=== PATIENT | female | born 1945 | race Caucasian/White ===

== ENCOUNTER 2018-10-20 06:19 | Day surgery (SDC) | payer MEDICARE, OTHER ==
[2018-10-18 11:57] VITALS: BMI 45.7
[~2018-10-20 06:19] MED LIST: LACTATED RINGERS 1,000 ML IV SCH; LIDOCAINE 1% 20 ML VIAL (10MG/ML) FOR IV START INTRADERMA PRN; TETRACAINE 0.5% OPHTH (PF) DROPS 4 ML BTL OP ONE
[2018-10-20] MEDS: PHENYLEPHRINE 2.5% OPHTH DRP 2ML OP NR ×3 (06:45→07:05)
[2018-10-20] MEDS: CYCLOPENTOLATE 1% OPHTH SOLN 2 ML BTL OP ONE ×3 (06:50→07:10)
[2018-10-20 07:12] LABS: Glucose,Whole Blood 132 mg/dL (75-99)
[2018-10-20] MEDS: TOBRAMYCIN 0.3% OPHTH DROPS 5 ML BTL OPHTHALMIC NR ×2 (07:29→07:40)
[2018-10-20] MEDS: TIMOLOL 0.5% OPHTH DROPS 5 ML BTL OP ONE ×2 (07:29→07:40)
[2018-10-20 07:30] VITALS: TEMP 97.8
[2018-10-20] MEDS ORDERED: DUOVISC KIT (GREEN BOX) INTRAOCULA ONE ×2 (07:31→07:40)
[2018-10-20] MEDS ORDERED: BALANCED SALT IRRIG SOLN COMB2 15 ML IRRIG.SOLN INTRAOCULA ONE ×2 (07:31→07:40)
[2018-10-20] MEDS ORDERED: LIDOCAINE 1% (PF) 10MG/ML VIAL SQ ONE ×2 (07:31→07:40)
[2018-10-20] MEDS ORDERED: EPINEPHrine (PF) 0.3 ML in BALANCED SALT IRRIG SOLN COMB2 500 ML IRRIGATION ONE ×4 (07:32)
[2018-10-20] MEDS ORDERED: MIDAZOLAM 2 MG/2 ML VIAL ONE (07:35)
[2018-10-20] MEDS ORDERED: fentaNYL (PF) 50 MCG/ML 2 ML AMP ONE (07:35)
--- NOTE | 2018-10-20 08:09 | P.OP ---
Date of Procedure: 10/20/18 Preoperative Diagnosis: NS Postoperative Diagnosis: same Procedure(s) Performed: PIOL, OD Implants: PCB00 19.00 Anesthesia: MAC Surgeon: Ozzie Kruger Estimated Blood Loss (ml): 0 Pathology: none sent Condition: stable Disposition: same day Indications for Procedure: blurry vision Operative Findings: No complications
[2018-10-20 08:14] VITALS: RESP 18
[2018-10-20 08:41] VITALS: BP 134/74; PULSE 78
--- NOTE | 2018-10-20 20:10 | OP ---
OPERATIVE REPORT DATE OF SURGERY: 10/20/2018. PROCEDURE: Phacoemulsification of cataract and intraocular lens implant of the right eye. PREOPERATIVE DIAGNOSIS: Nuclear sclerosis. POSTOPERATIVE DIAGNOSIS: Nuclear sclerosis. NARRATIVE: After obtaining the appropriate consent, the patient was brought to the operating room. There the patient was placed under cardiac monitoring, prepped and draped in the usual sterile manner. The patient was approached from the @@right@@left temporal side. The @@ mm Jey ring inked in gentian katiuska was placed centrally on the cornea. At the 11 o'clock position, a 1.1 mm keratome was used to create a paracentesis port. Through this opening, 1% Xylocaine MPF 50/50 mix with balanced salt solution was injected into the anterior chamber. This was followed by stabilization of the anterior chamber with Duovisc viscoelastic. At the 9 o'clock position, a 2.75 mm igor keratome was used to create a self-scaling corneal flap incision in a Langerman fashion. Through this opening, a cystotome was introduced to begin a continuous tear capsulorrhexis which was completed using the Utrata forceps. Care was taken to ensure that the capsulorrhexis was at least the size of the ada on the anterior cornea. Hydrodissection and hydrodelineation of the lens was accomplished with balanced salt solution. Phacoemulsification of the lens utilizing phaco chop was accomplished in 26.27 seconds at 16% power. Addition Xylocaine MPF was instilled into the anterior chamber. This was followed by removal of the remaining cortex under irrigation and aspiration along with careful polishing of the posterior capsule in a capsule vacuum mode. Additional Amvisc viscoelastic was then used to stabilize the capsular bag, and the [id number] 19.0 diopter Crystalens intraocular lens was injected into the capsular bag without difficult. The lens was rotated 270 degrees so that the haptics resided at the 6 and 12 o'clock positions, and all remaining viscoelastic was then removed from within the capsular bag and around the anterior chamber. The eye was brought to normal intraocular pressure through the paracentesis port along with slight hydration of the incision sites. Watertight integrity was confirmed using a fluorescein strip. The patient then received 2 drops of 0.5% timolol followed by 2 drops of Vigamox and 2 drops of 1% atropine. The patient was then lightly patched and shielded in the usual manner. There was no complications from the procedure. The patient tolerated the procedure well and was returned to outpatient recovery in good condition. TODD / CLAIRN: [id number] /
== END 2018-10-20 08:54 | disposition home or self-care (01) ==
LOC: OR 06:19
PROVIDERS: ATTEND Ophthalmology
DX: E11.36 Type 2 diabetes mellitus with diabetic cataract (principal); H00.023 Hordeolum internum right eye, unspecified eyelid; H00.026 Hordeolum internum left eye, unspecified eyelid; H01.024 Squamous blepharitis left upper eyelid; H52.4 Presbyopia; H52.11 Myopia, right eye; H52.02 Hypermetropia, left eye; I10 Essential (primary) hypertension; J45.909 Unspecified asthma, uncomplicated; E66.9 Obesity, unspecified; I48.91 Unspecified atrial fibrillation; Z79.4 Long term (current) use of insulin; Z79.899 Other long term (current) drug therapy; Z79.1 Long term (current) use of non-steroidal anti-inflammatories (NSAID); Z88.1 Allergy status to other antibiotic agents; Z79.891 Long term (current) use of opiate analgesic; Z87.891 Personal history of nicotine dependence; Z88.8 Allergy status to other drugs, medicaments and biological substances; Z91.048 Other nonmedicinal substance allergy status; Z68.42 Body mass index [BMI] 45.0-49.9, adult

== ENCOUNTER 2018-11-10 09:19 | Day surgery (SDC) | payer MEDICARE, OTHER ==
[2018-11-04 14:46] VITALS: BMI 44.1
[~2018-11-10 09:19] MED LIST changes: +Pre Op ABX Message 1 EACH MISC MISCELLANE ONE
[2018-11-10 09:52] VITALS: RESP 20; TEMP 97.9
[2018-11-10] MEDS: CYCLOPENTOLATE 1% OPHTH SOLN 2 ML BTL OP ONE ×4 (10:07→10:25)
[2018-11-10] MEDS: PHENYLEPHRINE 2.5% OPHTH DRP 2ML OP NR ×4 (10:12→10:34)
[2018-11-10 10:16] LABS: Glucose,Whole Blood 118 mg/dL (75-99)
[2018-11-10] MEDS ORDERED: MIDAZOLAM 2 MG/2 ML VIAL ONE (11:01)
[2018-11-10] MEDS ORDERED: fentaNYL (PF) 50 MCG/ML 2 ML AMP ONE (11:01)
[2018-11-10] MEDS ORDERED: EPINEPHrine (PF) 0.3 ML in BALANCED SALT IRRIG SOLN COMB2 500 ML IRRIGATION ONE (11:10)
[2018-11-10] MEDS ORDERED: BALANCED SALT IRRIG SOLN COMB2 15 ML IRRIG.SOLN INTRAOCULA ONE ×2 (11:11→11:23)
[2018-11-10] MEDS ORDERED: LIDOCAINE 1% (PF) 10MG/ML VIAL SQ ONE ×2 (11:11→11:23)
[2018-11-10] MEDS ORDERED: HYALURONATE SODIUM INTRAOCULAR 1 EACH SYRINGE (12MG/ML) INTRAOCULA ONE ×2 (11:11→11:22)
[2018-11-10] MEDS: TIMOLOL 0.5% OPHTH DROPS 5 ML BTL OP ONE ×2 (11:13→11:23)
[2018-11-10] MEDS: TOBRAMYCIN 0.3% OPHTH DROPS 5 ML BTL LEFT EYE STA ×2 (11:14→11:23)
--- NOTE | 2018-11-10 11:39 | P.OP ---
Date of Procedure: 11/10/18 Preoperative Diagnosis: NS Postoperative Diagnosis: same Procedure(s) Performed: PIOL, OS Implants: PCB00 20.50 Anesthesia: MAC Surgeon: Ozzie Kruger Estimated Blood Loss (ml): 0 Pathology: none sent Condition: stable Disposition: same day Indications for Procedure: blurry vision Operative Findings: no complications
[2018-11-10 12:04] VITALS: BP 108/70; PULSE 89
--- NOTE | 2018-11-10 20:23 | OP ---
OPERATIVE REPORT PREOPERATIVE DIAGNOSIS: Nuclear sclerosis, left eye. POSTOPERATIVE DIAGNOSIS: Nuclear sclerosis, left eye. OPERATION: Phacoemulsification of cataract and intraocular lens implant of the left eye. ESTIMATED BLOOD LOSS: Zero. SPECIMEN TAKEN: None. NARRATIVE: After obtaining the appropriate consent, the patient was brought to the Operating Room where the patient was placed under cardiac monitoring and prepped and draped in the usual sterile manner. At the 5 o'clock position a 15 degree super sharp blade was used to create a paracentesis followed by instillation of 1% Xylocaine MPF 50:50 mix with BSS into the anterior chamber. This was followed by Amvisc to stabilize the anterior chamber. At the 3 o'clock position a self-sealing corneal flap incision was created using 2.8 mm igor keratome. A cystatome was used to initiate a continuous tear capsulorrhexis which was completed with the Utrata forceps. A Binkhorst cannula was used to hydrodissect the lens nucleus followed by hydrodelineation. Phacoemulsification of the lens was performed utilizing phacochop in 18.62 seconds at 17% power. The remaining cortical material was removed using the irrigation aspiration mode followed by additional 1% Xylocaine MPF into the anterior chamber followed by viscoelastic to stabilize the capsular bag. An [id number] 20.5 diopter posterior chamber lens was placed into the capsular bag without difficulty. The remaining viscoelastic material was removed from the anterior chamber with the irrigation/aspiration. Balanced salt solution was used to normalize the intraocular pressure. The incision was checked for watertight integrity. The patient then received two drops of 0.5% timolol followed by two drops Vigamox, was lightly patched and shielded in the usual manner. There were no complications from the procedure. The patient tolerated the procedure well and was returned to recovery in good condition. MMODL / IJN: [id number] /
== END 2018-11-10 12:26 | disposition home or self-care (01) ==
LOC: OR 09:19
PROVIDERS: ATTEND Ophthalmology
DX: H25.12 Age-related nuclear cataract, left eye (principal); H25.012 Cortical age-related cataract, left eye; E11.9 Type 2 diabetes mellitus without complications; H00.023 Hordeolum internum right eye, unspecified eyelid; H00.026 Hordeolum internum left eye, unspecified eyelid; H01.024 Squamous blepharitis left upper eyelid; H52.4 Presbyopia; H52.11 Myopia, right eye; J30.2 Other seasonal allergic rhinitis; H52.02 Hypermetropia, left eye; Z96.1 Presence of intraocular lens; Z98.41 Cataract extraction status, right eye; I10 Essential (primary) hypertension; Z79.4 Long term (current) use of insulin; Z79.899 Other long term (current) drug therapy; Z83.518 Family history of other specified eye disorder; Z87.891 Personal history of nicotine dependence
CPT/HCPCS: 66984; C1780; J2250; J0171; J3010; J2001

== ENCOUNTER → 2019-10-20 | Outpatient (CLI) | payer MEDICARE, OTHER | END | disposition home or self-care (01) | LOC: LABWHC1 07:05 | PROVIDERS: ATTEND Internal Medicine Clinical Cardiac Electrophysiology | DX: U07.1 COVID-19 (principal) | CPT/HCPCS: 87635 ==

== ENCOUNTER 2019-10-21 09:41 | Day surgery (SDC) | payer MEDICARE, OTHER ==
[~2019-10-21 09:41] MED LIST changes: -LACTATED RINGERS 1,000 ML IV SCH; -LIDOCAINE 1% 20 ML VIAL (10MG/ML) FOR IV START INTRADERMA PRN; -Pre Op ABX Message 1 EACH MISC MISCELLANE ONE; +SODIUM CHLORIDE 0.9% 1,000 ML IV SCH; -TETRACAINE 0.5% OPHTH (PF) DROPS 4 ML BTL OP ONE
[2019-10-21 10:19] LABS: Glucose,Whole Blood 149 mg/dL (75-99)
[2019-10-21] MEDS ORDERED: LIDOCAINE 1% INJ 10MG/ML (20 ML MDV) ONE (10:21)
[2019-10-21] MEDS ORDERED: PROPOFOL 10 MG/ML 20 ML VIAL IV ONE (10:21)
[2019-10-21] MEDS ORDERED: IV FLUID CONTINUATION 1,000 ML IV ONE (10:21)
[2019-10-21 10:25] VITALS: RESP 16; TEMP 97.8
[2019-10-21] MEDS ORDERED: SODIUM CHLORIDE 0.9% 500 ML 500 ML IV ONE (10:27)
--- NOTE | 2019-10-21 11:10 | P.PCN ---
Preoperative Diagnosis: Procedure Electrical cardioversion Diagnosis Symptomatic persistent atrial fibrillation despite being adequately rate controlled Patient doesn't ELIQUIS 5 mg twice daily Started on flecainide 50 mg twice daily 3 days prior to the procedure Also on metoprolol 25 mg twice daily for rate control Details of procedure Successful electrical cardioversion with a 360 J biphasic shock in the AP configuration Patient back in sinus rhythm between 45-50 beats a minute Plan Continue ELIQUIS Continue flecainide 50 mg twice daily Reduce the dose of metoprolol tartrate 212.5 mg by mouth daily in the morning only 24-hour Holter monitor next week Follow Dr. Valdes in 3 weeks
--- NOTE | 2019-10-21 11:13 | P.PRLE ---
RE: Bernice Chou Dear Imad Patient underwent successful electrical cardioversion to sinus rhythm for symptomatic persistent atrial fibrillation However she does have a slow heart rate in sinus rhythm and I have backed off on her dose of metoprolol to 1.5 mg by mouth daily number morning Atorvastatin continue flecainide 50 g twice daily as well as gallop was I will see her again in a few weeks Thank you for entrusting me with the care of the patient Warm regards Sincerely Ben Valdes
[2019-10-21 11:21] LABS: African American GFR (CKD) >90 (>60 ml/min/1.73 sqM); Anion Gap 6 mmol/L; Blood Urea Nitrogen 26 mg/dL (7-17); Calcium 8.2 mg/dL (8.4-10.2); Carbon Dioxide 20 mmol/L (22-30); Chloride 111 mmol/L (98-107); Glucose 149 mg/dL (74-99); Non-African American GFR(CKD) 86 (>60 ml/min/1.73 sqM); Sodium 137 mmol/L (137-145)
[2019-10-21 16:42] VITALS: BP 134/63; PULSE 48
== END 2019-10-21 12:55 | disposition home or self-care (01) ==
LOC: CATHCVL 09:41
PROVIDERS: ATTEND Internal Medicine Clinical Cardiac Electrophysiology
DX: I48.19 Other persistent atrial fibrillation (principal); E66.9 Obesity, unspecified; E11.9 Type 2 diabetes mellitus without complications; I50.33 Acute on chronic diastolic (congestive) heart failure; I11.0 Hypertensive heart disease with heart failure; I35.0 Nonrheumatic aortic (valve) stenosis; I25.10 Atherosclerotic heart disease of native coronary artery without angina pectoris; J44.9 Chronic obstructive pulmonary disease, unspecified; Z68.43 Body mass index [BMI] 50.0-59.9, adult; G47.33 Obstructive sleep apnea (adult) (pediatric); Z79.01 Long term (current) use of anticoagulants; Z79.899 Other long term (current) drug therapy; Z79.4 Long term (current) use of insulin; Z88.1 Allergy status to other antibiotic agents; Z98.811 Dental restoration status; Z98.890 Other specified postprocedural states; Z96.653 Presence of artificial knee joint, bilateral; Z98.84 Bariatric surgery status; Z90.49 Acquired absence of other specified parts of digestive tract; Z90.710 Acquired absence of both cervix and uterus; Z91.89 Other specified personal risk factors, not elsewhere classified; Z82.49 Family history of ischemic heart disease and other diseases of the circulatory system
CPT/HCPCS: 80048; 92960

== ENCOUNTER 2020-07-09 13:27 | Emergency (ER) | payer MEDICARE, OTHER ==
[2020-07-09 13:34] VITALS: TEMP 97.8
[2020-07-09] MEDS ORDERED: ORPHENADRINE 30 MG/ML 2 ML VIAL IVP STA (14:21)
[2020-07-09] MEDS ORDERED: KETOROLAC 15 MG/ML 1 ML VIAL IVP STA (14:21)
--- NOTE | 2020-07-09 14:25 | ED ---
General Adult HPI - General Chief complaint: Back Pain/Injury Stated complaint: +Covid, back pain Time Seen by Provider: 07/09/20 14:07 Source: patient Mode of arrival: wheelchair Limitations: no limitations - History of Present Illness Initial comments: 74-year-old female with a past medical history of atrial fibrillation, heart failure, diabetes mellitus, back pain presents to the emergency room for a chief complaint of worsening back pain. Patient reports that she has had back pain on and off for years. States it has worsened in the past few days. States his right lower back and radiates to her right buttock and right lower abdomen. Patient states this worsens with movement such as getting in and out of bed. Denies nausea vomiting diarrhea. Denies weakness of the lower extremities, tingling in the lower extremities, numbness or tingling in the saddle region, or bladder or bowel changes. Patient was tested Covid positive four days ago. She reports that she has had intermittent chills but has not checked for a fever. She denies any shortness of breath associated with this whatsoever. She states her symptoms have included a head cold for the past 2 weeks. - Related Data Home Medications Medication Instructions Recorded Confirmed sitaGLIPtin [Januvia] 100 mg PO HS 10/18/18 07/09/20 Flecainide [Tambocor] 50 mg PO Q12HR 10/20/19 07/09/20 Amoxic-Pot Clav 875-125Mg 1 tab PO BID 07/09/20 07/09/20 [Augmentin 875-125] Ascorbic Acid/Multivit-Min 1,000 mg PO DAILY 07/09/20 07/09/20 [Emergen-C 1,000 mg Packet] Aspirin EC [Ecotrin Low Dose] 81 mg PO DAILY 07/09/20 07/09/20 Bumetanide [Bumex] 1 mg PO DAILY 07/09/20 07/09/20 Cholecalciferol (Vitamin D3) 125 mcg PO DAILY 07/09/20 07/09/20 [Vitamin D3 (5000 Iu)] Dexamethasone [Decadron] 4 mg PO BID 07/09/20 07/09/20 Diclofenac Sodium [Voltaren 2 gm TOPICAL QID PRN 07/09/20 07/09/20 Arthritis Pain 1% Gel] Insulin Glargine,Hum.rec.anlog 45 unit SQ DAILY 07/09/20 07/09/20 [Lantus Solostar] Pantoprazole Sodium [Protonix] 40 mg PO BID 07/09/20 07/09/20 Potassium Gluconate 99 mg PO DAILY 07/09/20 07/09/20 traMADol HCL 25 - 50 mg PO Q8H PRN 07/09/20 07/09/20 Previous Rx's Medication Instructions Recorded Metoprolol Tartrate 12.5 mg PO DAILY #90 tab 10/21/19 Azithromycin [Zithromax Z-pack (6 250 mg PO DIRECTED #6 tab 07/09/20 tabs)] Allergies Allergy/AdvReac Type Severity Reaction Status Date / Time adhesive tape Allergy tears skin Verified 07/09/20 13:34 ciprofloxacin [From Cipro] Allergy Rash/Hives Verified 07/09/20 13:34 doxycycline Allergy Rash/Hives Verified 07/09/20 13:34 hydrochlorothiazide Allergy Unknown Verified 07/09/20 13:34 pioglitazone [From Actos] Allergy Swelling Verified 07/09/20 13:34 "HCL" AdvReac Cough Uncoded 07/09/20 13:34 Review of Systems ROS Statement: Those systems with pertinent positive or pertinent negative responses have been documented in the HPI. ROS Other: All systems not noted in ROS Statement are negative. Past Medical History Past Medical History: Atrial Fibrillation, Heart Failure, Diabetes Mellitus, Osteoarthritis (OA) Additional Past Medical History / Comment(s): states SOB, back pain-receiving physical therapy., has Lap Band (does not think there is fluid in it), [place], [facility] History of Any Multi-Drug Resistant Organisms: None Reported Past Surgical History: Bariatric Surgery, Hysterectomy, Joint Replacement, Orthopedic Surgery Additional Past Surgical History / Comment(s): katie knee replacements,katie knee arthroscopies,katie ovaries removed,lap band placed x 2-"doesn't think there is fluid is present", cataracts. Past Anesthesia/Blood Transfusion Reactions: Previous Problems w/ Anesthesia, Family History of Problems w/ Anesthesia, Motion Sickness Additional Past Anesthesia/Blood Transfusion Reaction / Comment(s): states she was alert when I was getting put under and the tube going into my throat and I panicked, trouble waking up with general anesthesia. mother-ponv Past Psychological History: Depression Smoking Status: Never smoker Past Alcohol Use History: Occasional Past Drug Use History: None Reported - Past Family History Mother Additional Family Medical History / Comment(s): breast,bladder,lung Father Family Medical History: No Reported History General Exam Limitations: no limitations General appearance: alert Head exam: Present: atraumatic Eye exam: Present: normal appearance, PERRL, EOMI. Absent: scleral icterus ENT exam: Present: normal exam, mucous membranes moist Neck exam: Present: normal inspection, full ROM Respiratory exam: Present: normal lung sounds bilaterally. Absent: respiratory distress, wheezes Cardiovascular Exam: Present: regular rate, normal rhythm, normal heart sounds GI/Abdominal exam: Present: soft, normal bowel sounds. Absent: distended, tenderness, guarding, rebound, rigid Extremities exam: Present: normal capillary refill (cap refill < 2 seconds, DP pulses 2+ and equal bilaterally) Back exam: Present: CVA tenderness (R). Absent: full ROM (Patient has pain getting in and out of bed but is able to stand and ambulate.), CVA tenderness (L) Course Vital Signs 07/09/20 07/09/20 07/09/20 13:29 16:17 16:29 Temperature 97.8 F Pulse Rate 66 57 L 58 L Respiratory 20 18 18 Rate Blood Pressure 184/68 163/87 172/79 O2 Sat by Pulse 95 98 97 Oximetry Medical Decision Making - Medical Decision Making Vitals are stable. Patient is well-appearing. Neurovascular status intact in lower extremity. No red flag symptoms. Patient has chronic back pain that is worsening. Currently in therapy for this. Does appear must go skeletal in nature if patient has increased pain with getting up out of bed and feels better while walking around rather than sitting. CBC was obtained. Hemoglobin 9.6, patient admits to chronic anemia. CMP does show evidence of hyperglycemia. Patient is a diabetic. This was repeated and is 273. Given history of Covid chest x-ray was obtained. This did recommend correlating to exclude pulmonary venous hypertension and early interstitial edema. Patient was given a dose of Lasix. BNP was obtained which was 1400. Patient has a history of heart failure and takes Lasix. She denies any increased shortness of breath at this time. Chest x-ray was repeated which was a patchy right perihilar density that may reflect underlying pneumonia. Patient was started on azithromycin given history of Covid and cough. Patient's pain much better after Toradol and Norflex. At this time I recommend patient follow up with orthopedics as she has not had an MRI of her back. She will be given Tylenol 3 for home. She will follow up with her doctor for repeat chest x-ray as well as repeat lab work. She will return here for any worsening symptoms. I discussed this case with attending Dr. White who agrees with this assessment and treatment plan. - Lab Data Result diagrams: 07/09/20 14:45 07/09/20 14:45 Lab Results 07/09/20 07/09/20 07/09/20 Range/Units 14:45 14:45 15:11 WBC 6.4 (3.8-10.6) k/uL RBC 4.32 (3.80-5.40) m/uL Hgb 9.6 L (11.4-16.0) gm/dL Hct 32.0 L (34.0-46.0) % MCV 74.2 L (80.0-100.0) fL MCH 22.2 L (25.0-35.0) pg MCHC 29.9 L (31.0-37.0) g/dL RDW 16.2 H (11.5-15.5) % Plt Count 155 (150-450) k/uL MPV 7.6 Neutrophils % 82 % Lymphocytes % 12 % Monocytes % 5 % Eosinophils % 0 % Basophils % 0 % Neutrophils # 5.2 (1.3-7.7) k/uL Lymphocytes # 0.7 L (1.0-4.8) k/uL Monocytes # 0.3 (0-1.0) k/uL Eosinophils # 0.0 (0-0.7) k/uL Basophils # 0.0 (0-0.2) k/uL Hypochromasia Marked Anisocytosis Slight Microcytosis Slight Sodium 132 L (137-145) mmol/L Potassium 4.7 (3.5-5.1) mmol/L Chloride 101 (98-107) mmol/L Carbon Dioxide 21 L (22-30) mmol/L Anion Gap 10 mmol/L BUN 19 H (7-17) mg/dL Creatinine 0.62 (0.52-1.04) mg/dL Est GFR (CKD-EPI)AfAm >90 (>60 ml/min/1.73 sqM) Est GFR (CKD-EPI)NonAf >90 (>60 ml/min/1.73 sqM) Glucose 330 H (74-99) mg/dL POC Glucose (mg/dL) (75-99) mg/dL POC Glu Jacquard Loom Card Changer ID Calcium 8.8 (8.4-10.2) mg/dL Total Bilirubin 0.8 (0.2-1.3) mg/dL AST 46 H (14-36) U/L ALT 34 (4-34) U/L Alkaline Phosphatase 92 (38-126) U/L Troponin I (0.000-0.034) ng/mL NT-Pro-B Natriuret Pep pg/mL Total Protein 7.2 (6.3-8.2) g/dL Albumin 3.5 (3.5-5.0) g/dL Amylase 41 (30-110) U/L Lipase 120 (23-300) U/L Urine Color Yellow Urine Appearance Clear (Clear) Urine pH 6.5 (5.0-8.0) Ur Specific [place] 1.018 (1.001-1.035) Urine Protein 1+ H (Negative) Urine Glucose (UA) 4+ H (Negative) Urine Ketones Negative (Negative) Urine Blood Negative (Negative) Urine Nitrite Negative (Negative) Urine Bilirubin Negative (Negative) Urine Urobilinogen <2.0 (<2.0) mg/dL Ur Leukocyte Esterase Negative (Negative) Urine RBC 1 (0-5) /hpf Urine WBC <1 (0-5) /hpf Ur Squamous Epith Cells <1 (0-4) /hpf Urine Mucus Rare H (None) /hpf 07/09/20 07/09/20 07/09/20 Range/Units 16:16 16:23 17:20 WBC (3.8-10.6) k/uL RBC (3.80-5.40) m/uL Hgb (11.4-16.0) gm/dL Hct (34.0-46.0) % MCV (80.0-100.0) fL MCH (25.0-35.0) pg MCHC (31.0-37.0) g/dL RDW (11.5-15.5) % Plt Count (150-450) k/uL MPV Neutrophils % % Lymphocytes % % Monocytes % % Eosinophils % % Basophils % % Neutrophils # (1.3-7.7) k/uL Lymphocytes # (1.0-4.8) k/uL Monocytes # (0-1.0) k/uL Eosinophils # (0-0.7) k/uL Basophils # (0-0.2) k/uL Hypochromasia Anisocytosis Microcytosis Sodium (137-145) mmol/L Potassium (3.5-5.1) mmol/L Chloride (98-107) mmol/L Carbon Dioxide (22-30) mmol/L Anion Gap mmol/L BUN (7-17) mg/dL Creatinine (0.52-1.04) mg/dL Est GFR (CKD-EPI)AfAm (>60 ml/min/1.73 sqM) Est GFR (CKD-EPI)NonAf (>60 ml/min/1.73 sqM) Glucose (74-99) mg/dL POC Glucose (mg/dL) 273 H (75-99) mg/dL POC Glu Jacquard Loom Card Changer ID Miguel Angel, II, Joshua Calcium (8.4-10.2) mg/dL Total Bilirubin (0.2-1.3) mg/dL AST (14-36) U/L ALT (4-34) U/L Alkaline Phosphatase (38-126) U/L Troponin I 0.012 (0.000-0.034) ng/mL NT-Pro-B Natriuret Pep 1430 pg/mL Total Protein (6.3-8.2) g/dL Albumin (3.5-5.0) g/dL Amylase (30-110) U/L Lipase (23-300) U/L Urine Color Urine Appearance (Clear) Urine pH (5.0-8.0) Ur Specific [place] (1.001-1.035) Urine Protein (Negative) Urine Glucose (UA) (Negative) Urine Ketones (Negative) Urine Blood (Negative) Urine Nitrite (Negative) Urine Bilirubin (Negative) Urine Urobilinogen (<2.0) mg/dL Ur Leukocyte Esterase (Negative) Urine RBC (0-5) /hpf Urine WBC (0-5) /hpf Ur Squamous Epith Cells (0-4) /hpf Urine Mucus (None) /hpf Disposition Clinical Impression: Back pain, Pneumonia, Anemia, Hyperglycemia Disposition: HOME SELF-CARE Condition: Good Instructions (If sedation given, give patient instructions): Acute Low Back Pain (ED) Additional Instructions: Please take Tylenol 3 as needed for pain. Take antibiotic for pneumonia, this was sent to your pharmacy. Follow-up with your doctor for repeat lab work including hemoglobin and repeat chest x-ray to ensure resolution. If you develop any worsening symptoms return to the emergency room. Prescriptions: Azithromycin [Zithromax Z-pack (6 tabs)] 250 mg PO DIRECTED #6 tab Is patient prescribed a controlled substance at d/c from ED?: No Referrals: Ld Betancur MD [Primary Care Provider] - 1-2 days Time of Disposition: 17:28
[2020-07-09 14:56] LABS: Anisocytosis Slight; Basophils % (A) 0 %; Eosinophils % (A) 0 %; HGB 9.6 gm/dL (11.4-16.0); Hypochromasia Marked; Lymphocytes # (A) 0.7 k/uL (1.0-4.8); Lymphocytes % (A) 12 %; MCH 22.2 pg (25.0-35.0); MCHC 29.9 g/dL (31.0-37.0); MCV 74.2 fL (80.0-100.0); Mean Platelet Volume 7.6; Microcytosis Slight; Monocytes # (A) 0.3 k/uL (0-1.0); Monocytes % (A) 5 %; Neutrophils # (A) 5.2 k/uL (1.3-7.7); Neutrophils % (A) 82 %; Platelet Count 155 k/uL (150-450); RBC 4.32 m/uL (3.80-5.40); RDW 16.2 % (11.5-15.5); WBC 6.4 k/uL (3.8-10.6)
[2020-07-09 15:04] LABS: ALT 34 U/L (4-34); AST 46 U/L (14-36); African American GFR (CKD) >90 (>60 ml/min/1.73 sqM); Albumin 3.5 g/dL (3.5-5.0); Alkaline Phosphatase 92 U/L (38-126); Amylase 41 U/L (30-110); Anion Gap 10 mmol/L; Blood Urea Nitrogen 19 mg/dL (7-17); Calcium 8.8 mg/dL (8.4-10.2); Carbon Dioxide 21 mmol/L (22-30); Chloride 101 mmol/L (98-107); Glucose 330 mg/dL (74-99); Lipase 120 U/L (23-300); Non-African American GFR(CKD) >90 (>60 ml/min/1.73 sqM); Potassium 4.7 mmol/L (3.5-5.1); Sodium 132 mmol/L (137-145); Total Bilirubin 0.8 mg/dL (0.2-1.3); Total Protein 7.2 g/dL (6.3-8.2)
[2020-07-09 15:14] LABS: Appearance,Urine Clear (Clear); Bilirubin,Urine Negative (Negative); Blood,Urine Negative (Negative); Color,Urine Yellow; Glucose,Urine (UA) 4+ (Negative); Ketones,Urine Negative (Negative); Leukocyte Esterase,Urine Negative (Negative); Mucus,Urine Rare /hpf; Nitrite,Urine Negative (Negative); PH, Urine 6.5 (5.0-8.0); Protein,Urine 1+ (Negative); RBC,Urine 1 /hpf (0-5); Specific Gravity,Urine 1.018 (1.001-1.035); Squamous Epithelial Cell,Urine <1 /hpf (0-4); Urobilinogen,Urine <2.0 mg/dL (<2.0); WBC,Urine <1 /hpf (0-5)
--- NOTE | 2020-07-09 15:47 | XR ---
EXAMINATION TYPE: XR chest 1V portable DATE OF EXAM: 07/09/2020 COMPARISON: NONE HISTORY: Abdominal pain, chest pain TECHNIQUE: Single frontal view of the chest is obtained. FINDINGS: Patient is rotated. Heart is enlarged. Central vascularity is prominent. No evident pneumo thorax or pleural effusion. Right hemidiaphragm is elevated. Difficult to exclude basilar density. IMPRESSION: Correlate to exclude pulmonary venous hypertension and early interstitial edema. Exam is limited by patient body habitus. Consider follow-up PA and lateral chest x-ray for better evaluation .
[2020-07-09] MEDS ORDERED: FUROSEMIDE 10 MG/ML 4 ML VIAL IV STA (15:49)
--- NOTE | 2020-07-09 16:11 | XR ---
EXAMINATION TYPE: XR chest 2V DATE OF EXAM: 07/09/2020 COMPARISON: 07/09/2020 from earlier in the day HISTORY: Shortness of breath TECHNIQUE: Frontal and lateral views of the chest are obtained. FINDINGS: Scattered senescent parenchymal changes noted. Patchy right perihilar density may reflect underlying pneumonia. Correlate clinically and progress st udies are advised. Heart size is stable. Mediastinal structures are stable and grossly unremarkable. No evidence for hilar prominence. Degenerative changes dorsal spine. IMPRESSION: 1. Patchy right perihilar density may reflect underlying pneumonia. Correlate clinically and progress studies are advised.
[2020-07-09 16:18] VITALS: RESP 18
[2020-07-09 16:31] VITALS: BP 172/79; PULSE 58
[2020-07-09 17:21] LABS: Glucose,Whole Blood 273 mg/dL (75-99)
[2020-07-09] MEDS ORDERED: AZITHROMYCIN 500 MG TAB PO STA (17:24)
[2020-07-09] MEDS ORDERED: ACET/COD 300 MG/30 MG STARTER PACK 6 TAB BTL PO STA (17:25)
== END 2020-07-09 18:00 | disposition home or self-care (01) ==
LOC: EC 13:27
DX: U07.1 COVID-19 (principal); J12.82 Pneumonia due to coronavirus disease 2019; D64.9 Anemia, unspecified; M54.9 Dorsalgia, unspecified; E11.65 Type 2 diabetes mellitus with hyperglycemia; I48.91 Unspecified atrial fibrillation; I50.9 Heart failure, unspecified; Z79.4 Long term (current) use of insulin; Z79.82 Long term (current) use of aspirin; Z79.899 Other long term (current) drug therapy; Z79.52 Long term (current) use of systemic steroids; Z91.048 Other nonmedicinal substance allergy status; Z88.1 Allergy status to other antibiotic agents; Z88.8 Allergy status to other drugs, medicaments and biological substances; Z96.653 Presence of artificial knee joint, bilateral; Z98.84 Bariatric surgery status
CPT/HCPCS: 99284 ×2; 96374 ×2; 96375 ×3; 36415; 93005; 83880; 80053; 82150; 83690; 84484; 85025; 81001; 71045; 71046; J1940; J2360; J1885

== ENCOUNTER 2020-07-16 15:35 | Inpatient (IN) | payer MEDICARE, OTHER ==
[2020-07-16] MEDS ORDERED: ALBUTEROL HFA INHALER INHALATION STA (15:52)
--- NOTE | 2020-07-16 16:05 | ED ---
SOB HPI - General Chief Complaint: Shortness of Breath Stated Complaint: SMITH Time Seen by Provider: 07/16/20 15:40 Source: patient Mode of arrival: wheelchair Limitations: no limitations - History of Present Illness Initial Comments: 74-year-old female past history of A. fib, heart failure, diabetes who presents to the emergency department with shortness of breath. Patient was diagnosed with covid on 07/09. She was tested after she had 2 weeks of what she describes as a head cold. Seat treatment with multiple vitamins and Decadron. Patient has gotten progressively worse in regards to her shortness of breath. She admits to nausea. No vomiting or diarrhea. Denies chest pain. Admits to worsening lower extremity edema. No history of DVT or PE. Patient is not on any anticoagulation due to a gastric ulcer. She spoke with Dr. Betancur today who recommended that she come in to the emergency room for evaluation. Patient has no underlying lung issues. No other alleviating, precipitating or modifying factors - Related Data Home Medications Medication Instructions Recorded Confirmed sitaGLIPtin [Januvia] 100 mg PO HS 10/18/18 07/16/20 Flecainide [Tambocor] 50 mg PO Q12HR 10/20/19 07/16/20 Ascorbic Acid/Multivit-Min 1,000 mg PO DAILY 07/09/20 07/16/20 [Emergen-C 1,000 mg Packet] Bumetanide [Bumex] 1 mg PO DAILY 07/09/20 07/16/20 Cholecalciferol (Vitamin D3) 125 mcg PO DAILY 07/09/20 07/16/20 [Vitamin D3 (5000 Iu)] Diclofenac Sodium [Voltaren 2 gm TOPICAL QID PRN 07/09/20 07/16/20 Arthritis Pain 1% Gel] Insulin Glargine,Hum.rec.anlog 45 unit SQ DAILY 07/09/20 07/16/20 [Lantus Solostar] Pantoprazole Sodium [Protonix] 40 mg PO BID 07/09/20 07/16/20 Potassium Gluconate 99 mg PO DAILY 07/09/20 07/16/20 Acetaminophen-Codeine 300-30mg 1 tab PO Q6H PRN 07/16/20 07/16/20 [Tylenol w/codeine #3] Albuterol Inhaler [Ventolin Hfa 2 puff INHALATION RT-Q6H PRN 07/16/20 07/16/20 Inhaler] Azithromycin [Zithromax] See Taper PO DAILY 07/16/20 07/16/20 Previous Rx's Medication Instructions Recorded Metoprolol Tartrate 12.5 mg PO DAILY #90 tab 10/21/19 Allergies Allergy/AdvReac Type Severity Reaction Status Date / Time adhesive tape Allergy tears skin Verified 07/16/20 16:44 ciprofloxacin [From Cipro] Allergy Rash/Hives Verified 07/16/20 16:44 doxycycline Allergy Rash/Hives Verified 07/16/20 16:44 hydrochlorothiazide Allergy Unknown Verified 07/16/20 16:44 pioglitazone [From Actos] Allergy Swelling Verified 07/16/20 16:44 "HCL" AdvReac Cough Uncoded 07/09/20 13:34 Review of Systems ROS Statement: Those systems with pertinent positive or pertinent negative responses have been documented in the HPI. ROS Other: All systems not noted in ROS Statement are negative. Past Medical History Past Medical History: Atrial Fibrillation, Heart Failure, Diabetes Mellitus, Osteoarthritis (OA) Additional Past Medical History / Comment(s): states SOB, back pain-receiving physical therapy., has Lap Band (does not think there is fluid in it), TELIDA, See Cardiology H & P. History of Any Multi-Drug Resistant Organisms: None Reported Past Surgical History: Bariatric Surgery, Hysterectomy, Joint Replacement, Orthopedic Surgery Additional Past Surgical History / Comment(s): katie knee replacements,katie knee arthroscopies,katie ovaries removed,lap band placed x 2-"doesn't think there is fluid is present", cataracts. Past Anesthesia/Blood Transfusion Reactions: Previous Problems w/ Anesthesia, Family History of Problems w/ Anesthesia, Motion Sickness Additional Past Anesthesia/Blood Transfusion Reaction / Comment(s): states she was alert when I was getting put under and the tube going into my throat and I panicked, trouble waking up with general anesthesia. mother-ponv Past Psychological History: Depression Smoking Status: Never smoker Past Alcohol Use History: Occasional Past Drug Use History: None Reported - Past Family History Mother Additional Family Medical History / Comment(s): breast,bladder,lung Father Family Medical History: No Reported History General Exam Limitations: no limitations General appearance: alert, anxious Head exam: Present: atraumatic, normocephalic, normal inspection Eye exam: Present: normal appearance, PERRL, EOMI. Absent: scleral icterus, conjunctival injection, periorbital swelling ENT exam: Present: normal exam, mucous membranes moist Neck exam: Present: normal inspection. Absent: tenderness, meningismus, lymphadenopathy Respiratory exam: Present: accessory muscle use, decreased breath sounds, other (conversational dyspnea). Absent: respiratory distress, wheezes, rales, rhonchi, stridor Cardiovascular Exam: Present: regular rate, normal rhythm, normal heart sounds. Absent: systolic murmur, diastolic murmur, rubs, gallop, clicks GI/Abdominal exam: Present: soft, normal bowel sounds. Absent: distended, tenderness, guarding, rebound, rigid Extremities exam: Present: normal inspection, full ROM, normal capillary refill. Absent: tenderness, pedal edema, joint swelling, calf tenderness Back exam: Present: normal inspection Neurological exam: Present: alert, oriented X3, CN II-XII intact Psychiatric exam: Present: normal affect, normal mood Skin exam: Present: warm, dry, intact, normal color. Absent: rash Course Vital Signs 07/16/20 07/16/20 07/16/20 15:38 16:08 17:00 Temperature 98.7 F Pulse Rate 73 Respiratory 23 30 H Rate Blood Pressure 146/66 O2 Sat by Pulse 83 L 97 Oximetry 07/16/20 07/16/20 18:18 19:00 Temperature 98.5 F Pulse Rate 70 67 Respiratory 28 H 20 Rate Blood Pressure 144/70 143/64 O2 Sat by Pulse 97 100 Oximetry Medical Decision Making - Medical Decision Making Upon arrival patient is placed into room 2. Patient is only saturating 83% on room air. She is placed on a nonrebreather. IV is established. Laboratory studies were conducted and patient had chest x-ray performed. Laboratory studies are reviewed demonstrated d-dimer of 1.2. Lactic acid 2.6. LDH 1468. C-reactive protein 138. Coronavirus is detected. Chest x-ray demonstrates mild pulmonary interstitial pneumonia that is increased compared to last exam. As patient does have an elevated d-dimer with hypoxia and is not on any anticoagulation the patient does go for a CTA which does not demonstrate any main central pulmonary emboli. The results are discussed the patient. Did recommend consultation for which the patient did agree to. She will be placed on Lovenox, Decadron and antibiotics after discussion with Dr. Betancur. Patient remained in stable condition and was transported to the floor - Lab Data Result diagrams: 07/18/20 05:45 07/18/20 05:45 Lab Results 07/16/20 07/16/20 07/16/20 Range/Units 16:42 16:42 16:42 WBC 7.5 (3.8-10.6) k/uL RBC 4.49 (3.80-5.40) m/uL Hgb 10.2 L (11.4-16.0) gm/dL Hct 33.5 L (34.0-46.0) % MCV 74.6 L (80.0-100.0) fL MCH 22.6 L (25.0-35.0) pg MCHC 30.4 L (31.0-37.0) g/dL RDW 16.5 H (11.5-15.5) % Plt Count 128 L (150-450) k/uL MPV 6.5 Neutrophils % 80 % Lymphocytes % 11 % Monocytes % 4 % Eosinophils % 1 % Basophils % 1 % Neutrophils # 6.0 (1.3-7.7) k/uL Lymphocytes # 0.8 L (1.0-4.8) k/uL Monocytes # 0.3 (0-1.0) k/uL Eosinophils # 0.0 (0-0.7) k/uL Basophils # 0.1 (0-0.2) k/uL Hypochromasia Marked Anisocytosis Slight Microcytosis Slight PT 11.3 (9.0-12.0) sec INR 1.1 (<1.2) APTT 23.7 (22.0-30.0) sec D-Dimer 1.21 H (<0.60) mg/L FEU Sodium 133 L (137-145) mmol/L Potassium 4.6 (3.5-5.1) mmol/L Chloride 102 (98-107) mmol/L Carbon Dioxide 23 (22-30) mmol/L Anion Gap 8 mmol/L BUN 18 H (7-17) mg/dL Creatinine 0.71 (0.52-1.04) mg/dL Est GFR (CKD-EPI)AfAm >90 (>60 ml/min/1.73 sqM) Est GFR (CKD-EPI)NonAf 86 (>60 ml/min/1.73 sqM) Glucose 182 H (74-99) mg/dL Lactic Ac Sepsis Rflx Plasma Lactic Acid Ubaldo (0.7-2.0) mmol/L Calcium 7.9 L (8.4-10.2) mg/dL Magnesium 2.0 (1.6-2.3) mg/dL Ferritin 624.2 H (10.0-291.0) ng/mL Total Bilirubin 1.1 (0.2-1.3) mg/dL AST 69 H (14-36) U/L ALT 40 H (4-34) U/L Alkaline Phosphatase 114 (38-126) U/L Lactate Dehydrogenase 1468 H (313-618) U/L C-Reactive Protein 138.5 H (<10.0) mg/L Total Protein 6.2 L (6.3-8.2) g/dL Albumin 2.8 L (3.5-5.0) g/dL Procalcitonin (0.02-0.09) ng/mL Coronavirus (PCR) (Not Detectd) Influenza Type A RNA (Not Detectd) Influenza Type B (PCR) (Not Detectd) 07/16/20 07/16/20 07/16/20 Range/Units 16:42 16:42 16:42 WBC (3.8-10.6) k/uL RBC (3.80-5.40) m/uL Hgb (11.4-16.0) gm/dL Hct (34.0-46.0) % MCV (80.0-100.0) fL MCH (25.0-35.0) pg MCHC (31.0-37.0) g/dL RDW (11.5-15.5) % Plt Count (150-450) k/uL MPV Neutrophils % % Lymphocytes % % Monocytes % % Eosinophils % % Basophils % % Neutrophils # (1.3-7.7) k/uL Lymphocytes # (1.0-4.8) k/uL Monocytes # (0-1.0) k/uL Eosinophils # (0-0.7) k/uL Basophils # (0-0.2) k/uL Hypochromasia Anisocytosis Microcytosis PT (9.0-12.0) sec INR (<1.2) APTT (22.0-30.0) sec D-Dimer (<0.60) mg/L FEU Sodium (137-145) mmol/L Potassium (3.5-5.1) mmol/L Chloride (98-107) mmol/L Carbon Dioxide (22-30) mmol/L Anion Gap mmol/L BUN (7-17) mg/dL Creatinine (0.52-1.04) mg/dL Est GFR (CKD-EPI)AfAm (>60 ml/min/1.73 sqM) Est GFR (CKD-EPI)NonAf (>60 ml/min/1.73 sqM) Glucose (74-99) mg/dL Lactic Ac Sepsis Rflx Plasma Lactic Acid Ubaldo 2.6 H* (0.7-2.0) mmol/L Calcium (8.4-10.2) mg/dL Magnesium (1.6-2.3) mg/dL Ferritin (10.0-291.0) ng/mL Total Bilirubin (0.2-1.3) mg/dL AST (14-36) U/L ALT (4-34) U/L Alkaline Phosphatase (38-126) U/L Lactate Dehydrogenase (313-618) U/L C-Reactive Protein (<10.0) mg/L Total Protein (6.3-8.2) g/dL Albumin (3.5-5.0) g/dL Procalcitonin 0.20 H (0.02-0.09) ng/mL Coronavirus (PCR) (Not Detectd) Influenza Type A RNA Not Detected (Not Detectd) Influenza Type B (PCR) Not Detected (Not Detectd) 07/16/20 07/16/20 Range/Units 16:45 17:03 WBC (3.8-10.6) k/uL RBC (3.80-5.40) m/uL Hgb (11.4-16.0) gm/dL Hct (34.0-46.0) % MCV (80.0-100.0) fL MCH (25.0-35.0) pg MCHC (31.0-37.0) g/dL RDW (11.5-15.5) % Plt Count (150-450) k/uL MPV Neutrophils % % Lymphocytes % % Monocytes % % Eosinophils % % Basophils % % Neutrophils # (1.3-7.7) k/uL Lymphocytes # (1.0-4.8) k/uL Monocytes # (0-1.0) k/uL Eosinophils # (0-0.7) k/uL Basophils # (0-0.2) k/uL Hypochromasia Anisocytosis Microcytosis PT (9.0-12.0) sec INR (<1.2) APTT (22.0-30.0) sec D-Dimer (<0.60) mg/L FEU Sodium (137-145) mmol/L Potassium (3.5-5.1) mmol/L Chloride (98-107) mmol/L Carbon Dioxide (22-30) mmol/L Anion Gap mmol/L BUN (7-17) mg/dL Creatinine (0.52-1.04) mg/dL Est GFR (CKD-EPI)AfAm (>60 ml/min/1.73 sqM) Est GFR (CKD-EPI)NonAf (>60 ml/min/1.73 sqM) Glucose (74-99) mg/dL Lactic Ac Sepsis Rflx Y Plasma Lactic Acid Ubaldo (0.7-2.0) mmol/L Calcium (8.4-10.2) mg/dL Magnesium (1.6-2.3) mg/dL Ferritin (10.0-291.0) ng/mL Total Bilirubin (0.2-1.3) mg/dL AST (14-36) U/L ALT (4-34) U/L Alkaline Phosphatase (38-126) U/L Lactate Dehydrogenase (313-618) U/L C-Reactive Protein (<10.0) mg/L Total Protein (6.3-8.2) g/dL Albumin (3.5-5.0) g/dL Procalcitonin (0.02-0.09) ng/mL Coronavirus (PCR) Detected A (Not Detectd) Influenza Type A RNA (Not Detectd) Influenza Type B (PCR) (Not Detectd) - EKG Data EKG Comments: EKG demonstrates a normal sinus rhythm with a ventricular rate of 68. OH Interval 98. QRS 104. QTC of 478. No acute ST segment elevations or depressions. Some baseline artifact in V1 through V3 Disposition Clinical Impression: COVID-19, Hypoxia Disposition: ADMITTED IP TO THIS [facility] Condition: Serious Is patient prescribed a controlled substance at d/c from ED?: No Decision to Admit Reason: Admit from EC Decision Date: 07/16/20 Decision Time: 17:32
[2020-07-16 16:46] LABS: Anisocytosis Slight; Basophils # (A) 0.1 k/uL (0-0.2); Basophils % (A) 1 %; Eosinophils % (A) 1 %; HCT 33.5 % (34.0-46.0); HGB 10.2 gm/dL (11.4-16.0); Hypochromasia Marked; Lymphocytes # (A) 0.8 k/uL (1.0-4.8); Lymphocytes % (A) 11 %; MCH 22.6 pg (25.0-35.0); MCHC 30.4 g/dL (31.0-37.0); MCV 74.6 fL (80.0-100.0); Mean Platelet Volume 6.5; Microcytosis Slight; Monocytes # (A) 0.3 k/uL (0-1.0); Monocytes % (A) 4 %; Neutrophils % (A) 80 %; Platelet Count 128 k/uL (150-450); RBC 4.49 m/uL (3.80-5.40); RDW 16.5 % (11.5-15.5); WBC 7.5 k/uL (3.8-10.6)
[2020-07-16 16:57] LABS: ALT 40 U/L (4-34); AST 69 U/L (14-36); African American GFR (CKD) >90 (>60 ml/min/1.73 sqM); Albumin 2.8 g/dL (3.5-5.0); Alkaline Phosphatase 114 U/L (38-126); Anion Gap 8 mmol/L; Blood Urea Nitrogen 18 mg/dL (7-17); Calcium 7.9 mg/dL (8.4-10.2); Carbon Dioxide 23 mmol/L (22-30); Chloride 102 mmol/L (98-107); Glucose 182 mg/dL (74-99); LDH 1468 U/L (313-618); Non-African American GFR(CKD) 86 (>60 ml/min/1.73 sqM); Potassium 4.6 mmol/L (3.5-5.1); Sodium 133 mmol/L (137-145); Total Bilirubin 1.1 mg/dL (0.2-1.3); Total Protein 6.2 g/dL (6.3-8.2)
--- NOTE | 2020-07-16 16:58 | XR ---
EXAMINATION TYPE: XR chest 1V portable DATE OF EXAM: 07/16/2020 COMPARISON: 07/09/2020 HISTORY: Short of breath. Cough. TECHNIQUE: Single view FINDINGS: There is some mild interstitial infiltrates in the lung muñiz bilaterally. Heart is enlarg ed. There are chest leads. There is no definite pleural effusion. IMPRESSION: There is some mild pulmonary interstitial pneumonia that is increased compared to last ex am.
[2020-07-16 16:59] LABS: INR 1.1 (<1.2); Partial Thromboplastin Time 23.7 sec (22.0-30.0); Prothrombin Time 11.3 sec (9.0-12.0)
[2020-07-16 17:04] LABS: D-Dimer 1.21 mg/L FEU (<0.60)
[2020-07-16] MEDS: DEXAMETHASONE SOD PHOSPHATE 10 MG/ML 1 ML VIAL IV SCH (17:06)
[2020-07-16 17:12] LABS: C Reactive Protein 138.5 mg/L (<10.0)
[2020-07-16] MEDS ORDERED: NALOXONE 0.4 MG/ML 1 ML VIAL IV PRN (17:32)
[2020-07-16] MEDS ORDERED: DICLOFENAC SODIUM GEL 100 GM TUBE TOPICAL PRN (17:55)
--- NOTE | 2020-07-16 18:26 | CT ---
EXAMINATION TYPE: CT chest angio for PE DATE OF EXAM: 07/16/2020 COMPARISON: None HISTORY: Shortness of breath. CT DLP: 1713.3 mGycm Automated exposure control for dose reduction was used. CONTRAST: Performed with IV Contrast, patient injected with 100 mL of Isovue 370. There are 3-D post processed images. There is patchy groundglass coalescent interstitial infiltrate throughout the lungs. Heart is enlarge d. There is no pericardial effusion. There is suboptimal contrast density in the pulmonary arteries. I see no obvious filling defect. Thoracic aorta is intact without evidence of aneurysm or dissection. There is no pleural effusion. There is no mediastinal adenopathy. There are no hilar masses. The bony thorax is intact. IMPRESSION: Suboptimal exam. No evidence of any large pulmonary embolism. Cardiomegaly. Extensive groundglass pulmonary interstitial edema. This could relate to RDS. No pleura l fluid seen to suggest heart failure.
[2020-07-16] MEDS ORDERED: cefTRIAXone IN SWFI 1,000 MG/10 ML SYRINGE IVP STA (18:34)
[2020-07-16] MEDS ORDERED: AZITHROMYCIN 500 MG in SODIUM CHLORIDE 0.9% 250 ML IVPB STA (18:34)
[2020-07-16] MEDS: ALBUTEROL HFA INHALER INHALATION PRN (20:22)
[2020-07-16 22:52] LABS: Glucose,Whole Blood 268 mg/dL (75-99)
[2020-07-16] MEDS: FLECAINIDE 50 MG TAB PO SCH (23:19)
[2020-07-16] MEDS: PANTOPRAZOLE 40 MG TABLET PO SCH (23:19)
[2020-07-16] MEDS: ENOXAPARIN 40 MG/0.4 ML SYRINGE SQ SCH (23:19)
[2020-07-16] MEDS: Acetaminophen-Codeine 300-30mg TAB PO PRN (23:25)
[2020-07-17] MEDS ORDERED: ONDANSETRON 4 MG/2 ML VIAL IVP PRN (06:12)
--- NOTE | 2020-07-17 07:19 | P.HPIM ---
History of Present Illness H&P Date: 07/16/20 Chief Complaint: Acute hypoxic respiratory failure, Covid 19 pneumonitis, wo rsening dyspnea 74-year-old morbidly obese female one of my office patient with past medical history of A. fib with RVR, history of acute gastrointestinal bleed with anemia, history of type 2 diabetes, history of obstructive sleep apnea, mild reactive airway/COPD and mild diastolic congestive heart failure who has been seen in the office the last week for acute Covid, patient was diagnosed on the ended up going for monoclonal anti-body infusion on the . Patient called office with worsening symptoms was seen in virtual visit and was recommended to go to the hospital to be admitted. Patient has been having worsening dyspnea and shortness of breath along with severe hypoxia worsening persistent cough productive of phlegm along with mild twinges of blood. Patient was seen at the emergency department her pulse ox was in the 80 percentile with a few breathing treatment along with 3 L of O2 her pulse ox was increased to the low 90. Patient chest x-ray showed severe interstitial pneumonitis. Her d-dimer was elevated and ended up going for CTA showed extensive ground glass pulmonary interstitial edema could be related to RDS no pleural effusion found at the time. Patient was started on steroids along with updraft treatment O2 will consult pulmonary admit patient to the hospital. Review of Systems CONSTITUTIONAL: Well-developed no acute respiratory distress. EYES: No icterus sclerae, no conjunctivitis. EARS, NOSE, MOUTH, THROAT, and FACE: No sore throat, lymphadenopathy, carotid bruits or deformity. RESPIRATORY: Severe dyspnea and shortness of breath and cough. CARDIOVASCULAR: Positive PND orthopnea palpitation with no angina. GASTROINTESTINAL: No Abd pain, Nausea or vomiting, no Diarrhea or constipation, No GI Bleed, no distention or masses. GENITOURINARY: Negative for Hematuria or UTI, no kidney stones. INTEGUMENT/BREAST: Negative for any muscular injury with mild osteoarthritis. Chronic edema. HEMATOLOGIC/LYMPHATIC: Negative for bleed or purpura. MUSCULOSKELTAL: Negative for Myalgia or arthralgia. Significant arthralgia and myalgia. NEURLOGICAL: No LOC, Sz or syncope, blurred vision dizziness or abnormality.. BEHAVIORAL/PSYCH: Negative. ENDOCRINE: Negative. Past Medical History Past Medical History: Atrial Fibrillation, Heart Failure, Diabetes Mellitus, Osteoarthritis (OA) Additional Past Medical History / Comment(s): states SOB, back pain-receiving physical therapy., has Lap Band (does not think there is fluid in it), [place], See Cardiology H & P. History of Any Multi-Drug Resistant Organisms: None Reported Past Surgical History: Bariatric Surgery, Hysterectomy, Joint Replacement, Orthopedic Surgery Additional Past Surgical History / Comment(s): katie knee replacements,katie knee arthroscopies,katie ovaries removed,lap band placed x 2-"doesn't think there is fluid is present", cataracts. Past Anesthesia/Blood Transfusion Reactions: Previous Problems w/ Anesthesia, Family History of Problems w/ Anesthesia, Motion Sickness Additional Past Anesthesia/Blood Transfusion Reaction / Comment(s): states she was alert when I was getting put under and the tube going into my throat and I panicked, trouble waking up with general anesthesia. mother-ponv Past Psychological History: Depression Smoking Status: Never smoker Past Alcohol Use History: Occasional Past Drug Use History: None Reported - Past Family History Mother Additional Family Medical History / Comment(s): breast,bladder,lung Father Family Medical History: No Reported History Medications and Allergies Home Medications Medication Instructions Recorded Confirmed Type sitaGLIPtin [Januvia] 100 mg PO HS 10/18/18 07/16/20 History Flecainide [Tambocor] 50 mg PO Q12HR 10/20/19 07/16/20 History Metoprolol Tartrate 12.5 mg PO DAILY #90 tab 10/21/19 07/16/20 Rx Ascorbic Acid/Multivit-Min 1,000 mg PO DAILY 07/09/20 07/16/20 History [Emergen-C 1,000 mg Packet] Bumetanide [Bumex] 1 mg PO DAILY 07/09/20 07/16/20 History Cholecalciferol (Vitamin D3) 125 mcg PO DAILY 07/09/20 07/16/20 History [Vitamin D3 (5000 Iu)] Diclofenac Sodium [Voltaren 2 gm TOPICAL QID PRN 07/09/20 07/16/20 History Arthritis Pain 1% Gel] Insulin Glargine,Hum.rec.anlog 45 unit SQ DAILY 07/09/20 07/16/20 History [Lantus Solostar] Pantoprazole Sodium [Protonix] 40 mg PO BID 07/09/20 07/16/20 History Potassium Gluconate 99 mg PO DAILY 07/09/20 07/16/20 History Acetaminophen-Codeine 300-30mg 1 tab PO Q6H PRN 07/16/20 07/16/20 History [Tylenol w/codeine #3] Albuterol Inhaler [Ventolin Hfa 2 puff INHALATION RT-Q6H PRN 07/16/20 07/16/20 History Inhaler] Azithromycin [Zithromax] See Taper PO DAILY 07/16/20 07/16/20 History Allergies Allergy/AdvReac Type Severity Reaction Status Date / Time adhesive tape Allergy tears skin Verified 07/16/20 16:44 ciprofloxacin [From Cipro] Allergy Rash/Hives Verified 07/16/20 16:44 doxycycline Allergy Rash/Hives Verified 07/16/20 16:44 hydrochlorothiazide Allergy Unknown Verified 07/16/20 16:44 pioglitazone [From Actos] Allergy Swelling Verified 07/16/20 16:44 "HCL" AdvReac Cough Uncoded 07/09/20 13:34 Physical Exam Vitals: Vital Signs Temp Pulse Resp BP Pulse Ox 07/16/20 19:30 98.3 F 70 20 150/61 100 07/16/20 19:00 67 20 143/64 100 07/16/20 18:18 98.5 F 70 28 H 144/70 97 07/16/20 17:00 97 07/16/20 16:08 30 H 07/16/20 15:38 98.7 F 73 23 146/66 83 L Intake and Output 07/16/20 07/16/20 07/16/20 06:59 14:59 22:59 Intake Total 100 Balance 100 Intake: Amount of Fluid Infused ( 100 ml) Other: Weight 140.614 kg General Appearance: Alert, cooperative, morbidly obese in mild respiratory distress. Neck HEENT: Supple, no lymphadenopathy, no thyroid enlargement, no carotid bruits. Lungs: Decreased breath some bilateral especially the right lower base with fine rhonchi crackles and mild inspiratory expiratory wheezes. Chest Wall: Decrease expansion with deep inspiration no tenderness and no deformity was found on exam, no costochondral pain or discomfort. Heart: Regular rate and rhythm, S1, S2 positive systolic murmur with S3. Back: Symmetric, no curvature, ROM normal, no CVA tenderness. Abdomen: Soft, non-tender, bowel sounds active all four quadrants, no masses, no organomegaly. Extremities: 1+ edema and decreased pulses bilaterally Pulses: 1+ and symmetric. Skin: Skin color, texture, tugor normal, no rashes or lesions. Neurologic: Alert oriented x3 cranial nerves II through XII intact, no motor deficit, no abnormal balance or gait. Results CBC & Chem 7: 07/16/20 16:42 07/16/20 16:42 Labs: Abnormal Lab Results - Last 24 Hours (Table) 07/16/20 07/16/20 07/16/20 Range/Units 16:42 16:42 16:42 Hgb 10.2 L (11.4-16.0) gm/dL Hct 33.5 L (34.0-46.0) % MCV 74.6 L (80.0-100.0) fL MCH 22.6 L (25.0-35.0) pg MCHC 30.4 L (31.0-37.0) g/dL RDW 16.5 H (11.5-15.5) % Plt Count 128 L (150-450) k/uL Lymphocytes # 0.8 L (1.0-4.8) k/uL D-Dimer 1.21 H (<0.60) mg/L FEU Sodium 133 L (137-145) mmol/L BUN 18 H (7-17) mg/dL Glucose 182 H (74-99) mg/dL Plasma Lactic Acid Ubaldo (0.7-2.0) mmol/L Calcium 7.9 L (8.4-10.2) mg/dL AST 69 H (14-36) U/L ALT 40 H (4-34) U/L Lactate Dehydrogenase 1468 H (313-618) U/L C-Reactive Protein 138.5 H (<10.0) mg/L Total Protein 6.2 L (6.3-8.2) g/dL Albumin 2.8 L (3.5-5.0) g/dL Coronavirus (PCR) (Not Detectd) 07/16/20 07/16/20 Range/Units 16:42 16:45 Hgb (11.4-16.0) gm/dL Hct (34.0-46.0) % MCV (80.0-100.0) fL MCH (25.0-35.0) pg MCHC (31.0-37.0) g/dL RDW (11.5-15.5) % Plt Count (150-450) k/uL Lymphocytes # (1.0-4.8) k/uL D-Dimer (<0.60) mg/L FEU Sodium (137-145) mmol/L BUN (7-17) mg/dL Glucose (74-99) mg/dL Plasma Lactic Acid Ubaldo 2.6 H* (0.7-2.0) mmol/L Calcium (8.4-10.2) mg/dL AST (14-36) U/L ALT (4-34) U/L Lactate Dehydrogenase (313-618) U/L C-Reactive Protein (<10.0) mg/L Total Protein (6.3-8.2) g/dL Albumin (3.5-5.0) g/dL Coronavirus (PCR) Detected A (Not Detectd) Thrombosis Risk Factor Assmnt - Choose All That Apply Each Factor Represents 1 point: Heart failure (<1month), Obesity (BMI >25), Swollen legs (current) Each Risk Factor Represents 2 Points: Age 61-74 years Thrombosis Risk Factor Assessment Total Risk Factor Score: 5 Thrombosis Risk Factor Assessment Level: High Risk Assessment and Plan Assessment: 1 acute respiratory distress secondary to acute Covid pneumonitis with worsening symptoms: Patient was admitted to the hospital continue O2 continue supportive care if needed BiPAP will be done consult pulmonary and continue updraft treatment along with steroid at this point. 2 acute Covid pneumonitis with worsening symptoms patient will need to be started on antiviral medication, continue steroid and updraft treatment continue supportive care at this point. 3 worsening COPD: Patient will continue steroid along with updraft treatment and add Pulmicort at this point. 4 history of A. fib with RVR: Patient is not on anticoagulation because of acute GI bleed shortly after started on it 6 months ago will continue smaller dose of metoprolol and still on flecainide 50 mg twice a day as she is doing as an outpatient if pulse rate become faster might benefit from calcium channel william. 5 type 2 diabetes: Continue patient on Accu-Chek with sliding scales coverage continue Lantus at 45 units daily and still on Januvia. 6 chronic diastolic congestive heart failure: Patient will continue on diuretics continue metoprolol as well. 7 peptic ulcer disease and GI prophylaxis: Continue patient on pantoprazole 40 mg daily. 8 chronic anemia: Remain on iron supplement and multivitamins no need for transfusion. 9 mild hyponatremia: Most likely SIADH from pneumonia will continue mild gentle hydration repeat chemistry in the next 24 hours. 10 DVT prophylaxis: Patient will be on Lovenox 40 mg subcutaneous daily. 11 GI prophylaxis: Will be on pantoprazole. CODE STATUS: Full code. Admit patient to the inpatient service for more than 2 night stay.
[2020-07-17 07:24] LABS: Glucose,Whole Blood 259 mg/dL (75-99)
[2020-07-17] MEDS: ALBUTEROL HFA INHALER INHALATION PRN ×3 (08:15→20:08)
[2020-07-17] MEDS: NON FORMULARY DRUG (Potassium Gluconate [Potassium Gluconate] 99 MG Tablet.Er) PO SCH (08:32)
[2020-07-17] MEDS: ASCORBIC ACID 500 MG TAB PO SCH (08:40)
[2020-07-17] MEDS: FLECAINIDE 50 MG TAB PO SCH ×2 (08:40→21:36)
[2020-07-17] MEDS: METOPROLOL TARTRATE 12.5 MG TAB PO SCH (08:40)
[2020-07-17] MEDS: BUMETANIDE 1 MG TAB PO SCH (08:41)
[2020-07-17] MEDS: CHOLECALCIFEROL 25 MCG (1000 IU) TABLET PO SCH (08:41)
[2020-07-17] MEDS: INSULIN ASPART (NovoLOG) 100 UNIT/ML VIAL SQ SCH ×4 (08:41→21:39)
[2020-07-17] MEDS: PANTOPRAZOLE 40 MG TABLET PO SCH ×2 (08:41→21:36)
[2020-07-17] MEDS: ENOXAPARIN 40 MG/0.4 ML SYRINGE SQ SCH (08:42)
[2020-07-17] MEDS: INSULIN DETEMIR (LEVEMIR) 100 UNIT/ML SYR SQ SCH (08:42)
[2020-07-17] MEDS: DEXAMETHASONE SOD PHOSPHATE 10 MG/ML 1 ML VIAL IV SCH (08:42)
[2020-07-17 09:24] LABS: HCT 34.7 % (37.2-46.3); HGB 10.1 g/dL (12.0-15.0); MCH 21.7 pg (27.0-32.0); MCHC 29.1 g/dL (32.0-37.0); MCV 74.5 fL (80.0-97.0); Mean Platelet Volume 10.2 fL (9.5-12.2); Platelet Count 137 X 10*3/uL (140-440); RBC 4.66 X 10*6/uL (4.10-5.20); RDW 17.9 % (11.5-14.5); WBC 8.09 X 10*3/uL (4.50-10.00)
[2020-07-17 09:33] LABS: Ferritin 624.2 ng/mL (10.0-291.0)
[2020-07-17 09:54] LABS: African American GFR (CKD) 85.4 (60.0-200.0); Anion Gap 7.8 mmol/L (4.00-12.00); BUN/Creat Ratio 21.25 Ratio (12.00-20.00); Calcium 8.1 mg/dL (8.7-10.3); Carbon Dioxide 25.2 mmol/L (21.6-31.8); Non-African American GFR(CKD) 73.7 (60.0-200.0); Potassium 4.9 mmol/L (3.5-5.5)
--- NOTE | 2020-07-17 11:11 | P.PN ---
Subjective Progress Note Date: 07/17/20 HISTORY OF PRESENT ILLNESS 74-year-old morbidly obese female one of my office patient with past medical history of A. fib with RVR, history of acute gastrointestinal bleed with anemia, history of type 2 diabetes, history of obstructive sleep apnea, mild reactive airway/COPD and mild diastolic congestive heart failure who has been seen in the office the last week for acute Covid, patient was diagnosed on the ended up going for monoclonal anti-body infusion on the . Patient called office with worsening symptoms was seen in virtual visit and was recommended to go to the hospital to be admitted. Patient has been having worsening dyspnea and shortness of breath along with severe hypoxia worsening persistent cough productive of phlegm along with mild twinges of blood. Patient was seen at the emergency department her pulse ox was in the 80 percentile with a few breathing treatment along with 3 L of O2 her pulse ox was increased to the low 90. Patient chest x-ray showed severe interstitial pneumonitis. Her d-dimer was elevated and ended up going for CTA showed extensive ground glass pulmonary interstitial edema could be related to RDS no pleural effusion found at the time. Patient was started on steroids along with updraft treatment O2 will consult pulmonary admit patient to the hospital. 2: The patient states that she is feeling much better today. She states that she did not sleep well last night. She is found sitting up in recliner and appears to be comfortable and in no acute distress. She has been afebrile, heart rate 72, blood pressure 160/83, pulse ox 92-98% on 5 L nasal cannula. Consult in place from pulmonary medicine. Blood sugars are running in the 200s. WBC 8, hemoglobin 10.1. Repeat lactic acid 1.7. IV fluids will be disco ntinued. Patient is on her home dose of Bumex. REVIEW OF SYSTEMS CONSTITUTIONAL: Well-developed no acute respiratory distress. Denies fevers. EYES: No icterus sclerae, no conjunctivitis. EARS, NOSE, MOUTH, THROAT, and FACE: No sore throat, lymphadenopathy, carotid bruits or deformity. RESPIRATORY: Severe dyspnea and shortness of breath and cough. CARDIOVASCULAR: Positive PND orthopnea palpitation with no angina. GASTROINTESTINAL: No Abd pain, Nausea or vomiting, no Diarrhea or constipation, No GI Bleed, no distention or masses. GENITOURINARY: Negative for Hematuria or UTI, no kidney stones. INTEGUMENT/BREAST: Negative for any muscular injury with mild osteoarthritis. Chronic edema. HEMATOLOGIC/LYMPHATIC: Negative for bleed or purpura. MUSCULOSKELTAL: Negative for Myalgia or arthralgia. Significant arthralgia and myalgia. NEURLOGICAL: No LOC, Sz or syncope, blurred vision dizziness or abnormality.. BEHAVIORAL/PSYCH: Negative. ENDOCRINE: Negative. PHYSICAL EXAMINATION General Appearance: Alert, cooperative, morbidly obese in no respiratory distress. Neck HEENT: Supple, no lymphadenopathy, no thyroid enlargement, no carotid bruits. Lungs: Decreased breath some bilateral especially the right lower base with fine rhonchi crackles and mild inspiratory expiratory wheezes. Chest Wall: Decrease expansion with deep inspiration no tenderness and no deformity was found on exam, no costochondral pain or discomfort. Heart: Regular rate and rhythm, S1, S2 positive systolic murmur with S3. Back: Symmetric, no curvature, ROM normal, no CVA tenderness. Abdomen: Soft, non-tender, bowel sounds active all four quadrants, no masses, no organomegaly. Extremities: 1+ edema and decreased pulses bilaterally Pulses: 1+ and symmetric. Skin: Skin color, texture, tugor normal, no rashes or lesions. Neurologic: Alert oriented x3 cranial nerves II through XII intact, no motor deficit, no abnormal balance or gait. ASSESSMENT AND PLAN 1 acute hypoxic respiratory failure secondary to acute Covid pneumonitis with worsening symptoms. Consult with pulmonary medicine. Continue Decadron 6 mg IV daily, vitamin C, vitamin D Andrei think, oxygen support.: 2 acute Covid pneumonitis with worsening symptoms. Continue as in #1. 3 worsening COPD: Patient will continue steroid along with updraft treatment and add Pulmicort at this point. 4. Paroxysmal atrial fibrillation, unable to tolerate anticoagulation secondary to acute GI bleed, continue metoprolol 12.5 mg twice daily and flecainide 50 mg twice a day. 5 type 2 diabetes, uncontrolled with hyperglycemia secondary to steroids. Continue Accu-Chek with sliding scales coverage continue Lantus at 45 units daily and still on Januvia. 6 chronic diastolic heart failure. Continue Bumex 1 mg daily, Lopressor. 7 peptic ulcer disease and GI prophylaxis: Continue patient on pantoprazole 40 mg daily. 8 chronic anemia: Remain on iron supplement and multivitamins no need for transfusion. 9 mild hyponatremia: Most likely SIADH from pneumonia will continue mild gentle hydration repeat chemistry in the next 24 hours. 10 DVT prophylaxis: Patient will be on Lovenox 40 mg subcutaneous daily. 11 GI prophylaxis: Will be on pantoprazole. CODE STATUS: Full code. DISCHARGE PLAN Most likely home with home care. Patient may require home oxygen. Impression and plan of care have been directed as dictated by the signing physician. Leeann Rose nurse practitioner acting as scribe for signing physician. Objective - Vital Signs Vital signs: Vital Signs Temp 98 F 07/17/20 06:00 Pulse 72 07/17/20 06:00 Resp 20 07/17/20 06:00 BP 168/83 07/17/20 06:00 Pulse Ox 92 L 07/17/20 06:00 Intake & Output 07/16/20 07/17/20 07/17/20 18:59 06:59 18:59 Intake Total 400 Balance 400 Weight 140.614 kg 140.614 kg Intake: Amount of Fluid Infused ( 100 ml) Oral 300 Other: Voiding Method Bedside Commode - Labs CBC & Chem 7: 07/17/20 05:48 07/17/20 05:48 Labs: Abnormal Lab Results - Last 24 Hours (Table) 07/16/20 07/16/20 07/16/20 Range/Units 16:42 16:42 16:42 Hgb 10.2 L (11.4-16.0) gm/dL Hct 33.5 L (34.0-46.0) % MCV 74.6 L (80.0-100.0) fL MCH 22.6 L (25.0-35.0) pg MCHC 30.4 L (31.0-37.0) g/dL RDW 16.5 H (11.5-15.5) % Plt Count 128 L (150-450) k/uL Lymphocytes # 0.8 L (1.0-4.8) k/uL D-Dimer 1.21 H (<0.60) mg/L FEU Sodium 133 L (137-145) mmol/L BUN 18 H (7-17) mg/dL Glucose 182 H (74-99) mg/dL POC Glucose (mg/dL) (75-99) mg/dL Plasma Lactic Acid Ubaldo (0.7-2.0) mmol/L Calcium 7.9 L (8.4-10.2) mg/dL AST 69 H (14-36) U/L ALT 40 H (4-34) U/L Lactate Dehydrogenase 1468 H (313-618) U/L C-Reactive Protein 138.5 H (<10.0) mg/L Total Protein 6.2 L (6.3-8.2) g/dL Albumin 2.8 L (3.5-5.0) g/dL Procalcitonin (0.02-0.09) ng/mL Coronavirus (PCR) (Not Detectd) 07/16/20 07/16/20 07/16/20 Range/Units 16:42 16:42 16:45 Hgb (11.4-16.0) gm/dL Hct (34.0-46.0) % MCV (80.0-100.0) fL MCH (25.0-35.0) pg MCHC (31.0-37.0) g/dL RDW (11.5-15.5) % Plt Count (150-450) k/uL Lymphocytes # (1.0-4.8) k/uL D-Dimer (<0.60) mg/L FEU Sodium (137-145) mmol/L BUN (7-17) mg/dL Glucose (74-99) mg/dL POC Glucose (mg/dL) (75-99) mg/dL Plasma Lactic Acid Ubaldo 2.6 H* (0.7-2.0) mmol/L Calcium (8.4-10.2) mg/dL AST (14-36) U/L ALT (4-34) U/L Lactate Dehydrogenase (313-618) U/L C-Reactive Protein (<10.0) mg/L Total Protein (6.3-8.2) g/dL Albumin (3.5-5.0) g/dL Procalcitonin 0.20 H (0.02-0.09) ng/mL Coronavirus (PCR) Detected A (Not Detectd) 07/16/20 07/17/20 Range/Units 22:48 07:19 Hgb (11.4-16.0) gm/dL Hct (34.0-46.0) % MCV (80.0-100.0) fL MCH (25.0-35.0) pg MCHC (31.0-37.0) g/dL RDW (11.5-15.5) % Plt Count (150-450) k/uL Lymphocytes # (1.0-4.8) k/uL D-Dimer (<0.60) mg/L FEU Sodium (137-145) mmol/L BUN (7-17) mg/dL Glucose (74-99) mg/dL POC Glucose (mg/dL) 268 H 259 H (75-99) mg/dL Plasma Lactic Acid Ubaldo (0.7-2.0) mmol/L Calcium (8.4-10.2) mg/dL AST (14-36) U/L ALT (4-34) U/L Lactate Dehydrogenase (313-618) U/L C-Reactive Protein (<10.0) mg/L Total Protein (6.3-8.2) g/dL Albumin (3.5-5.0) g/dL Procalcitonin (0.02-0.09) ng/mL Coronavirus (PCR) (Not Detectd)
[2020-07-17 11:27] LABS: Glucose,Whole Blood 318 mg/dL (75-99)
[2020-07-17] MEDS: COLCHICINE 0.6 MG EACH PO SCH ×2 (12:09→21:36)
[2020-07-17] MEDS: ZINC SULFATE 220 MG CAP PO SCH (12:09)
[2020-07-17 12:14] LABS: Basophils # (A) 0.01 X 10*3/uL (0.00-0.10); Basophils % (A) 0.1 %; Eosinophils # (A) 0 X 10*3/uL (0.04-0.35); Eosinophils % (A) 0 %; Lymphocytes # (A) 0.83 X 10*3/uL (0.90-5.00); Lymphocytes % (A) 10.3 %; Monocytes # (A) 0.31 X 10*3/uL (0.20-1.00); Monocytes % (A) 3.8 %; Neutrophils # (A) 6.89 X 10*3/uL (1.80-7.70); Neutrophils % (A) 85.2 %
[2020-07-17 12:15] LABS: Anisocytosis (M) 2+; Hypochromasia (M) 2+
[2020-07-17 16:47] LABS: Glucose,Whole Blood 184 mg/dL (75-99)
--- NOTE | 2020-07-17 17:19 | P.CNPUL ---
History of Present Illness Consult date: 07/17/20 Requesting physician: Ld Betancur Reason for consult: dyspnea, cough, hypoxemia, pneumonia, abnormal CXR/CT Chief complaint: Shortness of breath on exertion. History of present illness: 74-year-old female who was seen in the emergency department on 07/16/2020, at 1535. The patient presented with complaints of shortness of breath. The patient has a history of atrial fibrillation, obesity, congestive heart failure, and diabetes. She apparently was diagnosed with COVID 19 infection on July 09. Prior to being tested positive, the patient had 2 weeks of what she describes as a head cold. She started taking vitamins, and Decadron. More recently, she's been getting progressively worse as it relates to her shortness of breath, which now occurs on any activity. She does have some nausea, but denies any vomiting or diarrhea. She denies any chest pain. She denies any genitourinary complaints and lower extremity edema. Apparently her family doctor recommended that she come into the emergency room to be evaluated. A chest x-ray reveals some mild pulmonary interstitial pneumonia, and the CT angiogram revealed no evidence of any central or large pulmonary emboli, but did show extensive groundglass pulmonary interstitial infiltrates, consistent with her diagnosis of COVID19 pneumonia. Unfortunately, she is beyond the window for remdesivir. Currently, she is on 5 L nasal cannula, and her saturations are 99%. Her respiratory rate is 20, and her temperature is 97.6F. Blood pressure is good and heart rate is 71 bpm. Her current white count is 8.09, hemoglobin 10.1, hematocrit 34.7, and platelet count 137,000. Sodium is 135, potassium 4.9, chlorides 102, CO2 25, anion gap 8, BUN 17, and creatinine 0.8. D-dimer is 1.21, ferritin is 624, LDH is 1468, and C-reactive protein is 139. N-terminal proBNP was 1970. Pro-calcitonin level was 0.20. Review of Systems REVIEW OF SYSTEMS: CONSTITUTIONAL: Weakness. NEUROLOGIC: [ Negative.] HEENT: [ Negative.] CARDIAC: [Negative.] PULMONARY: Shortness of breath, progressive, and nonproductive cough. GI: Nausea, without emesis or diarrhea. : [Negative.] RHEUMATOLOGIC: [ Negative.] IMMUNOLOGIC: [ Negative.] ENDOCRINE: [Negative. ] DERMATOLOGIC: [Negative.] Past Medical History Past Medical History: Atrial Fibrillation, Heart Failure, Diabetes Mellitus, Osteoarthritis (OA) Additional Past Medical History / Comment(s): states SOB, back pain-receiving physical therapy., has Lap Band (does not think there is fluid in it), [place], See Cardiology [facility]. History of Any Multi-Drug Resistant Organisms: None Reported Past Surgical History: Bariatric Surgery, Hysterectomy, Joint Replacement, Orthopedic Surgery Additional Past Surgical History / Comment(s): katie knee replacements,katie knee arthroscopies,katie ovaries removed,lap band placed x 2-"doesn't think there is fluid is present", cataracts. Past Anesthesia/Blood Transfusion Reactions: Previous Problems w/ Anesthesia, Family History of Problems w/ Anesthesia, Motion Sickness Additional Past Anesthesia/Blood Transfusion Reaction / Comment(s): states she was alert when I was getting put under and the tube going into my throat and I panicked, trouble waking up with general anesthesia. mother-ponv Past Psychological History: Depression Smoking Status: Never smoker Past Alcohol Use History: Occasional Past Drug Use History: None Reported - Past Family History Mother Additional Family Medical History / Comment(s): breast,bladder,lung Father Family Medical History: No Reported History Medications and Allergies Home Medications Medication Instructions Recorded Confirmed Type sitaGLIPtin [Januvia] 100 mg PO HS 10/18/18 07/16/20 History Flecainide [Tambocor] 50 mg PO Q12HR 10/20/19 07/16/20 History Metoprolol Tartrate 12.5 mg PO DAILY #90 tab 10/21/19 07/16/20 Rx Ascorbic Acid/Multivit-Min 1,000 mg PO DAILY 07/09/20 07/16/20 History [Emergen-C 1,000 mg Packet] Bumetanide [Bumex] 1 mg PO DAILY 07/09/20 07/16/20 History Cholecalciferol (Vitamin D3) 125 mcg PO DAILY 07/09/20 07/16/20 History [Vitamin D3 (5000 Iu)] Diclofenac Sodium [Voltaren 2 gm TOPICAL QID PRN 07/09/20 07/16/20 History Arthritis Pain 1% Gel] Insulin Glargine,Hum.rec.anlog 45 unit SQ DAILY 07/09/20 07/16/20 History [Lantus Solostar] Pantoprazole Sodium [Protonix] 40 mg PO BID 07/09/20 07/16/20 History Potassium Gluconate 99 mg PO DAILY 07/09/20 07/16/20 History Acetaminophen-Codeine 300-30mg 1 tab PO Q6H PRN 07/16/20 07/16/20 History [Tylenol w/codeine #3] Albuterol Inhaler [Ventolin Hfa 2 puff INHALATION RT-Q6H PRN 07/16/20 07/16/20 History Inhaler] Azithromycin [Zithromax] See Taper PO DAILY 07/16/20 07/16/20 History Allergies Allergy/AdvReac Type Severity Reaction Status Date / Time adhesive tape Allergy tears skin Verified 07/16/20 16:44 ciprofloxacin [From Cipro] Allergy Rash/Hives Verified 07/16/20 16:44 doxycycline Allergy Rash/Hives Verified 07/16/20 16:44 hydrochlorothiazide Allergy Unknown Verified 07/16/20 16:44 pioglitazone [From Actos] Allergy Swelling Verified 07/16/20 16:44 "HCL" AdvReac Cough Uncoded 07/09/20 13:34 Physical Exam Osteopathic Statement: *. No significant issues noted on an osteopathic structural exam other than those noted in the History and Physical/Consult. Vitals: Vital Signs Temp Pulse Pulse Resp BP BP BP 07/17/20 14:00 97.6 F 71 20 162/72 07/17/20 10:00 97.6 F 73 20 163/95 07/17/20 06:00 98 F 72 20 168/83 07/16/20 21:15 98.4 F 74 22 182/77 07/16/20 20:00 74 22 07/16/20 19:30 98.3 F 70 20 150/61 07/16/20 19:00 67 20 143/64 07/16/20 18:18 98.5 F 70 28 H 144/70 Pulse Ox 07/17/20 14:00 93 L 07/17/20 10:00 99 07/17/20 06:00 92 L 07/16/20 21:15 98 07/16/20 20:00 07/16/20 19:30 100 07/16/20 19:00 100 07/16/20 18:18 97 Intake and Output 07/17/20 07/17/20 07/17/20 06:59 14:59 22:59 Intake Total 100 Balance 100 Intake: Oral 100 Other: # Voids 2 No acute distress, oriented 3. Nasal O2 in place at 5 L/m. No audible wheezing, or use of accessory muscles. HEENT examination is grossly unremarkable. Mucous membranes are moist. No oral lesions. Neck supple. Full range of motion. No adenopathy thyromegaly or neck vein distention. Cardiovascular examination reveals regular rhythm rate. S1-S2 normal. No S3 or S4. No discernible murmur noted. Heart sounds are distant heart rate is 71 bpm. Lungs reveal bilateral rhonchi and a few scattered crackles. There are no wheezes. Breath sounds equal bilaterally. Abdomen soft bowel sounds are heard. No masses or tenderness. Extremities are intact. No cyanosis clubbing or edema. Skin is without rash or lesion. Neurologic examination is brief but nonfocal. Results - Laboratory Findings CBC and BMP: 07/17/20 05:48 07/17/20 05:48 PT/INR, D-dimer PT 11.3 sec (9.0-12.0) 07/16/20 16:42 INR 1.1 (<1.2) 07/16/20 16:42 D-Dimer 1.21 mg/L FEU (<0.60) H 07/16/20 16:42 Abnormal lab findings: Abnormal Labs 07/16/20 07/16/20 07/16/20 16:42 16:42 16:42 Hgb 10.2 L Hct 33.5 L MCV 74.6 L MCH 22.6 L MCHC 30.4 L RDW 16.5 H Plt Count 128 L Plt Count Comment Immature Gran # Lymphocytes # 0.8 L Eosinophils # D-Dimer 1.21 H Sodium 133 L BUN 18 H BUN/Creatinine Ratio Glucose 182 H POC Glucose (mg/dL) Plasma Lactic Acid Ubaldo Calcium 7.9 L Ferritin 624.2 H AST 69 H ALT 40 H Lactate Dehydrogenase 1468 H C-Reactive Protein 138.5 H Total Protein 6.2 L Albumin 2.8 L Procalcitonin Coronavirus (PCR) 07/16/20 07/16/20 07/16/20 16:42 16:42 16:45 Hgb Hct MCV MCH MCHC RDW Plt Count Plt Count Comment Immature Gran # Lymphocytes # Eosinophils # D-Dimer Sodium BUN BUN/Creatinine Ratio Glucose POC Glucose (mg/dL) Plasma Lactic Acid Ubaldo 2.6 H* Calcium Ferritin AST ALT Lactate Dehydrogenase C-Reactive Protein Total Protein Albumin Procalcitonin 0.20 H Coronavirus (PCR) Detected A 07/16/20 07/17/20 07/17/20 22:48 05:48 05:48 Hgb 10.1 L Hct 34.7 L MCV 74.5 L MCH 21.7 L MCHC 29.1 L RDW 17.9 H Plt Count 137 L Plt Count Comment A Immature Gran # 0.05 H Lymphocytes # 0.83 L Eosinophils # 0 L D-Dimer Sodium BUN BUN/Creatinine Ratio 21.25 H Glucose 282 H POC Glucose (mg/dL) 268 H Plasma Lactic Acid Ubaldo Calcium 8.1 L Ferritin AST ALT Lactate Dehydrogenase C-Reactive Protein Total Protein Albumin Procalcitonin Coronavirus (PCR) 07/17/20 07/17/20 07/17/20 07:19 11:25 16:43 Hgb Hct MCV MCH MCHC RDW Plt Count Plt Count Comment Immature Gran # Lymphocytes # Eosinophils # D-Dimer Sodium BUN BUN/Creatinine Ratio Glucose POC Glucose (mg/dL) 259 H 318 H 184 H Plasma Lactic Acid Bualdo Calcium Ferritin AST ALT Lactate Dehydrogenase C-Reactive Protein Total Protein Albumin Procalcitonin Coronavirus (PCR) - Diagnostic Findings Chest x-ray: image reviewed CT scan - chest: image reviewed Assessment and Plan Assessment: Acute hypoxemic respiratory failure secondary to COVID 19 pneumonia. History of diabetes mellitus. History of atrial fibrillation. History of congestive heart failure. History of osteoarthritis. History of chronic back pain. Status post lap band surgery for obesity. History of deafness. Plan: Plan dated 07/17/2020. The patient should be treated with Decadron, vitamin C, vitamin D3, and zinc. In addition, the patient can be given an albuterol inhaler. The patient is beyond the window for remdesivir. The [facility] system has put a moratorium on the administration of tocilizumab. We did add colchicine to the regimen, and the patient could get convalescent plasma. We will continue to follow the patient carefully. Additional recommendations and suggestions are forthcoming. Prognosis is guarded. Time with Patient: Greater than 30
[2020-07-17 20:59] LABS: Glucose,Whole Blood 114 mg/dL (75-99)
[2020-07-17] MEDS: LINAGLIPTIN 5 MG TABLET PO SCH (21:36)
[2020-07-18 07:08] LABS: Glucose,Whole Blood 75 mg/dL (75-99)
[2020-07-18] MEDS: INSULIN ASPART (NovoLOG) 100 UNIT/ML VIAL SQ SCH ×4 (07:12→22:07)
[2020-07-18] MEDS: INSULIN DETEMIR (LEVEMIR) 100 UNIT/ML SYR SQ SCH (07:12)
[2020-07-18] MEDS: ALBUTEROL HFA INHALER INHALATION PRN ×3 (07:43→20:55)
[2020-07-18] MEDS: ZINC SULFATE 220 MG CAP PO SCH (08:12)
[2020-07-18] MEDS: COLCHICINE 0.6 MG EACH PO SCH ×2 (08:12→22:06)
[2020-07-18] MEDS: ENOXAPARIN 40 MG/0.4 ML SYRINGE SQ SCH ×2 (08:12→22:06)
[2020-07-18] MEDS: DEXAMETHASONE SOD PHOSPHATE 10 MG/ML 1 ML VIAL IV SCH (08:13)
[2020-07-18] MEDS: FLECAINIDE 50 MG TAB PO SCH ×2 (08:13→22:06)
[2020-07-18] MEDS: PANTOPRAZOLE 40 MG TABLET PO SCH ×2 (08:13→22:06)
[2020-07-18] MEDS: METOPROLOL TARTRATE 12.5 MG TAB PO SCH (08:13)
[2020-07-18] MEDS: BUMETANIDE 1 MG TAB PO SCH (08:13)
[2020-07-18] MEDS: CHOLECALCIFEROL 25 MCG (1000 IU) TABLET PO SCH (08:13)
[2020-07-18] MEDS: ASCORBIC ACID 500 MG TAB PO SCH (08:13)
[2020-07-18] MEDS: NON FORMULARY DRUG (Potassium Gluconate [Potassium Gluconate] 99 MG Tablet.Er) PO SCH (08:14)
[2020-07-18 09:12] LABS: HCT 37.3 % (37.2-46.3); HGB 10.4 g/dL (12.0-15.0); MCH 21.3 pg (27.0-32.0); MCHC 27.9 g/dL (32.0-37.0); MCV 76.3 fL (80.0-97.0); Mean Platelet Volume 10.3 fL (9.5-12.2); Platelet Count 172 X 10*3/uL (140-440); RBC 4.89 X 10*6/uL (4.10-5.20); RDW 18.3 % (11.5-14.5); WBC 18.53 X 10*3/uL (4.50-10.00)
[2020-07-18 10:24] LABS: Albumin 3.5 g/dL (3.80-4.90); Albumin/Globulin Ratio 1.09 (1.60-3.17); Anion Gap 13.9 mmol/L (4.00-12.00); BUN/Creat Ratio 17.78 Ratio (12.00-20.00); C Reactive Protein 6.6 mg/dL (0.0-0.8); Calcium 8.4 mg/dL (8.7-10.3); Carbon Dioxide 22.1 mmol/L (21.6-31.8); Globulin 3.2 g/dL (1.6-3.3); Non-African American GFR(CKD) 63.9 (60.0-200.0); Potassium 4.6 mmol/L (3.5-5.5); Total Bilirubin 0.9 mg/dL (0.3-1.2); Total Protein 6.7 g/dL (6.2-8.2)
--- NOTE | 2020-07-18 11:36 | P.PN ---
Subjective Progress Note Date: 07/18/20 HISTORY OF PRESENT ILLNESS 74-year-old morbidly obese female one of my office patient with past medical history of A. fib with RVR, history of acute gastrointestinal bleed with anemia, history of type 2 diabetes, history of obstructive sleep apnea, mild reactive airway/COPD and mild diastolic congestive heart failure who has been seen in the office the last week for acute Covid, patient was diagnosed on the ended up going for monoclonal anti-body infusion on the . Patient called office with worsening symptoms was seen in virtual visit and was recommended to go to the hospital to be admitted. Patient has been having worsening dyspnea and shortness of breath along with severe hypoxia worsening persistent cough productive of phlegm along with mild twinges of blood. Patient was seen at the emergency department her pulse ox was in the 80 percentile with a few breathing treatment along with 3 L of O2 her pulse ox was increased to the low 90. Patient chest x-ray showed severe interstitial pneumonitis. Her d-dimer was elevated and ended up going for CTA showed extensive ground glass pulmonary interstitial edema could be related to RDS no pleural effusion found at the time. Patient was started on steroids along with updraft treatment O2 will consult pulmonary admit patient to the hospital. 2/2: The patient states that she is feeling much better today. She states that she did not sleep well last night. She is found sitting up in recliner and appears to be comfortable and in no acute distress. She has been afebrile, heart rate 72, blood pressure 160/83, pulse ox 92-98% on 5 L nasal cannula. Consult in place from pulmonary medicine. Blood sugars are running in the 200s. WBC 8, hemoglobin 10.1. Repeat lactic acid 1.7. IV fluids will be disco ntinued. Patient is on her home dose of Bumex. 2/3: Patient has been afebrile, heart rate 79, blood pressure 162/69, pulse ox 93% on 10 L nasal cannula. Patient complains of shortness of breath and feeling cold. She continues to cough. WBC is 18.5, hemoglobin 10.4, electrolytes normal. Creatinine 0.9. Total bilirubin 0.9, AST 88, ALT 44, alkaline phosphatase 143, LDH 943, C reactive protein 6.6. Overall, inflammatory markers are improving. Patient has been seen by pulmonary medicine and is outside of the window for Remdesivir treatment. Colchicine was added REVIEW OF SYSTEMS CONSTITUTIONAL: Well-developed no acute respiratory distress. Denies fevers. Denies chills. EYES: No icterus sclerae, no conjunctivitis. EARS, NOSE, MOUTH, THROAT, and FACE: No sore throat, lymphadenopathy, carotid bruits or deformity. RESPIRATORY: Moderate dyspnea and shortness of breath and cough. Dyspnea with exertion. CARDIOVASCULAR: Positive PND orthopnea palpitation with no angina. GASTROINTESTINAL: No Abd pain, Nausea or vomiting, no Diarrhea or constipation, No GI Bleed, no distention or masses. GENITOURINARY: Negative for Hematuria or UTI, no kidney stones. INTEGUMENT/BREAST: Negative for any muscular injury with mild osteoarthritis. Chronic edema. HEMATOLOGIC/LYMPHATIC: Negative for bleed or purpura. MUSCULOSKELTAL: Negative for Myalgia or arthralgia. Significant arthralgia and myalgia. NEURLOGICAL: No LOC, Sz or syncope, blurred vision dizziness or abnormality.. BEHAVIORAL/PSYCH: Negative. ENDOCRINE: Negative. PHYSICAL EXAMINATION General Appearance: Alert, cooperative, morbidly obese in no respiratory distress. Neck HEENT: Supple, no lymphadenopathy, no thyroid enlargement, no carotid bruits. Lungs: Decreased breath some bilateral especially the right lower base with fine rhonchi crackles and minimal expiratory wheezes. Chest Wall: Decrease expansion with deep inspiration no tenderness and no deformity was found on exam, no costochondral pain or discomfort. Heart: Regular rate and rhythm, S1, S2 positive systolic murmur with S3. Back: Symmetric, no curvature, ROM normal, no CVA tenderness. Abdomen: Soft, non-tender, bowel sounds active all four quadrants, no masses, no organomegaly. Extremities: 1+ edema and decreased pulses bilaterally Pulses: 1+ and symmetric. Skin: Skin color, texture, tugor normal, no rashes or lesions. Neurologic: Alert oriented x3 cranial nerves II through XII intact, no motor deficit, no abnormal balance or gait. ASSESSMENT AND PLAN 1 acute hypoxic respiratory failure secondary to acute Covid pneumonitis with worsening symptoms. Consult with pulmonary medicine. Continue Decadron 6 mg IV daily, vitamin C, vitamin D, colchicine, oxygen support.: 2 acute Covid pneumonitis with worsening symptoms. Continue as in #1. 3 worsening COPD: Patient will continue steroid along with updraft treatment and add Pulmicort at this point. 4. Paroxysmal atrial fibrillation, unable to tolerate anticoagulation secondary to acute GI bleed, continue metoprolol 12.5 mg twice daily and flecainide 50 mg twice a day. 5 type 2 diabetes, uncontrolled with hyperglycemia secondary to steroids. Continue Accu-Chek with sliding scales coverage continue Lantus at 45 units daily and still on Januvia. 6 chronic diastolic heart failure. Continue Bumex 1 mg daily, Lopressor. 7 peptic ulcer disease and GI prophylaxis: Continue patient on pantoprazole 40 mg daily. 8 chronic anemia: Remain on iron supplement and multivitamins no need for transfusion. 9 mild hyponatremia: Most likely SIADH from pneumonia will continue mild gentle hydration repeat chemistry in the next 24 hours. 10 DVT prophylaxis: Patient will be on Lovenox 40 mg subcutaneous daily. 11 GI prophylaxis: Will be on pantoprazole. CODE STATUS: Full code. DISCHARGE PLAN Most likely home with home care. Patient may require home oxygen. Impression and plan of care have been directed as dictated by the signing physician. Leeann Rose nurse practitioner acting as scribe for signing physician. Objective - Vital Signs Vital signs: Vital Signs Temp 97.9 F 07/18/20 05:35 Pulse 78 07/18/20 05:35 Resp 20 07/18/20 05:35 BP 163/69 07/18/20 05:35 Pulse Ox 93 L 07/18/20 06:25 Intake & Output 07/17/20 07/18/20 07/18/20 18:59 06:59 18:59 Intake Total 200 Balance 200 Intake: Oral 200 Other: Voiding Method Bedside Commode # Voids 3 3 - Labs CBC & Chem 7: 07/18/20 05:45 07/18/20 05:45 Labs: Abnormal Lab Results - Last 24 Hours (Table) 07/16/20 07/17/20 07/17/20 Range/Units 16:42 05:48 05:48 Hgb 10.1 L (12.0-15.0) g/dL Hct 34.7 L (37.2-46.3) % MCV 74.5 L (80.0-97.0) fL MCH 21.7 L (27.0-32.0) pg MCHC 29.1 L (32.0-37.0) g/dL RDW 17.9 H (11.5-14.5) % Plt Count 137 L (140-440) X 10*3/uL Plt Count Comment A Immature Gran # 0.05 H (0.00-0.04) X 10*3/uL Lymphocytes # 0.83 L (0.90-5.00) X 10*3/uL Eosinophils # 0 L (0.04-0.35) X 10*3/uL BUN/Creatinine Ratio 21.25 H (12.00-20.00) Ratio Glucose 282 H (70-110) mg/dL POC Glucose (mg/dL) (75-99) mg/dL Calcium 8.1 L (8.7-10.3) mg/dL Ferritin 624.2 H (10.0-291.0) ng/mL 07/17/20 07/17/20 07/17/20 Range/Units 11:25 16:43 20:47 Hgb (12.0-15.0) g/dL Hct (37.2-46.3) % MCV (80.0-97.0) fL MCH (27.0-32.0) pg MCHC (32.0-37.0) g/dL RDW (11.5-14.5) % Plt Count (140-440) X 10*3/uL Plt Count Comment Immature Gran # (0.00-0.04) X 10*3/uL Lymphocytes # (0.90-5.00) X 10*3/uL Eosinophils # (0.04-0.35) X 10*3/uL BUN/Creatinine Ratio (12.00-20.00) Ratio Glucose (70-110) mg/dL POC Glucose (mg/dL) 318 H 184 H 114 H (75-99) mg/dL Calcium (8.7-10.3) mg/dL Ferritin (10.0-291.0) ng/mL Microbiology - Last 24 Hours (Table) 07/16/20 16:42 Blood Culture Gram Stain - Preliminary Blood 07/16/20 16:42 Blood Culture - Final Blood 07/16/20 Unknown Blood Culture - Preliminary Blood No Growth after 24 hours
[2020-07-18 11:41] LABS: Glucose,Whole Blood 107 mg/dL (75-99)
--- NOTE | 2020-07-18 14:03 | P.PN ---
Subjective Progress Note Date: 07/18/20 74-year-old female who was seen in the emergency department on 07/16/2020, at 1535. The patient presented with complaints of shortness of breath. The patient has a history of atrial fibrillation, obesity, congestive heart failure, and diabetes. She apparently was diagnosed with COVID 19 infection on July 09. Prior to being tested positive, the patient had 2 weeks of what she describes as a head cold. She started taking vitamins, and Decadron. More recently, she's been getting progressively worse as it relates to her shortness of breath, which now occurs on any activity. She does have some nausea, but denies any vomiting or diarrhea. She denies any chest pain. She denies any genitourinary complaints and lower extremity edema. Apparently her family doctor recommended that she come into the emergency room to be evaluated. A chest x-ray reveals some mild pulmonary interstitial pneumonia, and the CT angiogram revealed no evidence of any central or large pulmonary emboli, but did show extensive groundglass pulmonary interstitial infiltrates, consistent with her diagnosis of COVID19 pneumonia. Unfortunately, she is beyond the window for remdesivir. Currently, she is on 5 L nasal cannula, and her saturations are 99%. Her respiratory rate is 20, and her temperature is 97.6F. Blood pressure is good and heart rate is 71 bpm. Her current white count is 8.09, hemoglobin 10.1, hematocrit 34.7, and platelet count 137,000. Sodium is 135, potassium 4.9, chlorides 102, CO2 25, anion gap 8, BUN 17, and creatinine 0.8. D-dimer is 1.21, ferritin is 624, LDH is 1468, and C-reactive protein is 139. N-terminal proBNP was 1970. Pro-calcitonin level was 0.20. On 07/18/2020 patient seen in follow-up on medical floor, she is currently on 11 L of oxygen, she is awake and alert, she said nobody into the bed, apparently earlier she felt a little dizzy, she feels fatigued, be in no acute distress. Today's labs have been reviewed, showing white blood cell count of 18.5, hemoglobin is 10.4, his inflammatory markers are trending down, LDH is down to 943, CRP is down to 6.6, pro calcitonin level was 0.20. Continues on prophylactic dose of Lovenox, IV Decadron 6 mg daily, colchicine, and zinc Objective - Vital Signs Vital signs: Vital Signs Temp 98.3 F 07/18/20 10:43 Pulse 79 07/18/20 10:43 Resp 16 07/18/20 10:43 BP 162/69 07/18/20 10:43 Pulse Ox 93 L 07/18/20 10:43 Intake & Output 07/17/20 07/18/20 07/18/20 18:59 06:59 18:59 Intake Total 200 Balance 200 Intake: Oral 200 Other: Voiding Method Bedside Commode # Voids 3 3 - Exam GENERAL EXAM: Alert, very pleasant, 74-year-old white female 11 L of oxygen comfortable in no apparent distress. HEAD: Normocephalic/atraumatic. EYES: Normal reaction of pupils, equal size. Conjunctiva pink, sclera white. NOSE: Clear with pink turbinates. THROAT: No erythema or exudates. NECK: No masses, no JVD, no thyroid enlargement, no adenopathy. CHEST: No chest wall deformity. Symmetrical expansion. LUNGS: Equal air entry with no crackles, wheeze, rhonchi or dullness. CVS: Regular rate and rhythm, normal S1 and S2, no gallops, no murmurs, no rubs ABDOMEN: Soft, nontender. No hepatosplenomegaly, normal bowel sounds, no guarding or rigidity. EXTREMITIES: No clubbing, no edema, no cyanosis, 2+ pulses and upper and lower extremities. MUSCULOSKELETAL: Muscle strength and tone normal. SPINE: No scoliosis or deformity SKIN: No rashes CENTRAL NERVOUS SYSTEM: Alert and oriented -3. No focal deficits, tone is normal in all 4 extremities. PSYCHIATRIC: Alert and oriented -3. Appropriate affect. Intact judgment and insight. - Labs CBC & Chem 7: 07/18/20 05:45 07/18/20 05:45 Labs: Abnormal Lab Results - Last 24 Hours (Table) 07/17/20 07/17/20 07/18/20 Range/Units 16:43 20:47 05:45 WBC 18.53 H (4.50-10.00) X 10*3/uL Hgb 10.4 L (12.0-15.0) g/dL MCV 76.3 L (80.0-97.0) fL MCH 21.3 L (27.0-32.0) pg MCHC 27.9 L (32.0-37.0) g/dL RDW 18.3 H (11.5-14.5) % Anion Gap (4.00-12.00) mmol/L Glucose (70-110) mg/dL POC Glucose (mg/dL) 184 H 114 H (75-99) mg/dL Calcium (8.7-10.3) mg/dL AST (13-35) U/L Alkaline Phosphatase (41-126) U/L Lactate Dehydrogenase (120-246) U/L C-Reactive Protein (0.0-0.8) mg/dL Albumin (3.80-4.90) g/dL Albumin/Globulin Ratio (1.60-3.17) g/dL 07/18/20 07/18/20 Range/Units 05:45 11:40 WBC (4.50-10.00) X 10*3/uL Hgb (12.0-15.0) g/dL MCV (80.0-97.0) fL MCH (27.0-32.0) pg MCHC (32.0-37.0) g/dL RDW (11.5-14.5) % Anion Gap 13.90 H (4.00-12.00) mmol/L Glucose 68 L (70-110) mg/dL POC Glucose (mg/dL) 107 H (75-99) mg/dL Calcium 8.4 L (8.7-10.3) mg/dL AST 88 H (13-35) U/L Alkaline Phosphatase 143 H (41-126) U/L Lactate Dehydrogenase 943 H (120-246) U/L C-Reactive Protein 6.6 H (0.0-0.8) mg/dL Albumin 3.50 L (3.80-4.90) g/dL Albumin/Globulin Ratio 1.09 L (1.60-3.17) g/dL Microbiology - Last 24 Hours (Table) 07/16/20 16:42 Blood Culture Gram Stain - Preliminary Blood Blood Culture - Preliminary Coagulase Negative Staph 07/16/20 16:42 Blood Culture - Final Blood 07/16/20 Unknown Blood Culture - Preliminary Blood No Growth after 24 hours Assessment and Plan Plan: Assessment: Acute hypoxemic respiratory failure secondary to COVID 19 pneumonia. History of diabetes mellitus. History of atrial fibrillation. History of congestive heart failure. History of osteoarthritis. History of chronic back pain. Status post lap band surgery for obesity. History of deafness. Plan: Continue current medical treatment, IV steroids, prophylactic dose of Lovenox, vitamins, oxygenation pattern, work of breathing, febrile pattern, inflammatory markers are improving, continue monitoring d-dimer. I performed a history & physical examination of the patient and discussed their management with my nurse practitioner, Corrina Paz. I reviewed the nurse practitioner's note and agree with the documented findings and plan of care. Lung sounds are positive for diminished breath sounds. The findings and the impression was discussed with the patient. I attest to the documentation by the nurse practitioner. Time with Patient: Less than 30
[2020-07-18 15:18] LABS: C Reactive Protein 62.5 mg/L (<10.0)
[2020-07-18 16:47] LABS: Glucose,Whole Blood 253 mg/dL (75-99)
[2020-07-18 20:20] LABS: Glucose,Whole Blood 300 mg/dL (75-99)
[2020-07-18] MEDS: LINAGLIPTIN 5 MG TABLET PO SCH (22:06)
[2020-07-19 07:29] LABS: Glucose,Whole Blood 257 mg/dL (75-99)
[2020-07-19] MEDS: NON FORMULARY DRUG (Potassium Gluconate [Potassium Gluconate] 99 MG Tablet.Er) PO SCH (07:33)
[2020-07-19] MEDS: DEXAMETHASONE SOD PHOSPHATE 10 MG/ML 1 ML VIAL IV SCH (07:37)
[2020-07-19] MEDS: INSULIN ASPART (NovoLOG) 100 UNIT/ML VIAL SQ SCH ×4 (07:37→20:45)
[2020-07-19] MEDS: ZINC SULFATE 220 MG CAP PO SCH (07:37)
[2020-07-19] MEDS: PANTOPRAZOLE 40 MG TABLET PO SCH ×2 (07:37→20:46)
[2020-07-19] MEDS: COLCHICINE 0.6 MG EACH PO SCH ×2 (07:38→20:46)
[2020-07-19] MEDS: ASCORBIC ACID 500 MG TAB PO SCH (07:38)
[2020-07-19] MEDS: METOPROLOL TARTRATE 12.5 MG TAB PO SCH (07:38)
[2020-07-19] MEDS: BUMETANIDE 1 MG TAB PO SCH ×2 (07:38→16:38)
[2020-07-19] MEDS: INSULIN DETEMIR (LEVEMIR) 100 UNIT/ML SYR SQ SCH (07:38)
[2020-07-19] MEDS: FLECAINIDE 50 MG TAB PO SCH ×2 (07:38→20:46)
[2020-07-19] MEDS: CHOLECALCIFEROL 25 MCG (1000 IU) TABLET PO SCH (07:38)
[2020-07-19] MEDS: ENOXAPARIN 40 MG/0.4 ML SYRINGE SQ SCH ×2 (07:39→20:46)
[2020-07-19] MEDS: ALBUTEROL HFA INHALER INHALATION PRN ×3 (07:48→19:30)
--- NOTE | 2020-07-19 08:37 | P.PN ---
Subjective Progress Note Date: 07/19/20 HISTORY OF PRESENT ILLNESS 74-year-old morbidly obese female one of my office patient with past medical history of A. fib with RVR, history of acute gastrointestinal bleed with anemia, history of type 2 diabetes, history of obstructive sleep apnea, mild reactive airway/COPD and mild diastolic congestive heart failure who has been seen in the office the last week for acute Covid, patient was diagnosed on the ended up going for monoclonal anti-body infusion on the . Patient called office with worsening symptoms was seen in virtual visit and was recommended to go to the hospital to be admitted. Patient has been having worsening dyspnea and shortness of breath along with severe hypoxia worsening persistent cough productive of phlegm along with mild twinges of blood. Patient was seen at the emergency department her pulse ox was in the 80 percentile with a few breathing treatment along with 3 L of O2 her pulse ox was increased to the low 90. Patient chest x-ray showed severe interstitial pneumonitis. Her d-dimer was elevated and ended up going for CTA showed extensive ground glass pulmonary interstitial edema could be related to RDS no pleural effusion found at the time. Patient was started on steroids along with updraft treatment O2 will consult pulmonary admit patient to the hospital. 2/2: The patient states that she is feeling much better today. She states that she did not sleep well last night. She is found sitting up in recliner and appears to be comfortable and in no acute distress. She has been afebrile, heart rate 72, blood pressure 160/83, pulse ox 92-98% on 5 L nasal cannula. Consult in place from pulmonary medicine. Blood sugars are running in the 200s. WBC 8, hemoglobin 10.1. Repeat lactic acid 1.7. IV fluids will be disco ntinued. Patient is on her home dose of Bumex. 2/3: Patient has been afebrile, heart rate 79, blood pressure 162/69, pulse ox 93% on 10 L nasal cannula. Patient complains of shortness of breath and feeling cold. She continues to cough. WBC is 18.5, hemoglobin 10.4, electrolytes normal. Creatinine 0.9. Total bilirubin 0.9, AST 88, ALT 44, alkaline phosphatase 143, LDH 943, C reactive protein 6.6. Overall, inflammatory markers are improving. Patient has been seen by pulmonary medicine and is outside of the window for Remdesivir treatment. Colchicine was added /:tates that she was unable to sleep all night. She was on a nonrebreather and she felt she had a panic attack. She states that she is normally claustrophobic. She is currently seen on 15 L with pulse ox of 91%. She appears to be comfortable at rest. She is complaining of dark brown sputum production. She is also having mild nosebleed with dried blood only. Blood sugars are running between 257-300. D-dimer 8.72. LDH and CRP are pending. Patient has been afebrile, heart rate 82, blood pressure 144/51. She will probably not be ready for discharge until Thursday. REVIEW OF SYSTEMS CONSTITUTIONAL: Well-developed no acute respiratory distress. Denies fevers. Denies chills. EYES: No icterus sclerae, no conjunctivitis. EARS, NOSE, MOUTH, THROAT, and FACE: No sore throat, lymphadenopathy, carotid bruits or deformity. RESPIRATORY: Moderate dyspnea and shortness of breath and cough. Dyspnea with exertion. Positive brown sputum production. CARDIOVASCULAR: Positive PND orthopnea palpitation with no angina. GASTROINTESTINAL: No Abd pain, Nausea or vomiting, no Diarrhea or constipation, No GI Bleed, no distention or masses. GENITOURINARY: Negative for Hematuria or UTI, no kidney stones. INTEGUMENT/BREAST: Negative for any muscular injury with mild osteoarthritis. Chronic edema. HEMATOLOGIC/LYMPHATIC: Negative for bleed or purpura. MUSCULOSKELTAL: Negative for Myalgia or arthralgia. Significant arthralgia and myalgia. NEURLOGICAL: No LOC, Sz or syncope, blurred vision dizziness or abnormality.. BEHAVIORAL/PSYCH: Negative. ENDOCRINE: Negative. PHYSICAL EXAMINATION General Appearance: Alert, cooperative, morbidly obese in no respiratory distress. Neck HEENT: Supple, no lymphadenopathy, no thyroid enlargement, no carotid bruits. Lungs: Decreased breath some bilateral especially the right lower base with fine rhonchi crackles and minimal expiratory wheezes. Chest Wall: Decrease expansion with deep inspiration no tenderness and no de formity was found on exam, no costochondral pain or discomfort. Heart: Regular rate and rhythm, S1, S2 positive systolic murmur with S3. Back: Symmetric, no curvature, ROM normal, no CVA tenderness. Abdomen: Soft, non-tender, bowel sounds active all four quadrants, no masses, no organomegaly. Extremities: 1+ edema and decreased pulses bilaterally. Pulses: 1+ and symmetric. Skin: Skin color, texture, tugor normal, no rashes or lesions. Neurologic: Alert oriented x3 cranial nerves II through XII intact, no motor deficit, no abnormal balance or gait. ASSESSMENT AND PLAN 1 acute hypoxic respiratory failure secondary to acute Covid pneumonitis with worsening symptoms. Consult with pulmonary medicine. Continue Decadron 6 mg IV daily, vitamin C, vitamin D, colchicine, oxygen support, lovenox. 2 acute Covid pneumonitis with worsening symptoms. Continue as in #1. 3 worsening COPD: Patient will continue steroid along with updraft treatment and add Pulmicort at this point. 4. Paroxysmal atrial fibrillation, unable to tolerate anticoagulation secondary to acute GI bleed, continue metoprolol 12.5 mg twice daily and flecainide 50 mg twice a day. 5 type 2 diabetes, uncontrolled with hyperglycemia secondary to steroids. Continue Accu-Chek with sliding scales coverage continue Lantus at 45 units daily and still on Januvia. 6 chronic diastolic heart failure. Continue Bumex 1 mg daily, Lopressor. 7 peptic ulcer disease and GI prophylaxis: Continue patient on pantoprazole 40 mg daily. 8 chronic anemia: Remain on iron supplement and multivitamins no need for transfusion. 9 mild hyponatremia: Most likely SIADH from pneumonia will continue mild gentle hydration repeat chemistry in the next 24 hours. 10 DVT prophylaxis: Patient will be on Lovenox 40 mg subcutaneous daily. 11 GI prophylaxis: Will be on pantoprazole. CODE STATUS: Full code. DISCHARGE PLAN Most likely home with home care on Thursday. Patient may require home oxygen. Impression and plan of care have been directed as dictated by the signing physician. Leeann Rose nurse practitioner acting as scribe for signing physician. Objective - Vital Signs Vital signs: Vital Signs Temp 98.0 F 07/19/20 06:08 Pulse 82 07/19/20 06:08 Resp 19 07/19/20 06:08 BP 144/51 07/19/20 06:08 Pulse Ox 91 L 07/19/20 06:08 Intake & Output 07/18/20 07/19/20 07/19/20 18:59 06:59 18:59 Intake Total 540 Balance 540 Intake: Oral 540 Other: Voiding Method Bedside Commode # Voids 3 3 # Bowel Movements 3 2 - Labs CBC & Chem 7: 07/18/20 05:45 07/18/20 05:45 Labs: Abnormal Lab Results - Last 24 Hours (Table) 07/18/20 07/18/20 07/18/20 Range/Units 05:45 05:45 11:40 WBC 18.53 H (4.50-10.00) X 10*3/uL Hgb 10.4 L (12.0-15.0) g/dL MCV 76.3 L (80.0-97.0) fL MCH 21.3 L (27.0-32.0) pg MCHC 27.9 L (32.0-37.0) g/dL RDW 18.3 H (11.5-14.5) % D-Dimer (<0.60) mg/L FEU Anion Gap 13.90 H (4.00-12.00) mmol/L Glucose 68 L (70-110) mg/dL POC Glucose (mg/dL) 107 H (75-99) mg/dL Calcium 8.4 L (8.7-10.3) mg/dL AST 88 H (13-35) U/L Alkaline Phosphatase 143 H (41-126) U/L Lactate Dehydrogenase 943 H (120-246) U/L C-Reactive Protein 6.6 H (0.0-0.8) mg/dL Albumin 3.50 L (3.80-4.90) g/dL Albumin/Globulin Ratio 1.09 L (1.60-3.17) g/dL 07/18/20 07/18/20 07/18/20 Range/Units 14:39 14:39 16:46 WBC (4.50-10.00) X 10*3/uL Hgb (12.0-15.0) g/dL MCV (80.0-97.0) fL MCH (27.0-32.0) pg MCHC (32.0-37.0) g/dL RDW (11.5-14.5) % D-Dimer 4.49 H (<0.60) mg/L FEU Anion Gap (4.00-12.00) mmol/L Glucose (70-110) mg/dL POC Glucose (mg/dL) 253 H (75-99) mg/dL Calcium (8.7-10.3) mg/dL AST (13-35) U/L Alkaline Phosphatase (41-126) U/L Lactate Dehydrogenase 1673 H (120-246) U/L C-Reactive Protein 62.5 H (0.0-0.8) mg/dL Albumin (3.80-4.90) g/dL Albumin/Globulin Ratio (1.60-3.17) g/dL 07/18/20 07/19/20 07/19/20 Range/Units 20:19 06:22 07:28 WBC (4.50-10.00) X 10*3/uL Hgb (12.0-15.0) g/dL MCV (80.0-97.0) fL MCH (27.0-32.0) pg MCHC (32.0-37.0) g/dL RDW (11.5-14.5) % D-Dimer 8.72 H (<0.60) mg/L FEU Anion Gap (4.00-12.00) mmol/L Glucose (70-110) mg/dL POC Glucose (mg/dL) 300 H 257 H (75-99) mg/dL Calcium (8.7-10.3) mg/dL AST (13-35) U/L Alkaline Phosphatase (41-126) U/L Lactate Dehydrogenase (120-246) U/L C-Reactive Protein (0.0-0.8) mg/dL Albumin (3.80-4.90) g/dL Albumin/Globulin Ratio (1.60-3.17) g/dL Microbiology - Last 24 Hours (Table) 07/16/20 Unknown Blood Culture - Preliminary Blood No Growth after 48 hours 07/16/20 16:42 Blood Culture Gram Stain - Preliminary Blood Blood Culture - Preliminary Coagulase Negative Staph 07/16/20 16:42 Blood Culture - Final Blood
--- NOTE | 2020-07-19 10:44 | XR ---
EXAMINATION TYPE: XR chest 1V portable DATE OF EXAM: 07/19/2020 COMPARISON: Chest x-ray 07/16/2020 HISTORY: Cough and shortness of breath, Covid 19 infection TECHNIQUE: Single frontal view of the chest is obtained. FINDINGS: Technique is somewhat apical lordotic. Cardiac mediastinal silhouette is stable, heart is enlarged. Central vascularity and interstitium are increased, bilateral groundglass opacity within th e lungs. No pneumothorax or pleural effusion. There is persistent elevation right hemidiaphragm. IMPRESSION: Correlate for pneumonia, edema, there is cardiomegaly.
[2020-07-19 11:09] LABS: Glucose,Whole Blood 264 mg/dL (75-99)
[2020-07-19 12:25] LABS: C Reactive Protein 9.4 mg/dL (0.0-0.8)
--- NOTE | 2020-07-19 12:32 | P.PN ---
Subjective Progress Note Date: 07/19/20 74-year-old female who was seen in the emergency department on 07/16/2020, at 1535. The patient presented with complaints of shortness of breath. The patient has a history of atrial fibrillation, obesity, congestive heart failure, and diabetes. She apparently was diagnosed with COVID 19 infection on July 09. Prior to being tested positive, the patient had 2 weeks of what she describes as a head cold. She started taking vitamins, and Decadron. More recently, she's been getting progressively worse as it relates to her shortness of breath, which now occurs on any activity. She does have some nausea, but denies any vomiting or diarrhea. She denies any chest pain. She denies any genitourinary complaints and lower extremity edema. Apparently her family doctor recommended that she come into the emergency room to be evaluated. A chest x-ray reveals some mild pulmonary interstitial pneumonia, and the CT angiogram revealed no evidence of any central or large pulmonary emboli, but did show extensive groundglass pulmonary interstitial infiltrates, consistent with her diagnosis of COVID19 pneumonia. Unfortunately, she is beyond the window for remdesivir. Currently, she is on 5 L nasal cannula, and her saturations are 99%. Her respiratory rate is 20, and her temperature is 97.6F. Blood pressure is good and heart rate is 71 bpm. Her current white count is 8.09, hemoglobin 10.1, hematocrit 34.7, and platelet count 137,000. Sodium is 135, potassium 4.9, chlorides 102, CO2 25, anion gap 8, BUN 17, and creatinine 0.8. D-dimer is 1.21, ferritin is 624, LDH is 1468, and C-reactive protein is 139. N-terminal proBNP was 1970. Pro-calcitonin level was 0.20. On 07/18/2020 patient seen in follow-up on medical floor, she is currently on 11 L of oxygen, she is awake and alert, she said nobody into the bed, apparently earlier she felt a little dizzy, she feels fatigued, be in no acute distress. Today's labs have been reviewed, showing white blood cell count of 18.5, hemoglobin is 10.4, his inflammatory markers are trending down, LDH is down to 943, CRP is down to 6.6, pro calcitonin level was 0.20. Continues on prophylactic dose of Lovenox, IV Decadron 6 mg daily, colchicine, and zinc On 07/19/2020 patient seen in follow-up on medical floor. She is currently up to 2 L of oxygen, her pulse ox is 91-94%, she states she feels better but she is requiring more oxygen, she states she is coughing up some phlegm. Today's chest x-ray has been reviewed showing central vascularity and interstitial increased, bilateral groundglass opacity within the lungs. And there is persistent elevation of the right hemidiaphragm. Patient seems to have increased edema in her lower extremities, she is currently on a daily dose of oral Bumex 1 mg daily, her lung sounds positive for scattered rhonchi. We will add empiric antibiotics, will afternoon dose of oral Bumex and obtain follow-up chest x-ray tomorrow. Physically she states she is feeling better, she is able to clear some phlegm. Denies any hemoptysis or chest pain. Objective - Vital Signs Vital signs: Vital Signs Temp 98.1 F 07/19/20 09:57 Pulse 72 07/19/20 09:57 Resp 20 07/19/20 09:57 BP 142/79 07/19/20 09:57 Pulse Ox 92 L 07/19/20 09:57 Intake & Output 07/18/20 07/19/20 07/19/20 18:59 06:59 18:59 Intake Total 540 Balance 540 Intake: Oral 540 Other: Voiding Method Bedside Commode # Voids 3 3 # Bowel Movements 3 2 - Exam GENERAL EXAM: Alert, very pleasant, 74-year-old white female 15 L of oxygen comfortable in no apparent distress. HEAD: Normocephalic/atraumatic. EYES: Normal reaction of pupils, equal size. Conjunctiva pink, sclera white. NOSE: Clear with pink turbinates. THROAT: No erythema or exudates. NECK: No masses, no JVD, no thyroid enlargement, no adenopathy. CHEST: No chest wall deformity. Symmetrical expansion. LUNGS: Equal air entry with no crackles, wheeze, rhonchi or dullness. CVS: Regular rate and rhythm, normal S1 and S2, no gallops, no murmurs, no rubs ABDOMEN: Soft, nontender. No hepatosplenomegaly, normal bowel sounds, no guarding or rigidity. EXTREMITIES: No clubbing, no edema, no cyanosis, 2+ pulses and upper and lower extremities. MUSCULOSKELETAL: Muscle strength and tone normal. SPINE: No scoliosis or deformity SKIN: No rashes CENTRAL NERVOUS SYSTEM: Alert and oriented -3. No focal deficits, tone is normal in all 4 extremities. PSYCHIATRIC: Alert and oriented -3. Appropriate affect. Intact judgment and insight. - Labs CBC & Chem 7: 07/18/20 05:45 07/18/20 05:45 Labs: Abnormal Lab Results - Last 24 Hours (Table) 07/18/20 07/18/20 07/18/20 Range/Units 14:39 14:39 16:46 D-Dimer 4.49 H (<0.60) mg/L FEU POC Glucose (mg/dL) 253 H (75-99) mg/dL Lactate Dehydrogenase 1673 H (313-618) U/L C-Reactive Protein 62.5 H (<10.0) mg/L 07/18/20 07/19/20 07/19/20 Range/Units 20:19 06:22 06:22 D-Dimer 8.72 H (<0.60) mg/L FEU POC Glucose (mg/dL) 300 H (75-99) mg/dL Lactate Dehydrogenase 780 H (313-618) U/L C-Reactive Protein 9.4 H (<10.0) mg/L 07/19/20 07/19/20 Range/Units 07:28 11:05 D-Dimer (<0.60) mg/L FEU POC Glucose (mg/dL) 257 H 264 H (75-99) mg/dL Lactate Dehydrogenase (313-618) U/L C-Reactive Protein (<10.0) mg/L Microbiology - Last 24 Hours (Table) 07/16/20 Unknown Blood Culture - Preliminary Blood No Growth after 48 hours 07/16/20 16:42 Blood Culture Gram Stain - Preliminary Blood Blood Culture - Preliminary Coagulase Negative Staph Assessment and Plan Plan: Assessment: #1. Acute hypoxemic respiratory failure secondary to COVID 19 pneumonia. #2. History of diabetes mellitus. #3. History of atrial fibrillation. #4. History of congestive heart failure. #5. History of osteoarthritis. #6. History of chronic back pain. #7. Status post lap band surgery for obesity. #8. History of deafness. Plan: Today's chest x-ray has been reviewed showing creased interstitium and central vascularity, and groundglass infiltrates, suspect fluid overload, patient is also having increased chest congestion and plan production, we will increase the Bumex dose to 1 mg twice daily, we will add Augmentin for antibiotic coverage, send sputum for culture. Continue same dose steroids, continue Lovenox 40 mg tw ice daily, we will continue to closely follow. I performed a history & physical examination of the patient and discussed their management with my nurse practitioner, Corrina Paz. I reviewed the nurse practitioner's note and agree with the documented findings and plan of care. Lung sounds are positive for diminished breath sounds. The findings and the impression was discussed with the patient. I attest to the documentation by the nurse practitioner. Time with Patient: Less than 30
[2020-07-19 17:10] LABS: Glucose,Whole Blood 170 mg/dL (75-99)
[2020-07-19 20:12] LABS: Glucose,Whole Blood 261 mg/dL (75-99)
[2020-07-19] MEDS: AMOXIC-POT CLAV 875-125MG 1 EACH TAB PO SCH (20:45)
[2020-07-19] MEDS: LINAGLIPTIN 5 MG TABLET PO SCH (20:46)
[2020-07-20 07:15] LABS: Glucose,Whole Blood 132 mg/dL (75-99)
[2020-07-20] MEDS: ALBUTEROL HFA INHALER INHALATION PRN ×3 (08:07→20:09)
[2020-07-20] MEDS: METOPROLOL TARTRATE 12.5 MG TAB PO SCH (08:12)
[2020-07-20] MEDS: ASCORBIC ACID 500 MG TAB PO SCH (08:12)
[2020-07-20] MEDS: INSULIN DETEMIR (LEVEMIR) 100 UNIT/ML SYR SQ SCH (08:12)
[2020-07-20] MEDS: COLCHICINE 0.6 MG EACH PO SCH ×2 (08:13→20:42)
[2020-07-20] MEDS: CHOLECALCIFEROL 25 MCG (1000 IU) TABLET PO SCH (08:13)
[2020-07-20] MEDS: FLECAINIDE 50 MG TAB PO SCH ×2 (08:13→20:42)
[2020-07-20] MEDS: AMOXIC-POT CLAV 875-125MG 1 EACH TAB PO SCH ×2 (08:13→20:42)
[2020-07-20] MEDS: BUMETANIDE 1 MG TAB PO SCH ×2 (08:13→15:54)
[2020-07-20] MEDS: ENOXAPARIN 40 MG/0.4 ML SYRINGE SQ SCH (08:14)
[2020-07-20] MEDS: PANTOPRAZOLE 40 MG TABLET PO SCH ×2 (08:14→20:43)
[2020-07-20] MEDS: ZINC SULFATE 220 MG CAP PO SCH (08:14)
[2020-07-20] MEDS: INSULIN ASPART (NovoLOG) 100 UNIT/ML VIAL SQ SCH ×6 (08:14→20:43)
[2020-07-20] MEDS: DEXAMETHASONE SOD PHOSPHATE 10 MG/ML 1 ML VIAL IV SCH (08:14)
--- NOTE | 2020-07-20 08:18 | XR ---
EXAMINATION TYPE: XR chest 1V portable DATE OF EXAM: 07/20/2020 COMPARISON: Chest x-ray 07/19/2020 HISTORY: Covid pneumonia TECHNIQUE: Single frontal view of the chest is obtained. FINDINGS: There is been likely progression in bilateral airspace disease. No evident pneumothorax or pleural effusion. Cardiac mediastinal silhouette is stable. IMPRESSION: Findings may represent worsening airspace disease, pneumonia, edema
[2020-07-20] MEDS: methylPREDNISolone SOD SUCCI 125 MG/2 ML VIAL IV SCH ×4 (08:57→23:18)
[2020-07-20] MEDS ORDERED: ENOXAPARIN 30 MG/0.3 ML SYRINGE SQ ONE (09:00)
--- NOTE | 2020-07-20 11:31 | P.PN ---
Subjective Progress Note Date: 07/20/20 HISTORY OF PRESENT ILLNESS 74-year-old morbidly obese female one of my office patient with past medical history of A. fib with RVR, history of acute gastrointestinal bleed with anemia, history of type 2 diabetes, history of obstructive sleep apnea, mild reactive airway/COPD and mild diastolic congestive heart failure who has been seen in the office the last week for acute Covid, patient was diagnosed on the ended up going for monoclonal anti-body infusion on the . Patient called office with worsening symptoms was seen in virtual visit and was recommended to go to the hospital to be admitted. Patient has been having worsening dyspnea and shortness of breath along with severe hypoxia worsening persistent cough productive of phlegm along with mild twinges of blood. Patient was seen at the emergency department her pulse ox was in the 80 percentile with a few breathing treatment along with 3 L of O2 her pulse ox was increased to the low 90. Patient chest x-ray showed severe interstitial pneumonitis. Her d-dimer was elevated and ended up going for CTA showed extensive ground glass pulmonary interstitial edema could be related to RDS no pleural effusion found at the time. Patient was started on steroids along with updraft treatment O2 will consult pulmonary admit patient to the hospital. 2/2: The patient states that she is feeling much better today. She states that she did not sleep well last night. She is found sitting up in recliner and appears to be comfortable and in no acute distress. She has been afebrile, heart rate 72, blood pressure 160/83, pulse ox 92-98% on 5 L nasal cannula. Consult in place from pulmonary medicine. Blood sugars are running in the 200s. WBC 8, hemoglobin 10.1. Repeat lactic acid 1.7. IV fluids will be disco ntinued. Patient is on her home dose of Bumex. 2/3: Patient has been afebrile, heart rate 79, blood pressure 162/69, pulse ox 93% on 10 L nasal cannula. Patient complains of shortness of breath and feeling cold. She continues to cough. WBC is 18.5, hemoglobin 10.4, electrolytes normal. Creatinine 0.9. Total bilirubin 0.9, AST 88, ALT 44, alkaline phosphatase 143, LDH 943, C reactive protein 6.6. Overall, inflammatory markers are improving. Patient has been seen by pulmonary medicine and is outside of the window for Remdesivir treatment. Colchicine was added 07/19:tates that she was unable to sleep all night. She was on a nonrebreather and she felt she had a panic attack. She states that she is normally claustrophobic. She is currently seen on 15 L with pulse ox of 91%. She appears to be comfortable at rest. She is complaining of dark brown sputum production. She is also having mild nosebleed with dried blood only. Blood sugars are running between 257-300. D-dimer 8.72. LDH and CRP are pending. Patient has been afebrile, heart rate 82, blood pressure 144/51. She will probably not be ready for discharge until Thursday. 07/20: Patient has developed increasing shortness of breath overnight. She is now requiring high flow nasal cannula and nonrebreather with pulse ox of 91-95%. She has been afebrile, heart rate 77, blood pressure 178/79. Blood sugars are running between 132 and 261. Convalescent plasma has been ordered by pulmonary medicine today. Steroids have been changed to Solu-Medrol 60 mg IV every 6 hours. Lovenox increased to 70 mg subcu twice daily. Antibiotics in the form of Augmentin. REVIEW OF SYSTEMS CONSTITUTIONAL: Well-developed with moderate respiratory distress. Denies fevers. Denies chills. EYES: No icterus sclerae, no conjunctivitis. EARS, NOSE, MOUTH, THROAT, and FACE: No sore throat, lymphadenopathy, carotid bruits or deformity. RESPIRATORY: Moderate dyspnea and shortness of breath and cough. Dyspnea with exertion. Positive brown sputum production. CARDIOVASCULAR: Positive PND orthopnea palpitation with no angina. GASTROINTESTINAL: No Abd pain, Nausea or vomiting, no Diarrhea or constipation, No GI Bleed, no distention or masses. GENITOURINARY: Negative for Hematuria or UTI, no kidney stones. INTEGUMENT/BREAST: Negative for any muscular injury with mild osteoarthritis. Chronic edema. HEMATOLOGIC/LYMPHATIC: Negative for bleed or purpura. MUSCULOSKELTAL: Negative for Myalgia or arthralgia. Significant arthralgia and myalgia. NEURLOGICAL: No LOC, Sz or syncope, blurred vision dizziness or abnormality.. BEHAVIORAL/PSYCH: Negative. ENDOCRINE: Negative. PHYSICAL EXAMINATION General Appearance: Alert, cooperative, morbidly obese in no respiratory distre ss. Neck HEENT: Supple, no lymphadenopathy, no thyroid enlargement, no carotid bruits. Lungs: Decreased breath some bilateral especially the right lower base with fine rhonchi crackles and minimal expiratory wheezes. Positive accessory muscle usage Chest Wall: Decrease expansion with deep inspiration no tenderness and no deformity was found on exam, no costochondral pain or discomfort. Heart: Regular rate and rhythm, S1, S2 positive systolic murmur with S3. Back: Symmetric, no curvature, ROM normal, no CVA tenderness. Abdomen: Soft, non-tender, bowel sounds active all four quadrants, no masses, no organomegaly. Extremities: 1+ edema and decreased pulses bilaterally. Pulses: 1+ and symmetric . Skin: Skin color, texture, tugor normal, no rashes or lesions. Neurologic: Alert oriented x3 cranial nerves II through XII intact, no motor deficit, no abnormal balance or gait. ASSESSMENT AND PLAN 1 acute hypoxic respiratory failure secondary to acute Covid pneumonitis with worsening symptoms. Consult with pulmonary medicine. Continue Solu-Medrol 60 mg IV every 6 hours, convalescent plasma, Augmentin, vitamin C, vitamin D, colchicine, oxygen support, lovenox increased to 70 mg twice daily. 2 acute Covid pneumonitis with worsening symptoms. Continue as in #1. 3 COPD continue albuterol inhaler. 4. Paroxysmal atrial fibrillation, unable to tolerate anticoagulation secondary to acute GI bleed, continue metoprolol 12.5 mg twice daily and flecainide 50 mg twice a day. 5 type 2 diabetes, uncontrolled with hyperglycemia secondary to steroids. Continue Accu-Chek with sliding scales coverage continue Lantus at 45 units daily and still on Januvia. And scheduled NovoLog 3u with meals. 6 chronic diastolic heart failure. Continue Bumex 1 mg daily, Lopressor. 7 peptic ulcer disease and GI prophylaxis: Continue patient on pantoprazole 40 mg daily. 8 chronic anemia: Remain on iron supplement and multivitamins no need for transfusion. 9 mild hyponatremia: Most likely SIADH from pneumonia will continue mild gentle hydration repeat chemistry in the next 24 hours. 10 DVT prophylaxis: Patient will be on Lovenox 40 mg subcutaneous daily. 11 GI prophylaxis: Will be on pantoprazole. CODE STATUS: Full code. DISCHARGE PLAN Most likely home next week. Patient may require home oxygen. Impression and plan of care have been directed as dictated by the signing physician. Leeann Rose nurse practitioner acting as scribe for signing physician. Objective - Vital Signs Vital signs: Vital Signs Temp 98.2 F 07/20/20 05:46 Pulse 53 L 07/20/20 05:46 Resp 18 07/20/20 05:46 BP 103/66 07/20/20 05:46 Pulse Ox 99 07/20/20 05:46 Intake & Output 07/19/20 07/20/20 07/20/20 18:59 06:59 18:59 Output Total 3 Balance -3 Output: Urine 3 Other: Voiding Method Bedside Commode # Voids 2 # Bowel Movements 3 - Labs CBC & Chem 7: 07/18/20 05:45 07/18/20 05:45 Labs: Abnormal Lab Results - Last 24 Hours (Table) 07/19/20 07/19/20 07/19/20 Range/Units 06:22 06:22 11:05 POC Glucose (mg/dL) 264 H (75-99) mg/dL Lactate Dehydrogenase 780 H (120-246) U/L C-Reactive Protein 9.4 H (0.0-0.8) mg/dL Procalcitonin 0.12 H (0.02-0.09) ng/mL 07/19/20 07/19/20 07/20/20 Range/Units 17:07 20:10 07:01 POC Glucose (mg/dL) 170 H 261 H 132 H (75-99) mg/dL Lactate Dehydrogenase (120-246) U/L C-Reactive Protein (0.0-0.8) mg/dL Procalcitonin (0.02-0.09) ng/mL Microbiology - Last 24 Hours (Table) 07/16/20 Unknown Blood Culture - Preliminary Blood No Growth after 72 hours
[2020-07-20 12:07] LABS: Glucose,Whole Blood 163 mg/dL (75-99)
[2020-07-20] MEDS: NON FORMULARY DRUG (Potassium Gluconate [Potassium Gluconate] 99 MG Tablet.Er) PO SCH (12:10)
--- NOTE | 2020-07-20 12:21 | P.PN ---
Subjective Progress Note Date: 07/20/20 74-year-old female who was seen in the emergency department on 07/16/2020, at 1535. The patient presented with complaints of shortness of breath. The patient has a history of atrial fibrillation, obesity, congestive heart failure, and diabetes. She apparently was diagnosed with COVID 19 infection on July 09. Prior to being tested positive, the patient had 2 weeks of what she describes as a head cold. She started taking vitamins, and Decadron. More recently, she's been getting progressively worse as it relates to her shortness of breath, which now occurs on any activity. She does have some nausea, but denies any vomiting or diarrhea. She denies any chest pain. She denies any genitourinary complaints and lower extremity edema. Apparently her family doctor recommended that she come into the emergency room to be evaluated. A chest x-ray reveals some mild pulmonary interstitial pneumonia, and the CT angiogram revealed no evidence of any central or large pulmonary emboli, but did show extensive groundglass pulmonary interstitial infiltrates, consistent with her diagnosis of COVID19 pneumonia. Unfortunately, she is beyond the window for remdesivir. Currently, she is on 5 L nasal cannula, and her saturations are 99%. Her respiratory rate is 20, and her temperature is 97.6F. Blood pressure is good and heart rate is 71 bpm. Her current white count is 8.09, hemoglobin 10.1, hematocrit 34.7, and platelet count 137,000. Sodium is 135, potassium 4.9, chlorides 102, CO2 25, anion gap 8, BUN 17, and creatinine 0.8. D-dimer is 1.21, ferritin is 624, LDH is 1468, and C-reactive protein is 139. N-terminal proBNP was 1970. Pro-calcitonin level was 0.20. On 07/18/2020 patient seen in follow-up on medical floor, she is currently on 11 L of oxygen, she is awake and alert, she said nobody into the bed, apparently earlier she felt a little dizzy, she feels fatigued, be in no acute distress. Today's labs have been reviewed, showing white blood cell count of 18.5, hemoglobin is 10.4, his inflammatory markers are trending down, LDH is down to 943, CRP is down to 6.6, pro calcitonin level was 0.20. Continues on prophylactic dose of Lovenox, IV Decadron 6 mg daily, colchicine, and zinc On 07/19/2020 patient seen in follow-up on medical floor. She is currently up to 2 L of oxygen, her pulse ox is 91-94%, she states she feels better but she is requiring more oxygen, she states she is coughing up some phlegm. Today's chest x-ray has been reviewed showing central vascularity and interstitial increased, bilateral groundglass opacity within the lungs. And there is persistent elevation of the right hemidiaphragm. Patient seems to have increased edema in her lower extremities, she is currently on a daily dose of oral Bumex 1 mg daily, her lung sounds positive for scattered rhonchi. We will add empiric antibiotics, will afternoon dose of oral Bumex and obtain follow-up chest x-ray tomorrow. Physically she states she is feeling better, she is able to clear some phlegm. On 07/20/2020 patient seen in follow-up on medical floor, her oxygen requirements are continuously increasing, currently up to 15 L of oxygen per high flow nasal cannula and partial nonrebreather and her pulse ox is between 91-95%, afebrile. She is more dyspneic today, her lower extremities remain swollen, we did give the patient a dose of diuretics yesterday, however her neck fluid balance is very difficult to estimate. Her inflammatory markers have been reviewed, and pH is down to 780, and CRP is at 9.4, pro calcitonin level has decreased and is down to 0.12, however d-dimer has trended down and is up to 8.72, and we will adjust the dose of Lovenox to 0.5 mg/kg of body weight twice daily. Based Effexor has been reviewed showing worsening airspace disease, pneumonia and pulmonary edema. Objective - Vital Signs Vital signs: Vital Signs Temp 97.9 F 07/20/20 10:00 Pulse 77 07/20/20 10:00 Resp 22 07/20/20 10:00 BP 178/79 07/20/20 10:00 Pulse Ox 95 07/20/20 10:00 Intake & Output 07/19/20 07/20/20 07/20/20 18:59 06:59 18:59 Output Total 3 Balance -3 Output: Urine 3 Other: Voiding Method Bedside Commode # Voids 2 # Bowel Movements 3 - Exam GENERAL EXAM: Alert, very pleasant, 74-year-old white female 15 L of oxygen to partial nonrebreather mask, with pulse ox between 91-96% breathing is mildly to moderately labored HEAD: Normocephalic/atraumatic. EYES: Normal reaction of pupils, equal size. Conjunctiva pink, sclera white. NOSE: Clear with pink turbinates. THROAT: No erythema or exudates. NECK: No masses, no JVD, no thyroid enlargement, no adenopathy. CHEST: No chest wall deformity. Symmetrical expansion. LUNGS: Equal air entry with no crackles, wheeze, rhonchi or dullness. CVS: Regular rate and rhythm, normal S1 and S2, no gallops, no murmurs, no rubs ABDOMEN: Soft, nontender. No hepatosplenomegaly, normal bowel sounds, no guarding or rigidity. EXTREMITIES: No clubbing, no edema, no cyanosis, 2+ pulses and upper and lower extremities. MUSCULOSKELETAL: Muscle strength and tone normal. SPINE: No scoliosis or deformity SKIN: No rashes CENTRAL NERVOUS SYSTEM: Alert and oriented -3. No focal deficits, tone is normal in all 4 extremities. PSYCHIATRIC: Alert and oriented -3. Appropriate affect. Intact judgment and insight. - Labs CBC & Chem 7: 07/18/20 05:45 07/18/20 05:45 Labs: Abnormal Lab Results - Last 24 Hours (Table) 07/19/20 07/19/20 07/19/20 Range/Units 06:22 06:22 17:07 POC Glucose (mg/dL) 170 H (75-99) mg/dL Lactate Dehydrogenase 780 H (120-246) U/L C-Reactive Protein 9.4 H (0.0-0.8) mg/dL Procalcitonin 0.12 H (0.02-0.09) ng/mL 07/19/20 07/20/20 Range/Units 20:10 07:01 POC Glucose (mg/dL) 261 H 132 H (75-99) mg/dL Lactate Dehydrogenase (120-246) U/L C-Reactive Protein (0.0-0.8) mg/dL Procalcitonin (0.02-0.09) ng/mL Microbiology - Last 24 Hours (Table) 07/16/20 Unknown Blood Culture - Preliminary Blood No Growth after 72 hours Assessment and Plan Plan: Assessment: #1. Acute hypoxemic respiratory failure secondary to COVID 19 pneumonia. On 05/19/2021 patient hypoxemia is worsening, and patient is currently on 15 L per high flow nasal cannula in addition to nonrebreather mask with pulse ox of 91-96%, she will be given 2 units of convalescent plasma if available, and her steroids have been increased to 60 mg every 6 hours. Chest x-ray shows worsening airspace disease #2. History of diabetes mellitus. #3. History of atrial fibrillation. #4. History of congestive heart failure. #5. History of osteoarthritis. #6. History of chronic back pain. #7. Status post lap band surgery for obesity. #8. History of deafness. Plan: Continue Bumex 2 mg BID, antibiotics, Will switch Decadron to Solu-Medrol 60 mg every 6 hours, we'll give the patient 2 units of convalescent plasma, and titrate FiO2 to keep O2 sat at or above 90%, may switch to Airvo if unable to meet the FiO2 requirement using the high flow nasal cannula in the nonrebreather mask. Insert Knight for accurate intake and output. We'll increase the Lovenox to 70 mg twice daily, we'll continue to closely follow and monitor for signs of clinical worsening, we discussed CODE STATUS with the patient and patient made it very clear that she does not want to be intubated and placed on mechanical , and she does not want aggressive resuscitation. We'll continue supportive medical treatment I performed a history & physical examination of the patient and discussed their management with my nurse practitioner, Corrina Paz. I reviewed the nurse morris reyna's note and agree with the documented findings and plan of care. Lung sounds are positive for diminished breath sounds. The findings and the impression was discussed with the patient. I attest to the documentation by the nurse practitioner. Time with Patient: Less than 30
[2020-07-20 17:12] LABS: Glucose,Whole Blood 203 mg/dL (75-99)
[2020-07-20 20:27] LABS: Glucose,Whole Blood 292 mg/dL (75-99)
[2020-07-20] MEDS: ENOXAPARIN 80 MG/0.8 ML SYRINGE SQ SCH (20:42)
[2020-07-20] MEDS: LINAGLIPTIN 5 MG TABLET PO SCH (20:43)
[2020-07-21] MEDS: methylPREDNISolone SOD SUCCI 125 MG/2 ML VIAL IV SCH ×4 (05:14→23:18)
[2020-07-21 07:07] LABS: Glucose,Whole Blood 244 mg/dL (75-99)
[2020-07-21] MEDS: ALBUTEROL HFA INHALER INHALATION PRN ×2 (08:27→11:53)
[2020-07-21] MEDS: CHOLECALCIFEROL 25 MCG (1000 IU) TABLET PO SCH (09:15)
[2020-07-21] MEDS: AMOXIC-POT CLAV 875-125MG 1 EACH TAB PO SCH ×2 (09:15→20:51)
[2020-07-21] MEDS: ZINC SULFATE 220 MG CAP PO SCH (09:15)
[2020-07-21] MEDS: PANTOPRAZOLE 40 MG TABLET PO SCH ×2 (09:15→20:51)
[2020-07-21] MEDS: ASCORBIC ACID 500 MG TAB PO SCH (09:15)
[2020-07-21] MEDS: ENOXAPARIN 80 MG/0.8 ML SYRINGE SQ SCH ×2 (09:16→20:51)
[2020-07-21] MEDS: COLCHICINE 0.6 MG EACH PO SCH ×2 (09:16→20:51)
[2020-07-21] MEDS: FLECAINIDE 50 MG TAB PO SCH ×2 (09:16→20:51)
[2020-07-21] MEDS: METOPROLOL TARTRATE 12.5 MG TAB PO SCH (09:17)
[2020-07-21] MEDS: NON FORMULARY DRUG (Potassium Gluconate [Potassium Gluconate] 99 MG Tablet.Er) PO SCH (09:17)
[2020-07-21] MEDS: INSULIN ASPART (NovoLOG) 100 UNIT/ML VIAL SQ SCH ×7 (09:18→20:50)
[2020-07-21] MEDS: INSULIN DETEMIR (LEVEMIR) 100 UNIT/ML SYR SQ SCH (09:18)
[2020-07-21] MEDS: BUMETANIDE 1 MG TAB PO SCH (10:06)
[2020-07-21 11:49] LABS: Basophils # (A) 0.02 X 10*3/uL (0.00-0.10); Basophils % (A) 0.1 %; Eosinophils # (A) 0.01 X 10*3/uL (0.04-0.35); Eosinophils % (A) 0.1 %; HCT 34.7 % (37.2-46.3); HGB 10.2 g/dL (12.0-15.0); Lymphocytes # (A) 0.38 X 10*3/uL (0.90-5.00); Lymphocytes % (A) 2.3 %; MCH 21.8 pg (27.0-32.0); MCHC 29.4 g/dL (32.0-37.0); MCV 74.1 fL (80.0-97.0); Mean Platelet Volume 9.5 fL (9.5-12.2); Monocytes # (A) 0.32 X 10*3/uL (0.20-1.00); Neutrophils # (A) 15.41 X 10*3/uL (1.80-7.70); Neutrophils % (A) 94.8 %; Platelet Count 143 X 10*3/uL (140-440); RBC 4.68 X 10*6/uL (4.10-5.20); RDW 17.6 % (11.5-14.5); WBC 16.25 X 10*3/uL (4.50-10.00)
[2020-07-21 12:03] LABS: Glucose,Whole Blood 323 mg/dL (75-99)
[2020-07-21 12:06] LABS: African American GFR (CKD) 85.4 (60.0-200.0); Anion Gap 11.4 mmol/L (4.00-12.00); Carbon Dioxide 27.6 mmol/L (21.6-31.8); Non-African American GFR(CKD) 73.7 (60.0-200.0); Potassium 3.8 mmol/L (3.5-5.5)
--- NOTE | 2020-07-21 12:11 | P.PN ---
Subjective Progress Note Date: 07/21/20 74-year-old morbidly obese female one of my office patient with past medical history of A. fib with RVR, history of acute gastrointestinal bleed with anemia, history of type 2 diabetes, history of obstructive sleep apnea, mild reactive airway/COPD and mild diastolic congestive heart failure who has been seen in the office the last week for acute Covid, patient was diagnosed on the ended up going for monoclonal anti-body infusion on the . Patient called office with worsening symptoms was seen in virtual visit and was recommended to go to the hospital to be admitted. Patient has been having worsening dyspnea and shortness of breath along with severe hypoxia worsening persistent cough produ ctive of phlegm along with mild twinges of blood. Patient was seen at the emergency department her pulse ox was in the 80 percentile with a few breathing treatment along with 3 L of O2 her pulse ox was increased to the low 90. Patient chest x-ray showed severe interstitial pneumonitis. Her d-dimer was elevated and ended up going for CTA showed extensive ground glass pulmonary interstitial edema could be related to RDS no pleural effusion found at the time. Patient was started on steroids along with updraft treatment O2 will consult pulmonary admit patient to the hospital. 2/2: The patient states that she is feeling much better today. She states that she did not sleep well last night. She is found sitting up in recliner and appears to be comfortable and in no acute distress. She has been afebrile, heart rate 72, blood pressure 160/83, pulse ox 92-98% on 5 L nasal cannula. Consult in place from pulmonary medicine. Blood sugars are running in the 200s. WBC 8, hemoglobin 10.1. Repeat lactic acid 1.7. IV fluids will be discontinued. Patient is on her home dose of Bumex. 2/3: Patient has been afebrile, heart rate 79, blood pressure 162/69, pulse ox 93% on 10 L nasal cannula. Patient complains of shortness of breath and feeling cold. She continues to cough. WBC is 18.5, hemoglobin 10.4, electrolytes normal. Creatinine 0.9. Total bilirubin 0.9, AST 88, ALT 44, alkaline phosphatase 143, LDH 943, C reactive protein 6.6. Overall, inflammatory markers are improving. Patient has been seen by pulmonary medicine and is outside of the window for Remdesivir treatment. Colchicine was added 07/19:tates that she was unable to sleep all night. She was on a nonrebreather and she felt she had a panic attack. She states that she is normally claustrophobic. She is currently seen on 15 L with pulse ox of 91%. She appears to be comfortable at rest. She is complaining of dark brown sputum production. She is also having mild nosebleed with dried blood only. Blood sugars are running between 257-300. D-dimer 8.72. LDH and CRP are pending. Patient has been afebrile, heart rate 82, blood pressure 144/51. She will probably not be ready for discharge until Thursday. 07/20: Patient has developed increasing shortness of breath overnight. She is now requiring high flow nasal cannula and nonrebreather with pulse ox of 91-95%. She has been afebrile, heart rate 77, blood pressure 178/79. Blood sugars are running between 132 and 261. Convalescent plasma has been ordered by pulmonary medicine today. Steroids have been changed to Solu-Medrol 60 mg IV every 6 hour s. Lovenox increased to 70 mg subcu twice daily. Antibiotics in the form of Augmentin. 07/21: Patient states that she is feeling better compared to yesterday. She continues to be on 15 L high flow not nasal cannula and nonrebreather. We'll continue to attempt to wean. Receiving Bumex 2 mg IV. Continues to have lower extremity swelling bilaterally. Patient received 2 units of convalescent connor sma. She was complaining of dryness to bilateral nares. Flonase added. Patient remains afebrile, pulse rate 56, blood pressure 167/73, pulse ox 94% on nonrebreather and high flow oxygen. Discussed with patient's CODE STATUS. Patient states that she does not want to be intubated or have CPR performed. We will change her CODE STATUS to no code. REVIEW OF SYSTEMS CONSTITUTIONAL: Well-developed with moderate respiratory distress. Denies fevers. Denies chills. EYES: No icterus sclerae, no conjunctivitis. EARS, NOSE, MOUTH, THROAT, and FACE: No sore throat, lymphadenopathy, carotid bruits or deformity. RESPIRATORY: Moderate dyspnea and shortness of breath and cough. Dyspnea with exertion. Positive brown sputum production. CARDIOVASCULAR: Positive PND orthopnea palpitation with no angina. GASTROINTESTINAL: No Abd pain, Nausea or vomiting, no Diarrhea or constipation, No GI Bleed, no distention or masses. GENITOURINARY: Negative for Hematuria or UTI, no kidney stones. INTEGUMENT/BREAST: Negative for any muscular injury with mild osteoarthritis. Chronic edema. HEMATOLOGIC/LYMPHATIC: Negative for bleed or purpura. MUSCULOSKELTAL: Negative for Myalgia or arthralgia. Significant arthralgia and myalgia. NEURLOGICAL: No LOC, Sz or syncope, blurred vision dizziness or abnormality.. BEHAVIORAL/PSYCH: Negative. ENDOCRINE: Negative. PHYSICAL EXAMINATION General Appearance: Alert, cooperative, morbidly obese in no respiratory distress. Neck HEENT: Supple, no lymphadenopathy, no thyroid enlargement, no carotid bruits. Lungs: Decreased breath some bilateral especially the right lower base with fine rhonchi crackles and minimal expiratory wheezes. Positive accessory muscle usage Chest Wall: Decrease expansion with deep inspiration no tenderness and no deformity was found on exam, no costochondral pain or discomfort. Heart: Regular rate and rhythm, S1, S2 positive systolic murmur with S3. Back: Symmetric, no curvature, ROM normal, no CVA tenderness. Abdomen: Soft, non-tender, bowel sounds active all four quadrants, no masses, no organomegaly. Extremities: 1+ edema and decreased pulses bilaterally. Pulses: 1+ and symmetric. Skin: Skin color, texture, tugor normal, no rashes or lesions. Neurologic: Alert oriented x3 cranial nerves II through XII intact, no motor deficit, no abnormal balance or gait. ASSESSMENT AND PLAN 1 acute hypoxic respiratory failure secondary to acute Covid pneumonitis with worsening symptoms. Consult with pulmonary medicine. Continue Solu-Medrol 60 mg IV every 6 hours, convalescent plasma, Augmentin, vitamin C, vitamin D, colchicine, oxygen support, lovenox increased to 70 mg twice daily. bumex 1mg iv 2 acute Covid pneumonitis with worsening symptoms. Continue as in #1. 3 COPD continue albuterol inhaler. 4. Paroxysmal atrial fibrillation, unable to tolerate anticoagulation secondary to acute GI bleed, continue metoprolol 12.5 mg twice daily and flecainide 50 mg twice a day. 5 type 2 diabetes, uncontrolled with hyperglycemia secondary to steroids. Continue Accu-Chek with sliding scales coverage continue Lantus at 45 units daily and still on Januvia. And scheduled NovoLog 3u with meals. 6 chronic diastolic heart failure. Continue Bumex 1 mg daily, Lopressor. 7 peptic ulcer disease and GI prophylaxis: Continue patient on pantoprazole 40 mg daily. 8 chronic anemia: Remain on iron supplement and multivitamins no need for transfusion. 9 mild hyponatremia: Most likely SIADH from pneumonia will continue mild gentle hydration repeat chemistry in the next 24 hours. 10 DVT prophylaxis: Patient will be on Lovenox 40 mg subcutaneous daily. 11 GI prophylaxis: Will be on pantoprazole. CODE STATUS: No Code DISCHARGE PLAN Most likely home next week. Patient may require home oxygen. Impression and plan of care have been directed as dictated by the signing physician. Mirian Phillips nurse practitioner acting as scribe for signing physician. Objective - Vital Signs Vital signs: Vital Signs Temp 98 F 07/21/20 10:06 Pulse 92 07/21/20 10:06 Resp 18 07/21/20 10:06 BP 167/73 07/21/20 10:06 Pulse Ox 94 L 07/21/20 10:06 Intake & Output 07/20/20 07/21/20 07/21/20 18:59 06:59 18:59 Intake Total 0 211 600 Output Total 600 700 Balance 0 -389 -100 Weight 140.614 kg 142 kg Intake: Oral 600 Blood Product 0 211 Ffp Pher Conval Covid19 0 211 Acda 2 Unit [id number] Output: Urine 600 700 Other: Voiding Method Bedside Commode External Catheter # Voids 3 # Bowel Movements 3 - Labs CBC & Chem 7: 07/21/20 07:57 07/21/20 07:57 Labs: Abnormal Lab Results - Last 24 Hours (Table) 07/20/20 07/20/20 07/21/20 Range/Units 16:49 20:26 07:02 WBC (4.50-10.00) X 10*3/uL Hgb (12.0-15.0) g/dL Hct (37.2-46.3) % MCV (80.0-97.0) fL MCH (27.0-32.0) pg MCHC (32.0-37.0) g/dL RDW (11.5-14.5) % Immature Gran # (0.00-0.04) X 10*3/uL Neutrophils # (1.80-7.70) X 10*3/uL Lymphocytes # (0.90-5.00) X 10*3/uL Eosinophils # (0.04-0.35) X 10*3/uL BUN (9.0-27.0) mg/dL BUN/Creatinine Ratio (12.00-20.00) Ratio Glucose (70-110) mg/dL POC Glucose (mg/dL) 203 H 292 H 244 H (75-99) mg/dL Calcium (8.7-10.3) mg/dL 07/21/20 07/21/20 07/21/20 Range/Units 07:57 07:57 11:59 WBC 16.25 H (4.50-10.00) X 10*3/uL Hgb 10.2 L (12.0-15.0) g/dL Hct 34.7 L (37.2-46.3) % MCV 74.1 L (80.0-97.0) fL MCH 21.8 L (27.0-32.0) pg MCHC 29.4 L (32.0-37.0) g/dL RDW 17.6 H (11.5-14.5) % Immature Gran # 0.11 H (0.00-0.04) X 10*3/uL Neutrophils # 15.41 H (1.80-7.70) X 10*3/uL Lymphocytes # 0.38 L (0.90-5.00) X 10*3/uL Eosinophils # 0.01 L (0.04-0.35) X 10*3/uL BUN 28.0 H (9.0-27.0) mg/dL BUN/Creatinine Ratio 35.00 H (12.00-20.00) Ratio Glucose 230 H (70-110) mg/dL POC Glucose (mg/dL) 323 H (75-99) mg/dL Calcium 8.0 L (8.7-10.3) mg/dL Microbiology - Last 24 Hours (Table) 07/16/20 16:42 Blood Culture Gram Stain - Final Blood Blood Culture - Final Coagulase Negative Staph 07/16/20 Unknown Blood Culture - Preliminary Blood No Growth after 96 hours
[2020-07-21] MEDS: FLUTICASONE 50MCG/SPRAY NASAL 16GM EA NOSTRIL SCH (13:32)
--- NOTE | 2020-07-21 13:51 | P.PN ---
Subjective Progress Note Date: 07/21/20 Principal diagnosis: CoVID 19 pneumonia 74-year-old female who was seen in the emergency department on 07/16/2020, at 1535. The patient presented with complaints of shortness of breath. The patient has a history of atrial fibrillation, obesity, congestive heart failure, and diabetes. She apparently was diagnosed with COVID 19 infection on July 09. Prior to being tested positive, the patient had 2 weeks of what she describes as a head cold. She started taking vitamins, and Decadron. More recently, she's been getting progressively worse as it relates to her shortness of breath, which now occurs on any activity. She does have some nausea, but denies any vomiting or diarrhea. She denies any chest pain. She denies any genitourinary complaints and lower extremity edema. Apparently her family doctor recommended that she come into the emergency room to be evaluated. A chest x-ray reveals some mild pulmonary interstitial pneumonia, and the CT angiogram revealed no evidence of any central or large pulmonary emboli, but did show extensive groundglass pulmonary interstitial infiltrates, consistent with her diagnosis of COVID19 pneumonia. Unfortunately, she is beyond the window for remdesivir. Currently, she is on 5 L nasal cannula, and her saturations are 99%. Her respiratory rate is 20, and her temperature is 97.6F. Blood pressure is good and heart rate is 71 bpm. Her current white count is 8.09, hemoglobin 10.1, hematocrit 34.7, and platelet count 137,000. Sodium is 135, potassium 4.9, chlorides 102, CO2 25, anion gap 8, BUN 17, and creatinine 0.8. D-dimer is 1.21, ferritin is 624, LDH is 1468, and C-reactive protein is 139. N-terminal proBNP was 1970. Pro-calcitonin level was 0.20. On 07/18/2020 patient seen in follow-up on medical floor, she is currently on 11 L of oxygen, she is awake and alert, she said nobody into the bed, apparently earlier she felt a little dizzy, she feels fatigued, be in no acute distress. Today's labs have been reviewed, showing white blood cell count of 18.5, hemoglobin is 10.4, his inflammatory markers are trending down, LDH is down to 943, CRP is down to 6.6, pro calcitonin level was 0.20. Continues on prophylactic dose of Lovenox, IV Decadron 6 mg daily, colchicine, and zinc On 07/19/2020 patient seen in follow-up on medical floor. She is currently up to 2 L of oxygen, her pulse ox is 91-94%, she states she feels better but she is requiring more oxygen, she states she is coughing up some phlegm. Today's chest x-ray has been reviewed showing central vascularity and interstitial increased, bilateral groundglass opacity within the lungs. And there is persistent elevation of the right hemidiaphragm. Patient seems to have increased edema in her lower extremities, she is currently on a daily dose of oral Bumex 1 mg daily, her lung sounds positive for scattered rhonchi. We will add empiric antibiotics, will afternoon dose of oral Bumex and obtain follow-up chest x-ray tomorrow. Physically she states she is feeling better, she is able to clear some phlegm. On 07/20/2020 patient seen in follow-up on medical floor, her oxygen requirements are continuously increasing, currently up to 15 L of oxygen per high flow nasal cannula and partial nonrebreather and her pulse ox is between 91-95%, afebrile. She is more dyspneic today, her lower extremities remain swollen, we did give the patient a dose of diuretics yesterday, however her neck fluid balance is very difficult to estimate. Her inflammatory markers have been reviewed, and pH is down to 780, and CRP is at 9.4, pro calcitonin level has decreased and is down to 0.12, however d-dimer has trended down and is up to 8.72, and we will adjust the dose of Lovenox to 0.5 mg/kg of body weight twice daily. Based Effexor has been reviewed showing worsening airspace disease, pneumonia and pulmonary edema. The patient is seen today 07/21/2020 in follow-up on the regular medical floor. She is currently sitting up in a chair at the bedside. Awake and alert in no acute distress. She is still requiring 15 L high flow nasal cannula along with 15 L partial rebreather mask. O2 saturations in the low 90s. She is afebrile. She has received 1 unit of convalescent plasma. White count 16.2. Hemoglobin 10.2. Lymphocytes 0.3. Sodium 138. Potassium 3.8. Creatinine 0.8. She is on antibiotics in the form of Augmentin. Continue on vitamin supplements. Remains on colchicine, IV Solu-Medrol, Lovenox. Objective - Vital Signs Vital signs: Vital Signs Temp 98 F 07/21/20 10:06 Pulse 92 07/21/20 10:06 Resp 18 07/21/20 10:06 BP 167/73 07/21/20 10:06 Pulse Ox 94 L 07/21/20 10:06 Intake & Output 07/20/20 07/21/20 07/21/20 18:59 06:59 18:59 Intake Total 0 211 600 Output Total 600 700 Balance 0 -389 -100 Weight 140.614 kg 142 kg Intake: Oral 600 Blood Product 0 211 Ffp Pher Conval Covid19 0 211 Acda 2 Unit [id number] Output: Urine 600 700 Other: Voiding Method Bedside Commode External Catheter # Voids 3 # Bowel Movements 3 - Exam GENERAL EXAM: Alert, very pleasant, obese 74-year-old female patient 15 L of oxygen to partial nonrebreather mask, breathing is mildly to moderately labored HEAD: Normocephalic/atraumatic. EYES: Normal reaction of pupils, equal size. Conjunctiva pink, sclera white. NOSE: Clear with pink turbinates. THROAT: No erythema or exudates. NECK: No masses, no JVD, no thyroid enlargement, no adenopathy. CHEST: No chest wall deformity. Symmetrical expansion. LUNGS: Equal air entry with bilateral scattered rhonchi CVS: Regular rate and rhythm, normal S1 and S2, no gallops, no murmurs, no rubs ABDOMEN: Soft, nontender. No hepatosplenomegaly, normal bowel sounds, no guarding or rigidity. EXTREMITIES: No clubbing, no edema, no cyanosis, 2+ pulses and upper and lower extremities. MUSCULOSKELETAL: Muscle strength and tone normal. SPINE: No scoliosis or deformity SKIN: No rashes CENTRAL NERVOUS SYSTEM: Alert and oriented -3. No focal deficits, tone is normal in all 4 extremities. PSYCHIATRIC: Alert and oriented -3. Appropriate affect. Intact judgment and insight. - Labs CBC & Chem 7: 07/21/20 07:57 07/21/20 07:57 Labs: Abnormal Lab Results - Last 24 Hours (Table) 07/20/20 07/20/20 07/21/20 Range/Units 16:49 20:26 07:02 WBC (4.50-10.00) X 10*3/uL Hgb (12.0-15.0) g/dL Hct (37.2-46.3) % MCV (80.0-97.0) fL MCH (27.0-32.0) pg MCHC (32.0-37.0) g/dL RDW (11.5-14.5) % Immature Gran # (0.00-0.04) X 10*3/uL Neutrophils # (1.80-7.70) X 10*3/uL Lymphocytes # (0.90-5.00) X 10*3/uL Eosinophils # (0.04-0.35) X 10*3/uL BUN (9.0-27.0) mg/dL BUN/Creatinine Ratio (12.00-20.00) Ratio Glucose (70-110) mg/dL POC Glucose (mg/dL) 203 H 292 H 244 H (75-99) mg/dL Calcium (8.7-10.3) mg/dL 07/21/20 07/21/20 07/21/20 Range/Units 07:57 07:57 11:59 WBC 16.25 H (4.50-10.00) X 10*3/uL Hgb 10.2 L (12.0-15.0) g/dL Hct 34.7 L (37.2-46.3) % MCV 74.1 L (80.0-97.0) fL MCH 21.8 L (27.0-32.0) pg MCHC 29.4 L (32.0-37.0) g/dL RDW 17.6 H (11.5-14.5) % Immature Gran # 0.11 H (0.00-0.04) X 10*3/uL Neutrophils # 15.41 H (1.80-7.70) X 10*3/uL Lymphocytes # 0.38 L (0.90-5.00) X 10*3/uL Eosinophils # 0.01 L (0.04-0.35) X 10*3/uL BUN 28.0 H (9.0-27.0) mg/dL BUN/Creatinine Ratio 35.00 H (12.00-20.00) Ratio Glucose 230 H (70-110) mg/dL POC Glucose (mg/dL) 323 H (75-99) mg/dL Calcium 8.0 L (8.7-10.3) mg/dL Microbiology - Last 24 Hours (Table) 07/16/20 16:42 Blood Culture Gram Stain - Final Blood Blood Culture - Final Coagulase Negative Staph 07/16/20 Unknown Blood Culture - Preliminary Blood No Growth after 96 hours Assessment and Plan Assessment: 1. Acute hypoxemic respiratory failure secondary to COVID 19 pneumonia. Currently on 15 L high flow nasal cannula along with 15 L partial rebreather mask 2 History of diabetes mellitus. 3 History of atrial fibrillation. 4 History of congestive heart failure. 5 History of osteoarthritis. 6 History of chronic back pain. 7 Status post lap band surgery for obesity. 8 History of deafness. Plan: The patient was seen and evaluated by Dr. Rome She is feeling slightly better today compared to yesterday Continues with high oxygen requirements We'll repeat chest x-ray inflammatory markers in the a.m. Continue current treatment plan She did receive 1 unit of convalescent plasma thus far Prognosis guarded She is a DO NOT RESUSCITATE/DO NOT INTUBATE CODE STATUS We will continue to follow I, the cosigning physician, performed a history & physical examination of the patient. Lungs sounds bilateral scattered rhonchi. Maintaining good O2 saturations in the 90s on 2 L high flow nasal cannula, 15 L her she'll rebreather mask I discussed the assessment and plan of care with my nurse practitioner, Luisa Lubin. I attest to the above note as dictated by her.
[2020-07-21 16:36] LABS: Glucose,Whole Blood 284 mg/dL (75-99)
[2020-07-21 20:45] LABS: Glucose,Whole Blood 180 mg/dL (75-99)
[2020-07-21] MEDS: BUMETANIDE 0.25 MG/ML 4 ML VIAL IVP SCH (20:51)
[2020-07-21] MEDS: LINAGLIPTIN 5 MG TABLET PO SCH (20:51)
[2020-07-22] MEDS: methylPREDNISolone SOD SUCCI 125 MG/2 ML VIAL IV SCH ×3 (05:42→17:50)
[2020-07-22 07:10] LABS: Glucose,Whole Blood 133 mg/dL (75-99)
[2020-07-22] MEDS: INSULIN DETEMIR (LEVEMIR) 100 UNIT/ML SYR SQ SCH (07:15)
--- NOTE | 2020-07-22 07:31 | XR ---
EXAMINATION TYPE: XR chest 1V portable DATE OF EXAM: 07/22/2020 HISTORY: Shortness of breath. COMPARISON: July 20, 2020 TECHNIQUE: Single view of the chest is submitted. FINDINGS: Demonstrated are scattered senescent parenchymal change. Bilateral airspace infiltrates persist although there is interval improvement. Continued follow-up is advised. The heart is stable. Hilar and mediastinal structures are within normal limits. Degenerative changes are seen of the dorsal spine. IMPRESSION: 1. Bilateral airspace infiltrates persist although there is interval improvement. Continued follow-u p is advised.
[2020-07-22] MEDS: ALBUTEROL HFA INHALER INHALATION PRN ×4 (07:36→19:48)
[2020-07-22] MEDS: INSULIN ASPART (NovoLOG) 100 UNIT/ML VIAL SQ SCH ×7 (08:48→21:59)
[2020-07-22] MEDS: BUMETANIDE 0.25 MG/ML 4 ML VIAL IVP SCH ×2 (08:49→21:59)
[2020-07-22] MEDS: FLECAINIDE 50 MG TAB PO SCH ×2 (08:50→21:59)
[2020-07-22] MEDS: METOPROLOL TARTRATE 12.5 MG TAB PO SCH (08:50)
[2020-07-22] MEDS: AMOXIC-POT CLAV 875-125MG 1 EACH TAB PO SCH ×2 (08:50→21:59)
[2020-07-22] MEDS: COLCHICINE 0.6 MG EACH PO SCH ×2 (08:50→21:59)
[2020-07-22] MEDS: ASCORBIC ACID 500 MG TAB PO SCH (08:50)
[2020-07-22] MEDS: NON FORMULARY DRUG (Potassium Gluconate [Potassium Gluconate] 99 MG Tablet.Er) PO SCH (08:50)
[2020-07-22] MEDS: ZINC SULFATE 220 MG CAP PO SCH (08:50)
[2020-07-22] MEDS: PANTOPRAZOLE 40 MG TABLET PO SCH ×2 (08:50→22:00)
[2020-07-22] MEDS: CHOLECALCIFEROL 25 MCG (1000 IU) TABLET PO SCH (08:50)
[2020-07-22] MEDS: ENOXAPARIN 80 MG/0.8 ML SYRINGE SQ SCH ×2 (08:51→21:59)
[2020-07-22 11:12] LABS: C Reactive Protein 3.3 mg/dL (0.0-0.8)
--- NOTE | 2020-07-22 11:31 | P.PN ---
Subjective Progress Note Date: 07/22/20 74-year-old morbidly obese female one of my office patient with past medical history of A. fib with RVR, history of acute gastrointestinal bleed with anemia, history of type 2 diabetes, history of obstructive sleep apnea, mild reactive airway/COPD and mild diastolic congestive heart failure who has been seen in the office the last week for acute Covid, patient was diagnosed on the ended up going for monoclonal anti-body infusion on the . Patient called office with worsening symptoms was seen in virtual visit and was recommended to go to the hospital to be admitted. Patient has been having worsening dyspnea and shortness of breath along with severe hypoxia worsening persistent cough produ ctive of phlegm along with mild twinges of blood. Patient was seen at the emergency department her pulse ox was in the 80 percentile with a few breathing treatment along with 3 L of O2 her pulse ox was increased to the low 90. Patient chest x-ray showed severe interstitial pneumonitis. Her d-dimer was elevated and ended up going for CTA showed extensive ground glass pulmonary interstitial edema could be related to RDS no pleural effusion found at the time. Patient was started on steroids along with updraft treatment O2 will consult pulmonary admit patient to the hospital. 2/2: The patient states that she is feeling much better today. She states that she did not sleep well last night. She is found sitting up in recliner and appears to be comfortable and in no acute distress. She has been afebrile, heart rate 72, blood pressure 160/83, pulse ox 92-98% on 5 L nasal cannula. Consult in place from pulmonary medicine. Blood sugars are running in the 200s. WBC 8, hemoglobin 10.1. Repeat lactic acid 1.7. IV fluids will be discontinued. Patient is on her home dose of Bumex. 2/3: Patient has been afebrile, heart rate 79, blood pressure 162/69, pulse ox 93% on 10 L nasal cannula. Patient complains of shortness of breath and feeling cold. She continues to cough. WBC is 18.5, hemoglobin 10.4, electrolytes normal. Creatinine 0.9. Total bilirubin 0.9, AST 88, ALT 44, alkaline phosphatase 143, LDH 943, C reactive protein 6.6. Overall, inflammatory markers are improving. Patient has been seen by pulmonary medicine and is outside of the window for Remdesivir treatment. Colchicine was added 07/19:tates that she was unable to sleep all night. She was on a nonrebreather and she felt she had a panic attack. She states that she is normally claustrophobic. She is currently seen on 15 L with pulse ox of 91%. She appears to be comfortable at rest. She is complaining of dark brown sputum production. She is also having mild nosebleed with dried blood only. Blood sugars are running between 257-300. D-dimer 8.72. LDH and CRP are pending. Patient has been afebrile, heart rate 82, blood pressure 144/51. She will probably not be ready for discharge until Thursday. 07/20: Patient has developed increasing shortness of breath overnight. She is now requiring high flow nasal cannula and nonrebreather with pulse ox of 91-95%. She has been afebrile, heart rate 77, blood pressure 178/79. Blood sugars are running between 132 and 261. Convalescent plasma has been ordered by pulmonary medicine today. Steroids have been changed to Solu-Medrol 60 mg IV every 6 hour s. Lovenox increased to 70 mg subcu twice daily. Antibiotics in the form of Augmentin. 07/21: Patient states that she is feeling better compared to yesterday. She continues to be on 15 L high flow not nasal cannula and nonrebreather. We'll continue to attempt to wean. Receiving Bumex 2 mg IV. Continues to have lower extremity swelling bilaterally. Patient received 2 units of convalescent connor sma. She was complaining of dryness to bilateral nares. Flonase added. Patient remains afebrile, pulse rate 56, blood pressure 167/73, pulse ox 94% on nonrebreather and high flow oxygen. Discussed with patient's CODE STATUS. Patient states that she does not want to be intubated or have CPR performed. We will change her CODE STATUS to no code. 07/22: Patient is found sitting up in chair continue to utilize 15 L of high flow oxygen be significantly cannula nonrebreather pulse oxing 98%. Patient states that she is feeling better able to breathe easier. She has been having diarrhea for the past few days 3-4 episodes yesterday and only one today. Patient denies any abdominal discomfort or blood in stool. She is currently on Augmentin. We will do stool cultures including C. diff. REVIEW OF SYSTEMS CONSTITUTIONAL: Well-developed with moderate respiratory distress. Denies fevers. Denies chills. EYES: No icterus sclerae, no conjunctivitis. EARS, NOSE, MOUTH, THROAT, and FACE: No sore throat, lymphadenopathy, carotid bruits or deformity. RESPIRATORY: Moderate dyspnea and shortness of breath and cough. Dyspnea with exertion. Positive brown sputum production. CARDIOVASCULAR: Positive PND orthopnea palpitation with no angina. GASTROINTESTINAL: No Abd pain, Nausea or vomiting, no Diarrhea or constipation, No GI Bleed, no distention or masses. GENITOURINARY: Negative for Hematuria or UTI, no kidney stones. INTEGUMENT/BREAST: Negative for any muscular injury with mild osteoarthritis. Chronic edema. HEMATOLOGIC/LYMPHATIC: Negative for bleed or purpura. MUSCULOSKELTAL: Negative for Myalgia or arthralgia. Significant arthralgia and myalgia. NEURLOGICAL: No LOC, Sz or syncope, blurred vision dizziness or abnormality.. BEHAVIORAL/PSYCH: Negative. ENDOCRINE: Negative. PHYSICAL EXAMINATION General Appearance: Alert, cooperative, morbidly obese in no respiratory distress. Neck HEENT: Supple, no lymphadenopathy, no thyroid enlargement, no carotid bruits. Lungs: Decreased breath some bilateral especially the right lower base with fine rhonchi crackles and minimal expiratory wheezes. Positive accessory muscle usa ge Chest Wall: Decrease expansion with deep inspiration no tenderness and no deformity was found on exam, no costochondral pain or discomfort. Heart: Regular rate and rhythm, S1, S2 positive systolic murmur with S3. Back: Symmetric, no curvature, ROM normal, no CVA tenderness. Abdomen: Soft, non-tender, bowel sounds active all four quadrants, no masses, no organomegaly. Extremities: 1+ edema and decreased pulses bilaterally. Pulses: 1+ and symmetric. Skin: Skin color, texture, tugor normal, no rashes or lesions. Neurologic: Alert oriented x3 cranial nerves II through XII intact, no motor deficit, no abnormal balance or gait. ASSESSMENT AND PLAN 1 acute hypoxic respiratory failure secondary to acute Covid pneumonitis with worsening symptoms. Consult with pulmonary medicine. Continue Solu-Medrol 60 mg IV every 6 hours, convalescent plasma, Augmentin, vitamin C, vitamin D, colchicine, oxygen support, lovenox increased to 70 mg twice daily. bumex 1mg iv 2 acute Covid pneumonitis with worsening symptoms. Continue as in #1. 3 COPD continue albuterol inhaler. 4. Paroxysmal atrial fibrillation, unable to tolerate anticoagulation secondary to acute GI bleed, continue metoprolol 12.5 mg twice daily and flecainide 50 mg twice a day. 5 type 2 diabetes, uncontrolled with hyperglycemia secondary to steroids. Continue Accu-Chek with sliding scales coverage continue Lantus at 45 units daily and still on Januvia. And scheduled NovoLog 3u with meals. 6 chronic diastolic heart failure. Continue Bumex 1 mg daily, Lopressor. 7 peptic ulcer disease and GI prophylaxis: Continue patient on pantoprazole 40 mg daily. 8 chronic anemia: Remain on iron supplement and multivitamins no need for transfusion. 9 mild hyponatremia: Most likely SIADH from pneumonia will continue mild gentle hydration repeat chemistry in the next 24 hours. 10 DVT prophylaxis: Patient will be on Lovenox 40 mg subcutaneous daily. 11 GI prophylaxis: Will be on pantoprazole. 12. Diarrhea. Stool cultures including C. diff may be related to Augmentin. CODE STATUS: No Code DISCHARGE PLAN Most likely home next week. Patient may require home oxygen. Impression and plan of care have been directed as dictated by the signing physician. Mirian Phillips nurse practitioner acting as scribe for signing physician. Objective - Vital Signs Vital signs: Vital Signs Temp 97.8 F 07/22/20 06:00 Pulse 76 07/22/20 06:00 Resp 18 07/22/20 08:00 BP 160/70 07/22/20 06:00 Pulse Ox 98 07/22/20 06:00 Intake & Output 07/21/20 07/22/20 07/22/20 18:59 06:59 18:59 Intake Total 1200 Output Total 900 600 Balance 300 -600 Weight 142 kg 134.1 kg Intake: Oral 1200 Output: Urine 900 500 Stool 100 Other: Voiding Method Bedside Commode External Catheter # Voids 1 - Labs CBC & Chem 7: 07/21/20 07:57 07/21/20 07:57 Labs: Abnormal Lab Results - Last 24 Hours (Table) 07/21/20 07/21/20 07/21/20 Range/Units 07:57 07:57 11:59 WBC 16.25 H (4.50-10.00) X 10*3/uL Hgb 10.2 L (12.0-15.0) g/dL Hct 34.7 L (37.2-46.3) % MCV 74.1 L (80.0-97.0) fL MCH 21.8 L (27.0-32.0) pg MCHC 29.4 L (32.0-37.0) g/dL RDW 17.6 H (11.5-14.5) % Immature Gran # 0.11 H (0.00-0.04) X 10*3/uL Neutrophils # 15.41 H (1.80-7.70) X 10*3/uL Lymphocytes # 0.38 L (0.90-5.00) X 10*3/uL Eosinophils # 0.01 L (0.04-0.35) X 10*3/uL D-Dimer (<0.60) mg/L FEU BUN 28.0 H (9.0-27.0) mg/dL BUN/Creatinine Ratio 35.00 H (12.00-20.00) Ratio Glucose 230 H (70-110) mg/dL POC Glucose (mg/dL) 323 H (75-99) mg/dL Calcium 8.0 L (8.7-10.3) mg/dL Lactate Dehydrogenase (120-246) U/L C-Reactive Protein (0.0-0.8) mg/dL 07/21/20 07/21/20 07/22/20 Range/Units 16:27 20:43 05:33 WBC (4.50-10.00) X 10*3/uL Hgb (12.0-15.0) g/dL Hct (37.2-46.3) % MCV (80.0-97.0) fL MCH (27.0-32.0) pg MCHC (32.0-37.0) g/dL RDW (11.5-14.5) % Immature Gran # (0.00-0.04) X 10*3/uL Neutrophils # (1.80-7.70) X 10*3/uL Lymphocytes # (0.90-5.00) X 10*3/uL Eosinophils # (0.04-0.35) X 10*3/uL D-Dimer 7.56 H (<0.60) mg/L FEU BUN (9.0-27.0) mg/dL BUN/Creatinine Ratio (12.00-20.00) Ratio Glucose (70-110) mg/dL POC Glucose (mg/dL) 284 H 180 H (75-99) mg/dL Calcium (8.7-10.3) mg/dL Lactate Dehydrogenase (120-246) U/L C-Reactive Protein (0.0-0.8) mg/dL 07/22/20 07/22/20 Range/Units 05:33 07:08 WBC (4.50-10.00) X 10*3/uL Hgb (12.0-15.0) g/dL Hct (37.2-46.3) % MCV (80.0-97.0) fL MCH (27.0-32.0) pg MCHC (32.0-37.0) g/dL RDW (11.5-14.5) % Immature Gran # (0.00-0.04) X 10*3/uL Neutrophils # (1.80-7.70) X 10*3/uL Lymphocytes # (0.90-5.00) X 10*3/uL Eosinophils # (0.04-0.35) X 10*3/uL D-Dimer (<0.60) mg/L FEU BUN (9.0-27.0) mg/dL BUN/Creatinine Ratio (12.00-20.00) Ratio Glucose (70-110) mg/dL POC Glucose (mg/dL) 133 H (75-99) mg/dL Calcium (8.7-10.3) mg/dL Lactate Dehydrogenase 531 H (120-246) U/L C-Reactive Protein 3.3 H (0.0-0.8) mg/dL Microbiology - Last 24 Hours (Table) 07/16/20 Unknown Blood Culture - Preliminary Blood No Growth after 120 hours
[2020-07-22] MEDS: FLUTICASONE 50MCG/SPRAY NASAL 16GM EA NOSTRIL SCH (11:41)
[2020-07-22 12:18] LABS: Glucose,Whole Blood 184 mg/dL (75-99)
--- NOTE | 2020-07-22 13:20 | P.PN ---
Subjective Progress Note Date: 07/22/20 Principal diagnosis: CoVID 19 pneumonia 74-year-old female who was seen in the emergency department on 07/16/2020, at 1535. The patient presented with complaints of shortness of breath. The patient has a history of atrial fibrillation, obesity, congestive heart failure, and diabetes. She apparently was diagnosed with COVID 19 infection on July 09. Prior to being tested positive, the patient had 2 weeks of what she describes as a head cold. She started taking vitamins, and Decadron. More recently, she's been getting progressively worse as it relates to her shortness of breath, which now occurs on any activity. She does have some nausea, but denies any vomiting or diarrhea. She denies any chest pain. She denies any genitourinary complaints and lower extremity edema. Apparently her family doctor recommended that she come into the emergency room to be evaluated. A chest x-ray reveals some mild pulmonary interstitial pneumonia, and the CT angiogram revealed no evidence of any central or large pulmonary emboli, but did show extensive groundglass pulmonary interstitial infiltrates, consistent with her diagnosis of COVID19 pneumonia. Unfortunately, she is beyond the window for remdesivir. Currently, she is on 5 L nasal cannula, and her saturations are 99%. Her respiratory rate is 20, and her temperature is 97.6F. Blood pressure is good and heart rate is 71 bpm. Her current white count is 8.09, hemoglobin 10.1, hematocrit 34.7, and platelet count 137,000. Sodium is 135, potassium 4.9, chlorides 102, CO2 25, anion gap 8, BUN 17, and creatinine 0.8. D-dimer is 1.21, ferritin is 624, LDH is 1468, and C-reactive protein is 139. N-terminal proBNP was 1970. Pro-calcitonin level was 0.20. On 07/18/2020 patient seen in follow-up on medical floor, she is currently on 11 L of oxygen, she is awake and alert, she said nobody into the bed, apparently earlier she felt a little dizzy, she feels fatigued, be in no acute distress. Today's labs have been reviewed, showing white blood cell count of 18.5, hemoglobin is 10.4, his inflammatory markers are trending down, LDH is down to 943, CRP is down to 6.6, pro calcitonin level was 0.20. Continues on prophylactic dose of Lovenox, IV Decadron 6 mg daily, colchicine, and zinc On 07/19/2020 patient seen in follow-up on medical floor. She is currently up to 2 L of oxygen, her pulse ox is 91-94%, she states she feels better but she is requiring more oxygen, she states she is coughing up some phlegm. Today's chest x-ray has been reviewed showing central vascularity and interstitial increased, bilateral groundglass opacity within the lungs. And there is persistent elevation of the right hemidiaphragm. Patient seems to have increased edema in her lower extremities, she is currently on a daily dose of oral Bumex 1 mg daily, her lung sounds positive for scattered rhonchi. We will add empiric antibiotics, will afternoon dose of oral Bumex and obtain follow-up chest x-ray tomorrow. Physically she states she is feeling better, she is able to clear some phlegm. On 07/20/2020 patient seen in follow-up on medical floor, her oxygen requirements are continuously increasing, currently up to 15 L of oxygen per high flow nasal cannula and partial nonrebreather and her pulse ox is between 91-95%, afebrile. She is more dyspneic today, her lower extremities remain swollen, we did give the patient a dose of diuretics yesterday, however her neck fluid balance is very difficult to estimate. Her inflammatory markers have been reviewed, and pH is down to 780, and CRP is at 9.4, pro calcitonin level has decreased and is down to 0.12, however d-dimer has trended down and is up to 8.72, and we will adjust the dose of Lovenox to 0.5 mg/kg of body weight twice daily. Based Effexor has been reviewed showing worsening airspace disease, pneumonia and pulmonary edema. The patient is seen today 07/21/2020 in follow-up on the regular medical floor. She is currently sitting up in a chair at the bedside. Awake and alert in no acute distress. She is still requiring 15 L high flow nasal cannula along with 15 L partial rebreather mask. O2 saturations in the low 90s. She is afebrile. She has received 1 unit of convalescent plasma. White count 16.2. Hemoglobin 10.2. Lymphocytes 0.3. Sodium 138. Potassium 3.8. Creatinine 0.8. She is on antibiotics in the form of Augmentin. Continue on vitamin supplements. Remains on colchicine, IV Solu-Medrol, Lovenox. The patient is seen today 07/22/2020 in follow-up on the regular medical floor. She is awake and alert in no acute distress. Sitting up in a chair at the bedside. She is still requiring 15 L high flow nasal cannula along with a partial nonrebreather mask to maintain O2 saturations in the low 90s. Chest x-r ay continues to show bilateral airspace infiltrates however there is some interval improvement. She did receive 1 unit of convalescent plasma. D-dimer 7.56. LDH 531. C-reactive protein 3.3. She remains on colchicine, IV Solu- Medrol, Lovenox, vitamin supplements, Augmentin. Objective - Vital Signs Vital signs: Vital Signs Temp 97.9 F 07/22/20 09:48 Pulse 89 07/22/20 09:48 Resp 18 07/22/20 09:48 BP 162/70 07/22/20 09:48 Pulse Ox 92 L 07/22/20 09:48 Intake & Output 07/21/20 07/22/20 07/22/20 18:59 06:59 18:59 Intake Total 1200 Output Total 900 600 Balance 300 -600 Weight 142 kg 134.1 kg 134.1 kg Intake: Oral 1200 Output: Urine 900 500 Stool 100 Other: Voiding Method Bedside Commode External Catheter # Voids 1 - Exam GENERAL EXAM: Alert, very pleasant, obese 74-year-old female patient 15 L of oxy gen and partial nonrebreather mask, breathing is mildly to moderately labored HEAD: Normocephalic/atraumatic. EYES: Normal reaction of pupils, equal size. Conjunctiva pink, sclera white. NOSE: Clear with pink turbinates. THROAT: No erythema or exudates. NECK: No masses, no JVD, no thyroid enlargement, no adenopathy. CHEST: No chest wall deformity. Symmetrical expansion. LUNGS: Equal air entry with bilateral scattered rhonchi CVS: Regular rate and rhythm, normal S1 and S2, no gallops, no murmurs, no rubs ABDOMEN: Soft, nontender. No hepatosplenomegaly, normal bowel sounds, no guarding or rigidity. EXTREMITIES: No clubbing, no edema, no cyanosis, 2+ pulses and upper and lower extremities. MUSCULOSKELETAL: Muscle strength and tone normal. SPINE: No scoliosis or deformity SKIN: No rashes CENTRAL NERVOUS SYSTEM: Alert and oriented -3. No focal deficits, tone is normal in all 4 extremities. PSYCHIATRIC: Alert and oriented -3. Appropriate affect. Intact judgment and insight. - Labs CBC & Chem 7: 07/21/20 07:57 07/21/20 07:57 Labs: Abnormal Lab Results - Last 24 Hours (Table) 07/21/20 07/21/20 07/22/20 Range/Units 16:27 20:43 05:33 D-Dimer 7.56 H (<0.60) mg/L FEU POC Glucose (mg/dL) 284 H 180 H (75-99) mg/dL Lactate Dehydrogenase (120-246) U/L C-Reactive Protein (0.0-0.8) mg/dL 07/22/20 07/22/20 07/22/20 Range/Units 05:33 07:08 12:17 D-Dimer (<0.60) mg/L FEU POC Glucose (mg/dL) 133 H 184 H (75-99) mg/dL Lactate Dehydrogenase 531 H (120-246) U/L C-Reactive Protein 3.3 H (0.0-0.8) mg/dL Microbiology - Last 24 Hours (Table) 07/16/20 Unknown Blood Culture - Preliminary Blood No Growth after 120 hours Assessment and Plan Assessment: 1. Acute hypoxemic respiratory failure secondary to COVID 19 pneumonia. Currently on 15 L high flow nasal cannula along with partial rebreather mask 2 History of diabetes mellitus. 3 History of atrial fibrillation. 4 History of congestive heart failure. 5 History of osteoarthritis. 6 History of chronic back pain. 7 Status post lap band surgery for obesity. 8 History of deafness. Plan: The patient was seen and evaluated by Dr. Rome Chest x-ray showing slight improvement Inflammatory markers trending down She is feeling slightly better today Continues with high oxygen requirements Continue current treatment plan Order a second unit of convalescent plasma Prognosis guarded She is a DO NOT RESUSCITATE/DO NOT INTUBATE CODE STATUS We will continue to follow I, the cosigning physician, performed a history & physical examination of the patient. Lungs sounds bilateral scattered rhonchi. Maintaining good O2 saturations in the 90s on 15 L high flow nasal cannula and partial nonrebreather mask I discussed the assessment and plan of care with my nurse practitioner, Luisa Lubin. I attest to the above note as dictated by her.
[2020-07-22 17:05] LABS: Glucose,Whole Blood 290 mg/dL (75-99)
[2020-07-22] MEDS: CHOLESTYRAMINE (WITH SUGAR) 4 GM PACKET PO SCH (17:50)
[2020-07-22 20:22] LABS: Glucose,Whole Blood 278 mg/dL (75-99)
[2020-07-22] MEDS: LINAGLIPTIN 5 MG TABLET PO SCH (22:00)
[2020-07-23] MEDS: methylPREDNISolone SOD SUCCI 125 MG/2 ML VIAL IV SCH ×5 (00:08→23:58)
[2020-07-23 07:14] LABS: Glucose,Whole Blood 339 mg/dL (75-99)
[2020-07-23] MEDS: INSULIN DETEMIR (LEVEMIR) 100 UNIT/ML SYR SQ SCH (07:27)
[2020-07-23] MEDS: INSULIN ASPART (NovoLOG) 100 UNIT/ML VIAL SQ SCH ×7 (07:27→21:09)
[2020-07-23] MEDS: CHOLECALCIFEROL 25 MCG (1000 IU) TABLET PO SCH (07:28)
[2020-07-23] MEDS: COLCHICINE 0.6 MG EACH PO SCH ×2 (07:28→21:08)
[2020-07-23] MEDS: METOPROLOL TARTRATE 12.5 MG TAB PO SCH (07:28)
[2020-07-23] MEDS: ASCORBIC ACID 500 MG TAB PO SCH (07:29)
[2020-07-23] MEDS: AMOXIC-POT CLAV 875-125MG 1 EACH TAB PO SCH ×2 (07:29→21:06)
[2020-07-23] MEDS: ENOXAPARIN 80 MG/0.8 ML SYRINGE SQ SCH ×2 (07:29→21:08)
[2020-07-23] MEDS: BUMETANIDE 0.25 MG/ML 4 ML VIAL IVP SCH ×2 (07:29→21:07)
[2020-07-23] MEDS: ZINC SULFATE 220 MG CAP PO SCH (07:29)
[2020-07-23] MEDS: PANTOPRAZOLE 40 MG TABLET PO SCH ×2 (07:29→21:05)
[2020-07-23] MEDS: FLECAINIDE 50 MG TAB PO SCH ×2 (07:30→21:09)
[2020-07-23] MEDS: FLUTICASONE 50MCG/SPRAY NASAL 16GM EA NOSTRIL SCH (07:31)
[2020-07-23] MEDS: NON FORMULARY DRUG (Potassium Gluconate [Potassium Gluconate] 99 MG Tablet.Er) PO SCH (07:46)
[2020-07-23] MEDS: ALBUTEROL HFA INHALER INHALATION PRN ×3 (08:26→16:59)
[2020-07-23 11:15] LABS: Glucose,Whole Blood 193 mg/dL (75-99)
[2020-07-23] MEDS: CHOLESTYRAMINE (WITH SUGAR) 4 GM PACKET PO SCH ×2 (11:59→17:21)
--- NOTE | 2020-07-23 14:38 | P.PN ---
Subjective Progress Note Date: 07/23/20 74-year-old female who was seen in the emergency department on 07/16/2020, at 1535. The patient presented with complaints of shortness of breath. The patient has a history of atrial fibrillation, obesity, congestive heart failure, and diabetes. She apparently was diagnosed with COVID 19 infection on July 09. Prior to being tested positive, the patient had 2 weeks of what she describes as a head cold. She started taking vitamins, and Decadron. More recently, she's been getting progressively worse as it relates to her shortness of breath, which now occurs on any activity. She does have some nausea, but denies any vomiting or diarrhea. She denies any chest pain. She denies any genitourinary complaints and lower extremity edema. Apparently her family doctor recommended that she come into the emergency room to be evaluated. A chest x-ray reveals some mild pulmonary interstitial pneumonia, and the CT angiogram revealed no evidence of any central or large pulmonary emboli, but did show extensive groundglass pulmonary interstitial infiltrates, consistent with her diagnosis of COVID19 pneumonia. Unfortunately, she is beyond the window for remdesivir. Currently, she is on 5 L nasal cannula, and her saturations are 99%. Her respiratory rate is 20, and her temperature is 97.6F. Blood pressure is good and heart rate is 71 bpm. Her current white count is 8.09, hemoglobin 10.1, hematocrit 34.7, and platelet count 137,000. Sodium is 135, potassium 4.9, chlorides 102, CO2 25, anion gap 8, BUN 17, and creatinine 0.8. D-dimer is 1.21, ferritin is 624, LDH is 1468, and C-reactive protein is 139. N-terminal proBNP was 1970. Pro-calcitonin level was 0.20. On 07/18/2020 patient seen in follow-up on medical floor, she is currently on 11 L of oxygen, she is awake and alert, she said nobody into the bed, apparently earlier she felt a little dizzy, she feels fatigued, be in no acute distress. Today's labs have been reviewed, showing white blood cell count of 18.5, hemoglo bin is 10.4, his inflammatory markers are trending down, LDH is down to 943, CRP is down to 6.6, pro calcitonin level was 0.20. Continues on prophylactic dose of Lovenox, IV Decadron 6 mg daily, colchicine, and zinc On 07/19/2020 patient seen in follow-up on medical floor. She is currently up to 2 L of oxygen, her pulse ox is 91-94%, she states she feels better but she is requiring more oxygen, she states she is coughing up some phlegm. Today's chest x-ray has been reviewed showing central vascularity and interstitial increased, bilateral groundglass opacity within the lungs. And there is persistent elevation of the right hemidiaphragm. Patient seems to have increased edema in her lower extremities, she is currently on a daily dose of oral Bumex 1 mg daily, her lung sounds positive for scattered rhonchi. We will add empiric antibiotics, will afternoon dose of oral Bumex and obtain follow-up chest x-ray tomorrow. Physically she states she is feeling better, she is able to clear some phlegm. On 07/20/2020 patient seen in follow-up on medical floor, her oxygen requirements are continuously increasing, currently up to 15 L of oxygen per high flow nasal cannula and partial nonrebreather and her pulse ox is between 91-95%, afebrile. She is more dyspneic today, her lower extremities remain swollen, we did give the patient a dose of diuretics yesterday, however her neck fluid balance is very difficult to estimate. Her inflammatory markers have been reviewed, and pH is down to 780, and CRP is at 9.4, pro calcitonin level has decreased and is down to 0.12, however d-dimer has trended down and is up to 8.72, and we will adjust the dose of Lovenox to 0.5 mg/kg of body weight twice daily. Based Effexor has been reviewed showing worsening airspace disease, pneumonia and pulmonary edema. The patient is seen today 07/21/2020 in follow-up on the regular medical floor. She is currently sitting up in a chair at the bedside. Awake and alert in no acute distress. She is still requiring 15 L high flow nasal cannula along with 15 L partial rebreather mask. O2 saturations in the low 90s. She is afebrile. She has received 1 unit of convalescent plasma. White count 16.2. Hemoglobin 10.2. Lymphocytes 0.3. Sodium 138. Potassium 3.8. Creatinine 0.8. She is on antibiotics in the form of Augmentin. Continue on vitamin supplements. Remains on colchicine, IV Solu-Medrol, Lovenox. The patient is seen today 07/22/2020 in follow-up on the regular medical floor. She is awake and alert in no acute distress. Sitting up in a chair at the bedside. She is still requiring 15 L high flow nasal cannula along with a partial nonrebreather mask to maintain O2 saturations in the low 90s. Chest x- ray continues to show bilateral airspace infiltrates however there is some interval improvement. She did receive 1 unit of convalescent plasma. D-dimer 7.56. LDH 531. C-reactive protein 3.3. She remains on colchicine, IV Solu- Medrol, Lovenox, vitamin supplements, Augmentin. On 07/23/2020, the patient is being seen for a follow-up. The patient is doing well pH is essentially the same as yesterday. No worsening shortness of breath. She is off the nonrebreather facemask and she is utilizing on a 15 L of oxygen by nasal cannula. She is still currently receiving treatment for Covid 19. She received a dose of, less than plasma. She is also oncolchicine, IV Solu-Medrol, Lovenox, vitamin supplements, Augmentin. The patient's blood sugar is slightly elevated and they're being managed by sliding scale insulin coverage. She is also taking Levemir insulin 45 units daily in addition to Trajenda. The d-dimer is at 7.56. The patient is on Lovenox 70 mg subcu every 12 hours. She is also receiving Bumex 1 mg IV twice a day as diuretics. Objective - Vital Signs Vital signs: Vital Signs Temp 97.8 F 07/23/20 10:53 Pulse 79 07/23/20 10:53 Resp 20 07/23/20 10:53 BP 123/74 07/23/20 10:53 Pulse Ox 92 L 07/23/20 10:53 Intake & Output 07/22/20 07/23/20 07/23/20 18:59 06:59 18:59 Intake Total 500 213 Output Total 1800 1750 Balance -1800 -1250 213 Weight 134.1 kg 132.5 kg Intake: Oral 500 Blood Product 213 Ffp Pher Conval Covid19 213 Acda 2 Unit [id number] Output: Urine 1800 1450 Urine/Stool Mix 300 Other: Voiding Method Bedside Commode External Catheter # Voids 2 # Bowel Movements 1 3 - Exam GENERAL EXAM: Alert, very pleasant, obese 74-year-old female patient 15 L of oxygen and she is not experiencing any significant shortness of breath at rest HEAD: Normocephalic/atraumatic. EYES: Normal reaction of pupils, equal size. Conjunctiva pink, sclera white. NOSE: Clear with pink turbinates. THROAT: No erythema or exudates. NECK: No masses, no JVD, no thyroid enlargement, no adenopathy. CHEST: No chest wall deformity. Symmetrical expansion. LUNGS: Equal air entry with bilateral scattered rhonchi CVS: Regular rate and rhythm, normal S1 and S2, no gallops, no murmurs, no rubs ABDOMEN: Soft, nontender. No hepatosplenomegaly, normal bowel sounds, no guarding or rigidity. EXTREMITIES: No clubbing, no edema, no cyanosis, 2+ pulses and upper and lower extremities. MUSCULOSKELETAL: Muscle strength and tone normal. SPINE: No scoliosis or deformity SKIN: No rashes CENTRAL NERVOUS SYSTEM: Alert and oriented -3. No focal deficits, tone is normal in all 4 extremities. PSYCHIATRIC: Alert and oriented -3. Appropriate affect. Intact judgment and insight. - Labs CBC & Chem 7: 07/21/20 07:57 07/21/20 07:57 Labs: Abnormal Lab Results - Last 24 Hours (Table) 07/22/20 07/22/20 07/23/20 Range/Units 17:01 20:21 07:13 POC Glucose (mg/dL) 290 H 278 H 339 H (75-99) mg/dL 07/23/20 Range/Units 11:13 POC Glucose (mg/dL) 193 H (75-99) mg/dL Microbiology - Last 24 Hours (Table) 07/22/20 12:00 Stool Culture - Preliminary Stool 07/16/20 Unknown Blood Culture - Final Blood No Growth after 144 hours Assessment and Plan Plan: 1. Acute hypoxemic respiratory failure secondary to COVID 19 pneumonia. Curren tly on 15 L high flow nasal cannula along with partial rebreather mask 2 History of diabetes mellitus. 3 History of atrial fibrillation. 4 History of congestive heart failure. 5 History of osteoarthritis. 6 History of chronic back pain. 7 Status post lap band surgery for obesity. 8 History of deafness. Plan: Continue current treatment Repeat inflammatory markers in a.m. This is a chest x-ray in a.m. Malinda oxygenation gradually FiO2 to maintain a saturation above 90% Patient received a total of 2 units of, less than plasma Continue Lovenox 70 mg subcu every 12 hours Keep IV Solu Medrol 60 mg every 6 hours Blood sugar management with Lantus and sliding-scale coverage insulin We will follow
--- NOTE | 2020-07-23 14:38 | P.PN ---
Subjective Progress Note Date: 07/23/20 74-year-old morbidly obese female one of my office patient with past medical history of A. fib with RVR, history of acute gastrointestinal bleed with anemia, history of type 2 diabetes, history of obstructive sleep apnea, mild reactive airway/COPD and mild diastolic congestive heart failure who has been seen in the office the last week for acute Covid, patient was diagnosed on the ended up going for monoclonal anti-body infusion on the . Patient called office with worsening symptoms was seen in virtual visit and was recommended to go to the hospital to be admitted. Patient has been having worsening dyspnea and shortness of breath along with severe hypoxia worsening persistent cough prod uctive of phlegm along with mild twinges of blood. Patient was seen at the emergency department her pulse ox was in the 80 percentile with a few breathing treatment along with 3 L of O2 her pulse ox was increased to the low 90. Patient chest x-ray showed severe interstitial pneumonitis. Her d-dimer was elevated and ended up going for CTA showed extensive ground glass pulmonary interstitial edema could be related to RDS no pleural effusion found at the time. Patient was started on steroids along with updraft treatment O2 will consult pulmonary admit patient to the hospital. 2/2: The patient states that she is feeling much better today. She states that she did not sleep well last night. She is found sitting up in recliner and appears to be comfortable and in no acute distress. She has been afebrile, heart rate 72, blood pressure 160/83, pulse ox 92-98% on 5 L nasal cannula. Consult in place from pulmonary medicine. Blood sugars are running in the 200s. WBC 8, hemoglobin 10.1. Repeat lactic acid 1.7. IV fluids will be discontinued. Patient is on her home dose of Bumex. 2/3: Patient has been afebrile, heart rate 79, blood pressure 162/69, pulse ox 93% on 10 L nasal cannula. Patient complains of shortness of breath and feeling cold. She continues to cough. WBC is 18.5, hemoglobin 10.4, electrolytes normal. Creatinine 0.9. Total bilirubin 0.9, AST 88, ALT 44, alkaline phosphatase 143, LDH 943, C reactive protein 6.6. Overall, inflammatory markers are improving. Patient has been seen by pulmonary medicine and is outside of the window for Remdesivir treatment. Colchicine was added 07/19:tates that she was unable to sleep all night. She was on a nonrebreather and she felt she had a panic attack. She states that she is normally claustrophobic. She is currently seen on 15 L with pulse ox of 91%. She appears to be comfortable at rest. She is complaining of dark brown sputum production. She is also having mild nosebleed with dried blood only. Blood sugars are running between 257-300. D-dimer 8.72. LDH and CRP are pending. Patient has been afebrile, heart rate 82, blood pressure 144/51. She will probably not be ready for discharge until Thursday. 07/20: Patient has developed increasing shortness of breath overnight. She is now requiring high flow nasal cannula and nonrebreather with pulse ox of 91-95%. She has been afebrile, heart rate 77, blood pressure 178/79. Blood sugars are running between 132 and 261. Convalescent plasma has been ordered by pulmonary medicine today. Steroids have been changed to Solu-Medrol 60 mg IV every 6 melly rs. Lovenox increased to 70 mg subcu twice daily. Antibiotics in the form of Augmentin. 07/21: Patient states that she is feeling better compared to yesterday. She continues to be on 15 L high flow not nasal cannula and nonrebreather. We'll continue to attempt to wean. Receiving Bumex 2 mg IV. Continues to have lower extremity swelling bilaterally. Patient received [address] asma. She was complaining of dryness to bilateral nares. Flonase added. Patient remains afebrile, pulse rate 56, blood pressure 167/73, pulse ox 94% on nonrebreather and high flow oxygen. Discussed with patient's CODE STATUS. Patient states that she does not want to be intubated or have CPR performed. We will change her CODE STATUS to no code. 07/22: Patient is found sitting up in chair continue to utilize 15 L of high flow oxygen be significantly cannula nonrebreather pulse oxing 98%. Patient states that she is feeling better able to breathe easier. She has been having diarrhea for the past few days 3-4 episodes yesterday and only one today. Patient denies any abdominal discomfort or blood in stool. She is currently on Augmentin. We will do stool cultures including C. diff. 07/23: Patient remains on high flow nasal cannula 15 L with nonrebreather at her bedside. She is pulse oxing 91 and 94%. She's been afebrile, heart rate in the 70s, blood pressure 123/74. Blood sugars have been between 193 and 339. Anticipate need for oxygen at home. REVIEW OF SYSTEMS CONSTITUTIONAL: Well-developed with moderate respiratory distress. Denies fevers. Denies chills. EYES: No icterus sclerae, no conjunctivitis. EARS, NOSE, MOUTH, THROAT, and FACE: No sore throat, lymphadenopathy, carotid bruits or deformity. RESPIRATORY: Moderate dyspnea and shortness of breath and cough. Dyspnea with exertion. Positive brown sputum production. CARDIOVASCULAR: Positive PND orthopnea . Denies palpitation with no angina. GASTROINTESTINAL: No Abd pain, Nausea or vomiting, no Diarrhea or constipation, No GI Bleed, no distention or masses. GENITOURINARY: Negative for Hematuria or UTI, no kidney stones. INTEGUMENT/BREAST: Negative for any muscular injury with mild osteoarthritis. Chronic edema. HEMATOLOGIC/LYMPHATIC: Negative for bleed or purpura. MUSCULOSKELTAL: Negative for Myalgia or arthralgia. Significant arthralgia and myalgia. NEURLOGICAL: No LOC, Sz or syncope, blurred vision dizziness or abnormality.. BEHAVIORAL/PSYCH: Negative. ENDOCRINE: Negative. PHYSICAL EXAMINATION General Appearance: Alert, cooperative, morbidly obese in no respiratory distress. Patient is resting comfortably in chair. Neck HEENT: Supple, no lymphadenopathy, no thyroid enlargement, no carotid bruits. Lungs: Decreased breath some bilateral especially the right lower base with fine rhonchi crackles and minimal expiratory wheezes. Positive accessory muscle usage Chest Wall: Decrease expansion with deep inspiration no tenderness and no deformity was found on exam, no costochondral pain or discomfort. Heart: Regular rate and rhythm, S1, S2 positive systolic murmur with S3. Back: Symmetric, no curvature, ROM normal, no CVA tenderness. Abdomen: Soft, non-tender, bowel sounds active all four quadrants, no masses, no organomegaly. Extremities: 1+ edema and decreased pulses bilaterally. Pulses: 1+ and symmetric. Skin: Skin color, texture, tugor normal, no rashes or lesions. Neurologic: Alert oriented x3 cranial nerves II through XII intact, no motor deficit, no abnormal balance or gait. ASSESSMENT AND PLAN 1 acute hypoxic respiratory failure secondary to acute Covid pneumonitis with worsening symptoms. Consult with pulmonary medicine. Continue Solu-Medrol 60 mg IV every 6 hours, convalescent plasma, Augmentin, vitamin C, vitamin D, colchicine, oxygen support, lovenox increased to 70 mg twice daily. bumex 1mg iv twice daily. 2 acute Covid pneumonitis with worsening symptoms. Continue as in #1. 3 COPD continue albuterol inhaler. 4. Paroxysmal atrial fibrillation, unable to tolerate anticoagulation secondary to acute GI bleed, continue metoprolol 12.5 mg twice daily and flecainide 50 mg twice a day. 5 type 2 diabetes, uncontrolled with hyperglycemia secondary to steroids. Continue Accu-Chek with sliding scales coverage continue Lantus at 45 units daily and still on Januvia. And scheduled NovoLog 3u with meals. 6 chronic diastolic heart failure. Continue Bumex 1 mg daily, Lopressor. 7 peptic ulcer disease and GI prophylaxis: Continue patient on pantoprazole 40 mg daily. 8 chronic anemia: Remain on iron supplement and multivitamins no need for transfusion. 9 mild hyponatremia: Most likely SIADH from pneumonia will continue mild gentle hydration repeat chemistry in the next 24 hours. 10 DVT prophylaxis: Patient will be on Lovenox 40 mg subcutaneous daily. 11 GI prophylaxis: Will be on pantoprazole. 12. Diarrhea. Stool cultures including C. diff may be related to Augmentin. CODE STATUS: No Code DISCHARGE PLAN Most likely home this week. Patient may require home oxygen. Impression and plan of care have been directed as dictated by the signing physician. Leeann Rose nurse practitioner acting as scribe for signing physician. Objective - Vital Signs Vital signs: Vital Signs Temp 97.6 F 07/23/20 10:13 Pulse 74 07/23/20 10:13 Resp 20 07/23/20 10:13 BP 125/73 07/23/20 10:13 Pulse Ox 91 L 07/23/20 10:13 Intake & Output 07/22/20 07/23/20 07/23/20 18:59 06:59 18:59 Intake Total 500 0 Output Total 1800 1750 Balance -1800 -1250 0 Weight 134.1 kg 132.5 kg Intake: Oral 500 Blood Product 0 Ffp Pher Conval Covid19 0 Acda 2 Unit [id number] Output: Urine 1800 1450 Urine/Stool Mix 300 Other: Voiding Method Bedside Commode External Catheter # Voids 2 # Bowel Movements 1 3 - Labs CBC & Chem 7: 07/21/20 07:57 07/21/20 07:57 Labs: Abnormal Lab Results - Last 24 Hours (Table) 07/22/20 07/22/20 07/22/20 Range/Units 05:33 12:17 17:01 POC Glucose (mg/dL) 184 H 290 H (75-99) mg/dL Lactate Dehydrogenase 531 H (120-246) U/L C-Reactive Protein 3.3 H (0.0-0.8) mg/dL 07/22/20 07/23/20 Range/Units 20:21 07:13 POC Glucose (mg/dL) 278 H 339 H (75-99) mg/dL Lactate Dehydrogenase (120-246) U/L C-Reactive Protein (0.0-0.8) mg/dL Microbiology - Last 24 Hours (Table) 07/22/20 12:00 Stool Culture - Preliminary Stool 07/16/20 Unknown Blood Culture - Final Blood No Growth after 144 hours
[2020-07-23 16:47] LABS: Glucose,Whole Blood 211 mg/dL (75-99)
[2020-07-23 20:35] LABS: Glucose,Whole Blood 231 mg/dL (75-99)
[2020-07-23] MEDS: LINAGLIPTIN 5 MG TABLET PO SCH (21:05)
[2020-07-24] MEDS: ACETAMINOPHEN TAB 325 MG TAB PO PRN ×2 (00:01→20:03)
[2020-07-24] MEDS: methylPREDNISolone SOD SUCCI 125 MG/2 ML VIAL IV SCH ×4 (05:02→23:46)
[2020-07-24 06:48] LABS: Glucose,Whole Blood 292 mg/dL (75-99)
[2020-07-24] MEDS: ZINC SULFATE 220 MG CAP PO SCH (07:50)
[2020-07-24] MEDS: ASCORBIC ACID 500 MG TAB PO SCH (07:50)
[2020-07-24] MEDS: INSULIN ASPART (NovoLOG) 100 UNIT/ML VIAL SQ SCH ×7 (07:50→19:58)
[2020-07-24] MEDS: INSULIN DETEMIR (LEVEMIR) 100 UNIT/ML SYR SQ SCH (07:50)
[2020-07-24] MEDS: METOPROLOL TARTRATE 12.5 MG TAB PO SCH (07:51)
[2020-07-24] MEDS: CHOLECALCIFEROL 25 MCG (1000 IU) TABLET PO SCH (07:51)
[2020-07-24] MEDS: PANTOPRAZOLE 40 MG TABLET PO SCH ×2 (07:51→20:02)
[2020-07-24] MEDS: ENOXAPARIN 80 MG/0.8 ML SYRINGE SQ SCH ×2 (07:52→20:05)
[2020-07-24] MEDS: COLCHICINE 0.6 MG EACH PO SCH ×2 (07:52→20:04)
[2020-07-24] MEDS: FLECAINIDE 50 MG TAB PO SCH ×2 (07:52→20:04)
[2020-07-24] MEDS: BUMETANIDE 0.25 MG/ML 4 ML VIAL IVP SCH ×2 (07:52→20:05)
[2020-07-24] MEDS: AMOXIC-POT CLAV 875-125MG 1 EACH TAB PO SCH ×2 (07:52→20:04)
[2020-07-24] MEDS: NON FORMULARY DRUG (Potassium Gluconate [Potassium Gluconate] 99 MG Tablet.Er) PO SCH (08:27)
[2020-07-24] MEDS: FLUTICASONE 50MCG/SPRAY NASAL 16GM EA NOSTRIL SCH (08:28)
[2020-07-24 09:29] LABS: HCT 36.3 % (37.2-46.3); HGB 10.3 g/dL (12.0-15.0); MCH 21.4 pg (27.0-32.0); MCHC 28.4 g/dL (32.0-37.0); MCV 75.5 fL (80.0-97.0); Mean Platelet Volume 9.7 fL (9.5-12.2); Platelet Count 95 X 10*3/uL (140-440); RBC 4.81 X 10*6/uL (4.10-5.20); RDW 17.6 % (11.5-14.5); WBC 9.86 X 10*3/uL (4.50-10.00)
[2020-07-24 10:25] LABS: African American GFR (CKD) 64.7 (60.0-200.0); Albumin 3.2 g/dL (3.80-4.90); Albumin/Globulin Ratio 1.03 (1.60-3.17); Anion Gap 10.7 mmol/L (4.00-12.00); Calcium 8.1 mg/dL (8.7-10.3); Carbon Dioxide 28.3 mmol/L (21.6-31.8); Globulin 3.1 g/dL (1.6-3.3); Non-African American GFR(CKD) 55.8 (60.0-200.0); Potassium 3.4 mmol/L (3.5-5.5); Total Bilirubin 1.1 mg/dL (0.3-1.2); Total Protein 6.3 g/dL (6.2-8.2)
[2020-07-24 11:27] LABS: Glucose,Whole Blood 204 mg/dL (75-99)
[2020-07-24] MEDS: CHOLESTYRAMINE (WITH SUGAR) 4 GM PACKET PO SCH ×2 (11:38→17:40)
--- NOTE | 2020-07-24 12:12 | P.PN ---
Subjective Progress Note Date: 07/24/20 74-year-old female who was seen in the emergency department on 07/16/2020, at 1535. The patient presented with complaints of shortness of breath. The patient has a history of atrial fibrillation, obesity, congestive heart failure, and diabetes. She apparently was diagnosed with COVID 19 infection on July 09. Prior to being tested positive, the patient had 2 weeks of what she describes as a head cold. She started taking vitamins, and Decadron. More recently, she's been getting progressively worse as it relates to her shortness of breath, which now occurs on any activity. She does have some nausea, but denies any vomiting or diarrhea. She denies any chest pain. She denies any genitourinary complaints and lower extremity edema. Apparently her family doctor recommended that she come into the emergency room to be evaluated. A chest x-ray reveals some mild pulmonary interstitial pneumonia, and the CT angiogram revealed no evidence of any central or large pulmonary emboli, but did show extensive groundglass pulmonary interstitial infiltrates, consistent with her diagnosis of COVID19 pneumonia. Unfortunately, she is beyond the window for remdesivir. Currently, she is on 5 L nasal cannula, and her saturations are 99%. Her respiratory rate is 20, and her temperature is 97.6F. Blood pressure is good and heart rate is 71 bpm. Her current white count is 8.09, hemoglobin 10.1, hematocrit 34.7, and platelet count 137,000. Sodium is 135, potassium 4.9, chlorides 102, CO2 25, anion gap 8, BUN 17, and creatinine 0.8. D-dimer is 1.21, ferritin is 624, LDH is 1468, and C-reactive protein is 139. N-terminal proBNP was 1970. Pro-calcitonin level was 0.20. On 07/18/2020 patient seen in follow-up on medical floor, she is currently on 11 L of oxygen, she is awake and alert, she said nobody into the bed, apparently earlier she felt a little dizzy, she feels fatigued, be in no acute distress. Today's labs have been reviewed, showing white blood cell count of 18.5, hemoglo bin is 10.4, his inflammatory markers are trending down, LDH is down to 943, CRP is down to 6.6, pro calcitonin level was 0.20. Continues on prophylactic dose of Lovenox, IV Decadron 6 mg daily, colchicine, and zinc On 07/19/2020 patient seen in follow-up on medical floor. She is currently up to 2 L of oxygen, her pulse ox is 91-94%, she states she feels better but she is requiring more oxygen, she states she is coughing up some phlegm. Today's chest x-ray has been reviewed showing central vascularity and interstitial increased, bilateral groundglass opacity within the lungs. And there is persistent elevation of the right hemidiaphragm. Patient seems to have increased edema in her lower extremities, she is currently on a daily dose of oral Bumex 1 mg daily, her lung sounds positive for scattered rhonchi. We will add empiric antibiotics, will afternoon dose of oral Bumex and obtain follow-up chest x-ray tomorrow. Physically she states she is feeling better, she is able to clear some phlegm. On 07/20/2020 patient seen in follow-up on medical floor, her oxygen requirements are continuously increasing, currently up to 15 L of oxygen per high flow nasal cannula and partial nonrebreather and her pulse ox is between 91-95%, afebrile. She is more dyspneic today, her lower extremities remain swollen, we did give the patient a dose of diuretics yesterday, however her neck fluid balance is very difficult to estimate. Her inflammatory markers have been reviewed, and pH is down to 780, and CRP is at 9.4, pro calcitonin level has decreased and is down to 0.12, however d-dimer has trended down and is up to 8.72, and we will adjust the dose of Lovenox to 0.5 mg/kg of body weight twice daily. Based Effexor has been reviewed showing worsening airspace disease, pneumonia and pulmonary edema. The patient is seen today 07/21/2020 in follow-up on the regular medical floor. She is currently sitting up in a chair at the bedside. Awake and alert in no acute distress. She is still requiring 15 L high flow nasal cannula along with 15 L partial rebreather mask. O2 saturations in the low 90s. She is afebrile. She has received 1 unit of convalescent plasma. White count 16.2. Hemoglobin 10.2. Lymphocytes 0.3. Sodium 138. Potassium 3.8. Creatinine 0.8. She is on antibiotics in the form of Augmentin. Continue on vitamin supplements. Remains on colchicine, IV Solu-Medrol, Lovenox. The patient is seen today 07/22/2020 in follow-up on the regular medical floor. She is awake and alert in no acute distress. Sitting up in a chair at the bedside. She is still requiring 15 L high flow nasal cannula along with a partial nonrebreather mask to maintain O2 saturations in the low 90s. Chest x- ray continues to show bilateral airspace infiltrates however there is some interval improvement. She did receive 1 unit of convalescent plasma. D-dimer 7.56. LDH 531. C-reactive protein 3.3. She remains on colchicine, IV Solu- Medrol, Lovenox, vitamin supplements, Augmentin. On 07/23/2020, the patient is being seen for a follow-up. The patient is doing well pH is essentially the same as yesterday. No worsening shortness of breath. She is off the nonrebreather facemask and she is utilizing on a 15 L of oxygen by nasal cannula. She is still currently receiving treatment for Covid 19. She received a dose of, less than plasma. She is also oncolchicine, IV Solu-Medrol, Lovenox, vitamin supplements, Augmentin. The patient's blood sugar is slightly elevated and they're being managed by sliding scale insulin coverage. She is also taking Levemir insulin 45 units daily in addition to Trajenda. The d-dimer is at 7.56. The patient is on Lovenox 70 mg subcu every 12 hours. She is also receiving Bumex 1 mg IV twice a day as diuretics. 07/24/2020 the patient is being seen for a follow-up regarding Covid 19 related pneumonia. The patient has a acute hypoxic respiratory failure and the patient is currently on oxygen at 15 L high flow earlier this morning with a pulse ox of 95%. However, the patient prefers to also put on a nonrebreather mask which makes her more comfortable. She seems to be more so than mouth breather. She is afebrile. A follow-up chest x-ray has not been done today. She remains on IV Solu-Medrol, colchicine, Lovenox and multivitamins. She is on Augmentin as an empiric antibiotic coverage. Her blood sugars today are fine as 204. White cell count of 9.8 with hemoglobin of 10.3. Platelet count is 95 and compared to the earlier evaluations, there is a drop in the platelet count. The CRP level from 07/22/2020 was 3.3, LDH level was 531 and were supposed to obtain a follow- up chest x-ray and an inflammatory markers and this has not been done. She is currently on Bumex 1 mg IV push every 12 hours. Objective - Vital Signs Vital signs: Vital Signs Temp 97.8 F 07/24/20 10:00 Pulse 83 07/24/20 10:00 Resp 20 07/24/20 10:00 BP 134/71 07/24/20 10:00 Pulse Ox 95 07/24/20 10:00 Intake & Output 07/23/20 07/24/20 07/24/20 18:59 06:59 18:59 Intake Total 1425 950 Output Total 700 1200 Balance 725 -250 Weight 133 kg Intake: Oral 1212 950 Blood Product 213 Ffp Pher Conval Covid19 213 Acda 2 Unit [id number] Output: Urine 700 850 Urine/Stool Mix 350 Other: Voiding Method Bedside Commode # Voids 1 # Bowel Movements 4 1 - Exam GENERAL EXAM: Alert, very pleasant, obese 74-year-old female patient 15 L of oxygen and she is not experiencing any significant shortness of breath at rest HEAD: Normocephalic/atraumatic. EYES: Normal reaction of pupils, equal size. Conjunctiva pink, sclera white. NOSE: Clear with pink turbinates. THROAT: No erythema or exudates. NECK: No masses, no JVD, no thyroid enlargement, no adenopathy. CHEST: No chest wall deformity. Symmetrical expansion. LUNGS: Equal air entry with bilateral scattered rhonchi CVS: Regular rate and rhythm, normal S1 and S2, no gallops, no murmurs, no rubs ABDOMEN: Soft, nontender. No hepatosplenomegaly, normal bowel sounds, no guarding or rigidity. EXTREMITIES: No clubbing,has edema, no cyanosis, 2+ pulses and upper and lower extremities. MUSCULOSKELETAL: Muscle strength and tone normal. SPINE: No scoliosis or deformity SKIN: No rashes CENTRAL NERVOUS SYSTEM: Alert and oriented -3. No focal deficits, tone is normal in all 4 extremities. PSYCHIATRIC: Alert and oriented -3. Appropriate affect. Intact judgment and insight. - Labs CBC & Chem 7: 07/24/20 06:03 07/24/20 06:03 Labs: Abnormal Lab Results - Last 24 Hours (Table) 07/23/20 07/23/20 07/24/20 Range/Units 16:40 20:33 06:03 Hgb 10.3 L (12.0-15.0) g/dL Hct 36.3 L (37.2-46.3) % MCV 75.5 L (80.0-97.0) fL MCH 21.4 L (27.0-32.0) pg MCHC 28.4 L (32.0-37.0) g/dL RDW 17.6 H (11.5-14.5) % Plt Count 95 L (140-440) X 10*3/uL Potassium (3.5-5.5) mmol/L BUN (9.0-27.0) mg/dL Est GFR (CKD-EPI)NonAf (60.0-200.0) BUN/Creatinine Ratio (12.00-20.00) Ratio Glucose (70-110) mg/dL POC Glucose (mg/dL) 211 H 231 H (75-99) mg/dL Calcium (8.7-10.3) mg/dL AST (13-35) U/L ALT (8-44) U/L Albumin (3.80-4.90) g/dL Albumin/Globulin Ratio (1.60-3.17) g/dL 07/24/20 07/24/20 07/24/20 Range/Units 06:03 06:46 11:25 Hgb (12.0-15.0) g/dL Hct (37.2-46.3) % MCV (80.0-97.0) fL MCH (27.0-32.0) pg MCHC (32.0-37.0) g/dL RDW (11.5-14.5) % Plt Count (140-440) X 10*3/uL Potassium 3.4 L (3.5-5.5) mmol/L BUN 35.0 H (9.0-27.0) mg/dL Est GFR (CKD-EPI)NonAf 55.8 L (60.0-200.0) BUN/Creatinine Ratio 35.00 H (12.00-20.00) Ratio Glucose 263 H (70-110) mg/dL POC Glucose (mg/dL) 292 H 204 H (75-99) mg/dL Calcium 8.1 L (8.7-10.3) mg/dL AST 37 H (13-35) U/L ALT 48 H (8-44) U/L Albumin 3.20 L (3.80-4.90) g/dL Albumin/Globulin Ratio 1.03 L (1.60-3.17) g/dL Assessment and Plan Plan: 1. Acute hypoxemic respiratory failure secondary to COVID 19 pneumonia. Currently on 15 L high flow nasal cannula along with partial rebreather mask suggest weaning down oxygen probably getting rid of the partial nonrebreather and gradually weaning down to high flow oxygen. A follow-up inflammatory marker levels needs to be obtained. Follow-up chest x-rays to be obtained. The patient is currently on a combination of colchicine, Solu-Medrol, and Lovenox. She has already received, less than plasma. 2 History of diabetes mellitus. 3 History of atrial fibrillation, the patient currently is in a sinus rhythm 4 History of congestive heart failure. 5 History of osteoarthritis. 6 History of chronic back pain. 7 Status post lap band surgery for obesity. 8 History of deafness. Plan: Continue current treatment Obtain serum inflammatory markers including LDH, CRP, and d-dimer is along with a portable chest x-ray Down the FiO2 to tolerate a saturation above 90% Continue the combination of IV Solu-Medrol, colchicine, Lovenox and the patient has already received a total of 2 units of convalescent plasma Continue Lovenox 70 mg subcu every 12 hours IV Bumex 1 mg every 12 hours Blood sugar management with Lantus and sliding-scale coverage insulin We will follow
--- NOTE | 2020-07-24 12:48 | XR ---
EXAMINATION TYPE: XR chest 1V DATE OF EXAM: 07/24/2020 COMPARISON: Chest x-ray 07/22/2020 HISTORY: Covid positive, shortness of breath TECHNIQUE: Single frontal view of the chest is obtained. FINDINGS: Findings are similar to prior exam. Bilateral airspace disease is present. No evident pneu mothorax or pleural effusion. Cardiac mediastinal silhouette is stable. Aorta is dense. Patient is ro tated. Exam is expiratory. Right hemidiaphragm remains elevated. IMPRESSION: Essentially stable findings, correlate for pneumonia.
--- NOTE | 2020-07-24 15:22 | P.PN ---
Subjective Progress Note Date: 07/24/20 74-year-old morbidly obese female one of my office patient with past medical history of A. fib with RVR, history of acute gastrointestinal bleed with anemia, history of type 2 diabetes, history of obstructive sleep apnea, mild reactive airway/COPD and mild diastolic congestive heart failure who has been seen in the office the last week for acute Covid, patient was diagnosed on the ended up going for monoclonal anti-body infusion on the . Patient called office with worsening symptoms was seen in virtual visit and was recommended to go to the hospital to be admitted. Patient has been having worsening dyspnea and shortness of breath along with severe hypoxia worsening persistent cough prod uctive of phlegm along with mild twinges of blood. Patient was seen at the emergency department her pulse ox was in the 80 percentile with a few breathing treatment along with 3 L of O2 her pulse ox was increased to the low 90. Patient chest x-ray showed severe interstitial pneumonitis. Her d-dimer was elevated and ended up going for CTA showed extensive ground glass pulmonary interstitial edema could be related to RDS no pleural effusion found at the time. Patient was started on steroids along with updraft treatment O2 will consult pulmonary admit patient to the hospital. 2/2: The patient states that she is feeling much better today. She states that she did not sleep well last night. She is found sitting up in recliner and appears to be comfortable and in no acute distress. She has been afebrile, heart rate 72, blood pressure 160/83, pulse ox 92-98% on 5 L nasal cannula. Consult in place from pulmonary medicine. Blood sugars are running in the 200s. WBC 8, hemoglobin 10.1. Repeat lactic acid 1.7. IV fluids will be discontinued. Patient is on her home dose of Bumex. 2/3: Patient has been afebrile, heart rate 79, blood pressure 162/69, pulse ox 93% on 10 L nasal cannula. Patient complains of shortness of breath and feeling cold. She continues to cough. WBC is 18.5, hemoglobin 10.4, electrolytes normal. Creatinine 0.9. Total bilirubin 0.9, AST 88, ALT 44, alkaline phosphatase 143, LDH 943, C reactive protein 6.6. Overall, inflammatory markers are improving. Patient has been seen by pulmonary medicine and is outside of the window for Remdesivir treatment. Colchicine was added 07/19:tates that she was unable to sleep all night. She was on a nonrebreather and she felt she had a panic attack. She states that she is normally claustrophobic. She is currently seen on 15 L with pulse ox of 91%. She appears to be comfortable at rest. She is complaining of dark brown sputum production. She is also having mild nosebleed with dried blood only. Blood sugars are running between 257-300. D-dimer 8.72. LDH and CRP are pending. Patient has been afebrile, heart rate 82, blood pressure 144/51. She will probably not be ready for discharge until Thursday. 07/20: Patient has developed increasing shortness of breath overnight. She is now requiring high flow nasal cannula and nonrebreather with pulse ox of 91-95%. She has been afebrile, heart rate 77, blood pressure 178/79. Blood sugars are running between 132 and 261. Convalescent plasma has been ordered by pulmonary medicine today. Steroids have been changed to Solu-Medrol 60 mg IV every 6 melly rs. Lovenox increased to 70 mg subcu twice daily. Antibiotics in the form of Augmentin. 07/21: Patient states that she is feeling better compared to yesterday. She continues to be on 15 L high flow not nasal cannula and nonrebreather. We'll continue to attempt to wean. Receiving Bumex 2 mg IV. Continues to have lower extremity swelling bilaterally. Patient received [address] asma. She was complaining of dryness to bilateral nares. Flonase added. Patient remains afebrile, pulse rate 56, blood pressure 167/73, pulse ox 94% on nonrebreather and high flow oxygen. Discussed with patient's CODE STATUS. Patient states that she does not want to be intubated or have CPR performed. We will change her CODE STATUS to no code. 07/22: Patient is found sitting up in chair continue to utilize 15 L of high flow oxygen be significantly cannula nonrebreather pulse oxing 98%. Patient states that she is feeling better able to breathe easier. She has been having diarrhea for the past few days 3-4 episodes yesterday and only one today. Patient denies any abdominal discomfort or blood in stool. She is currently on Augmentin. We will do stool cultures including C. diff. 07/23: Patient remains on high flow nasal cannula 15 L with nonrebreather at her bedside. She is pulse oxing 91 and 94%. She's been afebrile, heart rate in the 70s, blood pressure 123/74. Blood sugars have been between 193 and 339. Anticipate need for oxygen at home. 07/24: Patient is on oxygen at 15 L high flow nasal cannula with pulse ox of 95%. She has been afebrile, heart rate 74, blood pressure 135/75. WBC 9.8, hemoglobin 10.3, platelet count 95. Sodium 136, potassium 3. former be replaced . BUN 35 and creatinine 1. Blood sugars running in the 200s. AST 37, ALT 48. Anticipate that the patient will require home oxygen at the time of discharge. REVIEW OF SYSTEMS CONSTITUTIONAL: Well-developed with moderate respiratory distress. Denies fevers. Denies chills. EYES: No icterus sclerae, no conjunctivitis. EARS, NOSE, MOUTH, THROAT, and FACE: No sore throat, lymphadenopathy, carotid bruits or deformity. RESPIRATORY: Moderate dyspnea and shortness of breath and cough. Dyspnea with exertion. Dyspnea at rest. Positive brown sputum production. CARDIOVASCULAR: Positive PND orthopnea . Denies palpitation with no angina. GASTROINTESTINAL: No Abd pain, Nausea or vomiting, no Diarrhea or constipation, No GI Bleed, no distention or masses. GENITOURINARY: Negative for Hematuria or UTI, no kidney stones. INTEGUMENT/BREAST: Negative for any muscular injury with mild osteoarthritis. Chronic edema. HEMATOLOGIC/LYMPHATIC: Negative for bleed or purpura. MUSCULOSKELTAL: Negative for Myalgia or arthralgia. Significant arthralgia and myalgia. NEURLOGICAL: No LOC, Sz or syncope, blurred vision dizziness or abnormality.. BEHAVIORAL/PSYCH: Negative. ENDOCRINE: Negative. PHYSICAL EXAMINATION General Appearance: Alert, cooperative, morbidly obese in no respiratory distress. Patient is resting comfortably in chair. Neck HEENT: Supple, no lymphadenopathy, no thyroid enlargement, no carotid bruits. Lungs: Decreased breath some bilateral especially the right lower base with fine rhonchi crackles and minimal expiratory wheezes. Positive accessory muscle usage Chest Wall: Decrease expansion with deep inspiration no tenderness and no deformity was found on exam, no costochondral pain or discomfort. Heart: Regular rate and rhythm, S1, S2 positive systolic murmur with S3. Back: Symmetric, no curvature, ROM normal, no CVA tenderness. Abdomen: Soft, non-tender, bowel sounds active all four quadrants, no masses, no organomegaly. Extremities: 1+ edema and decreased pulses bilaterally. Pulses: 1+ and symmetric. Skin: Skin color, texture, tugor normal, no rashes or lesions. Neurologic: Alert oriented x3 cranial nerves II through XII intact, no motor deficit, no abnormal balance or gait. ASSESSMENT AND PLAN 1 acute hypoxic respiratory failure secondary to acute Covid pneumonitis with worsening symptoms. Consult with pulmonary medicine. Continue Solu-Medrol 60 mg IV every 6 hours, convalescent plasma, Augmentin, vitamin C, vitamin D, colchicine, oxygen support, lovenox increased to 70 mg twice daily. bumex 1mg iv twice daily. 2 acute Covid pneumonitis with worsening symptoms. Continue as in #1. 3 COPD continue albuterol inhaler. 4. Paroxysmal atrial fibrillation, unable to tolerate anticoagulation secondary to acute GI bleed, continue metoprolol 12.5 mg twice daily and flecainide 50 mg twice a day. 5 type 2 diabetes, uncontrolled with hyperglycemia secondary to steroids. Continue Accu-Chek with sliding scales coverage continue Lantus at 45 units daily and still on Januvia. And scheduled NovoLog 3u increased to 6 units with meals. 6 chronic diastolic heart failure. Continue Bumex 1 mg twice brandon IV y, Lopressor. 7 peptic ulcer disease and GI prophylaxis: Continue patient on pantoprazole 40 mg daily. 8 chronic anemia: Remain on iron supplement and multivitamins no need for transfusion. 9 mild hyponatremia: Most likely SIADH from pneumonia will continue mild gentle hydration repeat chemistry in the next 24 hours. 10 DVT prophylaxis: Patient will be on Lovenox subcutaneous daily. 11 GI prophylaxis: Will be on pantoprazole. 12. Diarrhea. Stool cultures. C. diff negative. Diarrhea most likely secondary to Augmentin. CODE STATUS: No Code DISCHARGE PLAN Most likely home this week. Patient may require home oxygen. Impression and plan of care have been directed as dictated by the signing physician. Leeann Rose nurse practitioner acting as scribe for signing physician. Objective - Vital Signs Vital signs: Vital Signs Temp 97.8 F 07/24/20 14:00 Pulse 74 02/09/21 14:00 Resp 20 07/24/20 14:00 BP 135/75 07/24/20 14:00 Pulse Ox 95 07/24/20 14:00 Intake & Output 07/23/20 07/24/20 07/24/20 18:59 06:59 18:59 Intake Total 1425 950 Output Total 700 1200 Balance 725 -250 Weight 133 kg Intake: Oral 1212 950 Blood Product 213 Ffp Pher Conval Covid19 213 Acda 2 Unit [id number] Output: Urine 700 850 Urine/Stool Mix 350 Other: Voiding Method Bedside Commode # Voids 1 # Bowel Movements 4 1 - Labs CBC & Chem 7: 07/24/20 06:03 07/24/20 06:03 Labs: Abnormal Lab Results - Last 24 Hours (Table) 07/23/20 07/23/20 07/24/20 Range/Units 16:40 20:33 06:03 Hgb 10.3 L (12.0-15.0) g/dL Hct 36.3 L (37.2-46.3) % MCV 75.5 L (80.0-97.0) fL MCH 21.4 L (27.0-32.0) pg MCHC 28.4 L (32.0-37.0) g/dL RDW 17.6 H (11.5-14.5) % Plt Count 95 L (140-440) X 10*3/uL D-Dimer (<0.60) mg/L FEU Potassium (3.5-5.5) mmol/L BUN (9.0-27.0) mg/dL Est GFR (CKD-EPI)NonAf (60.0-200.0) BUN/Creatinine Ratio (12.00-20.00) Ratio Glucose (70-110) mg/dL POC Glucose (mg/dL) 211 H 231 H (75-99) mg/dL Calcium (8.7-10.3) mg/dL AST (13-35) U/L ALT (8-44) U/L Albumin (3.80-4.90) g/dL Albumin/Globulin Ratio (1.60-3.17) g/dL 07/24/20 07/24/20 07/24/20 Range/Units 06:03 06:46 11:25 Hgb (12.0-15.0) g/dL Hct (37.2-46.3) % MCV (80.0-97.0) fL MCH (27.0-32.0) pg MCHC (32.0-37.0) g/dL RDW (11.5-14.5) % Plt Count (140-440) X 10*3/uL D-Dimer (<0.60) mg/L FEU Potassium 3.4 L (3.5-5.5) mmol/L BUN 35.0 H (9.0-27.0) mg/dL Est GFR (CKD-EPI)NonAf 55.8 L (60.0-200.0) BUN/Creatinine Ratio 35.00 H (12.00-20.00) Ratio Glucose 263 H (70-110) mg/dL POC Glucose (mg/dL) 292 H 204 H (75-99) mg/dL Calcium 8.1 L (8.7-10.3) mg/dL AST 37 H (13-35) U/L ALT 48 H (8-44) U/L Albumin 3.20 L (3.80-4.90) g/dL Albumin/Globulin Ratio 1.03 L (1.60-3.17) g/dL 07/24/20 Range/Units 12:21 Hgb (12.0-15.0) g/dL Hct (37.2-46.3) % MCV (80.0-97.0) fL MCH (27.0-32.0) pg MCHC (32.0-37.0) g/dL RDW (11.5-14.5) % Plt Count (140-440) X 10*3/uL D-Dimer 3.62 H (<0.60) mg/L FEU Potassium (3.5-5.5) mmol/L BUN (9.0-27.0) mg/dL Est GFR (CKD-EPI)NonAf (60.0-200.0) BUN/Creatinine Ratio (12.00-20.00) Ratio Glucose (70-110) mg/dL POC Glucose (mg/dL) (75-99) mg/dL Calcium (8.7-10.3) mg/dL AST (13-35) U/L ALT (8-44) U/L Albumin (3.80-4.90) g/dL Albumin/Globulin Ratio (1.60-3.17) g/dL
[2020-07-24 15:44] LABS: C Reactive Protein 12.9 mg/L (<10.0)
[2020-07-24 17:00] LABS: Glucose,Whole Blood 203 mg/dL (75-99)
[2020-07-24 19:59] LABS: Glucose,Whole Blood 128 mg/dL (75-99)
[2020-07-24] MEDS: LINAGLIPTIN 5 MG TABLET PO SCH (20:03)
[2020-07-24] MEDS: ALBUTEROL HFA INHALER INHALATION PRN (21:29)
[2020-07-25] MEDS: methylPREDNISolone SOD SUCCI 125 MG/2 ML VIAL IV SCH ×4 (05:16→23:55)
[2020-07-25 07:01] LABS: Glucose,Whole Blood 155 mg/dL (75-99)
[2020-07-25] MEDS: ALBUTEROL HFA INHALER INHALATION PRN ×3 (08:14→20:48)
[2020-07-25] MEDS: INSULIN ASPART (NovoLOG) 100 UNIT/ML VIAL SQ SCH ×7 (08:25→22:12)
[2020-07-25] MEDS: INSULIN DETEMIR (LEVEMIR) 100 UNIT/ML SYR SQ SCH (08:25)
[2020-07-25] MEDS: CHOLESTYRAMINE (WITH SUGAR) 4 GM PACKET PO SCH ×2 (08:26→18:14)
[2020-07-25] MEDS: FLUCONAZOLE 100 MG TAB PO SCH (08:27)
[2020-07-25] MEDS: AMOXIC-POT CLAV 875-125MG 1 EACH TAB PO SCH ×2 (08:27→22:11)
[2020-07-25] MEDS: ASCORBIC ACID 500 MG TAB PO SCH (08:27)
[2020-07-25] MEDS: COLCHICINE 0.6 MG EACH PO SCH ×2 (08:27→22:11)
[2020-07-25] MEDS: METOPROLOL TARTRATE 12.5 MG TAB PO SCH (08:27)
[2020-07-25] MEDS: ZINC SULFATE 220 MG CAP PO SCH (08:27)
[2020-07-25] MEDS: PANTOPRAZOLE 40 MG TABLET PO SCH ×2 (08:27→22:11)
[2020-07-25] MEDS: CHOLECALCIFEROL 25 MCG (1000 IU) TABLET PO SCH (08:27)
[2020-07-25] MEDS: FLECAINIDE 50 MG TAB PO SCH ×2 (08:28→22:11)
[2020-07-25] MEDS: NON FORMULARY DRUG (Potassium Gluconate [Potassium Gluconate] 99 MG Tablet.Er) PO SCH (08:40)
[2020-07-25] MEDS: BUMETANIDE 0.25 MG/ML 4 ML VIAL IVP SCH ×2 (08:41→22:12)
[2020-07-25] MEDS: FLUTICASONE 50MCG/SPRAY NASAL 16GM EA NOSTRIL SCH (08:42)
[2020-07-25] MEDS: ENOXAPARIN 80 MG/0.8 ML SYRINGE SQ SCH ×2 (09:09→22:11)
[2020-07-25] MEDS: Acetaminophen-Codeine 300-30mg TAB PO PRN (09:13)
[2020-07-25 11:22] LABS: Glucose,Whole Blood 262 mg/dL (75-99)
[2020-07-25] MEDS ORDERED: BUMETANIDE 0.25 MG/ML 4 ML VIAL IVP STA (12:31)
--- NOTE | 2020-07-25 12:33 | P.PN ---
Subjective Progress Note Date: 07/25/20 74-year-old morbidly obese female one of my office patient with past medical history of A. fib with RVR, history of acute gastrointestinal bleed with anemia, history of type 2 diabetes, history of obstructive sleep apnea, mild reactive airway/COPD and mild diastolic congestive heart failure who has been seen in the office the last week for acute Covid, patient was diagnosed on the ended up going for monoclonal anti-body infusion on the . Patient called office with worsening symptoms was seen in virtual visit and was recommended to go to the hospital to be admitted. Patient has been having worsening dyspnea and shortness of breath along with severe hypoxia worsening persistent cough prod uctive of phlegm along with mild twinges of blood. Patient was seen at the emergency department her pulse ox was in the 80 percentile with a few breathing treatment along with 3 L of O2 her pulse ox was increased to the low 90. Patient chest x-ray showed severe interstitial pneumonitis. Her d-dimer was elevated and ended up going for CTA showed extensive ground glass pulmonary interstitial edema could be related to RDS no pleural effusion found at the time. Patient was started on steroids along with updraft treatment O2 will consult pulmonary admit patient to the hospital. 2/2: The patient states that she is feeling much better today. She states that she did not sleep well last night. She is found sitting up in recliner and appears to be comfortable and in no acute distress. She has been afebrile, heart rate 72, blood pressure 160/83, pulse ox 92-98% on 5 L nasal cannula. Consult in place from pulmonary medicine. Blood sugars are running in the 200s. WBC 8, hemoglobin 10.1. Repeat lactic acid 1.7. IV fluids will be discontinued. Patient is on her home dose of Bumex. 2/3: Patient has been afebrile, heart rate 79, blood pressure 162/69, pulse ox 93% on 10 L nasal cannula. Patient complains of shortness of breath and feeling cold. She continues to cough. WBC is 18.5, hemoglobin 10.4, electrolytes normal. Creatinine 0.9. Total bilirubin 0.9, AST 88, ALT 44, alkaline phosphatase 143, LDH 943, C reactive protein 6.6. Overall, inflammatory markers are improving. Patient has been seen by pulmonary medicine and is outside of the window for Remdesivir treatment. Colchicine was added 07/19:tates that she was unable to sleep all night. She was on a nonrebreather and she felt she had a panic attack. She states that she is normally claustrophobic. She is currently seen on 15 L with pulse ox of 91%. She appears to be comfortable at rest. She is complaining of dark brown sputum production. She is also having mild nosebleed with dried blood only. Blood sugars are running between 257-300. D-dimer 8.72. LDH and CRP are pending. Patient has been afebrile, heart rate 82, blood pressure 144/51. She will probably not be ready for discharge until Thursday. 07/20: Patient has developed increasing shortness of breath overnight. She is now requiring high flow nasal cannula and nonrebreather with pulse ox of 91-95%. She has been afebrile, heart rate 77, blood pressure 178/79. Blood sugars are running between 132 and 261. Convalescent plasma has been ordered by pulmonary medicine today. Steroids have been changed to Solu-Medrol 60 mg IV every 6 melly rs. Lovenox increased to 70 mg subcu twice daily. Antibiotics in the form of Augmentin. 07/21: Patient states that she is feeling better compared to yesterday. She continues to be on 15 L high flow not nasal cannula and nonrebreather. We'll continue to attempt to wean. Receiving Bumex 2 mg IV. Continues to have lower extremity swelling bilaterally. Patient received [address] asma. She was complaining of dryness to bilateral nares. Flonase added. Patient remains afebrile, pulse rate 56, blood pressure 167/73, pulse ox 94% on nonrebreather and high flow oxygen. Discussed with patient's CODE STATUS. Patient states that she does not want to be intubated or have CPR performed. We will change her CODE STATUS to no code. 07/22: Patient is found sitting up in chair continue to utilize 15 L of high flow oxygen be significantly cannula nonrebreather pulse oxing 98%. Patient states that she is feeling better able to breathe easier. She has been having diarrhea for the past few days 3-4 episodes yesterday and only one today. Patient denies any abdominal discomfort or blood in stool. She is currently on Augmentin. We will do stool cultures including C. diff. 07/23: Patient remains on high flow nasal cannula 15 L with nonrebreather at her bedside. She is pulse oxing 91 and 94%. She's been afebrile, heart rate in the 70s, blood pressure 123/74. Blood sugars have been between 193 and 339. Anticipate need for oxygen at home. 07/24: Patient is on oxygen at 15 L high flow nasal cannula with pulse ox of 95%. She has been afebrile, heart rate 74, blood pressure 135/75. WBC 9.8, hemoglobin 10.3, platelet count 95. Sodium 136, potassium 3. former be replaced . BUN 35 and creatinine 1. Blood sugars running in the 200s. AST 37, ALT 48. Anticipate that the patient will require home oxygen at the time of discharge. 07/25: Pulse ox is 93% on 15 L high flow nasal cannula and partial rebreather. She's been afebrile, heart rate 89, blood pressure 127/74. Blood sugars running between 128 and 262. Repeat chest x-ray reveals stable findings. Correlate for pneumonia. Patient has been maintained on Augmentin, colchicine, Lovenox, IV Solu-Medrol and supplements. We'll order one additional dose of Bumex this afternoon. REVIEW OF SYSTEMS CONSTITUTIONAL: Well-developed with moderate respiratory distress. Denies fevers. Denies chills. EYES: No icterus sclerae, no conjunctivitis. EARS, NOSE, MOUTH, THROAT, and FACE: No sore throat, lymphadenopathy, carotid bruits or deformity. RESPIRATORY: Moderate dyspnea and shortness of breath and cough. Dyspnea with exertion. Dyspnea at rest. CARDIOVASCULAR: Positive PND orthopnea . Denies palpitation with no angina. GASTROINTESTINAL: No Abd pain, Nausea or vomiting, no Diarrhea or constipation, No GI Bleed, no distention or masses. GENITOURINARY: Negative for Hematuria or UTI, no kidney stones. INTEGUMENT/BREAST: Negative for any muscular injury with mild osteoarthritis. Chronic edema. HEMATOLOGIC/LYMPHATIC: Negative for bleed or purpura. MUSCULOSKELTAL: Negative for Myalgia or arthralgia. Significant arthralgia and myalgia. NEURLOGICAL: No LOC, Sz or syncope, blurred vision dizziness or abnormality.. BEHAVIORAL/PSYCH: Negative. ENDOCRINE: Negative. PHYSICAL EXAMINATION General Appearance: Alert, cooperative, morbidly obese in no respiratory distress. Patient is resting comfortably in chair. Neck HEENT: Supple, no lymphadenopathy, no thyroid enlargement, no carotid bruits. Lungs: Decreased breath some bilateral especially the right lower base with fine rhonchi crackles and minimal expiratory wheezes. Positive mild accessory muscle usage Chest Wall: Decrease expansion with deep inspiration no tenderness and no deformity was found on exam, no costochondral pain or discomfort. Heart: Regular rate and rhythm, S1, S2 positive systolic murmur with S3. Back: Symmetric, no curvature, ROM normal, no CVA tenderness. Abdomen: Soft, non-tender, bowel sounds active all four quadrants, no masses, no organomegaly. Extremities: 1+ edema and decreased pulses bilaterally. Pulses: 1+ and symmetric. Skin: Skin color, texture, tugor normal, no rashes or lesions. Neurologic: Alert oriented x3 cranial nerves II through XII intact, no motor deficit, no abnormal balance or gait. ASSESSMENT AND PLAN 1 acute hypoxic respiratory failure secondary to acute Covid pneumonitis with worsening symptoms. Consult with pulmonary medicine. Continue Solu-Medrol 60 mg IV every 6 hours, convalescent plasma, Augmentin, vitamin C, vitamin D, colchicine, oxygen support, lovenox increased to 70 mg twice daily. bumex 1mg iv twice daily. One additional dose of Bumex 1 mg IV today. 2 acute Covid pneumonitis with worsening symptoms. Continue as in #1. 3 COPD continue albuterol inhaler. 4. Paroxysmal atrial fibrillation, unable to tolerate anticoagulation secondary to acute GI bleed, continue metoprolol 12.5 mg twice daily and flecainide 50 mg twice a day. 5 type 2 diabetes, uncontrolled with hyperglycemia secondary to steroids. Continue Accu-Chek with sliding scales coverage continue Lantus at 45 units daily and still on Januvia. And scheduled NovoLog 3u increased to 6 units with meals. 6 chronic diastolic heart failure. Continue Bumex 1 mg twice brandon IV y, Lopressor. 7 peptic ulcer disease and GI prophylaxis: Continue patient on pantoprazole 40 mg daily. 8 chronic anemia: Remain on iron supplement and multivitamins no need for transfusion. 9 mild hyponatremia: Most likely SIADH from pneumonia will continue mild gentle hydration repeat chemistry in the next 24 hours. 10 DVT prophylaxis: Patient will be on Lovenox subcutaneous daily. 11 GI prophylaxis: Will be on pantoprazole. 12. Diarrhea. Stool cultures. C. diff negative. Diarrhea most likely secondary to Augmentin. CODE STATUS: No Code DISCHARGE PLAN Most likely home this week. Patient may require home oxygen. Impression and plan of care have been directed as dictated by the signing physic ian. Leeann Rose nurse practitioner acting as scribe for signing physician. Objective - Vital Signs Vital signs: Vital Signs Temp 97.9 F 07/25/20 10:00 Pulse 89 07/25/20 10:00 Resp 22 07/25/20 10:00 BP 127/74 07/25/20 10:00 Pulse Ox 93 L 07/25/20 10:00 Intake & Output 07/24/20 07/25/20 07/25/20 18:59 06:59 18:59 Intake Total 1200 Output Total 700 200 400 Balance 500 -200 -400 Weight 132.4 kg Intake: Oral 1200 Output: Urine 700 200 400 Other: Voiding Method Bedside Commode # Voids 1 1 # Bowel Movements 1 1 - Labs CBC & Chem 7: 07/24/20 06:03 07/24/20 06:03 Labs: Abnormal Lab Results - Last 24 Hours (Table) 07/24/20 07/24/20 07/24/20 Range/Units 06:03 11:25 12:21 D-Dimer 3.62 H (<0.60) mg/L FEU Potassium 3.4 L (3.5-5.5) mmol/L BUN 35.0 H (9.0-27.0) mg/dL Est GFR (CKD-EPI)NonAf 55.8 L (60.0-200.0) BUN/Creatinine Ratio 35.00 H (12.00-20.00) Ratio Glucose 263 H (70-110) mg/dL POC Glucose (mg/dL) 204 H (75-99) mg/dL Calcium 8.1 L (8.7-10.3) mg/dL AST 37 H (13-35) U/L ALT 48 H (8-44) U/L Lactate Dehydrogenase (313-618) U/L C-Reactive Protein (<10.0) mg/L Albumin 3.20 L (3.80-4.90) g/dL Albumin/Globulin Ratio 1.03 L (1.60-3.17) g/dL 07/24/20 07/24/20 07/24/20 Range/Units 12: 16:47 19:57 D-Dimer (<0.60) mg/L FEU Potassium (3.5-5.5) mmol/L BUN (9.0-27.0) mg/dL Est GFR (CKD-EPI)NonAf (60.0-200.0) BUN/Creatinine Ratio (12.00-20.00) Ratio Glucose (70-110) mg/dL POC Glucose (mg/dL) 203 H 128 H (75-99) mg/dL Calcium (8.7-10.3) mg/dL AST (13-35) U/L ALT (8-44) U/L Lactate Dehydrogenase 1146 H (313-618) U/L C-Reactive Protein 12.9 H (<10.0) mg/L Albumin (3.80-4.90) g/dL Albumin/Globulin Ratio (1.60-3.17) g/dL 07/25/20 Range/Units 06:59 D-Dimer (<0.60) mg/L FEU Potassium (3.5-5.5) mmol/L BUN (9.0-27.0) mg/dL Est GFR (CKD-EPI)NonAf (60.0-200.0) BUN/Creatinine Ratio (12.00-20.00) Ratio Glucose (70-110) mg/dL POC Glucose (mg/dL) 155 H (75-99) mg/dL Calcium (8.7-10.3) mg/dL AST (13-35) U/L ALT (8-44) U/L Lactate Dehydrogenase (313-618) U/L C-Reactive Protein (<10.0) mg/L Albumin (3.80-4.90) g/dL Albumin/Globulin Ratio (1.60-3.17) g/dL Microbiology - Last 24 Hours (Table) 07/24/20 Unknown Gram Stain - Preliminary Sputum Sputum Culture - Preliminary 07/22/20 12:00 Stool Culture - Preliminary Stool Vianey albicans
--- NOTE | 2020-07-25 14:28 | P.PN ---
Subjective Progress Note Date: 07/25/20 74-year-old female who was seen in the emergency department on 07/16/2020, at 1535. The patient presented with complaints of shortness of breath. The patient has a history of atrial fibrillation, obesity, congestive heart failure, and diabetes. She apparently was diagnosed with COVID 19 infection on July 09. Prior to being tested positive, the patient had 2 weeks of what she describes as a head cold. She started taking vitamins, and Decadron. More recently, she's been getting progressively worse as it relates to her shortness of breath, which now occurs on any activity. She does have some nausea, but denies any vomiting or diarrhea. She denies any chest pain. She denies any genitourinary complaints and lower extremity edema. Apparently her family doctor recommended that she come into the emergency room to be evaluated. A chest x-ray reveals some mild pulmonary interstitial pneumonia, and the CT angiogram revealed no evidence of any central or large pulmonary emboli, but did show extensive groundglass pulmonary interstitial infiltrates, consistent with her diagnosis of COVID19 pneumonia. Unfortunately, she is beyond the window for remdesivir. Currently, she is on 5 L nasal cannula, and her saturations are 99%. Her respiratory rate is 20, and her temperature is 97.6F. Blood pressure is good and heart rate is 71 bpm. Her current white count is 8.09, hemoglobin 10.1, hematocrit 34.7, and platelet count 137,000. Sodium is 135, potassium 4.9, chlorides 102, CO2 25, anion gap 8, BUN 17, and creatinine 0.8. D-dimer is 1.21, ferritin is 624, LDH is 1468, and C-reactive protein is 139. N-terminal proBNP was 1970. Pro-calcitonin level was 0.20. On 07/18/2020 patient seen in follow-up on medical floor, she is currently on 11 L of oxygen, she is awake and alert, she said nobody into the bed, apparently earlier she felt a little dizzy, she feels fatigued, be in no acute distress. Today's labs have been reviewed, showing white blood cell count of 18.5, hemoglo bin is 10.4, his inflammatory markers are trending down, LDH is down to 943, CRP is down to 6.6, pro calcitonin level was 0.20. Continues on prophylactic dose of Lovenox, IV Decadron 6 mg daily, colchicine, and zinc On 07/19/2020 patient seen in follow-up on medical floor. She is currently up to 2 L of oxygen, her pulse ox is 91-94%, she states she feels better but she is requiring more oxygen, she states she is coughing up some phlegm. Today's chest x-ray has been reviewed showing central vascularity and interstitial increased, bilateral groundglass opacity within the lungs. And there is persistent elevation of the right hemidiaphragm. Patient seems to have increased edema in her lower extremities, she is currently on a daily dose of oral Bumex 1 mg daily, her lung sounds positive for scattered rhonchi. We will add empiric antibiotics, will afternoon dose of oral Bumex and obtain follow-up chest x-ray tomorrow. Physically she states she is feeling better, she is able to clear some phlegm. On 07/20/2020 patient seen in follow-up on medical floor, her oxygen requirements are continuously increasing, currently up to 15 L of oxygen per high flow nasal cannula and partial nonrebreather and her pulse ox is between 91-95%, afebrile. She is more dyspneic today, her lower extremities remain swollen, we did give the patient a dose of diuretics yesterday, however her neck fluid balance is very difficult to estimate. Her inflammatory markers have been reviewed, and pH is down to 780, and CRP is at 9.4, pro calcitonin level has decreased and is down to 0.12, however d-dimer has trended down and is up to 8.72, and we will adjust the dose of Lovenox to 0.5 mg/kg of body weight twice daily. Based Effexor has been reviewed showing worsening airspace disease, pneumonia and pulmonary edema. The patient is seen today 07/21/2020 in follow-up on the regular medical floor. She is currently sitting up in a chair at the bedside. Awake and alert in no acute distress. She is still requiring 15 L high flow nasal cannula along with 15 L partial rebreather mask. O2 saturations in the low 90s. She is afebrile. She has received 1 unit of convalescent plasma. White count 16.2. Hemoglobin 10.2. Lymphocytes 0.3. Sodium 138. Potassium 3.8. Creatinine 0.8. She is on antibiotics in the form of Augmentin. Continue on vitamin supplements. Remains on colchicine, IV Solu-Medrol, Lovenox. The patient is seen today 07/22/2020 in follow-up on the regular medical floor. She is awake and alert in no acute distress. Sitting up in a chair at the bedside. She is still requiring 15 L high flow nasal cannula along with a partial nonrebreather mask to maintain O2 saturations in the low 90s. Chest x- ray continues to show bilateral airspace infiltrates however there is some interval improvement. She did receive 1 unit of convalescent plasma. D-dimer 7.56. LDH 531. C-reactive protein 3.3. She remains on colchicine, IV Solu- Medrol, Lovenox, vitamin supplements, Augmentin. On 07/23/2020, the patient is being seen for a follow-up. The patient is doing well pH is essentially the same as yesterday. No worsening shortness of breath. She is off the nonrebreather facemask and she is utilizing on a 15 L of oxygen by nasal cannula. She is still currently receiving treatment for Covid 19. She received a dose of, less than plasma. She is also oncolchicine, IV Solu-Medrol, Lovenox, vitamin supplements, Augmentin. The patient's blood sugar is slightly elevated and they're being managed by sliding scale insulin coverage. She is also taking Levemir insulin 45 units daily in addition to Trajenda. The d-dimer is at 7.56. The patient is on Lovenox 70 mg subcu every 12 hours. She is also receiving Bumex 1 mg IV twice a day as diuretics. 07/24/2020 the patient is being seen for a follow-up regarding Covid 19 related pneumonia. The patient has a acute hypoxic respiratory failure and the patient is currently on oxygen at 15 L high flow earlier this morning with a pulse ox of 95%. However, the patient prefers to also put on a nonrebreather mask which makes her more comfortable. She seems to be more so than mouth breather. She is afebrile. A follow-up chest x-ray has not been done today. She remains on IV Solu-Medrol, colchicine, Lovenox and multivitamins. She is on Augmentin as an empiric antibiotic coverage. Her blood sugars today are fine as 204. White cell count of 9.8 with hemoglobin of 10.3. Platelet count is 95 and compared to the earlier evaluations, there is a drop in the platelet count. The CRP level from 07/22/2020 was 3.3, LDH level was 531 and were supposed to obtain a follow- up chest x-ray and an inflammatory markers and this has not been done. She is currently on Bumex 1 mg IV push every 12 hours. On 07/25/2020, I'm seeing the patient for a follow-up. The patient as stated earlier has COVID 19 pneumonia. The patient is an acute hypoxic respiratory failure. She is requiring 15 liters oxygen. She is also requiring a nonrebreather facemask on top of the 15 L of oxygen by nasal cannula. The patient continues to have difficulties with shortness of breath and she desaturates down to the mid 80s. I think it's reasonable to consider switching this patient to a high flow nasal cannula system. She remains on IV Solu-Medrol pH is also on colchicine, Lovenox and multivitamins. Inflammatory markers from today are still pending. LDH from yesterday was 1146 and the d-dimer was at 3.6. The patient has no other complaints otherwise for now. Objective - Vital Signs Vital signs: Vital Signs Temp 97.6 F 07/25/20 13:57 Pulse 66 07/25/20 13:57 Resp 20 07/25/20 13:57 BP 127/69 07/25/20 13:57 Pulse Ox 100 07/25/20 13:57 Intake & Output 07/24/20 07/25/20 07/25/20 18:59 06:59 18:59 Intake Total 1200 Output Total 700 200 800 Balance 500 -200 -800 Weight 132.4 kg Intake: Oral 1200 Output: Urine 700 200 800 Other: Voiding Method Bedside Commode # Voids 1 1 # Bowel Movements 1 1 - Exam GENERAL EXAM: Alert, very pleasant, obese 74-year-old female patient 15 L of oxygen In addition to a nonrebreather facemask. HEAD: Normocephalic/atraumatic. EYES: Normal reaction of pupils, equal size. Conjunctiva pink, sclera white. NOSE: Clear with pink turbinates. THROAT: No erythema or exudates. NECK: No masses, no JVD, no thyroid enlargement, no adenopathy. CHEST: No chest wall deformity. Symmetrical expansion. LUNGS: Equal air entry with bilateral scattered rhonchi CVS: Regular rate and rhythm, normal S1 and S2, no gallops, no murmurs, no rubs ABDOMEN: Soft, nontender. No hepatosplenomegaly, normal bowel sounds, no guarding or rigidity. EXTREMITIES: No clubbing,has edema, no cyanosis, 2+ pulses and upper and lower extremities. MUSCULOSKELETAL: Muscle strength and tone normal. SPINE: No scoliosis or deformity SKIN: No rashes CENTRAL NERVOUS SYSTEM: Alert and oriented -3. No focal deficits, tone is normal in all 4 extremities. PSYCHIATRIC: Alert and oriented -3. Appropriate affect. Intact judgment and insight. - Labs CBC & Chem 7: 07/24/20 06:03 07/24/20 06:03 Labs: Abnormal Lab Results - Last 24 Hours (Table) 07/24/20 07/24/20 07/24/20 Range/Units 12:21 16:47 19:57 POC Glucose (mg/dL) 203 H 128 H (75-99) mg/dL Lactate Dehydrogenase 1146 H (313-618) U/L C-Reactive Protein 12.9 H (<10.0) mg/L 07/25/20 07/25/20 Range/Units 06:59 11:20 POC Glucose (mg/dL) 155 H 262 H (75-99) mg/dL Lactate Dehydrogenase (313-618) U/L C-Reactive Protein (<10.0) mg/L Microbiology - Last 24 Hours (Table) 07/24/20 Unknown Gram Stain - Preliminary Sputum Sputum Culture - Preliminary 07/22/20 12:00 Stool Culture - Preliminary Stool Vianey albicans Assessment and Plan Plan: 1. Acute hypoxemic respiratory failure secondary to COVID 19 pneumonia. Currently on 15 L high flow nasal cannula along with partial rebreather mask suggest weaning down oxygen probably getting rid of the partial nonrebreather and gradually weaning down to high flow oxygen. Likely unchanged compared to yesterday. Inflammatory markers were not measured. The patient is on same oxygen flow in addition to a nonrebreather facemask. On recommending a high flow oxygen on a trial basis. 2 History of diabetes mellitus. 3 History of atrial fibrillation, the patient currently is in a sinus rhythm 4 History of congestive heart failure. 5 History of osteoarthritis. 6 History of chronic back pain. 7 Status post lap band surgery for obesity. 8 History of deafness. Plan: We'll try high flow oxygen this patient and discontinued the partial nonrebreather Continue current treatment Obtain serum inflammatory markers including LDH, CRP, and d-dimer is along with a portable chest x-ray in am Down titrate FiO2 to tolerate a saturation above 90% Continue the combination of IV Solu-Medrol, colchicine, Lovenox and the patient has already received a total of 2 units of convalescent plasma Continue Lovenox 70 mg subcu every 12 hours IV Bumex 1 mg every 12 hours Blood sugar management with Lantus and sliding-scale coverage insulin We will follow
[2020-07-25 16:35] LABS: Glucose,Whole Blood 145 mg/dL (75-99)
[2020-07-25 20:34] LABS: Glucose,Whole Blood 189 mg/dL (75-99)
[2020-07-25] MEDS: LINAGLIPTIN 5 MG TABLET PO SCH (22:11)
[2020-07-26] MEDS: ACETAMINOPHEN TAB 325 MG TAB PO PRN ×3 (02:31→19:07)
[2020-07-26] MEDS: methylPREDNISolone SOD SUCCI 125 MG/2 ML VIAL IV SCH ×3 (06:05→18:02)
[2020-07-26 07:15] LABS: Glucose,Whole Blood 186 mg/dL (75-99)
[2020-07-26] MEDS: ALBUTEROL HFA INHALER INHALATION PRN ×2 (08:47→11:41)
[2020-07-26] MEDS: INSULIN ASPART (NovoLOG) 100 UNIT/ML VIAL SQ SCH ×7 (09:41→20:59)
[2020-07-26] MEDS: INSULIN DETEMIR (LEVEMIR) 100 UNIT/ML SYR SQ SCH (09:41)
[2020-07-26] MEDS: ZINC SULFATE 220 MG CAP PO SCH (09:42)
[2020-07-26] MEDS: CHOLESTYRAMINE (WITH SUGAR) 4 GM PACKET PO SCH ×2 (09:42→18:01)
[2020-07-26] MEDS: ENOXAPARIN 80 MG/0.8 ML SYRINGE SQ SCH ×2 (09:42→20:59)
[2020-07-26] MEDS: BUMETANIDE 0.25 MG/ML 4 ML VIAL IVP SCH ×3 (09:43→20:59)
[2020-07-26] MEDS: COLCHICINE 0.6 MG EACH PO SCH ×2 (09:43→20:59)
[2020-07-26] MEDS: CHOLECALCIFEROL 25 MCG (1000 IU) TABLET PO SCH (09:43)
[2020-07-26] MEDS: FLECAINIDE 50 MG TAB PO SCH ×2 (09:43→20:59)
[2020-07-26] MEDS: PANTOPRAZOLE 40 MG TABLET PO SCH ×2 (09:43→21:00)
[2020-07-26] MEDS: ASCORBIC ACID 500 MG TAB PO SCH (09:43)
[2020-07-26] MEDS: METOPROLOL TARTRATE 12.5 MG TAB PO SCH (09:43)
[2020-07-26] MEDS: FLUCONAZOLE 100 MG TAB PO SCH (09:45)
[2020-07-26] MEDS: AMOXIC-POT CLAV 875-125MG 1 EACH TAB PO SCH (09:46)
[2020-07-26] MEDS: FLUTICASONE 50MCG/SPRAY NASAL 16GM EA NOSTRIL SCH (09:47)
[2020-07-26] MEDS: BENZONATATE 100 MG CAP PO SCH ×3 (09:47→21:12)
[2020-07-26] MEDS: NON FORMULARY DRUG (Potassium Gluconate [Potassium Gluconate] 99 MG Tablet.Er) PO SCH (09:47)
[2020-07-26 10:30] LABS: Anisocytosis Slight; HGB 11.2 gm/dL (11.4-16.0); Hypochromasia Marked; MCH 21.8 pg (25.0-35.0); MCHC 28.7 g/dL (31.0-37.0); MCV 76.2 fL (80.0-100.0); Mean Platelet Volume 8.3; Microcytosis Slight; RBC 5.12 m/uL (3.80-5.40); RDW 16.5 % (11.5-15.5)
[2020-07-26 10:43] LABS: ALT 87 U/L (4-34); AST 73 U/L (14-36); African American GFR (CKD) 85 (>60 ml/min/1.73 sqM); Albumin 2.7 g/dL (3.5-5.0); Albumin/Globulin Ratio 0.7; Alkaline Phosphatase 111 U/L (38-126); Anion Gap 7 mmol/L; Blood Urea Nitrogen 44 mg/dL (7-17); C Reactive Protein <5.0 mg/L (<10.0); Carbon Dioxide 34 mmol/L (22-30); Chloride 95 mmol/L (98-107); Globulin 3.7 g/dL; Glucose 273 mg/dL (74-99); LDH 932 U/L (313-618); Non-African American GFR(CKD) 74 (>60 ml/min/1.73 sqM); Potassium 3.7 mmol/L (3.5-5.1); Sodium 136 mmol/L (137-145); Total Bilirubin 1.3 mg/dL (0.2-1.3); Total Protein 6.4 g/dL (6.3-8.2)
[2020-07-26 10:52] LABS: Platelet Count 87 k/uL (150-450)
[2020-07-26] MEDS: POTASSIUM CHLORIDE ER 20 MEQ TAB.ER PO SCH (11:44)
[2020-07-26 11:55] LABS: Glucose,Whole Blood 237 mg/dL (75-99)
[2020-07-26] MEDS ORDERED: NYSTATIN 100,000 UNIT/ML SUSP 500,000 UNIT/5 ML CUP PO SCH (13:00)
--- NOTE | 2020-07-26 15:00 | P.PN ---
Subjective Progress Note Date: 07/26/20 74-year-old morbidly obese female one of my office patient with past medical history of A. fib with RVR, history of acute gastrointestinal bleed with anemia, history of type 2 diabetes, history of obstructive sleep apnea, mild reactive airway/COPD and mild diastolic congestive heart failure who has been seen in the office the last week for acute Covid, patient was diagnosed on the ended up going for monoclonal anti-body infusion on the . Patient called office with worsening symptoms was seen in virtual visit and was recommended to go to the hospital to be admitted. Patient has been having worsening dyspnea and shortness of breath along with severe hypoxia worsening persistent cough prod uctive of phlegm along with mild twinges of blood. Patient was seen at the emergency department her pulse ox was in the 80 percentile with a few breathing treatment along with 3 L of O2 her pulse ox was increased to the low 90. Patient chest x-ray showed severe interstitial pneumonitis. Her d-dimer was elevated and ended up going for CTA showed extensive ground glass pulmonary interstitial edema could be related to RDS no pleural effusion found at the time. Patient was started on steroids along with updraft treatment O2 will consult pulmonary admit patient to the hospital. 2/2: The patient states that she is feeling much better today. She states that she did not sleep well last night. She is found sitting up in recliner and appears to be comfortable and in no acute distress. She has been afebrile, heart rate 72, blood pressure 160/83, pulse ox 92-98% on 5 L nasal cannula. Consult in place from pulmonary medicine. Blood sugars are running in the 200s. WBC 8, hemoglobin 10.1. Repeat lactic acid 1.7. IV fluids will be discontinued. Patient is on her home dose of Bumex. 2/3: Patient has been afebrile, heart rate 79, blood pressure 162/69, pulse ox 93% on 10 L nasal cannula. Patient complains of shortness of breath and feeling cold. She continues to cough. WBC is 18.5, hemoglobin 10.4, electrolytes normal. Creatinine 0.9. Total bilirubin 0.9, AST 88, ALT 44, alkaline phosphatase 143, LDH 943, C reactive protein 6.6. Overall, inflammatory markers are improving. Patient has been seen by pulmonary medicine and is outside of the window for Remdesivir treatment. Colchicine was added 07/19:tates that she was unable to sleep all night. She was on a nonrebreather and she felt she had a panic attack. She states that she is normally claustrophobic. She is currently seen on 15 L with pulse ox of 91%. She appears to be comfortable at rest. She is complaining of dark brown sputum production. She is also having mild nosebleed with dried blood only. Blood sugars are running between 257-300. D-dimer 8.72. LDH and CRP are pending. Patient has been afebrile, heart rate 82, blood pressure 144/51. She will probably not be ready for discharge until Thursday. 07/20: Patient has developed increasing shortness of breath overnight. She is now requiring high flow nasal cannula and nonrebreather with pulse ox of 91-95%. She has been afebrile, heart rate 77, blood pressure 178/79. Blood sugars are running between 132 and 261. Convalescent plasma has been ordered by pulmonary medicine today. Steroids have been changed to Solu-Medrol 60 mg IV every 6 melly rs. Lovenox increased to 70 mg subcu twice daily. Antibiotics in the form of Augmentin. 07/21: Patient states that she is feeling better compared to yesterday. She continues to be on 15 L high flow not nasal cannula and nonrebreather. We'll continue to attempt to wean. Receiving Bumex 2 mg IV. Continues to have lower extremity swelling bilaterally. Patient received [address] asma. She was complaining of dryness to bilateral nares. Flonase added. Patient remains afebrile, pulse rate 56, blood pressure 167/73, pulse ox 94% on nonrebreather and high flow oxygen. Discussed with patient's CODE STATUS. Patient states that she does not want to be intubated or have CPR performed. We will change her CODE STATUS to no code. 07/22: Patient is found sitting up in chair continue to utilize 15 L of high flow oxygen be significantly cannula nonrebreather pulse oxing 98%. Patient states that she is feeling better able to breathe easier. She has been having diarrhea for the past few days 3-4 episodes yesterday and only one today. Patient denies any abdominal discomfort or blood in stool. She is currently on Augmentin. We will do stool cultures including C. diff. 07/23: Patient remains on high flow nasal cannula 15 L with nonrebreather at her bedside. She is pulse oxing 91 and 94%. She's been afebrile, heart rate in the 70s, blood pressure 123/74. Blood sugars have been between 193 and 339. Anticipate need for oxygen at home. 07/24: Patient is on oxygen at 15 L high flow nasal cannula with pulse ox of 95%. She has been afebrile, heart rate 74, blood pressure 135/75. WBC 9.8, hemoglobin 10.3, platelet count 95. Sodium 136, potassium 3. former be replaced . BUN 35 and creatinine 1. Blood sugars running in the 200s. AST 37, ALT 48. Anticipate that the patient will require home oxygen at the time of discharge. 07/25: Pulse ox is 93% on 15 L high flow nasal cannula and partial rebreather. She's been afebrile, heart rate 89, blood pressure 127/74. Blood sugars running between 128 and 262. Repeat chest x-ray reveals stable findings. Correlate for pneumonia. Patient has been maintained on Augmentin, colchicine, Lovenox, IV Solu-Medrol and supplements. We'll order one additional dose of Bumex this afternoon. 07/26: Patient continues to have cough with hemoptysis, she has shortness of breath with minimal activity. Pulse ox is 91-95% on 15 L high flow nasal cannula. We will add in Tessalon pearls. She continues to have thrush for whic h she is on Diflucan. Bumex increased to 2 mg IV push twice daily. She has been afebrile, heart rate 77, blood pressure 143/68. Repeat blood work reveals WBC 9, hemoglobin 11.2, platelet count 87. Sodium 136, potassium 3.7, CO2 34, BUN 44 and creatinine 0.8. Blood sugars are running 186-237. AST at 73, ALT 73. Repeat LDH 732. C-reactive protein less than 5. Patient will continue treatment in the hospital until oxygenation is improved and she is down to 5 or 6 L nasal cannula. REVI EW OF SYSTEMS CONSTITUTIONAL: Well-developed with moderate respiratory distress. Denies fevers. Denies chills. EYES: No icterus sclerae, no conjunctivitis. EARS, NOSE, MOUTH, THROAT, and FACE: No sore throat, lymphadenopathy, carotid bruits or deformity. RESPIRATORY: Moderate dyspnea and shortness of breath and cough. Dyspnea with exertion. Dyspnea at rest. CARDIOVASCULAR: Positive PND orthopnea . Denies palpitation with no angina. GASTROINTESTINAL: No Abd pain, Nausea or vomiting, no Diarrhea or constipation, No GI Bleed, no distention or masses. GENITOURINARY: Negative for Hematuria or UTI, no kidney stones. INTEGUMENT/BREAST: Negative for any muscular injury with mild osteoarthritis. Chronic edema. HEMATOLOGIC/LYMPHATIC: Negative for bleed or purpura. MUSCULOSKELTAL: Negative for Myalgia or arthralgia. Significant arthralgia and myalgia. NEURLOGICAL: No LOC, Sz or syncope, blurred vision dizziness or abnormality.. BEHAVIORAL/PSYCH: Negative. ENDOCRLavina blood sugars PHYSICAL EXAMINATION General Appearance: Alert, cooperative, morbidly obese in no respiratory distress. Patient is resting comfortably in chair. Neck HEENT: Supple, no lymphadenopathy, no thyroid enlargement, no carotid bruits. Lungs: Decreased breath some bilateral especially the right lower base with fine rhonchi crackles and minimal expiratory wheezes. Positive mild accessory muscle usage Chest Wall: Decrease expansion with deep inspiration no tenderness and no deformity was found on exam, no costochondral pain or discomfort. Heart: Regular rate and rhythm, S1, S2 positive systolic murmur with S3. Back: Symmetric, no curvature, ROM normal, no CVA tenderness. Abdomen: Soft, non-tender, bowel sounds active all four quadrants, no masses, no organomegaly. Extremities: 1+ edema and decreased pulses bilaterally. Pulses: 1+ and symmetric. Skin: Skin color, texture, tugor normal, no rashes or lesions. Neurologic: Alert oriented x3 cranial nerves II through XII intact, no motor deficit, no abnormal balance or gait. ASSESSMENT AND PLAN 1 acute hypoxic respiratory failure secondary to acute Covid pneumonitis with worsening symptoms. Consult with pulmonary medicine. Continue Solu-Medrol 60 mg IV every 6 hours, convalescent plasma, Augmentin, vitamin C, vitamin D, colchicine, oxygen support, lovenox increased to 70 mg twice daily. bumex Increase to 2 mg IV push twice daily. Tessalon Perles added. Telemetry will be discontinued. 2 acute Covid pneumonitis with worsening symptoms. Continue as in #1. 3 COPD continue albuterol inhaler. 4. Paroxysmal atrial fibrillation, unable to tolerate anticoagulation secondary to acute GI bleed, continue metoprolol 12.5 mg twice daily and flecainide 50 mg twice a day. 5 type 2 diabetes, uncontrolled with hyperglycemia secondary to steroids. Continue Accu-Chek with sliding scales coverage continue Lantus at 45 units daily and still on Januvia. And scheduled NovoLog 3u increased to 6 units with meals. 6 chronic diastolic heart failure. Continue Bumex 1 mg twice brandon IV y, Lopressor. 7 peptic ulcer disease and GI prophylaxis: Continue patient on pantoprazole 40 mg daily. 8 chronic anemia: Remain on iron supplement and multivitamins no need for t ransfusion. 9 mild hyponatremia: Most likely SIADH from pneumonia will continue mild gentle hydration repeat chemistry in the next 24 hours. 10 DVT prophylaxis: Patient will be on Lovenox subcutaneous daily. 11 GI prophylaxis: Will be on pantoprazole. 12. Diarrhea. Stool cultures. C. diff negative. Diarrhea most likely secondary to Augmentin. CODE STATUS: No Code DISCHARGE PLAN Most likely home nexts week. Patient may require home oxygen. Impression and plan of care have been directed as dictated by the signing physician. Leeann Rose nurse practitioner acting as scribe for signing physician. Objective - Vital Signs Vital signs: Vital Signs Temp 97.7 F 07/26/20 05:10 Pulse 67 07/26/20 05:10 Resp 18 07/26/20 05:10 BP 119/59 07/26/20 05:10 Pulse Ox 94 L 07/26/20 05:10 Intake & Output 07/25/20 07/26/20 07/26/20 18:59 06:59 18:59 Output Total 800 1100 Balance -800 -1100 Weight 131.5 kg Output: Urine 800 1100 Other: Voiding Method Bedside Commode # Voids 1 # Bowel Movements 1 - Labs CBC & Chem 7: 07/26/20 09:50 07/26/20 09:50 Labs: Abnormal Lab Results - Last 24 Hours (Table) 07/25/20 07/25/20 07/25/20 Range/Units 11:20 16:33 20:33 POC Glucose (mg/dL) 262 H 145 H 189 H (75-99) mg/dL 07/26/20 Range/Units 07:14 POC Glucose (mg/dL) 186 H (75-99) mg/dL Microbiology - Last 24 Hours (Table) 07/22/20 12:00 Stool Culture - Final Stool Vianey albicans 07/24/20 Unknown Gram Stain - Preliminary Sputum Sputum Culture - Preliminary
--- NOTE | 2020-07-26 16:13 | P.PN ---
Subjective Progress Note Date: 07/26/20 74-year-old female who was seen in the emergency department on 07/16/2020, at 1535. The patient presented with complaints of shortness of breath. The patient has a history of atrial fibrillation, obesity, congestive heart failure, and diabetes. She apparently was diagnosed with COVID 19 infection on July 09. Prior to being tested positive, the patient had 2 weeks of what she describes as a head cold. She started taking vitamins, and Decadron. More recently, she's been getting progressively worse as it relates to her shortness of breath, which now occurs on any activity. She does have some nausea, but denies any vomiting or diarrhea. She denies any chest pain. She denies any genitourinary complaints and lower extremity edema. Apparently her family doctor recommended that she come into the emergency room to be evaluated. A chest x-ray reveals some mild pulmonary interstitial pneumonia, and the CT angiogram revealed no evidence of any central or large pulmonary emboli, but did show extensive groundglass pulmonary interstitial infiltrates, consistent with her diagnosis of COVID19 pneumonia. Unfortunately, she is beyond the window for remdesivir. Currently, she is on 5 L nasal cannula, and her saturations are 99%. Her respiratory rate is 20, and her temperature is 97.6F. Blood pressure is good and heart rate is 71 bpm. Her current white count is 8.09, hemoglobin 10.1, hematocrit 34.7, and platelet count 137,000. Sodium is 135, potassium 4.9, chlorides 102, CO2 25, anion gap 8, BUN 17, and creatinine 0.8. D-dimer is 1.21, ferritin is 624, LDH is 1468, and C-reactive protein is 139. N-terminal proBNP was 1970. Pro-calcitonin level was 0.20. On 07/18/2020 patient seen in follow-up on medical floor, she is currently on 11 L of oxygen, she is awake and alert, she said nobody into the bed, apparently earlier she felt a little dizzy, she feels fatigued, be in no acute distress. Today's labs have been reviewed, showing white blood cell count of 18.5, hemoglo bin is 10.4, his inflammatory markers are trending down, LDH is down to 943, CRP is down to 6.6, pro calcitonin level was 0.20. Continues on prophylactic dose of Lovenox, IV Decadron 6 mg daily, colchicine, and zinc On 07/19/2020 patient seen in follow-up on medical floor. She is currently up to 2 L of oxygen, her pulse ox is 91-94%, she states she feels better but she is requiring more oxygen, she states she is coughing up some phlegm. Today's chest x-ray has been reviewed showing central vascularity and interstitial increased, bilateral groundglass opacity within the lungs. And there is persistent elevation of the right hemidiaphragm. Patient seems to have increased edema in her lower extremities, she is currently on a daily dose of oral Bumex 1 mg daily, her lung sounds positive for scattered rhonchi. We will add empiric antibiotics, will afternoon dose of oral Bumex and obtain follow-up chest x-ray tomorrow. Physically she states she is feeling better, she is able to clear some phlegm. On 07/20/2020 patient seen in follow-up on medical floor, her oxygen requirements are continuously increasing, currently up to 15 L of oxygen per high flow nasal cannula and partial nonrebreather and her pulse ox is between 91-95%, afebrile. She is more dyspneic today, her lower extremities remain swollen, we did give the patient a dose of diuretics yesterday, however her neck fluid balance is very difficult to estimate. Her inflammatory markers have been reviewed, and pH is down to 780, and CRP is at 9.4, pro calcitonin level has decreased and is down to 0.12, however d-dimer has trended down and is up to 8.72, and we will adjust the dose of Lovenox to 0.5 mg/kg of body weight twice daily. Based Effexor has been reviewed showing worsening airspace disease, pneumonia and pulmonary edema. The patient is seen today 07/21/2020 in follow-up on the regular medical floor. She is currently sitting up in a chair at the bedside. Awake and alert in no acute distress. She is still requiring 15 L high flow nasal cannula along with 15 L partial rebreather mask. O2 saturations in the low 90s. She is afebrile. She has received 1 unit of convalescent plasma. White count 16.2. Hemoglobin 10.2. Lymphocytes 0.3. Sodium 138. Potassium 3.8. Creatinine 0.8. She is on antibiotics in the form of Augmentin. Continue on vitamin supplements. Remains on colchicine, IV Solu-Medrol, Lovenox. The patient is seen today 07/22/2020 in follow-up on the regular medical floor. She is awake and alert in no acute distress. Sitting up in a chair at the bedside. She is still requiring 15 L high flow nasal cannula along with a partial nonrebreather mask to maintain O2 saturations in the low 90s. Chest x- ray continues to show bilateral airspace infiltrates however there is some interval improvement. She did receive 1 unit of convalescent plasma. D-dimer 7.56. LDH 531. C-reactive protein 3.3. She remains on colchicine, IV Solu- Medrol, Lovenox, vitamin supplements, Augmentin. On 07/23/2020, the patient is being seen for a follow-up. The patient is doing well pH is essentially the same as yesterday. No worsening shortness of breath. She is off the nonrebreather facemask and she is utilizing on a 15 L of oxygen by nasal cannula. She is still currently receiving treatment for Covid 19. She received a dose of, less than plasma. She is also oncolchicine, IV Solu-Medrol, Lovenox, vitamin supplements, Augmentin. The patient's blood sugar is slightly elevated and they're being managed by sliding scale insulin coverage. She is also taking Levemir insulin 45 units daily in addition to Trajenda. The d-dimer is at 7.56. The patient is on Lovenox 70 mg subcu every 12 hours. She is also receiving Bumex 1 mg IV twice a day as diuretics. 07/24/2020 the patient is being seen for a follow-up regarding Covid 19 related pneumonia. The patient has a acute hypoxic respiratory failure and the patient is currently on oxygen at 15 L high flow earlier this morning with a pulse ox of 95%. However, the patient prefers to also put on a nonrebreather mask which makes her more comfortable. She seems to be more so than mouth breather. She is afebrile. A follow-up chest x-ray has not been done today. She remains on IV Solu-Medrol, colchicine, Lovenox and multivitamins. She is on Augmentin as an empiric antibiotic coverage. Her blood sugars today are fine as 204. White cell count of 9.8 with hemoglobin of 10.3. Platelet count is 95 and compared to the earlier evaluations, there is a drop in the platelet count. The CRP level from 07/22/2020 was 3.3, LDH level was 531 and were supposed to obtain a follow- up chest x-ray and an inflammatory markers and this has not been done. She is currently on Bumex 1 mg IV push every 12 hours. On 07/25/2020, I'm seeing the patient for a follow-up. The patient as stated earlier has COVID 19 pneumonia. The patient is an acute hypoxic respiratory failure. She is requiring 15 liters oxygen. She is also requiring a nonrebreather facemask on top of the 15 L of oxygen by nasal cannula. The patient continues to have difficulties with shortness of breath and she desaturates down to the mid 80s. I think it's reasonable to consider switching this patient to a high flow nasal cannula system. She remains on IV Solu-Medrol pH is also on colchicine, Lovenox and multivitamins. Inflammatory markers from today are still pending. LDH from yesterday was 1146 and the d-dimer was at 3.6. The patient has no other complaints otherwise for now. On today's evaluation of 07/26/2020, the patient is only on 15 L of oxygen by nasal cannula and she is feeling well with a pulse ox of 95%. She is not utili zing her nonrebreather facemask. She is sitting up on a chair. She is calm and comfortable. No nausea vomiting or abdominal pain. No chest pain. She continues to have some crackers in the mid and lower lung his bilaterally. She remains on IV Solu-Medrol. She has also on a combination of Lovenox, colchicine and multivitamins. There is a inflammatory markers, the patient is showing a CRP level of less than 5, LDH level is 932. D-dimer is at 2.81. The white cell count of 9 with hemoglobin 11.2 and the platelet count is at 87. The patient is currently on Lovenox 70 mg subcu every 12 hours. This is essentially half a therapeutic dose. She is also on colchicine 0.6 mg by mouth twice a day and IV Sandostatin Medrol 60 mg every 6 hours. No major side effects from the systemic steroids. She is taking Diflucan. She is also negative. Insulin 45 units subcu along with a 6 units 3 times a day with meals and ascites care coverage. Her Bumex dose of 2 mg IV every 12 hours which has helped with her lower extremity edema. Objective - Vital Signs Vital signs: Vital Signs Temp 97.6 F 07/26/20 14:00 Pulse 62 07/26/20 14:00 Resp 16 07/26/20 14:00 BP 149/68 07/26/20 14:00 Pulse Ox 95 07/26/20 14:00 Intake & Output 07/25/20 07/26/20 07/26/20 18:59 06:59 18:59 Intake Total 532 Output Total 800 1100 400 Balance -800 -1100 132 Weight 131.5 kg Intake: Oral 532 Output: Urine 800 1100 400 Other: Voiding Method Bedside Commode # Voids 1 # Bowel Movements 1 - Exam GENERAL EXAM: Alert, very pleasant, obese 74-year-old female patient 15 L of oxygen HEAD: Normocephalic/atraumatic. EYES: Normal reaction of pupils, equal size. Conjunctiva pink, sclera white. NOSE: Clear with pink turbinates. THROAT: No erythema or exudates. NECK: No masses, no JVD, no thyroid enlargement, no adenopathy. CHEST: No chest wall deformity. Symmetrical expansion. LUNGS: Equal air entry with bilateral scattered rhonchi CVS: Regular rate and rhythm, normal S1 and S2, no gallops, no murmurs, no rubs ABDOMEN: Soft, nontender. No hepatosplenomegaly, normal bowel sounds, no guarding or rigidity. EXTREMITIES: No clubbing,has edema, no cyanosis, 2+ pulses and upper and lower extremities. MUSCULOSKELETAL: Muscle strength and tone normal. SPINE: No scoliosis or deformity SKIN: No rashes CENTRAL NERVOUS SYSTEM: Alert and oriented -3. No focal deficits, tone is normal in all 4 extremities. PSYCHIATRIC: Alert and oriented -3. Appropriate affect. Intact judgment and insight. - Labs CBC & Chem 7: 07/26/20 09:50 07/26/20 09:50 Labs: Abnormal Lab Results - Last 24 Hours (Table) 07/25/20 07/25/20 07/26/20 Range/Units 16:33 20:33 07:14 Hgb (11.4-16.0) gm/dL MCV (80.0-100.0) fL MCH (25.0-35.0) pg MCHC (31.0-37.0) g/dL RDW (11.5-15.5) % Plt Count (150-450) k/uL D-Dimer (<0.60) mg/L FEU Sodium (137-145) mmol/L Chloride (98-107) mmol/L Carbon Dioxide (22-30) mmol/L BUN (7-17) mg/dL Glucose (74-99) mg/dL POC Glucose (mg/dL) 145 H 189 H 186 H (75-99) mg/dL Calcium (8.4-10.2) mg/dL AST (14-36) U/L ALT (4-34) U/L Lactate Dehydrogenase (313-618) U/L Albumin (3.5-5.0) g/dL 07/26/20 07/26/20 07/26/20 Range/Units 09:50 09:50 09:50 Hgb 11.2 L (11.4-16.0) gm/dL MCV 76.2 L (80.0-100.0) fL MCH 21.8 L (25.0-35.0) pg MCHC 28.7 L (31.0-37.0) g/dL RDW 16.5 H (11.5-15.5) % Plt Count 87 L (150-450) k/uL D-Dimer 2.81 H (<0.60) mg/L FEU Sodium 136 L (137-145) mmol/L Chloride 95 L (98-107) mmol/L Carbon Dioxide 34 H (22-30) mmol/L BUN 44 H (7-17) mg/dL Glucose 273 H (74-99) mg/dL POC Glucose (mg/dL) (75-99) mg/dL Calcium 8.0 L (8.4-10.2) mg/dL AST 73 H (14-36) U/L ALT 87 H (4-34) U/L Lactate Dehydrogenase 932 H (313-618) U/L Albumin 2.7 L (3.5-5.0) g/dL 07/26/20 Range/Units 11:54 Hgb (11.4-16.0) gm/dL MCV (80.0-100.0) fL MCH (25.0-35.0) pg MCHC (31.0-37.0) g/dL RDW (11.5-15.5) % Plt Count (150-450) k/uL D-Dimer (<0.60) mg/L FEU Sodium (137-145) mmol/L Chloride (98-107) mmol/L Carbon Dioxide (22-30) mmol/L BUN (7-17) mg/dL Glucose (74-99) mg/dL POC Glucose (mg/dL) 237 H (75-99) mg/dL Calcium (8.4-10.2) mg/dL AST (14-36) U/L ALT (4-34) U/L Lactate Dehydrogenase (313-618) U/L Albumin (3.5-5.0) g/dL Microbiology - Last 24 Hours (Table) 07/24/20 Unknown Gram Stain - Preliminary Sputum Sputum Culture - Preliminary Vianey albicans 07/22/20 12:00 Stool Culture - Final Stool Vianey albicans Assessment and Plan Plan: 1. Acute hypoxemic respiratory failure secondary to COVID 19 pneumonia. Currently on 15 L high flow nasal cannula , inflammatory markers are improving, still on IV Solu-Medrol, still on a 0.5 mg subcu Lovenox every 12 hours in addit ion to colchicine and she is also on vitamin supplements. Doing well. She is off the nonrebreather facemask and she is utilizing only at 15 L which can be furthermore weaned down. 2 History of diabetes mellitus. 3 History of atrial fibrillation, the patient currently is in a sinus rhythm 4 History of congestive heart failure. 5 History of osteoarthritis. 6 History of chronic back pain. 7 Status post lap band surgery for obesity. 8 History of deafness. Plan: We'll tryto wean down the FiO2 to maintain a saturation above 90% Continue current treatment Obtain serum inflammatory markers including LDH, CRP, and d-dimer is along with a portable chest x-ray in am Down titrate FiO2 to tolerate a saturation above 90% Continue the combination of IV Solu-Medrol, colchicine, Lovenox and the patient has already received a total of 2 units of convalescent plasma Continue Lovenox 70 mg subcu every 12 hours IV Bumex 2 mg every 12 hours Blood sugar management with Lantus and sliding-scale coverage insulin We will follow
[2020-07-26 17:03] LABS: Glucose,Whole Blood 176 mg/dL (75-99)
[2020-07-26 20:06] LABS: Glucose,Whole Blood 205 mg/dL (75-99)
[2020-07-26] MEDS: LINAGLIPTIN 5 MG TABLET PO SCH (21:00)
[2020-07-27] MEDS: ACETAMINOPHEN TAB 325 MG TAB PO PRN ×2 (00:01→16:17)
[2020-07-27] MEDS: methylPREDNISolone SOD SUCCI 125 MG/2 ML VIAL IV SCH ×5 (05:23→23:11)
[2020-07-27 07:15] LABS: Glucose,Whole Blood 246 mg/dL (75-99)
[2020-07-27] MEDS: INSULIN ASPART (NovoLOG) 100 UNIT/ML VIAL SQ SCH ×7 (07:33→21:08)
[2020-07-27] MEDS: INSULIN DETEMIR (LEVEMIR) 100 UNIT/ML SYR SQ SCH (07:34)
[2020-07-27] MEDS: COLCHICINE 0.6 MG EACH PO SCH ×2 (07:35→21:00)
[2020-07-27] MEDS: FLECAINIDE 50 MG TAB PO SCH ×2 (07:35→21:00)
[2020-07-27] MEDS: ENOXAPARIN 80 MG/0.8 ML SYRINGE SQ SCH ×2 (07:35→20:59)
[2020-07-27] MEDS: CHOLECALCIFEROL 25 MCG (1000 IU) TABLET PO SCH (07:39)
[2020-07-27] MEDS: PANTOPRAZOLE 40 MG TABLET PO SCH ×2 (07:39→21:00)
[2020-07-27] MEDS: ZINC SULFATE 220 MG CAP PO SCH (07:39)
[2020-07-27] MEDS: BENZONATATE 100 MG CAP PO SCH ×3 (07:39→21:00)
[2020-07-27] MEDS: FLUCONAZOLE 100 MG TAB PO SCH (07:39)
[2020-07-27] MEDS: METOPROLOL TARTRATE 12.5 MG TAB PO SCH (07:40)
[2020-07-27] MEDS: ASCORBIC ACID 500 MG TAB PO SCH (07:40)
[2020-07-27] MEDS: NON FORMULARY DRUG (Potassium Gluconate [Potassium Gluconate] 99 MG Tablet.Er) PO SCH (07:41)
[2020-07-27] MEDS: POTASSIUM CHLORIDE ER 20 MEQ TAB.ER PO SCH (07:43)
[2020-07-27] MEDS: FLUTICASONE 50MCG/SPRAY NASAL 16GM EA NOSTRIL SCH (07:43)
[2020-07-27] MEDS: BUMETANIDE 0.25 MG/ML 4 ML VIAL IVP SCH ×2 (08:03→21:00)
--- NOTE | 2020-07-27 09:26 | XR ---
EXAMINATION TYPE: XR chest 1V portable DATE OF EXAM: 07/27/2020 COMPARISON: 07/24/2020 HISTORY: Shortness of breath TECHNIQUE: Single frontal view of the chest is obtained. FINDINGS: Coarsened interstitium seen with elevated right hemidiaphragm and basilar consolidation. H eart is enlarged. No pneumothorax. Diffuse osteopenia. No sizable pleural effusion. IMPRESSION: 1. Bilateral pleural-parenchymal changes are stable correlate for pneumonia.
[2020-07-27] MEDS: metOLazone 2.5 MG TAB PO SCH (11:22)
[2020-07-27] MEDS: CHOLESTYRAMINE (WITH SUGAR) 4 GM PACKET PO SCH ×2 (11:22→17:15)
[2020-07-27 11:38] LABS: Glucose,Whole Blood 163 mg/dL (75-99)
--- NOTE | 2020-07-27 12:55 | P.PN ---
Subjective Progress Note Date: 07/27/20 74-year-old morbidly obese female one of my office patient with past medical history of A. fib with RVR, history of acute gastrointestinal bleed with anemia, history of type 2 diabetes, history of obstructive sleep apnea, mild reactive airway/COPD and mild diastolic congestive heart failure who has been seen in the office the last week for acute Covid, patient was diagnosed on the ended up going for monoclonal anti-body infusion on the . Patient called office with worsening symptoms was seen in virtual visit and was recommended to go to the hospital to be admitted. Patient has been having worsening dyspnea and shortness of breath along with severe hypoxia worsening persistent cough prod uctive of phlegm along with mild twinges of blood. Patient was seen at the emergency department her pulse ox was in the 80 percentile with a few breathing treatment along with 3 L of O2 her pulse ox was increased to the low 90. Patient chest x-ray showed severe interstitial pneumonitis. Her d-dimer was elevated and ended up going for CTA showed extensive ground glass pulmonary interstitial edema could be related to RDS no pleural effusion found at the time. Patient was started on steroids along with updraft treatment O2 will consult pulmonary admit patient to the hospital. 2/2: The patient states that she is feeling much better today. She states that she did not sleep well last night. She is found sitting up in recliner and appears to be comfortable and in no acute distress. She has been afebrile, heart rate 72, blood pressure 160/83, pulse ox 92-98% on 5 L nasal cannula. Consult in place from pulmonary medicine. Blood sugars are running in the 200s. WBC 8, hemoglobin 10.1. Repeat lactic acid 1.7. IV fluids will be discontinued. Patient is on her home dose of Bumex. 2/3: Patient has been afebrile, heart rate 79, blood pressure 162/69, pulse ox 93% on 10 L nasal cannula. Patient complains of shortness of breath and feeling cold. She continues to cough. WBC is 18.5, hemoglobin 10.4, electrolytes normal. Creatinine 0.9. Total bilirubin 0.9, AST 88, ALT 44, alkaline phosphatase 143, LDH 943, C reactive protein 6.6. Overall, inflammatory markers are improving. Patient has been seen by pulmonary medicine and is outside of the window for Remdesivir treatment. Colchicine was added 07/19:tates that she was unable to sleep all night. She was on a nonrebreather and she felt she had a panic attack. She states that she is normally claustrophobic. She is currently seen on 15 L with pulse ox of 91%. She appears to be comfortable at rest. She is complaining of dark brown sputum production. She is also having mild nosebleed with dried blood only. Blood sugars are running between 257-300. D-dimer 8.72. LDH and CRP are pending. Patient has been afebrile, heart rate 82, blood pressure 144/51. She will probably not be ready for discharge until Thursday. 07/20: Patient has developed increasing shortness of breath overnight. She is now requiring high flow nasal cannula and nonrebreather with pulse ox of 91-95%. She has been afebrile, heart rate 77, blood pressure 178/79. Blood sugars are running between 132 and 261. Convalescent plasma has been ordered by pulmonary medicine today. Steroids have been changed to Solu-Medrol 60 mg IV every 6 melly rs. Lovenox increased to 70 mg subcu twice daily. Antibiotics in the form of Augmentin. 07/21: Patient states that she is feeling better compared to yesterday. She continues to be on 15 L high flow not nasal cannula and nonrebreather. We'll continue to attempt to wean. Receiving Bumex 2 mg IV. Continues to have lower extremity swelling bilaterally. Patient received [address] asma. She was complaining of dryness to bilateral nares. Flonase added. Patient remains afebrile, pulse rate 56, blood pressure 167/73, pulse ox 94% on nonrebreather and high flow oxygen. Discussed with patient's CODE STATUS. Patient states that she does not want to be intubated or have CPR performed. We will change her CODE STATUS to no code. 07/22: Patient is found sitting up in chair continue to utilize 15 L of high flow oxygen be significantly cannula nonrebreather pulse oxing 98%. Patient states that she is feeling better able to breathe easier. She has been having diarrhea for the past few days 3-4 episodes yesterday and only one today. Patient denies any abdominal discomfort or blood in stool. She is currently on Augmentin. We will do stool cultures including C. diff. 07/23: Patient remains on high flow nasal cannula 15 L with nonrebreather at her bedside. She is pulse oxing 91 and 94%. She's been afebrile, heart rate in the 70s, blood pressure 123/74. Blood sugars have been between 193 and 339. Anticipate need for oxygen at home. 07/24: Patient is on oxygen at 15 L high flow nasal cannula with pulse ox of 95%. She has been afebrile, heart rate 74, blood pressure 135/75. WBC 9.8, hemoglobin 10.3, platelet count 95. Sodium 136, potassium 3. former be replaced . BUN 35 and creatinine 1. Blood sugars running in the 200s. AST 37, ALT 48. Anticipate that the patient will require home oxygen at the time of discharge. 07/25: Pulse ox is 93% on 15 L high flow nasal cannula and partial rebreather. She's been afebrile, heart rate 89, blood pressure 127/74. Blood sugars running between 128 and 262. Repeat chest x-ray reveals stable findings. Correlate for pneumonia. Patient has been maintained on Augmentin, colchicine, Lovenox, IV Solu-Medrol and supplements. We'll order one additional dose of Bumex this afternoon. 07/26: Patient continues to have cough with hemoptysis, she has shortness of breath with minimal activity. Pulse ox is 91-95% on 15 L high flow nasal cannula. We will add in Tessalon pearls. She continues to have thrush for whic h she is on Diflucan. Bumex increased to 2 mg IV push twice daily. She has been afebrile, heart rate 77, blood pressure 143/68. Repeat blood work reveals WBC 9, hemoglobin 11.2, platelet count 87. Sodium 136, potassium 3.7, CO2 34, BUN 44 and creatinine 0.8. Blood sugars are running 186-237. AST at 73, ALT 73. Repeat LDH 732. C-reactive protein less than 5. Patient will continue treatment in the hospital until oxygenation is improved and she is down to 5 or 6 L nasal cannula. 07/27: Patient is pulse oxing 91-95% on 15 L high flow nasal cannula. She has been afebrile, heart rate 80, blood pressure 139/81. Blood sugars are running between 163 and 246. Patient is continued on IV Solu-Medrol, supplements, Lovenox. REVI EW OF SYSTEMS CONSTITUTIONAL: Well-developed with moderate respiratory distress. Denies fevers. Denies chills. EYES: No icterus sclerae, no conjunctivitis. EARS, NOSE, MOUTH, THROAT, and FACE: No sore throat, lymphadenopathy, carotid b ruits or deformity. RESPIRATORY: Moderate dyspnea and shortness of breath and cough. Dyspnea with e xertion. Dyspnea at rest. CARDIOVASCULAR: Positive PND orthopnea . Denies palpitation with no angina. GASTROINTESTINAL: No Abd pain, Nausea or vomiting, no Diarrhea or constipation, No GI Bleed, no distention or masses. GENITOURINARY: Negative for Hematuria or UTI, no kidney stones. INTEGUMENT/BREAST: Negative for any muscular injury with mild osteoarthritis. Chronic edema. HEMATOLOGIC/LYMPHATIC: Negative for bleed or purpura. MUSCULOSKELTAL: Negative for Myalgia or arthralgia. Significant arthralgia and myalgia. NEURLOGICAL: No LOC, Sz or syncope, blurred vision dizziness or abnormality.. BEHAVIORAL/PSYCH: Negative. ENDOCRLavina blood sugars PHYSICAL EXAMINATION General Appearance: Alert, cooperative, morbidly obese in no respiratory distress. Patient is resting comfortably in chair. Neck HEENT: Supple, no lymphadenopathy, no thyroid enlargement, no carotid bruits. Lungs: Decreased breath some bilateral expiratory wheezes. Positive mild acces joe muscle usage Chest Wall: Decrease expansion with deep inspiration no tenderness and no deformity was found on exam, no costochondral pain or discomfort. Heart: Regular rate and rhythm, S1, S2 positive systolic murmur with S3. Back: Symmetric, no curvature, ROM normal, no CVA tenderness. Abdomen: Soft, non-tender, bowel sounds active all four quadrants, no masses, no organomegaly. Extremities: 1+ edema and decreased pulses bilaterally. Pulses: 1+ and symmetric. Skin: Skin color, texture, tugor normal, no rashes or lesions. Neurologic: Alert oriented x3 cranial nerves II through XII intact, no motor deficit, no abnormal balance or gait. ASSESSMENT AND PLAN 1 acute hypoxic respiratory failure secondary to acute Covid pneumonitis with worsening symptoms. Consult with pulmonary medicine. Continue Solu-Medrol 60 mg IV every 6 hours, convalescent plasma, Augmentin, vitamin C, vitamin D, colchicine, oxygen support, lovenox increased to 70 mg twice daily. Bumex increased to 2 mg IV push twice daily. Tessalon Perles added. Telemetry will be discontinued. 2 acute Covid pneumonitis with worsening symptoms. Continue as in #1. 3 COPD continue albuterol inhaler. 4. Paroxysmal atrial fibrillation, unable to tolerate anticoagulation secondary to acute GI bleed, continue metoprolol 12.5 mg twice daily and flecainide 50 mg twice a day. 5 type 2 diabetes, uncontrolled with hyperglycemia secondary to steroids. Continue Accu-Chek with sliding scales coverage continue Lantus at 45 units daily and still on Januvia. And scheduled NovoLog 3u increased to 6 units with meals. 6 chronic diastolic heart failure. Continue Bumex 1 mg twice branodn IV y, Lopr essor. 7 peptic ulcer disease and GI prophylaxis: Continue patient on pantoprazole 40 mg daily. 8 chronic anemia: Remain on iron supplement and multivitamins no need for transfusion. 9 mild hyponatremia: Most likely SIADH from pneumonia will continue mild gentle hydration repeat chemistry in the next 24 hours. 10 DVT prophylaxis: Patient will be on Lovenox subcutaneous daily. 11 GI prophylaxis: Will be on pantoprazole. 12. Diarrhea. Stool cultures. C. diff negative. Diarrhea most likely secondary to Augmentin. CODE STATUS: No Code DISCHARGE PLAN Most likely home next week. Patient may require home oxygen. Impression and plan of care have been directed as dictated by the signing physician. Leeann Rose nurse practitioner acting as scribe for signing physician. Objective - Vital Signs Vital signs: Vital Signs Temp 97.4 F L 07/27/20 05:25 Pulse 68 07/27/20 05:25 Resp 18 07/27/20 05:25 BP 147/72 07/27/20 05:25 Pulse Ox 95 07/27/20 05:25 Intake & Output 07/26/20 07/27/20 07/27/20 18:59 06:59 18:59 Intake Total 768 Output Total 400 1150 200 Balance 368 -1150 -200 Weight 131 kg Intake: Oral 768 Output: Urine 400 1150 200 Other: Voiding Method Bedside Commode # Bowel Movements 1 - Labs CBC & Chem 7: 07/26/20 09:50 07/26/20 09:50 Labs: Abnormal Lab Results - Last 24 Hours (Table) 07/26/20 07/26/20 07/26/20 Range/Units 09:50 09:50 09:50 Hgb 11.2 L (11.4-16.0) gm/dL MCV 76.2 L (80.0-100.0) fL MCH 21.8 L (25.0-35.0) pg MCHC 28.7 L (31.0-37.0) g/dL RDW 16.5 H (11.5-15.5) % Plt Count 87 L (150-450) k/uL D-Dimer 2.81 H (<0.60) mg/L FEU Sodium 136 L (137-145) mmol/L Chloride 95 L (98-107) mmol/L Carbon Dioxide 34 H (22-30) mmol/L BUN 44 H (7-17) mg/dL Glucose 273 H (74-99) mg/dL POC Glucose (mg/dL) (75-99) mg/dL Calcium 8.0 L (8.4-10.2) mg/dL AST 73 H (14-36) U/L ALT 87 H (4-34) U/L Lactate Dehydrogenase 932 H (313-618) U/L Albumin 2.7 L (3.5-5.0) g/dL 07/26/20 07/26/20 07/26/20 Range/Units 11:54 17:02 20:05 Hgb (11.4-16.0) gm/dL MCV (80.0-100.0) fL MCH (25.0-35.0) pg MCHC (31.0-37.0) g/dL RDW (11.5-15.5) % Plt Count (150-450) k/uL D-Dimer (<0.60) mg/L FEU Sodium (137-145) mmol/L Chloride (98-107) mmol/L Carbon Dioxide (22-30) mmol/L BUN (7-17) mg/dL Glucose (74-99) mg/dL POC Glucose (mg/dL) 237 H 176 H 205 H (75-99) mg/dL Calcium (8.4-10.2) mg/dL AST (14-36) U/L ALT (4-34) U/L Lactate Dehydrogenase (313-618) U/L Albumin (3.5-5.0) g/dL 07/27/20 Range/Units 07:14 Hgb (11.4-16.0) gm/dL MCV (80.0-100.0) fL MCH (25.0-35.0) pg MCHC (31.0-37.0) g/dL RDW (11.5-15.5) % Plt Count (150-450) k/uL D-Dimer (<0.60) mg/L FEU Sodium (137-145) mmol/L Chloride (98-107) mmol/L Carbon Dioxide (22-30) mmol/L BUN (7-17) mg/dL Glucose (74-99) mg/dL POC Glucose (mg/dL) 246 H (75-99) mg/dL Calcium (8.4-10.2) mg/dL AST (14-36) U/L ALT (4-34) U/L Lactate Dehydrogenase (313-618) U/L Albumin (3.5-5.0) g/dL Microbiology - Last 24 Hours (Table) 07/24/20 Unknown Gram Stain - Final Sputum Sputum Culture - Final Vianey albicans 07/22/20 12:00 Stool Culture - Final Stool Vianey albicans
--- NOTE | 2020-07-27 15:22 | P.PN ---
Subjective Progress Note Date: 07/27/20 74-year-old female who was seen in the emergency department on 07/16/2020, at 1535. The patient presented with complaints of shortness of breath. The patient has a history of atrial fibrillation, obesity, congestive heart failure, and diabetes. She apparently was diagnosed with COVID 19 infection on July 09. Prior to being tested positive, the patient had 2 weeks of what she describes as a head cold. She started taking vitamins, and Decadron. More recently, she's been getting progressively worse as it relates to her shortness of breath, which now occurs on any activity. She does have some nausea, but denies any vomiting or diarrhea. She denies any chest pain. She denies any genitourinary complaints and lower extremity edema. Apparently her family doctor recommended that she come into the emergency room to be evaluated. A chest x-ray reveals some mild pulmonary interstitial pneumonia, and the CT angiogram revealed no evidence of any central or large pulmonary emboli, but did show extensive groundglass pulmonary interstitial infiltrates, consistent with her diagnosis of COVID19 pneumonia. Unfortunately, she is beyond the window for remdesivir. Currently, she is on 5 L nasal cannula, and her saturations are 99%. Her respiratory rate is 20, and her temperature is 97.6F. Blood pressure is good and heart rate is 71 bpm. Her current white count is 8.09, hemoglobin 10.1, hematocrit 34.7, and platelet count 137,000. Sodium is 135, potassium 4.9, chlorides 102, CO2 25, anion gap 8, BUN 17, and creatinine 0.8. D-dimer is 1.21, ferritin is 624, LDH is 1468, and C-reactive protein is 139. N-terminal proBNP was 1970. Pro-calcitonin level was 0.20. On 07/18/2020 patient seen in follow-up on medical floor, she is currently on 11 L of oxygen, she is awake and alert, she said nobody into the bed, apparently earlier she felt a little dizzy, she feels fatigued, be in no acute distress. Today's labs have been reviewed, showing white blood cell count of 18.5, hemoglo bin is 10.4, his inflammatory markers are trending down, LDH is down to 943, CRP is down to 6.6, pro calcitonin level was 0.20. Continues on prophylactic dose of Lovenox, IV Decadron 6 mg daily, colchicine, and zinc On 07/19/2020 patient seen in follow-up on medical floor. She is currently up to 2 L of oxygen, her pulse ox is 91-94%, she states she feels better but she is requiring more oxygen, she states she is coughing up some phlegm. Today's chest x-ray has been reviewed showing central vascularity and interstitial increased, bilateral groundglass opacity within the lungs. And there is persistent elevation of the right hemidiaphragm. Patient seems to have increased edema in her lower extremities, she is currently on a daily dose of oral Bumex 1 mg daily, her lung sounds positive for scattered rhonchi. We will add empiric antibiotics, will afternoon dose of oral Bumex and obtain follow-up chest x-ray tomorrow. Physically she states she is feeling better, she is able to clear some phlegm. On 07/20/2020 patient seen in follow-up on medical floor, her oxygen requirements are continuously increasing, currently up to 15 L of oxygen per high flow nasal cannula and partial nonrebreather and her pulse ox is between 91-95%, afebrile. She is more dyspneic today, her lower extremities remain swollen, we did give the patient a dose of diuretics yesterday, however her neck fluid balance is very difficult to estimate. Her inflammatory markers have been reviewed, and pH is down to 780, and CRP is at 9.4, pro calcitonin level has decreased and is down to 0.12, however d-dimer has trended down and is up to 8.72, and we will adjust the dose of Lovenox to 0.5 mg/kg of body weight twice daily. Based Effexor has been reviewed showing worsening airspace disease, pneumonia and pulmonary edema. The patient is seen today 07/21/2020 in follow-up on the regular medical floor. She is currently sitting up in a chair at the bedside. Awake and alert in no acute distress. She is still requiring 15 L high flow nasal cannula along with 15 L partial rebreather mask. O2 saturations in the low 90s. She is afebrile. She has received 1 unit of convalescent plasma. White count 16.2. Hemoglobin 10.2. Lymphocytes 0.3. Sodium 138. Potassium 3.8. Creatinine 0.8. She is on antibiotics in the form of Augmentin. Continue on vitamin supplements. Remains on colchicine, IV Solu-Medrol, Lovenox. The patient is seen today 07/22/2020 in follow-up on the regular medical floor. She is awake and alert in no acute distress. Sitting up in a chair at the bedside. She is still requiring 15 L high flow nasal cannula along with a partial nonrebreather mask to maintain O2 saturations in the low 90s. Chest x- ray continues to show bilateral airspace infiltrates however there is some interval improvement. She did receive 1 unit of convalescent plasma. D-dimer 7.56. LDH 531. C-reactive protein 3.3. She remains on colchicine, IV Solu- Medrol, Lovenox, vitamin supplements, Augmentin. On 07/23/2020, the patient is being seen for a follow-up. The patient is doing well pH is essentially the same as yesterday. No worsening shortness of breath. She is off the nonrebreather facemask and she is utilizing on a 15 L of oxygen by nasal cannula. She is still currently receiving treatment for Covid 19. She received a dose of, less than plasma. She is also oncolchicine, IV Solu-Medrol, Lovenox, vitamin supplements, Augmentin. The patient's blood sugar is slightly elevated and they're being managed by sliding scale insulin coverage. She is also taking Levemir insulin 45 units daily in addition to Trajenda. The d-dimer is at 7.56. The patient is on Lovenox 70 mg subcu every 12 hours. She is also receiving Bumex 1 mg IV twice a day as diuretics. 07/24/2020 the patient is being seen for a follow-up regarding Covid 19 related pneumonia. The patient has a acute hypoxic respiratory failure and the patient is currently on oxygen at 15 L high flow earlier this morning with a pulse ox of 95%. However, the patient prefers to also put on a nonrebreather mask which makes her more comfortable. She seems to be more so than mouth breather. She is afebrile. A follow-up chest x-ray has not been done today. She remains on IV Solu-Medrol, colchicine, Lovenox and multivitamins. She is on Augmentin as an empiric antibiotic coverage. Her blood sugars today are fine as 204. White cell count of 9.8 with hemoglobin of 10.3. Platelet count is 95 and compared to the earlier evaluations, there is a drop in the platelet count. The CRP level from 07/22/2020 was 3.3, LDH level was 531 and were supposed to obtain a follow- up chest x-ray and an inflammatory markers and this has not been done. She is currently on Bumex 1 mg IV push every 12 hours. On 07/25/2020, I'm seeing the patient for a follow-up. The patient as stated earlier has COVID 19 pneumonia. The patient is an acute hypoxic respiratory failure. She is requiring 15 liters oxygen. She is also requiring a nonrebreather facemask on top of the 15 L of oxygen by nasal cannula. The patient continues to have difficulties with shortness of breath and she desaturates down to the mid 80s. I think it's reasonable to consider switching this patient to a high flow nasal cannula system. She remains on IV Solu-Medrol pH is also on colchicine, Lovenox and multivitamins. Inflammatory markers from today are still pending. LDH from yesterday was 1146 and the d-dimer was at 3.6. The patient has no other complaints otherwise for now. On today's evaluation of 07/26/2020, the patient is only on 15 L of oxygen by nasal cannula and she is feeling well with a pulse ox of 95%. She is not utili zing her nonrebreather facemask. She is sitting up on a chair. She is calm and comfortable. No nausea vomiting or abdominal pain. No chest pain. She continues to have some crackers in the mid and lower lung his bilaterally. She remains on IV Solu-Medrol. She has also on a combination of Lovenox, colchicine and multivitamins. There is a inflammatory markers, the patient is showing a CRP level of less than 5, LDH level is 932. D-dimer is at 2.81. The white cell count of 9 with hemoglobin 11.2 and the platelet count is at 87. The patient is currently on Lovenox 70 mg subcu every 12 hours. This is essentially half a therapeutic dose. She is also on colchicine 0.6 mg by mouth twice a day and IV Sandostatin Medrol 60 mg every 6 hours. No major side effects from the systemic steroids. She is taking Diflucan. She is also negative. Insulin 45 units subcu along with a 6 units 3 times a day with meals and ascites care coverage. Her Bumex dose of 2 mg IV every 12 hours which has helped with her lower extremity edema. 07/27/2020 the patient remains on 15 L about 2 by nasal cannula. I tried to cut her down to 13 L. He is doing well. She has no specific complaints. She is s itting up on a chair. She Solu-Medrol. She is also taking Diflucan. No nausea. No vomiting. No abdominal pain. No chest pain. Sugars are being monitored. The d-dimer is down to 2.81. Had CRP is less than 5 and the LDH is down to 932. I think the patient is slowly improving. She still requiring high flow oxygen. We'll continue our office to wean down FiO2 as tolerated to maintain a saturation above 90%. The chest x-ray findings from today showed bilateral pleural parenchymal changes and pulmonary infiltrates consistent with Covid 19 related pneumonia. The patient is also on a combination of Lovenox, colchicine and multivitamins related to Covid 19 related infection. Objective - Vital Signs Vital signs: Vital Signs Temp 97.2 F L 07/27/20 14:00 Pulse 71 07/27/20 14:00 Resp 18 07/27/20 14:00 BP 131/68 07/27/20 14:00 Pulse Ox 94 L 07/27/20 14:00 Intake & Output 07/26/20 07/27/20 07/27/20 18:59 06:59 18:59 Intake Total 768 Output Total 400 1150 1100 Balance 368 -1150 -1100 Weight 131 kg Intake: Oral 768 Output: Urine 400 1150 1100 Other: Voiding Method Bedside Commode # Bowel Movements 1 - Exam GENERAL EXAM: Alert, very pleasant, obese 74-year-old female patient 15 L of oxygen HEAD: Normocephalic/atraumatic. EYES: Normal reaction of pupils, equal size. Conjunctiva pink, sclera white. NOSE: Clear with pink turbinates. THROAT: No erythema or exudates. NECK: No masses, no JVD, no thyroid enlargement, no adenopathy. CHEST: No chest wall deformity. Symmetrical expansion. LUNGS: Equal air entry with bilateral scattered rhonchi CVS: Regular rate and rhythm, normal S1 and S2, no gallops, no murmurs, no rubs ABDOMEN: Soft, nontender. No hepatosplenomegaly, normal bowel sounds, no guarding or rigidity. EXTREMITIES: No clubbing,has edema, no cyanosis, 2+ pulses and upper and lower extremities. MUSCULOSKELETAL: Muscle strength and tone normal. SPINE: No scoliosis or deformity SKIN: No rashes CENTRAL NERVOUS SYSTEM: Alert and oriented -3. No focal deficits, tone is normal in all 4 extremities. PSYCHIATRIC: Alert and oriented -3. Appropriate affect. Intact judgment and insight. - Labs CBC & Chem 7: 07/26/20 09:50 07/26/20 09:50 Labs: Abnormal Lab Results - Last 24 Hours (Table) 07/26/20 07/26/20 07/27/20 Range/Units 17:02 20:05 07:14 POC Glucose (mg/dL) 176 H 205 H 246 H (75-99) mg/dL 07/27/20 Range/Units 11:35 POC Glucose (mg/dL) 163 H (75-99) mg/dL Microbiology - Last 24 Hours (Table) 07/24/20 Unknown Gram Stain - Final Sputum Sputum Culture - Final Vianey albicans Assessment and Plan Plan: 1. Acute hypoxemic respiratory failure secondary to COVID 19 pneumonia. Currently on 15 L high flow nasal cannula , inflammatory markers are improving, still on IV Solu-Medrol, still on a 0.5 mg subcu Lovenox every 12 hours in addition to colchicine and she is also on vitamin supplements. Doing well. She is off the nonrebreather facemask and she is utilizing only at 15 L which can be furthermore weaned down. 2 History of diabetes mellitus. 3 History of atrial fibrillation, the patient currently is in a sinus rhythm 4 History of congestive heart failure. 5 History of osteoarthritis. 6 History of chronic back pain. 7 Status post lap band surgery for obesity. 8 History of deafness. Plan: We'll tryto wean down the FiO2 to maintain a saturation above 90% , I dropped her down to 13 L and she is currently off the 100% nonrebreather facemask and the patient's inflammatory markers are improving. Chest x-ray findings are stable Continue current treatment Obtain serum inflammatory markers including LDH, CRP, and d-dimer in a.m. Continue the combination of IV Solu-Medrol, colchicine, Lovenox and the patient has already received a total of 2 units of convalescent plasma Continue Lovenox 70 mg subcu every 12 hours IV Bumex 2 mg every 12 hours Blood sugar management with Lantus and sliding-scale coverage insulin We will follow
[2020-07-27 16:27] LABS: Glucose,Whole Blood 163 mg/dL (75-99)
[2020-07-27] MEDS: LINAGLIPTIN 5 MG TABLET PO SCH (21:00)
[2020-07-27 21:06] LABS: Glucose,Whole Blood 227 mg/dL (75-99)
[2020-07-28] MEDS: ACETAMINOPHEN TAB 325 MG TAB PO PRN ×3 (02:39→18:04)
[2020-07-28] MEDS: methylPREDNISolone SOD SUCCI 125 MG/2 ML VIAL IV SCH ×4 (05:18→23:07)
[2020-07-28 07:18] LABS: Glucose,Whole Blood 133 mg/dL (75-99)
[2020-07-28] MEDS: ALBUTEROL HFA INHALER INHALATION PRN ×3 (07:42→20:25)
[2020-07-28] MEDS: PANTOPRAZOLE 40 MG TABLET PO SCH ×2 (07:52→21:02)
[2020-07-28] MEDS: METOPROLOL TARTRATE 12.5 MG TAB PO SCH (07:53)
[2020-07-28] MEDS: POTASSIUM CHLORIDE ER 20 MEQ TAB.ER PO SCH (07:53)
[2020-07-28] MEDS: BENZONATATE 100 MG CAP PO SCH ×3 (07:53→21:02)
[2020-07-28] MEDS: ZINC SULFATE 220 MG CAP PO SCH (07:53)
[2020-07-28] MEDS: FLUCONAZOLE 100 MG TAB PO SCH (07:53)
[2020-07-28] MEDS: ASCORBIC ACID 500 MG TAB PO SCH (07:54)
[2020-07-28] MEDS: CHOLECALCIFEROL 25 MCG (1000 IU) TABLET PO SCH (07:54)
[2020-07-28] MEDS: INSULIN ASPART (NovoLOG) 100 UNIT/ML VIAL SQ SCH ×7 (07:55→21:02)
[2020-07-28] MEDS: BUMETANIDE 0.25 MG/ML 4 ML VIAL IVP SCH (07:55)
[2020-07-28] MEDS: COLCHICINE 0.6 MG EACH PO SCH ×2 (07:56→21:02)
[2020-07-28] MEDS: ENOXAPARIN 80 MG/0.8 ML SYRINGE SQ SCH ×2 (07:57→21:02)
[2020-07-28] MEDS: NON FORMULARY DRUG (Potassium Gluconate [Potassium Gluconate] 99 MG Tablet.Er) PO SCH (07:58)
[2020-07-28] MEDS: FLECAINIDE 50 MG TAB PO SCH ×2 (07:58→21:02)
[2020-07-28] MEDS: FLUTICASONE 50MCG/SPRAY NASAL 16GM EA NOSTRIL SCH (07:59)
[2020-07-28] MEDS: CHOLESTYRAMINE (WITH SUGAR) 4 GM PACKET PO SCH ×2 (08:39→18:02)
[2020-07-28] MEDS: INSULIN DETEMIR (LEVEMIR) 100 UNIT/ML SYR SQ SCH (08:39)
[2020-07-28 12:13] LABS: Glucose,Whole Blood 295 mg/dL (75-99)
--- NOTE | 2020-07-28 14:11 | P.PN ---
Subjective Progress Note Date: 07/28/20 74-year-old female who was seen in the emergency department on 07/16/2020, at 1535. The patient presented with complaints of shortness of breath. The patient has a history of atrial fibrillation, obesity, congestive heart failure, and diabetes. She apparently was diagnosed with COVID 19 infection on July 09. Prior to being tested positive, the patient had 2 weeks of what she describes as a head cold. She started taking vitamins, and Decadron. More recently, she's been getting progressively worse as it relates to her shortness of breath, which now occurs on any activity. She does have some nausea, but denies any vomiting or diarrhea. She denies any chest pain. She denies any genitourinary complaints and lower extremity edema. Apparently her family doctor recommended that she come into the emergency room to be evaluated. A chest x-ray reveals some mild pulmonary interstitial pneumonia, and the CT angiogram revealed no evidence of any central or large pulmonary emboli, but did show extensive groundglass pulmonary interstitial infiltrates, consistent with her diagnosis of COVID19 pneumonia. Unfortunately, she is beyond the window for remdesivir. Currently, she is on 5 L nasal cannula, and her saturations are 99%. Her respiratory rate is 20, and her temperature is 97.6F. Blood pressure is good and heart rate is 71 bpm. Her current white count is 8.09, hemoglobin 10.1, hematocrit 34.7, and platelet count 137,000. Sodium is 135, potassium 4.9, chlorides 102, CO2 25, anion gap 8, BUN 17, and creatinine 0.8. D-dimer is 1.21, ferritin is 624, LDH is 1468, and C-reactive protein is 139. N-terminal proBNP was 1970. Pro-calcitonin level was 0.20. On 07/18/2020 patient seen in follow-up on medical floor, she is currently on 11 L of oxygen, she is awake and alert, she said nobody into the bed, apparently earlier she felt a little dizzy, she feels fatigued, be in no acute distress. Today's labs have been reviewed, showing white blood cell count of 18.5, hemoglo bin is 10.4, his inflammatory markers are trending down, LDH is down to 943, CRP is down to 6.6, pro calcitonin level was 0.20. Continues on prophylactic dose of Lovenox, IV Decadron 6 mg daily, colchicine, and zinc On 07/19/2020 patient seen in follow-up on medical floor. She is currently up to 2 L of oxygen, her pulse ox is 91-94%, she states she feels better but she is requiring more oxygen, she states she is coughing up some phlegm. Today's chest x-ray has been reviewed showing central vascularity and interstitial increased, bilateral groundglass opacity within the lungs. And there is persistent elevation of the right hemidiaphragm. Patient seems to have increased edema in her lower extremities, she is currently on a daily dose of oral Bumex 1 mg daily, her lung sounds positive for scattered rhonchi. We will add empiric antibiotics, will afternoon dose of oral Bumex and obtain follow-up chest x-ray tomorrow. Physically she states she is feeling better, she is able to clear some phlegm. On 07/20/2020 patient seen in follow-up on medical floor, her oxygen requirements are continuously increasing, currently up to 15 L of oxygen per high flow nasal cannula and partial nonrebreather and her pulse ox is between 91-95%, afebrile. She is more dyspneic today, her lower extremities remain swollen, we did give the patient a dose of diuretics yesterday, however her neck fluid balance is very difficult to estimate. Her inflammatory markers have been reviewed, and pH is down to 780, and CRP is at 9.4, pro calcitonin level has decreased and is down to 0.12, however d-dimer has trended down and is up to 8.72, and we will adjust the dose of Lovenox to 0.5 mg/kg of body weight twice daily. Based Effexor has been reviewed showing worsening airspace disease, pneumonia and pulmonary edema. The patient is seen today 07/21/2020 in follow-up on the regular medical floor. She is currently sitting up in a chair at the bedside. Awake and alert in no acute distress. She is still requiring 15 L high flow nasal cannula along with 15 L partial rebreather mask. O2 saturations in the low 90s. She is afebrile. She has received 1 unit of convalescent plasma. White count 16.2. Hemoglobin 10.2. Lymphocytes 0.3. Sodium 138. Potassium 3.8. Creatinine 0.8. She is on antibiotics in the form of Augmentin. Continue on vitamin supplements. Remains on colchicine, IV Solu-Medrol, Lovenox. The patient is seen today 07/22/2020 in follow-up on the regular medical floor. She is awake and alert in no acute distress. Sitting up in a chair at the bedside. She is still requiring 15 L high flow nasal cannula along with a partial nonrebreather mask to maintain O2 saturations in the low 90s. Chest x- ray continues to show bilateral airspace infiltrates however there is some interval improvement. She did receive 1 unit of convalescent plasma. D-dimer 7.56. LDH 531. C-reactive protein 3.3. She remains on colchicine, IV Solu- Medrol, Lovenox, vitamin supplements, Augmentin. On 07/23/2020, the patient is being seen for a follow-up. The patient is doing well pH is essentially the same as yesterday. No worsening shortness of breath. She is off the nonrebreather facemask and she is utilizing on a 15 L of oxygen by nasal cannula. She is still currently receiving treatment for Covid 19. She received a dose of, less than plasma. She is also oncolchicine, IV Solu-Medrol, Lovenox, vitamin supplements, Augmentin. The patient's blood sugar is slightly elevated and they're being managed by sliding scale insulin coverage. She is also taking Levemir insulin 45 units daily in addition to Trajenda. The d-dimer is at 7.56. The patient is on Lovenox 70 mg subcu every 12 hours. She is also receiving Bumex 1 mg IV twice a day as diuretics. 07/24/2020 the patient is being seen for a follow-up regarding Covid 19 related pneumonia. The patient has a acute hypoxic respiratory failure and the patient is currently on oxygen at 15 L high flow earlier this morning with a pulse ox of 95%. However, the patient prefers to also put on a nonrebreather mask which makes her more comfortable. She seems to be more so than mouth breather. She is afebrile. A follow-up chest x-ray has not been done today. She remains on IV Solu-Medrol, colchicine, Lovenox and multivitamins. She is on Augmentin as an empiric antibiotic coverage. Her blood sugars today are fine as 204. White cell count of 9.8 with hemoglobin of 10.3. Platelet count is 95 and compared to the earlier evaluations, there is a drop in the platelet count. The CRP level from 07/22/2020 was 3.3, LDH level was 531 and were supposed to obtain a follow- up chest x-ray and an inflammatory markers and this has not been done. She is currently on Bumex 1 mg IV push every 12 hours. On 07/25/2020, I'm seeing the patient for a follow-up. The patient as stated earlier has COVID 19 pneumonia. The patient is an acute hypoxic respiratory failure. She is requiring 15 liters oxygen. She is also requiring a nonrebreather facemask on top of the 15 L of oxygen by nasal cannula. The patient continues to have difficulties with shortness of breath and she desaturates down to the mid 80s. I think it's reasonable to consider switching this patient to a high flow nasal cannula system. She remains on IV Solu-Medrol pH is also on colchicine, Lovenox and multivitamins. Inflammatory markers from today are still pending. LDH from yesterday was 1146 and the d-dimer was at 3.6. The patient has no other complaints otherwise for now. On today's evaluation of 07/26/2020, the patient is only on 15 L of oxygen by nasal cannula and she is feeling well with a pulse ox of 95%. She is not utili zing her nonrebreather facemask. She is sitting up on a chair. She is calm and comfortable. No nausea vomiting or abdominal pain. No chest pain. She continues to have some crackers in the mid and lower lung his bilaterally. She remains on IV Solu-Medrol. She has also on a combination of Lovenox, colchicine and multivitamins. There is a inflammatory markers, the patient is showing a CRP level of less than 5, LDH level is 932. D-dimer is at 2.81. The white cell count of 9 with hemoglobin 11.2 and the platelet count is at 87. The patient is currently on Lovenox 70 mg subcu every 12 hours. This is essentially half a therapeutic dose. She is also on colchicine 0.6 mg by mouth twice a day and IV Sandostatin Medrol 60 mg every 6 hours. No major side effects from the systemic steroids. She is taking Diflucan. She is also negative. Insulin 45 units subcu along with a 6 units 3 times a day with meals and ascites care coverage. Her Bumex dose of 2 mg IV every 12 hours which has helped with her lower extremity edema. 07/27/2020 the patient remains on 15 L about 2 by nasal cannula. I tried to cut her down to 13 L. He is doing well. She has no specific complaints. She is s itting up on a chair. She Solu-Medrol. She is also taking Diflucan. No nausea. No vomiting. No abdominal pain. No chest pain. Sugars are being monitored. The d-dimer is down to 2.81. Had CRP is less than 5 and the LDH is down to 932. I think the patient is slowly improving. She still requiring high flow oxygen. We'll continue our office to wean down FiO2 as tolerated to maintain a saturation above 90%. The chest x-ray findings from today showed bilateral pleural parenchymal changes and pulmonary infiltrates consistent with Covid 19 related pneumonia. The patient is also on a combination of Lovenox, colchicine and multivitamins related to Covid 19 related infection. On 07/28/2020, the patient is still on 13 L of oxygen by nasal cannula. She is still recovering from Covid 19 related pneumonia. No new complaints. She remains on IV Solu-Medrol in addition to colchicine and she is also on Lovenox and multivitamins. The patient's blood work from today shows no follow-up on the inflammatory markers. Nevertheless, her LDH and the CRP were essentially down trending. Also, no chest x-rays today. She is currently on 13 L and her pulse ox is around 94-95% I think she is able to wean down further her FiO2. Objective - Vital Signs Vital signs: Vital Signs Temp 97.8 F 07/28/20 10:00 Pulse 78 07/28/20 10:00 Resp 16 07/28/20 10:00 BP 113/53 07/28/20 10:00 Pulse Ox 96 07/28/20 10:00 Intake & Output 07/27/20 07/28/20 07/28/20 18:59 06:59 18:59 Intake Total 600 Output Total 1400 2400 1200 Balance -1400 -1800 -1200 Weight 129.5 kg Intake: Oral 600 Output: Urine 1400 2400 1200 Other: Voiding Method Bedside Commode Bedside Commode # Voids 1 # Bowel Movements 1 1 - Exam GENERAL EXAM: Alert, very pleasant, obese 74-year-old female patient 13 L of oxygen HEAD: Normocephalic/atraumatic. EYES: Normal reaction of pupils, equal size. Conjunctiva pink, sclera white. NOSE: Clear with pink turbinates. THROAT: No erythema or exudates. NECK: No masses, no JVD, no thyroid enlargement, no adenopathy. CHEST: No chest wall deformity. Symmetrical expansion. LUNGS: Equal air entry with bilateral scattered rhonchi CVS: Regular rate and rhythm, normal S1 and S2, no gallops, no murmurs, no rubs ABDOMEN: Soft, nontender. No hepatosplenomegaly, normal bowel sounds, no guarding or rigidity. EXTREMITIES: No clubbing,has edema, no cyanosis, 2+ pulses and upper and lower extremities. MUSCULOSKELETAL: Muscle strength and tone normal. SPINE: No scoliosis or deformity SKIN: No rashes CENTRAL NERVOUS SYSTEM: Alert and oriented -3. No focal deficits, tone is normal in all 4 extremities. PSYCHIATRIC: Alert and oriented -3. Appropriate affect. Intact judgment and insight. - Labs CBC & Chem 7: 07/26/20 09:50 07/26/20 09:50 Labs: Abnormal Lab Results - Last 24 Hours (Table) 07/27/20 07/27/20 07/28/20 Range/Units 16:26 21:05 07:00 POC Glucose (mg/dL) 163 H 227 H 133 H (75-99) mg/dL 07/28/20 Range/Units 11:55 POC Glucose (mg/dL) 295 H (75-99) mg/dL Assessment and Plan Plan: 1. Acute hypoxemic respiratory failure secondary to COVID 19 pneumonia. Currently on 13 L high flow nasal cannula , inflammatory markers are improving, still on IV Solu-Medrol, still on a 0.5 mg subcu Lovenox every 12 hours in addition to colchicine and she is also on vitamin supplements. Doing well. 2 History of diabetes mellitus. 3 History of atrial fibrillation, the patient currently is in a sinus rhythm 4 History of congestive heart failure. 5 History of osteoarthritis. 6 History of chronic back pain. 7 Status post lap band surgery for obesity. 8 History of deafness. Plan: the FiO2 13 L and she is currently off the 100% nonrebreather facemask and the patient's inflammatory markers are improving. Chest x-ray findings are stable Continue current treatment Reteat serum inflammatory markers including LDH, CRP, and d-dimer in a.m. the chest x-ray and a d-dimer. Continue the combination of IV Solu-Medrol, colchicine, Lovenox and the patient has already received a total of 2 units of convalescent plasma Continue Lovenox 70 mg subcu every 12 hours Review the IV Bumex 2 once a day Blood sugar management with Lantus and sliding-scale coverage insulin We will follow
[2020-07-28 17:51] LABS: Glucose,Whole Blood 189 mg/dL (75-99)
--- NOTE | 2020-07-28 17:51 | P.PN ---
Subjective Progress Note Date: 07/28/20 74-year-old morbidly obese female one of my office patient with past medical history of A. fib with RVR, history of acute gastrointestinal bleed with anemia, history of type 2 diabetes, history of obstructive sleep apnea, mild reactive airway/COPD and mild diastolic congestive heart failure who has been seen in the office the last week for acute Covid, patient was diagnosed on the ended up going for monoclonal anti-body infusion on the . Patient called office with worsening symptoms was seen in virtual visit and was recommended to go to the hospital to be admitted. Patient has been having worsening dyspnea and shortness of breath along with severe hypoxia worsening persistent cough pro ductive of phlegm along with mild twinges of blood. Patient was seen at the emergency department her pulse ox was in the 80 percentile with a few breathing treatment along with 3 L of O2 her pulse ox was increased to the low 90. Patient chest x-ray showed severe interstitial pneumonitis. Her d-dimer was elevated and ended up going for CTA showed extensive ground glass pulmonary interstitial edema could be related to RDS no pleural effusion found at the time. Patient was started on steroids along with updraft treatment O2 will consult pulmonary admit patient to the hospital. 2/2: The patient states that she is feeling much better today. She states that she did not sleep well last night. She is found sitting up in recliner and appears to be comfortable and in no acute distress. She has been afebrile, heart rate 72, blood pressure 160/83, pulse ox 92-98% on 5 L nasal cannula. Consult in place from pulmonary medicine. Blood sugars are running in the 200s. WBC 8, hemoglobin 10.1. Repeat lactic acid 1.7. IV fluids will be discontinued. Patient is on her home dose of Bumex. 2/3: Patient has been afebrile, heart rate 79, blood pressure 162/69, pulse ox 93% on 10 L nasal cannula. Patient complains of shortness of breath and feeling cold. She continues to cough. WBC is 18.5, hemoglobin 10.4, electrolytes normal. Creatinine 0.9. Total bilirubin 0.9, AST 88, ALT 44, alkaline phosphatase 143, LDH 943, C reactive protein 6.6. Overall, inflammatory markers are improving. Patient has been seen by pulmonary medicine and is outside of the window for Remdesivir treatment. Colchicine was added 07/19:tates that she was unable to sleep all night. She was on a nonrebreather and she felt she had a panic attack. She states that she is normally claustrophobic. She is currently seen on 15 L with pulse ox of 91%. She appears to be comfortable at rest. She is complaining of dark brown sputum production. She is also having mild nosebleed with dried blood only. Blood sugars are running between 257-300. D-dimer 8.72. LDH and CRP are pending. Patient has been afebrile, heart rate 82, blood pressure 144/51. She will probably not be ready for discharge until Thursday. 07/20: Patient has developed increasing shortness of breath overnight. She is now requiring high flow nasal cannula and nonrebreather with pulse ox of 91-95%. She has been afebrile, heart rate 77, blood pressure 178/79. Blood sugars are running between 132 and 261. Convalescent plasma has been ordered by pulmonary medicine today. Steroids have been changed to Solu-Medrol 60 mg IV every 6 ho urs. Lovenox increased to 70 mg subcu twice daily. Antibiotics in the form of Augmentin. 07/21: Patient states that she is feeling better compared to yesterday. She continues to be on 15 L high flow not nasal cannula and nonrebreather. We'll continue to attempt to wean. Receiving Bumex 2 mg IV. Continues to have lower extremity swelling bilaterally. Patient received 2 units of convalescent p lasma. She was complaining of dryness to bilateral nares. Flonase added. Patient remains afebrile, pulse rate 56, blood pressure 167/73, pulse ox 94% on nonrebreather and high flow oxygen. Discussed with patient's CODE STATUS. Patient states that she does not want to be intubated or have CPR performed. We will change her CODE STATUS to no code. 07/22: Patient is found sitting up in chair continue to utilize 15 L of high flow oxygen be significantly cannula nonrebreather pulse oxing 98%. Patient states that she is feeling better able to breathe easier. She has been having diarrhea for the past few days 3-4 episodes yesterday and only one today. Patient denies any abdominal discomfort or blood in stool. She is currently on Augmentin. We will do stool cultures including C. diff. 07/23: Patient remains on high flow nasal cannula 15 L with nonrebreather at her bedside. She is pulse oxing 91 and 94%. She's been afebrile, heart rate in the 70s, blood pressure 123/74. Blood sugars have been between 193 and 339. Anticipate need for oxygen at home. 07/24: Patient is on oxygen at 15 L high flow nasal cannula with pulse ox of 95%. She has been afebrile, heart rate 74, blood pressure 135/75. WBC 9.8, hemoglobin 10.3, platelet count 95. Sodium 136, potassium 3. former be replace d. BUN 35 and creatinine 1. Blood sugars running in the 200s. AST 37, ALT 48. Anticipate that the patient will require home oxygen at the time of discharge. 07/25: Pulse ox is 93% on 15 L high flow nasal cannula and partial rebreather. She's been afebrile, heart rate 89, blood pressure 127/74. Blood sugars running between 128 and 262. Repeat chest x-ray reveals stable findings. Correlate for pneumonia. Patient has been maintained on Augmentin, colchicine, Lovenox, IV Solu-Medrol and supplements. We'll order one additional dose of Bumex this afternoon. 07/26: Patient continues to have cough with hemoptysis, she has shortness of breath with minimal activity. Pulse ox is 91-95% on 15 L high flow nasal cannula. We will add in Tessalon pearls. She continues to have thrush for whi ch she is on Diflucan. Bumex increased to 2 mg IV push twice daily. She has been afebrile, heart rate 77, blood pressure 143/68. Repeat blood work reveals WBC 9, hemoglobin 11.2, platelet count 87. Sodium 136, potassium 3.7, CO2 34, BUN 44 and creatinine 0.8. Blood sugars are running 186-237. AST at 73, ALT 73. Repeat LDH 732. C-reactive protein less than 5. Patient will continue treatment in the hospital until oxygenation is improved and she is down to 5 or 6 L nasal cannula. 07/27: Patient is pulse oxing 91-95% on 15 L high flow nasal cannula. She has been afebrile, heart rate 80, blood pressure 139/81. Blood sugars are running between 163 and 246. Patient is continued on IV Solu-Medrol, supplements, Lovenox. 07/28: Patient has been diuresing very well, she has significant weight loss, per patient she has now lost 45 pounds for the past 2 weeks, shortness breath is also much better, pulse oximetry is now are between 90-96%, 11 L nasal cannula, vital signs stable, no fever no chills, no diarrhea, decreas Bumex now to 2 mg daily, she has dyspnea on exertion, minimal conversational dyspnea however this has improved. No lightheadedness no falls REVI EW OF SYSTEMS CONSTITUTIONAL: Well-developed with moderate respiratory distress. Denies fevers. Denies chills. EYES: No icterus sclerae, no conjunctivitis. EARS, NOSE, MOUTH, THROAT, and FACE: No sore throat, lymphadenopathy, carotid bruits or deformity. RESPIRATORY: Moderate dyspnea and shortness of breath and cough. Dyspnea with exertion. Dyspnea at rest. CARDIOVASCULAR: Positive PND orthopnea . Denies palpitation with no angina. GASTROINTESTINAL: No Abd pain, Nausea or vomiting, no Diarrhea or constipation, No GI Bleed, no distention or masses. GENITOURINARY: Negative for Hematuria or UTI, no kidney stones. INTEGUMENT/BREAST: Negative for any muscular injury with mild osteoarthritis. Chronic edema. HEMATOLOGIC/LYMPHATIC: Negative for bleed or purpura. MUSCULOSKELTAL: Negative for Myalgia or arthralgia. Significant arthralgia and myalgia. NEURLOGICAL: No LOC, Sz or syncope, blurred vision dizziness or abnormality.. BEHAVIORAL/PSYCH: Negative. ENDOCRLavina blood sugars Objective - Vital Signs Vital signs: Vital Signs Temp 97.8 F 07/28/20 10:00 Pulse 78 07/28/20 10:00 Resp 16 07/28/20 10:00 BP 113/53 07/28/20 10:00 Pulse Ox 96 07/28/20 10:00 Intake & Output 07/27/20 07/28/20 07/28/20 18:59 06:59 18:59 Intake Total 600 Output Total 1400 2400 1200 Balance -1400 -1800 -1200 Weight 129.5 kg Intake: Oral 600 Output: Urine 1400 2400 1200 Other: Voiding Method Bedside Commode Bedside Commode # Voids 1 # Bowel Movements 1 1 - Constitutional General appearance: Present: cooperative, no acute distress - EENT Eyes: Present: EOMI, PERRLA, dentition normal, normal appearance ENT: Present: NA/AT, normal oropharynx - Neck Neck: Present: normal ROM - Respiratory Respiratory: bilateral: CTA, negative: diminished, dullness, rales, rhonchi - Cardiovascular Rhythm: regular Heart sounds: normal: S1, S2 Abnormal Heart Sounds: Absent: systolic murmur, diastolic murmur, rub, S3 Gallop, S4 Gallop, click, other - Peripheral edema leg Peripheral Edema: bilateral: 1+ - Gastrointestinal General gastrointestinal: Present: normal bowel sounds, soft - Integumentary Integumentary: Present: normal - Musculoskeletal Musculoskeletal: Present: gait normal, generalized weakness, strength equal bilaterally - Psychiatric Psychiatric: Present: A&O x's 3 - Labs CBC & Chem 7: 07/26/20 09:50 07/26/20 09:50 Labs: Abnormal Lab Results - Last 24 Hours (Table) 07/27/20 07/27/20 07/28/20 Range/Units 16:26 21:05 07:00 POC Glucose (mg/dL) 163 H 227 H 133 H (75-99) mg/dL 07/28/20 Range/Units 11:55 POC Glucose (mg/dL) 295 H (75-99) mg/dL Assessment and Plan Plan: 1 acute hypoxic respiratory failure secondary to acute Covid pneumonitis with worsening symptoms clinically improving Covid markers, improved hypoxemia with diuresing. Consult with pulmonary medicine. Continue Solu-Medrol 60 mg IV every 6 hours, convalescent plasma, Augmentin, vitamin C, vitamin D, colchicine, oxygen support, lovenox increased to 70 mg twice daily. Bumex increased to 2 mg IV push twice daily. Tessalon Perles added. Telemetry will be discontinued. 2 acute Covid pneumonitis with worsening symptoms. Continue as in #1. 3 COPD continue albuterol inhaler. 4. Paroxysmal atrial fibrillation, unable to tolerate anticoagulation secondary to acute GI bleed, continue metoprolol 12.5 mg twice daily and flecainide 50 mg twice a day. 5 type 2 diabetes, uncontrolled with hyperglycemia secondary to steroids. Continue Accu-Chek with sliding scales coverage continue Lantus at 45 units daily and still on Januvia. And scheduled NovoLog 3u increased to 6 units with meals. 6 chronic diastolic heart failure. Continue Bumex 1 mg twice brandon IV y, Lopressor. 7 peptic ulcer disease and GI prophylaxis: Continue patient on pantoprazole 40 mg daily. 8 chronic anemia: Remain on iron supplement and multivitamins no need for transfusion. 9 mild hyponatremia: Most likely SIADH from pneumonia will continue mild gentle hydration repeat chemistry in the next 24 hours. 10 DVT prophylaxis: Patient will be on Lovenox subcutaneous daily. 11 GI prophylaxis: Will be on pantoprazole. 12. Diarrhea. Stool cultures. C. diff negative. Diarrhea most likely secondary to Augmentin. CODE STATUS: No Code DISCHARGE PLAN Most likely home next week. Patient may require home oxygen.
[2020-07-28 20:47] LABS: Glucose,Whole Blood 180 mg/dL (75-99)
[2020-07-28] MEDS: LINAGLIPTIN 5 MG TABLET PO SCH (21:02)
[2020-07-29] MEDS: ACETAMINOPHEN TAB 325 MG TAB PO PRN ×2 (03:43→16:06)
[2020-07-29] MEDS: methylPREDNISolone SOD SUCCI 125 MG/2 ML VIAL IV SCH ×4 (05:03→23:14)
--- NOTE | 2020-07-29 07:15 | XR ---
EXAMINATION TYPE: XR chest 1V DATE OF EXAM: 07/29/2020 COMPARISON: 07/27/2020 HISTORY: Cough, cold. TECHNIQUE: Single frontal view of the chest is obtained. FINDINGS: Coarsened interstitium. Cardiomegaly. Limited inspiration. No pneumothorax. Arthropathy sh oulders. IMPRESSION: Persistent interstitial infiltrate stable
[2020-07-29] MEDS: ALBUTEROL HFA INHALER INHALATION PRN ×2 (07:28→20:50)
[2020-07-29] MEDS: METOPROLOL TARTRATE 12.5 MG TAB PO SCH (07:43)
[2020-07-29] MEDS: POTASSIUM CHLORIDE ER 20 MEQ TAB.ER PO SCH (07:44)
[2020-07-29] MEDS: CHOLECALCIFEROL 25 MCG (1000 IU) TABLET PO SCH (07:44)
[2020-07-29] MEDS: ZINC SULFATE 220 MG CAP PO SCH (07:44)
[2020-07-29] MEDS: ASCORBIC ACID 500 MG TAB PO SCH (07:44)
[2020-07-29] MEDS: FLUCONAZOLE 100 MG TAB PO SCH (07:45)
[2020-07-29] MEDS: PANTOPRAZOLE 40 MG TABLET PO SCH ×2 (07:45→20:09)
[2020-07-29] MEDS: BENZONATATE 100 MG CAP PO SCH ×3 (07:45→20:09)
[2020-07-29] MEDS: ENOXAPARIN 80 MG/0.8 ML SYRINGE SQ SCH (07:48)
[2020-07-29] MEDS: COLCHICINE 0.6 MG EACH PO SCH (07:48)
[2020-07-29] MEDS: FLECAINIDE 50 MG TAB PO SCH ×2 (07:49→20:09)
[2020-07-29] MEDS: NON FORMULARY DRUG (Potassium Gluconate [Potassium Gluconate] 99 MG Tablet.Er) PO SCH (07:50)
[2020-07-29] MEDS: FLUTICASONE 50MCG/SPRAY NASAL 16GM EA NOSTRIL SCH (07:50)
[2020-07-29 07:51] LABS: Glucose,Whole Blood 194 mg/dL (75-99)
[2020-07-29] MEDS: INSULIN DETEMIR (LEVEMIR) 100 UNIT/ML SYR SQ SCH (07:51)
[2020-07-29] MEDS: INSULIN ASPART (NovoLOG) 100 UNIT/ML VIAL SQ SCH ×7 (07:52→20:09)
[2020-07-29] MEDS ORDERED: BUMETANIDE 0.25 MG/ML 4 ML VIAL IVP SCH (09:00)
[2020-07-29] MEDS: CHOLESTYRAMINE (WITH SUGAR) 4 GM PACKET PO SCH ×2 (09:47→17:48)
--- NOTE | 2020-07-29 10:53 | P.PN ---
Subjective Progress Note Date: 07/29/20 Principal diagnosis: CoVID 19 pneumonia 74-year-old female who was seen in the emergency department on 07/16/2020, at 1535. The patient presented with complaints of shortness of breath. The patient has a history of atrial fibrillation, obesity, congestive heart failure, and diabetes. She apparently was diagnosed with COVID 19 infection on July 09. Prior to being tested positive, the patient had 2 weeks of what she describes as a head cold. She started taking vitamins, and Decadron. More recently, she's been getting progressively worse as it relates to her shortness of breath, which now occurs on any activity. She does have some nausea, but denies any vomiting or diarrhea. She denies any chest pain. She denies any genitourinary complaints and lower extremity edema. Apparently her family doctor recommended that she come into the emergency room to be evaluated. A chest x-ray reveals some mild pulmonary interstitial pneumonia, and the CT angiogram revealed no evidence of any central or large pulmonary emboli, but did show extensive groundglass pulmonary interstitial infiltrates, consistent with her diagnosis of COVID19 pneumonia. Unfortunately, she is beyond the window for remdesivir. Currently, she is on 5 L nasal cannula, and her saturations are 99%. Her respiratory rate is 20, and her temperature is 97.6F. Blood pressure is good and heart rate is 71 bpm. Her current white count is 8.09, hemoglobin 10.1, hematocrit 34.7, and platelet count 137,000. Sodium is 135, potassium 4.9, chlorides 102, CO2 25, anion gap 8, BUN 17, and creatinine 0.8. D-dimer is 1.21, ferritin is 624, LDH is 1468, and C-reactive protein is 139. N-terminal proBNP was 1970. Pro-calcitonin level was 0.20. On 07/18/2020 patient seen in follow-up on medical floor, she is currently on 11 L of oxygen, she is awake and alert, she said nobody into the bed, apparently earlier she felt a little dizzy, she feels fatigued, be in no acute distress. Today's labs have been reviewed, showing white blood cell count of 18.5, hemoglobin is 10.4, his inflammatory markers are trending down, LDH is down to 943, CRP is down to 6.6, pro calcitonin level was 0.20. Continues on prophylactic dose of Lovenox, IV Decadron 6 mg daily, colchicine, and zinc On 07/19/2020 patient seen in follow-up on medical floor. She is currently up to 2 L of oxygen, her pulse ox is 91-94%, she states she feels better but she is requiring more oxygen, she states she is coughing up some phlegm. Today's chest x-ray has been reviewed showing central vascularity and interstitial increased, bilateral groundglass opacity within the lungs. And there is persistent elevation of the right hemidiaphragm. Patient seems to have increased edema in her lower extremities, she is currently on a daily dose of oral Bumex 1 mg daily, her lung sounds positive for scattered rhonchi. We will add empiric antibiotics, will afternoon dose of oral Bumex and obtain follow-up chest x-ray tomorrow. Physically she states she is feeling better, she is able to clear some phlegm. On 07/20/2020 patient seen in follow-up on medical floor, her oxygen requirements are continuously increasing, currently up to 15 L of oxygen per high flow nasal cannula and partial nonrebreather and her pulse ox is between 91-95%, afebrile. She is more dyspneic today, her lower extremities remain swollen, we did give the patient a dose of diuretics yesterday, however her neck fluid balance is very difficult to estimate. Her inflammatory markers have been reviewed, and pH is down to 780, and CRP is at 9.4, pro calcitonin level has decreased and is down to 0.12, however d-dimer has trended down and is up to 8.72, and we will adjust the dose of Lovenox to 0.5 mg/kg of body weight twice daily. Based Effexor has been reviewed showing worsening airspace disease, pneumonia and pulmonary edema. The patient is seen today 07/21/2020 in follow-up on the regular medical floor. She is currently sitting up in a chair at the bedside. Awake and alert in no acute distress. She is still requiring 15 L high flow nasal cannula along with 15 L partial rebreather mask. O2 saturations in the low 90s. She is afebrile. She has received 1 unit of convalescent plasma. White count 16.2. Hemoglobin 10.2. Lymphocytes 0.3. Sodium 138. Potassium 3.8. Creatinine 0.8. She is on antibiotics in the form of Augmentin. Continue on vitamin supplements. Remains on colchicine, IV Solu-Medrol, Lovenox. The patient is seen today 07/22/2020 in follow-up on the regular medical floor. She is awake and alert in no acute distress. Sitting up in a chair at the bedside. She is still requiring 15 L high flow nasal cannula along with a partial nonrebreather mask to maintain O2 saturations in the low 90s. Chest x-r ay continues to show bilateral airspace infiltrates however there is some interval improvement. She did receive 1 unit of convalescent plasma. D-dimer 7.56. LDH 531. C-reactive protein 3.3. She remains on colchicine, IV Solu- Medrol, Lovenox, vitamin supplements, Augmentin. The patient is seen today 07/29/2020 in follow-up on the regular medical floor. She is currently sitting up in a chair at the bedside. Awake and alert in no acute distress. She is down to 10 L high flow nasal cannula O2 saturation 97%. She's afebrile. Hemodynamically stable. Chest x-ray shows persistent intersti tial infiltrates. Stable compared to previous. She has received 2 units of convalescent plasma. Blood cultures revealed no growth. Sputum culture positive for Vianey. Blood glucose 194. She remains on bronchodilators, IV Solu-Medrol, Lovenox, Colcrys, Protonix, vitamin supplements. IV Bumex. Objective - Vital Signs Vital signs: Vital Signs Temp 97.4 F L 07/29/20 06:00 Pulse 68 07/29/20 06:00 Resp 21 07/29/20 07:45 BP 115/67 07/29/20 06:00 Pulse Ox 97 07/29/20 06:00 Intake & Output 07/28/20 07/29/20 07/29/20 18:59 06:59 18:59 Output Total 1600 900 400 Balance -1600 -900 -400 Weight 128.8 kg Output: Urine 1600 900 400 Other: Voiding Method Bedside Commode Bedside Commode Bedside Commode # Bowel Movements 1 1 - Exam GENERAL EXAM: Alert, very pleasant, obese 75-year-old female patient 10 L of high flow oxygen, in no acute distress HEAD: Normocephalic/atraumatic. EYES: Normal reaction of pupils, equal size. Conjunctiva pink, sclera white. NOSE: Clear with pink turbinates. THROAT: No erythema or exudates. NECK: No masses, no JVD, no thyroid enlargement, no adenopathy. CHEST: No chest wall deformity. Symmetrical expansion. LUNGS: Equal air entry with bilateral scattered rhonchi CVS: Regular rate and rhythm, normal S1 and S2, no gallops, no murmurs, no rubs ABDOMEN: Soft, nontender. No hepatosplenomegaly, normal bowel sounds, no guarding or rigidity. EXTREMITIES: No clubbing, no edema, no cyanosis, 2+ pulses and upper and lower extremities. MUSCULOSKELETAL: Muscle strength and tone normal. SPINE: No scoliosis or deformity SKIN: No rashes CENTRAL NERVOUS SYSTEM: No focal deficits, tone is normal in all 4 extremities. PSYCHIATRIC: Alert and oriented -3. Appropriate affect. Intact judgment and insight. - Labs CBC & Chem 7: 07/26/20 09:50 07/26/20 09:50 Labs: Abnormal Lab Results - Last 24 Hours (Table) 07/28/20 07/28/20 07/28/20 Range/Units 11:55 17:38 20:47 POC Glucose (mg/dL) 295 H 189 H 180 H (75-99) mg/dL 07/29/20 Range/Units 07:22 POC Glucose (mg/dL) 194 H (75-99) mg/dL Assessment and Plan Assessment: 1. Acute hypoxemic respiratory failure secondary to COVID 19 pneumonia. Currently on 10 L high flow nasal cannula 2 History of diabetes mellitus. 3 History of atrial fibrillation. 4 History of congestive heart failure. 5 History of osteoarthritis. 6 History of chronic back pain. 7 Status post lap band surgery for obesity. 8 History of deafness. Plan: The patient was seen and evaluated by Dr. Zuniga Chest x-ray stable Titrate down the FiO2 as tolerated Decrease Lovenox to 40 mg daily Decrease colchicine to 0.6 mg daily Continues with high oxygen requirements She is a DO NOT RESUSCITATE/DO NOT INTUBATE CODE STATUS We will continue to follow I, the cosigning physician, performed a history & physical examination of the patient. Lungs sounds bilateral scattered rhonchi. Maintaining good O2 saturations in the 90s on 10 L high flow nasal cannula. I discussed the assessment and plan of care with my nurse practitioner, Luisa Lubin. I attest to the above note as dictated by her.
[2020-07-29 11:51] LABS: Glucose,Whole Blood 175 mg/dL (75-99)
[2020-07-29 11:52] LABS: ALT 126 U/L (8-44); AST 69 U/L (13-35); African American GFR (CKD) 51.9 (60.0-200.0); Albumin/Globulin Ratio 0.97 (1.60-3.17); Alkaline Phosphatase 136 U/L (41-126); BUN/Creat Ratio 36.67 Ratio (12.00-20.00); C Reactive Protein <0.4 mg/dL (0.0-0.8); Calcium 8.2 mg/dL (8.7-10.3); Carbon Dioxide 36.8 mmol/L (21.6-31.8); Chloride 93 mmol/L (96-109); Globulin 3.1 g/dL (1.6-3.3); Glucose 201 mg/dL (70-110); LDH 340 U/L (120-246); Non-African American GFR(CKD) 44.8 (60.0-200.0); Potassium 3.4 mmol/L (3.5-5.5); Sodium 136 mmol/L (135-145); Total Bilirubin 1.2 mg/dL (0.3-1.2); Total Protein 6.1 g/dL (6.2-8.2)
[2020-07-29 13:06] LABS: Basophils # (A) 0.02 X 10*3/uL (0.00-0.10); Basophils % (A) 0.2 %; Eosinophils # (A) 0 X 10*3/uL (0.04-0.35); Eosinophils % (A) 0 %; HCT 37.8 % (37.2-46.3); HGB 11.1 g/dL (12.0-15.0); Lymphocytes # (A) 0.21 X 10*3/uL (0.90-5.00); Lymphocytes % (A) 1.8 %; MCH 22.2 pg (27.0-32.0); MCHC 29.4 g/dL (32.0-37.0); MCV 75.6 fL (80.0-97.0); Mean Platelet Volume 10.9 fL (9.5-12.2); Monocytes # (A) 0.47 X 10*3/uL (0.20-1.00); Monocytes % (A) 3.9 %; Neutrophils # (A) 11.18 X 10*3/uL (1.80-7.70); Neutrophils % (A) 93.3 %; Platelet Count 170 X 10*3/uL (140-440); RDW 18.8 % (11.5-14.5); WBC 11.98 X 10*3/uL (4.50-10.00)
[2020-07-29] MEDS ORDERED: POTASSIUM CHLORIDE ER 20 MEQ TAB.ER PO STA (15:18)
--- NOTE | 2020-07-29 15:19 | P.PN ---
Subjective Progress Note Date: 07/29/20 74-year-old morbidly obese female one of Dr Betancur patient with past medical history of A. fib with RVR, history of acute gastrointestinal bleed with anemia, history of type 2 diabetes, history of obstructive sleep apnea, mild reactive airway/COPD and mild diastolic congestive heart failure who has been seen in the office the last week for acute Covid, patient was diagnosed on the ended up going for monoclonal anti-body infusion on the . Patient called office with worsening symptoms was seen in virtual visit and was recommended to go to the hospital to be admitted. Patient has been having worsening dyspnea and shortness of breath along with severe hypoxia worsening persistent cough prod uctive of phlegm along with mild twinges of blood. Patient was seen at the emergency department her pulse ox was in the 80 percentile with a few breathing treatment along with 3 L of O2 her pulse ox was increased to the low 90. Patient chest x-ray showed severe interstitial pneumonitis. Her d-dimer was elevated and ended up going for CTA showed extensive ground glass pulmonary interstitial edema could be related to RDS no pleural effusion found at the time. Patient was started on steroids along with updraft treatment O2 will consult pulmonary admit patient to the hospital. 2/2: The patient states that she is feeling much better today. She states that she did not sleep well last night. She is found sitting up in recliner and appears to be comfortable and in no acute distress. She has been afebrile, heart rate 72, blood pressure 160/83, pulse ox 92-98% on 5 L nasal cannula. Consult in place from pulmonary medicine. Blood sugars are running in the 200s. WBC 8, hemoglobin 10.1. Repeat lactic acid 1.7. IV fluids will be discontinued. Patient is on her home dose of Bumex. 2/3: Patient has been afebrile, heart rate 79, blood pressure 162/69, pulse ox 93% on 10 L nasal cannula. Patient complains of shortness of breath and feeling cold. She continues to cough. WBC is 18.5, hemoglobin 10.4, electrolytes normal. Creatinine 0.9. Total bilirubin 0.9, AST 88, ALT 44, alkaline phosphatase 143, LDH 943, C reactive protein 6.6. Overall, inflammatory markers are improving. Patient has been seen by pulmonary medicine and is outside of the window for Remdesivir treatment. Colchicine was added 07/19:tates that she was unable to sleep all night. She was on a nonrebreather and she felt she had a panic attack. She states that she is normally claustrophobic. She is currently seen on 15 L with pulse ox of 91%. She appears to be comfortable at rest. She is complaining of dark brown sputum production. She is also having mild nosebleed with dried blood only. Blood sugars are running between 257-300. D-dimer 8.72. LDH and CRP are pending. Patient has been afebrile, heart rate 82, blood pressure 144/51. She will probably not be ready for discharge until Thursday. 07/20: Patient has developed increasing shortness of breath overnight. She is now requiring high flow nasal cannula and nonrebreather with pulse ox of 91-95%. She has been afebrile, heart rate 77, blood pressure 178/79. Blood sugars are running between 132 and 261. Convalescent plasma has been ordered by pulmonary medicine today. Steroids have been changed to Solu-Medrol 60 mg IV every 6 melly rs. Lovenox increased to 70 mg subcu twice daily. Antibiotics in the form of Augmentin. 07/21: Patient states that she is feeling better compared to yesterday. She continues to be on 15 L high flow not nasal cannula and nonrebreather. We'll continue to attempt to wean. Receiving Bumex 2 mg IV. Continues to have lower extremity swelling bilaterally. Patient received [address] asma. She was complaining of dryness to bilateral nares. Flonase added. Patient remains afebrile, pulse rate 56, blood pressure 167/73, pulse ox 94% on nonrebreather and high flow oxygen. Discussed with patient's CODE STATUS. Patient states that she does not want to be intubated or have CPR performed. We will change her CODE STATUS to no code. 07/22: Patient is found sitting up in chair continue to utilize 15 L of high flow oxygen be significantly cannula nonrebreather pulse oxing 98%. Patient states that she is feeling better able to breathe easier. She has been having diarrhea for the past few days 3-4 episodes yesterday and only one today. Patient denies any abdominal discomfort or blood in stool. She is currently on Augmentin. We will do stool cultures including C. diff. 07/23: Patient remains on high flow nasal cannula 15 L with nonrebreather at her bedside. She is pulse oxing 91 and 94%. She's been afebrile, heart rate in the 70s, blood pressure 123/74. Blood sugars have been between 193 and 339. Anticipate need for oxygen at home. 07/24: Patient is on oxygen at 15 L high flow nasal cannula with pulse ox of 95%. She has been afebrile, heart rate 74, blood pressure 135/75. WBC 9.8, hemoglobin 10.3, platelet count 95. Sodium 136, potassium 3. former be replaced . BUN 35 and creatinine 1. Blood sugars running in the 200s. AST 37, ALT 48. Anticipate that the patient will require home oxygen at the time of discharge. 07/25: Pulse ox is 93% on 15 L high flow nasal cannula and partial rebreather. She's been afebrile, heart rate 89, blood pressure 127/74. Blood sugars running between 128 and 262. Repeat chest x-ray reveals stable findings. Correlate for pneumonia. Patient has been maintained on Augmentin, colchicine, Lovenox, IV Solu-Medrol and supplements. We'll order one additional dose of Bumex this afternoon. 07/26: Patient continues to have cough with hemoptysis, she has shortness of breath with minimal activity. Pulse ox is 91-95% on 15 L high flow nasal cannula. We will add in Tessalon pearls. She continues to have thrush for whic h she is on Diflucan. Bumex increased to 2 mg IV push twice daily. She has been afebrile, heart rate 77, blood pressure 143/68. Repeat blood work reveals WBC 9, hemoglobin 11.2, platelet count 87. Sodium 136, potassium 3.7, CO2 34, BUN 44 and creatinine 0.8. Blood sugars are running 186-237. AST at 73, ALT 73. Repeat LDH 732. C-reactive protein less than 5. Patient will continue treatment in the hospital until oxygenation is improved and she is down to 5 or 6 L nasal cannula. 07/27: Patient is pulse oxing 91-95% on 15 L high flow nasal cannula. She has been afebrile, heart rate 80, blood pressure 139/81. Blood sugars are running between 163 and 246. Patient is continued on IV Solu-Medrol, supplements, Lovenox. 07/28: Patient has been diuresing very well, she has significant weight loss, per patient she has now lost 45 pounds for the past 2 weeks, shortness breath is also much better, pulse oximetry is now are between 90-96%, 11 L nasal cannula, vital signs stable, no fever no chills, no diarrhea, decreas Bumex now to 2 mg daily, she has dyspnea on exertion, minimal conversational dyspnea however this has improved. No lightheadedness no falls 07/29 patient feels not somewhat worse, she seems to slightly be better, has lost 2 more pounds, still diuresing at nighttime, complains of being tired or sleepy during the day, not sleeping well at night. Appetite is much better, no nausea no respiratory events, still 8 L nasal cannula 91%, still has anasarca mainly in the legs, resolved edema in the upper extremities , start melatonin for sleep hygiene zoroastrian, on Zaroxolyn Thursday 2.5, still on Solu-Medrol 60 mg every 6 hours, Bumex at 2 mg IV daily. Potassium at 3.4, being replaced REVI EW OF SYSTEMS CONSTITUTIONAL: Well-developed with moderate respiratory distress. Denies fevers. Denies chills. EYES: No icterus sclerae, no conjunctivitis. EARS, NOSE, MOUTH, THROAT, and FACE: No sore throat, lymphadenopathy, carotid bruits or deformity. RESPIRATORY: Moderate dyspnea and shortness of breath and cough. Dyspnea with exertion. Dyspnea at rest. CARDIOVASCULAR: Positive PND orthopnea . Denies palpitation with no angina. GASTROINTESTINAL: No Abd pain, Nausea or vomiting, no Diarrhea or constipation, No GI Bleed, no distention or masses. GENITOURINARY: Negative for Hematuria or UTI, no kidney stones. INTEGUMENT/BREAST: Negative for any muscular injury with mild osteoarthritis. Chronic edema. HEMATOLOGIC/LYMPHATIC: Negative for bleed or purpura. MUSCULOSKELTAL: Negative for Myalgia or arthralgia. Significant arthralgia and myalgia. NEURLOGICAL: No LOC, Sz or syncope, blurred vision dizziness or abnormality.. BEHAVIORAL/PSYCH: Negative. ENDOCRLavina blood sugars Objective - Vital Signs Vital signs: Vital Signs Temp 97.2 F L 07/29/20 10:00 Pulse 73 07/29/20 10:00 Resp 20 07/29/20 10:00 BP 114/66 07/29/20 10:00 Pulse Ox 91 L 07/29/20 10:00 Intake & Output 07/28/20 07/29/20 07/29/20 18:59 06:59 18:59 Intake Total 200 Output Total 1600 900 400 Balance -1600 -900 -200 Weight 128.8 kg Intake: Oral 200 Output: Urine 1600 900 400 Other: Voiding Method Bedside Commode Bedside Commode Bedside Commode # Bowel Movements 1 1 - Constitutional General appearance: Present: cooperative, no acute distress - EENT Eyes: Present: EOMI, PERRLA, dentition normal, normal appearance - Neck Neck: Present: normal ROM - Respiratory Respiratory: bilateral: CTA, negative: diminished, dullness, rales - Cardiovascular Rhythm: regular Heart sounds: normal: S1, S2 Abnormal Heart Sounds: Absent: systolic murmur, diastolic murmur, rub, S3 Gallop, S4 Gallop, click, other - Gastrointestinal General gastrointestinal: Present: normal bowel sounds, soft - Integumentary Integumentary: Present: normal - Neurologic Neurologic: Present: CNII-XII intact - Musculoskeletal Musculoskeletal: Present: generalized weakness - Psychiatric Psychiatric: Present: A&O x's 3, appropriate affect, intact judgment & insight - Labs CBC & Chem 7: 08/05/20 05:26 08/05/20 05:26 Labs: Abnormal Lab Results - Last 24 Hours (Table) 07/28/20 07/28/20 07/29/20 Range/Units 17:38 20:47 06:34 WBC (4.50-10.00) X 10*3/uL Hgb (12.0-15.0) g/dL MCV (80.0-97.0) fL MCH (27.0-32.0) pg MCHC (32.0-37.0) g/dL RDW (11.5-14.5) % Immature Gran # (0.00-0.04) X 10*3/uL Neutrophils # (1.80-7.70) X 10*3/uL Lymphocytes # (0.90-5.00) X 10*3/uL Eosinophils # (0.04-0.35) X 10*3/uL Potassium 3.4 L (3.5-5.5) mmol/L Chloride 93 L (96-109) mmol/L Carbon Dioxide 36.8 H (21.6-31.8) mmol/L BUN 44.0 H (9.0-27.0) mg/dL Est GFR (CKD-EPI)AfAm 51.9 L (60.0-200.0) Est GFR (CKD-EPI)NonAf 44.8 L (60.0-200.0) BUN/Creatinine Ratio 36.67 H (12.00-20.00) Ratio Glucose 201 H (70-110) mg/dL POC Glucose (mg/dL) 189 H 180 H (75-99) mg/dL Calcium 8.2 L (8.7-10.3) mg/dL AST 69 H (13-35) U/L ALT 126 H (8-44) U/L Alkaline Phosphatase 136 H (41-126) U/L Lactate Dehydrogenase 340 H (120-246) U/L Total Protein 6.1 L (6.2-8.2) g/dL Albumin 3.00 L (3.80-4.90) g/dL Albumin/Globulin Ratio 0.97 L (1.60-3.17) g/dL 07/29/20 07/29/20 07/29/20 Range/Units 06:34 07:22 11:41 WBC 11.98 H (4.50-10.00) X 10*3/uL Hgb 11.1 L (12.0-15.0) g/dL MCV 75.6 L (80.0-97.0) fL MCH 22.2 L (27.0-32.0) pg MCHC 29.4 L (32.0-37.0) g/dL RDW 18.8 H (11.5-14.5) % Immature Gran # 0.10 H (0.00-0.04) X 10*3/uL Neutrophils # 11.18 H (1.80-7.70) X 10*3/uL Lymphocytes # 0.21 L (0.90-5.00) X 10*3/uL Eosinophils # 0 L (0.04-0.35) X 10*3/uL Potassium (3.5-5.5) mmol/L Chloride (96-109) mmol/L Carbon Dioxide (21.6-31.8) mmol/L BUN (9.0-27.0) mg/dL Est GFR (CKD-EPI)AfAm (60.0-200.0) Est GFR (CKD-EPI)NonAf (60.0-200.0) BUN/Creatinine Ratio (12.00-20.00) Ratio Glucose (70-110) mg/dL POC Glucose (mg/dL) 194 H 175 H (75-99) mg/dL Calcium (8.7-10.3) mg/dL AST (13-35) U/L ALT (8-44) U/L Alkaline Phosphatase (41-126) U/L Lactate Dehydrogenase (120-246) U/L Total Protein (6.2-8.2) g/dL Albumin (3.80-4.90) g/dL Albumin/Globulin Ratio (1.60-3.17) g/dL Assessment and Plan Plan: 1 acute hypoxic respiratory failure secondary to acute Covid pneumonitis with worsening symptoms clinically improving Covid markers, improved hypoxemia with diuresing. Consult with pulmonary medicine. Continue Solu-Medrol 60 mg IV every 6 hours, convalescent plasma, Augmentin, vitamin C, vitamin D, colchicine, oxygen support, lovenox increased to 70 mg twice daily. Bumex increased to 2 mg IV push twice daily. Tessalon Perles added. Telemetry will be discontinued. 2 acute Covid pneumonitis with worsening symptoms. Continue as in #1. 3 COPD continue albuterol inhaler. 4. Paroxysmal atrial fibrillation, unable to tolerate anticoagulation secondary to acute GI bleed, continue metoprolol 12.5 mg twice daily and flecainide 50 mg twice a day. 5 type 2 diabetes, uncontrolled with hyperglycemia secondary to steroids. Con tinue Accu-Chek with sliding scales coverage continue Lantus at 45 units daily and still on Januvia. And scheduled NovoLog 3u increased to 6 units with meals. 6 chronic diastolic heart failure. Continue Bumex 1 mg twice brandon IV y, Lopressor. 7 peptic ulcer disease and GI prophylaxis: Continue patient on pantoprazole 40 mg daily. 8 chronic anemia: Remain on iron supplement and multivitamins no need for transfusion. 9 mild hyponatremia: Most likely SIADH from pneumonia will continue mild gentle hydration repeat chemistry in the next 24 hours. 10 DVT prophylaxis: Patient will be on Lovenox subcutaneous daily. 11 GI prophylaxis: Will be on pantoprazole. 12. Diarrhea. Stool cultures. C. diff negative. Diarrhea most likely secondary to Augmentin. CODE STATUS: No Code DISCHARGE PLAN Most likely home next week. Patient may require home oxygen.
[2020-07-29 17:39] LABS: Glucose,Whole Blood 211 mg/dL (75-99)
[2020-07-29 20:03] LABS: Glucose,Whole Blood 222 mg/dL (75-99)
[2020-07-29] MEDS: LINAGLIPTIN 5 MG TABLET PO SCH (20:09)
[2020-07-29] MEDS: MELATONIN 3 MG TABLET PO SCH (20:09)
[2020-07-30] MEDS: methylPREDNISolone SOD SUCCI 125 MG/2 ML VIAL IV SCH ×4 (05:21→23:23)
[2020-07-30 07:45] LABS: Glucose,Whole Blood 215 mg/dL (75-99)
[2020-07-30] MEDS: ALBUTEROL HFA INHALER INHALATION PRN ×3 (08:07→15:13)
[2020-07-30] MEDS: INSULIN ASPART (NovoLOG) 100 UNIT/ML VIAL SQ SCH ×7 (08:20→20:32)
[2020-07-30] MEDS: INSULIN DETEMIR (LEVEMIR) 100 UNIT/ML SYR SQ SCH (08:20)
[2020-07-30] MEDS: BENZONATATE 100 MG CAP PO SCH ×3 (08:21→20:31)
[2020-07-30] MEDS: POTASSIUM CHLORIDE ER 20 MEQ TAB.ER PO SCH (08:21)
[2020-07-30] MEDS: ZINC SULFATE 220 MG CAP PO SCH (08:21)
[2020-07-30] MEDS: CHOLECALCIFEROL 25 MCG (1000 IU) TABLET PO SCH (08:21)
[2020-07-30] MEDS: PANTOPRAZOLE 40 MG TABLET PO SCH ×2 (08:21→20:32)
[2020-07-30] MEDS: FLUCONAZOLE 100 MG TAB PO SCH (08:21)
[2020-07-30] MEDS: CHOLESTYRAMINE (WITH SUGAR) 4 GM PACKET PO SCH ×2 (08:21→17:56)
[2020-07-30] MEDS: METOPROLOL TARTRATE 12.5 MG TAB PO SCH (08:22)
[2020-07-30] MEDS: metOLazone 2.5 MG TAB PO SCH (08:22)
[2020-07-30] MEDS: ASCORBIC ACID 500 MG TAB PO SCH (08:22)
[2020-07-30] MEDS: FLECAINIDE 50 MG TAB PO SCH ×2 (08:22→22:28)
[2020-07-30] MEDS: COLCHICINE 0.6 MG EACH PO SCH (08:22)
[2020-07-30] MEDS: FLUTICASONE 50MCG/SPRAY NASAL 16GM EA NOSTRIL SCH (08:23)
[2020-07-30] MEDS: NON FORMULARY DRUG (Potassium Gluconate [Potassium Gluconate] 99 MG Tablet.Er) PO SCH (08:23)
[2020-07-30] MEDS: ENOXAPARIN 40 MG/0.4 ML SYRINGE SQ SCH (08:26)
[2020-07-30] MEDS: BUMETANIDE 0.25 MG/ML 4 ML VIAL IVP SCH (08:33)
[2020-07-30 11:51] LABS: Glucose,Whole Blood 171 mg/dL (75-99)
--- NOTE | 2020-07-30 13:59 | P.PN ---
Subjective Progress Note Date: 07/30/20 74-year-old female who was seen in the emergency department on 07/16/2020, at 1535. The patient presented with complaints of shortness of breath. The patient has a history of atrial fibrillation, obesity, congestive heart failure, and diabetes. She apparently was diagnosed with COVID 19 infection on July 09. Prior to being tested positive, the patient had 2 weeks of what she describes as a head cold. She started taking vitamins, and Decadron. More recently, she's been getting progressively worse as it relates to her shortness of breath, which now occurs on any activity. She does have some nausea, but denies any vomiting or diarrhea. She denies any chest pain. She denies any genitourinary complaints and lower extremity edema. Apparently her family doctor recommended that she come into the emergency room to be evaluated. A chest x-ray reveals some mild pulmonary interstitial pneumonia, and the CT angiogram revealed no evidence of any central or large pulmonary emboli, but did show extensive groundglass pulmonary interstitial infiltrates, consistent with her diagnosis of COVID19 pneumonia. Unfortunately, she is beyond the window for remdesivir. Currently, she is on 5 L nasal cannula, and her saturations are 99%. Her respiratory rate is 20, and her temperature is 97.6F. Blood pressure is good and heart rate is 71 bpm. Her current white count is 8.09, hemoglobin 10.1, hematocrit 34.7, and platelet count 137,000. Sodium is 135, potassium 4.9, chlorides 102, CO2 25, anion gap 8, BUN 17, and creatinine 0.8. D-dimer is 1.21, ferritin is 624, LDH is 1468, and C-reactive protein is 139. N-terminal proBNP was 1970. Pro-calcitonin level was 0.20. On 07/18/2020 patient seen in follow-up on medical floor, she is currently on 11 L of oxygen, she is awake and alert, she said nobody into the bed, apparently earlier she felt a little dizzy, she feels fatigued, be in no acute distress. Today's labs have been reviewed, showing white blood cell count of 18.5, hemoglobin is 10.4, his inflammatory markers are trending down, LDH is down to 943, CRP is down to 6.6, pro calcitonin level was 0.20. Continues on prophylactic dose of Lovenox, IV Decadron 6 mg daily, colchicine, and zinc On 07/19/2020 patient seen in follow-up on medical floor. She is currently up to 2 L of oxygen, her pulse ox is 91-94%, she states she feels better but she is requiring more oxygen, she states she is coughing up some phlegm. Today's chest x-ray has been reviewed showing central vascularity and interstitial increased, bilateral groundglass opacity within the lungs. And there is persistent elevation of the right hemidiaphragm. Patient seems to have increased edema in her lower extremities, she is currently on a daily dose of oral Bumex 1 mg daily, her lung sounds positive for scattered rhonchi. We will add empiric antibiotics, will afternoon dose of oral Bumex and obtain follow-up chest x-ray tomorrow. Physically she states she is feeling better, she is able to clear some phlegm. On 07/20/2020 patient seen in follow-up on medical floor, her oxygen requirements are continuously increasing, currently up to 15 L of oxygen per high flow nasal cannula and partial nonrebreather and her pulse ox is between 91-95%, afebrile. She is more dyspneic today, her lower extremities remain swollen, we did give the patient a dose of diuretics yesterday, however her neck fluid balance is very difficult to estimate. Her inflammatory markers have been reviewed, and pH is down to 780, and CRP is at 9.4, pro calcitonin level has decreased and is down to 0.12, however d-dimer has trended down and is up to 8.72, and we will adjust the dose of Lovenox to 0.5 mg/kg of body weight twice daily. Based Effexor has been reviewed showing worsening airspace disease, pneumonia and pulmonary edema. On 07/30/2020 patient seen in follow-up on medical floor, she is awake and alert, in no acute distress, currently sitting up in a chair, her pulse ox on 7 L of oxygen is 91%, patient does desaturate with exertion. She is breathing comfortably, no cough, no complaints of chest discomfort, she's been afebrile, hemodynamically she's been stable. Her inflammatory markers are improving, her last d-dimer on 07/26/2020 was 2.81. She continues on IV steroids 60 mg every 6 hours, she is on diuretics, IV Bumex 2 mg daily, in addition to Zaroxolyn 2.5 mg on Thursday and Thursday. She is diuresing, she is in -2.5 L fluid balance over the last 24 hours. Her stool culture was positive for Vianey albicans, and so was her sputum culture. She is on Diflucan. Her last chest x-ray was yesterday showing persistent interstitial infiltrates. No new labs today, no new chest x- ray, clinically patient has been stable, no complaints of nausea, vomiting or diarrhea. Lower extremity edema is improving. Objective - Vital Signs Vital signs: Vital Signs Temp 98.3 F 07/30/20 10:00 Pulse 75 07/30/20 10:00 Resp 20 07/30/20 10:00 BP 108/56 07/30/20 10:00 Pulse Ox 91 L 07/30/20 10:00 Intake & Output 07/29/20 07/30/20 07/30/20 18:59 06:59 18:59 Intake Total 200 450 Output Total 1300 Balance -1100 450 Weight 129 kg Intake: Oral 200 450 Output: Urine 1300 Other: Voiding Method Bedside Commode Bedside Commode # Voids 2 # Bowel Movements 1 - Exam GENERAL EXAM: Alert, very pleasant, 74-year-old white female 7 L of oxygen to partial nonrebreather mask, with pulse ox between 91-94% breathing is mildly to moderately labored HEAD: Normocephalic/atraumatic. EYES: Normal reaction of pupils, equal size. Conjunctiva pink, sclera white. NOSE: Clear with pink turbinates. THROAT: No erythema or exudates. NECK: No masses, no JVD, no thyroid enlargement, no adenopathy. CHEST: No chest wall deformity. Symmetrical expansion. LUNGS: Equal air entry with no crackles, wheeze, rhonchi or dullness. CVS: Regular rate and rhythm, normal S1 and S2, no gallops, no murmurs, no rubs ABDOMEN: Soft, nontender. No hepatosplenomegaly, normal bowel sounds, no guarding or rigidity. EXTREMITIES: No clubbing, no edema, no cyanosis, 2+ pulses and upper and lower extremities. MUSCULOSKELETAL: Muscle strength and tone normal. SPINE: No scoliosis or deformity SKIN: No rashes CENTRAL NERVOUS SYSTEM: Alert and oriented -3. No focal deficits, tone is normal in all 4 extremities. PSYCHIATRIC: Alert and oriented -3. Appropriate affect. Intact judgment and insight. - Labs CBC & Chem 7: 07/29/20 06:34 07/29/20 06:34 Labs: Abnormal Lab Results - Last 24 Hours (Table) 07/29/20 07/29/20 07/30/20 Range/Units 17:16 20:01 07:42 POC Glucose (mg/dL) 211 H 222 H 215 H (75-99) mg/dL 07/30/20 Range/Units 11:44 POC Glucose (mg/dL) 171 H (75-99) mg/dL Assessment and Plan Plan: Assessment: #1. Acute hypoxemic respiratory failure secondary to COVID 19 pneumonia. On 05/19/2021 patient hypoxemia is worsening, and patient is currently on 15 L per high flow nasal cannula in addition to nonrebreather mask with pulse ox of 91-96%, she will be given 2 units of convalescent plasma if available, and her steroids have been increased to 60 mg every 6 hours. Chest x-ray shows worsening airspace disease 07/30/2020 patient is down to 7 L of oxygen a pulse ox of 91-94%, inflammatory markers are improving, overall patient is doing better #2. History of diabetes mellitus. #3. History of atrial fibrillation. #4. History of congestive heart failure. #5. History of osteoarthritis. #6. History of chronic back pain. #7. Status post lap band surgery for obesity. #8. History of deafness. Plan: Continue current medical treatment, continue diuretics, continue IV steroids, nebulized bronchodilators, continue attempting to wean down FiO2, follow-up chest x-ray tomorrow, follow up labs, inflammatory markers are improving, overall clinically patient is breathing comfortably, no worsening dyspnea, no fever. Would like to see further improvement in FiO2 requirement before considering discharge home. We'll continue to follow. I performed a history & physical examination of the patient and discussed their management with my nurse practitioner, Corrina Paz. I reviewed the nurse practitioner's note and agree with the documented findings and plan of care. Lung sounds are positive for diminished breath sounds. The findings and the impression was discussed with the patient. I attest to the documentation by the nurse practitioner. Time with Patient: Less than 30
[2020-07-30 14:43] LABS: Basophils # (A) 0.01 X 10*3/uL (0.00-0.10); Basophils % (A) 0.1 %; Eosinophils # (A) 0 X 10*3/uL (0.04-0.35); Eosinophils % (A) 0 %; HCT 40.2 % (37.2-46.3); HGB 11.6 g/dL (12.0-15.0); Lymphocytes # (A) 0.24 X 10*3/uL (0.90-5.00); Lymphocytes % (A) 2.1 %; MCH 22.2 pg (27.0-32.0); MCHC 28.9 g/dL (32.0-37.0); MCV 76.9 fL (80.0-97.0); Monocytes # (A) 0.32 X 10*3/uL (0.20-1.00); Monocytes % (A) 2.7 %; Neutrophils % (A) 93.6 %; Platelet Count 191 X 10*3/uL (140-440); RBC 5.23 X 10*6/uL (4.10-5.20); RDW 19.5 % (11.5-14.5); WBC 11.65 X 10*3/uL (4.50-10.00)
[2020-07-30 15:56] LABS: ALT 151 U/L (8-44); AST 86 U/L (13-35); African American GFR (CKD) 57.7 (60.0-200.0); Alkaline Phosphatase 142 U/L (41-126); BUN/Creat Ratio 41.82 Ratio (12.00-20.00); C Reactive Protein <0.4 mg/dL (0.0-0.8); Calcium 8.3 mg/dL (8.7-10.3); Carbon Dioxide 31.8 mmol/L (21.6-31.8); Chloride 93 mmol/L (96-109); Globulin 3.1 g/dL (1.6-3.3); Glucose 213 mg/dL (70-110); LDH 498 U/L (120-246); Non-African American GFR(CKD) 49.8 (60.0-200.0); Sodium 134 mmol/L (135-145); Total Bilirubin 1.2 mg/dL (0.3-1.2); Total Protein 6.2 g/dL (6.2-8.2)
[2020-07-30 17:18] LABS: Glucose,Whole Blood 102 mg/dL (75-99)
[2020-07-30 20:18] LABS: Glucose,Whole Blood 160 mg/dL (75-99)
[2020-07-30] MEDS: LINAGLIPTIN 5 MG TABLET PO SCH (20:32)
[2020-07-30] MEDS: MELATONIN 3 MG TABLET PO SCH (20:32)
[2020-07-30] MEDS: OXYMETAZOLINE 0.05% NASL SPRAY 1 SPRAY BOTTLE NASAL SCH (20:33)
[2020-07-31] MEDS: ACETAMINOPHEN TAB 325 MG TAB PO PRN ×3 (04:12→21:01)
[2020-07-31] MEDS: methylPREDNISolone SOD SUCCI 125 MG/2 ML VIAL IV SCH ×2 (05:25→09:27)
[2020-07-31] MEDS ORDERED: INSULIN DETEMIR (LEVEMIR) 100 UNIT/ML SYR SQ SCH (07:00)
[2020-07-31 07:26] LABS: Glucose,Whole Blood 247 mg/dL (75-99)
--- NOTE | 2020-07-31 08:38 | P.PN ---
Subjective Progress Note Date: 07/30/20 74-year-old morbidly obese female one of my office patient with past medical history of A. fib with RVR, history of acute gastrointestinal bleed with anemia, history of type 2 diabetes, history of obstructive sleep apnea, mild reactive airway/COPD and mild diastolic congestive heart failure who has been seen in the office the last week for acute Covid, patient was diagnosed on the ended up going for monoclonal anti-body infusion on the . Patient called office with worsening symptoms was seen in virtual visit and was recommended to go to the hospital to be admitted. Patient has been having worsening dyspnea and shortness of breath along with severe hypoxia worsening persistent cough prod uctive of phlegm along with mild twinges of blood. Patient was seen at the emergency department her pulse ox was in the 80 percentile with a few breathing treatment along with 3 L of O2 her pulse ox was increased to the low 90. Patient chest x-ray showed severe interstitial pneumonitis. Her d-dimer was elevated and ended up going for CTA showed extensive ground glass pulmonary interstitial edema could be related to RDS no pleural effusion found at the time. Patient was started on steroids along with updraft treatment O2 will consult pulmonary admit patient to the hospital. 2/2: The patient states that she is feeling much better today. She states that she did not sleep well last night. She is found sitting up in recliner and appears to be comfortable and in no acute distress. She has been afebrile, heart rate 72, blood pressure 160/83, pulse ox 92-98% on 5 L nasal cannula. Consult in place from pulmonary medicine. Blood sugars are running in the 200s. WBC 8, hemoglobin 10.1. Repeat lactic acid 1.7. IV fluids will be discontinued. Patient is on her home dose of Bumex. 2/3: Patient has been afebrile, heart rate 79, blood pressure 162/69, pulse ox 93% on 10 L nasal cannula. Patient complains of shortness of breath and feeling cold. She continues to cough. WBC is 18.5, hemoglobin 10.4, electrolytes normal. Creatinine 0.9. Total bilirubin 0.9, AST 88, ALT 44, alkaline phosphatase 143, LDH 943, C reactive protein 6.6. Overall, inflammatory markers are improving. Patient has been seen by pulmonary medicine and is outside of the window for Remdesivir treatment. Colchicine was added 07/19:tates that she was unable to sleep all night. She was on a nonrebreather and she felt she had a panic attack. She states that she is normally claustrophobic. She is currently seen on 15 L with pulse ox of 91%. She appears to be comfortable at rest. She is complaining of dark brown sputum production. She is also having mild nosebleed with dried blood only. Blood sugars are running between 257-300. D-dimer 8.72. LDH and CRP are pending. Patient has been afebrile, heart rate 82, blood pressure 144/51. She will probably not be ready for discharge until Thursday. 07/20: Patient has developed increasing shortness of breath overnight. She is now requiring high flow nasal cannula and nonrebreather with pulse ox of 91-95%. She has been afebrile, heart rate 77, blood pressure 178/79. Blood sugars are running between 132 and 261. Convalescent plasma has been ordered by pulmonary medicine today. Steroids have been changed to Solu-Medrol 60 mg IV every 6 melly rs. Lovenox increased to 70 mg subcu twice daily. Antibiotics in the form of Augmentin. 07/21: Patient states that she is feeling better compared to yesterday. She continues to be on 15 L high flow not nasal cannula and nonrebreather. We'll continue to attempt to wean. Receiving Bumex 2 mg IV. Continues to have lower extremity swelling bilaterally. Patient received [address] asma. She was complaining of dryness to bilateral nares. Flonase added. Patient remains afebrile, pulse rate 56, blood pressure 167/73, pulse ox 94% on nonrebreather and high flow oxygen. Discussed with patient's CODE STATUS. Patient states that she does not want to be intubated or have CPR performed. We will change her CODE STATUS to no code. 07/22: Patient is found sitting up in chair continue to utilize 15 L of high flow oxygen be significantly cannula nonrebreather pulse oxing 98%. Patient states that she is feeling better able to breathe easier. She has been having diarrhea for the past few days 3-4 episodes yesterday and only one today. Patient denies any abdominal discomfort or blood in stool. She is currently on Augmentin. We will do stool cultures including C. diff. 07/23: Patient remains on high flow nasal cannula 15 L with nonrebreather at her bedside. She is pulse oxing 91 and 94%. She's been afebrile, heart rate in the 70s, blood pressure 123/74. Blood sugars have been between 193 and 339. Anticipate need for oxygen at home. 07/24: Patient is on oxygen at 15 L high flow nasal cannula with pulse ox of 95%. She has been afebrile, heart rate 74, blood pressure 135/75. WBC 9.8, hemoglobin 10.3, platelet count 95. Sodium 136, potassium 3. former be replaced . BUN 35 and creatinine 1. Blood sugars running in the 200s. AST 37, ALT 48. Anticipate that the patient will require home oxygen at the time of discharge. 07/25: Pulse ox is 93% on 15 L high flow nasal cannula and partial rebreather. She's been afebrile, heart rate 89, blood pressure 127/74. Blood sugars running between 128 and 262. Repeat chest x-ray reveals stable findings. Correlate for pneumonia. Patient has been maintained on Augmentin, colchicine, Lovenox, IV Solu-Medrol and supplements. We'll order one additional dose of Bumex this afternoon. 07/26: Patient continues to have cough with hemoptysis, she has shortness of breath with minimal activity. Pulse ox is 91-95% on 15 L high flow nasal cannula. We will add in Tessalon pearls. She continues to have thrush for whic h she is on Diflucan. Bumex increased to 2 mg IV push twice daily. She has been afebrile, heart rate 77, blood pressure 143/68. Repeat blood work reveals WBC 9, hemoglobin 11.2, platelet count 87. Sodium 136, potassium 3.7, CO2 34, BUN 44 and creatinine 0.8. Blood sugars are running 186-237. AST at 73, ALT 73. Repeat LDH 732. C-reactive protein less than 5. Patient will continue treatment in the hospital until oxygenation is improved and she is down to 5 or 6 L nasal cannula. 07/27: Patient is pulse oxing 91-95% on 15 L high flow nasal cannula. She has been afebrile, heart rate 80, blood pressure 139/81. Blood sugars are running between 163 and 246. Patient is continued on IV Solu-Medrol, supplements, Lovenox. 07/28: Patient has been diuresing very well, she has significant weight loss, per patient she has now lost 45 pounds for the past 2 weeks, shortness breath is also much better, pulse oximetry is now are between 90-96%, 11 L nasal cannula, vital signs stable, no fever no chills, no diarrhea, decreas Bumex now to 2 mg daily, she has dyspnea on exertion, minimal conversational dyspnea however this has improved. No lightheadedness no falls 07/29 patient feels not somewhat worse, she seems to slightly be better, has lost 2 more pounds, still diuresing at nighttime, complains of being tired or sleepy during the day, not sleeping well at night. Appetite is much better, no nausea no respiratory events, still 8 L nasal cannula 91%, still has anasarca mainly in the legs, resolved edema in the upper extremities , start melatonin for sleep hygiene worship, on Zaroxolyn Thursday 2.5, still on Solu-Medrol 60 mg every 6 hours, Bumex at 2 mg IV daily. Potassium at 3.4, being replaced 07/30: Blood sugars are in the low 200s, Levemir will be increased to 50 units daily which will start tomorrow. She is currently on Solu-Medrol 60 mg IV every 6 hours. Patient has been afebrile, heart rate 75, blood pressure 108/56. Pulse ox is 91-94% on 7 L high flow nasal cannula which is an improvement over the weekend. Patient does desaturate with exertion. She has been continued onIV Bumex 2 mg daily, in addition to Zaroxolyn 2.5 mg on Thursday and Thursday. She is diuresing, she is in -2.5 L fluid balance over the last 24 hours. Lower extremity edema is improved. Her stool culture was positive for Vianey albicans, and so was her sputum culture. She is on Diflucan. Her last chest x- ray was yesterday showing persistent interstitial infiltrates. Afrin spray added. REVI EW OF SYSTEMS CONSTITUTIONAL: Well-developed with no respiratory distress at rest. Denies fevers. Denies chills. EYES: No icterus sclerae, no conjunctivitis. EARS, NOSE, MOUTH, THROAT, and FACE: Reports nasal congestion. No sore throat, lymphadenopathy, carotid bruits or deformity. RESPIRATORY: Moderate dyspnea and shortness of breath and cough. Dyspnea with exertion. Dyspnea at rest. CARDIOVASCULAR: Positive PND orthopnea . Denies palpitation with no angina. GASTROINTESTINAL: No Abd pain, Nausea or vomiting, no Diarrhea or constipation, No GI Bleed, no distention or masses. GENITOURINARY: Negative for Hematuria or UTI, no kidney stones. INTEGUMENT/BREAST: Negative for any muscular injury with mild osteoarthritis. Chronic edema. HEMATOLOGIC/LYMPHATIC: Negative for bleed or purpura. MUSCULOSKELTAL: Negative for Myalgia or arthralgia. Significant arthralgia and myalgia. NEURLOGICAL: No LOC, Sz or syncope, blurred vision dizziness or abnormality.. BEHAVIORAL/PSYCH: Negative. ENDOCRLavina blood sugars PHYSICAL EXAMINATION General Appearance: Alert, cooperative, morbidly obese in no respiratory distress. Patient is resting comfortably in chair. Neck HEENT: Supple, no lymphadenopathy, no thyroid enlargement, no carotid bruits. Lungs: Decreased breath some bilateral expiratory wheezes. Positive mild accessory muscle usage Chest Wall: Decrease expansion with deep inspiration no tenderness and no def ormity was found on exam, no costochondral pain or discomfort. Heart: Regular rate and rhythm, S1, S2 positive systolic murmur with S3. Back: Symmetric, no curvature, ROM normal, no CVA tenderness. Abdomen: Soft, non-tender, bowel sounds active all four quadrants, no masses, no organomegaly. Extremities: 1+ edema and decreased pulses bilaterally. Pulses: 1+ and symmetric. Skin: Skin color, texture, tugor normal, no rashes or lesions. Neurologic: Alert oriented x3 cranial nerves II through XII intact, no motor deficit, no abnormal balance or gait. ASSESSMENT AND PLAN 1 acute hypoxic respiratory failure secondary to acute Covid pneumonitis with worsening symptoms. Consult with pulmonary medicine. Continue Solu-Medrol 60 mg IV every 6 hours, convalescent plasma, Augmentin, vitamin C, vitamin D, colchicine, oxygen support, lovenox increased to 70 mg twice daily. Continue Bumex 2 mg IV push twice daily and zaroxyln. Continue Tessalon Perles, Afrin added. 2 acute Covid pneumonitis with worsening symptoms. Continue as in #1. 3 COPD continue albuterol inhaler. 4. Paroxysmal atrial fibrillation, unable to tolerate anticoagulation secondary to acute GI bleed, continue metoprolol 12.5 mg twice daily and flecainide 50 mg twice a day. 5 type 2 diabetes, uncontrolled with hyperglycemia secondary to steroids. Continue Accu-Chek with sliding scales coverage continue Lantus increased to 50 units daily and still on Januvia. And scheduled NovoLog 3u increased to 6 units with meals 6 chronic diastolic heart failure. Continue Bumex 1 mg twice brandon IV y, Lopressor. 7 peptic ulcer disease and GI prophylaxis: Continue patient on pantoprazole 40 mg daily. 8 chronic anemia: Remain on iron supplement and multivitamins no need for transfusion. 9 mild hyponatremia: Most likely SIADH from pneumonia will continue mild gentle hydration repeat chemistry in the next 24 hours. 10 DVT prophylaxis: Patient will be on Lovenox subcutaneous daily. 11 GI prophylaxis: Will be on pantoprazole. 12. Diarrhea. Stool cultures. C. diff negative. Diarrhea most likely secondary to Augmentin. CODE STATUS: No Code DISCHARGE PLAN Most likely home this week. Patient may require home oxygen. Impression and plan of care have been directed as dictated by the signing physician. Leeann Rose nurse practitioner acting as scribe for signing physician. Objective - Vital Signs Vital signs: Vital Signs Temp 98.3 F 07/30/20 10:00 Pulse 75 07/30/20 10:00 Resp 20 07/30/20 10:00 BP 108/56 07/30/20 10:00 Pulse Ox 91 L 07/30/20 10:00 Intake & Output 07/29/20 07/30/20 07/30/20 18:59 06:59 18:59 Intake Total 200 450 Output Total 1300 Balance -1100 450 Weight 129 kg Intake: Oral 200 450 Output: Urine 1300 Other: Voiding Method Bedside Commode Bedside Commode # Voids 2 # Bowel Movements 1 - Labs CBC & Chem 7: 07/30/20 09:02 07/30/20 09:02 Labs: Abnormal Lab Results - Last 24 Hours (Table) 07/29/20 07/29/20 07/29/20 Range/Units 06:34 06:34 11:41 WBC 11.98 H (4.50-10.00) X 10*3/uL Hgb 11.1 L (12.0-15.0) g/dL MCV 75.6 L (80.0-97.0) fL MCH 22.2 L (27.0-32.0) pg MCHC 29.4 L (32.0-37.0) g/dL RDW 18.8 H (11.5-14.5) % Immature Gran # 0.10 H (0.00-0.04) X 10*3/uL Neutrophils # 11.18 H (1.80-7.70) X 10*3/uL Lymphocytes # 0.21 L (0.90-5.00) X 10*3/uL Eosinophils # 0 L (0.04-0.35) X 10*3/uL Potassium 3.4 L (3.5-5.5) mmol/L Chloride 93 L (96-109) mmol/L Carbon Dioxide 36.8 H (21.6-31.8) mmol/L BUN 44.0 H (9.0-27.0) mg/dL Est GFR (CKD-EPI)AfAm 51.9 L (60.0-200.0) Est GFR (CKD-EPI)NonAf 44.8 L (60.0-200.0) BUN/Creatinine Ratio 36.67 H (12.00-20.00) Ratio Glucose 201 H (70-110) mg/dL POC Glucose (mg/dL) 175 H (75-99) mg/dL Calcium 8.2 L (8.7-10.3) mg/dL AST 69 H (13-35) U/L ALT 126 H (8-44) U/L Alkaline Phosphatase 136 H (41-126) U/L Lactate Dehydrogenase 340 H (120-246) U/L Total Protein 6.1 L (6.2-8.2) g/dL Albumin 3.00 L (3.80-4.90) g/dL Albumin/Globulin Ratio 0.97 L (1.60-3.17) g/dL 07/29/20 07/29/20 07/30/20 Range/Units 17:16 20:01 07:42 WBC (4.50-10.00) X 10*3/uL Hgb (12.0-15.0) g/dL MCV (80.0-97.0) fL MCH (27.0-32.0) pg MCHC (32.0-37.0) g/dL RDW (11.5-14.5) % Immature Gran # (0.00-0.04) X 10*3/uL Neutrophils # (1.80-7.70) X 10*3/uL Lymphocytes # (0.90-5.00) X 10*3/uL Eosinophils # (0.04-0.35) X 10*3/uL Potassium (3.5-5.5) mmol/L Chloride (96-109) mmol/L Carbon Dioxide (21.6-31.8) mmol/L BUN (9.0-27.0) mg/dL Est GFR (CKD-EPI)AfAm (60.0-200.0) Est GFR (CKD-EPI)NonAf (60.0-200.0) BUN/Creatinine Ratio (12.00-20.00) Ratio Glucose (70-110) mg/dL POC Glucose (mg/dL) 211 H 222 H 215 H (75-99) mg/dL Calcium (8.7-10.3) mg/dL AST (13-35) U/L ALT (8-44) U/L Alkaline Phosphatase (41-126) U/L Lactate Dehydrogenase (120-246) U/L Total Protein (6.2-8.2) g/dL Albumin (3.80-4.90) g/dL Albumin/Globulin Ratio (1.60-3.17) g/dL
[2020-07-31] MEDS: ALBUTEROL HFA INHALER INHALATION PRN ×2 (09:05→11:45)
[2020-07-31] MEDS: OXYMETAZOLINE 0.05% NASL SPRAY 1 SPRAY BOTTLE NASAL SCH ×2 (09:26→21:03)
[2020-07-31] MEDS: BUMETANIDE 0.25 MG/ML 4 ML VIAL IVP SCH (09:26)
[2020-07-31] MEDS: BENZONATATE 100 MG CAP PO SCH ×3 (09:27→21:01)
[2020-07-31] MEDS: CHOLECALCIFEROL 25 MCG (1000 IU) TABLET PO SCH ×2 (09:27→09:28)
[2020-07-31] MEDS: FLECAINIDE 50 MG TAB PO SCH ×2 (09:27→21:01)
[2020-07-31] MEDS: METOPROLOL TARTRATE 12.5 MG TAB PO SCH (09:27)
[2020-07-31] MEDS: ASCORBIC ACID 500 MG TAB PO SCH (09:27)
[2020-07-31] MEDS: ZINC SULFATE 220 MG CAP PO SCH (09:27)
[2020-07-31] MEDS: COLCHICINE 0.6 MG EACH PO SCH (09:28)
[2020-07-31] MEDS: POTASSIUM CHLORIDE ER 20 MEQ TAB.ER PO SCH (09:28)
[2020-07-31] MEDS: FLUCONAZOLE 100 MG TAB PO SCH (09:28)
[2020-07-31] MEDS: ENOXAPARIN 40 MG/0.4 ML SYRINGE SQ SCH (09:29)
[2020-07-31] MEDS: CHOLESTYRAMINE (WITH SUGAR) 4 GM PACKET PO SCH ×2 (09:29→17:50)
[2020-07-31] MEDS: PANTOPRAZOLE 40 MG TABLET PO SCH ×2 (09:29→21:01)
[2020-07-31] MEDS: INSULIN ASPART (NovoLOG) 100 UNIT/ML VIAL SQ SCH ×7 (09:30→21:07)
--- NOTE | 2020-07-31 10:05 | XR ---
EXAMINATION TYPE: XR chest 1V portable DATE OF EXAM: 07/31/2020 COMPARISON: 07/29/2020 HISTORY: Shortness of breath TECHNIQUE: Single frontal view of the chest is obtained. FINDINGS: Bilateral areas of increased interstitial markings and patchy infiltrate with small effusi on stable. Heart enlarged. No pneumothorax. Arthropathy of the shoulders. IMPRESSION: 1. Bilateral mixed interstitial alveolar pattern suggestive of pneumonia and superimposed interstitia l pneumonitis. Findings stable.
[2020-07-31 11:44] LABS: Glucose,Whole Blood 253 mg/dL (75-99)
[2020-07-31 11:48] LABS: Basophils # (A) 0.02 X 10*3/uL (0.00-0.10); Basophils % (A) 0.2 %; Eosinophils # (A) 0 X 10*3/uL (0.04-0.35); Eosinophils % (A) 0 %; HCT 38.3 % (37.2-46.3); HGB 10.8 g/dL (12.0-15.0); Lymphocytes # (A) 0.18 X 10*3/uL (0.90-5.00); Lymphocytes % (A) 1.4 %; MCH 21.7 pg (27.0-32.0); MCHC 28.2 g/dL (32.0-37.0); MCV 77.1 fL (80.0-97.0); Monocytes # (A) 0.44 X 10*3/uL (0.20-1.00); Monocytes % (A) 3.5 %; Neutrophils # (A) 11.76 X 10*3/uL (1.80-7.70); Neutrophils % (A) 93.5 %; Platelet Count 169 X 10*3/uL (140-440); RBC 4.97 X 10*6/uL (4.10-5.20); RDW 19.6 % (11.5-14.5); WBC 12.57 X 10*3/uL (4.50-10.00)
[2020-07-31 12:13] LABS: ALT 133 U/L (8-44); AST 60 U/L (13-35); African American GFR (CKD) 57.7 (60.0-200.0); Albumin/Globulin Ratio 1.12 (1.60-3.17); Alkaline Phosphatase 135 U/L (41-126); BUN/Creat Ratio 50.91 Ratio (12.00-20.00); C Reactive Protein <0.4 mg/dL (0.0-0.8); Calcium 8.1 mg/dL (8.7-10.3); Chloride 94 mmol/L (96-109); Globulin 2.6 g/dL (1.6-3.3); Glucose 270 mg/dL (70-110); LDH 329 U/L (120-246); Non-African American GFR(CKD) 49.8 (60.0-200.0); Potassium 3.3 mmol/L (3.5-5.5); Sodium 136 mmol/L (135-145); Total Protein 5.5 g/dL (6.2-8.2)
[2020-07-31] MEDS: predniSONE 10 MG TAB PO SCH (14:28)
--- NOTE | 2020-07-31 15:13 | P.PN ---
Subjective Progress Note Date: 07/31/20 74-year-old female who was seen in the emergency department on 07/16/2020, at 1535. The patient presented with complaints of shortness of breath. The patient has a history of atrial fibrillation, obesity, congestive heart failure, and diabetes. She apparently was diagnosed with COVID 19 infection on July 09. Prior to being tested positive, the patient had 2 weeks of what she describes as a head cold. She started taking vitamins, and Decadron. More recently, she's been getting progressively worse as it relates to her shortness of breath, which now occurs on any activity. She does have some nausea, but denies any vomiting or diarrhea. She denies any chest pain. She denies any genitourinary complaints and lower extremity edema. Apparently her family doctor recommended that she come into the emergency room to be evaluated. A chest x-ray reveals some mild pulmonary interstitial pneumonia, and the CT angiogram revealed no evidence of any central or large pulmonary emboli, but did show extensive groundglass pulmonary interstitial infiltrates, consistent with her diagnosis of COVID19 pneumonia. Unfortunately, she is beyond the window for remdesivir. Currently, she is on 5 L nasal cannula, and her saturations are 99%. Her respiratory rate is 20, and her temperature is 97.6F. Blood pressure is good and heart rate is 71 bpm. Her current white count is 8.09, hemoglobin 10.1, hematocrit 34.7, and platelet count 137,000. Sodium is 135, potassium 4.9, chlorides 102, CO2 25, anion gap 8, BUN 17, and creatinine 0.8. D-dimer is 1.21, ferritin is 624, LDH is 1468, and C-reactive protein is 139. N-terminal proBNP was 1970. Pro-calcitonin level was 0.20. On 07/18/2020 patient seen in follow-up on medical floor, she is currently on 11 L of oxygen, she is awake and alert, she said nobody into the bed, apparently earlier she felt a little dizzy, she feels fatigued, be in no acute distress. Today's labs have been reviewed, showing white blood cell count of 18.5, hemoglobin is 10.4, his inflammatory markers are trending down, LDH is down to 943, CRP is down to 6.6, pro calcitonin level was 0.20. Continues on prophylactic dose of Lovenox, IV Decadron 6 mg daily, colchicine, and zinc On 07/19/2020 patient seen in follow-up on medical floor. She is currently up to 2 L of oxygen, her pulse ox is 91-94%, she states she feels better but she is requiring more oxygen, she states she is coughing up some phlegm. Today's chest x-ray has been reviewed showing central vascularity and interstitial increased, bilateral groundglass opacity within the lungs. And there is persistent elevation of the right hemidiaphragm. Patient seems to have increased edema in her lower extremities, she is currently on a daily dose of oral Bumex 1 mg daily, her lung sounds positive for scattered rhonchi. We will add empiric antibiotics, will afternoon dose of oral Bumex and obtain follow-up chest x-ray tomorrow. Physically she states she is feeling better, she is able to clear some phlegm. On 07/20/2020 patient seen in follow-up on medical floor, her oxygen requirements are continuously increasing, currently up to 15 L of oxygen per high flow nasal cannula and partial nonrebreather and her pulse ox is between 91-95%, afebrile. She is more dyspneic today, her lower extremities remain swollen, we did give the patient a dose of diuretics yesterday, however her neck fluid balance is very difficult to estimate. Her inflammatory markers have been reviewed, and pH is down to 780, and CRP is at 9.4, pro calcitonin level has decreased and is down to 0.12, however d-dimer has trended down and is up to 8.72, and we will adjust the dose of Lovenox to 0.5 mg/kg of body weight twice daily. Based Effexor has been reviewed showing worsening airspace disease, pneumonia and pulmonary edema. On 07/30/2020 patient seen in follow-up on medical floor, she is awake and alert, in no acute distress, currently sitting up in a chair, her pulse ox on 7 L of oxygen is 91%, patient does desaturate with exertion. She is breathing comfortably, no cough, no complaints of chest discomfort, she's been afebrile, hemodynamically she's been stable. Her inflammatory markers are improving, her last d-dimer on 07/26/2020 was 2.81. She continues on IV steroids 60 mg every 6 hours, she is on diuretics, IV Bumex 2 mg daily, in addition to Zaroxolyn 2.5 mg on Thursday and Thursday. She is diuresing, she is in -2.5 L fluid balance over the last 24 hours. Her stool culture was positive for Vianey albicans, and so was her sputum culture. She is on Diflucan. Her last chest x-ray was yesterday showing persistent interstitial infiltrates. No new labs today, no new chest x- ray, clinically patient has been stable, no complaints of nausea, vomiting or diarrhea. Lower extremity edema is improving. On 07/31/2020 patient seen in follow-up. Patient is on 7 L of oxygen, we dropped the FiO2 down to 4-1/2 L, and her pulse ox is maintained at 93-94%, patient still does have exertional dyspnea, but overall she is improving, she is awake and alert, oriented 3, no altered mentation, increased questions appropriately, she's had no fever or chills, vital signs have been stable, no worsening dyspnea, no cough or chest pain. Follow-up chest x-ray today shows bilateral areas of increased interstitial markings and patchy infiltrates with small effusions stable in appearance. Patient has been on high-dose IV steroids with Solu-Medrol 60 mg every 6 hours, she is on prophylactic dose of Lovenox 40 mg daily, she remains on IV Bumex at 2 mg daily, she is on bronchodilators, she is on oral Diflucan. She's had no acute events overnight. Today's labs have been reviewed, inflammatory markers are improving. No complaints of nausea vomiting or diarrhea. Patient is tolerating oral intake. Objective - Vital Signs Vital signs: Vital Signs Temp 97.8 F 07/31/20 14:00 Pulse 68 07/31/20 14:00 Resp 19 07/31/20 14:00 BP 120/74 07/31/20 14:00 Pulse Ox 91 L 07/31/20 14:00 Intake & Output 07/30/20 07/31/20 07/31/20 18:59 06:59 18:59 Intake Total 600 400 Output Total 600 Balance 0 400 Intake: Oral 600 400 Output: Urine 600 Other: Voiding Method Bedside Commode # Voids 2 1 1 # Bowel Movements 1 1 - Exam GENERAL EXAM: Alert, very pleasant, 74-year-old white female 4.5 L of oxygen to partial nonrebreather mask, with pulse ox between 91-93% breathing is mildly to moderately labored HEAD: Normocephalic/atraumatic. EYES: Normal reaction of pupils, equal size. Conjunctiva pink, sclera white. NOSE: Clear with pink turbinates. THROAT: No erythema or exudates. NECK: No masses, no JVD, no thyroid enlargement, no adenopathy. CHEST: No chest wall deformity. Symmetrical expansion. LUNGS: Equal air entry with no crackles, wheeze, rhonchi or dullness. CVS: Regular rate and rhythm, normal S1 and S2, no gallops, no murmurs, no rubs ABDOMEN: Soft, nontender. No hepatosplenomegaly, normal bowel sounds, no guarding or rigidity. EXTREMITIES: No clubbing, no edema, no cyanosis, 2+ pulses and upper and lower extremities. MUSCULOSKELETAL: Muscle strength and tone normal. SPINE: No scoliosis or deformity SKIN: No rashes CENTRAL NERVOUS SYSTEM: Alert and oriented -3. No focal deficits, tone is normal in all 4 extremities. PSYCHIATRIC: Alert and oriented -3. Appropriate affect. Intact judgment and insight. - Labs CBC & Chem 7: 07/31/20 05:48 07/31/20 05:48 Labs: Abnormal Lab Results - Last 24 Hours (Table) 07/30/20 07/30/20 07/30/20 Range/Units 09:02 17:09 20:16 WBC (4.50-10.00) X 10*3/uL Hgb (12.0-15.0) g/dL MCV (80.0-97.0) fL MCH (27.0-32.0) pg MCHC (32.0-37.0) g/dL RDW (11.5-14.5) % Immature Gran # (0.00-0.04) X 10*3/uL Neutrophils # (1.80-7.70) X 10*3/uL Lymphocytes # (0.90-5.00) X 10*3/uL Eosinophils # (0.04-0.35) X 10*3/uL Sodium 134 L (135-145) mmol/L Potassium (3.5-5.5) mmol/L Chloride 93 L (96-109) mmol/L Carbon Dioxide (21.6-31.8) mmol/L BUN 46.0 H (9.0-27.0) mg/dL Est GFR (CKD-EPI)AfAm 57.7 L (60.0-200.0) Est GFR (CKD-EPI)NonAf 49.8 L (60.0-200.0) BUN/Creatinine Ratio 41.82 H (12.00-20.00) Ratio Glucose 213 H (70-110) mg/dL POC Glucose (mg/dL) 102 H 160 H (75-99) mg/dL Calcium 8.3 L (8.7-10.3) mg/dL AST 86 H (13-35) U/L ALT 151 H (8-44) U/L Alkaline Phosphatase 142 H (41-126) U/L Lactate Dehydrogenase 498 H (120-246) U/L Total Protein (6.2-8.2) g/dL Albumin 3.10 L (3.80-4.90) g/dL Albumin/Globulin Ratio 1.00 L (1.60-3.17) g/dL 07/31/20 07/31/20 07/31/20 Range/Units 05:48 05:48 07:25 WBC 12.57 H (4.50-10.00) X 10*3/uL Hgb 10.8 L (12.0-15.0) g/dL MCV 77.1 L (80.0-97.0) fL MCH 21.7 L (27.0-32.0) pg MCHC 28.2 L (32.0-37.0) g/dL RDW 19.6 H (11.5-14.5) % Immature Gran # 0.17 H (0.00-0.04) X 10*3/uL Neutrophils # 11.76 H (1.80-7.70) X 10*3/uL Lymphocytes # 0.18 L (0.90-5.00) X 10*3/uL Eosinophils # 0 L (0.04-0.35) X 10*3/uL Sodium (135-145) mmol/L Potassium 3.3 L (3.5-5.5) mmol/L Chloride 94 L (96-109) mmol/L Carbon Dioxide 33.0 H (21.6-31.8) mmol/L BUN 56.0 H (9.0-27.0) mg/dL Est GFR (CKD-EPI)AfAm 57.7 L (60.0-200.0) Est GFR (CKD-EPI)NonAf 49.8 L (60.0-200.0) BUN/Creatinine Ratio 50.91 H (12.00-20.00) Ratio Glucose 270 H (70-110) mg/dL POC Glucose (mg/dL) 247 H (75-99) mg/dL Calcium 8.1 L (8.7-10.3) mg/dL AST 60 H (13-35) U/L ALT 133 H (8-44) U/L Alkaline Phosphatase 135 H (41-126) U/L Lactate Dehydrogenase 329 H (120-246) U/L Total Protein 5.5 L (6.2-8.2) g/dL Albumin 2.90 L (3.80-4.90) g/dL Albumin/Globulin Ratio 1.12 L (1.60-3.17) g/dL 07/31/20 Range/Units 11:42 WBC (4.50-10.00) X 10*3/uL Hgb (12.0-15.0) g/dL MCV (80.0-97.0) fL MCH (27.0-32.0) pg MCHC (32.0-37.0) g/dL RDW (11.5-14.5) % Immature Gran # (0.00-0.04) X 10*3/uL Neutrophils # (1.80-7.70) X 10*3/uL Lymphocytes # (0.90-5.00) X 10*3/uL Eosinophils # (0.04-0.35) X 10*3/uL Sodium (135-145) mmol/L Potassium (3.5-5.5) mmol/L Chloride (96-109) mmol/L Carbon Dioxide (21.6-31.8) mmol/L BUN (9.0-27.0) mg/dL Est GFR (CKD-EPI)AfAm (60.0-200.0) Est GFR (CKD-EPI)NonAf (60.0-200.0) BUN/Creatinine Ratio (12.00-20.00) Ratio Glucose (70-110) mg/dL POC Glucose (mg/dL) 253 H (75-99) mg/dL Calcium (8.7-10.3) mg/dL AST (13-35) U/L ALT (8-44) U/L Alkaline Phosphatase (41-126) U/L Lactate Dehydrogenase (120-246) U/L Total Protein (6.2-8.2) g/dL Albumin (3.80-4.90) g/dL Albumin/Globulin Ratio (1.60-3.17) g/dL Assessment and Plan Plan: Assessment: #1. Acute hypoxemic respiratory failure secondary to COVID 19 pneumonia. On 05/19/2021 patient hypoxemia is worsening, and patient is currently on 15 L per high flow nasal cannula in addition to nonrebreather mask with pulse ox of 91-96%, she will be given 2 units of convalescent plasma if available, and her steroids have been increased to 60 mg every 6 hours. Chest x-ray shows worsening airspace disease 07/30/2020 patient is down to 7 L of oxygen a pulse ox of 91-94%, inflammatory markers are improving, overall patient is doing better On 07/31/2020 FiO2 was dropped down to 4-1/2 L/m, and pulse ox remained at 91- 93% #2. History of diabetes mellitus. #3. History of atrial fibrillation. #4. History of congestive heart failure. #5. History of osteoarthritis. #6. History of chronic back pain. #7. Status post lap band surgery for obesity. #8. History of deafness. Plan: Continue weaning FiO2, currently down to 4-1/2 L, patient is maintaining O2 sat between 91-93%, no worsening dyspnea, vital signs are stable, no fever or chills, we will stop the IV Solu-Medrol was started oral prednisone 30 mg daily, continue the supplements, prophylactic dose Lovenox, increase activity as tolerated, today's chest x-ray has been reviewed. Clinically patient is improving, inflammatory markers are improving, from pulmonary perspective she can be considered for discharge, preferably to [facility]CF for rehabilitation. We will defer to the primary care service on the decision, physical therapy to evaluate the patient. I performed a history & physical examination of the patient and discussed their management with my nurse practitioner, Corrina Paz. I reviewed the nurse practitioner's note and agree with the documented findings and plan of care. Lung sounds are positive for diminished breath sounds. The findings and the impression was discussed with the patient. I attest to the documentation by the nurse practitioner. Time with Patient: Less than 30
--- NOTE | 2020-07-31 16:06 | P.PN ---
Subjective Progress Note Date: 07/31/20 74-year-old morbidly obese female one of my office patient with past medical history of A. fib with RVR, history of acute gastrointestinal bleed with anemia, history of type 2 diabetes, history of obstructive sleep apnea, mild reactive airway/COPD and mild diastolic congestive heart failure who has been seen in the office the last week for acute Covid, patient was diagnosed on the ended up going for monoclonal anti-body infusion on the . Patient called office with worsening symptoms was seen in virtual visit and was recommended to go to the hospital to be admitted. Patient has been having worsening dyspnea and shortness of breath along with severe hypoxia worsening persistent cough prod uctive of phlegm along with mild twinges of blood. Patient was seen at the emergency department her pulse ox was in the 80 percentile with a few breathing treatment along with 3 L of O2 her pulse ox was increased to the low 90. Patient chest x-ray showed severe interstitial pneumonitis. Her d-dimer was elevated and ended up going for CTA showed extensive ground glass pulmonary interstitial edema could be related to RDS no pleural effusion found at the time. Patient was started on steroids along with updraft treatment O2 will consult pulmonary admit patient to the hospital. 2/2: The patient states that she is feeling much better today. She states that she did not sleep well last night. She is found sitting up in recliner and appears to be comfortable and in no acute distress. She has been afebrile, heart rate 72, blood pressure 160/83, pulse ox 92-98% on 5 L nasal cannula. Consult in place from pulmonary medicine. Blood sugars are running in the 200s. WBC 8, hemoglobin 10.1. Repeat lactic acid 1.7. IV fluids will be discontinued. Patient is on her home dose of Bumex. 2/3: Patient has been afebrile, heart rate 79, blood pressure 162/69, pulse ox 93% on 10 L nasal cannula. Patient complains of shortness of breath and feeling cold. She continues to cough. WBC is 18.5, hemoglobin 10.4, electrolytes normal. Creatinine 0.9. Total bilirubin 0.9, AST 88, ALT 44, alkaline phosphatase 143, LDH 943, C reactive protein 6.6. Overall, inflammatory markers are improving. Patient has been seen by pulmonary medicine and is outside of the window for Remdesivir treatment. Colchicine was added 07/19:tates that she was unable to sleep all night. She was on a nonrebreather and she felt she had a panic attack. She states that she is normally claustrophobic. She is currently seen on 15 L with pulse ox of 91%. She appears to be comfortable at rest. She is complaining of dark brown sputum production. She is also having mild nosebleed with dried blood only. Blood sugars are running between 257-300. D-dimer 8.72. LDH and CRP are pending. Patient has been afebrile, heart rate 82, blood pressure 144/51. She will probably not be ready for discharge until Thursday. 07/20: Patient has developed increasing shortness of breath overnight. She is now requiring high flow nasal cannula and nonrebreather with pulse ox of 91-95%. She has been afebrile, heart rate 77, blood pressure 178/79. Blood sugars are running between 132 and 261. Convalescent plasma has been ordered by pulmonary medicine today. Steroids have been changed to Solu-Medrol 60 mg IV every 6 melly rs. Lovenox increased to 70 mg subcu twice daily. Antibiotics in the form of Augmentin. 07/21: Patient states that she is feeling better compared to yesterday. She continues to be on 15 L high flow not nasal cannula and nonrebreather. We'll continue to attempt to wean. Receiving Bumex 2 mg IV. Continues to have lower extremity swelling bilaterally. Patient received [address] asma. She was complaining of dryness to bilateral nares. Flonase added. Patient remains afebrile, pulse rate 56, blood pressure 167/73, pulse ox 94% on nonrebreather and high flow oxygen. Discussed with patient's CODE STATUS. Patient states that she does not want to be intubated or have CPR performed. We will change her CODE STATUS to no code. 07/22: Patient is found sitting up in chair continue to utilize 15 L of high flow oxygen be significantly cannula nonrebreather pulse oxing 98%. Patient states that she is feeling better able to breathe easier. She has been having diarrhea for the past few days 3-4 episodes yesterday and only one today. Patient denies any abdominal discomfort or blood in stool. She is currently on Augmentin. We will do stool cultures including C. diff. 07/23: Patient remains on high flow nasal cannula 15 L with nonrebreather at her bedside. She is pulse oxing 91 and 94%. She's been afebrile, heart rate in the 70s, blood pressure 123/74. Blood sugars have been between 193 and 339. Anticipate need for oxygen at home. 07/24: Patient is on oxygen at 15 L high flow nasal cannula with pulse ox of 95%. She has been afebrile, heart rate 74, blood pressure 135/75. WBC 9.8, hemoglobin 10.3, platelet count 95. Sodium 136, potassium 3. former be replaced . BUN 35 and creatinine 1. Blood sugars running in the 200s. AST 37, ALT 48. Anticipate that the patient will require home oxygen at the time of discharge. 07/25: Pulse ox is 93% on 15 L high flow nasal cannula and partial rebreather. She's been afebrile, heart rate 89, blood pressure 127/74. Blood sugars running between 128 and 262. Repeat chest x-ray reveals stable findings. Correlate for pneumonia. Patient has been maintained on Augmentin, colchicine, Lovenox, IV Solu-Medrol and supplements. We'll order one additional dose of Bumex this afternoon. 07/26: Patient continues to have cough with hemoptysis, she has shortness of breath with minimal activity. Pulse ox is 91-95% on 15 L high flow nasal cannula. We will add in Tessalon pearls. She continues to have thrush for whic h she is on Diflucan. Bumex increased to 2 mg IV push twice daily. She has been afebrile, heart rate 77, blood pressure 143/68. Repeat blood work reveals WBC 9, hemoglobin 11.2, platelet count 87. Sodium 136, potassium 3.7, CO2 34, BUN 44 and creatinine 0.8. Blood sugars are running 186-237. AST at 73, ALT 73. Repeat LDH 732. C-reactive protein less than 5. Patient will continue treatment in the hospital until oxygenation is improved and she is down to 5 or 6 L nasal cannula. 07/27: Patient is pulse oxing 91-95% on 15 L high flow nasal cannula. She has been afebrile, heart rate 80, blood pressure 139/81. Blood sugars are running between 163 and 246. Patient is continued on IV Solu-Medrol, supplements, Lovenox. 07/28: Patient has been diuresing very well, she has significant weight loss, per patient she has now lost 45 pounds for the past 2 weeks, shortness breath is also much better, pulse oximetry is now are between 90-96%, 11 L nasal cannula, vital signs stable, no fever no chills, no diarrhea, decreas Bumex now to 2 mg daily, she has dyspnea on exertion, minimal conversational dyspnea however this has improved. No lightheadedness no falls 07/29 patient feels not somewhat worse, she seems to slightly be better, has lost 2 more pounds, still diuresing at nighttime, complains of being tired or sleepy during the day, not sleeping well at night. Appetite is much better, no nausea no respiratory events, still 8 L nasal cannula 91%, still has anasarca mainly in the legs, resolved edema in the upper extremities , start melatonin for sleep hygiene jew, on Zaroxolyn Thursday 2.5, still on Solu-Medrol 60 mg every 6 hours, Bumex at 2 mg IV daily. Potassium at 3.4, being replaced 07/30: Blood sugars are in the low 200s, Levemir will be increased to 50 units daily which will start tomorrow. She is currently on Solu-Medrol 60 mg IV every 6 hours. Patient has been afebrile, heart rate 75, blood pressure 108/56. Pulse ox is 91-94% on 7 L high flow nasal cannula which is an improvement over the weekend. Patient does desaturate with exertion. She has been continued onIV Bumex 2 mg daily, in addition to Zaroxolyn 2.5 mg on Thursday and Thursday. She is diuresing, she is in -2.5 L fluid balance over the last 24 hours. Lower extremity edema is improved. Her stool culture was positive for Vianey albicans, and so was her sputum culture. She is on Diflucan. Her last chest x- ray was yesterday showing persistent interstitial infiltrates. Afrin spray added. 07/31 patient examined bedside. Shortness of breath is improved currently on 4- 1/2 L of oxygen saturating well at 93-95%. The patient's breathing is better. Sinus congestion is better with Afrin spray. Continue Bumex at 2 mg IV daily. Metolazone increased to 2.5 mg daily from Thursday and Thursday. Solu- Medrol switched to prednisone 30 mg by mouth daily. Blood sugar remains to be high Levemir increased to 30 twice a day REVI EW OF SYSTEMS CONSTITUTIONAL: Well-developed with no respiratory distress at rest. Denies fevers. Denies chills. EYES: No icterus sclerae, no conjunctivitis. EARS, NOSE, MOUTH, THROAT, and FACE: Reports nasal congestion. No sore throat, lymphadenopathy, carotid bruits or deformity. RESPIRATORY: Moderate dyspnea and shortness of breath and cough. Dyspnea with exertion. Dyspnea at rest. CARDIOVASCULAR: Positive PND orthopnea . Denies palpitation with no angina. GASTROINTESTINAL: No Abd pain, Nausea or vomiting, no Diarrhea or constipation, No GI Bleed, no distention or masses. GENITOURINARY: Negative for Hematuria or UTI, no kidney stones. INTEGUMENT/BREAST: Negative for any muscular injury with mild osteoarthritis. Chronic edema. HEMATOLOGIC/LYMPHATIC: Negative for bleed or purpura. MUSCULOSKELTAL: Negative for Myalgia or arthralgia. Significant arthralgia and myalgia. NEURLOGICAL: No LOC, Sz or syncope, blurred vision dizziness or abnormality.. BEHAVIORAL/PSYCH: Negative. ENDOCRLavina blood sugars PHYSICAL EXAMINATION General Appearance: Alert, cooperative, morbidly obese in no respiratory distress. Patient is resting comfortably in chair. Neck HEENT: Supple, no lymphadenopathy, no thyroid enlargement, no carotid bruits. Lungs: Decreased breath some bilateral expiratory wheezes. Positive mild accessory muscle usage Chest Wall: Decrease expansion with deep inspiration no tenderness and no deformity was found on exam, no costochondral pain or discomfort. Heart: Regular rate and rhythm, S1, S2 positive systolic murmur with S3. Back: Symmetric, no curvature, ROM normal, no CVA tenderness. Abdomen: Soft, non-tender, bowel sounds active all four quadrants, no masses, no organomegaly. Extremities: 1+ edema and decreased pulses bilaterally. Pulses: 1+ and symmetric. Skin: Skin color, texture, tugor normal, no rashes or lesions. Neurologic: Alert oriented x3 cranial nerves II through XII intact, no motor deficit, no abnormal balance or gait. Objective - Vital Signs Vital signs: Vital Signs Temp 97.8 F 02/16/21 14:00 Pulse 68 07/31/20 14:00 Resp 19 07/31/20 14:00 BP 120/74 07/31/20 14:00 Pulse Ox 91 L 07/31/20 14:00 Intake & Output 07/30/20 07/31/20 07/31/20 18:59 06:59 18:59 Intake Total 600 400 Output Total 600 Balance 0 400 Intake: Oral 600 400 Output: Urine 600 Other: Voiding Method Bedside Commode # Voids 2 1 1 # Bowel Movements 1 1 - Exam PHYSICAL EXAMINATION General Appearance: Alert, cooperative, morbidly obese in no respiratory distress. Patient is resting comfortably in chair. Neck HEENT: Supple, no lymphadenopathy, no thyroid enlargement, no carotid bruits. Lungs: Decreased breath some bilateral expiratory wheezes improved . Positive mild accessory muscle usage Chest Wall: Decrease expansion with deep inspiration no tenderness and no deformity was found on exam, no costochondral pain or discomfort. Heart: Regular rate and rhythm, S1, S2 positive systolic murmur with S3. Back: Symmetric, no curvature, ROM normal, no CVA tenderness. Abdomen: Soft, non-tender, bowel sounds active all four quadrants, no masses, no organomegaly. Extremities: 1+ edema and decreased pulses bilaterally. Pulses: 1+ and symmetric. Skin: Skin color, texture, tugor normal, no rashes or lesions. Neurologic: Alert oriented x3 cranial nerves II through XII intact, no motor deficit, no abnormal balance or gait. - Labs CBC & Chem 7: 07/31/20 05:48 07/31/20 05:48 Labs: Abnormal Lab Results - Last 24 Hours (Table) 07/30/20 07/30/20 07/31/20 Range/Units 17:09 20:16 05:48 WBC 12.57 H (4.50-10.00) X 10*3/uL Hgb 10.8 L (12.0-15.0) g/dL MCV 77.1 L (80.0-97.0) fL MCH 21.7 L (27.0-32.0) pg MCHC 28.2 L (32.0-37.0) g/dL RDW 19.6 H (11.5-14.5) % Immature Gran # 0.17 H (0.00-0.04) X 10*3/uL Neutrophils # 11.76 H (1.80-7.70) X 10*3/uL Lymphocytes # 0.18 L (0.90-5.00) X 10*3/uL Eosinophils # 0 L (0.04-0.35) X 10*3/uL Potassium (3.5-5.5) mmol/L Chloride (96-109) mmol/L Carbon Dioxide (21.6-31.8) mmol/L BUN (9.0-27.0) mg/dL Est GFR (CKD-EPI)AfAm (60.0-200.0) Est GFR (CKD-EPI)NonAf (60.0-200.0) BUN/Creatinine Ratio (12.00-20.00) Ratio Glucose (70-110) mg/dL POC Glucose (mg/dL) 102 H 160 H (75-99) mg/dL Calcium (8.7-10.3) mg/dL AST (13-35) U/L ALT (8-44) U/L Alkaline Phosphatase (41-126) U/L Lactate Dehydrogenase (120-246) U/L Total Protein (6.2-8.2) g/dL Albumin (3.80-4.90) g/dL Albumin/Globulin Ratio (1.60-3.17) g/dL 07/31/20 07/31/20 07/31/20 Range/Units 05:48 07:25 11:42 WBC (4.50-10.00) X 10*3/uL Hgb (12.0-15.0) g/dL MCV (80.0-97.0) fL MCH (27.0-32.0) pg MCHC (32.0-37.0) g/dL RDW (11.5-14.5) % Immature Gran # (0.00-0.04) X 10*3/uL Neutrophils # (1.80-7.70) X 10*3/uL Lymphocytes # (0.90-5.00) X 10*3/uL Eosinophils # (0.04-0.35) X 10*3/uL Potassium 3.3 L (3.5-5.5) mmol/L Chloride 94 L (96-109) mmol/L Carbon Dioxide 33.0 H (21.6-31.8) mmol/L BUN 56.0 H (9.0-27.0) mg/dL Est GFR (CKD-EPI)AfAm 57.7 L (60.0-200.0) Est GFR (CKD-EPI)NonAf 49.8 L (60.0-200.0) BUN/Creatinine Ratio 50.91 H (12.00-20.00) Ratio Glucose 270 H (70-110) mg/dL POC Glucose (mg/dL) 247 H 253 H (75-99) mg/dL Calcium 8.1 L (8.7-10.3) mg/dL AST 60 H (13-35) U/L ALT 133 H (8-44) U/L Alkaline Phosphatase 135 H (41-126) U/L Lactate Dehydrogenase 329 H (120-246) U/L Total Protein 5.5 L (6.2-8.2) g/dL Albumin 2.90 L (3.80-4.90) g/dL Albumin/Globulin Ratio 1.12 L (1.60-3.17) g/dL Assessment and Plan Plan: ASSESSMENT AND PLAN 1 acute hypoxic respiratory failure secondary to acute Covid pneumonitis with worsening symptoms. Consult with pulmonary medicine. Solu-Medrol switched to prednisone 30 mg by mouth daily, convalescent plasma, Augmentin, vitamin C, vitamin D, colchicine, oxygen support, lovenox 40 mg by mouth daily Continue Bumex 2 mg IV daily and zaroxyln increased to 2.5 mg every day from Thursday and Thursday. Continue Vanita Timmons helped with rhinitis 2 acute Covid pneumonitis with worsening symptoms. Continue as in #1. 3 COPD continue albuterol inhaler. 4. Paroxysmal atrial fibrillation, unable to tolerate anticoagulation secondary to acute GI bleed, continue metoprolol 12.5 mg twice daily and flecainide 50 mg twice a day. 5 type 2 diabetes, uncontrolled with hyperglycemia secondary to steroids. Continue Accu-Chek with sliding scales coverage continue Lantus increased to 50 units daily and still on Januvia. And scheduled NovoLog 3u increased to 6 units with meals 6 chronic diastolic heart failure. Continue Bumex 1 mg twice brandon IV y, Lopressor. 7 peptic ulcer disease and GI prophylaxis: Continue patient on pantoprazole 40 mg daily. 8 chronic anemia: Remain on iron supplement and multivitamins no need for transfusion. 9 mild hyponatremia: Most likely SIADH from pneumonia will continue mild gentle hydration repeat chemistry in the next 24 hours. 10 DVT prophylaxis: Patient will be on Lovenox subcutaneous daily. 11 GI prophylaxis: Will be on pantoprazole. 12. Diarrhea. Stool cultures. C. diff negative. Diarrhea most likely secondary to Augmentin. CODE STATUS: No Code
[2020-07-31 16:46] LABS: Glucose,Whole Blood 269 mg/dL (75-99)
[2020-07-31] MEDS: MELATONIN 3 MG TABLET PO SCH (21:00)
[2020-07-31 21:01] LABS: Glucose,Whole Blood 145 mg/dL (75-99)
[2020-07-31] MEDS: LINAGLIPTIN 5 MG TABLET PO SCH (21:01)
[2020-07-31] MEDS: INSULIN DETEMIR (LEVEMIR) 100 UNIT/ML SYR SQ SCH (21:01)
[2020-08-01 06:59] LABS: Glucose,Whole Blood 63 mg/dL (75-99)
[2020-08-01 07:25] LABS: Glucose,Whole Blood 92 mg/dL (75-99)
[2020-08-01] MEDS: INSULIN ASPART (NovoLOG) 100 UNIT/ML VIAL SQ SCH ×5 (07:47→21:21)
[2020-08-01] MEDS: ZINC SULFATE 220 MG CAP PO SCH (07:48)
[2020-08-01] MEDS: POTASSIUM CHLORIDE ER 20 MEQ TAB.ER PO SCH ×4 (07:48→12:59)
[2020-08-01] MEDS: ASCORBIC ACID 500 MG TAB PO SCH (07:48)
[2020-08-01] MEDS: FLUCONAZOLE 100 MG TAB PO SCH (07:48)
[2020-08-01] MEDS: METOPROLOL TARTRATE 12.5 MG TAB PO SCH (07:48)
[2020-08-01] MEDS: BENZONATATE 100 MG CAP PO SCH ×3 (07:49→21:29)
[2020-08-01] MEDS: CHOLECALCIFEROL 25 MCG (1000 IU) TABLET PO SCH ×2 (07:49→07:57)
[2020-08-01] MEDS: PANTOPRAZOLE 40 MG TABLET PO SCH ×2 (07:50→21:29)
[2020-08-01] MEDS: predniSONE 10 MG TAB PO SCH (07:50)
[2020-08-01] MEDS: BUMETANIDE 0.25 MG/ML 4 ML VIAL IVP SCH (08:00)
[2020-08-01] MEDS: FLECAINIDE 50 MG TAB PO SCH ×2 (08:01→21:29)
[2020-08-01] MEDS: ENOXAPARIN 40 MG/0.4 ML SYRINGE SQ SCH (08:01)
[2020-08-01] MEDS: INSULIN DETEMIR (LEVEMIR) 100 UNIT/ML SYR SQ SCH (08:01)
[2020-08-01] MEDS: COLCHICINE 0.6 MG EACH PO SCH (08:01)
[2020-08-01] MEDS: OXYMETAZOLINE 0.05% NASL SPRAY 1 SPRAY BOTTLE NASAL SCH ×2 (08:03→21:29)
[2020-08-01] MEDS ORDERED: metOLazone 2.5 MG TAB PO SCH (09:00)
[2020-08-01] MEDS: CHOLESTYRAMINE (WITH SUGAR) 4 GM PACKET PO SCH ×2 (09:04→17:36)
[2020-08-01 09:19] LABS: Basophils # (A) 0.02 X 10*3/uL (0.00-0.10); Basophils % (A) 0.1 %; Eosinophils # (A) 0 X 10*3/uL (0.04-0.35); Eosinophils % (A) 0 %; HCT 37.5 % (37.2-46.3); HGB 11.1 g/dL (12.0-15.0); Lymphocytes # (A) 0.38 X 10*3/uL (0.90-5.00); Lymphocytes % (A) 2.1 %; MCH 22.4 pg (27.0-32.0); MCHC 29.6 g/dL (32.0-37.0); MCV 75.8 fL (80.0-97.0); Mean Platelet Volume 10.5 fL (9.5-12.2); Monocytes # (A) 0.77 X 10*3/uL (0.20-1.00); Monocytes % (A) 4.2 %; Neutrophils # (A) 16.69 X 10*3/uL (1.80-7.70); Neutrophils % (A) 90.4 %; Platelet Count 217 X 10*3/uL (140-440); RBC 4.95 X 10*6/uL (4.10-5.20); RDW 19.8 % (11.5-14.5); WBC 18.45 X 10*3/uL (4.50-10.00)
[2020-08-01 10:26] LABS: ALT 130 U/L (8-44); AST 62 U/L (13-35); African American GFR (CKD) 57.7 (60.0-200.0); Albumin/Globulin Ratio 1.07 (1.60-3.17); Alkaline Phosphatase 139 U/L (41-126); BUN/Creat Ratio 51.82 Ratio (12.00-20.00); C Reactive Protein <0.4 mg/dL (0.0-0.8); Calcium 8.3 mg/dL (8.7-10.3); Carbon Dioxide 34.1 mmol/L (21.6-31.8); Chloride 93 mmol/L (96-109); Globulin 2.7 g/dL (1.6-3.3); Glucose 46 mg/dL (70-110); LDH 395 U/L (120-246); Non-African American GFR(CKD) 49.8 (60.0-200.0); Potassium 2.8 mmol/L (3.5-5.5); Sodium 136 mmol/L (135-145); Total Bilirubin 1.3 mg/dL (0.3-1.2); Total Protein 5.6 g/dL (6.2-8.2)
[2020-08-01] MEDS ORDERED: Potassium Replacement Protocol 1 EACH MISC MISCELLANE PRN (10:38)
[2020-08-01] MEDS: ACETAMINOPHEN TAB 325 MG TAB PO PRN (11:17)
[2020-08-01] MEDS: MAG HYDROX/AL HYDROX/SIMETH 30 ML, LIDOCAINE VISCOUS 30 ML, NYSTATIN 100,000 UNIT/ML SU... PO SCH ×9 (11:18→21:30)
[2020-08-01] MEDS ORDERED: RX INFO: IV CONTRAST WAS GIVEN 1 EACH MISC MISCELLANE PRN (11:28)
[2020-08-01 11:42] LABS: Glucose,Whole Blood 114 mg/dL (75-99)
[2020-08-01] MEDS ORDERED: SODIUM CHLORIDE 0.9% 1,000 ML IV ONE (11:57)
--- NOTE | 2020-08-01 13:20 | P.PN ---
Subjective Progress Note Date: 08/01/20 74-year-old female who was seen in the emergency department on 07/16/2020, at 1535. The patient presented with complaints of shortness of breath. The patient has a history of atrial fibrillation, obesity, congestive heart failure, and diabetes. She apparently was diagnosed with COVID 19 infection on July 09. Prior to being tested positive, the patient had 2 weeks of what she describes as a head cold. She started taking vitamins, and Decadron. More recently, she's been getting progressively worse as it relates to her shortness of breath, which now occurs on any activity. She does have some nausea, but denies any vomiting or diarrhea. She denies any chest pain. She denies any genitourinary complaints and lower extremity edema. Apparently her family doctor recommended that she come into the emergency room to be evaluated. A chest x-ray reveals some mild pulmonary interstitial pneumonia, and the CT angiogram revealed no evidence of any central or large pulmonary emboli, but did show extensive groundglass pulmonary interstitial infiltrates, consistent with her diagnosis of COVID19 pneumonia. Unfortunately, she is beyond the window for remdesivir. Currently, she is on 5 L nasal cannula, and her saturations are 99%. Her respiratory rate is 20, and her temperature is 97.6F. Blood pressure is good and heart rate is 71 bpm. Her current white count is 8.09, hemoglobin 10.1, hematocrit 34.7, and platelet count 137,000. Sodium is 135, potassium 4.9, chlorides 102, CO2 25, anion gap 8, BUN 17, and creatinine 0.8. D-dimer is 1.21, ferritin is 624, LDH is 1468, and C-reactive protein is 139. N-terminal proBNP was 1970. Pro-calcitonin level was 0.20. On 07/18/2020 patient seen in follow-up on medical floor, she is currently on 11 L of oxygen, she is awake and alert, she said nobody into the bed, apparently earlier she felt a little dizzy, she feels fatigued, be in no acute distress. Today's labs have been reviewed, showing white blood cell count of 18.5, hemoglobin is 10.4, his inflammatory markers are trending down, LDH is down to 943, CRP is down to 6.6, pro calcitonin level was 0.20. Continues on prophylactic dose of Lovenox, IV Decadron 6 mg daily, colchicine, and zinc On 07/19/2020 patient seen in follow-up on medical floor. She is currently up to 2 L of oxygen, her pulse ox is 91-94%, she states she feels better but she is requiring more oxygen, she states she is coughing up some phlegm. Today's chest x-ray has been reviewed showing central vascularity and interstitial increased, bilateral groundglass opacity within the lungs. And there is persistent elevation of the right hemidiaphragm. Patient seems to have increased edema in her lower extremities, she is currently on a daily dose of oral Bumex 1 mg daily, her lung sounds positive for scattered rhonchi. We will add empiric antibiotics, will afternoon dose of oral Bumex and obtain follow-up chest x-ray tomorrow. Physically she states she is feeling better, she is able to clear some phlegm. On 07/20/2020 patient seen in follow-up on medical floor, her oxygen requirements are continuously increasing, currently up to 15 L of oxygen per high flow nasal cannula and partial nonrebreather and her pulse ox is between 91-95%, afebrile. She is more dyspneic today, her lower extremities remain swollen, we did give the patient a dose of diuretics yesterday, however her neck fluid balance is very difficult to estimate. Her inflammatory markers have been reviewed, and pH is down to 780, and CRP is at 9.4, pro calcitonin level has decreased and is down to 0.12, however d-dimer has trended down and is up to 8.72, and we will adjust the dose of Lovenox to 0.5 mg/kg of body weight twice daily. Based Effexor has been reviewed showing worsening airspace disease, pneumonia and pulmonary edema. On 07/30/2020 patient seen in follow-up on medical floor, she is awake and alert, in no acute distress, currently sitting up in a chair, her pulse ox on 7 L of oxygen is 91%, patient does desaturate with exertion. She is breathing comfortably, no cough, no complaints of chest discomfort, she's been afebrile, hemodynamically she's been stable. Her inflammatory markers are improving, her last d-dimer on 07/26/2020 was 2.81. She continues on IV steroids 60 mg every 6 hours, she is on diuretics, IV Bumex 2 mg daily, in addition to Zaroxolyn 2.5 mg on Thursday and Thursday. She is diuresing, she is in -2.5 L fluid balance over the last 24 hours. Her stool culture was positive for Vianey albicans, and so was her sputum culture. She is on Diflucan. Her last chest x-ray was yesterday showing persistent interstitial infiltrates. No new labs today, no new chest x- ray, clinically patient has been stable, no complaints of nausea, vomiting or diarrhea. Lower extremity edema is improving. On 07/31/2020 patient seen in follow-up. Patient is on 7 L of oxygen, we dropped the FiO2 down to 4-1/2 L, and her pulse ox is maintained at 93-94%, patient still does have exertional dyspnea, but overall she is improving, she is awake and alert, oriented 3, no altered mentation, increased questions appropriately, she's had no fever or chills, vital signs have been stable, no worsening dyspnea, no cough or chest pain. Follow-up chest x-ray today shows bilateral areas of increased interstitial markings and patchy infiltrates with small effusions stable in appearance. Patient has been on high-dose IV steroids with Solu-Medrol 60 mg every 6 hours, she is on prophylactic dose of Lovenox 40 mg daily, she remains on IV Bumex at 2 mg daily, she is on bronchodilators, she is on oral Diflucan. She's had no acute events overnight. Today's labs have been reviewed, inflammatory markers are improving. No complaints of nausea vomiting or diarrhea. Patient is tolerating oral intake. On 08/01/2020 patient seen in follow-up. Patient is more dyspneic today, she is in the 7-8 L of oxygen per simple nasal cannula, in her pulse ox is only around 80-82%. She was placed on partial rebreather mask. Lung sounds reveal some minimal crackles, she has no cough or chest pain, no altered mentation, no fever, blood pressure has been stable, yesterday we discontinued her IV Solu-Me drol, and placed her on oral prednisone 30 mg. Continues on prophylactic dose Lovenox, she has been on IV Bumex 2 mg daily, her neck fluid balance is difficult to estimate, however clinically she appears to be dry. Continues on colchicine, she is on vitamins including vitamin C, vitamin D, melatonin and zinc supplement. She is on oral Diflucan. In addition to Bumex she is also on Zaroxolyn 2.5 mg daily. There is a concern about possibility of pulmonary embolism related to patient's history of COVID19, and for that reason CTA chest has been ordered however the radiologist suggested pre-hydration and we'll stop the patient's IV Bumex and we'll give the patient a liter bolus Objective - Vital Signs Vital signs: Vital Signs Temp 97.6 F 08/01/20 10:00 Pulse 65 08/01/20 10:00 Resp 20 08/01/20 10:00 BP 118/72 08/01/20 10:00 Pulse Ox 92 L 08/01/20 10:00 Intake & Output 07/31/20 08/01/20 08/01/20 18:59 06:59 18:59 Output Total 250 Balance -250 Weight 129 kg Output: Urine 250 Other: Voiding Method External Catheter External Catheter # Voids 1 # Bowel Movements 1 - Exam GENERAL EXAM: Alert, very pleasant, 74-year-old white female on partial nonrebreather mask, with pulse ox between 82-83% breathing is mildly to moderately labored HEAD: Normocephalic/atraumatic. EYES: Normal reaction of pupils, equal size. Conjunctiva pink, sclera white. NOSE: Clear with pink turbinates. THROAT: No erythema or exudates. NECK: No masses, no JVD, no thyroid enlargement, no adenopathy. CHEST: No chest wall deformity. Symmetrical expansion. LUNGS: Equal air entry with no crackles, wheeze, rhonchi or dullness. CVS: Regular rate and rhythm, normal S1 and S2, no gallops, no murmurs, no rubs ABDOMEN: Soft, nontender. No hepatosplenomegaly, normal bowel sounds, no guarding or rigidity. EXTREMITIES: No clubbing, no edema, no cyanosis, 2+ pulses and upper and lower extremities. MUSCULOSKELETAL: Muscle strength and tone normal. SPINE: No scoliosis or deformity SKIN: No rashes CENTRAL NERVOUS SYSTEM: Alert and oriented -3. No focal deficits, tone is normal in all 4 extremities. PSYCHIATRIC: Alert and oriented -3. Appropriate affect. Intact judgment and insight. - Labs CBC & Chem 7: 08/01/20 05:29 08/01/20 05:29 Labs: Abnormal Lab Results - Last 24 Hours (Table) 07/31/20 07/31/20 08/01/20 Range/Units 16:44 20:54 05:29 WBC 18.45 H (4.50-10.00) X 10*3/uL Hgb 11.1 L (12.0-15.0) g/dL MCV 75.8 L (80.0-97.0) fL MCH 22.4 L (27.0-32.0) pg MCHC 29.6 L (32.0-37.0) g/dL RDW 19.8 H (11.5-14.5) % Immature Gran # 0.59 H (0.00-0.04) X 10*3/uL Neutrophils # 16.69 H (1.80-7.70) X 10*3/uL Lymphocytes # 0.38 L (0.90-5.00) X 10*3/uL Eosinophils # 0 L (0.04-0.35) X 10*3/uL Potassium (3.5-5.5) mmol/L Chloride (96-109) mmol/L Carbon Dioxide (21.6-31.8) mmol/L BUN (9.0-27.0) mg/dL Est GFR (CKD-EPI)AfAm (60.0-200.0) Est GFR (CKD-EPI)NonAf (60.0-200.0) BUN/Creatinine Ratio (12.00-20.00) Ratio Glucose (70-110) mg/dL POC Glucose (mg/dL) 269 H 145 H (75-99) mg/dL Calcium (8.7-10.3) mg/dL Total Bilirubin (0.3-1.2) mg/dL AST (13-35) U/L ALT (8-44) U/L Alkaline Phosphatase (41-126) U/L Lactate Dehydrogenase (120-246) U/L Total Protein (6.2-8.2) g/dL Albumin (3.80-4.90) g/dL Albumin/Globulin Ratio (1.60-3.17) g/dL 08/01/20 08/01/20 08/01/20 Range/Units 05:29 06:58 11:41 WBC (4.50-10.00) X 10*3/uL Hgb (12.0-15.0) g/dL MCV (80.0-97.0) fL MCH (27.0-32.0) pg MCHC (32.0-37.0) g/dL RDW (11.5-14.5) % Immature Gran # (0.00-0.04) X 10*3/uL Neutrophils # (1.80-7.70) X 10*3/uL Lymphocytes # (0.90-5.00) X 10*3/uL Eosinophils # (0.04-0.35) X 10*3/uL Potassium 2.8 L (3.5-5.5) mmol/L Chloride 93 L (96-109) mmol/L Carbon Dioxide 34.1 H (21.6-31.8) mmol/L BUN 57.0 H (9.0-27.0) mg/dL Est GFR (CKD-EPI)AfAm 57.7 L (60.0-200.0) Est GFR (CKD-EPI)NonAf 49.8 L (60.0-200.0) BUN/Creatinine Ratio 51.82 H (12.00-20.00) Ratio Glucose 46 L* (70-110) mg/dL POC Glucose (mg/dL) 63 L 114 H (75-99) mg/dL Calcium 8.3 L (8.7-10.3) mg/dL Total Bilirubin 1.3 H (0.3-1.2) mg/dL AST 62 H (13-35) U/L ALT 130 H (8-44) U/L Alkaline Phosphatase 139 H (41-126) U/L Lactate Dehydrogenase 395 H (120-246) U/L Total Protein 5.6 L (6.2-8.2) g/dL Albumin 2.90 L (3.80-4.90) g/dL Albumin/Globulin Ratio 1.07 L (1.60-3.17) g/dL Assessment and Plan Plan: Assessment: #1. Acute hypoxemic respiratory failure secondary to COVID 19 pneumonia. On 05/19/2021 patient hypoxemia is worsening, and patient is currently on 15 L per high flow nasal cannula in addition to nonrebreather mask with pulse ox of 91-96%, she will be given 2 units of convalescent plasma if available, and her steroids have been increased to 60 mg every 6 hours. Chest x-ray shows worsening airspace disease 07/30/2020 patient is down to 7 L of oxygen a pulse ox of 91-94%, inflammatory markers are improving, overall patient is doing better On 07/31/2020 FiO2 was dropped down to 4-1/2 L/m, and pulse ox remained at 91- 93% On 08/01/2020 patient is having worsening shortness of breath, with worsening hypoxemia, need to rule out possibility of pulmonary embolism, CT chest to be completed this afternoon after rehydration #2. History of diabetes mellitus. #3. History of atrial fibrillation. #4. History of congestive heart failure. #5. History of osteoarthritis. #6. History of chronic back pain. #7. Status post lap band surgery for obesity. #8. History of deafness. Plan: Patient was placed on partial nonrebreather mask, continue titrating FiO2 to keep O2 sat at 90% or better. We'll increase the oral prednisone dose to 40 mg daily, we'll switch the Bumex to oral hormone dose Bumex starting tomorrow, we'll stop Zaroxolyn, we'll rehydrate the patient for a CT chest this afternoon to rule out possibility of pulmonary embolism, for now continue prophylactic dose of Lovenox, obtain follow-up inflammatory markers, patient's CODE STATUS is DO NOT RESUSCITATE, will continue to closely follow and will continue supportive treatment. I performed a history & physical examination of the patient and discussed their management with my nurse practitioner, Corrina Paz. I reviewed the nurse practitioner's note and agree with the documented findings and plan of care. Lung sounds are positive for diminished breath sounds. The findings and the impression was discussed with the patient. I attest to the documentation by the nurse practitioner. Time with Patient: Less than 30
--- NOTE | 2020-08-01 13:53 | CT ---
CT CHEST FOR PULMONARY EMBOLISM. EXAMINATION TYPE: CT angio chest DATE OF EXAM: 08/01/2020 INDICATION: shortness of breath. CT DLP: 849.6 mGycm, Automated exposure control for dose reduction was used. CONTRAST: Patient injected with 75 mL of Isovue 370. COMPARISON: None TECHNIQUE: CT of the chest is performed on a spiral scan at 2 mm thick sections. Study is performed with intravenous contrast timed for evaluation for pulmonary embolism. This will limit additional po rtions of the evaluation. 3-D MIP images reconstructed by the technologist are reviewed on the compu ter in the coronal and sagittal planes. FINDINGS: No persistent filling defects are evident to suggest an acute pulmonary embolism. No mediastinal or hilar adenopathy enlarged by CT criteria is evident. The ascending aorta diameter at the level of the main pulmonary artery is 3.7 cm. The main pulmonary artery diameter at the bifur cation is 3.4 cm. There are scattered groundglass opacities through the lung muñiz. This is nonspecific. Findings coul d be related to pulmonary edema or atypical pneumonia. There are some linear opacities at the lung ba ses suggesting some developing pulmonary fibrosis. Limited CT section through the upper abdomen. There may be some mild right hydronephrosis. Lap band i s present. IMPRESSIONS: 1. No acute pulmonary embolism. 2. Scattered groundglass opacities and increased lung markings, consider atypical pneumonia or pulmon genny edema.
--- NOTE | 2020-08-01 14:06 | P.PN ---
Subjective Progress Note Date: 08/01/20 74-year-old morbidly obese female one of my office patient with past medical history of A. fib with RVR, history of acute gastrointestinal bleed with anemia, history of type 2 diabetes, history of obstructive sleep apnea, mild reactive airway/COPD and mild diastolic congestive heart failure who has been seen in the office the last week for acute Covid, patient was diagnosed on the ended up going for monoclonal anti-body infusion on the . Patient called office with worsening symptoms was seen in virtual visit and was recommended to go to the hospital to be admitted. Patient has been having worsening dyspnea and shortness of breath along with severe hypoxia worsening persistent cough prod uctive of phlegm along with mild twinges of blood. Patient was seen at the emergency department her pulse ox was in the 80 percentile with a few breathing treatment along with 3 L of O2 her pulse ox was increased to the low 90. Patient chest x-ray showed severe interstitial pneumonitis. Her d-dimer was elevated and ended up going for CTA showed extensive ground glass pulmonary interstitial edema could be related to RDS no pleural effusion found at the time. Patient was started on steroids along with updraft treatment O2 will consult pulmonary admit patient to the hospital. 2/2: The patient states that she is feeling much better today. She states that she did not sleep well last night. She is found sitting up in recliner and appears to be comfortable and in no acute distress. She has been afebrile, heart rate 72, blood pressure 160/83, pulse ox 92-98% on 5 L nasal cannula. Consult in place from pulmonary medicine. Blood sugars are running in the 200s. WBC 8, hemoglobin 10.1. Repeat lactic acid 1.7. IV fluids will be discontinued. Patient is on her home dose of Bumex. 2/3: Patient has been afebrile, heart rate 79, blood pressure 162/69, pulse ox 93% on 10 L nasal cannula. Patient complains of shortness of breath and feeling cold. She continues to cough. WBC is 18.5, hemoglobin 10.4, electrolytes normal. Creatinine 0.9. Total bilirubin 0.9, AST 88, ALT 44, alkaline phosphatase 143, LDH 943, C reactive protein 6.6. Overall, inflammatory markers are improving. Patient has been seen by pulmonary medicine and is outside of the window for Remdesivir treatment. Colchicine was added 07/19:tates that she was unable to sleep all night. She was on a nonrebreather and she felt she had a panic attack. She states that she is normally claustrophobic. She is currently seen on 15 L with pulse ox of 91%. She appears to be comfortable at rest. She is complaining of dark brown sputum production. She is also having mild nosebleed with dried blood only. Blood sugars are running between 257-300. D-dimer 8.72. LDH and CRP are pending. Patient has been afebrile, heart rate 82, blood pressure 144/51. She will probably not be ready for discharge until Thursday. 07/20: Patient has developed increasing shortness of breath overnight. She is now requiring high flow nasal cannula and nonrebreather with pulse ox of 91-95%. She has been afebrile, heart rate 77, blood pressure 178/79. Blood sugars are running between 132 and 261. Convalescent plasma has been ordered by pulmonary medicine today. Steroids have been changed to Solu-Medrol 60 mg IV every 6 melly rs. Lovenox increased to 70 mg subcu twice daily. Antibiotics in the form of Augmentin. 07/21: Patient states that she is feeling better compared to yesterday. She continues to be on 15 L high flow not nasal cannula and nonrebreather. We'll continue to attempt to wean. Receiving Bumex 2 mg IV. Continues to have lower extremity swelling bilaterally. Patient received [address] asma. She was complaining of dryness to bilateral nares. Flonase added. Patient remains afebrile, pulse rate 56, blood pressure 167/73, pulse ox 94% on nonrebreather and high flow oxygen. Discussed with patient's CODE STATUS. Patient states that she does not want to be intubated or have CPR performed. We will change her CODE STATUS to no code. 07/22: Patient is found sitting up in chair continue to utilize 15 L of high flow oxygen be significantly cannula nonrebreather pulse oxing 98%. Patient states that she is feeling better able to breathe easier. She has been having diarrhea for the past few days 3-4 episodes yesterday and only one today. Patient denies any abdominal discomfort or blood in stool. She is currently on Augmentin. We will do stool cultures including C. diff. 07/23: Patient remains on high flow nasal cannula 15 L with nonrebreather at her bedside. She is pulse oxing 91 and 94%. She's been afebrile, heart rate in the 70s, blood pressure 123/74. Blood sugars have been between 193 and 339. Anticipate need for oxygen at home. 07/24: Patient is on oxygen at 15 L high flow nasal cannula with pulse ox of 95%. She has been afebrile, heart rate 74, blood pressure 135/75. WBC 9.8, hemoglobin 10.3, platelet count 95. Sodium 136, potassium 3. former be replaced . BUN 35 and creatinine 1. Blood sugars running in the 200s. AST 37, ALT 48. Anticipate that the patient will require home oxygen at the time of discharge. 07/25: Pulse ox is 93% on 15 L high flow nasal cannula and partial rebreather. She's been afebrile, heart rate 89, blood pressure 127/74. Blood sugars running between 128 and 262. Repeat chest x-ray reveals stable findings. Correlate for pneumonia. Patient has been maintained on Augmentin, colchicine, Lovenox, IV Solu-Medrol and supplements. We'll order one additional dose of Bumex this afternoon. 07/26: Patient continues to have cough with hemoptysis, she has shortness of breath with minimal activity. Pulse ox is 91-95% on 15 L high flow nasal cannula. We will add in Tessalon pearls. She continues to have thrush for whic h she is on Diflucan. Bumex increased to 2 mg IV push twice daily. She has been afebrile, heart rate 77, blood pressure 143/68. Repeat blood work reveals WBC 9, hemoglobin 11.2, platelet count 87. Sodium 136, potassium 3.7, CO2 34, BUN 44 and creatinine 0.8. Blood sugars are running 186-237. AST at 73, ALT 73. Repeat LDH 732. C-reactive protein less than 5. Patient will continue treatment in the hospital until oxygenation is improved and she is down to 5 or 6 L nasal cannula. 07/27: Patient is pulse oxing 91-95% on 15 L high flow nasal cannula. She has been afebrile, heart rate 80, blood pressure 139/81. Blood sugars are running between 163 and 246. Patient is continued on IV Solu-Medrol, supplements, Lovenox. 07/28: Patient has been diuresing very well, she has significant weight loss, per patient she has now lost 45 pounds for the past 2 weeks, shortness breath is also much better, pulse oximetry is now are between 90-96%, 11 L nasal cannula, vital signs stable, no fever no chills, no diarrhea, decreas Bumex now to 2 mg daily, she has dyspnea on exertion, minimal conversational dyspnea however this has improved. No lightheadedness no falls 07/29 patient feels not somewhat worse, she seems to slightly be better, has lost 2 more pounds, still diuresing at nighttime, complains of being tired or sleepy during the day, not sleeping well at night. Appetite is much better, no nausea no respiratory events, still 8 L nasal cannula 91%, still has anasarca mainly in the legs, resolved edema in the upper extremities , start melatonin for sleep hygiene christianity, on Zaroxolyn Thursday 2.5, still on Solu-Medrol 60 mg every 6 hours, Bumex at 2 mg IV daily. Potassium at 3.4, being replaced 07/30: Blood sugars are in the low 200s, Levemir will be increased to 50 units daily which will start tomorrow. She is currently on Solu-Medrol 60 mg IV every 6 hours. Patient has been afebrile, heart rate 75, blood pressure 108/56. Pulse ox is 91-94% on 7 L high flow nasal cannula which is an improvement over the weekend. Patient does desaturate with exertion. She has been continued onIV Bumex 2 mg daily, in addition to Zaroxolyn 2.5 mg on Thursday and Thursday. She is diuresing, she is in -2.5 L fluid balance over the last 24 hours. Lower extremity edema is improved. Her stool culture was positive for Vianey albicans, and so was her sputum culture. She is on Diflucan. Her last chest x- ray was yesterday showing persistent interstitial infiltrates. Afrin spray added. 07/31 patient examined bedside. Shortness of breath is improved currently on 4- 1/2 L of oxygen saturating well at 93-95%. The patient's breathing is better. Sinus congestion is better with Afrin spray. Continue Bumex at 2 mg IV daily. Metolazone increased to 2.5 mg daily from Thursday and Thursday. Solu- Medrol switched to prednisone 30 mg by mouth daily. Blood sugar remains to be high Levemir increased to 30 twice a day 08/01: Patient continues to complain of sore mouth. She has already been treated with nystatin and now on Diflucan. We will add and cool solution 3 times daily. She is currently on 8 L high flow nasal cannula with pulse ox of 92%. Afebrile, heart rate 65, blood pressure 118/72. Repeat blood work reveals WBC 18.45. Hemoglobin 11.1, platelet count 217. Potassium is 2.8 and will be replaced with 120 mEq of potassium. Recheck potassium this afternoon. BUN 57, creatinine 1.1. Blood sugar was low this morning at 46 with repeated 63. Scheduled NovoLog discontinued, Levemir decreased from 30 units twice daily to 40 units once at bedtime C-reactive protein less than 0.4. LDH 395. Liver function tests are elevated with total bilirubin 1.3, AST 62, ALT 130, apply phosphatase 139. CTA of the chest showed no acute pulmonary embolism. Scatte red groundglass opacities and increased lung markings considered atypical pneumonia or pulmonary edema. REVI EW OF SYSTEMS CONSTITUTIONAL: Well-developed with no respiratory distress at rest. Denies fevers. Denies chills. EYES: No icterus sclerae, no conjunctivitis. EARS, NOSE, MOUTH, THROAT, and FACE: Reports nasal congestion. No sore throat, lymphadenopathy, carotid bruits or deformity. Patient complains of sore mouth. RESPIRATORY: Moderate dyspnea and shortness of breath and cough. Dyspnea with exertion. Dyspnea at rest. CARDIOVASCULAR: Positive PND orthopnea . Denies palpitation with no angina. GASTROINTESTINAL: No Abd pain, Nausea or vomiting, no Diarrhea or constipation, No GI Bleed, no distention or masses. GENITOURINARY: Negative for Hematuria or UTI, no kidney stones. INTEGUMENT/BREAST: Negative for any muscular injury with mild osteoarthritis. Chronic edema. HEMATOLOGIC/LYMPHATIC: Negative for bleed or purpura. MUSCULOSKELTAL: Negative for Myalgia or arthralgia. Significant arthralgia and myalgia. NEURLOGICAL: No LOC, Sz or syncope, blurred vision dizziness or abnormality.. BEHAVIORAL/PSYCH: Negative. ENDOCRLavina blood sugars PHYSICAL EXAMINATION General Appearance: Alert, cooperative, morbidly obese in no respiratory distress. Patient is resting comfortably in chair. Neck HEENT: Supple, no lymphadenopathy, no thyroid enlargement, no carotid bruits. Lungs: Decreased breath some bilateral expiratory wheezes. No accessory muscle usage while at rest. Chest Wall: Decrease expansion with deep inspiration no tenderness and no deformity was found on exam, no costochondral pain or discomfort. Heart: Regular rate and rhythm, S1, S2 positive systolic murmur with S3. Back: Symmetric, no curvature, ROM normal, no CVA tenderness. Abdomen: Soft, non-tender, bowel sounds active all four quadrants, no masses, no organomegaly. Extremities: 1+ edema and decreased pulses bilaterally. Pulses: 1+ and sym metric. Skin: Skin color, texture, tugor normal, no rashes or lesions. Neurologic: Alert oriented x3 cranial nerves II through XII intact, no motor deficit, no abnormal balance or gait. ASSESSMENT AND PLAN 1 acute hypoxic respiratory failure secondary to acute Covid pneumonitis with worsening symptoms. Consult with pulmonary medicine. Solu-Medrol transitioned to oral prednisone, status post convalescent plasma, continue vitamin C, vitamin D, colchicine, oxygen support, lovenox increased to 40 mg daily. Continue Bumex 2 mg IV push daily and discontinued zaroxyln. Continue Tessalon Perles, Afrin added. 2 acute Covid pneumonitis with worsening symptoms. Continue as in #1. 3 COPD continue albuterol inhaler. 4. Paroxysmal atrial fibrillation, unable to tolerate anticoagulation secondary to acute GI bleed, continue metoprolol 12.5 mg twice daily and flecainide 50 mg twice a day. 5 type 2 diabetes, uncontrolled with hyperglycemia secondary to steroids and hypoglycemia. Continue Accu-Chek with sliding scales coverage continue Lantus decreased to 40 units at bedtime. Discontinue scheduled NovoLog. 6 chronic diastolic heart failure. Continue Bumex 1 mg daily IV, Lopressor. 7 peptic ulcer disease and GI prophylaxis: Continue patient on pantoprazole 40 mg daily. 8 chronic anemia: Remain on iron supplement and multivitamins no need for transfusion. 9 mild hyponatremia: Most likely SIADH from pneumonia will continue mild gentle hydration repeat chemistry in the next 24 hours. 10 DVT prophylaxis: Patient will be on Lovenox subcutaneous daily. 11 GI prophylaxis: Will be on pantoprazole. 12. Diarrhea. Stool cultures. C. diff negative. Diarrhea most likely secondary to Augmentin. 13. Thrush. Patient has been treated with nystatin, Diflucan. Add cool solution. CODE STATUS: No Code DISCHARGE PLAN Most likely home this week. Patient may require home oxygen. Impression and plan of care have been directed as dictated by the signing physician. Leeann Rose nurse practitioner acting as scribe for signing physician. Objective - Vital Signs Vital signs: Vital Signs Temp 97.7 F 08/01/20 05:54 Pulse 75 08/01/20 05:54 Resp 20 08/01/20 07:15 BP 118/66 08/01/20 05:54 Pulse Ox 93 L 08/01/20 05:54 Intake & Output 07/31/20 08/01/20 08/01/20 18:59 06:59 18:59 Output Total 250 Balance -250 Weight 129 kg Output: Urine 250 Other: Voiding Method External Catheter External Catheter # Voids 1 # Bowel Movements 1 - Labs CBC & Chem 7: 08/01/20 05:29 08/01/20 05:29 Labs: Abnormal Lab Results - Last 24 Hours (Table) 07/31/20 07/31/20 07/31/20 Range/Units 05:48 05:48 11:42 WBC 12.57 H (4.50-10.00) X 10*3/uL Hgb 10.8 L (12.0-15.0) g/dL MCV 77.1 L (80.0-97.0) fL MCH 21.7 L (27.0-32.0) pg MCHC 28.2 L (32.0-37.0) g/dL RDW 19.6 H (11.5-14.5) % Immature Gran # 0.17 H (0.00-0.04) X 10*3/uL Neutrophils # 11.76 H (1.80-7.70) X 10*3/uL Lymphocytes # 0.18 L (0.90-5.00) X 10*3/uL Eosinophils # 0 L (0.04-0.35) X 10*3/uL Potassium 3.3 L (3.5-5.5) mmol/L Chloride 94 L (96-109) mmol/L Carbon Dioxide 33.0 H (21.6-31.8) mmol/L BUN 56.0 H (9.0-27.0) mg/dL Est GFR (CKD-EPI)AfAm 57.7 L (60.0-200.0) Est GFR (CKD-EPI)NonAf 49.8 L (60.0-200.0) BUN/Creatinine Ratio 50.91 H (12.00-20.00) Ratio Glucose 270 H (70-110) mg/dL POC Glucose (mg/dL) 253 H (75-99) mg/dL Calcium 8.1 L (8.7-10.3) mg/dL AST 60 H (13-35) U/L ALT 133 H (8-44) U/L Alkaline Phosphatase 135 H (41-126) U/L Lactate Dehydrogenase 329 H (120-246) U/L Total Protein 5.5 L (6.2-8.2) g/dL Albumin 2.90 L (3.80-4.90) g/dL Albumin/Globulin Ratio 1.12 L (1.60-3.17) g/dL 07/31/20 07/31/20 08/01/20 Range/Units 16:44 20:54 05:29 WBC 18.45 H (4.50-10.00) X 10*3/uL Hgb 11.1 L (12.0-15.0) g/dL MCV 75.8 L (80.0-97.0) fL MCH 22.4 L (27.0-32.0) pg MCHC 29.6 L (32.0-37.0) g/dL RDW 19.8 H (11.5-14.5) % Immature Gran # 0.59 H (0.00-0.04) X 10*3/uL Neutrophils # 16.69 H (1.80-7.70) X 10*3/uL Lymphocytes # 0.38 L (0.90-5.00) X 10*3/uL Eosinophils # 0 L (0.04-0.35) X 10*3/uL Potassium (3.5-5.5) mmol/L Chloride (96-109) mmol/L Carbon Dioxide (21.6-31.8) mmol/L BUN (9.0-27.0) mg/dL Est GFR (CKD-EPI)AfAm (60.0-200.0) Est GFR (CKD-EPI)NonAf (60.0-200.0) BUN/Creatinine Ratio (12.00-20.00) Ratio Glucose (70-110) mg/dL POC Glucose (mg/dL) 269 H 145 H (75-99) mg/dL Calcium (8.7-10.3) mg/dL AST (13-35) U/L ALT (8-44) U/L Alkaline Phosphatase (41-126) U/L Lactate Dehydrogenase (120-246) U/L Total Protein (6.2-8.2) g/dL Albumin (3.80-4.90) g/dL Albumin/Globulin Ratio (1.60-3.17) g/dL 08/01/20 Range/Units 06:58 WBC (4.50-10.00) X 10*3/uL Hgb (12.0-15.0) g/dL MCV (80.0-97.0) fL MCH (27.0-32.0) pg MCHC (32.0-37.0) g/dL RDW (11.5-14.5) % Immature Gran # (0.00-0.04) X 10*3/uL Neutrophils # (1.80-7.70) X 10*3/uL Lymphocytes # (0.90-5.00) X 10*3/uL Eosinophils # (0.04-0.35) X 10*3/uL Potassium (3.5-5.5) mmol/L Chloride (96-109) mmol/L Carbon Dioxide (21.6-31.8) mmol/L BUN (9.0-27.0) mg/dL Est GFR (CKD-EPI)AfAm (60.0-200.0) Est GFR (CKD-EPI)NonAf (60.0-200.0) BUN/Creatinine Ratio (12.00-20.00) Ratio Glucose (70-110) mg/dL POC Glucose (mg/dL) 63 L (75-99) mg/dL Calcium (8.7-10.3) mg/dL AST (13-35) U/L ALT (8-44) U/L Alkaline Phosphatase (41-126) U/L Lactate Dehydrogenase (120-246) U/L Total Protein (6.2-8.2) g/dL Albumin (3.80-4.90) g/dL Albumin/Globulin Ratio (1.60-3.17) g/dL
[2020-08-01] MEDS ORDERED: metOLazone 2.5 MG TAB PO ONE (14:15)
[2020-08-01 17:33] LABS: Glucose,Whole Blood 99 mg/dL (75-99)
[2020-08-01 19:24] LABS: LDH 942 U/L (313-618)
[2020-08-01 19:39] LABS: C Reactive Protein <5.0 mg/L (<10.0)
[2020-08-01 20:38] LABS: Glucose,Whole Blood 272 mg/dL (75-99)
[2020-08-01] MEDS: ALBUTEROL HFA INHALER INHALATION PRN (20:39)
[2020-08-01] MEDS ORDERED: INSULIN DETEMIR (LEVEMIR) 100 UNIT/ML SYR SQ SCH (21:00)
[2020-08-01] MEDS: MELATONIN 3 MG TABLET PO SCH (21:29)
[2020-08-01] MEDS: LINAGLIPTIN 5 MG TABLET PO SCH (21:29)
[2020-08-02] MEDS: Acetaminophen-Codeine 300-30mg TAB PO PRN (02:26)
[2020-08-02 06:56] LABS: Glucose,Whole Blood 60 mg/dL (75-99)
[2020-08-02] MEDS: POTASSIUM CHLORIDE ER 20 MEQ TAB.ER PO SCH (07:59)
[2020-08-02] MEDS: FLUCONAZOLE 100 MG TAB PO SCH (08:00)
[2020-08-02] MEDS: BENZONATATE 100 MG CAP PO SCH ×3 (08:00→21:07)
[2020-08-02] MEDS: METOPROLOL TARTRATE 12.5 MG TAB PO SCH (08:00)
[2020-08-02] MEDS: ZINC SULFATE 220 MG CAP PO SCH (08:00)
[2020-08-02] MEDS: CHOLECALCIFEROL 25 MCG (1000 IU) TABLET PO SCH (08:00)
[2020-08-02] MEDS: ASCORBIC ACID 500 MG TAB PO SCH (08:01)
[2020-08-02] MEDS: PANTOPRAZOLE 40 MG TABLET PO SCH ×2 (08:01→21:08)
[2020-08-02] MEDS: ENOXAPARIN 40 MG/0.4 ML SYRINGE SQ SCH (08:02)
[2020-08-02] MEDS: FLECAINIDE 50 MG TAB PO SCH ×2 (08:02→21:07)
[2020-08-02] MEDS: COLCHICINE 0.6 MG EACH PO SCH (08:02)
[2020-08-02] MEDS: metOLazone 5 MG TAB PO SCH (08:03)
[2020-08-02] MEDS: INSULIN ASPART (NovoLOG) 100 UNIT/ML VIAL SQ SCH ×4 (08:04→21:02)
[2020-08-02] MEDS: CHOLESTYRAMINE (WITH SUGAR) 4 GM PACKET PO SCH ×2 (08:04→16:56)
[2020-08-02] MEDS: MAG HYDROX/AL HYDROX/SIMETH 30 ML, LIDOCAINE VISCOUS 30 ML, NYSTATIN 100,000 UNIT/ML SU... PO SCH ×9 (08:05→21:22)
[2020-08-02] MEDS: OXYMETAZOLINE 0.05% NASL SPRAY 1 SPRAY BOTTLE NASAL SCH ×2 (08:05→23:21)
[2020-08-02 08:09] LABS: Glucose,Whole Blood 96 mg/dL (75-99)
[2020-08-02 08:59] LABS: Basophils # (A) 0.04 X 10*3/uL (0.00-0.10); Basophils % (A) 0.2 %; Eosinophils # (A) 0.02 X 10*3/uL (0.04-0.35); Eosinophils % (A) 0.1 %; HGB 11.2 g/dL (12.0-15.0); Lymphocytes # (A) 1.06 X 10*3/uL (0.90-5.00); Lymphocytes % (A) 6.1 %; MCH 21.9 pg (27.0-32.0); MCV 78.1 fL (80.0-97.0); Mean Platelet Volume 10.7 fL (9.5-12.2); Monocytes # (A) 0.74 X 10*3/uL (0.20-1.00); Monocytes % (A) 4.2 %; Neutrophils # (A) 14.91 X 10*3/uL (1.80-7.70); Neutrophils % (A) 85.4 %; Platelet Count 206 X 10*3/uL (140-440); RBC 5.12 X 10*6/uL (4.10-5.20); RDW 20.7 % (11.5-14.5); WBC 17.47 X 10*3/uL (4.50-10.00)
[2020-08-02] MEDS ORDERED: BUMETANIDE 1 MG TAB PO SCH (09:00)
[2020-08-02] MEDS ORDERED: predniSONE 20 MG TAB PO SCH (09:00)
[2020-08-02] MEDS: ALBUTEROL HFA INHALER INHALATION PRN (09:44)
[2020-08-02 10:38] LABS: African American GFR (CKD) 57.7 (60.0-200.0); Albumin/Globulin Ratio 1.25 (1.60-3.17); Anion Gap 10.6 mmol/L (4.00-12.00); BUN/Creat Ratio 50.91 Ratio (12.00-20.00); Calcium 8.5 mg/dL (8.7-10.3); Carbon Dioxide 32.4 mmol/L (21.6-31.8); Globulin 2.4 g/dL (1.6-3.3); Non-African American GFR(CKD) 49.8 (60.0-200.0); Potassium 4.1 mmol/L (3.5-5.5); Total Bilirubin 1.1 mg/dL (0.2-1.2); Total Protein 5.4 g/dL (6.2-8.2)
[2020-08-02] MEDS: methylPREDNISolone SOD SUCCI 125 MG/2 ML VIAL IV SCH ×3 (11:34→23:47)
[2020-08-02] MEDS: BUMETANIDE 0.25 MG/ML 4 ML VIAL IVP SCH ×2 (11:36→21:08)
[2020-08-02] MEDS: PIPERACILLIN-TAZOBACTAM 3.375 GM in SODIUM CHLORIDE 0.9% 100 ML IVPB SCH ×2 (11:37→20:58)
[2020-08-02 11:39] LABS: Glucose,Whole Blood 161 mg/dL (75-99)
--- NOTE | 2020-08-02 11:55 | P.PN ---
Subjective Progress Note Date: 08/02/20 74-year-old female who was seen in the emergency department on 07/16/2020, at 1535. The patient presented with complaints of shortness of breath. The patient has a history of atrial fibrillation, obesity, congestive heart failure, and diabetes. She apparently was diagnosed with COVID 19 infection on July 09. Prior to being tested positive, the patient had 2 weeks of what she describes as a head cold. She started taking vitamins, and Decadron. More recently, she's been getting progressively worse as it relates to her shortness of breath, which now occurs on any activity. She does have some nausea, but denies any vomiting or diarrhea. She denies any chest pain. She denies any genitourinary complaints and lower extremity edema. Apparently her family doctor recommended that she come into the emergency room to be evaluated. A chest x-ray reveals some mild pulmonary interstitial pneumonia, and the CT angiogram revealed no evidence of any central or large pulmonary emboli, but did show extensive groundglass pulmonary interstitial infiltrates, consistent with her diagnosis of COVID19 pneumonia. Unfortunately, she is beyond the window for remdesivir. Currently, she is on 5 L nasal cannula, and her saturations are 99%. Her respiratory rate is 20, and her temperature is 97.6F. Blood pressure is good and heart rate is 71 bpm. Her current white count is 8.09, hemoglobin 10.1, hematocrit 34.7, and platelet count 137,000. Sodium is 135, potassium 4.9, chlorides 102, CO2 25, anion gap 8, BUN 17, and creatinine 0.8. D-dimer is 1.21, ferritin is 624, LDH is 1468, and C-reactive protein is 139. N-terminal proBNP was 1970. Pro-calcitonin level was 0.20. On 07/18/2020 patient seen in follow-up on medical floor, she is currently on 11 L of oxygen, she is awake and alert, she said nobody into the bed, apparently earlier she felt a little dizzy, she feels fatigued, be in no acute distress. Today's labs have been reviewed, showing white blood cell count of 18.5, hemoglobin is 10.4, his inflammatory markers are trending down, LDH is down to 943, CRP is down to 6.6, pro calcitonin level was 0.20. Continues on prophylactic dose of Lovenox, IV Decadron 6 mg daily, colchicine, and zinc On 07/19/2020 patient seen in follow-up on medical floor. She is currently up to 2 L of oxygen, her pulse ox is 91-94%, she states she feels better but she is requiring more oxygen, she states she is coughing up some phlegm. Today's chest x-ray has been reviewed showing central vascularity and interstitial increased, bilateral groundglass opacity within the lungs. And there is persistent elevation of the right hemidiaphragm. Patient seems to have increased edema in her lower extremities, she is currently on a daily dose of oral Bumex 1 mg daily, her lung sounds positive for scattered rhonchi. We will add empiric antibiotics, will afternoon dose of oral Bumex and obtain follow-up chest x-ray tomorrow. Physically she states she is feeling better, she is able to clear some phlegm. On 07/20/2020 patient seen in follow-up on medical floor, her oxygen requirements are continuously increasing, currently up to 15 L of oxygen per high flow nasal cannula and partial nonrebreather and her pulse ox is between 91-95%, afebrile. She is more dyspneic today, her lower extremities remain swollen, we did give the patient a dose of diuretics yesterday, however her neck fluid balance is very difficult to estimate. Her inflammatory markers have been reviewed, and pH is down to 780, and CRP is at 9.4, pro calcitonin level has decreased and is down to 0.12, however d-dimer has trended down and is up to 8.72, and we will adjust the dose of Lovenox to 0.5 mg/kg of body weight twice daily. Based Effexor has been reviewed showing worsening airspace disease, pneumonia and pulmonary edema. On 07/30/2020 patient seen in follow-up on medical floor, she is awake and alert, in no acute distress, currently sitting up in a chair, her pulse ox on 7 L of oxygen is 91%, patient does desaturate with exertion. She is breathing comfortably, no cough, no complaints of chest discomfort, she's been afebrile, hemodynamically she's been stable. Her inflammatory markers are improving, her last d-dimer on 07/26/2020 was 2.81. She continues on IV steroids 60 mg every 6 hours, she is on diuretics, IV Bumex 2 mg daily, in addition to Zaroxolyn 2.5 mg on Thursday and Thursday. She is diuresing, she is in -2.5 L fluid balance over the last 24 hours. Her stool culture was positive for Vianey albicans, and so was her sputum culture. She is on Diflucan. Her last chest x-ray was yesterday showing persistent interstitial infiltrates. No new labs today, no new chest x- ray, clinically patient has been stable, no complaints of nausea, vomiting or diarrhea. Lower extremity edema is improving. On 07/31/2020 patient seen in follow-up. Patient is on 7 L of oxygen, we dropped the FiO2 down to 4-1/2 L, and her pulse ox is maintained at 93-94%, patient still does have exertional dyspnea, but overall she is improving, she is awake and alert, oriented 3, no altered mentation, increased questions appropriately, she's had no fever or chills, vital signs have been stable, no worsening dyspnea, no cough or chest pain. Follow-up chest x-ray today shows bilateral areas of increased interstitial markings and patchy infiltrates with small effusions stable in appearance. Patient has been on high-dose IV steroids with Solu-Medrol 60 mg every 6 hours, she is on prophylactic dose of Lovenox 40 mg daily, she remains on IV Bumex at 2 mg daily, she is on bronchodilators, she is on oral Diflucan. She's had no acute events overnight. Today's labs have been reviewed, inflammatory markers are improving. No complaints of nausea vomiting or diarrhea. Patient is tolerating oral intake. On 08/01/2020 patient seen in follow-up. Patient is more dyspneic today, she is in the 7-8 L of oxygen per simple nasal cannula, in her pulse ox is only around 80-82%. She was placed on partial rebreather mask. Lung sounds reveal some minimal crackles, she has no cough or chest pain, no altered mentation, no fever, blood pressure has been stable, yesterday we discontinued her IV Solu-Me drol, and placed her on oral prednisone 30 mg. Continues on prophylactic dose Lovenox, she has been on IV Bumex 2 mg daily, her neck fluid balance is difficult to estimate, however clinically she appears to be dry. Continues on colchicine, she is on vitamins including vitamin C, vitamin D, melatonin and zinc supplement. She is on oral Diflucan. In addition to Bumex she is also on Zaroxolyn 2.5 mg daily. There is a concern about possibility of pulmonary embolism related to patient's history of COVID19, and for that reason CTA chest has been ordered however the radiologist suggested pre-hydration and we'll stop the patient's IV Bumex and we'll give the patient a liter bolus On 08/02/2020 patient seen in follow-up on medical floor. She is currently on 2:15 liters per high flow nasal cannula, she easily desats with any exertion or even talking. She is dyspneic, she denies any acute distress, no complaints of chest discomfort, yesterday we obtained a CTA chest which showed no evidence of acute pulmonary embolism, and did show scattered groundglass opacities throughout the lung muñiz, nonspecific, this could be related to pulmonary edema or atypical pneumonia, linear opacities at the lung bases suggest developing pulmonary fibrosis. She was prehydrated for the CTA chest yesterday, she remains on oral dose of Bumex 1 mg daily in addition to Zaroxolyn, today's labs have been reviewed showing stable renal function with BUN of 56 and creatinine is 1.1, CO2 is 32, the rest of electrolytes are within normal limits, white blood cell count remains elevated, down slightly from yesterday, at 17.4, hemoglobin is 11.2. We'll give the patient additional diuretic. Patient is on oral prednisone 40 mg daily, which we will switch back to IV Solu-Medrol in view of worsening hypoxemia. No nausea vomiting or diarrhea. Remains on prophylactic dose of Lovenox Objective - Vital Signs Vital signs: Vital Signs Temp 97.7 F 08/02/20 10:00 Pulse 78 08/02/20 10:00 Resp 21 08/02/20 10:00 BP 124/77 08/02/20 10:00 Pulse Ox 96 08/02/20 10:00 Intake & Output 08/01/20 08/02/20 08/02/20 18:59 06:59 18:59 Output Total 200 Balance -200 Weight 128.5 kg Output: Urine 200 Other: Voiding Method External Catheter Bedpan Bedpan Diaper Diaper # Voids 1 - Exam GENERAL EXAM: Alert, very pleasant, 74-year-old white female on 15 L of oxygen a pulse ox of 95%, easily desaturates with any exertion or even talking HEAD: Normocephalic/atraumatic. EYES: Normal reaction of pupils, equal size. Conjunctiva pink, sclera white. NOSE: Clear with pink turbinates. THROAT: No erythema or exudates. NECK: No masses, no JVD, no thyroid enlargement, no adenopathy. CHEST: No chest wall deformity. Symmetrical expansion. LUNGS: Equal air entry with no crackles, wheeze, rhonchi or dullness. CVS: Regular rate and rhythm, normal S1 and S2, no gallops, no murmurs, no rubs ABDOMEN: Soft, nontender. No hepatosplenomegaly, normal bowel sounds, no guarding or rigidity. EXTREMITIES: No clubbing, no edema, no cyanosis, 2+ pulses and upper and lower extremities. MUSCULOSKELETAL: Muscle strength and tone normal. SPINE: No scoliosis or deformity SKIN: No rashes CENTRAL NERVOUS SYSTEM: Alert and oriented -3. No focal deficits, tone is normal in all 4 extremities. PSYCHIATRIC: Alert and oriented -3. Appropriate affect. Intact judgment and insight. - Labs CBC & Chem 7: 08/02/20 05:53 08/02/20 05:53 Labs: Abnormal Lab Results - Last 24 Hours (Table) 08/01/20 08/01/20 08/02/20 Range/Units 18:34 20:37 05:53 WBC 17.47 H (4.50-10.00) X 10*3/uL Hgb 11.2 L (12.0-15.0) g/dL MCV 78.1 L (80.0-97.0) fL MCH 21.9 L (27.0-32.0) pg MCHC 28.0 L (32.0-37.0) g/dL RDW 20.7 H (11.5-14.5) % Immature Gran # 0.70 H (0.00-0.04) X 10*3/uL Neutrophils # 14.91 H (1.80-7.70) X 10*3/uL Eosinophils # 0.02 L (0.04-0.35) X 10*3/uL Carbon Dioxide (21.6-31.8) mmol/L BUN (9.0-27.0) mg/dL Est GFR (CKD-EPI)AfAm (60.0-200.0) Est GFR (CKD-EPI)NonAf (60.0-200.0) BUN/Creatinine Ratio (12.00-20.00) Ratio Glucose (70-110) mg/dL POC Glucose (mg/dL) 272 H (75-99) mg/dL Calcium (8.7-10.3) mg/dL AST (13-35) U/L ALT (8-44) U/L Alkaline Phosphatase (41-126) U/L Lactate Dehydrogenase 942 H (313-618) U/L Total Protein (6.2-8.2) g/dL Albumin (3.80-4.90) g/dL Albumin/Globulin Ratio (1.60-3.17) g/dL 08/02/20 08/02/20 08/02/20 Range/Units 05:53 06:54 11:38 WBC (4.50-10.00) X 10*3/uL Hgb (12.0-15.0) g/dL MCV (80.0-97.0) fL MCH (27.0-32.0) pg MCHC (32.0-37.0) g/dL RDW (11.5-14.5) % Immature Gran # (0.00-0.04) X 10*3/uL Neutrophils # (1.80-7.70) X 10*3/uL Eosinophils # (0.04-0.35) X 10*3/uL Carbon Dioxide 32.4 H (21.6-31.8) mmol/L BUN 56.0 H (9.0-27.0) mg/dL Est GFR (CKD-EPI)AfAm 57.7 L (60.0-200.0) Est GFR (CKD-EPI)NonAf 49.8 L (60.0-200.0) BUN/Creatinine Ratio 50.91 H (12.00-20.00) Ratio Glucose 58 L (70-110) mg/dL POC Glucose (mg/dL) 60 L 161 H (75-99) mg/dL Calcium 8.5 L (8.7-10.3) mg/dL AST 88 H (13-35) U/L ALT 169 H (8-44) U/L Alkaline Phosphatase 153 H (41-126) U/L Lactate Dehydrogenase (313-618) U/L Total Protein 5.4 L (6.2-8.2) g/dL Albumin 3.00 L (3.80-4.90) g/dL Albumin/Globulin Ratio 1.25 L (1.60-3.17) g/dL Assessment and Plan Plan: Assessment: #1. Acute hypoxemic respiratory failure secondary to COVID 19 pneumonia. On 05/19/2021 patient hypoxemia is worsening, and patient is currently on 15 L per high flow nasal cannula in addition to nonrebreather mask with pulse ox of 91-96%, she will be given 2 units of convalescent plasma if available, and her s teroids have been increased to 60 mg every 6 hours. Chest x-ray shows worsening airspace disease 07/30/2020 patient is down to 7 L of oxygen a pulse ox of 91-94%, inflammatory markers are improving, overall patient is doing better On 07/31/2020 FiO2 was dropped down to 4-1/2 L/m, and pulse ox remained at 91- 93% On 08/01/2020 patient is having worsening shortness of breath, with worsening hypoxemia, need to rule out possibility of pulmonary embolism, CT chest to be completed this afternoon after rehydration #2. History of diabetes mellitus. #3. History of atrial fibrillation. #4. History of congestive heart failure. #5. History of osteoarthritis. #6. History of chronic back pain. #7. Status post lap band surgery for obesity. #8. History of deafness. Plan: We'll switch to oral Bumex to IV Bumex 1 mg every 12 hours, continue Zaroxolyn, CTA chest ruled out possibility of pulmonary embolism, it did show bilateral groundglass opacities could be related to pulmonary edema or COVID19 inflammatory changes, we will switch to prednisone back to Solu-Medrol 60 mg every 6 hours, we will start empiric antibiotics in the form of Zosyn, we'll send pro-calcitonin level, we'll obtain follow-up inflammatory markers, d-dimer level, for now continue prophylactic dose Lovenox I performed a history & physical examination of the patient and discussed their management with my nurse practitioner, Corrina Paz. I reviewed the nurse practitioner's note and agree with the documented findings and plan of care. Lung sounds are positive for diminished breath sounds. The findings and the impression was discussed with the patient. I attest to the documentation by the nurse practitioner. Time with Patient: Less than 30
[2020-08-02 13:00] LABS: C Reactive Protein 5.6 mg/L (<10.0)
[2020-08-02 14:47] LABS: Hemoglobin A1C 9.2 % (4.0-6.0)
--- NOTE | 2020-08-02 15:42 | P.PN ---
Subjective Progress Note Date: 08/02/20 74-year-old morbidly obese female one of my office patient with past medical history of A. fib with RVR, history of acute gastrointestinal bleed with anemia, history of type 2 diabetes, history of obstructive sleep apnea, mild reactive airway/COPD and mild diastolic congestive heart failure who has been seen in the office the last week for acute Covid, patient was diagnosed on the ended up going for monoclonal anti-body infusion on the . Patient called office with worsening symptoms was seen in virtual visit and was recommended to go to the hospital to be admitted. Patient has been having worsening dyspnea and shortness of breath along with severe hypoxia worsening persistent cough prod uctive of phlegm along with mild twinges of blood. Patient was seen at the emergency department her pulse ox was in the 80 percentile with a few breathing treatment along with 3 L of O2 her pulse ox was increased to the low 90. Patient chest x-ray showed severe interstitial pneumonitis. Her d-dimer was elevated and ended up going for CTA showed extensive ground glass pulmonary interstitial edema could be related to RDS no pleural effusion found at the time. Patient was started on steroids along with updraft treatment O2 will consult pulmonary admit patient to the hospital. 2/2: The patient states that she is feeling much better today. She states that she did not sleep well last night. She is found sitting up in recliner and appears to be comfortable and in no acute distress. She has been afebrile, heart rate 72, blood pressure 160/83, pulse ox 92-98% on 5 L nasal cannula. Consult in place from pulmonary medicine. Blood sugars are running in the 200s. WBC 8, hemoglobin 10.1. Repeat lactic acid 1.7. IV fluids will be discontinued. Patient is on her home dose of Bumex. 2/3: Patient has been afebrile, heart rate 79, blood pressure 162/69, pulse ox 93% on 10 L nasal cannula. Patient complains of shortness of breath and feeling cold. She continues to cough. WBC is 18.5, hemoglobin 10.4, electrolytes normal. Creatinine 0.9. Total bilirubin 0.9, AST 88, ALT 44, alkaline phosphatase 143, LDH 943, C reactive protein 6.6. Overall, inflammatory markers are improving. Patient has been seen by pulmonary medicine and is outside of the window for Remdesivir treatment. Colchicine was added 07/19:tates that she was unable to sleep all night. She was on a nonrebreather and she felt she had a panic attack. She states that she is normally claustrophobic. She is currently seen on 15 L with pulse ox of 91%. She appears to be comfortable at rest. She is complaining of dark brown sputum production. She is also having mild nosebleed with dried blood only. Blood sugars are running between 257-300. D-dimer 8.72. LDH and CRP are pending. Patient has been afebrile, heart rate 82, blood pressure 144/51. She will probably not be ready for discharge until Thursday. 07/20: Patient has developed increasing shortness of breath overnight. She is now requiring high flow nasal cannula and nonrebreather with pulse ox of 91-95%. She has been afebrile, heart rate 77, blood pressure 178/79. Blood sugars are running between 132 and 261. Convalescent plasma has been ordered by pulmonary medicine today. Steroids have been changed to Solu-Medrol 60 mg IV every 6 melly rs. Lovenox increased to 70 mg subcu twice daily. Antibiotics in the form of Augmentin. 07/21: Patient states that she is feeling better compared to yesterday. She continues to be on 15 L high flow not nasal cannula and nonrebreather. We'll continue to attempt to wean. Receiving Bumex 2 mg IV. Continues to have lower extremity swelling bilaterally. Patient received [address] asma. She was complaining of dryness to bilateral nares. Flonase added. Patient remains afebrile, pulse rate 56, blood pressure 167/73, pulse ox 94% on nonrebreather and high flow oxygen. Discussed with patient's CODE STATUS. Patient states that she does not want to be intubated or have CPR performed. We will change her CODE STATUS to no code. 07/22: Patient is found sitting up in chair continue to utilize 15 L of high flow oxygen be significantly cannula nonrebreather pulse oxing 98%. Patient states that she is feeling better able to breathe easier. She has been having diarrhea for the past few days 3-4 episodes yesterday and only one today. Patient denies any abdominal discomfort or blood in stool. She is currently on Augmentin. We will do stool cultures including C. diff. 07/23: Patient remains on high flow nasal cannula 15 L with nonrebreather at her bedside. She is pulse oxing 91 and 94%. She's been afebrile, heart rate in the 70s, blood pressure 123/74. Blood sugars have been between 193 and 339. Anticipate need for oxygen at home. 07/24: Patient is on oxygen at 15 L high flow nasal cannula with pulse ox of 95%. She has been afebrile, heart rate 74, blood pressure 135/75. WBC 9.8, hemoglobin 10.3, platelet count 95. Sodium 136, potassium 3. former be replaced . BUN 35 and creatinine 1. Blood sugars running in the 200s. AST 37, ALT 48. Anticipate that the patient will require home oxygen at the time of discharge. 07/25: Pulse ox is 93% on 15 L high flow nasal cannula and partial rebreather. She's been afebrile, heart rate 89, blood pressure 127/74. Blood sugars running between 128 and 262. Repeat chest x-ray reveals stable findings. Correlate for pneumonia. Patient has been maintained on Augmentin, colchicine, Lovenox, IV Solu-Medrol and supplements. We'll order one additional dose of Bumex this afternoon. 07/26: Patient continues to have cough with hemoptysis, she has shortness of breath with minimal activity. Pulse ox is 91-95% on 15 L high flow nasal cannula. We will add in Tessalon pearls. She continues to have thrush for whic h she is on Diflucan. Bumex increased to 2 mg IV push twice daily. She has been afebrile, heart rate 77, blood pressure 143/68. Repeat blood work reveals WBC 9, hemoglobin 11.2, platelet count 87. Sodium 136, potassium 3.7, CO2 34, BUN 44 and creatinine 0.8. Blood sugars are running 186-237. AST at 73, ALT 73. Repeat LDH 732. C-reactive protein less than 5. Patient will continue treatment in the hospital until oxygenation is improved and she is down to 5 or 6 L nasal cannula. 07/27: Patient is pulse oxing 91-95% on 15 L high flow nasal cannula. She has been afebrile, heart rate 80, blood pressure 139/81. Blood sugars are running between 163 and 246. Patient is continued on IV Solu-Medrol, supplements, Lovenox. 07/28: Patient has been diuresing very well, she has significant weight loss, per patient she has now lost 45 pounds for the past 2 weeks, shortness breath is also much better, pulse oximetry is now are between 90-96%, 11 L nasal cannula, vital signs stable, no fever no chills, no diarrhea, decreas Bumex now to 2 mg daily, she has dyspnea on exertion, minimal conversational dyspnea however this has improved. No lightheadedness no falls 07/29 patient feels not somewhat worse, she seems to slightly be better, has lost 2 more pounds, still diuresing at nighttime, complains of being tired or sleepy during the day, not sleeping well at night. 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 Potassium at 3.4, being replaced 07/30: Blood sugars are in the low 200s, Levemir will be increased to 50 units daily which will start tomorrow. She is currently on Solu-Medrol 60 mg IV every 6 hours. Patient has been afebrile, heart rate 75, blood pressure 108/56. Pulse ox is 91-94% on 7 L high flow nasal cannula which is an improvement over the weekend. Patient does desaturate with exertion. She has been continued onIV Bumex 2 mg daily, in addition to Zaroxolyn 2.5 mg on Thursday and Thursday. She is diuresing, she is in -2.5 L fluid balance over the last 24 hours. Lower extremity edema is improved. Her stool culture was positive for Vianey albicans, and so was her sputum culture. She is on Diflucan. Her last chest x- ray was yesterday showing persistent interstitial infiltrates. Afrin spray added. 07/31 patient examined bedside. Shortness of breath is improved currently on 4- 1/2 L of oxygen saturating well at 93-95%. The patient's breathing is better. Sinus congestion is better with Afrin spray. Continue Bumex at 2 mg IV daily. Metolazone increased to 2.5 mg daily from Thursday and Thursday. Solu- Medrol switched to prednisone 30 mg by mouth daily. Blood sugar remains to be high Levemir increased to 30 twice a day 08/02 patient examined bedside. Shortness of breath is worsened since yesterday patient is currently on 15 L high flow oxygen. Patient switched to Solu-Medrol 60 every 6 hours. CTA ordered to rule out pulmonary embolism but was negative for PE patient continues remain on Bumex in addition to Zaroxolyn. REVI EW OF SYSTEMS CONSTITUTIONAL: Well-developed with no respiratory distress at rest. Denies fevers. Denies chills. EYES: No icterus sclerae, no conjunctivitis. EARS, NOSE, MOUTH, THROAT, and FACE: Reports nasal congestion. No sore throat, lymphadenopathy, carotid bruits or deformity. RESPIRATORY: Moderate dyspnea and shortness of breath and cough. Dyspnea with exertion. Dyspnea at rest. CARDIOVASCULAR: Positive PND orthopnea . Denies palpitation with no angina. GASTROINTESTINAL: No Abd pain, Nausea or vomiting, no Diarrhea or constipation, No GI Bleed, no distention or masses. GENITOURINARY: Negative for Hematuria or UTI, no kidney stones. INTEGUMENT/BREAST: Negative for any muscular injury with mild osteoarthritis. Chronic edema. HEMATOLOGIC/LYMPHATIC: Negative for bleed or purpura. MUSCULOSKELTAL: Negative for Myalgia or arthralgia. Significant arthralgia and myalgia. NEURLOGICAL: No LOC, Sz or syncope, blurred vision dizziness or abnormality.. BEHAVIORAL/PSYCH: Negative. ENDOCRLavina blood sugars PHYSICAL EXAMINATION General Appearance: Alert, cooperative, morbidly obese in no respiratory distress. Patient is resting comfortably in chair. Neck HEENT: Supple, no lymphadenopathy, no thyroid enlargement, no carotid bruits. Lungs: Decreased breath some bilateral expiratory wheezes. Positive mild accessory muscle usage Chest Wall: Decrease expansion with deep inspiration no tenderness and no deformity was found on exam, no costochondral pain or discomfort. Heart: Regular rate and rhythm, S1, S2 positive systolic murmur with S3. Back: Symmetric, no curvature, ROM normal, no CVA tenderness. Abdomen: Soft, non-tender, bowel sounds active all four quadrants, no masses, no organomegaly. Extremities: 1+ edema and decreased pulses bilaterally. Pulses: 1+ and symmetric. Skin: Skin color, texture, tugor normal, no rashes or lesions. Neurologic: Alert oriented x3 cranial nerves II through XII intact, no motor deficit, no abnormal balance or gait. Objective - Vital Signs Vital signs: Vital Signs Temp 97.6 F 08/02/20 14:00 Pulse 76 08/02/20 14:00 Resp 21 08/02/20 14:00 BP 120/64 08/02/20 14:00 Pulse Ox 94 L 08/02/20 14:00 Intake & Output 08/01/20 08/02/20 08/02/20 18:59 06:59 18:59 Output Total 200 Balance -200 Weight 128.5 kg Output: Urine 200 Other: Voiding Method External Catheter Bedpan Bedpan Diaper Diaper # Voids 1 - Exam PHYSICAL EXAMINATION General Appearance: Alert, cooperative, morbidly obese in no respiratory dis tress. Patient is resting comfortably in chair. Neck HEENT: Supple, no lymphadenopathy, no thyroid enlargement, no carotid bruits. Lungs: Decreased breath some bilateral expiratory wheezes improved . Positive mild accessory muscle usage Chest Wall: Decrease expansion with deep inspiration no tenderness and no deformity was found on exam, no costochondral pain or discomfort. Heart: Regular rate and rhythm, S1, S2 positive systolic murmur with S3. Back: Symmetric, no curvature, ROM normal, no CVA tenderness. Abdomen: Soft, non-tender, bowel sounds active all four quadrants, no masses, no organomegaly. Extremities: 1+ edema and decreased pulses bilaterally. Pulses: 1+ and symmetric. Skin: Skin color, texture, tugor normal, no rashes or lesions. Neurologic: Alert oriented x3 cranial nerves II through XII intact, no motor deficit, no abnormal balance or gait. - Labs CBC & Chem 7: 08/02/20 05:53 08/02/20 05:53 Labs: Abnormal Lab Results - Last 24 Hours (Table) 08/01/20 08/01/20 08/02/20 Range/Units 18:34 20:37 05:53 WBC 17.47 H (4.50-10.00) X 10*3/uL Hgb 11.2 L (12.0-15.0) g/dL MCV 78.1 L (80.0-97.0) fL MCH 21.9 L (27.0-32.0) pg MCHC 28.0 L (32.0-37.0) g/dL RDW 20.7 H (11.5-14.5) % Immature Gran # 0.70 H (0.00-0.04) X 10*3/uL Neutrophils # 14.91 H (1.80-7.70) X 10*3/uL Eosinophils # 0.02 L (0.04-0.35) X 10*3/uL Carbon Dioxide (21.6-31.8) mmol/L BUN (9.0-27.0) mg/dL Est GFR (CKD-EPI)AfAm (60.0-200.0) Est GFR (CKD-EPI)NonAf (60.0-200.0) BUN/Creatinine Ratio (12.00-20.00) Ratio Glucose (70-110) mg/dL POC Glucose (mg/dL) 272 H (75-99) mg/dL Hemoglobin A1c (4.0-6.0) % Calcium (8.7-10.3) mg/dL AST (13-35) U/L ALT (8-44) U/L Alkaline Phosphatase (41-126) U/L Lactate Dehydrogenase 942 H (313-618) U/L Total Protein (6.2-8.2) g/dL Albumin (3.80-4.90) g/dL Albumin/Globulin Ratio (1.60-3.17) g/dL 08/02/20 08/02/20 08/02/20 Range/Units 05:53 05:53 05:53 WBC (4.50-10.00) X 10*3/uL Hgb (12.0-15.0) g/dL MCV (80.0-97.0) fL MCH (27.0-32.0) pg MCHC (32.0-37.0) g/dL RDW (11.5-14.5) % Immature Gran # (0.00-0.04) X 10*3/uL Neutrophils # (1.80-7.70) X 10*3/uL Eosinophils # (0.04-0.35) X 10*3/uL Carbon Dioxide 32.4 H (21.6-31.8) mmol/L BUN 56.0 H (9.0-27.0) mg/dL Est GFR (CKD-EPI)AfAm 57.7 L (60.0-200.0) Est GFR (CKD-EPI)NonAf 49.8 L (60.0-200.0) BUN/Creatinine Ratio 50.91 H (12.00-20.00) Ratio Glucose 58 L (70-110) mg/dL POC Glucose (mg/dL) (75-99) mg/dL Hemoglobin A1c 9.2 H (4.0-6.0) % Calcium 8.5 L (8.7-10.3) mg/dL AST 88 H (13-35) U/L ALT 169 H (8-44) U/L Alkaline Phosphatase 153 H (41-126) U/L Lactate Dehydrogenase 1463 H (313-618) U/L Total Protein 5.4 L (6.2-8.2) g/dL Albumin 3.00 L (3.80-4.90) g/dL Albumin/Globulin Ratio 1.25 L (1.60-3.17) g/dL 08/02/20 08/02/20 Range/Units 06:54 11:38 WBC (4.50-10.00) X 10*3/uL Hgb (12.0-15.0) g/dL MCV (80.0-97.0) fL MCH (27.0-32.0) pg MCHC (32.0-37.0) g/dL RDW (11.5-14.5) % Immature Gran # (0.00-0.04) X 10*3/uL Neutrophils # (1.80-7.70) X 10*3/uL Eosinophils # (0.04-0.35) X 10*3/uL Carbon Dioxide (21.6-31.8) mmol/L BUN (9.0-27.0) mg/dL Est GFR (CKD-EPI)AfAm (60.0-200.0) Est GFR (CKD-EPI)NonAf (60.0-200.0) BUN/Creatinine Ratio (12.00-20.00) Ratio Glucose (70-110) mg/dL POC Glucose (mg/dL) 60 L 161 H (75-99) mg/dL Hemoglobin A1c (4.0-6.0) % Calcium (8.7-10.3) mg/dL AST (13-35) U/L ALT (8-44) U/L Alkaline Phosphatase (41-126) U/L Lactate Dehydrogenase (313-618) U/L Total Protein (6.2-8.2) g/dL Albumin (3.80-4.90) g/dL Albumin/Globulin Ratio (1.60-3.17) g/dL Assessment and Plan Plan: ASSESSMENT AND PLAN 1 acute hypoxic respiratory failure secondary to acute Covid pneumonitis with worsening symptoms. Consult with pulmonary medicine. Prednisone switch to Solu-Medrol 60 every 6, convalescent plasma, Augmentin, vitamin C, vitamin D, colchicine, oxygen support, lovenox 40 mg by mouth daily Continue Bumex 2 mg IV daily and zaroxyln increased to 2.5 mg every day from Thursday and Thursday. Continue TesVanita Skelton helped with rhinitis 2 acute Covid pneumonitis with worsening symptoms. Continue as in #1. 3 COPD continue albuterol inhaler. 4. Paroxysmal atrial fibrillation, unable to tolerate anticoagulation secondary to acute GI bleed, continue metoprolol 12.5 mg twice daily and flecainide 50 mg twice a day. 5 type 2 diabetes, uncontrolled with hyperglycemia secondary to steroids. Continue Accu-Chek with sliding scales coverage continue Lantus increased to 50 units daily and still on Januvia. And scheduled NovoLog 3u increased to 6 units with meals 6 chronic diastolic heart failure. Continue Bumex 1 mg twice brandon IV y, Lopressor. 7 peptic ulcer disease and GI prophylaxis: Continue patient on pantoprazole 40 mg daily. 8 chronic anemia: Remain on iron supplement and multivitamins no need for transfusion. 9 mild hyponatremia: Most likely SIADH from pneumonia will continue mild gentle hydration repeat chemistry in the next 24 hours. 10 DVT prophylaxis: Patient will be on Lovenox subcutaneous daily. 11 GI prophylaxis: Will be on pantoprazole. 12. Diarrhea. Stool cultures. C. diff negative. Diarrhea most likely secondary to Augmentin. CODE STATUS: No Code
[2020-08-02 16:03] VITALS: BMI 47.1
[2020-08-02 16:46] LABS: Glucose,Whole Blood 370 mg/dL (75-99)
[2020-08-02 20:37] LABS: Glucose,Whole Blood 456 mg/dL (75-99)
[2020-08-02] MEDS: LINAGLIPTIN 5 MG TABLET PO SCH (20:59)
[2020-08-02] MEDS ORDERED: INSULIN DETEMIR (LEVEMIR) 100 UNIT/ML SYR SQ SCH (21:00)
[2020-08-02] MEDS ORDERED: INSULIN ASPART (NovoLOG) 100 UNIT/ML VIAL SQ SCH (21:00)
[2020-08-02] MEDS: ACETAMINOPHEN TAB 325 MG TAB PO PRN (21:05)
[2020-08-02] MEDS: MELATONIN 3 MG TABLET PO SCH (21:08)
[2020-08-03 01:36] LABS: Glucose,Whole Blood 317 mg/dL (75-99)
[2020-08-03] MEDS: PIPERACILLIN-TAZOBACTAM 3.375 GM in SODIUM CHLORIDE 0.9% 100 ML IVPB SCH ×3 (04:09→20:26)
[2020-08-03] MEDS: Acetaminophen-Codeine 300-30mg TAB PO PRN ×2 (04:43→21:01)
[2020-08-03] MEDS: methylPREDNISolone SOD SUCCI 125 MG/2 ML VIAL IV SCH ×4 (07:23→23:09)
[2020-08-03 07:30] LABS: Glucose,Whole Blood 221 mg/dL (75-99)
[2020-08-03] MEDS: PANTOPRAZOLE 40 MG TABLET PO SCH ×2 (08:03→21:01)
[2020-08-03] MEDS: METOPROLOL TARTRATE 12.5 MG TAB PO SCH (08:03)
[2020-08-03] MEDS: CHOLECALCIFEROL 25 MCG (1000 IU) TABLET PO SCH (08:03)
[2020-08-03] MEDS: BENZONATATE 100 MG CAP PO SCH ×3 (08:03→21:00)
[2020-08-03] MEDS: POTASSIUM CHLORIDE ER 20 MEQ TAB.ER PO SCH (08:03)
[2020-08-03] MEDS: FLUCONAZOLE 100 MG TAB PO SCH (08:03)
[2020-08-03] MEDS: ENOXAPARIN 40 MG/0.4 ML SYRINGE SQ SCH (08:04)
[2020-08-03] MEDS: ASCORBIC ACID 500 MG TAB PO SCH (08:04)
[2020-08-03] MEDS: ZINC SULFATE 220 MG CAP PO SCH (08:04)
[2020-08-03] MEDS: COLCHICINE 0.6 MG EACH PO SCH (08:05)
[2020-08-03] MEDS: INSULIN ASPART (NovoLOG) 100 UNIT/ML VIAL SQ SCH ×7 (08:05→21:00)
[2020-08-03] MEDS: BUMETANIDE 0.25 MG/ML 4 ML VIAL IVP SCH ×2 (08:05→21:00)
[2020-08-03] MEDS: FLECAINIDE 50 MG TAB PO SCH ×2 (08:06→21:00)
[2020-08-03] MEDS: metOLazone 5 MG TAB PO SCH (08:07)
[2020-08-03] MEDS: OXYMETAZOLINE 0.05% NASL SPRAY 1 SPRAY BOTTLE NASAL SCH ×2 (08:14→21:01)
[2020-08-03] MEDS: CHOLESTYRAMINE (WITH SUGAR) 4 GM PACKET PO SCH ×2 (08:14→16:30)
[2020-08-03] MEDS: MAG HYDROX/AL HYDROX/SIMETH 30 ML, LIDOCAINE VISCOUS 30 ML, NYSTATIN 100,000 UNIT/ML SU... PO SCH ×9 (08:20→21:01)
[2020-08-03] MEDS: ALBUTEROL HFA INHALER INHALATION PRN ×3 (08:31→19:34)
[2020-08-03 11:53] LABS: Glucose,Whole Blood 408 mg/dL (75-99)
--- NOTE | 2020-08-03 12:14 | P.PN ---
Subjective Progress Note Date: 08/03/20 Principal diagnosis: CoVID 19 pneumonia 74-year-old female who was seen in the emergency department on 07/16/2020, at 1535. The patient presented with complaints of shortness of breath. The patient has a history of atrial fibrillation, obesity, congestive heart failure, and diabetes. She apparently was diagnosed with COVID 19 infection on July 09. Prior to being tested positive, the patient had 2 weeks of what she describes as a head cold. She started taking vitamins, and Decadron. More recently, she's been getting progressively worse as it relates to her shortness of breath, which now occurs on any activity. She does have some nausea, but denies any vomiting or diarrhea. She denies any chest pain. She denies any genitourinary complaints and lower extremity edema. Apparently her family doctor recommended that she come into the emergency room to be evaluated. A chest x-ray reveals some mild pulmonary interstitial pneumonia, and the CT angiogram revealed no evidence of any central or large pulmonary emboli, but did show extensive groundglass pulmonary interstitial infiltrates, consistent with her diagnosis of COVID19 pneumonia. Unfortunately, she is beyond the window for remdesivir. Currently, she is on 5 L nasal cannula, and her saturations are 99%. Her respiratory rate is 20, and her temperature is 97.6F. Blood pressure is good and heart rate is 71 bpm. Her current white count is 8.09, hemoglobin 10.1, hematocrit 34.7, and platelet count 137,000. Sodium is 135, potassium 4.9, chlorides 102, CO2 25, anion gap 8, BUN 17, and creatinine 0.8. D-dimer is 1.21, ferritin is 624, LDH is 1468, and C-reactive protein is 139. N-terminal proBNP was 1970. Pro-calcitonin level was 0.20. On 07/18/2020 patient seen in follow-up on medical floor, she is currently on 11 L of oxygen, she is awake and alert, she said nobody into the bed, apparently earlier she felt a little dizzy, she feels fatigued, be in no acute distress. Today's labs have been reviewed, showing white blood cell count of 18.5, hemoglobin is 10.4, his inflammatory markers are trending down, LDH is down to 943, CRP is down to 6.6, pro calcitonin level was 0.20. Continues on prophylactic dose of Lovenox, IV Decadron 6 mg daily, colchicine, and zinc On 07/19/2020 patient seen in follow-up on medical floor. She is currently up to 2 L of oxygen, her pulse ox is 91-94%, she states she feels better but she is requiring more oxygen, she states she is coughing up some phlegm. Today's chest x-ray has been reviewed showing central vascularity and interstitial increased, bilateral groundglass opacity within the lungs. And there is persistent elevation of the right hemidiaphragm. Patient seems to have increased edema in her lower extremities, she is currently on a daily dose of oral Bumex 1 mg daily, her lung sounds positive for scattered rhonchi. We will add empiric antibiotics, will afternoon dose of oral Bumex and obtain follow-up chest x-ray tomorrow. Physically she states she is feeling better, she is able to clear some phlegm. On 07/20/2020 patient seen in follow-up on medical floor, her oxygen requirements are continuously increasing, currently up to 15 L of oxygen per high flow nasal cannula and partial nonrebreather and her pulse ox is between 91-95%, afebrile. She is more dyspneic today, her lower extremities remain swollen, we did give the patient a dose of diuretics yesterday, however her neck fluid balance is very difficult to estimate. Her inflammatory markers have been reviewed, and pH is down to 780, and CRP is at 9.4, pro calcitonin level has decreased and is down to 0.12, however d-dimer has trended down and is up to 8.72, and we will adjust the dose of Lovenox to 0.5 mg/kg of body weight twice daily. Based Effexor has been reviewed showing worsening airspace disease, pneumonia and pulmonary edema. The patient is seen today 07/21/2020 in follow-up on the regular medical floor. She is currently sitting up in a chair at the bedside. Awake and alert in no acute distress. She is still requiring 15 L high flow nasal cannula along with 15 L partial rebreather mask. O2 saturations in the low 90s. She is afebrile. She has received 1 unit of convalescent plasma. White count 16.2. Hemoglobin 10.2. Lymphocytes 0.3. Sodium 138. Potassium 3.8. Creatinine 0.8. She is on antibiotics in the form of Augmentin. Continue on vitamin supplements. Remains on colchicine, IV Solu-Medrol, Lovenox. The patient is seen today 07/22/2020 in follow-up on the regular medical floor. She is awake and alert in no acute distress. Sitting up in a chair at the bedside. She is still requiring 15 L high flow nasal cannula along with a partial nonrebreather mask to maintain O2 saturations in the low 90s. Chest x-r ay continues to show bilateral airspace infiltrates however there is some interval improvement. She did receive 1 unit of convalescent plasma. D-dimer 7.56. LDH 531. C-reactive protein 3.3. She remains on colchicine, IV Solu- Medrol, Lovenox, vitamin supplements, Augmentin. The patient is seen today 07/29/2020 in follow-up on the regular medical floor. She is currently sitting up in a chair at the bedside. Awake and alert in no acute distress. She is down to 10 L high flow nasal cannula O2 saturation 97%. She's afebrile. Hemodynamically stable. Chest x-ray shows persistent intersti tial infiltrates. Stable compared to previous. She has received 2 units of convalescent plasma. Blood cultures revealed no growth. Sputum culture positive for Vianey. Blood glucose 194. She remains on bronchodilators, IV Solu-Medrol, Lovenox, Colcrys, Protonix, vitamin supplements. IV Bumex. The patient is seen today 08/03/2020 in follow-up on the regular medical floor. She is currently sitting up at the bedside. Awake and alert in no acute distress. She is currently on 10 L high flow nasal cannula and maintaining O2 saturations in the 90s. This is been dialed down to 6 L and currently 96%. She's afebrile. D-dimer 1.21. Glucose 221. She is improved on Bumex 1 mg IV push every 12 hours. Remains on vitamin supplements, IV Solu-Medrol and colchicine. Antibiotics in the form of Zosyn. Objective - Vital Signs Vital signs: Vital Signs Temp 97.7 F 08/03/20 10:44 Pulse 73 08/03/20 10:44 Resp 18 08/03/20 10:44 BP 128/66 08/03/20 10:44 Pulse Ox 96 08/03/20 10:44 Intake & Output 08/02/20 08/03/20 08/03/20 18:59 06:59 18:59 Intake Total 500 280 Output Total 200 1100 1100 Balance -200 -600 -820 Weight 128.5 kg 126.8 kg Intake: Oral 500 280 Output: Urine 200 1100 1100 Other: Voiding Method Bedpan Bedpan Bedpan Diaper External Catheter External Catheter # Voids 1 2 # Bowel Movements 2 - Exam GENERAL EXAM: Alert, very pleasant, obese 75-year-old female patient 10 L of high flow oxygen, in no acute distress HEAD: Normocephalic/atraumatic. EYES: Normal reaction of pupils, equal size. Conjunctiva pink, sclera white. NOSE: Clear with pink turbinates. THROAT: No erythema or exudates. NECK: No masses, no JVD, no thyroid enlargement, no adenopathy. CHEST: No chest wall deformity. Symmetrical expansion. LUNGS: Equal air entry with bilateral scattered rhonchi CVS: Regular rate and rhythm, normal S1 and S2, no gallops, no murmurs, no rubs ABDOMEN: Soft, nontender. No hepatosplenomegaly, normal bowel sounds, no guarding or rigidity. EXTREMITIES: No clubbing, no edema, no cyanosis, 2+ pulses and upper and lower extremities. MUSCULOSKELETAL: Muscle strength and tone normal. SPINE: No scoliosis or deformity SKIN: No rashes CENTRAL NERVOUS SYSTEM: No focal deficits, tone is normal in all 4 extremities. PSYCHIATRIC: Alert and oriented -3. Appropriate affect. Intact judgment and insight. - Labs CBC & Chem 7: 08/02/20 05:53 08/02/20 05:53 Labs: Abnormal Lab Results - Last 24 Hours (Table) 08/02/20 08/02/20 08/02/20 Range/Units 05:53 05:53 16:42 D-Dimer (<0.60) mg/L FEU POC Glucose (mg/dL) 370 H (75-99) mg/dL Hemoglobin A1c 9.2 H (4.0-6.0) % Lactate Dehydrogenase 1463 H (313-618) U/L 08/02/20 08/03/20 08/03/20 Range/Units 20:33 01:34 06:57 D-Dimer 1.21 H (<0.60) mg/L FEU POC Glucose (mg/dL) 456 H 317 H (75-99) mg/dL Hemoglobin A1c (4.0-6.0) % Lactate Dehydrogenase (313-618) U/L 08/03/20 08/03/20 Range/Units 07:28 11:49 D-Dimer (<0.60) mg/L FEU POC Glucose (mg/dL) 221 H 408 H (75-99) mg/dL Hemoglobin A1c (4.0-6.0) % Lactate Dehydrogenase (313-618) U/L Assessment and Plan Assessment: 1 Acute hypoxemic respiratory failure secondary to COVID 19 pneumonia. Currently on 10 L high flow nasal cannula 2 History of diabetes mellitus. 3 History of atrial fibrillation. 4 History of congestive heart failure. 5 History of osteoarthritis. 6 History of chronic back pain. 7 Status post lap band surgery for obesity. 8 History of deafness. Plan: The patient was seen and evaluated by Dr. Zuniga Titrate down the FiO2 as tolerated Continue Mauricio Ariza She is a DO NOT RESUSCITATE/DO NOT INTUBATE CODE STATUS We will continue to follow I, the cosigning physician, performed a history & physical examination of the patient. Lungs sounds bilateral scattered rhonchi. Maintaining good O2 saturations in the 90s on 10 L high flow nasal cannula. I discussed the assessment and plan of care with my nurse practitioner, Luisa Lubin. I attest to the above note as dictated by her.
--- NOTE | 2020-08-03 16:36 | P.PN ---
Subjective Progress Note Date: 08/03/20 74-year-old morbidly obese female one of my office patient with past medical history of A. fib with RVR, history of acute gastrointestinal bleed with anemia, history of type 2 diabetes, history of obstructive sleep apnea, mild reactive airway/COPD and mild diastolic congestive heart failure who has been seen in the office the last week for acute Covid, patient was diagnosed on the ended up going for monoclonal anti-body infusion on the . Patient called office with worsening symptoms was seen in virtual visit and was recommended to go to the hospital to be admitted. Patient has been having worsening dyspnea and shortness of breath along with severe hypoxia worsening persistent cough prod uctive of phlegm along with mild twinges of blood. Patient was seen at the emergency department her pulse ox was in the 80 percentile with a few breathing treatment along with 3 L of O2 her pulse ox was increased to the low 90. Patient chest x-ray showed severe interstitial pneumonitis. Her d-dimer was elevated and ended up going for CTA showed extensive ground glass pulmonary interstitial edema could be related to RDS no pleural effusion found at the time. Patient was started on steroids along with updraft treatment O2 will consult pulmonary admit patient to the hospital. 2/2: The patient states that she is feeling much better today. She states that she did not sleep well last night. She is found sitting up in recliner and appears to be comfortable and in no acute distress. She has been afebrile, heart rate 72, blood pressure 160/83, pulse ox 92-98% on 5 L nasal cannula. Consult in place from pulmonary medicine. Blood sugars are running in the 200s. WBC 8, hemoglobin 10.1. Repeat lactic acid 1.7. IV fluids will be discontinued. Patient is on her home dose of Bumex. 2/3: Patient has been afebrile, heart rate 79, blood pressure 162/69, pulse ox 93% on 10 L nasal cannula. Patient complains of shortness of breath and feeling cold. She continues to cough. WBC is 18.5, hemoglobin 10.4, electrolytes normal. Creatinine 0.9. Total bilirubin 0.9, AST 88, ALT 44, alkaline phosphatase 143, LDH 943, C reactive protein 6.6. Overall, inflammatory markers are improving. Patient has been seen by pulmonary medicine and is outside of the window for Remdesivir treatment. Colchicine was added 07/19:tates that she was unable to sleep all night. She was on a nonrebreather and she felt she had a panic attack. She states that she is normally claustrophobic. She is currently seen on 15 L with pulse ox of 91%. She appears to be comfortable at rest. She is complaining of dark brown sputum production. She is also having mild nosebleed with dried blood only. Blood sugars are running between 257-300. D-dimer 8.72. LDH and CRP are pending. Patient has been afebrile, heart rate 82, blood pressure 144/51. She will probably not be ready for discharge until Thursday. 07/20: Patient has developed increasing shortness of breath overnight. She is now requiring high flow nasal cannula and nonrebreather with pulse ox of 91-95%. She has been afebrile, heart rate 77, blood pressure 178/79. Blood sugars are running between 132 and 261. Convalescent plasma has been ordered by pulmonary medicine today. Steroids have been changed to Solu-Medrol 60 mg IV every 6 melly rs. Lovenox increased to 70 mg subcu twice daily. Antibiotics in the form of Augmentin. 07/21: Patient states that she is feeling better compared to yesterday. She continues to be on 15 L high flow not nasal cannula and nonrebreather. We'll continue to attempt to wean. Receiving Bumex 2 mg IV. Continues to have lower extremity swelling bilaterally. Patient received [address] asma. She was complaining of dryness to bilateral nares. Flonase added. Patient remains afebrile, pulse rate 56, blood pressure 167/73, pulse ox 94% on nonrebreather and high flow oxygen. Discussed with patient's CODE STATUS. Patient states that she does not want to be intubated or have CPR performed. We will change her CODE STATUS to no code. 07/22: Patient is found sitting up in chair continue to utilize 15 L of high flow oxygen be significantly cannula nonrebreather pulse oxing 98%. Patient states that she is feeling better able to breathe easier. She has been having diarrhea for the past few days 3-4 episodes yesterday and only one today. Patient denies any abdominal discomfort or blood in stool. She is currently on Augmentin. We will do stool cultures including C. diff. 07/23: Patient remains on high flow nasal cannula 15 L with nonrebreather at her bedside. She is pulse oxing 91 and 94%. She's been afebrile, heart rate in the 70s, blood pressure 123/74. Blood sugars have been between 193 and 339. Anticipate need for oxygen at home. 07/24: Patient is on oxygen at 15 L high flow nasal cannula with pulse ox of 95%. She has been afebrile, heart rate 74, blood pressure 135/75. WBC 9.8, hemoglobin 10.3, platelet count 95. Sodium 136, potassium 3. former be replaced . BUN 35 and creatinine 1. Blood sugars running in the 200s. AST 37, ALT 48. Anticipate that the patient will require home oxygen at the time of discharge. 07/25: Pulse ox is 93% on 15 L high flow nasal cannula and partial rebreather. She's been afebrile, heart rate 89, blood pressure 127/74. Blood sugars running between 128 and 262. Repeat chest x-ray reveals stable findings. Correlate for pneumonia. Patient has been maintained on Augmentin, colchicine, Lovenox, IV Solu-Medrol and supplements. We'll order one additional dose of Bumex this afternoon. 07/26: Patient continues to have cough with hemoptysis, she has shortness of breath with minimal activity. Pulse ox is 91-95% on 15 L high flow nasal cannula. We will add in Tessalon pearls. She continues to have thrush for whic h she is on Diflucan. Bumex increased to 2 mg IV push twice daily. She has been afebrile, heart rate 77, blood pressure 143/68. Repeat blood work reveals WBC 9, hemoglobin 11.2, platelet count 87. Sodium 136, potassium 3.7, CO2 34, BUN 44 and creatinine 0.8. Blood sugars are running 186-237. AST at 73, ALT 73. Repeat LDH 732. C-reactive protein less than 5. Patient will continue treatment in the hospital until oxygenation is improved and she is down to 5 or 6 L nasal cannula. 07/27: Patient is pulse oxing 91-95% on 15 L high flow nasal cannula. She has been afebrile, heart rate 80, blood pressure 139/81. Blood sugars are running between 163 and 246. Patient is continued on IV Solu-Medrol, supplements, Lovenox. 07/28: Patient has been diuresing very well, she has significant weight loss, per patient she has now lost 45 pounds for the past 2 weeks, shortness breath is also much better, pulse oximetry is now are between 90-96%, 11 L nasal cannula, vital signs stable, no fever no chills, no diarrhea, decreas Bumex now to 2 mg daily, she has dyspnea on exertion, minimal conversational dyspnea however this has improved. No lightheadedness no falls 07/29 patient feels not somewhat worse, she seems to slightly be better, has lost 2 more pounds, still diuresing at nighttime, complains of being tired or sleepy during the day, not sleeping well at night. Appetite is much better, no nausea no respiratory events, still 8 L nasal cannula 91%, still has anasarca mainly in the legs, resolved edema in the upper extremities , start melatonin for sleep hygiene orthodoxy, on Zaroxolyn Thursday 2.5, still on Solu-Medrol 60 mg every 6 hours, Bumex at 2 mg IV daily. Potassium at 3.4, being replaced 07/30: Blood sugars are in the low 200s, Levemir will be increased to 50 units daily which will start tomorrow. She is currently on Solu-Medrol 60 mg IV every 6 hours. Patient has been afebrile, heart rate 75, blood pressure 108/56. Pulse ox is 91-94% on 7 L high flow nasal cannula which is an improvement over the weekend. Patient does desaturate with exertion. She has been continued onIV Bumex 2 mg daily, in addition to Zaroxolyn 2.5 mg on Thursday and Thursday. She is diuresing, she is in -2.5 L fluid balance over the last 24 hours. Lower extremity edema is improved. Her stool culture was positive for Vianey albicans, and so was her sputum culture. She is on Diflucan. Her last chest x- ray was yesterday showing persistent interstitial infiltrates. Afrin spray added. 07/31 patient examined bedside. Shortness of breath is improved currently on 4- 1/2 L of oxygen saturating well at 93-95%. The patient's breathing is better. Sinus congestion is better with Afrin spray. Continue Bumex at 2 mg IV daily. Metolazone increased to 2.5 mg daily from Thursday and Thursday. Solu- Medrol switched to prednisone 30 mg by mouth daily. Blood sugar remains to be high Levemir increased to 30 twice a day 08/02 patient examined bedside. Shortness of breath is worsened since yesterday patient is currently on 15 L high flow oxygen. Patient switched to Solu-Medrol 60 every 6 hours. CTA ordered to rule out pulmonary embolism but was negative for PE patient continues remain on Bumex in addition to Zaroxolyn. 08/03 patient examined bedside. Appears comfortable. She is down trended on oxygen need from 15 L to 6 L nasal cannula. Blood sugar appears to be high with the increase in steroids. Continue Solu-Medrol at 60 every 6. Patient initiated on Zosyn by Dr. Ward. Continue Bumex 1 mg IV every 12 in addition to Zaroxolyn. Zaroxolyn increased to 5 mg daily Continue to monitor patient's vitals continue colchicine Protonix 40 twice a day REVI EW OF SYSTEMS CONSTITUTIONAL: Well-developed with no respiratory distress at rest. Denies fevers. Denies chills. EYES: No icterus sclerae, no conjunctivitis. EARS, NOSE, MOUTH, THROAT, and FACE: Reports nasal congestion. No sore throat, lymphadenopathy, carotid bruits or deformity. RESPIRATORY: Moderate dyspnea and shortness of breath and cough. Dyspnea with exertion. Dyspnea at rest. CARDIOVASCULAR: Positive PND orthopnea . Denies palpitation with no angina. GASTROINTESTINAL: No Abd pain, Nausea or vomiting, no Diarrhea or constipation, No GI Bleed, no distention or masses. GENITOURINARY: Negative for Hematuria or UTI, no kidney stones. INTEGUMENT/BREAST: Negative for any muscular injury with mild osteoarthritis. Chronic edema. HEMATOLOGIC/LYMPHATIC: Negative for bleed or purpura. MUSCULOSKELTAL: Negative for Myalgia or arthralgia. Significant arthralgia and myalgia. NEURLOGICAL: No LOC, Sz or syncope, blurred vision dizziness or abnormality.. BEHAVIORAL/PSYCH: Negative. ENDOCRLavina blood sugars Objective - Vital Signs Vital signs: Vital Signs Temp 97.7 F 08/03/20 10:44 Pulse 73 08/03/20 10:44 Resp 18 08/03/20 10:44 BP 128/66 08/03/20 10:44 Pulse Ox 96 08/03/20 10:44 Intake & Output 08/02/20 08/03/20 08/03/20 18:59 06:59 18:59 Intake Total 500 280 Output Total 200 1100 1100 Balance -200 -600 -820 Weight 128.5 kg 126.8 kg Intake: Oral 500 280 Output: Urine 200 1100 1100 Other: Voiding Method Bedpan Bedpan Bedpan Diaper External Catheter External Catheter # Voids 1 2 # Bowel Movements 2 - Exam PHYSICAL EXAMINATION General Appearance: Alert, cooperative, morbidly obese in no respiratory distress. Patient is resting comfortably in chair. Neck HEENT: Supple, no lymphadenopathy, no thyroid enlargement, no carotid bruits. Lungs: Decreased breath some bilateral expiratory wheezes improved . Positive mild accessory muscle usage Chest Wall: Decrease expansion with deep inspiration no tenderness and no deformity was found on exam, no costochondral pain or discomfort. Heart: Regular rate and rhythm, S1, S2 positive systolic murmur with S3. Back: Symmetric, no curvature, ROM normal, no CVA tenderness. Abdomen: Soft, non-tender, bowel sounds active all four quadrants, no masses, no organomegaly. Extremities: 1+ edema and decreased pulses bilaterally. Pulses: 1+ and symmetric. Skin: Skin color, texture, tugor normal, no rashes or lesions. Neurologic: Alert oriented x3 cranial nerves II through XII intact, no motor deficit, no abnormal balance or gait. - Labs CBC & Chem 7: 08/02/20 05:53 08/02/20 05:53 Labs: Abnormal Lab Results - Last 24 Hours (Table) 08/02/20 08/02/20 08/02/20 Range/Units 05:53 05:53 16:42 D-Dimer (<0.60) mg/L FEU POC Glucose (mg/dL) 370 H (75-99) mg/dL Hemoglobin A1c 9.2 H (4.0-6.0) % Lactate Dehydrogenase 1463 H (313-618) U/L 08/02/20 08/03/20 08/03/20 Range/Units 20:33 01:34 06:57 D-Dimer 1.21 H (<0.60) mg/L FEU POC Glucose (mg/dL) 456 H 317 H (75-99) mg/dL Hemoglobin A1c (4.0-6.0) % Lactate Dehydrogenase (313-618) U/L 08/03/20 08/03/20 Range/Units 07:28 11:49 D-Dimer (<0.60) mg/L FEU POC Glucose (mg/dL) 221 H 408 H (75-99) mg/dL Hemoglobin A1c (4.0-6.0) % Lactate Dehydrogenase (313-618) U/L Assessment and Plan Plan: ASSESSMENT AND PLAN 1 acute hypoxic respiratory failure secondary to acute Covid pneumonitis with worsening symptoms. Possible underlying bacterial pneumonia Consult with pulmonary medicine. Prednisone switch to Solu-Medrol 60 every 6, convalescent plasma, Augmentin, vitamin C, vitamin D, colchicine, oxygen support, lovenox 40 mg by mouth daily Continue Bumex 1 mg IV twice a day and zaroxyln increased to 5 mg every day from Thursday and Thursday. Continue Vanita Timmons helped with rhinitis initiated on Zosyn on 08/02 2 acute Covid pneumonitis with worsening symptoms. Continue as in #1. 3 COPD continue albuterol inhaler. 4. Paroxysmal atrial fibrillation, unable to tolerate anticoagulation secondary to acute GI bleed, continue metoprolol 12.5 mg twice daily and flecainide 50 mg twice a day. 5 type 2 diabetes, uncontrolled with hyperglycemia secondary to steroids. Continue Accu-Chek with sliding scales coverage continue Lantus increased to 30 units twice a day units daily and still on Januvia. And scheduled NovoLog 3u with meals 6 chronic diastolic heart failure. Continue Bumex 1 mg twice brandon IV y, Zaroxolyn 5 mg daily Lopressor. 7 peptic ulcer disease and GI prophylaxis: Continue patient on pantoprazole 40 mg twice a day 8 chronic anemia: Remain on iron supplement and multivitamins no need for transfusion. 9 mild hyponatremia: Most likely SIADH from pneumonia will continue mild gentle hydration repeat chemistry in the next 24 hours. 10 DVT prophylaxis: Patient will be on Lovenox subcutaneous daily. 11 GI prophylaxis: Will be on pantoprazole. 12. Diarrhea. Stool cultures. C. diff negative. Diarrhea most likely secondary to Augmentin. CODE STATUS: No Code
[2020-08-03 17:18] LABS: Glucose,Whole Blood 419 mg/dL (75-99)
[2020-08-03 20:43] LABS: Glucose,Whole Blood 453 mg/dL (75-99)
[2020-08-03] MEDS: MELATONIN 3 MG TABLET PO SCH (21:00)
[2020-08-03] MEDS: INSULIN DETEMIR (LEVEMIR) 100 UNIT/ML SYR SQ SCH (21:00)
[2020-08-03] MEDS: LINAGLIPTIN 5 MG TABLET PO SCH (21:00)
[2020-08-04 02:16] LABS: Glucose,Whole Blood 254 mg/dL (75-99)
[2020-08-04] MEDS: PIPERACILLIN-TAZOBACTAM 3.375 GM in SODIUM CHLORIDE 0.9% 100 ML IVPB SCH ×3 (03:04→19:21)
[2020-08-04] MEDS: Acetaminophen-Codeine 300-30mg TAB PO PRN ×3 (03:04→20:22)
[2020-08-04] MEDS: methylPREDNISolone SOD SUCCI 125 MG/2 ML VIAL IV SCH ×4 (05:45→23:06)
[2020-08-04 06:53] LABS: Glucose,Whole Blood 174 mg/dL (75-99)
[2020-08-04] MEDS: INSULIN DETEMIR (LEVEMIR) 100 UNIT/ML SYR SQ SCH ×2 (07:24→20:22)
[2020-08-04] MEDS: ENOXAPARIN 40 MG/0.4 ML SYRINGE SQ SCH (07:24)
[2020-08-04] MEDS: INSULIN ASPART (NovoLOG) 100 UNIT/ML VIAL SQ SCH ×7 (07:24→20:22)
[2020-08-04] MEDS: ASCORBIC ACID 500 MG TAB PO SCH (07:25)
[2020-08-04] MEDS: PANTOPRAZOLE 40 MG TABLET PO SCH ×2 (07:25→20:22)
[2020-08-04] MEDS: ZINC SULFATE 220 MG CAP PO SCH (07:25)
[2020-08-04] MEDS: FLUCONAZOLE 100 MG TAB PO SCH (07:25)
[2020-08-04] MEDS: METOPROLOL TARTRATE 12.5 MG TAB PO SCH (07:25)
[2020-08-04] MEDS: POTASSIUM CHLORIDE ER 20 MEQ TAB.ER PO SCH (07:25)
[2020-08-04] MEDS: BENZONATATE 100 MG CAP PO SCH ×3 (07:26→20:22)
[2020-08-04] MEDS: BUMETANIDE 0.25 MG/ML 4 ML VIAL IVP SCH ×2 (07:26→20:22)
[2020-08-04] MEDS: CHOLESTYRAMINE (WITH SUGAR) 4 GM PACKET PO SCH ×2 (07:26→17:01)
[2020-08-04] MEDS: CHOLECALCIFEROL 25 MCG (1000 IU) TABLET PO SCH (07:26)
[2020-08-04] MEDS: OXYMETAZOLINE 0.05% NASL SPRAY 1 SPRAY BOTTLE NASAL SCH ×2 (07:27→20:23)
[2020-08-04] MEDS: metOLazone 5 MG TAB PO SCH (07:27)
[2020-08-04] MEDS: FLECAINIDE 50 MG TAB PO SCH ×2 (07:27→20:22)
[2020-08-04] MEDS: COLCHICINE 0.6 MG EACH PO SCH (07:27)
[2020-08-04] MEDS: MAG HYDROX/AL HYDROX/SIMETH 30 ML, LIDOCAINE VISCOUS 30 ML, NYSTATIN 100,000 UNIT/ML SU... PO SCH ×9 (07:28→20:23)
[2020-08-04] MEDS: ALBUTEROL HFA INHALER INHALATION PRN ×2 (08:02→11:49)
[2020-08-04 11:16] LABS: Glucose,Whole Blood 301 mg/dL (75-99)
--- NOTE | 2020-08-04 11:38 | P.PN ---
Subjective Progress Note Date: 08/04/20 Principal diagnosis: CoVID 19 pneumonia 74-year-old female who was seen in the emergency department on 07/16/2020, at 1535. The patient presented with complaints of shortness of breath. The patient has a history of atrial fibrillation, obesity, congestive heart failure, and diabetes. She apparently was diagnosed with COVID 19 infection on July 09. Prior to being tested positive, the patient had 2 weeks of what she describes as a head cold. She started taking vitamins, and Decadron. More recently, she's been getting progressively worse as it relates to her shortness of breath, which now occurs on any activity. She does have some nausea, but denies any vomiting or diarrhea. She denies any chest pain. She denies any genitourinary complaints and lower extremity edema. Apparently her family doctor recommended that she come into the emergency room to be evaluated. A chest x-ray reveals some mild pulmonary interstitial pneumonia, and the CT angiogram revealed no evidence of any central or large pulmonary emboli, but did show extensive groundglass pulmonary interstitial infiltrates, consistent with her diagnosis of COVID19 pneumonia. Unfortunately, she is beyond the window for remdesivir. Currently, she is on 5 L nasal cannula, and her saturations are 99%. Her respiratory rate is 20, and her temperature is 97.6F. Blood pressure is good and heart rate is 71 bpm. Her current white count is 8.09, hemoglobin 10.1, hematocrit 34.7, and platelet count 137,000. Sodium is 135, potassium 4.9, chlorides 102, CO2 25, anion gap 8, BUN 17, and creatinine 0.8. D-dimer is 1.21, ferritin is 624, LDH is 1468, and C-reactive protein is 139. N-terminal proBNP was 1970. Pro-calcitonin level was 0.20. On 07/18/2020 patient seen in follow-up on medical floor, she is currently on 11 L of oxygen, she is awake and alert, she said nobody into the bed, apparently earlier she felt a little dizzy, she feels fatigued, be in no acute distress. Today's labs have been reviewed, showing white blood cell count of 18.5, hemoglobin is 10.4, his inflammatory markers are trending down, LDH is down to 943, CRP is down to 6.6, pro calcitonin level was 0.20. Continues on prophylactic dose of Lovenox, IV Decadron 6 mg daily, colchicine, and zinc On 07/19/2020 patient seen in follow-up on medical floor. She is currently up to 2 L of oxygen, her pulse ox is 91-94%, she states she feels better but she is requiring more oxygen, she states she is coughing up some phlegm. Today's chest x-ray has been reviewed showing central vascularity and interstitial increased, bilateral groundglass opacity within the lungs. And there is persistent elevation of the right hemidiaphragm. Patient seems to have increased edema in her lower extremities, she is currently on a daily dose of oral Bumex 1 mg daily, her lung sounds positive for scattered rhonchi. We will add empiric antibiotics, will afternoon dose of oral Bumex and obtain follow-up chest x-ray tomorrow. Physically she states she is feeling better, she is able to clear some phlegm. On 07/20/2020 patient seen in follow-up on medical floor, her oxygen requirements are continuously increasing, currently up to 15 L of oxygen per high flow nasal cannula and partial nonrebreather and her pulse ox is between 91-95%, afebrile. She is more dyspneic today, her lower extremities remain swollen, we did give the patient a dose of diuretics yesterday, however her neck fluid balance is very difficult to estimate. Her inflammatory markers have been reviewed, and pH is down to 780, and CRP is at 9.4, pro calcitonin level has decreased and is down to 0.12, however d-dimer has trended down and is up to 8.72, and we will adjust the dose of Lovenox to 0.5 mg/kg of body weight twice daily. Based Effexor has been reviewed showing worsening airspace disease, pneumonia and pulmonary edema. The patient is seen today 07/21/2020 in follow-up on the regular medical floor. She is currently sitting up in a chair at the bedside. Awake and alert in no acute distress. She is still requiring 15 L high flow nasal cannula along with 15 L partial rebreather mask. O2 saturations in the low 90s. She is afebrile. She has received 1 unit of convalescent plasma. White count 16.2. Hemoglobin 10.2. Lymphocytes 0.3. Sodium 138. Potassium 3.8. Creatinine 0.8. She is on antibiotics in the form of Augmentin. Continue on vitamin supplements. Remains on colchicine, IV Solu-Medrol, Lovenox. The patient is seen today 07/22/2020 in follow-up on the regular medical floor. She is awake and alert in no acute distress. Sitting up in a chair at the bedside. She is still requiring 15 L high flow nasal cannula along with a partial nonrebreather mask to maintain O2 saturations in the low 90s. Chest x-r ay continues to show bilateral airspace infiltrates however there is some interval improvement. She did receive 1 unit of convalescent plasma. D-dimer 7.56. LDH 531. C-reactive protein 3.3. She remains on colchicine, IV Solu- Medrol, Lovenox, vitamin supplements, Augmentin. The patient is seen today 07/29/2020 in follow-up on the regular medical floor. She is currently sitting up in a chair at the bedside. Awake and alert in no acute distress. She is down to 10 L high flow nasal cannula O2 saturation 97%. She's afebrile. Hemodynamically stable. Chest x-ray shows persistent intersti tial infiltrates. Stable compared to previous. She has received 2 units of convalescent plasma. Blood cultures revealed no growth. Sputum culture positive for Vianey. Blood glucose 194. She remains on bronchodilators, IV Solu-Medrol, Lovenox, Colcrys, Protonix, vitamin supplements. IV Bumex. The patient is seen today 08/03/2020 in follow-up on the regular medical floor. She is currently sitting up at the bedside. Awake and alert in no acute distress. She is currently on 10 L high flow nasal cannula and maintaining O2 saturations in the 90s. This is been dialed down to 6 L and currently 96%. She's afebrile. D-dimer 1.21. Glucose 221. She is improved on Bumex 1 mg IV push every 12 hours. Remains on vitamin supplements, IV Solu-Medrol and colchicine. Antibiotics in the form of Zosyn. The patient is seen today 08/04/2020 in follow-up on the regular medical floor. She is currently resting in bed. Awake and alert in no acute distress. Remains on 6 L high flow nasal cannula with O2 saturation in the mid 90s. She is afebrile. Blood glucose 301. Remains on IV Solu-Medrol, bronchodilators, colchicine, Lovenox, vitamin supplements. Antibiotics in the form of Zosyn. Remains on Bumex and Zaroxolyn. Echocardiogram pending. Objective - Vital Signs Vital signs: Vital Signs Temp 97.4 F L 08/04/20 10:00 Pulse 82 08/04/20 10:00 Resp 17 08/04/20 07:25 BP 104/61 08/04/20 10:00 Pulse Ox 96 08/04/20 10:00 Intake & Output 08/03/20 08/04/20 08/04/20 18:59 06:59 18:59 Intake Total 830 Output Total 1100 775 Balance -270 -775 Weight 128 kg Intake: Oral 830 Output: Urine 1100 775 Other: Voiding Method Bedpan Bedpan Bedpan External Catheter External Catheter External Catheter # Bowel Movements 2 - Exam GENERAL EXAM: Alert, very pleasant, obese 75-year-old female patient 6 L of high flow oxygen, in no acute distress HEAD: Normocephalic/atraumatic. EYES: Normal reaction of pupils, equal size. Conjunctiva pink, sclera white. NOSE: Clear with pink turbinates. THROAT: No erythema or exudates. NECK: No masses, no JVD, no thyroid enlargement, no adenopathy. CHEST: No chest wall deformity. Symmetrical expansion. LUNGS: Equal air entry with bilateral scattered rhonchi CVS: Regular rate and rhythm, normal S1 and S2, no gallops, no murmurs, no rubs ABDOMEN: Soft, nontender. No hepatosplenomegaly, normal bowel sounds, no guarding or rigidity. EXTREMITIES: No clubbing, no edema, no cyanosis, 2+ pulses and upper and lower extremities. MUSCULOSKELETAL: Muscle strength and tone normal. SPINE: No scoliosis or deformity SKIN: No rashes CENTRAL NERVOUS SYSTEM: No focal deficits, tone is normal in all 4 extremities. PSYCHIATRIC: Alert and oriented -3. Appropriate affect. Intact judgment and insight. - Labs CBC & Chem 7: 08/02/20 05:53 08/02/20 05:53 Labs: Abnormal Lab Results - Last 24 Hours (Table) 08/03/20 08/03/20 08/03/20 Range/Units 06:57 11:49 17:16 POC Glucose (mg/dL) 408 H 419 H (75-99) mg/dL Lactate Dehydrogenase 344 H (120-246) U/L C-Reactive Protein 2.0 H (0.0-0.8) mg/dL 08/03/20 08/04/20 08/04/20 Range/Units 20:41 02:14 06:52 POC Glucose (mg/dL) 453 H 254 H 174 H (75-99) mg/dL Lactate Dehydrogenase (120-246) U/L C-Reactive Protein (0.0-0.8) mg/dL 08/04/20 Range/Units 11:13 POC Glucose (mg/dL) 301 H (75-99) mg/dL Lactate Dehydrogenase (120-246) U/L C-Reactive Protein (0.0-0.8) mg/dL Assessment and Plan Assessment: 1 Acute hypoxemic respiratory failure secondary to COVID 19 pneumonia. Currently on 6 L high flow nasal cannula 2 History of diabetes mellitus. 3 History of atrial fibrillation. 4 History of congestive heart failure. 5 History of osteoarthritis. 6 History of chronic back pain. 7 Status post lap band surgery for obesity. 8 History of deafness. Plan: The patient was seen and evaluated by Dr. Zuniga Continue Bumex, Zaroxolyn Continue Zosyn, IV Solu-Medrol, bronchodilators Remains on colchicine, Lovenox Echocardiogram pending Titrate down the FiO2 as tolerated Follow-up chest x-ray in a.m. DO NOT RESUSCITATE/DO NOT INTUBATE CODE STATUS We will continue to follow I, the cosigning physician, performed a history & physical examination of the patient. Lungs sounds bilateral scattered rhonchi. Maintaining good O2 saturations in the 90s on 6 L high flow nasal cannula. I discussed the assessment and plan of care with my nurse practitioner, Luisa Lubin. I attest to the above note as dictated by her.
--- NOTE | 2020-08-04 14:04 | P.PN ---
Subjective Progress Note Date: 08/04/20 Principal diagnosis: Acute respiratory failure, acute Covid 19 pneumonitis, severe hypoxia, worsening fluid overload, atherosclerotic heart disease, diastolic heart failure, A. fib with RVR, type 2 diabetes. 74-year-old morbidly obese female one of my office patient with past medical history of A. fib with RVR, history of acute gastrointestinal bleed with anemia, history of type 2 diabetes, history of obstructive sleep apnea, mild reactive airway/COPD and mild diastolic congestive heart failure who has been seen in the office the last week for acute Covid, patient was diagnosed on the ended up going for monoclonal anti-body infusion on the . Patient called office with worsening symptoms was seen in virtual visit and was recommended to go to the hospital to be admitted. Patient has been having worsening dyspnea and shortness of breath along with severe hypoxia worsening persistent cough productive of phlegm along with mild twinges of blood. Patient was seen at the emergency department her pulse ox was in the 80 percentile with a few breathing treatment along with 3 L of O2 her pulse ox was increased to the low 90. Patient chest x-ray showed severe interstitial pneumonitis. Her d-dimer was elevated and ended up going for CTA showed extensive ground glass pulmonary interstitial edema could be related to RDS no pleural effusion found at the time. Patient was started on steroids along with updraft treatment O2 will consult pulmonary admit patient to the hospital. 2/2: The patient states that she is feeling much better today. She states that she did not sleep well last night. She is found sitting up in recliner and appears to be comfortable and in no acute distress. She has been afebrile, heart rate 72, blood pressure 160/83, pulse ox 92-98% on 5 L nasal cannula. Consult in place from pulmonary medicine. Blood sugars are running in the 200s. WBC 8, hemoglobin 10.1. Repeat lactic acid 1.7. IV fluids will be discontinued. Patient is on her home dose of Bumex. 2/3: Patient has been afebrile, heart rate 79, blood pressure 162/69, pulse ox 93% on 10 L nasal cannula. Patient complains of shortness of breath and feeling cold. She continues to cough. WBC is 18.5, hemoglobin 10.4, electrolytes normal. Creatinine 0.9. Total bilirubin 0.9, AST 88, ALT 44, alkaline phosphatase 143, LDH 943, C reactive protein 6.6. Overall, inflammatory markers are improving. Patient has been seen by pulmonary medicine and is outside of th e window for Remdesivir treatment. Colchicine was added 07/19:tates that she was unable to sleep all night. She was on a nonrebreather and she felt she had a panic attack. She states that she is normally claustrophobic. She is currently seen on 15 L with pulse ox of 91%. She appears to be comfortable at rest. She is complaining of dark brown sputum production. She is also having mild nosebleed with dried blood only. Blood sugars are running between 257-300. D-dimer 8.72. LDH and CRP are pending. Patient has been afebrile, heart rate 82, blood pressure 144/51. She will probably not be ready for discharge until Thursday. 07/20: Patient has developed increasing shortness of breath overnight. She is now requiring high flow nasal cannula and nonrebreather with pulse ox of 91-95%. She has been afebrile, heart rate 77, blood pressure 178/79. Blood sugars are running between 132 and 261. Convalescent plasma has been ordered by pulmonary medicine today. Steroids have been changed to Solu-Medrol 60 mg IV every 6 hours. Lovenox increased to 70 mg subcu twice daily. Antibiotics in the form of Augmentin. 07/21: Patient states that she is feeling better compared to yesterday. She continues to be on 15 L high flow not nasal cannula and nonrebreather. We'll continue to attempt to wean. Receiving Bumex 2 mg IV. Continues to have lower extremity swelling bilaterally. Patient received 2 units of convalescent plasma. She was complaining of dryness to bilateral nares. Flonase added. Patient remains afebrile, pulse rate 56, blood pressure 167/73, pulse ox 94% on nonrebreather and high flow oxygen. Discussed with patient's CODE STATUS. Patient states that she does not want to be intubated or have CPR performed. We will change her CODE STATUS to no code. 07/22: Patient is found sitting up in chair continue to utilize 15 L of high flow oxygen be significantly cannula nonrebreather pulse oxing 98%. Patient states that she is feeling better able to breathe easier. She has been having diarrhea for the past few days 3-4 episodes yesterday and only one today. Patient denies any abdominal discomfort or blood in stool. She is currently on Augmentin. We will do stool cultures including C. diff. 07/23: Patient remains on high flow nasal cannula 15 L with nonrebreather at her bedside. She is pulse oxing 91 and 94%. She's been afebrile, heart rate in the 70s, blood pressure 123/74. Blood sugars have been between 193 and 339. Anticipate need for oxygen at home. 07/24: Patient is on oxygen at 15 L high flow nasal cannula with pulse ox of 95%. She has been afebrile, heart rate 74, blood pressure 135/75. WBC 9.8, hemoglobin 10.3, platelet count 95. Sodium 136, potassium 3. former be replaced. BUN 35 and creatinine 1. Blood sugars running in the 200s. AST 37, ALT 48. Anticipate that the patient will require home oxygen at the time of discharge. 07/25: Pulse ox is 93% on 15 L high flow nasal cannula and partial rebreather. She's been afebrile, heart rate 89, blood pressure 127/74. Blood sugars running between 128 and 262. Repeat chest x-ray reveals stable findings. Correlate for pneumonia. Patient has been maintained on Augmentin, colchicine, Lovenox, IV Solu-Medrol and supplements. We'll order one additional dose of Bumex this afternoon. 07/26: Patient continues to have cough with hemoptysis, she has shortness of breath with minimal activity. Pulse ox is 91-95% on 15 L high flow nasal cannula. We will add in Tessalon sherwin. She continues to have thrush for which she is on Diflucan. Bumex increased to 2 mg IV push twice daily. She has been afebrile, heart rate 77, blood pressure 143/68. Repeat blood work reveals WBC 9, hemoglobin 11.2, platelet count 87. Sodium 136, potassium 3.7, CO2 34, BUN 44 and creatinine 0.8. Blood sugars are running 186-237. AST at 73, ALT 73. Repeat LDH 732. C-reactive protein less than 5. Patient will continue treatment in the hospital until oxygenation is improved and she is down to 5 or 6 L nasal cannula. 07/27: Patient is pulse oxing 91-95% on 15 L high flow nasal cannula. She has been afebrile, heart rate 80, blood pressure 139/81. Blood sugars are running between 163 and 246. Patient is continued on IV Solu-Medrol, supplements, Lovenox. 07/28: Patient has been diuresing very well, she has significant weight loss, per patient she has now lost 45 pounds for the past 2 weeks, shortness breath is also much better, pulse oximetry is now are between 90-96%, 11 L nasal cannula, vital signs stable, no fever no chills, no diarrhea, decreas Bumex now to 2 mg daily, she has dyspnea on exertion, minimal conversational dyspnea however this has improved. No lightheadedness no falls 07/29 patient feels not somewhat worse, she seems to slightly be better, has lost 2 more pounds, still diuresing at nighttime, complains of being tired or sleepy during the day, not sleeping well at night. Appetite is much better, no nausea no respiratory events, still 8 L nasal cannula 91%, still has anasarca mainly in the legs, resolved edema in the upper extremities , start melatonin for sleep hygiene baptism, on Zaroxolyn Thursday 2.5, still on Solu-Medrol 60 mg every 6 hours, Bumex at 2 mg IV daily. Potassium at 3.4, being replaced 07/30: Blood sugars are in the low 200s, Levemir will be increased to 50 units daily which will start tomorrow. She is currently on Solu-Medrol 60 mg IV every 6 hours. Patient has been afebrile, heart rate 75, blood pressure 108/56. P ulse ox is 91-94% on 7 L high flow nasal cannula which is an improvement over the weekend. Patient does desaturate with exertion. She has been continued onIV Bumex 2 mg daily, in addition to Zaroxolyn 2.5 mg on Thursday and Thursday. She is diuresing, she is in -2.5 L fluid balance over the last 24 hours. Lower extremity edema is improved. Her stool culture was positive for Vianey albicans, and so was her sputum culture. She is on Diflucan. Her last chest x- ray was yesterday showing persistent interstitial infiltrates. Afrin spray added. 07/31 patient examined bedside. Shortness of breath is improved currently on 4- 1/2 L of oxygen saturating well at 93-95%. The patient's breathing is better. Sinus congestion is better with Afrin spray. Continue Bumex at 2 mg IV daily. Metolazone increased to 2.5 mg daily from Thursday and Thursday. Solu- Medrol switched to prednisone 30 mg by mouth daily. Blood sugar remains to be high Levemir increased to 30 twice a day 08/02 patient examined bedside. Shortness of breath is worsened since yesterday patient is currently on 15 L high flow oxygen. Patient switched to Solu-Medrol 60 every 6 hours. CTA ordered to rule out pulmonary embolism but was negative for PE patient continues remain on Bumex in addition to Zaroxolyn. 08/03 patient examined bedside. Appears comfortable. She is down trended on oxygen need from 15 L to 6 L nasal cannula. Blood sugar appears to be high with the increase in steroids. Continue Solu-Medrol at 60 every 6. Patient initiated on Zosyn by Dr. Ward. Continue Bumex 1 mg IV every 12 in addition to Zaroxolyn. Zaroxolyn increased to 5 mg daily Continue to monitor patient's vitals continue colchicine Protonix 40 twice a day 08/04: Patient is doing better yesterday her oxygen was down to 6 L but the blood to have low-grade temperature review of her chest CAT scan showed some consolidation area around the bronchial tube with scarring from code 19 also shows slight pericardial effusion, echocardiogram will be done today, continue diuretics and be more aggressive with furosemide on the short on the long run. Meanwhile try to decrease her O2 to be under 6 L and hopefully prepare for discharge this week one of the [facility] with higher flow to at least between 5 and 6 L for the next 2-3 weeks. Objective - Vital Signs Vital signs: Vital Signs Temp 97.4 F L 08/04/20 10:00 Pulse 82 08/04/20 10:00 Resp 17 08/04/20 07:25 BP 104/61 08/04/20 10:00 Pulse Ox 96 08/04/20 10:00 Intake & Output 08/03/20 08/04/20 08/04/20 18:59 06:59 18:59 Intake Total 830 Output Total 1100 775 Balance -270 -775 Weight 128 kg Intake: Oral 830 Output: Urine 1100 775 Other: Voiding Method Bedpan Bedpan Bedpan External Catheter External Catheter External Catheter # Bowel Movements 2 - Exam REVI EW OF SYSTEMS CONSTITUTIONAL: Well-developed with no respiratory distress at rest. Denies fevers. Denies chills. EYES: No icterus sclerae, no conjunctivitis. EARS, NOSE, MOUTH, THROAT, and FACE: Reports nasal congestion. No sore throat, lymphadenopathy, carotid bruits or deformity. RESPIRATORY: Moderate dyspnea and shortness of breath and cough. Dyspnea with exertion. Dyspnea at rest. CARDIOVASCULAR: Positive PND orthopnea . Denies palpitation with no angina. GASTROINTESTINAL: No Abd pain, Nausea or vomiting, no Diarrhea or constipation, No GI Bleed, no distention or masses. GENITOURINARY: Negative for Hematuria or UTI, no kidney stones. INTEGUMENT/BREAST: Negative for any muscular injury with mild osteoarthritis. Chronic edema. HEMATOLOGIC/LYMPHATIC: Negative for bleed or purpura. MUSCULOSKELTAL: Negative for Myalgia or arthralgia. Significant arthralgia and myalgia. NEURLOGICAL: No LOC, Sz or syncope, blurred vision dizziness or abnormality.. BEHAVIORAL/PSYCH: Negative. ENDOCRLavina blood sugars PHYSICAL EXAMINATION General Appearance: Alert, cooperative, morbidly obese in no respiratory distress. Patient is resting comfortably in chair. Neck HEENT: Supple, no lymphadenopathy, no thyroid enlargement, no carotid bruits. Lungs: Decreased breath some bilateral expiratory wheezes improved . Positive mild accessory muscle usage Chest Wall: Decrease expansion with deep inspiration no tenderness and no deformity was found on exam, no costochondral pain or discomfort. Heart: Regular rate and rhythm, S1, S2 positive systolic murmur with S3. Back: Symmetric, no curvature, ROM normal, no CVA tenderness. Abdomen: Soft, non-tender, bowel sounds active all four quadrants, no masses, no organomegaly. Extremities: 1+ edema and decreased pulses bilaterally. Pulses: 1+ and symmetric. Skin: Skin color, texture, tugor normal, no rashes or lesions. Neurologic: Alert oriented x3 cranial nerves II through XII intact, no motor deficit, no abnormal balance or gait. - Labs CBC & Chem 7: 08/02/20 05:53 08/02/20 05:53 Labs: Abnormal Lab Results - Last 24 Hours (Table) 02/08/03/20 08/04/20 Range/Units 17:16 20:41 02:14 POC Glucose (mg/dL) 419 H 453 H 254 H (75-99) mg/dL 08/04/20 08/04/20 Range/Units 06:52 11:13 POC Glucose (mg/dL) 174 H 301 H (75-99) mg/dL Assessment and Plan Assessment: 1 acute hypoxic respiratory failure secondary to acute Covid pneumonitis with worsening symptoms. Possible underlying bacterial pneumonia Consult with pulmonary medicine. Prednisone switch to Solu-Medrol 60 every 6, convalescent plasma, Augmentin, vitamin C, vitamin D, colchicine, oxygen support, lovenox 40 mg by mouth daily Continue Bumex 1 mg IV twice a day and zaroxyln increased to 5 mg every day from Thursday and Thursday. Continue TesVanita Skelton helped with rhinitis initiated on Zosyn on 08/02 2 acute Covid pneumonitis with worsening symptoms. Continue as in #1. 3 severe hypoxia: Most likely secondary to Covid 19 pneumonitis, continue patient on higher flow to continue current management. COPD continue albuterol inhaler. 4. Paroxysmal atrial fibrillation, unable to tolerate anticoagulation secondary to acute GI bleed, continue metoprolol 12.5 mg twice daily and flecainide 50 mg twice a day. 5 pericardial effusion: Most likely combination of respiratory failure and diastolic heart failure, echocardiogram was requested today if any abnormality we'll consult cardiology again there is no changes status consistent with i nstability the time we see with major Tamponad. 6 chronic diastolic heart failure. Continue Bumex 1 mg twice brandon IV y, Zaroxolyn 5 mg daily Lopressor. 7 peptic ulcer disease and GI prophylaxis: Continue patient on pantoprazole 40 mg twice a day 8 chronic anemia: Remain on iron supplement and multivitamins no need for transfusion. 9 mild hyponatremia: Most likely SIADH from pneumonia will continue mild gentle hydration repeat chemistry in the next 24 hours. 10 type 2 diabetes, uncontrolled with hyperglycemia secondary to steroids. Continue Accu-Chek with sliding scales coverage continue Lantus increased to 30 units twice a day units daily and still on Januvia. And scheduled NovoLog 3u with meals 11. Diarrhea. Stool cultures. C. diff negative. Diarrhea most likely secondary to Augmentin. 12 discharge planning: The patient is stable titrate PTOT and prepare for subacute rehab on Thursday or Thursday.
[2020-08-04 17:06] LABS: Glucose,Whole Blood 273 mg/dL (75-99)
[2020-08-04 20:12] LABS: Glucose,Whole Blood 294 mg/dL (75-99)
[2020-08-04] MEDS: LINAGLIPTIN 5 MG TABLET PO SCH (20:23)
[2020-08-04] MEDS: MELATONIN 3 MG TABLET PO SCH (20:23)
[2020-08-05] MEDS: PIPERACILLIN-TAZOBACTAM 3.375 GM in SODIUM CHLORIDE 0.9% 100 ML IVPB SCH ×3 (03:05→19:10)
[2020-08-05] MEDS: Acetaminophen-Codeine 300-30mg TAB PO PRN (03:44)
[2020-08-05] MEDS: methylPREDNISolone SOD SUCCI 125 MG/2 ML VIAL IV SCH ×4 (05:33→23:18)
--- NOTE | 2020-08-05 07:15 | XR ---
EXAMINATION TYPE: XR chest 1V portable DATE OF EXAM: 08/05/2020 HISTORY: Shortness of breath. COMPARISON: 07/31/2020 TECHNIQUE: Single view of the chest is submitted. FINDINGS: Demonstrated are scattered senescent parenchymal change. Progression of mixed interstitial and alveolar infiltrates. Please note however the degree of inspira tion is somewhat limited. The heart is stable. Hilar and mediastinal structures are within normal limits. Degenerative changes are seen of the dorsal spine. IMPRESSION: 1. Progression of mixed interstitial and alveolar infiltrates. Please note however the degree of ins piration is somewhat limited.
[2020-08-05 07:20] LABS: Glucose,Whole Blood 136 mg/dL (75-99)
[2020-08-05] MEDS: ENOXAPARIN 40 MG/0.4 ML SYRINGE SQ SCH (07:58)
[2020-08-05] MEDS: CHOLECALCIFEROL 25 MCG (1000 IU) TABLET PO SCH (07:59)
[2020-08-05] MEDS: POTASSIUM CHLORIDE ER 20 MEQ TAB.ER PO SCH (07:59)
[2020-08-05] MEDS: INSULIN ASPART (NovoLOG) 100 UNIT/ML VIAL SQ SCH ×7 (07:59→20:29)
[2020-08-05] MEDS: METOPROLOL TARTRATE 12.5 MG TAB PO SCH (07:59)
[2020-08-05] MEDS: PANTOPRAZOLE 40 MG TABLET PO SCH ×2 (07:59→20:29)
[2020-08-05] MEDS: ZINC SULFATE 220 MG CAP PO SCH (07:59)
[2020-08-05] MEDS: BENZONATATE 100 MG CAP PO SCH ×3 (07:59→20:29)
[2020-08-05] MEDS: ASCORBIC ACID 500 MG TAB PO SCH (07:59)
[2020-08-05] MEDS: INSULIN DETEMIR (LEVEMIR) 100 UNIT/ML SYR SQ SCH ×2 (08:00→20:29)
[2020-08-05] MEDS: MAG HYDROX/AL HYDROX/SIMETH 30 ML, LIDOCAINE VISCOUS 30 ML, NYSTATIN 100,000 UNIT/ML SU... PO SCH ×9 (08:00→20:30)
[2020-08-05] MEDS: BUMETANIDE 0.25 MG/ML 4 ML VIAL IVP SCH ×2 (08:01→20:29)
[2020-08-05] MEDS: FLECAINIDE 50 MG TAB PO SCH ×2 (08:01→20:29)
[2020-08-05] MEDS: CHOLESTYRAMINE (WITH SUGAR) 4 GM PACKET PO SCH ×2 (08:01→17:18)
[2020-08-05] MEDS: COLCHICINE 0.6 MG EACH PO SCH (08:01)
[2020-08-05] MEDS: OXYMETAZOLINE 0.05% NASL SPRAY 1 SPRAY BOTTLE NASAL SCH ×2 (08:02→20:30)
[2020-08-05] MEDS: metOLazone 5 MG TAB PO SCH (08:02)
[2020-08-05] MEDS: ALBUTEROL HFA INHALER INHALATION PRN ×2 (08:41→12:38)
[2020-08-05 09:15] LABS: HCT 38.6 % (37.2-46.3); HGB 11.1 g/dL (12.0-15.0); MCH 22.3 pg (27.0-32.0); MCHC 28.8 g/dL (32.0-37.0); MCV 77.5 fL (80.0-97.0); Mean Platelet Volume 10.5 fL (9.5-12.2); Platelet Count 145 X 10*3/uL (140-440); RBC 4.98 X 10*6/uL (4.10-5.20); RDW 21.1 % (11.5-14.5); WBC 14.52 X 10*3/uL (4.50-10.00)
[2020-08-05 09:38] LABS: African American GFR (CKD) 64.7 (60.0-200.0); Albumin 2.9 g/dL (3.80-4.90); Albumin/Globulin Ratio 1.12 (1.60-3.17); Anion Gap 9.5 mmol/L (4.00-12.00); Calcium 8.3 mg/dL (8.7-10.3); Carbon Dioxide 35.5 mmol/L (21.6-31.8); Globulin 2.6 g/dL (1.6-3.3); Non-African American GFR(CKD) 55.8 (60.0-200.0); Potassium 3.3 mmol/L (3.5-5.5); Total Bilirubin 1.3 mg/dL (0.2-1.2); Total Protein 5.5 g/dL (6.2-8.2)
--- NOTE | 2020-08-05 09:59 | ECHOF ---
Referral Reason:lvfunction, Pericardiac Effusion MEASUREMENTS -------- HEIGHT: 165.1 cm WEIGHT: 136.1 kg BP: RVIDd: 3.3 cm (< 3.3) IVSd: 2.0 cm (0.6 - 1.1) LVIDd: 3.3 cm (3.9 - 5.3) LVPWd: 2.0 cm (0.6 - 1.1) IVSs: 2.6 cm LVIDs: 2.5 cm LVPWs: 1.5 cm LA Diam: 3.8 cm (2.7 - 3.8) Ao Diam: 3.3 cm (2.0 - 3.7) AV maxP.51 mmHg AV meanP.22 mmHg FINDINGS -------- Atrial fibrillation. Morbid Obesity Pt is positive for Covid. The left ventricular size is normal. There is severe concentric left ventricular hypertrophy. Ove rall left ventricular systolic function is low-normal with, an EF between 50 - 55 %. The right ventricle is normal in size. The left atrium was not well visualized. The right atrium is normal in size. Lumason used The aortic valve was not well visualized. There is mild aortic stenosis present. Peak/mean gradie nt across the Aortic Valve is 25.51mmHg / 12.22mmHg. The mitral valve was not well visualized. The tricuspid valve was not well visualized. The pulmonic valve was not well visualized. The aortic root size is normal. There is a small, generalized pericardial effusion present. CONCLUSIONS -------- 1. Morbid Obesity 2. Pt is positive for Covid. 3. The left ventricular size is normal. 4. There is severe concentric left ventricular hypertrophy. 5. Overall left ventricular systolic function is low-normal with, an EF between 50 - 55 %. 6. The right ventricle is normal in size. 7. The left atrium was not well visualized. 8. The right atrium is normal in size. 9. Lumason used 10. The aortic valve was not well visualized. 11. There is mild aortic stenosis present. 12. Peak/mean gradient across the Aortic Valve is 25.51mmHg / 12.22mmHg. 13. The mitral valve was not well visualized. 14. The tricuspid valve was not well visualized. 15. The pulmonic valve was not well visualized. 16. The aortic root size is normal. 17. There is a small, generalized pericardial effusion present. ELECTROPLATING WORKER: Bryanna Kelley RDCS
--- NOTE | 2020-08-05 10:42 | P.PN ---
Subjective Progress Note Date: 08/05/20 Principal diagnosis: Acute respiratory failure, acute Covid 19 pneumonitis, severe hypoxia, worsening fluid overload, atherosclerotic heart disease, diastolic heart failure, A. fib with RVR, type 2 diabetes. 74-year-old morbidly obese female one of my office patient with past medical history of A. fib with RVR, history of acute gastrointestinal bleed with anemia, history of type 2 diabetes, history of obstructive sleep apnea, mild reactive airway/COPD and mild diastolic congestive heart failure who has been seen in the office the last week for acute Covid, patient was diagnosed on the ended up going for monoclonal anti-body infusion on the . Patient called office with worsening symptoms was seen in virtual visit and was recommended to go to the hospital to be admitted. Patient has been having worsening dyspnea and shortness of breath along with severe hypoxia worsening persistent cough productive of phlegm along with mild twinges of blood. Patient was seen at the emergency department her pulse ox was in the 80 percentile with a few breathing treatment along with 3 L of O2 her pulse ox was increased to the low 90. Patient chest x-ray showed severe interstitial pneumonitis. Her d-dimer was elevated and ended up going for CTA showed extensive ground glass pulmonary interstitial edema could be related to RDS no pleural effusion found at the time. Patient was started on steroids along with updraft treatment O2 will consult pulmonary admit patient to the hospital. 2/2: The patient states that she is feeling much better today. She states that she did not sleep well last night. She is found sitting up in recliner and appears to be comfortable and in no acute distress. She has been afebrile, heart rate 72, blood pressure 160/83, pulse ox 92-98% on 5 L nasal cannula. Consult in place from pulmonary medicine. Blood sugars are running in the 200s. WBC 8, hemoglobin 10.1. Repeat lactic acid 1.7. IV fluids will be discontinued. Patient is on her home dose of Bumex. 2/3: Patient has been afebrile, heart rate 79, blood pressure 162/69, pulse ox 93% on 10 L nasal cannula. Patient complains of shortness of breath and feeling cold. She continues to cough. WBC is 18.5, hemoglobin 10.4, electrolytes normal. Creatinine 0.9. Total bilirubin 0.9, AST 88, ALT 44, alkaline phosphatase 143, LDH 943, C reactive protein 6.6. Overall, inflammatory markers are improving. Patient has been seen by pulmonary medicine and is outside of th e window for Remdesivir treatment. Colchicine was added 07/19:tates that she was unable to sleep all night. She was on a nonrebreather and she felt she had a panic attack. She states that she is normally claustrophobic. She is currently seen on 15 L with pulse ox of 91%. She appears to be comfortable at rest. She is complaining of dark brown sputum production. She is also having mild nosebleed with dried blood only. Blood sugars are running between 257-300. D-dimer 8.72. LDH and CRP are pending. Patient has been afebrile, heart rate 82, blood pressure 144/51. She will probably not be ready for discharge until Thursday. 07/20: Patient has developed increasing shortness of breath overnight. She is now requiring high flow nasal cannula and nonrebreather with pulse ox of 91-95%. She has been afebrile, heart rate 77, blood pressure 178/79. Blood sugars are running between 132 and 261. Convalescent plasma has been ordered by pulmonary medicine today. Steroids have been changed to Solu-Medrol 60 mg IV every 6 hours. Lovenox increased to 70 mg subcu twice daily. Antibiotics in the form of Augmentin. 07/21: Patient states that she is feeling better compared to yesterday. She continues to be on 15 L high flow not nasal cannula and nonrebreather. We'll continue to attempt to wean. Receiving Bumex 2 mg IV. Continues to have lower extremity swelling bilaterally. Patient received 2 units of convalescent plasma. She was complaining of dryness to bilateral nares. Flonase added. Patient remains afebrile, pulse rate 56, blood pressure 167/73, pulse ox 94% on nonrebreather and high flow oxygen. Discussed with patient's CODE STATUS. Patient states that she does not want to be intubated or have CPR performed. We will change her CODE STATUS to no code. 07/22: Patient is found sitting up in chair continue to utilize 15 L of high flow oxygen be significantly cannula nonrebreather pulse oxing 98%. Patient states that she is feeling better able to breathe easier. She has been having diarrhea for the past few days 3-4 episodes yesterday and only one today. Patient denies any abdominal discomfort or blood in stool. She is currently on Augmentin. We will do stool cultures including C. diff. 07/23: Patient remains on high flow nasal cannula 15 L with nonrebreather at her bedside. She is pulse oxing 91 and 94%. She's been afebrile, heart rate in the 70s, blood pressure 123/74. Blood sugars have been between 193 and 339. Anticipate need for oxygen at home. 07/24: Patient is on oxygen at 15 L high flow nasal cannula with pulse ox of 95%. She has been afebrile, heart rate 74, blood pressure 135/75. WBC 9.8, hemoglobin 10.3, platelet count 95. Sodium 136, potassium 3. former be replaced. BUN 35 and creatinine 1. Blood sugars running in the 200s. AST 37, ALT 48. Anticipate that the patient will require home oxygen at the time of discharge. 07/25: Pulse ox is 93% on 15 L high flow nasal cannula and partial rebreather. She's been afebrile, heart rate 89, blood pressure 127/74. Blood sugars running between 128 and 262. Repeat chest x-ray reveals stable findings. Correlate for pneumonia. Patient has been maintained on Augmentin, colchicine, Lovenox, IV Solu-Medrol and supplements. We'll order one additional dose of Bumex this afternoon. 07/26: Patient continues to have cough with hemoptysis, she has shortness of breath with minimal activity. Pulse ox is 91-95% on 15 L high flow nasal cannula. We will add in Tessalon sherwin. She continues to have thrush for which she is on Diflucan. Bumex increased to 2 mg IV push twice daily. She has been afebrile, heart rate 77, blood pressure 143/68. Repeat blood work reveals WBC 9, hemoglobin 11.2, platelet count 87. Sodium 136, potassium 3.7, CO2 34, BUN 44 and creatinine 0.8. Blood sugars are running 186-237. AST at 73, ALT 73. Repeat LDH 732. C-reactive protein less than 5. Patient will continue treatment in the hospital until oxygenation is improved and she is down to 5 or 6 L nasal cannula. 07/27: Patient is pulse oxing 91-95% on 15 L high flow nasal cannula. She has been afebrile, heart rate 80, blood pressure 139/81. Blood sugars are running between 163 and 246. Patient is continued on IV Solu-Medrol, supplements, Lovenox. 07/28: Patient has been diuresing very well, she has significant weight loss, per patient she has now lost 45 pounds for the past 2 weeks, shortness breath is also much better, pulse oximetry is now are between 90-96%, 11 L nasal cannula, vital signs stable, no fever no chills, no diarrhea, decreas Bumex now to 2 mg daily, she has dyspnea on exertion, minimal conversational dyspnea however this has improved. No lightheadedness no falls 07/29 patient feels not somewhat worse, she seems to slightly be better, has lost 2 more pounds, still diuresing at nighttime, complains of being tired or sleepy during the day, not sleeping well at night. Appetite is much better, no nausea no respiratory events, still 8 L nasal cannula 91%, still has anasarca mainly in the legs, resolved edema in the upper extremities , start melatonin for sleep hygiene religion, on Zaroxolyn Thursday 2.5, still on Solu-Medrol 60 mg every 6 hours, Bumex at 2 mg IV daily. Potassium at 3.4, being replaced 07/30: Blood sugars are in the low 200s, Levemir will be increased to 50 units daily which will start tomorrow. She is currently on Solu-Medrol 60 mg IV every 6 hours. Patient has been afebrile, heart rate 75, blood pressure 108/56. P ulse ox is 91-94% on 7 L high flow nasal cannula which is an improvement over the weekend. Patient does desaturate with exertion. She has been continued onIV Bumex 2 mg daily, in addition to Zaroxolyn 2.5 mg on Thursday and Thursday. She is diuresing, she is in -2.5 L fluid balance over the last 24 hours. Lower extremity edema is improved. Her stool culture was positive for Vianey albicans, and so was her sputum culture. She is on Diflucan. Her last chest x- ray was yesterday showing persistent interstitial infiltrates. Afrin spray added. 07/31 patient examined bedside. Shortness of breath is improved currently on 4- 1/2 L of oxygen saturating well at 93-95%. The patient's breathing is better. Sinus congestion is better with Afrin spray. Continue Bumex at 2 mg IV daily. Metolazone increased to 2.5 mg daily from Thursday and Thursday. Solu- Medrol switched to prednisone 30 mg by mouth daily. Blood sugar remains to be high Levemir increased to 30 twice a day 08/02 patient examined bedside. Shortness of breath is worsened since yesterday patient is currently on 15 L high flow oxygen. Patient switched to Solu-Medrol 60 every 6 hours. CTA ordered to rule out pulmonary embolism but was negative for PE patient continues remain on Bumex in addition to Zaroxolyn. 08/03 patient examined bedside. Appears comfortable. She is down trended on oxygen need from 15 L to 6 L nasal cannula. Blood sugar appears to be high with the increase in steroids. Continue Solu-Medrol at 60 every 6. Patient initiated on Zosyn by Dr. Ward. Continue Bumex 1 mg IV every 12 in addition to Zaroxolyn. Zaroxolyn increased to 5 mg daily Continue to monitor patient's vitals continue colchicine Protonix 40 twice a day 08/04: Patient is doing better yesterday her oxygen was down to 6 L but the blood to have low-grade temperature review of her chest CAT scan showed some consolidation area around the bronchial tube with scarring from code 19 also shows slight pericardial effusion, echocardiogram will be done today, continue diuretics and be more aggressive with furosemide on the short on the long run. Meanwhile try to decrease her O2 to be under 6 L and hopefully prepare for discharge this week one of the senior care with higher flow to at least between 5 and 6 L for the next 2-3 weeks. 08/05: Patient remain on oxygen require around 5 L nasal cannula, decreased cough, no fever or chills. Echocardiogram result came back with very small amount of pericardial effusion no decompression. Patient is not having any fever or chills. Patient is having significant constipation and plan for discharge tomorrow patient wants to go to subacute rehab most [facility] to [facility]. Objective - Vital Signs Vital signs: Vital Signs Temp 97.4 F L 08/05/20 09:52 Pulse 75 08/05/20 09:52 Resp 18 08/05/20 09:52 BP 113/54 08/05/20 09:52 Pulse Ox 92 L 08/05/20 09:52 Intake & Output 08/04/20 08/05/20 08/05/20 18:59 06:59 18:59 Intake Total 1200 Output Total 1300 800 Balance -100 -800 Weight 127 kg Intake: Oral 1200 Output: Urine 1300 800 Other: Voiding Method Bedpan Bedpan Bedpan External Catheter External Catheter External Catheter - Exam REVI EW OF SYSTEMS CONSTITUTIONAL: Well-developed with no respiratory distress at rest. Denies fevers. Denies chills. EYES: No icterus sclerae, no conjunctivitis. EARS, NOSE, MOUTH, THROAT, and FACE: Reports nasal congestion. No sore throat, lymphadenopathy, carotid bruits or deformity. RESPIRATORY: Moderate dyspnea and shortness of breath and cough. Dyspnea with exertion. Dyspnea at rest. CARDIOVASCULAR: Positive PND orthopnea . Denies palpitation with no angina. GASTROINTESTINAL: No Abd pain, Nausea or vomiting, no Diarrhea or constipation, No GI Bleed, no distention or masses. GENITOURINARY: Negative for Hematuria or UTI, no kidney stones. INTEGUMENT/BREAST: Negative for any muscular injury with mild osteoarthritis. Chronic edema. HEMATOLOGIC/LYMPHATIC: Negative for bleed or purpura. MUSCULOSKELTAL: Negative for Myalgia or arthralgia. Significant arthralgia and myalgia. NEURLOGICAL: No LOC, Sz or syncope, blurred vision dizziness or abnormality.. BEHAVIORAL/PSYCH: Negative. ENDOCRLavina blood sugars PHYSICAL EXAMINATION General Appearance: Alert, cooperative, morbidly obese in no respiratory distress. Patient is resting comfortably in chair. Neck HEENT: Supple, no lymphadenopathy, no thyroid enlargement, no carotid bruits. Lungs: Decreased breath some bilateral expiratory wheezes improved . Positive mild accessory muscle usage Chest Wall: Decrease expansion with deep inspiration no tenderness and no deformity was found on exam, no costochondral pain or discomfort. Heart: Regular rate and rhythm, S1, S2 positive systolic murmur with S3. Back: Symmetric, no curvature, ROM normal, no CVA tenderness. Abdomen: Soft, non-tender, bowel sounds active all four quadrants, no masses, no organomegaly. Extremities: 1+ edema and decreased pulses bilaterally. Pulses: 1+ and symmetric. Skin: Skin color, texture, tugor normal, no rashes or lesions. Neurologic: Alert oriented x3 cranial nerves II through XII intact, no motor deficit, no abnormal balance or gait. - Labs CBC & Chem 7: 08/05/20 05:26 08/05/20 05:26 Labs: Abnormal Lab Results - Last 24 Hours (Table) 08/04/20 08/04/20 08/04/20 Range/Units 11:13 16:52 20:09 WBC (4.50-10.00) X 10*3/uL Hgb (12.0-15.0) g/dL MCV (80.0-97.0) fL MCH (27.0-32.0) pg MCHC (32.0-37.0) g/dL RDW (11.5-14.5) % Potassium (3.5-5.5) mmol/L Chloride (96-109) mmol/L Carbon Dioxide (21.6-31.8) mmol/L BUN (9.0-27.0) mg/dL Est GFR (CKD-EPI)NonAf (60.0-200.0) BUN/Creatinine Ratio (12.00-20.00) Ratio Glucose (70-110) mg/dL POC Glucose (mg/dL) 301 H 273 H 294 H (75-99) mg/dL Calcium (8.7-10.3) mg/dL Total Bilirubin (0.2-1.2) mg/dL AST (13-35) U/L ALT (8-44) U/L Alkaline Phosphatase (41-126) U/L Total Protein (6.2-8.2) g/dL Albumin (3.80-4.90) g/dL Albumin/Globulin Ratio (1.60-3.17) g/dL 08/05/20 08/05/20 08/05/20 Range/Units 05:26 05:26 07:18 WBC 14.52 H (4.50-10.00) X 10*3/uL Hgb 11.1 L (12.0-15.0) g/dL MCV 77.5 L (80.0-97.0) fL MCH 22.3 L (27.0-32.0) pg MCHC 28.8 L (32.0-37.0) g/dL RDW 21.1 H (11.5-14.5) % Potassium 3.3 L (3.5-5.5) mmol/L Chloride 93 L (96-109) mmol/L Carbon Dioxide 35.5 H (21.6-31.8) mmol/L BUN 49.0 H (9.0-27.0) mg/dL Est GFR (CKD-EPI)NonAf 55.8 L (60.0-200.0) BUN/Creatinine Ratio 49.00 H (12.00-20.00) Ratio Glucose 148 H (70-110) mg/dL POC Glucose (mg/dL) 136 H (75-99) mg/dL Calcium 8.3 L (8.7-10.3) mg/dL Total Bilirubin 1.3 H (0.2-1.2) mg/dL AST 46 H (13-35) U/L ALT 123 H (8-44) U/L Alkaline Phosphatase 165 H (41-126) U/L Total Protein 5.5 L (6.2-8.2) g/dL Albumin 2.90 L (3.80-4.90) g/dL Albumin/Globulin Ratio 1.12 L (1.60-3.17) g/dL Assessment and Plan Assessment: 1 acute hypoxic respiratory failure secondary to acute Covid pneumonitis with worsening symptoms. Possible underlying bacterial pneumonia Consult with pulmonary medicine. Prednisone switch to Solu-Medrol 60 every 6, convalescent plasma, Augmentin, vitamin C, vitamin D, colchicine, oxygen support, lovenox 40 mg by mouth daily Continue Bumex 1 mg IV twice a day and zaroxyln increased to 5 mg every day from Thursday and Thursday. Continue Tessalon Perles, can stop antibiotic and probably Decadron will be down to 4 mg one a day for one more week and then she should be off. 2 acute Covid pneumonitis with worsening symptoms. Continue as in #1. 3 severe hypoxia: Most likely secondary to Covid 19 pneumonitis, continue patient on higher flow to continue current management. COPD continue albuterol inhaler. Continue O2 at 5 L patient should be able to go to subacute rehab this dose. 4. Paroxysmal atrial fibrillation, unable to tolerate anticoagulation secondary to acute GI bleed, continue metoprolol 12.5 mg twice daily and flecainide 50 mg twice a day. 5 pericardial effusion: Minimum amount pericardial effusion was found on echo does not require any special attention continue diuretics. 6 chronic diastolic heart failure. Continue Bumex 1 mg twice brandon IV y, Zaroxolyn 5 mg daily Lopressor. Patient still been treated for restrictive heart disease with diuretics and current management. 7 peptic ulcer disease and GI prophylaxis: Continue patient on pantoprazole 40 mg twice a day 8 chronic anemia: Remain on iron supplement and multivitamins no need for transfusion. 9 mild hyponatremia: Most likely SIADH from pneumonia will continue mild gentle hydration repeat chemistry in the next 24 hours. 10 type 2 diabetes, uncontrolled with hyperglycemia secondary to steroids. Continue Accu-Chek with sliding scales coverage continue Lantus increased to 30 units twice a day units daily and still on Januvia. And scheduled NovoLog 3u with meals 11. Diarrhea. Stool cultures. C. diff negative. Diarrhea most likely secondary to Augmentin. 12 discharge planning: The patient is stable titrate PTOT and prepare for subacute rehab on Thursday or Thursday.
[2020-08-05 11:31] LABS: Glucose,Whole Blood 183 mg/dL (75-99)
--- NOTE | 2020-08-05 12:36 | P.PN ---
Subjective Progress Note Date: 08/05/20 CoVID 19 pneumonia 74-year-old female who was seen in the emergency department on 07/16/2020, at 1535. The patient presented with complaints of shortness of breath. The patient has a history of atrial fibrillation, obesity, congestive heart failure, and diabetes. She apparently was diagnosed with COVID 19 infection on July 09. Prior to being tested positive, the patient had 2 weeks of what she describes as a head cold. She started taking vitamins, and Decadron. More recently, she's been getting progressively worse as it relates to her shortness of breath, which now occurs on any activity. She does have some nausea, but denies any vomiting or diarrhea. She denies any chest pain. She denies any genitourinary complaints and lower extremity edema. Apparently her family doctor recommended that she come into the emergency room to be evaluated. A chest x-ray reveals some mild pulmonary interstitial pneumonia, and the CT angiogram revealed no evidence of any central or large pulmonary emboli, but did show extensive groundglass pulmonary interstitial infiltrates, consistent with her diagnosis of COVID19 pneumonia. Unfortunately, she is beyond the window for remdesivir. Currently, she is on 5 L nasal cannula, and her saturations are 99%. Her respiratory rate is 20, and her temperature is 97.6F. Blood pressure is good and heart rate is 71 bpm. Her current white count is 8.09, hemoglobin 10.1, hematocrit 34.7, and platelet count 137,000. Sodium is 135, potassium 4.9, chlorides 102, CO2 25, anion gap 8, BUN 17, and creatinine 0.8. D-dimer is 1.21, ferritin is 624, LDH is 1468, and C-reactive protein is 139. N-terminal proBNP was 1970. Pro-calcitonin level was 0.20. On 07/18/2020 patient seen in follow-up on medical floor, she is currently on 11 L of oxygen, she is awake and alert, she said nobody into the bed, apparently earlier she felt a little dizzy, she feels fatigued, be in no acute distress. Today's labs have been reviewed, showing white blood cell count of 18.5, hemoglobin is 10.4, his inflammatory markers are trending down, LDH is down to 943, CRP is down to 6.6, pro calcitonin level was 0.20. Continues on prophylactic dose of Lovenox, IV Decadron 6 mg daily, colchicine, and zinc On 07/19/2020 patient seen in follow-up on medical floor. She is currently up to 2 L of oxygen, her pulse ox is 91-94%, she states she feels better but she is requiring more oxygen, she states she is coughing up some phlegm. Today's chest x-ray has been reviewed showing central vascularity and interstitial increased, bilateral groundglass opacity within the lungs. And there is persistent elevation of the right hemidiaphragm. Patient seems to have increased edema in her lower extremities, she is currently on a daily dose of oral Bumex 1 mg daily, her lung sounds positive for scattered rhonchi. We will add empiric antibiotics, will afternoon dose of oral Bumex and obtain follow-up chest x-ray tomorrow. Physically she states she is feeling better, she is able to clear some phlegm. On 07/20/2020 patient seen in follow-up on medical floor, her oxygen requirements are continuously increasing, currently up to 15 L of oxygen per high flow nasal cannula and partial nonrebreather and her pulse ox is between 91-95%, afebrile. She is more dyspneic today, her lower extremities remain swollen, we did give the patient a dose of diuretics yesterday, however her neck fluid balance is very difficult to estimate. Her inflammatory markers have been reviewed, and pH is down to 780, and CRP is at 9.4, pro calcitonin level has decreased and is down to 0.12, however d-dimer has trended down and is up to 8.72, and we will adjust the dose of Lovenox to 0.5 mg/kg of body weight twice daily. Based Effexor has been reviewed showing worsening airspace disease, pneumonia and pulmonary edema. The patient is seen today 07/21/2020 in follow-up on the regular medical floor. She is currently sitting up in a chair at the bedside. Awake and alert in no acute distress. She is still requiring 15 L high flow nasal cannula along with 15 L partial rebreather mask. O2 saturations in the low 90s. She is afebrile. She has received 1 unit of convalescent plasma. White count 16.2. Hemoglobin 10.2. Lymphocytes 0.3. Sodium 138. Potassium 3.8. Creatinine 0.8. She is on antibiotics in the form of Augmentin. Continue on vitamin supplements. Remains on colchicine, IV Solu-Medrol, Lovenox. The patient is seen today 07/22/2020 in follow-up on the regular medical floor. She is awake and alert in no acute distress. Sitting up in a chair at the [facility]. She is still requiring 15 L high flow nasal cannula along with a partial nonrebreather mask to maintain O2 saturations in the low 90s. Chest x- ray continues to show bilateral airspace infiltrates however there is some interval improvement. She did receive 1 unit of convalescent plasma. D-dimer 7.56. LDH 531. C-reactive protein 3.3. She remains on colchicine, IV Solu- Medrol, Lovenox, vitamin supplements, Augmentin. The patient is seen today 07/29/2020 in follow-up on the regular medical floor. She is currently sitting up in a chair at the bedside. Awake and alert in no acute distress. She is down to 10 L high flow nasal cannula O2 saturation 97%. She's afebrile. Hemodynamically stable. Chest x-ray shows persistent interstitial infiltrates. Stable compared to previous. She has received 2 units of convalescent plasma. Blood cultures revealed no growth. Sputum cult ure positive for Vianey. Blood glucose 194. She remains on bronchodilators, IV Solu-Medrol, Lovenox, Colcrys, Protonix, vitamin supplements. IV Bumex. The patient is seen today 08/03/2020 in follow-up on the regular medical floor. She is currently sitting up at the bedside. Awake and alert in no acute distress. She is currently on 10 L high flow nasal cannula and maintaining O2 saturations in the 90s. This is been dialed down to 6 L and currently 96%. She's afebrile. D-dimer 1.21. Glucose 221. She is improved on Bumex 1 mg IV push every 12 hours. Remains on vitamin supplements, IV Solu-Medrol and colchicine. Antibiotics in the form of Zosyn. The patient is seen today 08/04/2020 in follow-up on the regular medical floor. She is currently resting in bed. Awake and alert in no acute distress. Remains on 6 L high flow nasal cannula with O2 saturation in the mid 90s. She is afebrile. Blood glucose 301. Remains on IV Solu-Medrol, bronchodilators, colchicine, Lovenox, vitamin supplements. Antibiotics in the form of Zosyn. Remains on Bumex and Zaroxolyn. Echocardiogram pending. On 08/05/2020 the patient is denying having any new complaints. She is still stable compared to yesterday on oxygen 6 L per minute nasal cannula. She remains on a combination of bronchodilators, IV Solu-Medrol, colchicine and Lovenox. She is also on empiric antibiotic coverage with IV Zosyn.The blood work showed a sodium 138 with a potassium level of 3.3 and AVN of 49 with a creatinine of 1.0. The liver function tests showed an AST of 46, ALT of 123 and alkaline phosphatase of 165. The patient's hemoglobin level is at 11.1. Repeat chest x-ray from today showed progression of mixed interstitial and alveolar infiltrates. This may be also related to poor respiratory efforts. The echocardiogram showed a preserved LV function with an ejection fraction of 5055% and the patient severe concentric LVH without any valvular abnormalities. Objective - Vital Signs Vital signs: Vital Signs Temp 97.4 F L 08/05/20 09:52 Pulse 75 08/05/20 09:52 Resp 18 08/05/20 09:52 BP 113/54 08/05/20 09:52 Pulse Ox 92 L 08/05/20 09:52 Intake & Output 08/04/20 08/05/20 08/05/20 18:59 06:59 18:59 Intake Total 1200 Output Total 1300 800 Balance -100 -800 Weight 127 kg Intake: Oral 1200 Output: Urine 1300 800 Other: Voiding Method Bedpan Bedpan Bedpan External Catheter External Catheter External Catheter - Exam GENERAL EXAM: Alert, very pleasant, obese 75-year-old female patient 6 L of high flow oxygen, in no acute distress HEAD: Normocephalic/atraumatic. EYES: Normal reaction of pupils, equal size. Conjunctiva pink, sclera white. NOSE: Clear with pink turbinates. THROAT: No erythema or exudates. NECK: No masses, no JVD, no thyroid enlargement, no adenopathy. CHEST: No chest wall deformity. Symmetrical expansion. LUNGS: Equal air entry with bilateral scattered rhonchi CVS: Regular rate and rhythm, normal S1 and S2, no gallops, no murmurs, no rubs ABDOMEN: Soft, nontender. No hepatosplenomegaly, normal bowel sounds, no guarding or rigidity. EXTREMITIES: No clubbing, no edema, no cyanosis, 2+ pulses and upper and lower extremities. MUSCULOSKELETAL: Muscle strength and tone normal. SPINE: No scoliosis or deformity SKIN: No rashes CENTRAL NERVOUS SYSTEM: No focal deficits, tone is normal in all 4 extremities. PSYCHIATRIC: Alert and oriented -3. Appropriate affect. Intact judgment and insight. - Labs CBC & Chem 7: 08/05/20 05:26 08/05/20 05:26 Labs: Abnormal Lab Results - Last 24 Hours (Table) 08/04/20 08/04/20 08/05/20 Range/Units 16:52 20:09 05:26 WBC 14.52 H (4.50-10.00) X 10*3/uL Hgb 11.1 L (12.0-15.0) g/dL MCV 77.5 L (80.0-97.0) fL MCH 22.3 L (27.0-32.0) pg MCHC 28.8 L (32.0-37.0) g/dL RDW 21.1 H (11.5-14.5) % Potassium (3.5-5.5) mmol/L Chloride (96-109) mmol/L Carbon Dioxide (21.6-31.8) mmol/L BUN (9.0-27.0) mg/dL Est GFR (CKD-EPI)NonAf (60.0-200.0) BUN/Creatinine Ratio (12.00-20.00) Ratio Glucose (70-110) mg/dL POC Glucose (mg/dL) 273 H 294 H (75-99) mg/dL Calcium (8.7-10.3) mg/dL Total Bilirubin (0.2-1.2) mg/dL AST (13-35) U/L ALT (8-44) U/L Alkaline Phosphatase (41-126) U/L Total Protein (6.2-8.2) g/dL Albumin (3.80-4.90) g/dL Albumin/Globulin Ratio (1.60-3.17) g/dL 02/21/21 02/21/21 02/21/21 Range/Units 05:26 07:18 11:29 WBC (4.50-10.00) X 10*3/uL Hgb (12.0-15.0) g/dL MCV (80.0-97.0) fL MCH (27.0-32.0) pg MCHC (32.0-37.0) g/dL RDW (11.5-14.5) % Potassium 3.3 L (3.5-5.5) mmol/L Chloride 93 L (96-109) mmol/L Carbon Dioxide 35.5 H (21.6-31.8) mmol/L BUN 49.0 H (9.0-27.0) mg/dL Est GFR (CKD-EPI)NonAf 55.8 L (60.0-200.0) BUN/Creatinine Ratio 49.00 H (12.00-20.00) Ratio Glucose 148 H (70-110) mg/dL POC Glucose (mg/dL) 136 H 183 H (75-99) mg/dL Calcium 8.3 L (8.7-10.3) mg/dL Total Bilirubin 1.3 H (0.2-1.2) mg/dL AST 46 H (13-35) U/L ALT 123 H (8-44) U/L Alkaline Phosphatase 165 H (41-126) U/L Total Protein 5.5 L (6.2-8.2) g/dL Albumin 2.90 L (3.80-4.90) g/dL Albumin/Globulin Ratio 1.12 L (1.60-3.17) g/dL Assessment and Plan Plan: 1 Acute hypoxemic respiratory failure secondary to COVID 19 pneumonia. Currently on 6 L high flow nasal cannula 2 History of diabetes mellitus. 3 History of atrial fibrillation. 4 History of congestive heart failure. 5 History of osteoarthritis. 6 History of chronic back pain. 7 Status post lap band surgery for obesity. 8 History of deafness. Plan: Continue Bumex, Zaroxolyn, and may need to The Diuretics As of Tomorrow As the Patient Has Been Diuresed Adequately for Now. Continue Zosyn, IV Solu-Medrol, bronchodilators Remains on colchicine, Lovenox Echocardiogram revealed preserved LV function with concentric LVH and no evidence of any valvular heart disease Titrate down the FiO2 as tolerated Follow-up chest x-ray from today shows some mixed interstitial and alveolar pattern consistent with Covid 19 DO NOT RESUSCITATE/DO NOT INTUBATE CODE STATUS We will continue to follow
[2020-08-05 16:38] LABS: Glucose,Whole Blood 161 mg/dL (75-99)
[2020-08-05 20:11] LABS: Glucose,Whole Blood 283 mg/dL (75-99)
[2020-08-05] MEDS: LINAGLIPTIN 5 MG TABLET PO SCH (20:29)
[2020-08-05] MEDS: MELATONIN 3 MG TABLET PO SCH (20:29)
[2020-08-06] MEDS: PIPERACILLIN-TAZOBACTAM 3.375 GM in SODIUM CHLORIDE 0.9% 100 ML IVPB SCH ×3 (03:00→21:26)
[2020-08-06] MEDS: Acetaminophen-Codeine 300-30mg TAB PO PRN (04:34)
[2020-08-06] MEDS: methylPREDNISolone SOD SUCCI 125 MG/2 ML VIAL IV SCH ×4 (05:28→23:06)
[2020-08-06 07:14] LABS: Glucose,Whole Blood 280 mg/dL (75-99)
[2020-08-06] MEDS: CHOLECALCIFEROL 25 MCG (1000 IU) TABLET PO SCH (07:25)
[2020-08-06] MEDS: BENZONATATE 100 MG CAP PO SCH ×3 (07:25→21:28)
[2020-08-06] MEDS: ASCORBIC ACID 500 MG TAB PO SCH (07:26)
[2020-08-06] MEDS: ZINC SULFATE 220 MG CAP PO SCH (07:26)
[2020-08-06] MEDS: PANTOPRAZOLE 40 MG TABLET PO SCH ×2 (07:26→21:28)
[2020-08-06] MEDS: POTASSIUM CHLORIDE ER 20 MEQ TAB.ER PO SCH (07:27)
[2020-08-06] MEDS: INSULIN DETEMIR (LEVEMIR) 100 UNIT/ML SYR SQ SCH ×2 (07:27→21:27)
[2020-08-06] MEDS: METOPROLOL TARTRATE 12.5 MG TAB PO SCH (07:27)
[2020-08-06] MEDS: ENOXAPARIN 40 MG/0.4 ML SYRINGE SQ SCH (07:27)
[2020-08-06] MEDS: BUMETANIDE 0.25 MG/ML 4 ML VIAL IVP SCH ×2 (07:28→21:26)
[2020-08-06] MEDS: INSULIN ASPART (NovoLOG) 100 UNIT/ML VIAL SQ SCH ×7 (07:29→21:27)
[2020-08-06] MEDS: COLCHICINE 0.6 MG EACH PO SCH (07:29)
[2020-08-06] MEDS: FLECAINIDE 50 MG TAB PO SCH ×2 (07:30→21:27)
[2020-08-06] MEDS: metOLazone 5 MG TAB PO SCH (07:30)
[2020-08-06] MEDS: OXYMETAZOLINE 0.05% NASL SPRAY 1 SPRAY BOTTLE NASAL SCH ×2 (07:40→21:28)
[2020-08-06] MEDS: MAG HYDROX/AL HYDROX/SIMETH 30 ML, LIDOCAINE VISCOUS 30 ML, NYSTATIN 100,000 UNIT/ML SU... PO SCH ×9 (07:41→21:28)
[2020-08-06] MEDS: CHOLESTYRAMINE (WITH SUGAR) 4 GM PACKET PO SCH ×2 (07:51→17:14)
[2020-08-06 09:50] LABS: Glucose,Whole Blood 397 mg/dL (75-99)
--- NOTE | 2020-08-06 10:34 | P.PN ---
Subjective Progress Note Date: 08/06/20 Principal diagnosis: Acute respiratory failure, acute Covid 19 pneumonitis, severe hypoxia, worsening fluid overload, atherosclerotic heart disease, diastolic heart failure, A. fib with RVR, type 2 diabetes. 74-year-old morbidly obese female one of my office patient with past medical history of A. fib with RVR, history of acute gastrointestinal bleed with anemia, history of type 2 diabetes, history of obstructive sleep apnea, mild reactive airway/COPD and mild diastolic congestive heart failure who has been seen in the office the last week for acute Covid, patient was diagnosed on the ended up going for monoclonal anti-body infusion on the . Patient called office with worsening symptoms was seen in virtual visit and was recommended to go to the hospital to be admitted. Patient has been having worsening dyspnea and shortness of breath along with severe hypoxia worsening persistent cough productive of phlegm along with mild twinges of blood. Patient was seen at the emergency department her pulse ox was in the 80 percentile with a few breathing treatment along with 3 L of O2 her pulse ox was increased to the low 90. Patient chest x-ray showed severe interstitial pneumonitis. Her d-dimer was elevated and ended up going for CTA showed extensive ground glass pulmonary interstitial edema could be related to RDS no pleural effusion found at the time. Patient was started on steroids along with updraft treatment O2 will consult pulmonary admit patient to the hospital. 2/2: The patient states that she is feeling much better today. She states that she did not sleep well last night. She is found sitting up in recliner and appears to be comfortable and in no acute distress. She has been afebrile, heart rate 72, blood pressure 160/83, pulse ox 92-98% on 5 L nasal cannula. Consult in place from pulmonary medicine. Blood sugars are running in the 200s. WBC 8, hemoglobin 10.1. Repeat lactic acid 1.7. IV fluids will be discontinued. Patient is on her home dose of Bumex. 2/3: Patient has been afebrile, heart rate 79, blood pressure 162/69, pulse ox 93% on 10 L nasal cannula. Patient complains of shortness of breath and feeling cold. She continues to cough. WBC is 18.5, hemoglobin 10.4, electrolytes normal. Creatinine 0.9. Total bilirubin 0.9, AST 88, ALT 44, alkaline phosphatase 143, LDH 943, C reactive protein 6.6. Overall, inflammatory markers are improving. Patient has been seen by pulmonary medicine and is outside of th e window for Remdesivir treatment. Colchicine was added 07/19:tates that she was unable to sleep all night. She was on a nonrebreather and she felt she had a panic attack. She states that she is normally claustrophobic. She is currently seen on 15 L with pulse ox of 91%. She appears to be comfortable at rest. She is complaining of dark brown sputum production. She is also having mild nosebleed with dried blood only. Blood sugars are running between 257-300. D-dimer 8.72. LDH and CRP are pending. Patient has been afebrile, heart rate 82, blood pressure 144/51. She will probably not be ready for discharge until Thursday. 07/20: Patient has developed increasing shortness of breath overnight. She is now requiring high flow nasal cannula and nonrebreather with pulse ox of 91-95%. She has been afebrile, heart rate 77, blood pressure 178/79. Blood sugars are running between 132 and 261. Convalescent plasma has been ordered by pulmonary medicine today. Steroids have been changed to Solu-Medrol 60 mg IV every 6 hours. Lovenox increased to 70 mg subcu twice daily. Antibiotics in the form of Augmentin. 07/21: Patient states that she is feeling better compared to yesterday. She continues to be on 15 L high flow not nasal cannula and nonrebreather. We'll continue to attempt to wean. Receiving Bumex 2 mg IV. Continues to have lower extremity swelling bilaterally. Patient received 2 units of convalescent plasma. She was complaining of dryness to bilateral nares. Flonase added. Patient remains afebrile, pulse rate 56, blood pressure 167/73, pulse ox 94% on nonrebreather and high flow oxygen. Discussed with patient's CODE STATUS. Patient states that she does not want to be intubated or have CPR performed. We will change her CODE STATUS to no code. 07/22: Patient is found sitting up in chair continue to utilize 15 L of high flow oxygen be significantly cannula nonrebreather pulse oxing 98%. Patient states that she is feeling better able to breathe easier. She has been having diarrhea for the past few days 3-4 episodes yesterday and only one today. Patient denies any abdominal discomfort or blood in stool. She is currently on Augmentin. We will do stool cultures including C. diff. 07/23: Patient remains on high flow nasal cannula 15 L with nonrebreather at her bedside. She is pulse oxing 91 and 94%. She's been afebrile, heart rate in the 70s, blood pressure 123/74. Blood sugars have been between 193 and 339. Anticipate need for oxygen at home. 07/24: Patient is on oxygen at 15 L high flow nasal cannula with pulse ox of 95%. She has been afebrile, heart rate 74, blood pressure 135/75. WBC 9.8, hemoglobin 10.3, platelet count 95. Sodium 136, potassium 3. former be replaced. BUN 35 and creatinine 1. Blood sugars running in the 200s. AST 37, ALT 48. Anticipate that the patient will require home oxygen at the time of discharge. 07/25: Pulse ox is 93% on 15 L high flow nasal cannula and partial rebreather. She's been afebrile, heart rate 89, blood pressure 127/74. Blood sugars running between 128 and 262. Repeat chest x-ray reveals stable findings. Correlate for pneumonia. Patient has been maintained on Augmentin, colchicine, Lovenox, IV Solu-Medrol and supplements. We'll order one additional dose of Bumex this afternoon. 07/26: Patient continues to have cough with hemoptysis, she has shortness of breath with minimal activity. Pulse ox is 91-95% on 15 L high flow nasal cannula. We will add in Tessalon sherwin. She continues to have thrush for which she is on Diflucan. Bumex increased to 2 mg IV push twice daily. She has been afebrile, heart rate 77, blood pressure 143/68. Repeat blood work reveals WBC 9, hemoglobin 11.2, platelet count 87. Sodium 136, potassium 3.7, CO2 34, BUN 44 and creatinine 0.8. Blood sugars are running 186-237. AST at 73, ALT 73. Repeat LDH 732. C-reactive protein less than 5. Patient will continue treatment in the hospital until oxygenation is improved and she is down to 5 or 6 L nasal cannula. 07/27: Patient is pulse oxing 91-95% on 15 L high flow nasal cannula. She has been afebrile, heart rate 80, blood pressure 139/81. Blood sugars are running between 163 and 246. Patient is continued on IV Solu-Medrol, supplements, Lovenox. 07/28: Patient has been diuresing very well, she has significant weight loss, per patient she has now lost 45 pounds for the past 2 weeks, shortness breath is also much better, pulse oximetry is now are between 90-96%, 11 L nasal cannula, vital signs stable, no fever no chills, no diarrhea, decreas Bumex now to 2 mg daily, she has dyspnea on exertion, minimal conversational dyspnea however this has improved. No lightheadedness no falls 07/29 patient feels not somewhat worse, she seems to slightly be better, has lost 2 more pounds, still diuresing at nighttime, complains of being tired or sleepy during the day, not sleeping well at night. Appetite is much better, no nausea no respiratory events, still 8 L nasal cannula 91%, still has anasarca mainly in the legs, resolved edema in the upper extremities , start melatonin for sleep hygiene latter day, on Zaroxolyn Thursday 2.5, still on Solu-Medrol 60 mg every 6 hours, Bumex at 2 mg IV daily. Potassium at 3.4, being replaced 07/30: Blood sugars are in the low 200s, Levemir will be increased to 50 units daily which will start tomorrow. She is currently on Solu-Medrol 60 mg IV every 6 hours. Patient has been afebrile, heart rate 75, blood pressure 108/56. P ulse ox is 91-94% on 7 L high flow nasal cannula which is an improvement over the weekend. Patient does desaturate with exertion. She has been continued onIV Bumex 2 mg daily, in addition to Zaroxolyn 2.5 mg on Thursday and Thursday. She is diuresing, she is in -2.5 L fluid balance over the last 24 hours. Lower extremity edema is improved. Her stool culture was positive for Vianey albicans, and so was her sputum culture. She is on Diflucan. Her last chest x- ray was yesterday showing persistent interstitial infiltrates. Afrin spray added. 07/31 patient examined bedside. Shortness of breath is improved currently on 4- 1/2 L of oxygen saturating well at 93-95%. The patient's breathing is better. Sinus congestion is better with Afrin spray. Continue Bumex at 2 mg IV daily. Metolazone increased to 2.5 mg daily from Thursday and Thursday. Solu- Medrol switched to prednisone 30 mg by mouth daily. Blood sugar remains to be high Levemir increased to 30 twice a day 08/02 patient examined bedside. Shortness of breath is worsened since yesterday patient is currently on 15 L high flow oxygen. Patient switched to Solu-Medrol 60 every 6 hours. CTA ordered to rule out pulmonary embolism but was negative for PE patient continues remain on Bumex in addition to Zaroxolyn. 08/03 patient examined bedside. Appears comfortable. She is down trended on oxygen need from 15 L to 6 L nasal cannula. Blood sugar appears to be high with the increase in steroids. Continue Solu-Medrol at 60 every 6. Patient initiated on Zosyn by Dr. Ward. Continue Bumex 1 mg IV every 12 in addition to Zaroxolyn. Zaroxolyn increased to 5 mg daily Continue to monitor patient's vitals continue colchicine Protonix 40 twice a day 08/04: Patient is doing better yesterday her oxygen was down to 6 L but the blood to have low-grade temperature review of her chest CAT scan showed some consolidation area around the bronchial tube with scarring from code 19 also shows slight pericardial effusion, echocardiogram will be done today, continue diuretics and be more aggressive with furosemide on the short on the long run. Meanwhile try to decrease her O2 to be under 6 L and hopefully prepare for discharge this week one of the half-way with higher flow to at least between 5 and 6 L for the next 2-3 weeks. 08/05: Patient remain on oxygen require around 5 L nasal cannula, decreased cough, no fever or chills. Echocardiogram result came back with very small amount of pericardial effusion no decompression. Patient is not having any fever or chills. Patient is having significant constipation and plan for discharge tomorrow patient wants to go to subacute rehab most [facility] to [facility]. 08/06: Patient is having more shortness of breath along with nausea and more GI symptoms morning not clear etiology her oxygen level dropped down she is up to 7 L today try to keep pulse ox above 92 percentile, EKGs on order CK and troponin will be done along with BNP and patient will be going for CTA to exclude any possibility of pulmonary embolism at this point. Patient is having mild anxiety as well we can use small dose of benzodiazepine. Her discharge planning will be delayed at least the next 24 hours until this is better until make sure from cardiology and pulmonary standpoint she stable. Objective - Vital Signs Vital signs: Vital Signs Temp 97.6 F 08/06/20 05:50 Pulse 89 08/06/20 09:51 Resp 20 08/06/20 09:51 BP 113/74 08/06/20 09:51 Pulse Ox 80 L 08/06/20 09:51 Intake & Output 08/05/20 08/06/20 08/06/20 18:59 06:59 18:59 Intake Total 1400 300 Output Total 1100 1100 Balance 300 -800 Weight 127.5 kg Intake: Oral 1400 300 Output: Urine 1100 1100 Other: Voiding Method Bedpan Bedpan Bedpan External Catheter External Catheter External Catheter # Voids 2 - Exam REVI EW OF SYSTEMS CONSTITUTIONAL: Well-developed with no respiratory distress at rest. Denies fevers. Denies chills. EYES: No icterus sclerae, no conjunctivitis. EARS, NOSE, MOUTH, THROAT, and FACE: Reports nasal congestion. No sore throat, lymphadenopathy, carotid bruits or deformity. RESPIRATORY: Moderate dyspnea and shortness of breath and cough. Dyspnea with exertion. Dyspnea at rest. CARDIOVASCULAR: Positive PND orthopnea . Denies palpitation with no angina. GASTROINTESTINAL: No Abd pain, Nausea or vomiting, no Diarrhea or constipation, No GI Bleed, no distention or masses. GENITOURINARY: Negative for Hematuria or UTI, no kidney stones. INTEGUMENT/BREAST: Negative for any muscular injury with mild osteoarthritis. Chronic edema. HEMATOLOGIC/LYMPHATIC: Negative for bleed or purpura. MUSCULOSKELTAL: Negative for Myalgia or arthralgia. Significant arthralgia and myalgia. NEURLOGICAL: No LOC, Sz or syncope, blurred vision dizziness or abnormality.. BEHAVIORAL/PSYCH: Negative. ENDOCRLavina blood sugars PHYSICAL EXAMINATION General Appearance: Alert, cooperative, morbidly obese in no respiratory distress. Patient is resting comfortably in chair. Neck HEENT: Supple, no lymphadenopathy, no thyroid enlargement, no carotid bruits. Lungs: Decreased breath some bilateral expiratory wheezes improved . Positive mild accessory muscle usage Chest Wall: Decrease expansion with deep inspiration no tenderness and no deformity was found on exam, no costochondral pain or discomfort. Heart: Regular rate and rhythm, S1, S2 positive systolic murmur with S3. Back: Symmetric, no curvature, ROM normal, no CVA tenderness. Abdomen: Soft, non-tender, bowel sounds active all four quadrants, no masses, no organomegaly. Extremities: 1+ edema and decreased pulses bilaterally. Pulses: 1+ and symmetric. Skin: Skin color, texture, tugor normal, no rashes or lesions. Neurologic: Alert oriented x3 cranial nerves II through XII intact, no motor def icit, no abnormal balance or gait. - Labs CBC & Chem 7: 08/05/20 05:26 08/05/20 05:26 Labs: Abnormal Lab Results - Last 24 Hours (Table) 08/05/20 08/05/20 08/05/20 Range/Units 11:29 16:34 20:09 POC Glucose (mg/dL) 183 H 161 H 283 H (75-99) mg/dL 08/06/20 08/06/20 Range/Units 07:11 09:47 POC Glucose (mg/dL) 280 H 397 H (75-99) mg/dL Assessment and Plan Assessment: 1 acute hypoxic respiratory failure secondary to acute Covid pneumonitis with worsening symptoms. Possible underlying bacterial pneumonia Consult with pulmonary medicine. Prednisone switch to Solu-Medrol 60 every 6, convalescent plasma, Augmentin, vitamin C, vitamin D, colchicine, oxygen support, lovenox 40 mg by mouth daily Continue Bumex 1 mg IV twice a day and zaroxyln increased to 5 mg every day from Thursday and Thursday. Continue Tessalon Perles, can stop antibiotic and probably Decadron will be down to 4 mg one a day for one more week and then she should be off. 2 acute Covid pneumonitis with worsening symptoms. Continue as in #1. 3 severe hypoxia: Most likely secondary to Covid 19 pneumonitis, continue patient on higher flow to continue current management. COPD continue albuterol inhaler. Continue O2 at 5 L patient should be able to go to subacute rehab this dose. 4 acute episode of pressure and discomfort with nausea: Try to exclude the possibility of cardiac event CK with troponin will be done patient will be going for CTA today and will be seen by pulmonary later on to exclude any complication related to Covid 19 currently with her clotting or any arrhythmia type. Her discharge will be delayed at least the next 24 hours of her symptoms are better 5. Paroxysmal atrial fibrillation, unable to tolerate anticoagulation secondary to acute GI bleed, continue metoprolol 12.5 mg twice daily and flecainide 50 mg twice a day. 6 chronic diastolic heart failure. Continue Bumex 1 mg twice brandon IV y, Zaroxolyn 5 mg daily Lopressor. Patient still been treated for restrictive heart disease with diuretics and current management. 7 peptic ulcer disease and GI prophylaxis: Continue patient on pantoprazole 40 mg twice a day 8 chronic anemia: Remain on iron supplement and multivitamins no need for transfusion. 9 mild hyponatremia: Most likely SIADH from pneumonia will continue mild gentle hydration repeat chemistry in the next 24 hours. 10 type 2 diabetes, uncontrolled with hyperglycemia secondary to steroids. Continue Accu-Chek with sliding scales coverage continue Lantus increased to 30 units twice a day units daily and still on Januvia. And scheduled NovoLog 3u with meals 11. Diarrhea. Stool cultures. C. diff negative. Diarrhea most likely secondary to Augmentin. 12 discharge planning: Was delayed today based on the current complaint with the GI symptom along with the shortness of breath and hypoxia with pulse ox is low she needed 7 L of O2 keep pulse ox above 90 percentile will delay her discharge at least next 24 hours patient be going for CTA today.
[2020-08-06] MEDS: ALBUTEROL HFA INHALER INHALATION PRN (11:28)
[2020-08-06 11:43] LABS: Glucose,Whole Blood 324 mg/dL (75-99)
[2020-08-06 12:27] LABS: Creatine Kinase MB 6.2 ng/mL (0.0-2.4)
[2020-08-06 12:39] LABS: Troponin I 0.258 ng/mL (0.000-0.034)
--- NOTE | 2020-08-06 13:39 | CT ---
EXAMINATION TYPE: CT chest angio for PE DATE OF EXAM: 08/06/2020 COMPARISON: 08/01/2020 HISTORY: 75-year-old female SOB, COVID Positive TECHNIQUE: Contiguous axial scanning of the chest performed with IV Contrast, patient injected with 7 1 mL of Isovue 370. Coronal/sagittal MIP reconstructions performed. CT DLP: 908 mGycm Automated exposure control for dose reduction was used. FINDINGS: Heart borderline enlarged without pericardial effusion. Ectatic ascending aorta 3.8 cm in dimension arch vessel branching anatomy. No thoracic lymphadenopathy by CT size criteria. Large caliber to the main right and left pulmonary arteries measuring 2.8 and 2.7 cm, respectively, s uggesting underlying pulmonary arterial hypertension. There is diffuse breathing motion artifact limiting the evaluation. No large central or definite loba r branch embolus. Many of the segmental and more distal arterial branches are nondiagnostic. Multifocal groundglass opacities persist, without significant change from 08/01/2020 by with some impr ovement as compared to the 07/16/2020 prior. Dependent atelectasis. No pleural effusion. Small hiatal hernia. Lap band device in place. Bones: DISH within the mid and lower thoracic spine. IMPRESSION: 1. BREATHING MOTION ARTIFACT. NO DEFINITE LARGE CENTRAL LOBAR BRANCH EMBOLUS. MOST OF THE SEGMENTAL A ND MORE DISTAL ARTERIAL BRANCHES ARE NONDIAGNOSTIC AND EMBOLI IN THESE LOCATIONS CANNOT BE EXCLUDED O N THE BASIS OF THIS EXAM. 2. CONTINUED MULTIFOCAL GROUNDGLASS INFILTRATES, OVERALL SIMILAR FROM 08/01/2020 BUT HAVING SHOWN SOME IMPROVEMENT COMPARED TO 121. 3. FINDINGS SUGGEST UNDERLYING PULMONARY ARTERIAL HYPERTENSION.
--- NOTE | 2020-08-06 17:05 | P.PN ---
Subjective Progress Note Date: 08/06/20 74-year-old female who was seen in the emergency department on 07/16/2020, at 1535. The patient presented with complaints of shortness of breath. The patient has a history of atrial fibrillation, obesity, congestive heart failure, and diabetes. She apparently was diagnosed with COVID 19 infection on July 09. Prior to being tested positive, the patient had 2 weeks of what she describes as a head cold. She started taking vitamins, and Decadron. More recently, she's been getting progressively worse as it relates to her shortness of breath, which now occurs on any activity. She does have some nausea, but denies any vomiting or diarrhea. She denies any chest pain. She denies any genitourinary complaints and lower extremity edema. Apparently her family doctor recommended that she come into the emergency room to be evaluated. A chest x-ray reveals some mild pulmonary interstitial pneumonia, and the CT angiogram revealed no evidence of any central or large pulmonary emboli, but did show extensive groundglass pulmonary interstitial infiltrates, consistent with her diagnosis of COVID19 pneumonia. Unfortunately, she is beyond the window for remdesivir. Currently, she is on 5 L nasal cannula, and her saturations are 99%. Her respiratory rate is 20, and her temperature is 97.6F. Blood pressure is good and heart rate is 71 bpm. Her current white count is 8.09, hemoglobin 10.1, hematocrit 34.7, and platelet count 137,000. Sodium is 135, potassium 4.9, chlorides 102, CO2 25, anion gap 8, BUN 17, and creatinine 0.8. D-dimer is 1.21, ferritin is 624, LDH is 1468, and C-reactive protein is 139. N-terminal proBNP was 1970. Pro-calcitonin level was 0.20. On 07/18/2020 patient seen in follow-up on medical floor, she is currently on 11 L of oxygen, she is awake and alert, she said nobody into the bed, apparently earlier she felt a little dizzy, she feels fatigued, be in no acute distress. Today's labs have been reviewed, showing white blood cell count of 18.5, hemoglobin is 10.4, his inflammatory markers are trending down, LDH is down to 943, CRP is down to 6.6, pro calcitonin level was 0.20. Continues on prophylactic dose of Lovenox, IV Decadron 6 mg daily, colchicine, and zinc On 07/19/2020 patient seen in follow-up on medical floor. She is currently up to 2 L of oxygen, her pulse ox is 91-94%, she states she feels better but she is requiring more oxygen, she states she is coughing up some phlegm. Today's chest x-ray has been reviewed showing central vascularity and interstitial increased, bilateral groundglass opacity within the lungs. And there is persistent elevation of the right hemidiaphragm. Patient seems to have increased edema in her lower extremities, she is currently on a daily dose of oral Bumex 1 mg daily, her lung sounds positive for scattered rhonchi. We will add empiric antibiotics, will afternoon dose of oral Bumex and obtain follow-up chest x-ray tomorrow. Physically she states she is feeling better, she is able to clear some phlegm. On 07/20/2020 patient seen in follow-up on medical floor, her oxygen requirements are continuously increasing, currently up to 15 L of oxygen per high flow nasal cannula and partial nonrebreather and her pulse ox is between 91-95%, afebrile. She is more dyspneic today, her lower extremities remain swollen, we did give the patient a dose of diuretics yesterday, however her neck fluid balance is very difficult to estimate. Her inflammatory markers have been reviewed, and pH is down to 780, and CRP is at 9.4, pro calcitonin level has decreased and is down to 0.12, however d-dimer has trended down and is up to 8.72, and we will adjust the dose of Lovenox to 0.5 mg/kg of body weight twice daily. Based Effexor has been reviewed showing worsening airspace disease, pneumonia and pulmonary edema. On 07/30/2020 patient seen in follow-up on medical floor, she is awake and alert, in no acute distress, currently sitting up in a chair, her pulse ox on 7 L of oxygen is 91%, patient does desaturate with exertion. She is breathing comfortably, no cough, no complaints of chest discomfort, she's been afebrile, hemodynamically she's been stable. Her inflammatory markers are improving, her last d-dimer on 07/26/2020 was 2.81. She continues on IV steroids 60 mg every 6 hours, she is on diuretics, IV Bumex 2 mg daily, in addition to Zaroxolyn 2.5 mg on Thursday and Thursday. She is diuresing, she is in -2.5 L fluid balance over the last 24 hours. Her stool culture was positive for Vianey albicans, and so was her sputum culture. She is on Diflucan. Her last chest x-ray was yesterday showing persistent interstitial infiltrates. No new labs today, no new chest x- ray, clinically patient has been stable, no complaints of nausea, vomiting or diarrhea. Lower extremity edema is improving. On 07/31/2020 patient seen in follow-up. Patient is on 7 L of oxygen, we dropped the FiO2 down to 4-1/2 L, and her pulse ox is maintained at 93-94%, patient still does have exertional dyspnea, but overall she is improving, she is awake and alert, oriented 3, no altered mentation, increased questions appropriately, she's had no fever or chills, vital signs have been stable, no worsening dyspnea, no cough or chest pain. Follow-up chest x-ray today shows bilateral areas of increased interstitial markings and patchy infiltrates with small effusions stable in appearance. Patient has been on high-dose IV steroids with Solu-Medrol 60 mg every 6 hours, she is on prophylactic dose of Lovenox 40 mg daily, she remains on IV Bumex at 2 mg daily, she is on bronchodilators, she is on oral Diflucan. She's had no acute events overnight. Today's labs have been reviewed, inflammatory markers are improving. No complaints of nausea vomiting or diarrhea. Patient is tolerating oral intake. On 08/01/2020 patient seen in follow-up. Patient is more dyspneic today, she is in the 7-8 L of oxygen per simple nasal cannula, in her pulse ox is only around 80-82%. She was placed on partial rebreather mask. Lung sounds reveal some minimal crackles, she has no cough or chest pain, no altered mentation, no fever, blood pressure has been stable, yesterday we discontinued her IV Solu-Me drol, and placed her on oral prednisone 30 mg. Continues on prophylactic dose Lovenox, she has been on IV Bumex 2 mg daily, her neck fluid balance is difficult to estimate, however clinically she appears to be dry. Continues on colchicine, she is on vitamins including vitamin C, vitamin D, melatonin and zinc supplement. She is on oral Diflucan. In addition to Bumex she is also on Zaroxolyn 2.5 mg daily. There is a concern about possibility of pulmonary embolism related to patient's history of COVID19, and for that reason CTA chest has been ordered however the radiologist suggested pre-hydration and we'll stop the patient's IV Bumex and we'll give the patient a liter bolus On 08/02/2020 patient seen in follow-up on medical floor. She is currently on 2:15 liters per high flow nasal cannula, she easily desats with any exertion or even talking. She is dyspneic, she denies any acute distress, no complaints of chest discomfort, yesterday we obtained a CTA chest which showed no evidence of acute pulmonary embolism, and did show scattered groundglass opacities throughout the lung muñiz, nonspecific, this could be related to pulmonary edema or atypical pneumonia, linear opacities at the lung bases suggest developing pulmonary fibrosis. She was prehydrated for the CTA chest yesterday, she remains on oral dose of Bumex 1 mg daily in addition to Zaroxolyn, today's labs have been reviewed showing stable renal function with BUN of 56 and creatinine is 1.1, CO2 is 32, the rest of electrolytes are within normal limits, white blood cell count remains elevated, down slightly from yesterday, at 17.4, hemoglobin is 11.2. We'll give the patient additional diuretic. Patient is on oral prednisone 40 mg daily, which we will switch back to IV Solu-Medrol in view of worsening hypoxemia. No nausea vomiting or diarrhea. Remains on prophylactic dose of Lovenox On 9 08/06/2020 patient seen in follow-up on medical floor, she is awake and alert, currently on 7 L of oxygen with a pulse ox of 98%, seems as if when her FiO2 is attempted to be weaned down her O2 sat abruptly drops into the 80s. She's had no fever or chills, she is awake and alert, oriented 3, repeat CTA chest today showed no definite large central pulmonary embolism, there was breathing motion artifact, and continued multifocal groundglass infiltrates haven't shown some improvement compared to previous CTA chest on 08/01/2020. echoCardiogram showed EF between 50-55%, she continues on IV Bumex 1 mg every 12 hours. He continues on colchicine, prophylactic dose of Lovenox, IV steroids 60 mg every 6 hours of Solu-Medrol, empiric antibiotics in the form of Zosyn. Her sputum culture showed Vianey albicans, Culture has shown no growth, and toe culture did show Vianey albicans. Inflammatory markers were improving since admission, white count is improving Objective - Vital Signs Vital signs: Vital Signs Temp 98.1 F 08/06/20 14:00 Pulse 103 H 08/06/20 14:00 Resp 16 08/06/20 14:00 BP 105/62 08/06/20 14:00 Pulse Ox 98 08/06/20 14:00 Intake & Output 08/05/20 08/06/20 08/06/20 18:59 06:59 18:59 Intake Total 1400 400 Output Total 1100 1100 Balance 300 -700 Weight 127.5 kg Intake: Oral 1400 400 Output: Urine 1100 1100 Other: Voiding Method Bedpan Bedpan Bedpan External Catheter External Catheter External Catheter # Voids 2 - Exam GENERAL EXAM: Alert, very pleasant, 74-year-old white female on 7 L of oxygen a pulse ox of 95%, easily desaturates with any exertion or even talking HEAD: Normocephalic/atraumatic. EYES: Normal reaction of pupils, equal size. Conjunctiva pink, sclera white. NOSE: Clear with pink turbinates. THROAT: No erythema or exudates. NECK: No masses, no JVD, no thyroid enlargement, no adenopathy. CHEST: No chest wall deformity. Symmetrical expansion. LUNGS: Equal air entry with no crackles, wheeze, rhonchi or dullness. CVS: Regular rate and rhythm, normal S1 and S2, no gallops, no murmurs, no rubs ABDOMEN: Soft, nontender. No hepatosplenomegaly, normal bowel sounds, no guarding or rigidity. EXTREMITIES: No clubbing, no edema, no cyanosis, 2+ pulses and upper and lower extremities. MUSCULOSKELETAL: Muscle strength and tone normal. SPINE: No scoliosis or deformity SKIN: No rashes CENTRAL NERVOUS SYSTEM: Alert and oriented -3. No focal deficits, tone is normal in all 4 extremities. PSYCHIATRIC: Alert and oriented -3. Appropriate affect. Intact judgment and insight. - Labs CBC & Chem 7: 08/05/20 05:26 08/05/20 05:26 Labs: Abnormal Lab Results - Last 24 Hours (Table) 08/05/20 08/06/20 08/06/20 Range/Units 20:09 07:11 09:47 POC Glucose (mg/dL) 283 H 280 H 397 H (75-99) mg/dL CK-MB (CK-2) (0.0-2.4) ng/mL Troponin I (0.000-0.034) ng/mL 08/06/20 08/06/20 Range/Units 10:44 11:41 POC Glucose (mg/dL) 324 H (75-99) mg/dL CK-MB (CK-2) 6.2 H (0.0-2.4) ng/mL Troponin I 0.258 H* (0.000-0.034) ng/mL Assessment and Plan Plan: Assessment: #1. Acute hypoxemic respiratory failure secondary to COVID 19 pneumonia. Currently on 7 L per high flow nasal cannula #2. History of diabetes mellitus. #3. History of atrial fibrillation. #4. History of congestive heart failure. #5. History of osteoarthritis. #6. History of chronic back pain. #7. Status post lap band surgery for obesity. #8. History of deafness. Plan: Continue current medical treatment, continue diuretics, steroids, empiric antibiotics, central calcitonin level, CTA chest has been negative for evidence of a large central pulmonary embolism, continue prophylactic dose of Lovenox. Continue weaning FiO2, continue prophylactic antibiotics for now. We'll continue to follow I performed a history & physical examination of the patient and discussed their management with my nurse practitioner, Corrina Paz. I reviewed the nurse practitioner's note and agree with the documented findings and plan of care. Lung sounds are positive for diminished breath sounds. The findings and the impression was discussed with the patient. I attest to the documentation by the nurse practitioner. Time with Patient: Less than 30
[2020-08-06 17:09] LABS: Glucose,Whole Blood 226 mg/dL (75-99)
[2020-08-06 20:43] LABS: Glucose,Whole Blood 225 mg/dL (75-99)
[2020-08-06 20:43] LABS: Glucose,Whole Blood >600 mg/dL (75-99)
[2020-08-06] MEDS: LINAGLIPTIN 5 MG TABLET PO SCH (21:27)
[2020-08-06] MEDS: MELATONIN 3 MG TABLET PO SCH (21:28)
[2020-08-06] MEDS: ACETAMINOPHEN TAB 325 MG TAB PO PRN (21:36)
[2020-08-07] MEDS: PIPERACILLIN-TAZOBACTAM 3.375 GM in SODIUM CHLORIDE 0.9% 100 ML IVPB SCH ×2 (04:51→12:36)
[2020-08-07] MEDS: methylPREDNISolone SOD SUCCI 125 MG/2 ML VIAL IV SCH ×2 (04:52→12:38)
[2020-08-07 07:32] LABS: Glucose,Whole Blood 94 mg/dL (75-99)
[2020-08-07] MEDS: INSULIN ASPART (NovoLOG) 100 UNIT/ML VIAL SQ SCH ×7 (07:39→21:17)
[2020-08-07] MEDS: ASCORBIC ACID 500 MG TAB PO SCH (08:02)
[2020-08-07] MEDS: METOPROLOL TARTRATE 12.5 MG TAB PO SCH (08:02)
[2020-08-07] MEDS: CHOLECALCIFEROL 25 MCG (1000 IU) TABLET PO SCH (08:02)
[2020-08-07] MEDS: POTASSIUM CHLORIDE ER 20 MEQ TAB.ER PO SCH (08:02)
[2020-08-07] MEDS: ENOXAPARIN 40 MG/0.4 ML SYRINGE SQ SCH (08:02)
[2020-08-07] MEDS: ZINC SULFATE 220 MG CAP PO SCH (08:02)
[2020-08-07] MEDS: BENZONATATE 100 MG CAP PO SCH ×3 (08:02→21:18)
[2020-08-07] MEDS: metOLazone 5 MG TAB PO SCH (08:03)
[2020-08-07] MEDS: BUMETANIDE 0.25 MG/ML 4 ML VIAL IVP SCH ×3 (08:03→21:17)
[2020-08-07] MEDS: COLCHICINE 0.6 MG EACH PO SCH (08:03)
[2020-08-07] MEDS: FLECAINIDE 50 MG TAB PO SCH ×2 (08:03→21:17)
[2020-08-07] MEDS: PANTOPRAZOLE 40 MG TABLET PO SCH ×2 (08:03→21:18)
[2020-08-07] MEDS: INSULIN DETEMIR (LEVEMIR) 100 UNIT/ML SYR SQ SCH ×2 (08:04→21:18)
[2020-08-07] MEDS: CHOLESTYRAMINE (WITH SUGAR) 4 GM PACKET PO SCH ×2 (08:21→16:52)
[2020-08-07] MEDS: MAG HYDROX/AL HYDROX/SIMETH 30 ML, LIDOCAINE VISCOUS 30 ML, NYSTATIN 100,000 UNIT/ML SU... PO SCH ×12 (08:22→21:19)
[2020-08-07] MEDS: OXYMETAZOLINE 0.05% NASL SPRAY 1 SPRAY BOTTLE NASAL SCH ×2 (08:22→21:18)
[2020-08-07] MEDS: ALBUTEROL HFA INHALER INHALATION PRN (09:49)
[2020-08-07 11:50] LABS: C Reactive Protein <0.4 mg/dL (0.0-0.8); LDH 405 U/L (120-246)
[2020-08-07 11:52] LABS: Glucose,Whole Blood 223 mg/dL (75-99)
--- NOTE | 2020-08-07 15:37 | P.PN ---
Subjective Progress Note Date: 08/07/20 Principal diagnosis: Hypoxemic respiratory failure. On 9 08/06/2020 patient seen in follow-up on medical floor, she is awake and alert, currently on 7 L of oxygen with a pulse ox of 98%, seems as if when her FiO2 is attempted to be weaned down her O2 sat abruptly drops into the 80s. She's had no fever or chills, she is awake and alert, oriented 3, repeat CTA chest today showed no definite large central pulmonary embolism, there was breathing motion artifact, and continued multifocal groundglass infiltrates haven't shown some improvement compared to previous CTA chest on 08/01/2020. echoCardiogram showed EF between 50-55%, she continues on IV Bumex 1 mg every 12 hours. He continues on colchicine, prophylactic dose of Lovenox, IV steroids 60 mg every 6 hours of Solu-Medrol, empiric antibiotics in the form of Zosyn. Her sputum culture showed Vianey albicans, Culture has shown no growth, and toe culture did show Vianey albicans. Inflammatory markers were improving since admission, white count is improving Progress note dated 06/06/2021. This is a patient who's been in the hospital now for 22 days. She was admitted on July 16. Her admission diagnosis was that of COVID 19 pneumonia. Currently, the patient's on 11 L high flow nasal O2. Yesterday, she was on 7 L nasal high flow. The patient clinically is about the same. Her temperature is 98.2, heart rate is 81, respiratory rate is 16-20 breaths per minute, and her blood pressure is 90/67 with a mean of 74. A repeat CT angiogram of the chest revealed no large central pulmonary embolism. In addition, multifocal groundglass opacities have shown some improvement compared to her prior computed tomography scan done on August 01. Ejection fraction on echocardiogram is 50- 55%. She continues on colchicine, Lovenox, and corticosteroids. She is also getting Zosyn as an empiric antibiotic. Today's glucose was 223, her LDH was 405, and her C-reactive protein was less than 0.4. Her most recent pro- calcitonin level was 0.09. De-escalation and discontinuation of antibiotics should be considered. Objective - Vital Signs Vital signs: Vital Signs Temp 98.2 F 08/07/20 14:00 Pulse 81 08/07/20 14:00 Resp 16 08/07/20 14:00 BP 90/67 08/07/20 14:00 Pulse Ox 92 L 08/07/20 14:00 Intake & Output 08/06/20 08/07/20 08/07/20 18:59 06:59 18:59 Intake Total 600 100 Output Total 1100 1200 100 Balance -500 -1200 0 Weight 126.5 kg Intake: Oral 600 100 Output: Urine 1100 1100 Stool 100 100 Other: Voiding Method Bedpan Bedpan Bedpan External Catheter External Catheter External Catheter # Voids 2 - Exam No acute distress, oriented 3. The patient's on nasal O2 at 11 L/m. No conversational dyspnea or use of accessory muscles. HEENT examination is grossly unremarkable. Mucous membranes are moist. No oral lesions. Neck supple. Full range of motion. No adenopathy thyromegaly or neck vein distention. Cardiovascular examination reveals regular rhythm rate. S1-S2 normal. No S3 or S4. No discernible murmur noted. Lungs reveal mild bilateral crackles. No wheezes. A few scattered rhonchi are noted. For the most part, lung sounds are relatively normal. Abdomen soft bowel sounds are heard. No masses or tenderness. Extremities are intact. No cyanosis clubbing or edema. Skin is without rash or lesion. Neurologic examination is brief but nonfocal. - Labs CBC & Chem 7: 08/05/20 05:26 08/05/20 05:26 Labs: Abnormal Lab Results - Last 24 Hours (Table) 08/06/20 08/06/20 08/06/20 Range/Units 17:08 20:39 20:40 POC Glucose (mg/dL) 226 H >600 H 225 H (75-99) mg/dL Lactate Dehydrogenase (120-246) U/L 08/07/20 08/07/20 Range/Units 06:33 11:50 POC Glucose (mg/dL) 223 H (75-99) mg/dL Lactate Dehydrogenase 405 H (120-246) U/L Assessment and Plan Assessment: Acute hypoxemic respiratory failure secondary to COVID 19 pneumonia, currently on 11 L high flow nasal O2. History of diabetes mellitus. History of atrial fibrillation. History of congestive heart failure. History of osteoarthritis. History of chronic back pain. Status post lap band surgery for obesity. History of deafness. No evidence of pulmonary embolism on CT angiogram. Plan: Plan dated 08/07/2020. Currently, the patient is requiring more oxygen today than yesterday. Clinically she looks about the same. Most recent CT angiogram did not reveal a pulmonary embolism. Clinically, she's doing about the same. Overall prognosis remains poor. We'll follow. Additional recommendations and suggestions are forthcoming. She has received all appropriate therapies. I will reduce the Solu-Medrol dose, and discontinue the Zosyn. Additional recommendations and suggestions are forthcoming. Time with Patient: Less than 30
--- NOTE | 2020-08-07 16:50 | P.PN ---
Subjective Acute respiratory failure, acute Covid 19 pneumonitis, severe hypoxia, worsening fluid overload, atherosclerotic heart disease, diastolic heart failure, A. fib with RVR, type 2 diabetes. 74-year-old morbidly obese female one of my office patient with past medical history of A. fib with RVR, history of acute gastrointestinal bleed with anemia, history of type 2 diabetes, history of obstructive sleep apnea, mild reactive airway/COPD and mild diastolic congestive heart failure who has been seen in the office the last week for acute Covid, patient was diagnosed on the ended up going for monoclonal anti-body infusion on the . Patient called office with worsening symptoms was seen in virtual visit and was recommended to go to the hospital to be admitted. Patient has been having worsening dyspnea and shortness of breath along with severe hypoxia worsening persistent cough productive of phlegm along with mild twinges of blood. Patient was seen at the emergency department her pulse ox was in the 80 percentile with a few breathing treatment along with 3 L of O2 her pulse ox was increased to the low 90. Patient chest x-ray showed severe interstitial pneumonitis. Her d-dimer was elevated and ended up going for CTA showed exten sive ground glass pulmonary interstitial edema could be related to RDS no pleural effusion found at the time. Patient was started on steroids along with updraft treatment O2 will consult pulmonary admit patient to the hospital. 2/2: The patient states that she is feeling much better today. She states that she did not sleep well last night. She is found sitting up in recliner and appears to be comfortable and in no acute distress. She has been afebrile, heart rate 72, blood pressure 160/83, pulse ox 92-98% on 5 L nasal cannula. Consult in place from pulmonary medicine. Blood sugars are running in the 200s. WBC 8, hemoglobin 10.1. Repeat lactic acid 1.7. IV fluids will be discontinue d. Patient is on her home dose of Bumex. 2/3: Patient has been afebrile, heart rate 79, blood pressure 162/69, pulse ox 93% on 10 L nasal cannula. Patient complains of shortness of breath and feeling cold. She continues to cough. WBC is 18.5, hemoglobin 10.4, electrolytes normal. Creatinine 0.9. Total bilirubin 0.9, AST 88, ALT 44, alkaline phosphatase 143, LDH 943, C reactive protein 6.6. Overall, inflammatory markers are improving. Patient has been seen by pulmonary medicine and is outside of the window for Remdesivir treatment. Colchicine was added 07/19:tates that she was unable to sleep all night. She was on a nonrebreather and she felt she had a panic attack. She states that she is normally claustrophobic. She is currently seen on 15 L with pulse ox of 91%. She appears to be comfortable at rest. She is complaining of dark brown sputum production. She is also having mild nosebleed with dried blood only. Blood sugars are running between 257-300. D-dimer 8.72. LDH and CRP are pending. Patient has been afebrile, heart rate 82, blood pressure 144/51. She will probably not be ready for discharge until Thursday. 07/20: Patient has developed increasing shortness of breath overnight. She is now requiring high flow nasal cannula and nonrebreather with pulse ox of 91-95%. She has been afebrile, heart rate 77, blood pressure 178/79. Blood sugars are running between 132 and 261. Convalescent plasma has been ordered by pulmonary medicine today. Steroids have been changed to Solu-Medrol 60 mg IV every 6 hours. Lovenox increased to 70 mg subcu twice daily. Antibiotics in the form of Augmentin. 07/21: Patient states that she is feeling better compared to yesterday. She continues to be on 15 L high flow not nasal cannula and nonrebreather. We'll continue to attempt to wean. Receiving Bumex 2 mg IV. Continues to have lower extremity swelling bilaterally. Patient received 2 units of convalescent plasma. She was complaining of dryness to bilateral nares. Flonase added. Patient remains afebrile, pulse rate 56, blood pressure 167/73, pulse ox 94% on nonrebreather and high flow oxygen. Discussed with patient's CODE STATUS. Patient states that she does not want to be intubated or have CPR performed. We will change her CODE STATUS to no code. 07/22: Patient is found sitting up in chair continue to utilize 15 L of high flow oxygen be significantly cannula nonrebreather pulse oxing 98%. Patient states that she is feeling better able to breathe easier. She has been having diarrhea for the past few days 3-4 episodes yesterday and only one today. Patient denies any abdominal discomfort or blood in stool. She is currently on Augmentin. We will do stool cultures including C. diff. 07/23: Patient remains on high flow nasal cannula 15 L with nonrebreather at her bedside. She is pulse oxing 91 and 94%. She's been afebrile, heart rate in the 70s, blood pressure 123/74. Blood sugars have been between 193 and 339. Anticipate need for oxygen at home. 07/24: Patient is on oxygen at 15 L high flow nasal cannula with pulse ox of 95%. She has been afebrile, heart rate 74, blood pressure 135/75. WBC 9.8, hemoglobin 10.3, platelet count 95. Sodium 136, potassium 3. former be replaced. BUN 35 and creatinine 1. Blood sugars running in the 200s. AST 37, ALT 48. Anticipate that the patient will require home oxygen at the time of discharge. 07/25: Pulse ox is 93% on 15 L high flow nasal cannula and partial rebreather. She's been afebrile, heart rate 89, blood pressure 127/74. Blood sugars running between 128 and 262. Repeat chest x-ray reveals stable findings. Correlate for pneumonia. Patient has been maintained on Augmentin, colchicine, Lovenox, IV Solu-Medrol and supplements. We'll order one additional dose of Bumex this afternoon. 07/26: Patient continues to have cough with hemoptysis, she has shortness of breath with minimal activity. Pulse ox is 91-95% on 15 L high flow nasal cannula. We will add in Tessalon pearls. She continues to have thrush for which she is on Diflucan. Bumex increased to 2 mg IV push twice daily. She has been afebrile, heart rate 77, blood pressure 143/68. Repeat blood work reveals WBC 9, hemoglobin 11.2, platelet count 87. Sodium 136, potassium 3.7, CO2 34, BUN 44 and creatinine 0.8. Blood sugars are running 186-237. AST at 73, ALT 73. Repeat LDH 732. C-reactive protein less than 5. Patient will continue treatment in the hospital until oxygenation is improved and she is down to 5 or 6 L nasal cannula. 07/27: Patient is pulse oxing 91-95% on 15 L high flow nasal cannula. She has been afebrile, heart rate 80, blood pressure 139/81. Blood sugars are running between 163 and 246. Patient is continued on IV Solu-Medrol, supplements, Lovenox. 07/28: Patient has been diuresing very well, she has significant weight loss, per patient she has now lost 45 pounds for the past 2 weeks, shortness breath is also much better, pulse oximetry is now are between 90-96%, 11 L nasal cannula, vital signs stable, no fever no chills, no diarrhea, decreas Bumex now to 2 mg daily, she has dyspnea on exertion, minimal conversational dyspnea however this has improved. No lightheadedness no falls 07/29 patient feels not somewhat worse, she seems to slightly be better, has lost 2 more pounds, still diuresing at nighttime, complains of being tired or sleepy during the day, not sleeping well at night. Appetite is much better, no nausea no respiratory events, still 8 L nasal cannula 91%, still has anasarca mainly in the legs, resolved edema in the upper extremities , start melatonin for sleep hygiene confucianist, on Zaroxolyn Thursday 2.5, still on Solu-Medrol 60 mg every 6 hours, Bumex at 2 mg IV daily. Potassium at 3.4, being replaced 07/30: Blood sugars are in the low 200s, Levemir will be increased to 50 units daily which will start tomorrow. She is currently on Solu-Medrol 60 mg IV every 6 hours. Patient has been afebrile, heart rate 75, blood pressure 108/56. Pulse ox is 91-94% on 7 L high flow nasal cannula which is an improvement over the weekend. Patient does desaturate with exertion. She has been continued onIV Bumex 2 mg daily, in addition to Zaroxolyn 2.5 mg on Thursday and Thursday. She is diuresing, she is in -2.5 L fluid balance over the last 24 hours. Lower extremity edema is improved. Her stool culture was positive for Vianey albican s, and so was her sputum culture. She is on Diflucan. Her last chest x-ray was yesterday showing persistent interstitial infiltrates. Afrin spray added. 07/31 patient examined bedside. Shortness of breath is improved currently on 4- 1/2 L of oxygen saturating well at 93-95%. The patient's breathing is better. Sinus congestion is better with Afrin spray. Continue Bumex at 2 mg IV daily. Metolazone increased to 2.5 mg daily from Thursday and Thursday. Solu- Medrol switched to prednisone 30 mg by mouth daily. Blood sugar remains to be high Levemir increased to 30 twice a day 08/02 patient examined bedside. Shortness of breath is worsened since yesterday patient is currently on 15 L high flow oxygen. Patient switched to Solu-Medrol 60 every 6 hours. CTA ordered to rule out pulmonary embolism but was negative for PE patient continues remain on Bumex in addition to Zaroxolyn. 08/03 patient examined bedside. Appears comfortable. She is down trended on oxygen need from 15 L to 6 L nasal cannula. Blood sugar appears to be high with the increase in steroids. Continue Solu-Medrol at 60 every 6. Patient initiated on Zosyn by Dr. Ward. Continue Bumex 1 mg IV every 12 in addition to Zaroxolyn. Zaroxolyn increased to 5 mg daily Continue to monitor patient's vitals continue colchicine Protonix 40 twice a day 08/04: Patient is doing better yesterday her oxygen was down to 6 L but the blood to have low-grade temperature review of her chest CAT scan showed some consol idation area around the bronchial tube with scarring from code 19 also shows slight pericardial effusion, echocardiogram will be done today, continue diuretics and be more aggressive with furosemide on the short on the long run. Meanwhile try to decrease her O2 to be under 6 L and hopefully prepare for discharge this week one of the [facility] with higher flow to at least between 5 and 6 L for the next 2-3 weeks. 08/05: Patient remain on oxygen require around 5 L nasal cannula, decreased coug h, no fever or chills. Echocardiogram result came back with very small amount of pericardial effusion no decompression. Patient is not having any fever or chills. Patient is having significant constipation and plan for discharge tomorrow patient wants to go to subacute rehab most likely to [facility]. 08/06: Patient is having more shortness of breath along with nausea and more GI symptoms morning not clear etiology her oxygen level dropped down she is up to 7 L today try to keep pulse ox above 92 percentile, EKGs on order CK and troponin will be done along with BNP and patient will be going for CTA to exclude any possibility of pulmonary embolism at this point. Patient is having mild anxiety as well we can use small dose of benzodiazepine. Her discharge planning will be delayed at least the next 24 hours until this is better until make sure from cardiology and pulmonary standpoint she stable. 08/07: Patient evaluated, her oxygen noted to drop to 81% on 7L, she was increased back to 10L and currently is saturating in the lower 90s. Clinically she looks good and does not appear to be in distress. Her CT was negative for PE and showed groundglass infiltrates, but improved from last exam. Discharge held due to her hypoxia this morning. Patient was also refusing her Bumex, after dis cussion with the patient, she is now agreeable. Objective - Vital Signs Vital signs: Vital Signs Temp 97.2 F L 08/07/20 12:13 Pulse 85 08/07/20 12:13 Resp 16 08/07/20 12:13 BP 93/63 08/07/20 12:13 Pulse Ox 93 L 08/07/20 12:13 Intake & Output 08/06/20 08/07/20 08/07/20 18:59 06:59 18:59 Intake Total 600 Output Total 1100 1200 100 Balance -500 -1200 -100 Weight 126.5 kg Intake: Oral 600 Output: Urine 1100 1100 Stool 100 100 Other: Voiding Method Bedpan Bedpan Bedpan External Catheter External Catheter External Catheter # Voids 2 - Exam General Appearance: Alert, cooperative, morbidly obese in no respiratory distress. Neck HEENT: Supple, no lymphadenopathy, no thyroid enlargement, no carotid bruits. Lungs: Decreased breath some bilateral expiratory wheezes improved . Chest Wall: Decrease expansion with deep inspiration no tenderness and no deformity was found on exam, no costochondral pain or discomfort. Heart: Regular rate and rhythm, S1, S2 positive systolic murmur with S3. Back: Symmetric, no curvature, ROM normal, no CVA tenderness. Abdomen: Soft, non-tender, bowel sounds active all four quadrants, no masses, no organomegaly. Extremities: 1+ edema and decreased pulses bilaterally. Pulses: 1+ and symmetric. Skin: Skin color, texture, tugor normal, no rashes or lesions. Neurologic: Alert oriented x3 cranial nerves II through XII intact, no motor deficit, no abnormal balance or gait. - Labs CBC & Chem 7: 08/05/20 05:26 08/05/20 05:26 Labs: Abnormal Lab Results - Last 24 Hours (Table) 08/06/20 08/06/20 08/06/20 Range/Units 10:44 17:08 20:39 POC Glucose (mg/dL) 226 H >600 H (75-99) mg/dL Lactate Dehydrogenase (120-246) U/L CK-MB (CK-2) 6.2 H (0.0-2.4) ng/mL Troponin I 0.258 H* (0.000-0.034) ng/mL 08/06/20 08/07/20 08/07/20 Range/Units 20:40 06:33 11:50 POC Glucose (mg/dL) 225 H 223 H (75-99) mg/dL Lactate Dehydrogenase 405 H (120-246) U/L CK-MB (CK-2) (0.0-2.4) ng/mL Troponin I (0.000-0.034) ng/mL Assessment and Plan Plan: 1 acute hypoxic respiratory failure secondary to acute Covid pneumonitis with worsening symptoms. Possible underlying bacterial pneumonia. Consult with pulmonary medicine. Prednisone switch to Solu-Medrol 60 every 6, convalescent plasma, Augmentin, vitamin C, vitamin D, colchicine, oxygen support, lovenox 40 mg by mouth daily Continue Bumex 1 mg IV twice a day and zaroxyln increased to 5 mg every day from Thursday and Thursday. Continue Tessalon Perles, can stop antibiotic and probably Decadron will be down to 4 mg one a day for one more week and then she should be off. 2 acute Covid pneumonitis with worsening symptoms. Continue as in #1. 3 severe hypoxia: Most likely secondary to Covid 19 pneumonitis, continue patient on higher flow to continue current management. COPD continue albuterol inhaler. Continue O2 at 5 L patient should be able to go to subacute rehab this dose. 4 acute episode of pressure and discomfort with nausea: Try to exclude the possibility of cardiac event CK with troponin will be done patient will be going for CTA today and will be seen by pulmonary later on to exclude any complication related to Covid 19 currently with her clotting or any arrhythmia type. Her discharge will be delayed at least the next 24 hours of her symptoms are better 5. Paroxysmal atrial fibrillation, unable to tolerate anticoagulation secondary to acute GI bleed, continue metoprolol 12.5 mg twice daily and flecainide 50 mg twice a day. 6 chronic diastolic heart failure. Continue Bumex 1 mg twice daily, Zaroxolyn 5 mg daily Lopressor. Patient still been treated for restrictive heart disease with diuretics and current management. 7 peptic ulcer disease and GI prophylaxis: Continue patient on pantoprazole 40 mg twice a day 8 chronic anemia: Remain on iron supplement and multivitamins no need for transf usion. 9 mild hyponatremia: Most likely SIADH from pneumonia will continue mild gentle hydration repeat chemistry in the next 24 hours. 10 type 2 diabetes, uncontrolled with hyperglycemia secondary to steroids. Continue Accu-Chek with sliding scales coverage continue Lantus increased to 30 units twice a day units daily and still on Januvia. And scheduled NovoLog 3u with meals 11. Diarrhea. Stool cultures. C. diff negative. Diarrhea most likely secondary to Augmentin. The above impression and plan of care have been discussed and directed by signing physician. Roxi Valverde nurse practitioner acting as scribe for signing physician.
[2020-08-07 17:14] LABS: Glucose,Whole Blood 192 mg/dL (75-99)
[2020-08-07] MEDS: methylPREDNISolone SOD SUCCI 40 MG/ML 1 ML VIAL IV SCH ×2 (17:35→23:06)
[2020-08-07 21:05] LABS: Glucose,Whole Blood 189 mg/dL (75-99)
[2020-08-07] MEDS: MELATONIN 3 MG TABLET PO SCH (21:18)
[2020-08-07] MEDS: LINAGLIPTIN 5 MG TABLET PO SCH (21:18)
[2020-08-07] MEDS: ACETAMINOPHEN TAB 325 MG TAB PO PRN (21:20)
[2020-08-08 07:50] LABS: Glucose,Whole Blood 159 mg/dL (75-99)
[2020-08-08] MEDS: METOPROLOL TARTRATE 12.5 MG TAB PO SCH (08:21)
[2020-08-08] MEDS: INSULIN DETEMIR (LEVEMIR) 100 UNIT/ML SYR SQ SCH ×2 (08:21→20:35)
[2020-08-08] MEDS: BENZONATATE 100 MG CAP PO SCH ×3 (08:22→20:35)
[2020-08-08] MEDS: ZINC SULFATE 220 MG CAP PO SCH (08:22)
[2020-08-08] MEDS: ASCORBIC ACID 500 MG TAB PO SCH (08:22)
[2020-08-08] MEDS: methylPREDNISolone SOD SUCCI 40 MG/ML 1 ML VIAL IV SCH ×3 (08:22→23:26)
[2020-08-08] MEDS: POTASSIUM CHLORIDE ER 20 MEQ TAB.ER PO SCH (08:22)
[2020-08-08] MEDS: CHOLECALCIFEROL 25 MCG (1000 IU) TABLET PO SCH (08:22)
[2020-08-08] MEDS: PANTOPRAZOLE 40 MG TABLET PO SCH ×2 (08:22→20:35)
[2020-08-08] MEDS: BUMETANIDE 0.25 MG/ML 4 ML VIAL IVP SCH ×2 (08:23→20:34)
[2020-08-08] MEDS: INSULIN ASPART (NovoLOG) 100 UNIT/ML VIAL SQ SCH ×7 (08:23→20:35)
[2020-08-08] MEDS: CHOLESTYRAMINE (WITH SUGAR) 4 GM PACKET PO SCH ×2 (08:24→17:06)
[2020-08-08] MEDS: metOLazone 5 MG TAB PO SCH (08:24)
[2020-08-08] MEDS: ENOXAPARIN 40 MG/0.4 ML SYRINGE SQ SCH (08:24)
[2020-08-08] MEDS: FLECAINIDE 50 MG TAB PO SCH ×2 (08:24→20:34)
[2020-08-08] MEDS: COLCHICINE 0.6 MG EACH PO SCH (08:24)
[2020-08-08] MEDS: OXYMETAZOLINE 0.05% NASL SPRAY 1 SPRAY BOTTLE NASAL SCH ×2 (08:45→20:35)
[2020-08-08] MEDS: MAG HYDROX/AL HYDROX/SIMETH 30 ML, LIDOCAINE VISCOUS 30 ML, NYSTATIN 100,000 UNIT/ML SU... PO SCH ×9 (08:45→20:36)
[2020-08-08] MEDS: ALBUTEROL HFA INHALER INHALATION PRN ×2 (11:23→15:23)
[2020-08-08 11:30] LABS: Glucose,Whole Blood 202 mg/dL (75-99)
--- NOTE | 2020-08-08 11:40 | P.PN ---
Subjective Progress Note Date: 08/08/20 Principal diagnosis: CoVID 19 pneumonia 74-year-old female who was seen in the emergency department on 07/16/2020, at 1535. The patient presented with complaints of shortness of breath. The patient has a history of atrial fibrillation, obesity, congestive heart failure, and diabetes. She apparently was diagnosed with COVID 19 infection on July 09. Prior to being tested positive, the patient had 2 weeks of what she describes as a head cold. She started taking vitamins, and Decadron. More recently, she's been getting progressively worse as it relates to her shortness of breath, which now occurs on any activity. She does have some nausea, but denies any vomiting or diarrhea. She denies any chest pain. She denies any genitourinary complaints and lower extremity edema. Apparently her family doctor recommended that she come into the emergency room to be evaluated. A chest x-ray reveals some mild pulmonary interstitial pneumonia, and the CT angiogram revealed no evidence of any central or large pulmonary emboli, but did show extensive groundglass pulmonary interstitial infiltrates, consistent with her diagnosis of COVID19 pneumonia. Unfortunately, she is beyond the window for remdesivir. Currently, she is on 5 L nasal cannula, and her saturations are 99%. Her respiratory rate is 20, and her temperature is 97.6F. Blood pressure is good and heart rate is 71 bpm. Her current white count is 8.09, hemoglobin 10.1, hematocrit 34.7, and platelet count 137,000. Sodium is 135, potassium 4.9, chlorides 102, CO2 25, anion gap 8, BUN 17, and creatinine 0.8. D-dimer is 1.21, ferritin is 624, LDH is 1468, and C-reactive protein is 139. N-terminal proBNP was 1970. Pro-calcitonin level was 0.20. On 07/18/2020 patient seen in follow-up on medical floor, she is currently on 11 L of oxygen, she is awake and alert, she said nobody into the bed, apparently earlier she felt a little dizzy, she feels fatigued, be in no acute distress. Today's labs have been reviewed, showing white blood cell count of 18.5, hemoglobin is 10.4, his inflammatory markers are trending down, LDH is down to 943, CRP is down to 6.6, pro calcitonin level was 0.20. Continues on prophylactic dose of Lovenox, IV Decadron 6 mg daily, colchicine, and zinc On 07/19/2020 patient seen in follow-up on medical floor. She is currently up to 2 L of oxygen, her pulse ox is 91-94%, she states she feels better but she is requiring more oxygen, she states she is coughing up some phlegm. Today's chest x-ray has been reviewed showing central vascularity and interstitial increased, bilateral groundglass opacity within the lungs. And there is persistent elevation of the right hemidiaphragm. Patient seems to have increased edema in her lower extremities, she is currently on a daily dose of oral Bumex 1 mg daily, her lung sounds positive for scattered rhonchi. We will add empiric antibiotics, will afternoon dose of oral Bumex and obtain follow-up chest x-ray tomorrow. Physically she states she is feeling better, she is able to clear some phlegm. On 07/20/2020 patient seen in follow-up on medical floor, her oxygen requirements are continuously increasing, currently up to 15 L of oxygen per high flow nasal cannula and partial nonrebreather and her pulse ox is between 91-95%, afebrile. She is more dyspneic today, her lower extremities remain swollen, we did give the patient a dose of diuretics yesterday, however her neck fluid balance is very difficult to estimate. Her inflammatory markers have been reviewed, and pH is down to 780, and CRP is at 9.4, pro calcitonin level has decreased and is down to 0.12, however d-dimer has trended down and is up to 8.72, and we will adjust the dose of Lovenox to 0.5 mg/kg of body weight twice daily. Based Effexor has been reviewed showing worsening airspace disease, pneumonia and pulmonary edema. The patient is seen today 07/21/2020 in follow-up on the regular medical floor. She is currently sitting up in a chair at the bedside. Awake and alert in no acute distress. She is still requiring 15 L high flow nasal cannula along with 15 L partial rebreather mask. O2 saturations in the low 90s. She is afebrile. She has received 1 unit of convalescent plasma. White count 16.2. Hemoglobin 10.2. Lymphocytes 0.3. Sodium 138. Potassium 3.8. Creatinine 0.8. She is on antibiotics in the form of Augmentin. Continue on vitamin supplements. Remains on colchicine, IV Solu-Medrol, Lovenox. The patient is seen today 07/22/2020 in follow-up on the regular medical floor. She is awake and alert in no acute distress. Sitting up in a chair at the bedside. She is still requiring 15 L high flow nasal cannula along with a partial nonrebreather mask to maintain O2 saturations in the low 90s. Chest x-r ay continues to show bilateral airspace infiltrates however there is some interval improvement. She did receive 1 unit of convalescent plasma. D-dimer 7.56. LDH 531. C-reactive protein 3.3. She remains on colchicine, IV Solu- Medrol, Lovenox, vitamin supplements, Augmentin. The patient is seen today 07/29/2020 in follow-up on the regular medical floor. She is currently sitting up in a chair at the bedside. Awake and alert in no acute distress. She is down to 10 L high flow nasal cannula O2 saturation 97%. She's afebrile. Hemodynamically stable. Chest x-ray shows persistent intersti tial infiltrates. Stable compared to previous. She has received 2 units of convalescent plasma. Blood cultures revealed no growth. Sputum culture positive for Vianey. Blood glucose 194. She remains on bronchodilators, IV Solu-Medrol, Lovenox, Colcrys, Protonix, vitamin supplements. IV Bumex. The patient is seen today 08/03/2020 in follow-up on the regular medical floor. She is currently sitting up at the bedside. Awake and alert in no acute distress. She is currently on 10 L high flow nasal cannula and maintaining O2 saturations in the 90s. This is been dialed down to 6 L and currently 96%. She's afebrile. D-dimer 1.21. Glucose 221. She is improved on Bumex 1 mg IV push every 12 hours. Remains on vitamin supplements, IV Solu-Medrol and colchicine. Antibiotics in the form of Zosyn. The patient is seen today 08/04/2020 in follow-up on the regular medical floor. She is currently resting in bed. Awake and alert in no acute distress. Remains on 6 L high flow nasal cannula with O2 saturation in the mid 90s. She is afebrile. Blood glucose 301. Remains on IV Solu-Medrol, bronchodilators, colchicine, Lovenox, vitamin supplements. Antibiotics in the form of Zosyn. Remains on Bumex and Zaroxolyn. Echocardiogram pending. The patient is seen today 08/08/2020 in follow-up on the regular medical floor. She is currently resting in bed. Awake and alert in no acute distress. She is currently on 11 L high flow nasal cannula with O2 saturation at 100%. She's afebrile. Hemodynamically stable. Staff states she does desaturate into the 70s with minimal exertion. She remains on Bumex 1 mg IV every 12 hours. Continued on bronchodilators, IV Solu-Medrol, colchicine, vitamin supplements. Lovenox for DVT prophylaxis. Echocardiogram revealed preserved left ventricular systolic function with ejection fraction 50-55%. Objective - Vital Signs Vital signs: Vital Signs Temp 97.5 F L 08/08/20 06:20 Pulse 78 08/08/20 09:30 Resp 22 08/08/20 09:30 BP 144/79 08/08/20 09:30 Pulse Ox 100 08/08/20 11:15 Intake & Output 08/07/20 08/08/20 08/08/20 18:59 06:59 18:59 Intake Total 100 200 Output Total 100 675 Balance 0 -675 200 Weight 126 kg Intake: Oral 100 200 Output: Urine 675 Stool 100 Other: Voiding Method Bedpan Bedpan Bedpan External Catheter External Catheter External Catheter - Exam GENERAL EXAM: Alert, very pleasant, obese 75-year-old female patient 11 L of high flow oxygen, in no acute distress HEAD: Normocephalic/atraumatic. EYES: Normal reaction of pupils, equal size. Conjunctiva pink, sclera white. NOSE: Clear with pink turbinates. THROAT: No erythema or exudates. NECK: No masses, no JVD, no thyroid enlargement, no adenopathy. CHEST: No chest wall deformity. Symmetrical expansion. LUNGS: Equal air entry with bilateral scattered rhonchi CVS: Regular rate and rhythm, normal S1 and S2, no gallops, no murmurs, no rubs ABDOMEN: Soft, nontender. No hepatosplenomegaly, normal bowel sounds, no guarding or rigidity. EXTREMITIES: No clubbing, no edema, no cyanosis, 2+ pulses and upper and lower extremities. MUSCULOSKELETAL: Muscle strength and tone normal. SPINE: No scoliosis or deformity SKIN: No rashes CENTRAL NERVOUS SYSTEM: No focal deficits, tone is normal in all 4 extremities. PSYCHIATRIC: Alert and oriented -3. Appropriate affect. Intact judgment and insight. - Labs CBC & Chem 7: 08/05/20 05:26 08/05/20 05:26 Labs: Abnormal Lab Results - Last 24 Hours (Table) 08/07/20 08/07/20 08/07/20 Range/Units 06:33 11:50 17:03 POC Glucose (mg/dL) 223 H 192 H (75-99) mg/dL Lactate Dehydrogenase 405 H (120-246) U/L 08/07/20 08/08/20 08/08/20 Range/Units 21:02 07:49 11:29 POC Glucose (mg/dL) 189 H 159 H 202 H (75-99) mg/dL Lactate Dehydrogenase (120-246) U/L Assessment and Plan Assessment: 1 Acute hypoxemic respiratory failure secondary to COVID 19 pneumonia. Currently on 11 L high flow nasal cannula 2 History of diabetes mellitus. 3 History of atrial fibrillation. 4 History of congestive heart failure. 5 History of osteoarthritis. 6 History of chronic back pain. 7 Status post lap band surgery for obesity. 8 History of deafness. Plan: The patient was seen and evaluated by Dr. Rome Continue Bumex, Zaroxolyn Continue IV Solu-Medrol, bronchodilators Remains on colchicine, Lovenox Titrate down the FiO2 as tolerated DO NOT RESUSCITATE/DO NOT INTUBATE CODE STATUS Plan is to discharge to [facility] I, the cosigning physician, performed a history & physical examination of the patient. Lungs sounds bilateral scattered rhonchi. Maintaining good O2 saturations in the 90s on 11 L high flow nasal cannula. I discussed the assessment and plan of care with my nurse practitioner, Luisa Lubin. I attest to the above note as dictated by her.
--- NOTE | 2020-08-08 14:34 | P.PN ---
Subjective Progress Note Date: 08/08/20 74-year-old morbidly obese female one of my office patient with past medical history of A. fib with RVR, history of acute gastrointestinal bleed with anemia, history of type 2 diabetes, history of obstructive sleep apnea, mild reactive airway/COPD and mild diastolic congestive heart failure who has been seen in the office the last week for acute Covid, patient was diagnosed on the ended up going for monoclonal anti-body infusion on the . Patient called office with worsening symptoms was seen in virtual visit and was recommended to go to the hospital to be admitted. Patient has been having worsening dyspnea and shortness of breath along with severe hypoxia worsening persistent cough prod uctive of phlegm along with mild twinges of blood. Patient was seen at the emergency department her pulse ox was in the 80 percentile with a few breathing treatment along with 3 L of O2 her pulse ox was increased to the low 90. Patient chest x-ray showed severe interstitial pneumonitis. Her d-dimer was elevated and ended up going for CTA showed extensive ground glass pulmonary interstitial edema could be related to RDS no pleural effusion found at the time. Patient was started on steroids along with updraft treatment O2 will consult pulmonary admit patient to the hospital. 2/2: The patient states that she is feeling much better today. She states that she did not sleep well last night. She is found sitting up in recliner and appears to be comfortable and in no acute distress. She has been afebrile, heart rate 72, blood pressure 160/83, pulse ox 92-98% on 5 L nasal cannula. Consult in place from pulmonary medicine. Blood sugars are running in the 200s. WBC 8, hemoglobin 10.1. Repeat lactic acid 1.7. IV fluids will be discontinued. Patient is on her home dose of Bumex. 2/3: Patient has been afebrile, heart rate 79, blood pressure 162/69, pulse ox 93% on 10 L nasal cannula. Patient complains of shortness of breath and feeling cold. She continues to cough. WBC is 18.5, hemoglobin 10.4, electrolytes normal. Creatinine 0.9. Total bilirubin 0.9, AST 88, ALT 44, alkaline phosphatase 143, LDH 943, C reactive protein 6.6. Overall, inflammatory markers are improving. Patient has been seen by pulmonary medicine and is outside of the window for Remdesivir treatment. Colchicine was added 07/19:tates that she was unable to sleep all night. She was on a nonrebreather and she felt she had a panic attack. She states that she is normally claustrophobic. She is currently seen on 15 L with pulse ox of 91%. She appears to be comfortable at rest. She is complaining of dark brown sputum production. She is also having mild nosebleed with dried blood only. Blood sugars are running between 257-300. D-dimer 8.72. LDH and CRP are pending. Patient has been afebrile, heart rate 82, blood pressure 144/51. She will probably not be ready for discharge until Thursday. 07/20: Patient has developed increasing shortness of breath overnight. She is now requiring high flow nasal cannula and nonrebreather with pulse ox of 91-95%. She has been afebrile, heart rate 77, blood pressure 178/79. Blood sugars are running between 132 and 261. Convalescent plasma has been ordered by pulmonary medicine today. Steroids have been changed to Solu-Medrol 60 mg IV every 6 melly rs. Lovenox increased to 70 mg subcu twice daily. Antibiotics in the form of Augmentin. 07/21: Patient states that she is feeling better compared to yesterday. She continues to be on 15 L high flow not nasal cannula and nonrebreather. We'll continue to attempt to wean. Receiving Bumex 2 mg IV. Continues to have lower extremity swelling bilaterally. Patient received [address] asma. She was complaining of dryness to bilateral nares. Flonase added. Patient remains afebrile, pulse rate 56, blood pressure 167/73, pulse ox 94% on nonrebreather and high flow oxygen. Discussed with patient's CODE STATUS. Patient states that she does not want to be intubated or have CPR performed. We will change her CODE STATUS to no code. 07/22: Patient is found sitting up in chair continue to utilize 15 L of high flow oxygen be significantly cannula nonrebreather pulse oxing 98%. Patient states that she is feeling better able to breathe easier. She has been having diarrhea for the past few days 3-4 episodes yesterday and only one today. Patient denies any abdominal discomfort or blood in stool. She is currently on Augmentin. We will do stool cultures including C. diff. 07/23: Patient remains on high flow nasal cannula 15 L with nonrebreather at her bedside. She is pulse oxing 91 and 94%. She's been afebrile, heart rate in the 70s, blood pressure 123/74. Blood sugars have been between 193 and 339. Anticipate need for oxygen at home. 07/24: Patient is on oxygen at 15 L high flow nasal cannula with pulse ox of 95%. She has been afebrile, heart rate 74, blood pressure 135/75. WBC 9.8, hemoglobin 10.3, platelet count 95. Sodium 136, potassium 3. former be replaced . BUN 35 and creatinine 1. Blood sugars running in the 200s. AST 37, ALT 48. Anticipate that the patient will require home oxygen at the time of discharge. 07/25: Pulse ox is 93% on 15 L high flow nasal cannula and partial rebreather. She's been afebrile, heart rate 89, blood pressure 127/74. Blood sugars running between 128 and 262. Repeat chest x-ray reveals stable findings. Correlate for pneumonia. Patient has been maintained on Augmentin, colchicine, Lovenox, IV Solu-Medrol and supplements. We'll order one additional dose of Bumex this afternoon. 07/26: Patient continues to have cough with hemoptysis, she has shortness of breath with minimal activity. Pulse ox is 91-95% on 15 L high flow nasal cannula. We will add in Tessalon pearls. She continues to have thrush for whic h she is on Diflucan. Bumex increased to 2 mg IV push twice daily. She has been afebrile, heart rate 77, blood pressure 143/68. Repeat blood work reveals WBC 9, hemoglobin 11.2, platelet count 87. Sodium 136, potassium 3.7, CO2 34, BUN 44 and creatinine 0.8. Blood sugars are running 186-237. AST at 73, ALT 73. Repeat LDH 732. C-reactive protein less than 5. Patient will continue treatment in the hospital until oxygenation is improved and she is down to 5 or 6 L nasal cannula. 07/27: Patient is pulse oxing 91-95% on 15 L high flow nasal cannula. She has been afebrile, heart rate 80, blood pressure 139/81. Blood sugars are running between 163 and 246. Patient is continued on IV Solu-Medrol, supplements, Lovenox. 07/28: Patient has been diuresing very well, she has significant weight loss, per patient she has now lost 45 pounds for the past 2 weeks, shortness breath is also much better, pulse oximetry is now are between 90-96%, 11 L nasal cannula, vital signs stable, no fever no chills, no diarrhea, decreas Bumex now to 2 mg daily, she has dyspnea on exertion, minimal conversational dyspnea however this has improved. No lightheadedness no falls 07/29 patient feels not somewhat worse, she seems to slightly be better, has lost 2 more pounds, still diuresing at nighttime, complains of being tired or sleepy during the day, not sleeping well at night. Appetite is much better, no nausea no respiratory events, still 8 L nasal cannula 91%, still has anasarca mainly in the legs, resolved edema in the upper extremities , start melatonin for sleep hygiene latter day, on Zaroxolyn Thursday 2.5, still on Solu-Medrol 60 mg every 6 hours, Bumex at 2 mg IV daily. Potassium at 3.4, being replaced 07/30: Blood sugars are in the low 200s, Levemir will be increased to 50 units daily which will start tomorrow. She is currently on Solu-Medrol 60 mg IV every 6 hours. Patient has been afebrile, heart rate 75, blood pressure 108/56. Pulse ox is 91-94% on 7 L high flow nasal cannula which is an improvement over the weekend. Patient does desaturate with exertion. She has been continued onIV Bumex 2 mg daily, in addition to Zaroxolyn 2.5 mg on Thursday and Thursday. She is diuresing, she is in -2.5 L fluid balance over the last 24 hours. Lower extremity edema is improved. Her stool culture was positive for Vianey albicans, and so was her sputum culture. She is on Diflucan. Her last chest x- ray was yesterday showing persistent interstitial infiltrates. Afrin spray added. 07/31 patient examined bedside. Shortness of breath is improved currently on 4- 1/2 L of oxygen saturating well at 93-95%. The patient's breathing is better. Sinus congestion is better with Afrin spray. Continue Bumex at 2 mg IV daily. Metolazone increased to 2.5 mg daily from Thursday and Thursday. Solu- Medrol switched to prednisone 30 mg by mouth daily. Blood sugar remains to be high Levemir increased to 30 twice a day 08/01: Patient continues to complain of sore mouth. She has already been treated with nystatin and now on Diflucan. We will add and cool solution 3 times daily. She is currently on 8 L high flow nasal cannula with pulse ox of 92%. Afebrile, heart rate 65, blood pressure 118/72. Repeat blood work reveals WBC 18.45. Hemoglobin 11.1, platelet count 217. Potassium is 2.8 and will be replaced with 120 mEq of potassium. Recheck potassium this afternoon. BUN 57, creatinine 1.1. Blood sugar was low this morning at 46 with repeated 63. Scheduled NovoLog discontinued, Levemir decreased from 30 units twice daily to 40 units once at bedtime C-reactive protein less than 0.4. LDH 395. Liver function tests are elevated with total bilirubin 1.3, AST 62, ALT 130, apply phosphatase 139. CTA of the chest showed no acute pulmonary embolism. Scatte red groundglass opacities and increased lung markings considered atypical pneumonia or pulmonary edema. 08/02 patient examined bedside. Shortness of breath is worsened since yesterday patient is currently on 15 L high flow oxygen. Patient switched to Solu-Medrol 60 every 6 hours. CTA ordered to rule out pulmonary embolism but was negative for PE patient continues remain on Bumex in addition to Zaroxolyn. 08/03 patient examined bedside. Appears comfortable. She is down trended on oxygen need from 15 L to 6 L nasal cannula. Blood sugar appears to be high with the increase in steroids. Continue Solu-Medrol at 60 every 6. Patient initiated on Zosyn by Dr. Ward. Continue Bumex 1 mg IV every 12 in addition to Zaroxolyn. Zaroxolyn increased to 5 mg daily Continue to monitor patient's vitals continue colchicine Protonix 40 twice a day 08/04: Patient is doing better yesterday her oxygen was down to 6 L but the blood to have low-grade temperature review of her chest CAT scan showed some consolidation area around the bronchial tube with scarring from code 19 also shows slight pericardial effusion, echocardiogram will be done today, continue diuretics and be more aggressive with furosemide on the short on the long run. Meanwhile try to decrease her O2 to be under 6 L and hopefully prepare for discharge this week one of the detention with higher flow to at least between 5 and 6 L for the next 2-3 weeks. 08/05: Patient remain on oxygen require around 5 L nasal cannula, decreased cough, no fever or chills. Echocardiogram result came back with very small amount of pericardial effusion no decompression. Patient is not having any fever or chills. Patient is having significant constipation and plan for discharge tomorrow patient wants to go to subacute rehab most likely to [facility]. 08/06: Patient is having more shortness of breath along with nausea and more GI symptoms morning not clear etiology her oxygen level dropped down she is up to 7 L today try to keep pulse ox above 92 percentile, EKGs on order CK and troponin will be done along with BNP and patient will be going for CTA to exclude any possibility of pulmonary embolism at this point. Patient is having mild anxiety as well we can use small dose of benzodiazepine. Her discharge planning will be delayed at least the next 24 hours until this is better until make sure from cardiology and pulmonary standpoint she stable. 08/07: Patient evaluated, her oxygen noted to drop to 81% on 7L, she was increased back to 10L and currently is saturating in the lower 90s. Clinically she looks good and does not appear to be in distress. Her CT was negative for PE and showed groundglass infiltrates, but improved from last exam. Discharge held due to her hypoxia this morning. Patient was also refusing her Bumex, after discussion with the patient, she is now agreeable. 08/08: Patient's oxygen saturation dropped down into the 70s when she sat at the side of the bed. She is currently seeing with nonrebreather in place. She does not appear to be in acute distress at rest. Pulse ox is 92-100% on high flow na lam cannula at 11 L. She has been afebrile, heart rate 78, blood pressure 144/79. Blood sugars are running between 159 and 202. She is continued on IV Bumex 1 mg every 12 hours, Solu-Medrol 40 mg IV every 8 hours, Zaroxolyn 5 mg daily REVI EW OF SYSTEMS CONSTITUTIONAL: Well-developed with no respiratory distress at rest. Denies fevers. Denies chills. EYES: No icterus sclerae, no conjunctivitis. EARS, NOSE, MOUTH, THROAT, and FACE: Reports nasal congestion. No sore throat, lymphadenopathy, carotid bruits or deformity. RESPIRATORY: Moderate dyspnea and shortness of breath and cough. Dyspnea with exertion. Dyspnea at rest. CARDIOVASCULAR: Positive PND orthopnea . Denies palpitation with no angina. GASTROINTESTINAL: No Abd pain, Nausea or vomiting, no Diarrhea or constipation, No GI Bleed, no distention or masses. GENITOURINARY: Negative for Hematuria or UTI, no kidney stones. INTEGUMENT/BREAST: Negative for any muscular injury with mild osteoarthritis. Chronic edema. HEMATOLOGIC/LYMPHATIC: Negative for bleed or purpura. MUSCULOSKELTAL: Negative for Myalgia or arthralgia. Significant arthralgia and myalgia. NEURLOGICAL: No LOC, Sz or syncope, blurred vision dizziness or abnormality.. BEHAVIORAL/PSYCH: Negative. ENDOCRLavina blood sugars PHYSICAL EXAMINATION General Appearance: Alert, cooperative, morbidly obese in no respiratory distress. Patient is resting comfortably in bed. Patient is on a nonrebreather mask Neck HEENT: Supple, no lymphadenopathy, no thyroid enlargement, no carotid bruits. Lungs: Decreased breath some bilateral expiratory wheezes. No accessory muscle usage while at rest. Chest Wall: Decrease expansion with deep inspiration no tenderness and no deformity was found on exam, no costochondral pain or discomfort. Heart: Regular rate and rhythm, S1, S2 positive systolic murmur with S3. Back: Symmetric, no curvature, ROM normal, no CVA tenderness. Abdomen: Soft, non-tender, bowel sounds active all four quadrants, no masses, no organomegaly. Extremities: 1+ edema and decreased pulses bilaterally. Pulses: 1+ and symmetric. Skin: Skin color, texture, tugor normal, no rashes or lesions. Neurologic: Alert oriented x3 cranial nerves II through XII intact, no motor deficit, no abnormal balance or gait. ASSESSMENT AND PLAN 1 acute hypoxic respiratory failure secondary to acute Covid pneumonitis with worsening symptoms. Consult with pulmonary medicine shaded. Continue Solu- Medrol 40 mg IV every 8 hours, Bumex 1 mg IV push every 12 hours, Ventolin inh aler every 6 hours as needed, Zaroxolyn 5 mg daily, Tessalon Perles 100 mg 3 times daily, colchicine 0.6 mg daily, vitamin C, vitamin D, zinc, Afrin nasal spray, Lovenox 40 mg subcu daily. 2 acute Covid pneumonitis with worsening symptoms. Continue as in #1. 3 COPD continue albuterol inhaler. 4. Paroxysmal atrial fibrillation, unable to tolerate anticoagulation secondary to acute GI bleed, continue metoprolol 12.5 mg twice daily and flecainide 50 mg twice a day. 5 type 2 diabetes, uncontrolled with hyperglycemia secondary to steroids and hypoglycemia. Continue Accu-Chek with sliding scales coverage continue Lantus 30 units twice daily, NovoLog 3 units scheduled with meals. 6 chronic diastolic heart failure. Continue Bumex IV, Lopressor. 7 peptic ulcer disease and GI prophylaxis: Continue patient on pantoprazole 40 mg daily. 8 chronic anemia: Remain on iron supplement and multivitamins no need for transfusion. 9 mild hyponatremia: Most likely SIADH from pneumonia will continue mild gentle hydration repeat chemistry in the next 24 hours. 10 DVT prophylaxis: Patient will be on Lovenox subcutaneous daily. 11 GI prophylaxis: Will be on pantoprazole. 12. Diarrhea. Stool cultures. C. diff negative. Diarrhea most likely secondary to Augmentin. 13. Thrush. Patient has been treated with nystatin, Diflucan and cool solution. CODE STATUS: No Code DISCHARGE PLAN Most likely home this week. Patient may require home oxygen. Impression and plan of care have been directed as dictated by the signing physician. Leeann Rose nurse practitioner acting as scribe for signing physician. Objective - Vital Signs Vital signs: Vital Signs Temp 97.5 F L 08/08/20 06:20 Pulse 89 08/08/20 06:20 Resp 22 08/08/20 06:20 BP 131/65 08/08/20 06:20 Pulse Ox 97 08/08/20 06:20 Intake & Output 08/07/20 08/08/20 08/08/20 18:59 06:59 18:59 Intake Total 100 Output Total 100 675 Balance 0 -675 Weight 126 kg Intake: Oral 100 Output: Urine 675 Stool 100 Other: Voiding Method Bedpan Bedpan External Catheter External Catheter - Labs CBC & Chem 7: 08/05/20 05:26 08/05/20 05:26 Labs: Abnormal Lab Results - Last 24 Hours (Table) 02/08/07/20 08/07/20 Range/Units 06:33 11:50 17:03 POC Glucose (mg/dL) 223 H 192 H (75-99) mg/dL Lactate Dehydrogenase 405 H (120-246) U/L 08/07/20 08/08/20 Range/Units 21:02 07:49 POC Glucose (mg/dL) 189 H 159 H (75-99) mg/dL Lactate Dehydrogenase (120-246) U/L
[2020-08-08 16:55] LABS: Glucose,Whole Blood 197 mg/dL (75-99)
[2020-08-08 20:27] LABS: Glucose,Whole Blood 189 mg/dL (75-99)
[2020-08-08] MEDS: MELATONIN 3 MG TABLET PO SCH (20:34)
[2020-08-08] MEDS: LINAGLIPTIN 5 MG TABLET PO SCH (20:35)
[2020-08-09 07:01] LABS: Glucose,Whole Blood 96 mg/dL (75-99)
[2020-08-09] MEDS: INSULIN ASPART (NovoLOG) 100 UNIT/ML VIAL SQ SCH ×7 (07:48→20:17)
[2020-08-09] MEDS: METOPROLOL TARTRATE 12.5 MG TAB PO SCH (08:01)
[2020-08-09] MEDS: ENOXAPARIN 40 MG/0.4 ML SYRINGE SQ SCH (08:01)
[2020-08-09] MEDS: PANTOPRAZOLE 40 MG TABLET PO SCH ×2 (08:01→21:44)
[2020-08-09] MEDS: ZINC SULFATE 220 MG CAP PO SCH (08:01)
[2020-08-09] MEDS: ASCORBIC ACID 500 MG TAB PO SCH (08:01)
[2020-08-09] MEDS: BENZONATATE 100 MG CAP PO SCH ×3 (08:01→21:44)
[2020-08-09] MEDS: POTASSIUM CHLORIDE ER 20 MEQ TAB.ER PO SCH (08:01)
[2020-08-09] MEDS: CHOLECALCIFEROL 25 MCG (1000 IU) TABLET PO SCH (08:02)
[2020-08-09] MEDS: methylPREDNISolone SOD SUCCI 40 MG/ML 1 ML VIAL IV SCH ×2 (08:02→17:04)
[2020-08-09] MEDS: MAG HYDROX/AL HYDROX/SIMETH 30 ML, LIDOCAINE VISCOUS 30 ML, NYSTATIN 100,000 UNIT/ML SU... PO SCH ×9 (08:04→21:45)
[2020-08-09] MEDS: INSULIN DETEMIR (LEVEMIR) 100 UNIT/ML SYR SQ SCH ×2 (08:12→21:44)
[2020-08-09] MEDS: BUMETANIDE 0.25 MG/ML 4 ML VIAL IVP SCH ×2 (08:13→22:54)
[2020-08-09] MEDS: FLECAINIDE 50 MG TAB PO SCH ×2 (08:13→21:44)
[2020-08-09] MEDS: COLCHICINE 0.6 MG EACH PO SCH (08:14)
[2020-08-09] MEDS: CHOLESTYRAMINE (WITH SUGAR) 4 GM PACKET PO SCH ×2 (08:14→17:22)
[2020-08-09] MEDS: metOLazone 5 MG TAB PO SCH (08:15)
[2020-08-09] MEDS: OXYMETAZOLINE 0.05% NASL SPRAY 1 SPRAY BOTTLE NASAL SCH ×2 (08:15→21:44)
[2020-08-09] MEDS: ALBUTEROL HFA INHALER INHALATION PRN ×3 (08:31→20:04)
[2020-08-09 11:50] LABS: Glucose,Whole Blood 189 mg/dL (75-99)
--- NOTE | 2020-08-09 12:54 | P.PN ---
Subjective Progress Note Date: 08/09/20 74-year-old morbidly obese female one of my office patient with past medical history of A. fib with RVR, history of acute gastrointestinal bleed with anemia, history of type 2 diabetes, history of obstructive sleep apnea, mild reactive airway/COPD and mild diastolic congestive heart failure who has been seen in the office the last week for acute Covid, patient was diagnosed on the ended up going for monoclonal anti-body infusion on the . Patient called office with worsening symptoms was seen in virtual visit and was recommended to go to the hospital to be admitted. Patient has been having worsening dyspnea and shortness of breath along with severe hypoxia worsening persistent cough prod uctive of phlegm along with mild twinges of blood. Patient was seen at the emergency department her pulse ox was in the 80 percentile with a few breathing treatment along with 3 L of O2 her pulse ox was increased to the low 90. Patient chest x-ray showed severe interstitial pneumonitis. Her d-dimer was elevated and ended up going for CTA showed extensive ground glass pulmonary interstitial edema could be related to RDS no pleural effusion found at the time. Patient was started on steroids along with updraft treatment O2 will consult pulmonary admit patient to the hospital. 2/2: The patient states that she is feeling much better today. She states that she did not sleep well last night. She is found sitting up in recliner and appears to be comfortable and in no acute distress. She has been afebrile, heart rate 72, blood pressure 160/83, pulse ox 92-98% on 5 L nasal cannula. Consult in place from pulmonary medicine. Blood sugars are running in the 200s. WBC 8, hemoglobin 10.1. Repeat lactic acid 1.7. IV fluids will be discontinued. Patient is on her home dose of Bumex. 2/3: Patient has been afebrile, heart rate 79, blood pressure 162/69, pulse ox 93% on 10 L nasal cannula. Patient complains of shortness of breath and feeling cold. She continues to cough. WBC is 18.5, hemoglobin 10.4, electrolytes normal. Creatinine 0.9. Total bilirubin 0.9, AST 88, ALT 44, alkaline phosphatase 143, LDH 943, C reactive protein 6.6. Overall, inflammatory markers are improving. Patient has been seen by pulmonary medicine and is outside of the window for Remdesivir treatment. Colchicine was added 07/19:tates that she was unable to sleep all night. She was on a nonrebreather and she felt she had a panic attack. She states that she is normally claustrophobic. She is currently seen on 15 L with pulse ox of 91%. She appears to be comfortable at rest. She is complaining of dark brown sputum production. She is also having mild nosebleed with dried blood only. Blood sugars are running between 257-300. D-dimer 8.72. LDH and CRP are pending. Patient has been afebrile, heart rate 82, blood pressure 144/51. She will probably not be ready for discharge until Thursday. 07/20: Patient has developed increasing shortness of breath overnight. She is now requiring high flow nasal cannula and nonrebreather with pulse ox of 91-95%. She has been afebrile, heart rate 77, blood pressure 178/79. Blood sugars are running between 132 and 261. Convalescent plasma has been ordered by pulmonary medicine today. Steroids have been changed to Solu-Medrol 60 mg IV every 6 melly rs. Lovenox increased to 70 mg subcu twice daily. Antibiotics in the form of Augmentin. 07/21: Patient states that she is feeling better compared to yesterday. She continues to be on 15 L high flow not nasal cannula and nonrebreather. We'll continue to attempt to wean. Receiving Bumex 2 mg IV. Continues to have lower extremity swelling bilaterally. Patient received [address] asma. She was complaining of dryness to bilateral nares. Flonase added. Patient remains afebrile, pulse rate 56, blood pressure 167/73, pulse ox 94% on nonrebreather and high flow oxygen. Discussed with patient's CODE STATUS. Patient states that she does not want to be intubated or have CPR performed. We will change her CODE STATUS to no code. 07/22: Patient is found sitting up in chair continue to utilize 15 L of high flow oxygen be significantly cannula nonrebreather pulse oxing 98%. Patient states that she is feeling better able to breathe easier. She has been having diarrhea for the past few days 3-4 episodes yesterday and only one today. Patient denies any abdominal discomfort or blood in stool. She is currently on Augmentin. We will do stool cultures including C. diff. 07/23: Patient remains on high flow nasal cannula 15 L with nonrebreather at her bedside. She is pulse oxing 91 and 94%. She's been afebrile, heart rate in the 70s, blood pressure 123/74. Blood sugars have been between 193 and 339. Anticipate need for oxygen at home. 07/24: Patient is on oxygen at 15 L high flow nasal cannula with pulse ox of 95%. She has been afebrile, heart rate 74, blood pressure 135/75. WBC 9.8, hemoglobin 10.3, platelet count 95. Sodium 136, potassium 3. former be replaced . BUN 35 and creatinine 1. Blood sugars running in the 200s. AST 37, ALT 48. Anticipate that the patient will require home oxygen at the time of discharge. 07/25: Pulse ox is 93% on 15 L high flow nasal cannula and partial rebreather. She's been afebrile, heart rate 89, blood pressure 127/74. Blood sugars running between 128 and 262. Repeat chest x-ray reveals stable findings. Correlate for pneumonia. Patient has been maintained on Augmentin, colchicine, Lovenox, IV Solu-Medrol and supplements. We'll order one additional dose of Bumex this afternoon. 07/26: Patient continues to have cough with hemoptysis, she has shortness of breath with minimal activity. Pulse ox is 91-95% on 15 L high flow nasal cannula. We will add in Tessalon pearls. She continues to have thrush for whic h she is on Diflucan. Bumex increased to 2 mg IV push twice daily. She has been afebrile, heart rate 77, blood pressure 143/68. Repeat blood work reveals WBC 9, hemoglobin 11.2, platelet count 87. Sodium 136, potassium 3.7, CO2 34, BUN 44 and creatinine 0.8. Blood sugars are running 186-237. AST at 73, ALT 73. Repeat LDH 732. C-reactive protein less than 5. Patient will continue treatment in the hospital until oxygenation is improved and she is down to 5 or 6 L nasal cannula. 07/27: Patient is pulse oxing 91-95% on 15 L high flow nasal cannula. She has been afebrile, heart rate 80, blood pressure 139/81. Blood sugars are running between 163 and 246. Patient is continued on IV Solu-Medrol, supplements, Lovenox. 07/28: Patient has been diuresing very well, she has significant weight loss, per patient she has now lost 45 pounds for the past 2 weeks, shortness breath is also much better, pulse oximetry is now are between 90-96%, 11 L nasal cannula, vital signs stable, no fever no chills, no diarrhea, decreas Bumex now to 2 mg daily, she has dyspnea on exertion, minimal conversational dyspnea however this has improved. No lightheadedness no falls 07/29 patient feels not somewhat worse, she seems to slightly be better, has lost 2 more pounds, still diuresing at nighttime, complains of being tired or sleepy during the day, not sleeping well at night. Appetite is much better, no nausea no respiratory events, still 8 L nasal cannula 91%, still has anasarca mainly in the legs, resolved edema in the upper extremities , start melatonin for sleep hygiene scientology, on Zaroxolyn Thursday 2.5, still on Solu-Medrol 60 mg every 6 hours, Bumex at 2 mg IV daily. Potassium at 3.4, being replaced 07/30: Blood sugars are in the low 200s, Levemir will be increased to 50 units daily which will start tomorrow. She is currently on Solu-Medrol 60 mg IV every 6 hours. Patient has been afebrile, heart rate 75, blood pressure 108/56. Pulse ox is 91-94% on 7 L high flow nasal cannula which is an improvement over the weekend. Patient does desaturate with exertion. She has been continued onIV Bumex 2 mg daily, in addition to Zaroxolyn 2.5 mg on Thursday and Thursday. She is diuresing, she is in -2.5 L fluid balance over the last 24 hours. Lower extremity edema is improved. Her stool culture was positive for Vianey albicans, and so was her sputum culture. She is on Diflucan. Her last chest x- ray was yesterday showing persistent interstitial infiltrates. Afrin spray added. 07/31 patient examined bedside. Shortness of breath is improved currently on 4- 1/2 L of oxygen saturating well at 93-95%. The patient's breathing is better. Sinus congestion is better with Afrin spray. Continue Bumex at 2 mg IV daily. Metolazone increased to 2.5 mg daily from Thursday and Thursday. Solu- Medrol switched to prednisone 30 mg by mouth daily. Blood sugar remains to be high Levemir increased to 30 twice a day 08/01: Patient continues to complain of sore mouth. She has already been treated with nystatin and now on Diflucan. We will add and cool solution 3 times daily. She is currently on 8 L high flow nasal cannula with pulse ox of 92%. Afebrile, heart rate 65, blood pressure 118/72. Repeat blood work reveals WBC 18.45. Hemoglobin 11.1, platelet count 217. Potassium is 2.8 and will be replaced with 120 mEq of potassium. Recheck potassium this afternoon. BUN 57, creatinine 1.1. Blood sugar was low this morning at 46 with repeated 63. Scheduled NovoLog discontinued, Levemir decreased from 30 units twice daily to 40 units once at bedtime C-reactive protein less than 0.4. LDH 395. Liver function tests are elevated with total bilirubin 1.3, AST 62, ALT 130, apply phosphatase 139. CTA of the chest showed no acute pulmonary embolism. Scatte red groundglass opacities and increased lung markings considered atypical pneumonia or pulmonary edema. 08/02 patient examined bedside. Shortness of breath is worsened since yesterday patient is currently on 15 L high flow oxygen. Patient switched to Solu-Medrol 60 every 6 hours. CTA ordered to rule out pulmonary embolism but was negative for PE patient continues remain on Bumex in addition to Zaroxolyn. 08/03 patient examined bedside. Appears comfortable. She is down trended on oxygen need from 15 L to 6 L nasal cannula. Blood sugar appears to be high with the increase in steroids. Continue Solu-Medrol at 60 every 6. Patient initiated on Zosyn by Dr. Ward. Continue Bumex 1 mg IV every 12 in addition to Zaroxolyn. Zaroxolyn increased to 5 mg daily Continue to monitor patient's vitals continue colchicine Protonix 40 twice a day 08/04: Patient is doing better yesterday her oxygen was down to 6 L but the blood to have low-grade temperature review of her chest CAT scan showed some consolidation area around the bronchial tube with scarring from code 19 also shows slight pericardial effusion, echocardiogram will be done today, continue diuretics and be more aggressive with furosemide on the short on the long run. Meanwhile try to decrease her O2 to be under 6 L and hopefully prepare for discharge this week one of the skilled nursing with higher flow to at least between 5 and 6 L for the next 2-3 weeks. 08/05: Patient remain on oxygen require around 5 L nasal cannula, decreased cough, no fever or chills. Echocardiogram result came back with very small amount of pericardial effusion no decompression. Patient is not having any fever or chills. Patient is having significant constipation and plan for discharge tomorrow patient wants to go to subacute rehab most likely to [facility]. 08/06: Patient is having more shortness of breath along with nausea and more GI symptoms morning not clear etiology her oxygen level dropped down she is up to 7 L today try to keep pulse ox above 92 percentile, EKGs on order CK and troponin will be done along with BNP and patient will be going for CTA to exclude any possibility of pulmonary embolism at this point. Patient is having mild anxiety as well we can use small dose of benzodiazepine. Her discharge planning will be delayed at least the next 24 hours until this is better until make sure from cardiology and pulmonary standpoint she stable. 08/07: Patient evaluated, her oxygen noted to drop to 81% on 7L, she was increased back to 10L and currently is saturating in the lower 90s. Clinically she looks good and does not appear to be in distress. Her CT was negative for PE and showed groundglass infiltrates, but improved from last exam. Discharge held due to her hypoxia this morning. Patient was also refusing her Bumex, after discussion with the patient, she is now agreeable. 08/08: Patient's oxygen saturation dropped down into the 70s when she sat at the side of the bed. She is currently seeing with nonrebreather in place. She does not appear to be in acute distress at rest. Pulse ox is 92-100% on high flow na lam cannula at 11 L. She has been afebrile, heart rate 78, blood pressure 144/79. Blood sugars are running between 159 and 202. She is continued on IV Bumex 1 mg every 12 hours, Solu-Medrol 40 mg IV every 8 hours, Zaroxolyn 5 mg daily 08/09: She was seen today resting in bed. She is currently on 8 L nasal cannula and pulse ox is 98%. We will decrease to 6 L and her nurse will recheck pulse ox. Goal will be to wean down to 5 L with possible discharge tomorrow. Discharge plan is for [facility]. Patient has been afebrile, heart rate 80, blood pressure 115/75. Blood sugars are running between 96 and 189. She is currently on Solu-Medrol 40 mg IV every 8 hours. REVIEW OF SYSTEMS CONSTITUTIONAL: Well-developed with no respiratory distress at rest. Denies fevers. Denies chills. EYES: No icterus sclerae, no conjunctivitis. EARS, NOSE, MOUTH, THROAT, and FACE: Reports nasal congestion. No sore throat, lymphadenopathy, carotid bruits or deformity. RESPIRATORY: Reports dyspnea and shortness of breath and cough. Dyspnea with exertion. Dyspnea at rest. CARDIOVASCULAR: Positive PND orthopnea . Denies palpitation with no angina. GASTROINTESTINAL: No Abd pain, Nausea or vomiting, no Diarrhea or constipation, No GI Bleed, no distention or masses. GENITOURINARY: Negative for Hematuria or UTI, no kidney stones. INTEGUMENT/BREAST: Negative for any muscular injury with mild osteoarthritis. Chronic edema. HEMATOLOGIC/LYMPHATIC: Negative for bleed or purpura. MUSCULOSKELTAL: Negative for Myalgia or arthralgia. Significant arthralgia and myalgia. NEURLOGICAL: No LOC, Sz or syncope, blurred vision dizziness or abnormality.. BEHAVIORAL/PSYCH: Negative. ENDOCRLavina blood sugars PHYSICAL EXAMINATION General Appearance: Alert, cooperative, morbidly obese in no respiratory distress. Patient is resting comfortably in bed. Patient is on a nonrebreather mask Neck HEENT: Supple, no lymphadenopathy, no thyroid enlargement, no carotid bruits. Lungs: Decreased breath some bilateral expiratory wheezes. No accessory muscle usage while at rest. Chest Wall: Decrease expansion with deep inspiration no tenderness and no deformity was found on exam, no costochondral pain or discomfort. Heart: Regular rate and rhythm, S1, S2 positive systolic murmur with S3. Back: Symmetric, no curvature, ROM normal, no CVA tenderness. Abdomen: Soft, non-tender, bowel sounds active all four quadrants, no masses, no organomegaly. Extremities: no edema and decreased pulses bilaterally. Pulses: 1+ and symmetric. Skin: Skin color, texture, tugor normal, no rashes or lesions. Neurologic: Alert oriented x3 cranial nerves II through XII intact, no motor deficit, no abnormal balance or gait. ASSESSMENT AND PLAN 1 acute hypoxic respiratory failure secondary to acute Covid pneumonitis with worsening symptoms. Consult with pulmonary medicine shaded. Continue Solu- Medrol 40 mg IV every 8 hours, Bumex 1 mg IV push every 12 hours, Ventolin inhaler every 6 hours as needed, Zaroxolyn 5 mg daily, Tessalon Perles 100 mg 3 times daily, colchicine 0.6 mg daily, vitamin C, vitamin D, zinc, Afrin nasal spray, Lovenox 40 mg subcu daily. 2 acute Covid pneumonitis with worsening symptoms. Continue as in #1. 3 COPD continue albuterol inhaler. 4. Paroxysmal atrial fibrillation, unable to tolerate anticoagulation secondary to acute GI bleed, continue metoprolol 12.5 mg twice daily and flecainide 50 mg twice a day. 5 type 2 diabetes, uncontrolled with hyperglycemia secondary to steroids and e pisodes of hypoglycemia. Continue Accu-Chek with sliding scales coverage continue Lantus 30 units twice daily, NovoLog 3 units scheduled with meals. 6 chronic diastolic heart failure. Continue Bumex IV every 12 hours, Lopressor. 7 peptic ulcer disease and GI prophylaxis: Continue patient on pantoprazole 40 mg daily. 8 chronic anemia: Remain on iron supplement and multivitamins no need for t ransfusion. 9 mild hyponatremia: Most likely SIADH from pneumonia will continue mild gentle hydration repeat chemistry in the next 24 hours. 10 DVT prophylaxis: Patient will be on Lovenox subcutaneous daily. 11 GI prophylaxis: Will be on pantoprazole. 12. Diarrhea. Stool cultures. C. diff negative. Diarrhea most likely secondary to Augmentin. 13. Thrush. Patient has been treated with nystatin, Diflucan and cool solution. CODE STATUS: No Code DISCHARGE PLAN [facility] of tomorrow. Impression and plan of care have been directed as dictated by the signing physician. Leeann Rose nurse practitioner acting as scribe for signing physician. Objective - Vital Signs Vital signs: Vital Signs Temp 97.5 F L 08/09/20 05:40 Pulse 80 08/09/20 05:40 Resp 19 08/09/20 05:40 BP 115/75 02/25/21 05:40 Pulse Ox 92 L 08/09/20 05:40 Intake & Output 08/08/20 08/09/20 08/09/20 18:59 06:59 18:59 Intake Total 600 Output Total 400 Balance 600 -400 Weight 125 kg Intake: Oral 600 Output: Urine 400 Other: Voiding Method Bedpan Bedpan External Catheter # Bowel Movements 1 - Labs CBC & Chem 7: 08/05/20 05:26 08/05/20 05:26 Labs: Abnormal Lab Results - Last 24 Hours (Table) 08/08/20 08/08/20 08/08/20 Range/Units 11:29 16:53 20:25 POC Glucose (mg/dL) 202 H 197 H 189 H (75-99) mg/dL
--- NOTE | 2020-08-09 13:25 | P.PN ---
Subjective Progress Note Date: 08/09/20 Principal diagnosis: CoVID 19 pneumonia 74-year-old female who was seen in the emergency department on 07/16/2020, at 1535. The patient presented with complaints of shortness of breath. The patient has a history of atrial fibrillation, obesity, congestive heart failure, and diabetes. She apparently was diagnosed with COVID 19 infection on July 09. Prior to being tested positive, the patient had 2 weeks of what she describes as a head cold. She started taking vitamins, and Decadron. More recently, she's been getting progressively worse as it relates to her shortness of breath, which now occurs on any activity. She does have some nausea, but denies any vomiting or diarrhea. She denies any chest pain. She denies any genitourinary complaints and lower extremity edema. Apparently her family doctor recommended that she come into the emergency room to be evaluated. A chest x-ray reveals some mild pulmonary interstitial pneumonia, and the CT angiogram revealed no evidence of any central or large pulmonary emboli, but did show extensive groundglass pulmonary interstitial infiltrates, consistent with her diagnosis of COVID19 pneumonia. Unfortunately, she is beyond the window for remdesivir. Currently, she is on 5 L nasal cannula, and her saturations are 99%. Her respiratory rate is 20, and her temperature is 97.6F. Blood pressure is good and heart rate is 71 bpm. Her current white count is 8.09, hemoglobin 10.1, hematocrit 34.7, and platelet count 137,000. Sodium is 135, potassium 4.9, chlorides 102, CO2 25, anion gap 8, BUN 17, and creatinine 0.8. D-dimer is 1.21, ferritin is 624, LDH is 1468, and C-reactive protein is 139. N-terminal proBNP was 1970. Pro-calcitonin level was 0.20. On 07/18/2020 patient seen in follow-up on medical floor, she is currently on 11 L of oxygen, she is awake and alert, she said nobody into the bed, apparently earlier she felt a little dizzy, she feels fatigued, be in no acute distress. Today's labs have been reviewed, showing white blood cell count of 18.5, hemoglobin is 10.4, his inflammatory markers are trending down, LDH is down to 943, CRP is down to 6.6, pro calcitonin level was 0.20. Continues on prophylactic dose of Lovenox, IV Decadron 6 mg daily, colchicine, and zinc On 07/19/2020 patient seen in follow-up on medical floor. She is currently up to 2 L of oxygen, her pulse ox is 91-94%, she states she feels better but she is requiring more oxygen, she states she is coughing up some phlegm. Today's chest x-ray has been reviewed showing central vascularity and interstitial increased, bilateral groundglass opacity within the lungs. And there is persistent elevation of the right hemidiaphragm. Patient seems to have increased edema in her lower extremities, she is currently on a daily dose of oral Bumex 1 mg daily, her lung sounds positive for scattered rhonchi. We will add empiric antibiotics, will afternoon dose of oral Bumex and obtain follow-up chest x-ray tomorrow. Physically she states she is feeling better, she is able to clear some phlegm. On 07/20/2020 patient seen in follow-up on medical floor, her oxygen requirements are continuously increasing, currently up to 15 L of oxygen per high flow nasal cannula and partial nonrebreather and her pulse ox is between 91-95%, afebrile. She is more dyspneic today, her lower extremities remain swollen, we did give the patient a dose of diuretics yesterday, however her neck fluid balance is very difficult to estimate. Her inflammatory markers have been reviewed, and pH is down to 780, and CRP is at 9.4, pro calcitonin level has decreased and is down to 0.12, however d-dimer has trended down and is up to 8.72, and we will adjust the dose of Lovenox to 0.5 mg/kg of body weight twice daily. Based Effexor has been reviewed showing worsening airspace disease, pneumonia and pulmonary edema. The patient is seen today 07/21/2020 in follow-up on the regular medical floor. She is currently sitting up in a chair at the bedside. Awake and alert in no acute distress. She is still requiring 15 L high flow nasal cannula along with 15 L partial rebreather mask. O2 saturations in the low 90s. She is afebrile. She has received 1 unit of convalescent plasma. White count 16.2. Hemoglobin 10.2. Lymphocytes 0.3. Sodium 138. Potassium 3.8. Creatinine 0.8. She is on antibiotics in the form of Augmentin. Continue on vitamin supplements. Remains on colchicine, IV Solu-Medrol, Lovenox. The patient is seen today 07/22/2020 in follow-up on the regular medical floor. She is awake and alert in no acute distress. Sitting up in a chair at the bedside. She is still requiring 15 L high flow nasal cannula along with a partial nonrebreather mask to maintain O2 saturations in the low 90s. Chest x-r ay continues to show bilateral airspace infiltrates however there is some interval improvement. She did receive 1 unit of convalescent plasma. D-dimer 7.56. LDH 531. C-reactive protein 3.3. She remains on colchicine, IV Solu- Medrol, Lovenox, vitamin supplements, Augmentin. The patient is seen today 07/29/2020 in follow-up on the regular medical floor. She is currently sitting up in a chair at the bedside. Awake and alert in no acute distress. She is down to 10 L high flow nasal cannula O2 saturation 97%. She's afebrile. Hemodynamically stable. Chest x-ray shows persistent intersti tial infiltrates. Stable compared to previous. She has received 2 units of convalescent plasma. Blood cultures revealed no growth. Sputum culture positive for Vianey. Blood glucose 194. She remains on bronchodilators, IV Solu-Medrol, Lovenox, Colcrys, Protonix, vitamin supplements. IV Bumex. The patient is seen today 08/03/2020 in follow-up on the regular medical floor. She is currently sitting up at the bedside. Awake and alert in no acute distress. She is currently on 10 L high flow nasal cannula and maintaining O2 saturations in the 90s. This is been dialed down to 6 L and currently 96%. She's afebrile. D-dimer 1.21. Glucose 221. She is improved on Bumex 1 mg IV push every 12 hours. Remains on vitamin supplements, IV Solu-Medrol and colchicine. Antibiotics in the form of Zosyn. The patient is seen today 08/04/2020 in follow-up on the regular medical floor. She is currently resting in bed. Awake and alert in no acute distress. Remains on 6 L high flow nasal cannula with O2 saturation in the mid 90s. She is afebrile. Blood glucose 301. Remains on IV Solu-Medrol, bronchodilators, colchicine, Lovenox, vitamin supplements. Antibiotics in the form of Zosyn. Remains on Bumex and Zaroxolyn. Echocardiogram pending. The patient is seen today 08/08/2020 in follow-up on the regular medical floor. She is currently resting in bed. Awake and alert in no acute distress. She is currently on 11 L high flow nasal cannula with O2 saturation at 100%. She's afebrile. Hemodynamically stable. Staff states she does desaturate into the 70s with minimal exertion. She remains on Bumex 1 mg IV every 12 hours. Continued on bronchodilators, IV Solu-Medrol, colchicine, vitamin supplements. Lovenox for DVT prophylaxis. Echocardiogram revealed preserved left ventricular systolic function with ejection fraction 50-55%. The patient is seen today 08/09/2020 in follow-up on the regular medical floor. She is awake and alert in no acute distress. She remains quite dyspneic with minimal exertion. She has been weaned down to 4 L high flow nasal cannula. D uring exertion she needs to have it increased briefly though. Remains afebrile. Hemodynamically stable. Blood sugar 189. She remains on Bumex 1 mg IV every 12 hours. Continued on bronchodilators, IV Solu-Medrol, colchicine, vitamin supplements. Lovenox for DVT prophylaxis. Objective - Vital Signs Vital signs: Vital Signs Temp 97.8 F 08/09/20 10:26 Pulse 77 08/09/20 10:26 Resp 18 08/09/20 10:26 BP 119/70 08/09/20 10:26 Pulse Ox 97 08/09/20 10:26 Intake & Output 08/08/20 08/09/20 08/09/20 18:59 06:59 18:59 Intake Total 600 Output Total 400 Balance 600 -400 Weight 125 kg Intake: Oral 600 Output: Urine 400 Other: Voiding Method Bedpan Bedpan External Catheter # Bowel Movements 1 - Exam GENERAL EXAM: Alert, very pleasant, obese 75-year-old female patient 4 L of high flow oxygen, in no acute distress HEAD: Normocephalic/atraumatic. EYES: Normal reaction of pupils, equal size. Conjunctiva pink, sclera white. NOSE: Clear with pink turbinates. THROAT: No erythema or exudates. NECK: No masses, no JVD, no thyroid enlargement, no adenopathy. CHEST: No chest wall deformity. Symmetrical expansion. LUNGS: Equal air entry with bilateral scattered rhonchi CVS: Regular rate and rhythm, normal S1 and S2, no gallops, no murmurs, no rubs ABDOMEN: Soft, nontender. No hepatosplenomegaly, normal bowel sounds, no guarding or rigidity. EXTREMITIES: No clubbing, no edema, no cyanosis, 2+ pulses and upper and lower extremities. MUSCULOSKELETAL: Muscle strength and tone normal. SPINE: No scoliosis or deformity SKIN: No rashes CENTRAL NERVOUS SYSTEM: No focal deficits, tone is normal in all 4 extremities. PSYCHIATRIC: Alert and oriented -3. Appropriate affect. Intact judgment and insight. - Labs CBC & Chem 7: 08/05/20 05:26 08/05/20 05:26 Labs: Abnormal Lab Results - Last 24 Hours (Table) 08/08/20 08/08/20 08/09/20 Range/Units 16:53 20:25 11:44 POC Glucose (mg/dL) 197 H 189 H 189 H (75-99) mg/dL Assessment and Plan Assessment: 1 Acute hypoxemic respiratory failure secondary to COVID 19 pneumonia. Currently on 4 L high flow nasal cannula 2 History of diabetes mellitus. 3 History of atrial fibrillation. 4 History of congestive heart failure. 5 History of osteoarthritis. 6 History of chronic back pain. 7 Status post lap band surgery for obesity. 8 History of deafness. Plan: The patient was seen and evaluated by Dr. Rome Continue Bumex, Zaroxolyn Continue steroids, bronchodilators Remains on colchicine, Lovenox Titrate down the FiO2 as tolerated DO NOT RESUSCITATE/DO NOT INTUBATE CODE STATUS Plan is to discharge to [facility] I, the cosigning physician, performed a history & physical examination of the patient. Lungs sounds bilateral scattered rhonchi. Maintaining good O2 saturations in the 90s on 4 L high flow nasal cannula. I discussed the assessment and plan of care with my nurse practitioner, Luisa Lubin. I attest to the above note as dictated by her.
[2020-08-09 16:49] LABS: Glucose,Whole Blood 196 mg/dL (75-99)
[2020-08-09 20:04] LABS: Glucose,Whole Blood 277 mg/dL (75-99)
[2020-08-09] MEDS: MELATONIN 3 MG TABLET PO SCH (21:44)
[2020-08-09] MEDS: LINAGLIPTIN 5 MG TABLET PO SCH (21:44)
[2020-08-10] MEDS: methylPREDNISolone SOD SUCCI 40 MG/ML 1 ML VIAL IV SCH ×2 (00:51→08:24)
[2020-08-10] MEDS: Acetaminophen-Codeine 300-30mg TAB PO PRN (01:04)
[2020-08-10 06:56] LABS: Glucose,Whole Blood 344 mg/dL (75-99)
[2020-08-10] MEDS: INSULIN ASPART (NovoLOG) 100 UNIT/ML VIAL SQ SCH ×7 (07:28→20:16)
[2020-08-10] MEDS: BUMETANIDE 0.25 MG/ML 4 ML VIAL IVP SCH ×2 (08:24→20:28)
[2020-08-10] MEDS: ENOXAPARIN 40 MG/0.4 ML SYRINGE SQ SCH (08:24)
[2020-08-10] MEDS: INSULIN DETEMIR (LEVEMIR) 100 UNIT/ML SYR SQ SCH ×2 (08:24→20:16)
[2020-08-10] MEDS: CHOLECALCIFEROL 25 MCG (1000 IU) TABLET PO SCH (08:25)
[2020-08-10] MEDS: POTASSIUM CHLORIDE ER 20 MEQ TAB.ER PO SCH (08:26)
[2020-08-10] MEDS: ALBUTEROL HFA INHALER INHALATION PRN ×3 (08:26→16:10)
[2020-08-10] MEDS: ZINC SULFATE 220 MG CAP PO SCH (08:26)
[2020-08-10] MEDS: FLECAINIDE 50 MG TAB PO SCH ×2 (08:26→20:28)
[2020-08-10] MEDS: METOPROLOL TARTRATE 12.5 MG TAB PO SCH (08:27)
[2020-08-10] MEDS: ASCORBIC ACID 500 MG TAB PO SCH (08:27)
[2020-08-10] MEDS: BENZONATATE 100 MG CAP PO SCH ×3 (08:28→20:17)
[2020-08-10] MEDS: metOLazone 5 MG TAB PO SCH (08:28)
[2020-08-10] MEDS: CHOLESTYRAMINE (WITH SUGAR) 4 GM PACKET PO SCH ×2 (08:28→17:02)
[2020-08-10] MEDS: PANTOPRAZOLE 40 MG TABLET PO SCH ×2 (08:28→20:17)
[2020-08-10] MEDS: MAG HYDROX/AL HYDROX/SIMETH 30 ML, LIDOCAINE VISCOUS 30 ML, NYSTATIN 100,000 UNIT/ML SU... PO SCH ×9 (08:28→20:17)
[2020-08-10] MEDS: COLCHICINE 0.6 MG EACH PO SCH (08:29)
[2020-08-10] MEDS: OXYMETAZOLINE 0.05% NASL SPRAY 1 SPRAY BOTTLE NASAL SCH ×2 (08:29→20:16)
--- NOTE | 2020-08-10 10:58 | CDI ---
Documentation Clarification Form Date: 08/10/2020 10:00:15 AM From: Michelle Leonard RN CCDS Admit Date: 07/16/2020 05:32:00 PM Patient Name: Bernice Chou Visit Number: [id number] Discharge Date: ATTENTION: The Clinical Documentation Specialists (CDI) and [facility] Coding Staff appreciate your assistance in clarifying documentation. Please respond to the clarification below the line at the bottom and electronically sign. The CDI & [facility] Coding staff will review the response and follow-up if needed. Please note: Queries are made part of the Legal Health Record. If you have any questions, please contact the author of this message via ITS. Dr. Ld Betancur A Stage II bilateral buttock Pressure Injury is documented in the Nursing wound assessment 08/05 through 08/10. History/Risk Factors: 74-year-old female presents to the ED with worsening dyspnea, severe hypoxia, worsening persistent cough productive of phlegm with blood. Medical History: Atrial Fib, Diastolic Heart Failure and DM. Documented in the H&P 07/16. Clinical Indicators: Documented in the Nursing Wound Assessment 08/05 through 08/10. Location: Bilateral Buttock Wound description: Scant amount of serosanguinous drainage with slight odor. Documented in Nursing Integumentary Assessment 07/28 -08/10. Location: Bilateral Buttock. Wound description: Skin condition skin shear. Temperature warm. Moisture Moist. Texture Fragile. Skin Color Erythema. Location: Bilateral Buttock Wound description: Skin condition discoloration. Temperature warm. Moisture Dry. Texture Intact. Skin color Erythema. Per Physical Therapy: 08/01 Maximum assist. 08/02- : Total assist, two people. Treatment: 07/26 Barrier cream d/c 07/31; 07/28 Opti foam gentle liquid; 07/31 Hydrocolloid Exuderm: 07/31 A&D ointment and ABD pad d/c 08/08. 08/05 Saline Irrigant Elements for accurate and compliant documentation of an ulcer: *The location/laterality of the ulcer *Etiology (decubitus/pressure, diabetic, PVD) *Stage I-IV, Unstageable, Suspected Deep Tissue Injury (To the deepest stage) *If the ulcer was present at admission (POA) or occurred after admission In your professional opinion, can you please clarify the diagnosis, location and laterality: Stage 2 Pressure/Decubitus Ulcer (Partial thickness, loss of dermis, pink wound bed) Stage 3 Pressure/Decubitus Ulcer (Full thickness tissue loss) Other condition, please specify Unable to determine Please indicate etiology of pressure ulcer (if known). Documented in DCS on 08/13 [place] [facility], Dr. Betancur Bilateral buttocks ulcer stage II, shearing -type injury. (Last Revision: March 2017) JERSON
--- NOTE | 2020-08-10 11:17 | P.PN ---
Subjective Progress Note Date: 08/10/20 74-year-old morbidly obese female one of my office patient with past medical history of A. fib with RVR, history of acute gastrointestinal bleed with anemia, history of type 2 diabetes, history of obstructive sleep apnea, mild reactive airway/COPD and mild diastolic congestive heart failure who has been seen in the office the last week for acute Covid, patient was diagnosed on the ended up going for monoclonal anti-body infusion on the . Patient called office with worsening symptoms was seen in virtual visit and was recommended to go to the hospital to be admitted. Patient has been having worsening dyspnea and shortness of breath along with severe hypoxia worsening persistent cough prod uctive of phlegm along with mild twinges of blood. Patient was seen at the emergency department her pulse ox was in the 80 percentile with a few breathing treatment along with 3 L of O2 her pulse ox was increased to the low 90. Patient chest x-ray showed severe interstitial pneumonitis. Her d-dimer was elevated and ended up going for CTA showed extensive ground glass pulmonary interstitial edema could be related to RDS no pleural effusion found at the time. Patient was started on steroids along with updraft treatment O2 will consult pulmonary admit patient to the hospital. 2/2: The patient states that she is feeling much better today. She states that she did not sleep well last night. She is found sitting up in recliner and appears to be comfortable and in no acute distress. She has been afebrile, heart rate 72, blood pressure 160/83, pulse ox 92-98% on 5 L nasal cannula. Consult in place from pulmonary medicine. Blood sugars are running in the 200s. WBC 8, hemoglobin 10.1. Repeat lactic acid 1.7. IV fluids will be discontinued. Patient is on her home dose of Bumex. 2/3: Patient has been afebrile, heart rate 79, blood pressure 162/69, pulse ox 93% on 10 L nasal cannula. Patient complains of shortness of breath and feeling cold. She continues to cough. WBC is 18.5, hemoglobin 10.4, electrolytes normal. Creatinine 0.9. Total bilirubin 0.9, AST 88, ALT 44, alkaline phosphatase 143, LDH 943, C reactive protein 6.6. Overall, inflammatory markers are improving. Patient has been seen by pulmonary medicine and is outside of the window for Remdesivir treatment. Colchicine was added 07/19:tates that she was unable to sleep all night. She was on a nonrebreather and she felt she had a panic attack. She states that she is normally claustrophobic. She is currently seen on 15 L with pulse ox of 91%. She appears to be comfortable at rest. She is complaining of dark brown sputum production. She is also having mild nosebleed with dried blood only. Blood sugars are running between 257-300. D-dimer 8.72. LDH and CRP are pending. Patient has been afebrile, heart rate 82, blood pressure 144/51. She will probably not be ready for discharge until Thursday. 07/20: Patient has developed increasing shortness of breath overnight. She is now requiring high flow nasal cannula and nonrebreather with pulse ox of 91-95%. She has been afebrile, heart rate 77, blood pressure 178/79. Blood sugars are running between 132 and 261. Convalescent plasma has been ordered by pulmonary medicine today. Steroids have been changed to Solu-Medrol 60 mg IV every 6 melly rs. Lovenox increased to 70 mg subcu twice daily. Antibiotics in the form of Augmentin. 07/21: Patient states that she is feeling better compared to yesterday. She continues to be on 15 L high flow not nasal cannula and nonrebreather. We'll continue to attempt to wean. Receiving Bumex 2 mg IV. Continues to have lower extremity swelling bilaterally. Patient received [address] asma. She was complaining of dryness to bilateral nares. Flonase added. Patient remains afebrile, pulse rate 56, blood pressure 167/73, pulse ox 94% on nonrebreather and high flow oxygen. Discussed with patient's CODE STATUS. Patient states that she does not want to be intubated or have CPR performed. We will change her CODE STATUS to no code. 07/22: Patient is found sitting up in chair continue to utilize 15 L of high flow oxygen be significantly cannula nonrebreather pulse oxing 98%. Patient states that she is feeling better able to breathe easier. She has been having diarrhea for the past few days 3-4 episodes yesterday and only one today. Patient denies any abdominal discomfort or blood in stool. She is currently on Augmentin. We will do stool cultures including C. diff. 07/23: Patient remains on high flow nasal cannula 15 L with nonrebreather at her bedside. She is pulse oxing 91 and 94%. She's been afebrile, heart rate in the 70s, blood pressure 123/74. Blood sugars have been between 193 and 339. Anticipate need for oxygen at home. 07/24: Patient is on oxygen at 15 L high flow nasal cannula with pulse ox of 95%. She has been afebrile, heart rate 74, blood pressure 135/75. WBC 9.8, hemoglobin 10.3, platelet count 95. Sodium 136, potassium 3. former be replaced . BUN 35 and creatinine 1. Blood sugars running in the 200s. AST 37, ALT 48. Anticipate that the patient will require home oxygen at the time of discharge. 07/25: Pulse ox is 93% on 15 L high flow nasal cannula and partial rebreather. She's been afebrile, heart rate 89, blood pressure 127/74. Blood sugars running between 128 and 262. Repeat chest x-ray reveals stable findings. Correlate for pneumonia. Patient has been maintained on Augmentin, colchicine, Lovenox, IV Solu-Medrol and supplements. We'll order one additional dose of Bumex this afternoon. 07/26: Patient continues to have cough with hemoptysis, she has shortness of breath with minimal activity. Pulse ox is 91-95% on 15 L high flow nasal cannula. We will add in Tessalon pearls. She continues to have thrush for whic h she is on Diflucan. Bumex increased to 2 mg IV push twice daily. She has been afebrile, heart rate 77, blood pressure 143/68. Repeat blood work reveals WBC 9, hemoglobin 11.2, platelet count 87. Sodium 136, potassium 3.7, CO2 34, BUN 44 and creatinine 0.8. Blood sugars are running 186-237. AST at 73, ALT 73. Repeat LDH 732. C-reactive protein less than 5. Patient will continue treatment in the hospital until oxygenation is improved and she is down to 5 or 6 L nasal cannula. 07/27: Patient is pulse oxing 91-95% on 15 L high flow nasal cannula. She has been afebrile, heart rate 80, blood pressure 139/81. Blood sugars are running between 163 and 246. Patient is continued on IV Solu-Medrol, supplements, Lovenox. 07/28: Patient has been diuresing very well, she has significant weight loss, per patient she has now lost 45 pounds for the past 2 weeks, shortness breath is also much better, pulse oximetry is now are between 90-96%, 11 L nasal cannula, vital signs stable, no fever no chills, no diarrhea, decreas Bumex now to 2 mg daily, she has dyspnea on exertion, minimal conversational dyspnea however this has improved. No lightheadedness no falls 07/29 patient feels not somewhat worse, she seems to slightly be better, has lost 2 more pounds, still diuresing at nighttime, complains of being tired or sleepy during the day, not sleeping well at night. Appetite is much better, no nausea no respiratory events, still 8 L nasal cannula 91%, still has anasarca mainly in the legs, resolved edema in the upper extremities , start melatonin for sleep hygiene mosque, on Zaroxolyn Thursday 2.5, still on Solu-Medrol 60 mg every 6 hours, Bumex at 2 mg IV daily. Potassium at 3.4, being replaced 07/30: Blood sugars are in the low 200s, Levemir will be increased to 50 units daily which will start tomorrow. She is currently on Solu-Medrol 60 mg IV every 6 hours. Patient has been afebrile, heart rate 75, blood pressure 108/56. Pulse ox is 91-94% on 7 L high flow nasal cannula which is an improvement over the weekend. Patient does desaturate with exertion. She has been continued onIV Bumex 2 mg daily, in addition to Zaroxolyn 2.5 mg on Thursday and Thursday. She is diuresing, she is in -2.5 L fluid balance over the last 24 hours. Lower extremity edema is improved. Her stool culture was positive for Vianey albicans, and so was her sputum culture. She is on Diflucan. Her last chest x- ray was yesterday showing persistent interstitial infiltrates. Afrin spray added. 07/31 patient examined bedside. Shortness of breath is improved currently on 4- 1/2 L of oxygen saturating well at 93-95%. The patient's breathing is better. Sinus congestion is better with Afrin spray. Continue Bumex at 2 mg IV daily. Metolazone increased to 2.5 mg daily from Thursday and Thursday. Solu- Medrol switched to prednisone 30 mg by mouth daily. Blood sugar remains to be high Levemir increased to 30 twice a day 08/01: Patient continues to complain of sore mouth. She has already been treated with nystatin and now on Diflucan. We will add and cool solution 3 times daily. She is currently on 8 L high flow nasal cannula with pulse ox of 92%. Afebrile, heart rate 65, blood pressure 118/72. Repeat blood work reveals WBC 18.45. Hemoglobin 11.1, platelet count 217. Potassium is 2.8 and will be replaced with 120 mEq of potassium. Recheck potassium this afternoon. BUN 57, creatinine 1.1. Blood sugar was low this morning at 46 with repeated 63. Scheduled NovoLog discontinued, Levemir decreased from 30 units twice daily to 40 units once at bedtime C-reactive protein less than 0.4. LDH 395. Liver function tests are elevated with total bilirubin 1.3, AST 62, ALT 130, apply phosphatase 139. CTA of the chest showed no acute pulmonary embolism. Scatte red groundglass opacities and increased lung markings considered atypical pneumonia or pulmonary edema. 08/02 patient examined bedside. Shortness of breath is worsened since yesterday patient is currently on 15 L high flow oxygen. Patient switched to Solu-Medrol 60 every 6 hours. CTA ordered to rule out pulmonary embolism but was negative for PE patient continues remain on Bumex in addition to Zaroxolyn. 08/03 patient examined bedside. Appears comfortable. She is down trended on oxygen need from 15 L to 6 L nasal cannula. Blood sugar appears to be high with the increase in steroids. Continue Solu-Medrol at 60 every 6. Patient initiated on Zosyn by Dr. Ward. Continue Bumex 1 mg IV every 12 in addition to Zaroxolyn. Zaroxolyn increased to 5 mg daily Continue to monitor patient's vitals continue colchicine Protonix 40 twice a day 08/04: Patient is doing better yesterday her oxygen was down to 6 L but the blood to have low-grade temperature review of her chest CAT scan showed some consolidation area around the bronchial tube with scarring from code 19 also shows slight pericardial effusion, echocardiogram will be done today, continue diuretics and be more aggressive with furosemide on the short on the long run. Meanwhile try to decrease her O2 to be under 6 L and hopefully prepare for discharge this week one of the senior living with higher flow to at least between 5 and 6 L for the next 2-3 weeks. 08/05: Patient remain on oxygen require around 5 L nasal cannula, decreased cough, no fever or chills. Echocardiogram result came back with very small amount of pericardial effusion no decompression. Patient is not having any fever or chills. Patient is having significant constipation and plan for discharge tomorrow patient wants to go to subacute rehab most likely to [facility]. 08/06: Patient is having more shortness of breath along with nausea and more GI symptoms morning not clear etiology her oxygen level dropped down she is up to 7 L today try to keep pulse ox above 92 percentile, EKGs on order CK and troponin will be done along with BNP and patient will be going for CTA to exclude any possibility of pulmonary embolism at this point. Patient is having mild anxiety as well we can use small dose of benzodiazepine. Her discharge planning will be delayed at least the next 24 hours until this is better until make sure from cardiology and pulmonary standpoint she stable. 08/07: Patient evaluated, her oxygen noted to drop to 81% on 7L, she was increased back to 10L and currently is saturating in the lower 90s. Clinically she looks good and does not appear to be in distress. Her CT was negative for PE and showed groundglass infiltrates, but improved from last exam. Discharge held due to her hypoxia this morning. Patient was also refusing her Bumex, after discussion with the patient, she is now agreeable. 08/08: Patient's oxygen saturation dropped down into the 70s when she sat at the side of the bed. She is currently seeing with nonrebreather in place. She does not appear to be in acute distress at rest. Pulse ox is 92-100% on high flow na lam cannula at 11 L. She has been afebrile, heart rate 78, blood pressure 144/79. Blood sugars are running between 159 and 202. She is continued on IV Bumex 1 mg every 12 hours, Solu-Medrol 40 mg IV every 8 hours, Zaroxolyn 5 mg daily 08/09: She was seen today resting in bed. She is currently on 8 L nasal cannula and pulse ox is 98%. We will decrease to 6 L and her nurse will recheck pulse ox. Goal will be to wean down to 5 L with possible discharge tomorrow. Discharge plan is for [facility]. Patient has been afebrile, heart rate 80, blood pressure 115/75. Blood sugars are running between 96 and 189. She is currently on Solu-Medrol 40 mg IV every 8 hours. 08/10: Pulse ox is 91-95% on 6 L nasal cannula. The patient continues to desaturate with minimal movement. She has been afebrile, heart rate 74, blood pressure 97/64. Blood sugars overnight were elevated at 196-344 this morning. No medication changes have been made. Plan is to continue current therapy, over the weekend and plan for discharge to [facility] on Thursday. REVIEW OF SYSTEMS CONSTITUTIONAL: Well-developed with no respiratory distress at rest. Denies fevers. Denies chills. EYES: No icterus sclerae, no conjunctivitis. EARS, NOSE, MOUTH, THROAT, and FACE: Reports nasal congestion. No sore throat, lymphadenopathy, carotid bruits or deformity. RESPIRATORY: Reports dyspnea and shortness of breath and cough. Dyspnea with minimal exertion. CARDIOVASCULAR: Positive PND orthopnea . Denies palpitation with no angina. GASTROINTESTINAL: No Abd pain, Nausea or vomiting, no Diarrhea or constipation, No GI Bleed, no distention or masses. GENITOURINARY: Negative for Hematuria or UTI, no kidney stones. INTEGUMENT/BREAST: Negative for any muscular injury with mild osteoarthritis. Chronic edema. HEMATOLOGIC/LYMPHATIC: Negative for bleed or purpura. MUSCULOSKELTAL: Negative for Myalgia or arthralgia. Significant arthralgia and myalgia. NEURLOGICAL: No LOC, Sz or syncope, blurred vision dizziness or abnormality.. BEHAVIORAL/PSYCH: Negative. ENDOCRINE: Elevated blood sugars PHYSICAL EXAMINATION General Appearance: Alert, cooperative, morbidly obese in no respiratory distress. Patient is resting comfortably in bed. Patient is on nasal cannula. Neck HEENT: Supple, no lymphadenopathy, no thyroid enlargement, no carotid b ruits. Lungs: Bilateral scattered rhonchi. No accessory muscle usage while at rest. Chest Wall: Decrease expansion with deep inspiration no tenderness and no deformity was found on exam, no costochondral pain or discomfort. Heart: Regular rate and rhythm, S1, S2 positive systolic murmur with S3. Back: Symmetric, no curvature, ROM normal, no CVA tenderness. Abdomen: Soft, non-tender, bowel sounds active all four quadrants, no masses, no organomegaly. Extremities: no edema and decreased pulses bilaterally. Pulses: 1+ and symmetric. Skin: Skin color, texture, tugor normal, no rashes or lesions. Neurologic: Alert oriented x3 cranial nerves II through XII intact, no motor deficit, no abnormal balance or gait. ASSESSMENT AND PLAN 1 acute hypoxic respiratory failure secondary to acute Covid pneumonitis with worsening symptoms. Consult with pulmonary medicine shaded. Continue Solu- Medrol 40 mg IV every 8 hours, Bumex 1 mg IV push every 12 hours, Ventolin inhaler every 6 hours as needed, Zaroxolyn 5 mg daily, Tessalon Perles 100 mg 3 times daily, colchicine 0.6 mg daily, vitamin C, vitamin D, zinc, Afrin nasal spray, Lovenox 40 mg subcu daily. Continue current regime and monitor. 2 acute Covid pneumonitis with worsening symptoms. Continue as in #1. 3 COPD continue albuterol inhaler. 4. Paroxysmal atrial fibrillation, unable to tolerate anticoagulation secondary to acute GI bleed, continue metoprolol 12.5 mg twice daily and flecainide 50 mg twice a day. 5 type 2 diabetes, uncontrolled with hyperglycemia secondary to steroids and episodes of hypoglycemia. Continue Accu-Chek with sliding scales coverage continue Lantus 30 units twice daily, NovoLog 3 units scheduled with meals. 6 chronic diastolic heart failure. Continue Bumex IV every 12 hours, Lopressor. 7 peptic ulcer disease and GI prophylaxis: Continue patient on pantoprazole 40 mg daily. 8 chronic anemia: Remain on iron supplement and multivitamins no need for transfusion. 9 mild hyponatremia: Most likely SIADH from pneumonia will continue mild gentle hydration repeat chemistry in the next 24 hours. 10 DVT prophylaxis: Patient will be on Lovenox subcutaneous daily. 11 GI prophylaxis: Will be on pantoprazole. 12. Diarrhea. Stool cultures. C. diff negative. Diarrhea most likely secondary to Augmentin. 13. Thrush. Patient has been treated with nystatin, Diflucan and cool solution. 14. Bilateral buttocks ulcer stage II, shearing-type injury. Continue local [facility]. CODE STATUS: No Code DISCHARGE PLAN [facility] on Thursday. Impression and plan of care have been directed as dictated by the signing physician. Leeann Rose nurse practitioner acting as scribe for signing physician. Objective - Vital Signs Vital signs: Vital Signs Temp 97.4 F L 08/10/20 07:23 Pulse 74 08/10/20 07:23 Resp 18 08/10/20 08:37 BP 97/64 08/10/20 07:23 Pulse Ox 95 08/10/20 08:37 Intake & Output 08/09/20 08/10/20 08/10/20 18:59 06:59 18:59 Output Total 875 Balance -875 Weight 125.2 kg Output: Urine 875 Other: Voiding Method Bedpan External Catheter # Voids 3 - Labs CBC & Chem 7: 08/05/20 05:26 08/05/20 05:26 Labs: Abnormal Lab Results - Last 24 Hours (Table) 08/09/20 08/09/20 08/09/20 Range/Units 11:44 16:38 20:03 POC Glucose (mg/dL) 189 H 196 H 277 H (75-99) mg/dL 08/10/20 Range/Units 06:54 POC Glucose (mg/dL) 344 H (75-99) mg/dL
[2020-08-10 11:53] LABS: Glucose,Whole Blood 302 mg/dL (75-99)
--- NOTE | 2020-08-10 13:45 | P.PN ---
Subjective Progress Note Date: 08/10/20 Principal diagnosis: CoVID 19 pneumonia 74-year-old female who was seen in the emergency department on 07/16/2020, at 1535. The patient presented with complaints of shortness of breath. The patient has a history of atrial fibrillation, obesity, congestive heart failure, and diabetes. She apparently was diagnosed with COVID 19 infection on July 09. Prior to being tested positive, the patient had 2 weeks of what she describes as a head cold. She started taking vitamins, and Decadron. More recently, she's been getting progressively worse as it relates to her shortness of breath, which now occurs on any activity. She does have some nausea, but denies any vomiting or diarrhea. She denies any chest pain. She denies any genitourinary complaints and lower extremity edema. Apparently her family doctor recommended that she come into the emergency room to be evaluated. A chest x-ray reveals some mild pulmonary interstitial pneumonia, and the CT angiogram revealed no evidence of any central or large pulmonary emboli, but did show extensive groundglass pulmonary interstitial infiltrates, consistent with her diagnosis of COVID19 pneumonia. Unfortunately, she is beyond the window for remdesivir. Currently, she is on 5 L nasal cannula, and her saturations are 99%. Her respiratory rate is 20, and her temperature is 97.6F. Blood pressure is good and heart rate is 71 bpm. Her current white count is 8.09, hemoglobin 10.1, hematocrit 34.7, and platelet count 137,000. Sodium is 135, potassium 4.9, chlorides 102, CO2 25, anion gap 8, BUN 17, and creatinine 0.8. D-dimer is 1.21, ferritin is 624, LDH is 1468, and C-reactive protein is 139. N-terminal proBNP was 1970. Pro-calcitonin level was 0.20. On 07/18/2020 patient seen in follow-up on medical floor, she is currently on 11 L of oxygen, she is awake and alert, she said nobody into the bed, apparently earlier she felt a little dizzy, she feels fatigued, be in no acute distress. Today's labs have been reviewed, showing white blood cell count of 18.5, hemoglobin is 10.4, his inflammatory markers are trending down, LDH is down to 943, CRP is down to 6.6, pro calcitonin level was 0.20. Continues on prophylactic dose of Lovenox, IV Decadron 6 mg daily, colchicine, and zinc On 07/19/2020 patient seen in follow-up on medical floor. She is currently up to 2 L of oxygen, her pulse ox is 91-94%, she states she feels better but she is requiring more oxygen, she states she is coughing up some phlegm. Today's chest x-ray has been reviewed showing central vascularity and interstitial increased, bilateral groundglass opacity within the lungs. And there is persistent elevation of the right hemidiaphragm. Patient seems to have increased edema in her lower extremities, she is currently on a daily dose of oral Bumex 1 mg daily, her lung sounds positive for scattered rhonchi. We will add empiric antibiotics, will afternoon dose of oral Bumex and obtain follow-up chest x-ray tomorrow. Physically she states she is feeling better, she is able to clear some phlegm. On 07/20/2020 patient seen in follow-up on medical floor, her oxygen requirements are continuously increasing, currently up to 15 L of oxygen per high flow nasal cannula and partial nonrebreather and her pulse ox is between 91-95%, afebrile. She is more dyspneic today, her lower extremities remain swollen, we did give the patient a dose of diuretics yesterday, however her neck fluid balance is very difficult to estimate. Her inflammatory markers have been reviewed, and pH is down to 780, and CRP is at 9.4, pro calcitonin level has decreased and is down to 0.12, however d-dimer has trended down and is up to 8.72, and we will adjust the dose of Lovenox to 0.5 mg/kg of body weight twice daily. Based Effexor has been reviewed showing worsening airspace disease, pneumonia and pulmonary edema. The patient is seen today 07/21/2020 in follow-up on the regular medical floor. She is currently sitting up in a chair at the bedside. Awake and alert in no acute distress. She is still requiring 15 L high flow nasal cannula along with 15 L partial rebreather mask. O2 saturations in the low 90s. She is afebrile. She has received 1 unit of convalescent plasma. White count 16.2. Hemoglobin 10.2. Lymphocytes 0.3. Sodium 138. Potassium 3.8. Creatinine 0.8. She is on antibiotics in the form of Augmentin. Continue on vitamin supplements. Remains on colchicine, IV Solu-Medrol, Lovenox. The patient is seen today 07/22/2020 in follow-up on the regular medical floor. She is awake and alert in no acute distress. Sitting up in a chair at the bedside. She is still requiring 15 L high flow nasal cannula along with a partial nonrebreather mask to maintain O2 saturations in the low 90s. Chest x-r ay continues to show bilateral airspace infiltrates however there is some interval improvement. She did receive 1 unit of convalescent plasma. D-dimer 7.56. LDH 531. C-reactive protein 3.3. She remains on colchicine, IV Solu- Medrol, Lovenox, vitamin supplements, Augmentin. The patient is seen today 07/29/2020 in follow-up on the regular medical floor. She is currently sitting up in a chair at the bedside. Awake and alert in no acute distress. She is down to 10 L high flow nasal cannula O2 saturation 97%. She's afebrile. Hemodynamically stable. Chest x-ray shows persistent intersti tial infiltrates. Stable compared to previous. She has received 2 units of convalescent plasma. Blood cultures revealed no growth. Sputum culture positive for Vianey. Blood glucose 194. She remains on bronchodilators, IV Solu-Medrol, Lovenox, Colcrys, Protonix, vitamin supplements. IV Bumex. The patient is seen today 08/03/2020 in follow-up on the regular medical floor. She is currently sitting up at the bedside. Awake and alert in no acute distress. She is currently on 10 L high flow nasal cannula and maintaining O2 saturations in the 90s. This is been dialed down to 6 L and currently 96%. She's afebrile. D-dimer 1.21. Glucose 221. She is improved on Bumex 1 mg IV push every 12 hours. Remains on vitamin supplements, IV Solu-Medrol and colchicine. Antibiotics in the form of Zosyn. The patient is seen today 08/04/2020 in follow-up on the regular medical floor. She is currently resting in bed. Awake and alert in no acute distress. Remains on 6 L high flow nasal cannula with O2 saturation in the mid 90s. She is afebrile. Blood glucose 301. Remains on IV Solu-Medrol, bronchodilators, colchicine, Lovenox, vitamin supplements. Antibiotics in the form of Zosyn. Remains on Bumex and Zaroxolyn. Echocardiogram pending. The patient is seen today 08/08/2020 in follow-up on the regular medical floor. She is currently resting in bed. Awake and alert in no acute distress. She is currently on 11 L high flow nasal cannula with O2 saturation at 100%. She's afebrile. Hemodynamically stable. Staff states she does desaturate into the 70s with minimal exertion. She remains on Bumex 1 mg IV every 12 hours. Continued on bronchodilators, IV Solu-Medrol, colchicine, vitamin supplements. Lovenox for DVT prophylaxis. Echocardiogram revealed preserved left ventricular systolic function with ejection fraction 50-55%. The patient is seen today 08/09/2020 in follow-up on the regular medical floor. She is awake and alert in no acute distress. She remains quite dyspneic with minimal exertion. She has been weaned down to 4 L high flow nasal cannula. D uring exertion she needs to have it increased briefly though. Remains afebrile. Hemodynamically stable. Blood sugar 189. She remains on Bumex 1 mg IV every 12 hours. Continued on bronchodilators, IV Solu-Medrol, colchicine, vitamin supplements. Lovenox for DVT prophylaxis. The patient is seen today August 10 2020 in follow-up on the regular medical floor. She is up in a chair at the bedside. Awake and alert in no acute distress. Currently maintaining O2 saturations in the 90s on 6 L high flow nasal cannula. She's been afebrile. Glucose 302. She remains on IV Bumex. Continued on bronchodilators, IV Solu-Medrol, colchicine, vitamin supplements. Lovenox for DVT prophylaxis. Objective - Vital Signs Vital signs: Vital Signs Temp 97.4 F L 08/10/20 07:23 Pulse 74 08/10/20 07:23 Resp 18 08/10/20 08:37 BP 97/64 08/10/20 07:23 Pulse Ox 95 08/10/20 08:37 Intake & Output 02/25/21 02/26/21 02/26/21 18:59 06:59 18:59 Output Total 875 Balance -875 Weight 125.2 kg Output: Urine 875 Other: Voiding Method Bedpan External Catheter # Voids 3 - Exam GENERAL EXAM: Alert, very pleasant, obese 75-year-old female patient 6 L of high flow oxygen, in no acute distress HEAD: Normocephalic/atraumatic. EYES: Normal reaction of pupils, equal size. Conjunctiva pink, sclera white. NOSE: Clear with pink turbinates. THROAT: No erythema or exudates. NECK: No masses, no JVD, no thyroid enlargement, no adenopathy. CHEST: No chest wall deformity. Symmetrical expansion. LUNGS: Equal air entry with bilateral scattered rhonchi CVS: Regular rate and rhythm, normal S1 and S2, no gallops, no murmurs, no rubs ABDOMEN: Soft, nontender. No hepatosplenomegaly, normal bowel sounds, no guarding or rigidity. EXTREMITIES: No clubbing, no edema, no cyanosis, 2+ pulses and upper and lower extremities. MUSCULOSKELETAL: Muscle strength and tone normal. SPINE: No scoliosis or deformity SKIN: No rashes CENTRAL NERVOUS SYSTEM: No focal deficits, tone is normal in all 4 extremities. PSYCHIATRIC: Alert and oriented -3. Appropriate affect. Intact judgment and insight. - Labs CBC & Chem 7: 08/05/20 05:26 08/05/20 05:26 Labs: Abnormal Lab Results - Last 24 Hours (Table) 08/09/20 08/09/20 08/10/20 Range/Units 16:38 20:03 06:54 POC Glucose (mg/dL) 196 H 277 H 344 H (75-99) mg/dL 08/10/20 Range/Units 11:48 POC Glucose (mg/dL) 302 H (75-99) mg/dL Assessment and Plan Assessment: 1 Acute hypoxemic respiratory failure secondary to COVID 19 pneumonia. Currently on 6 L high flow nasal cannula 2 History of diabetes mellitus. 3 History of atrial fibrillation. 4 History of congestive heart failure. 5 History of osteoarthritis. 6 History of chronic back pain. 7 Status post lap band surgery for obesity. 8 History of deafness. Plan: The patient was seen and evaluated by Dr. Rome Titrate down the FiO2 as tolerated Discontinue IV Solu-Medrol, initiate prednisone Discontinue colchicine The plan is for discharge to [facility] on [address] We will see the patient on an as-needed basis I, the cosigning physician, performed a history & physical examination of the patient. Lungs sounds bilateral scattered rhonchi. Maintaining good O2 saturations in the 90s on 6 L high flow nasal cannula. I discussed the assessment and plan of care with my nurse practitioner, Luisa Lubin. I attest to the above note as dictated by her.
[2020-08-10 16:58] LABS: Glucose,Whole Blood 222 mg/dL (75-99)
[2020-08-10 20:06] LABS: Glucose,Whole Blood 215 mg/dL (75-99)
[2020-08-10] MEDS: LINAGLIPTIN 5 MG TABLET PO SCH (20:16)
[2020-08-10] MEDS: MELATONIN 3 MG TABLET PO SCH (20:16)
[2020-08-11 01:30] LABS: Glucose,Whole Blood 145 mg/dL (75-99)
[2020-08-11] MEDS: ACETAMINOPHEN TAB 325 MG TAB PO PRN ×3 (02:29→23:01)
[2020-08-11] MEDS: ALBUTEROL HFA INHALER INHALATION PRN ×4 (07:26→21:52)
[2020-08-11 07:30] LABS: Glucose,Whole Blood 81 mg/dL (75-99)
[2020-08-11] MEDS: INSULIN ASPART (NovoLOG) 100 UNIT/ML VIAL SQ SCH ×5 (08:31→20:31)
[2020-08-11] MEDS: CHOLECALCIFEROL 25 MCG (1000 IU) TABLET PO SCH (09:31)
[2020-08-11] MEDS: ZINC SULFATE 220 MG CAP PO SCH (09:31)
[2020-08-11] MEDS: ASCORBIC ACID 500 MG TAB PO SCH (09:31)
[2020-08-11] MEDS: FLECAINIDE 50 MG TAB PO SCH ×2 (09:31→20:31)
[2020-08-11] MEDS: METOPROLOL TARTRATE 12.5 MG TAB PO SCH (09:31)
[2020-08-11] MEDS: BENZONATATE 100 MG CAP PO SCH ×3 (09:31→20:31)
[2020-08-11] MEDS: POTASSIUM CHLORIDE ER 20 MEQ TAB.ER PO SCH (09:31)
[2020-08-11] MEDS: predniSONE 20 MG TAB PO SCH (09:31)
[2020-08-11] MEDS: ENOXAPARIN 40 MG/0.4 ML SYRINGE SQ SCH (09:31)
[2020-08-11] MEDS: PANTOPRAZOLE 40 MG TABLET PO SCH ×2 (09:31→20:31)
[2020-08-11] MEDS: metOLazone 5 MG TAB PO SCH (09:31)
[2020-08-11] MEDS: OXYMETAZOLINE 0.05% NASL SPRAY 1 SPRAY BOTTLE NASAL SCH ×2 (09:32→20:32)
[2020-08-11] MEDS: BUMETANIDE 0.25 MG/ML 4 ML VIAL IVP SCH ×2 (09:32→20:31)
[2020-08-11] MEDS: CHOLESTYRAMINE (WITH SUGAR) 4 GM PACKET PO SCH ×2 (09:32→19:27)
[2020-08-11] MEDS: MAG HYDROX/AL HYDROX/SIMETH 30 ML, LIDOCAINE VISCOUS 30 ML, NYSTATIN 100,000 UNIT/ML SU... PO SCH ×9 (09:32→20:31)
[2020-08-11] MEDS: INSULIN DETEMIR (LEVEMIR) 100 UNIT/ML SYR SQ SCH (09:33)
--- NOTE | 2020-08-11 10:55 | P.PN ---
Subjective Progress Note Date: 08/11/20 74-year-old morbidly obese female one of my office patient with past medical history of A. fib with RVR, history of acute gastrointestinal bleed with anemia, history of type 2 diabetes, history of obstructive sleep apnea, mild reactive airway/COPD and mild diastolic congestive heart failure who has been seen in the office the last week for acute Covid, patient was diagnosed on the ended up going for monoclonal anti-body infusion on the . Patient called office with worsening symptoms was seen in virtual visit and was recommended to go to the hospital to be admitted. Patient has been having worsening dyspnea and shortness of breath along with severe hypoxia worsening persistent cough prod uctive of phlegm along with mild twinges of blood. Patient was seen at the emergency department her pulse ox was in the 80 percentile with a few breathing treatment along with 3 L of O2 her pulse ox was increased to the low 90. Patient chest x-ray showed severe interstitial pneumonitis. Her d-dimer was elevated and ended up going for CTA showed extensive ground glass pulmonary interstitial edema could be related to RDS no pleural effusion found at the time. Patient was started on steroids along with updraft treatment O2 will consult pulmonary admit patient to the hospital. 2/2: The patient states that she is feeling much better today. She states that she did not sleep well last night. She is found sitting up in recliner and appears to be comfortable and in no acute distress. She has been afebrile, heart rate 72, blood pressure 160/83, pulse ox 92-98% on 5 L nasal cannula. Consult in place from pulmonary medicine. Blood sugars are running in the 200s. WBC 8, hemoglobin 10.1. Repeat lactic acid 1.7. IV fluids will be discontinued. Patient is on her home dose of Bumex. 2/3: Patient has been afebrile, heart rate 79, blood pressure 162/69, pulse ox 93% on 10 L nasal cannula. Patient complains of shortness of breath and feeling cold. She continues to cough. WBC is 18.5, hemoglobin 10.4, electrolytes normal. Creatinine 0.9. Total bilirubin 0.9, AST 88, ALT 44, alkaline phosphatase 143, LDH 943, C reactive protein 6.6. Overall, inflammatory markers are improving. Patient has been seen by pulmonary medicine and is outside of the window for Remdesivir treatment. Colchicine was added 07/19:tates that she was unable to sleep all night. She was on a nonrebreather and she felt she had a panic attack. She states that she is normally claustrophobic. She is currently seen on 15 L with pulse ox of 91%. She appears to be comfortable at rest. She is complaining of dark brown sputum production. She is also having mild nosebleed with dried blood only. Blood sugars are running between 257-300. D-dimer 8.72. LDH and CRP are pending. Patient has been afebrile, heart rate 82, blood pressure 144/51. She will probably not be ready for discharge until Thursday. 07/20: Patient has developed increasing shortness of breath overnight. She is now requiring high flow nasal cannula and nonrebreather with pulse ox of 91-95%. She has been afebrile, heart rate 77, blood pressure 178/79. Blood sugars are running between 132 and 261. Convalescent plasma has been ordered by pulmonary medicine today. Steroids have been changed to Solu-Medrol 60 mg IV every 6 melly rs. Lovenox increased to 70 mg subcu twice daily. Antibiotics in the form of Augmentin. 07/21: Patient states that she is feeling better compared to yesterday. She continues to be on 15 L high flow not nasal cannula and nonrebreather. We'll continue to attempt to wean. Receiving Bumex 2 mg IV. Continues to have lower extremity swelling bilaterally. Patient received [address] asma. She was complaining of dryness to bilateral nares. Flonase added. Patient remains afebrile, pulse rate 56, blood pressure 167/73, pulse ox 94% on nonrebreather and high flow oxygen. Discussed with patient's CODE STATUS. Patient states that she does not want to be intubated or have CPR performed. We will change her CODE STATUS to no code. 07/22: Patient is found sitting up in chair continue to utilize 15 L of high flow oxygen be significantly cannula nonrebreather pulse oxing 98%. Patient states that she is feeling better able to breathe easier. She has been having diarrhea for the past few days 3-4 episodes yesterday and only one today. Patient denies any abdominal discomfort or blood in stool. She is currently on Augmentin. We will do stool cultures including C. diff. 07/23: Patient remains on high flow nasal cannula 15 L with nonrebreather at her bedside. She is pulse oxing 91 and 94%. She's been afebrile, heart rate in the 70s, blood pressure 123/74. Blood sugars have been between 193 and 339. Anticipate need for oxygen at home. 07/24: Patient is on oxygen at 15 L high flow nasal cannula with pulse ox of 95%. She has been afebrile, heart rate 74, blood pressure 135/75. WBC 9.8, hemoglobin 10.3, platelet count 95. Sodium 136, potassium 3. former be replaced . BUN 35 and creatinine 1. Blood sugars running in the 200s. AST 37, ALT 48. Anticipate that the patient will require home oxygen at the time of discharge. 07/25: Pulse ox is 93% on 15 L high flow nasal cannula and partial rebreather. She's been afebrile, heart rate 89, blood pressure 127/74. Blood sugars running between 128 and 262. Repeat chest x-ray reveals stable findings. Correlate for pneumonia. Patient has been maintained on Augmentin, colchicine, Lovenox, IV Solu-Medrol and supplements. We'll order one additional dose of Bumex this afternoon. 07/26: Patient continues to have cough with hemoptysis, she has shortness of breath with minimal activity. Pulse ox is 91-95% on 15 L high flow nasal cannula. We will add in Tessalon pearls. She continues to have thrush for whic h she is on Diflucan. Bumex increased to 2 mg IV push twice daily. She has been afebrile, heart rate 77, blood pressure 143/68. Repeat blood work reveals WBC 9, hemoglobin 11.2, platelet count 87. Sodium 136, potassium 3.7, CO2 34, BUN 44 and creatinine 0.8. Blood sugars are running 186-237. AST at 73, ALT 73. Repeat LDH 732. C-reactive protein less than 5. Patient will continue treatment in the hospital until oxygenation is improved and she is down to 5 or 6 L nasal cannula. 07/27: Patient is pulse oxing 91-95% on 15 L high flow nasal cannula. She has been afebrile, heart rate 80, blood pressure 139/81. Blood sugars are running between 163 and 246. Patient is continued on IV Solu-Medrol, supplements, Lovenox. 07/28: Patient has been diuresing very well, she has significant weight loss, per patient she has now lost 45 pounds for the past 2 weeks, shortness breath is also much better, pulse oximetry is now are between 90-96%, 11 L nasal cannula, vital signs stable, no fever no chills, no diarrhea, decreas Bumex now to 2 mg daily, she has dyspnea on exertion, minimal conversational dyspnea however this has improved. No lightheadedness no falls 07/29 patient feels not somewhat worse, she seems to slightly be better, has lost 2 more pounds, still diuresing at nighttime, complains of being tired or sleepy during the day, not sleeping well at night. Appetite is much better, no nausea no respiratory events, still 8 L nasal cannula 91%, still has anasarca mainly in the legs, resolved edema in the upper extremities , start melatonin for sleep hygiene gnosticism, on Zaroxolyn Thursday 2.5, still on Solu-Medrol 60 mg every 6 hours, Bumex at 2 mg IV daily. Potassium at 3.4, being replaced 07/30: Blood sugars are in the low 200s, Levemir will be increased to 50 units daily which will start tomorrow. She is currently on Solu-Medrol 60 mg IV every 6 hours. Patient has been afebrile, heart rate 75, blood pressure 108/56. Pulse ox is 91-94% on 7 L high flow nasal cannula which is an improvement over the weekend. Patient does desaturate with exertion. She has been continued onIV Bumex 2 mg daily, in addition to Zaroxolyn 2.5 mg on Thursday and Thursday. She is diuresing, she is in -2.5 L fluid balance over the last 24 hours. Lower extremity edema is improved. Her stool culture was positive for Vianey albicans, and so was her sputum culture. She is on Diflucan. Her last chest x- ray was yesterday showing persistent interstitial infiltrates. Afrin spray added. 07/31 patient examined bedside. Shortness of breath is improved currently on 4- 1/2 L of oxygen saturating well at 93-95%. The patient's breathing is better. Sinus congestion is better with Afrin spray. Continue Bumex at 2 mg IV daily. Metolazone increased to 2.5 mg daily from Thursday and Thursday. Solu- Medrol switched to prednisone 30 mg by mouth daily. Blood sugar remains to be high Levemir increased to 30 twice a day 08/01: Patient continues to complain of sore mouth. She has already been treated with nystatin and now on Diflucan. We will add and cool solution 3 times daily. She is currently on 8 L high flow nasal cannula with pulse ox of 92%. Afebrile, heart rate 65, blood pressure 118/72. Repeat blood work reveals WBC 18.45. Hemoglobin 11.1, platelet count 217. Potassium is 2.8 and will be replaced with 120 mEq of potassium. Recheck potassium this afternoon. BUN 57, creatinine 1.1. Blood sugar was low this morning at 46 with repeated 63. Scheduled NovoLog discontinued, Levemir decreased from 30 units twice daily to 40 units once at bedtime C-reactive protein less than 0.4. LDH 395. Liver function tests are elevated with total bilirubin 1.3, AST 62, ALT 130, apply phosphatase 139. CTA of the chest showed no acute pulmonary embolism. Scatte red groundglass opacities and increased lung markings considered atypical pneumonia or pulmonary edema. 08/02 patient examined bedside. Shortness of breath is worsened since yesterday patient is currently on 15 L high flow oxygen. Patient switched to Solu-Medrol 60 every 6 hours. CTA ordered to rule out pulmonary embolism but was negative for PE patient continues remain on Bumex in addition to Zaroxolyn. 08/03 patient examined bedside. Appears comfortable. She is down trended on oxygen need from 15 L to 6 L nasal cannula. Blood sugar appears to be high with the increase in steroids. Continue Solu-Medrol at 60 every 6. Patient initiated on Zosyn by Dr. Ward. Continue Bumex 1 mg IV every 12 in addition to Zaroxolyn. Zaroxolyn increased to 5 mg daily Continue to monitor patient's vitals continue colchicine Protonix 40 twice a day 08/04: Patient is doing better yesterday her oxygen was down to 6 L but the blood to have low-grade temperature review of her chest CAT scan showed some consolidation area around the bronchial tube with scarring from code 19 also shows slight pericardial effusion, echocardiogram will be done today, continue diuretics and be more aggressive with furosemide on the short on the long run. Meanwhile try to decrease her O2 to be under 6 L and hopefully prepare for [facility] with higher flow to at least between 5 and 6 L for the next 2-3 weeks. 08/05: Patient remain on oxygen require around 5 L nasal cannula, decreased cough, no fever or chills. Echocardiogram result came back with very small amount of pericardial effusion no decompression. Patient is not having any fever or chills. Patient is having significant constipation and plan for discharge tomorrow patient wants to go to subacute rehab most [facility] to [facility]. 08/06: Patient is having more shortness of breath along with nausea and more GI symptoms morning not clear etiology her oxygen level dropped down she is up to 7 L today try to keep pulse ox above 92 percentile, EKGs on order CK and troponin will be done along with BNP and patient will be going for CTA to exclude any possibility of pulmonary embolism at this point. Patient is having mild anxiety as well we can use small dose of benzodiazepine. Her discharge planning will be delayed at least the next 24 hours until this is better until make sure from cardiology and pulmonary standpoint she stable. 08/07: Patient evaluated, her oxygen noted to drop to 81% on 7L, she was increased back to 10L and currently is saturating in the lower 90s. Clinically she looks good and does not appear to be in distress. Her CT was negative for PE and showed groundglass infiltrates, but improved from last exam. Discharge held due to her hypoxia this morning. Patient was also refusing her Bumex, after discussion with the patient, she is now agreeable. 08/08: Patient's oxygen saturation dropped down into the 70s when she sat at the side of the bed. She is currently seeing with nonrebreather in place. She does not appear to be in acute distress at rest. Pulse ox is 92-100% on high flow na lam cannula at 11 L. She has been afebrile, heart rate 78, blood pressure 144/79. Blood sugars are running between 159 and 202. She is continued on IV Bumex 1 mg every 12 hours, Solu-Medrol 40 mg IV every 8 hours, Zaroxolyn 5 mg daily 08/09: She was seen today resting in bed. She is currently on 8 L nasal cannula and pulse ox is 98%. We will decrease to 6 L and her nurse will recheck pulse ox. Goal will be to wean down to 5 L with possible discharge tomorrow. Discharge plan is for [facility]. Patient has been afebrile, heart rate 80, blood pressure 115/75. Blood sugars are running between 96 and 189. She is currently on Solu-Medrol 40 mg IV every 8 hours. 08/10: Pulse ox is 91-95% on 6 L nasal cannula. The patient continues to desaturate with minimal movement. She has been afebrile, heart rate 74, blood pressure 97/64. Blood sugars overnight were elevated at 196-344 this morning. No medication changes have been made. Plan is to continue current therapy, over the weekend and plan for discharge to [facility] on Thursday. 08/11: She states that she was able to sit up in a chair for 4 hours yesterday and did well with this. Her oxygenation was maintained. She is currently on 6 L nasal cannula with a pulse ox of 96%. She has been afebrile, heart rate 69, blood pressure 105/64. Solu-Medrol has been transitioned to prednisone by pulmonary medicine. Blood sugars are decreasing and we will make adjustments to her insulin. REVIEW OF SYSTEMS CONSTITUTIONAL: Well-developed with no respiratory distress at rest. Denies fevers. Denies chills. EYES: No icterus sclerae, no conjunctivitis. EARS, NOSE, MOUTH, THROAT, and FACE: Reports nasal congestion. No sore throat, lymphadenopathy, carotid bruits or deformity. RESPIRATORY: Reports dyspnea and shortness of breath and cough, slowly improving. Dyspnea with minimal exertion. CARDIOVASCULAR: Positive PND orthopnea . Denies palpitation with no angina. GASTROINTESTINAL: No Abd pain, Nausea or vomiting, no Diarrhea or constipation, No GI Bleed, no distention or masses. GENITOURINARY: Negative for Hematuria or UTI, no kidney stones. INTEGUMENT/BREAST: Negative for any muscular injury with mild osteoarthritis. Chronic edema. HEMATOLOGIC/LYMPHATIC: Negative for bleed or purpura. MUSCULOSKELTAL: Negative for Myalgia or arthralgia. Significant arthralgia and myalgia. NEURLOGICAL: No LOC, Sz or syncope, blurred vision dizziness or abnormality.. BEHAVIORAL/PSYCH: Negative. ENDOCRINE: Elevated blood sugars PHYSICAL EXAMINATION General Appearance: Alert, cooperative, morbidly obese in no respiratory distress. Patient is resting comfortably in bed. Patient is on nasal cannula. Neck HEENT: Supple, no lymphadenopathy, no thyroid enlargement, no carotid bruits. Lungs: Bilateral scattered rhonchi. No accessory muscle usage while at rest. Chest Wall: Decrease expansion with deep inspiration no tenderness and no deformity was found on exam, no costochondral pain or discomfort. Heart: Regular rate and rhythm, S1, S2 positive systolic murmur with S3. Back: Symmetric, no curvature, ROM normal, no CVA tenderness. Abdomen: Soft, non-tender, bowel sounds active all four quadrants, no masses, no organomegaly. Extremities: no edema and decreased pulses bilaterally. Pulses: 1+ and symmetric. Skin: Skin color, texture, tugor normal, no rashes or lesions. Neurologic: Alert oriented x3 cranial nerves II through XII intact, no motor deficit, no abnormal balance or gait. ASSESSMENT AND PLAN 1 acute hypoxic respiratory failure secondary to acute Covid pneumonitis with worsening symptoms. Consult with pulmonary medicine shaded. Continue Solu- Medrol 40 mg IV every 8 hours, Bumex 1 mg IV push every 12 hours, Ventolin inhaler every 6 hours as needed, Zaroxolyn 5 mg daily, Tessalon Perles 100 mg 3 times daily, colchicine 0.6 mg daily, vitamin C, vitamin D, zinc, Afrin nasal spray, Lovenox 40 mg subcu daily. Continue current regime and monitor. 2 acute Covid pneumonitis with worsening symptoms. Continue as in #1. 3 COPD continue albuterol inhaler. 4. Paroxysmal atrial fibrillation, unable to tolerate anticoagulation secondary to acute GI bleed, continue metoprolol 12.5 mg twice daily and flecainide 50 mg twice a day. 5 type 2 diabetes, uncontrolled with hyperglycemia secondary to steroids and episodes of hypoglycemia. Continue Accu-Chek with sliding scales coverage continue Lantus changed back to her home dose of 45 units daily to start tomorrow, discontinue scheduled NovoLog with meals. 6 chronic diastolic heart failure. Continue Bumex IV every 12 hours, Lopressor. 7 peptic ulcer disease and GI prophylaxis: Continue patient on pantoprazole 40 mg daily. 8 chronic anemia: Remain on iron supplement and multivitamins no need for transfusion. 9 mild hyponatremia: Most likely SIADH from pneumonia will continue mild gentle hydration repeat chemistry in the next 24 hours. 10 DVT prophylaxis: Patient will be on Lovenox subcutaneous daily. 11 GI prophylaxis: Will be on pantoprazole. 12. Diarrhea. Stool cultures. C. diff negative. Diarrhea most likely secondary to Augmentin. 13. Thrush. Patient has been treated with nystatin, Diflucan and cool solution. 14. Bilateral buttocks ulcer stage II, shearing-type injury. Continue local wound care. CODE STATUS: No Code DISCHARGE PLAN on Thursday. Impression and plan of care have been directed as dictated by the signing physician. Leeann Rose nurse practitioner acting as scribe for signing physician. Objective - Vital Signs Vital signs: Vital Signs Temp 97.4 F L 08/11/20 08:08 Pulse 69 08/11/20 08:08 Resp 20 08/11/20 08:08 BP 105/64 08/11/20 08:08 Pulse Ox 96 08/11/20 08:08 Intake & Output 08/10/20 08/11/20 08/11/20 18:59 06:59 18:59 Output Total 800 Balance -800 Weight 125 kg Output: Urine 800 Other: Voiding Method Bedpan External Catheter - Labs CBC & Chem 7: 08/05/20 05:26 08/05/20 05:26 Labs: Abnormal Lab Results - Last 24 Hours (Table) 08/10/20 08/10/20 08/10/20 Range/Units 11:48 16:57 20:05 POC Glucose (mg/dL) 302 H 222 H 215 H (75-99) mg/dL 08/11/20 Range/Units 01:26 POC Glucose (mg/dL) 145 H (75-99) mg/dL
[2020-08-11 11:56] LABS: Glucose,Whole Blood 150 mg/dL (75-99)
[2020-08-11 16:50] LABS: Glucose,Whole Blood 235 mg/dL (75-99)
[2020-08-11 20:23] LABS: Glucose,Whole Blood 271 mg/dL (75-99)
[2020-08-11] MEDS: MELATONIN 3 MG TABLET PO SCH (20:31)
[2020-08-11] MEDS: LINAGLIPTIN 5 MG TABLET PO SCH (20:31)
[2020-08-12 07:32] LABS: Glucose,Whole Blood 108 mg/dL (75-99)
[2020-08-12] MEDS: BENZONATATE 100 MG CAP PO SCH ×3 (07:33→20:43)
[2020-08-12] MEDS: ASCORBIC ACID 500 MG TAB PO SCH (07:33)
[2020-08-12] MEDS: ENOXAPARIN 40 MG/0.4 ML SYRINGE SQ SCH (07:33)
[2020-08-12] MEDS: CHOLECALCIFEROL 25 MCG (1000 IU) TABLET PO SCH (07:33)
[2020-08-12] MEDS: INSULIN ASPART (NovoLOG) 100 UNIT/ML VIAL SQ SCH ×4 (07:33→20:44)
[2020-08-12] MEDS: PANTOPRAZOLE 40 MG TABLET PO SCH ×2 (07:34→20:43)
[2020-08-12] MEDS: ZINC SULFATE 220 MG CAP PO SCH (07:34)
[2020-08-12] MEDS: POTASSIUM CHLORIDE ER 20 MEQ TAB.ER PO SCH (07:34)
[2020-08-12] MEDS: predniSONE 20 MG TAB PO SCH (07:34)
[2020-08-12] MEDS: INSULIN DETEMIR (LEVEMIR) 100 UNIT/ML SYR SQ SCH (07:34)
[2020-08-12] MEDS: METOPROLOL TARTRATE 12.5 MG TAB PO SCH (07:34)
[2020-08-12] MEDS: BUMETANIDE 0.25 MG/ML 4 ML VIAL IVP SCH ×2 (07:35→20:44)
[2020-08-12] MEDS: metOLazone 5 MG TAB PO SCH (07:36)
[2020-08-12] MEDS: FLECAINIDE 50 MG TAB PO SCH ×2 (07:36→20:43)
[2020-08-12] MEDS: CHOLESTYRAMINE (WITH SUGAR) 4 GM PACKET PO SCH ×2 (07:36→17:29)
[2020-08-12] MEDS: OXYMETAZOLINE 0.05% NASL SPRAY 1 SPRAY BOTTLE NASAL SCH ×2 (07:36→20:45)
[2020-08-12] MEDS: MAG HYDROX/AL HYDROX/SIMETH 30 ML, LIDOCAINE VISCOUS 30 ML, NYSTATIN 100,000 UNIT/ML SU... PO SCH ×9 (07:36→20:43)
[2020-08-12] MEDS: ALBUTEROL HFA INHALER INHALATION PRN ×4 (07:40→20:41)
[2020-08-12 09:54] LABS: African American GFR (CKD) 43.1 (60.0-200.0); Anion Gap 11.3 mmol/L (4.00-12.00); BUN/Creat Ratio 64.29 Ratio (12.00-20.00); Calcium 8.6 mg/dL (8.7-10.3); Carbon Dioxide 32.7 mmol/L (21.6-31.8); Non-African American GFR(CKD) 37.2 (60.0-200.0); Potassium 3.7 mmol/L (3.5-5.5)
--- NOTE | 2020-08-12 10:18 | P.PN ---
Subjective Progress Note Date: 08/12/20 74-year-old morbidly obese female one of my office patient with past medical history of A. fib with RVR, history of acute gastrointestinal bleed with anemia, history of type 2 diabetes, history of obstructive sleep apnea, mild reactive airway/COPD and mild diastolic congestive heart failure who has been seen in the office the last week for acute Covid, patient was diagnosed on the ended up going for monoclonal anti-body infusion on the . Patient called office with worsening symptoms was seen in virtual visit and was recommended to go to the hospital to be admitted. Patient has been having worsening dyspnea and shortness of breath along with severe hypoxia worsening persistent cough prod uctive of phlegm along with mild twinges of blood. Patient was seen at the emergency department her pulse ox was in the 80 percentile with a few breathing treatment along with 3 L of O2 her pulse ox was increased to the low 90. Patient chest x-ray showed severe interstitial pneumonitis. Her d-dimer was elevated and ended up going for CTA showed extensive ground glass pulmonary interstitial edema could be related to RDS no pleural effusion found at the time. Patient was started on steroids along with updraft treatment O2 will consult pulmonary admit patient to the hospital. 2/2: The patient states that she is feeling much better today. She states that she did not sleep well last night. She is found sitting up in recliner and appears to be comfortable and in no acute distress. She has been afebrile, heart rate 72, blood pressure 160/83, pulse ox 92-98% on 5 L nasal cannula. Consult in place from pulmonary medicine. Blood sugars are running in the 200s. WBC 8, hemoglobin 10.1. Repeat lactic acid 1.7. IV fluids will be discontinued. Patient is on her home dose of Bumex. 2/3: Patient has been afebrile, heart rate 79, blood pressure 162/69, pulse ox 93% on 10 L nasal cannula. Patient complains of shortness of breath and feeling cold. She continues to cough. WBC is 18.5, hemoglobin 10.4, electrolytes normal. Creatinine 0.9. Total bilirubin 0.9, AST 88, ALT 44, alkaline phosphatase 143, LDH 943, C reactive protein 6.6. Overall, inflammatory markers are improving. Patient has been seen by pulmonary medicine and is outside of the window for Remdesivir treatment. Colchicine was added 07/19:tates that she was unable to sleep all night. She was on a nonrebreather and she felt she had a panic attack. She states that she is normally claustrophobic. She is currently seen on 15 L with pulse ox of 91%. She appears to be comfortable at rest. She is complaining of dark brown sputum production. She is also having mild nosebleed with dried blood only. Blood sugars are running between 257-300. D-dimer 8.72. LDH and CRP are pending. Patient has been afebrile, heart rate 82, blood pressure 144/51. She will probably not be ready for discharge until Thursday. 07/20: Patient has developed increasing shortness of breath overnight. She is now requiring high flow nasal cannula and nonrebreather with pulse ox of 91-95%. She has been afebrile, heart rate 77, blood pressure 178/79. Blood sugars are running between 132 and 261. Convalescent plasma has been ordered by pulmonary medicine today. Steroids have been changed to Solu-Medrol 60 mg IV every 6 melly rs. Lovenox increased to 70 mg subcu twice daily. Antibiotics in the form of Augmentin. 07/21: Patient states that she is feeling better compared to yesterday. She continues to be on 15 L high flow not nasal cannula and nonrebreather. We'll continue to attempt to wean. Receiving Bumex 2 mg IV. Continues to have lower extremity swelling bilaterally. Patient received [address] asma. She was complaining of dryness to bilateral nares. Flonase added. Patient remains afebrile, pulse rate 56, blood pressure 167/73, pulse ox 94% on nonrebreather and high flow oxygen. Discussed with patient's CODE STATUS. Patient states that she does not want to be intubated or have CPR performed. We will change her CODE STATUS to no code. 07/22: Patient is found sitting up in chair continue to utilize 15 L of high flow oxygen be significantly cannula nonrebreather pulse oxing 98%. Patient states that she is feeling better able to breathe easier. She has been having diarrhea for the past few days 3-4 episodes yesterday and only one today. Patient denies any abdominal discomfort or blood in stool. She is currently on Augmentin. We will do stool cultures including C. diff. 07/23: Patient remains on high flow nasal cannula 15 L with nonrebreather at her bedside. She is pulse oxing 91 and 94%. She's been afebrile, heart rate in the 70s, blood pressure 123/74. Blood sugars have been between 193 and 339. Anticipate need for oxygen at home. 07/24: Patient is on oxygen at 15 L high flow nasal cannula with pulse ox of 95%. She has been afebrile, heart rate 74, blood pressure 135/75. WBC 9.8, hemoglobin 10.3, platelet count 95. Sodium 136, potassium 3. former be replaced . BUN 35 and creatinine 1. Blood sugars running in the 200s. AST 37, ALT 48. Anticipate that the patient will require home oxygen at the time of discharge. 07/25: Pulse ox is 93% on 15 L high flow nasal cannula and partial rebreather. She's been afebrile, heart rate 89, blood pressure 127/74. Blood sugars running between 128 and 262. Repeat chest x-ray reveals stable findings. Correlate for pneumonia. Patient has been maintained on Augmentin, colchicine, Lovenox, IV Solu-Medrol and supplements. We'll order one additional dose of Bumex this afternoon. 07/26: Patient continues to have cough with hemoptysis, she has shortness of breath with minimal activity. Pulse ox is 91-95% on 15 L high flow nasal cannula. We will add in Tessalon pearls. She continues to have thrush for whic h she is on Diflucan. Bumex increased to 2 mg IV push twice daily. She has been afebrile, heart rate 77, blood pressure 143/68. Repeat blood work reveals WBC 9, hemoglobin 11.2, platelet count 87. Sodium 136, potassium 3.7, CO2 34, BUN 44 and creatinine 0.8. Blood sugars are running 186-237. AST at 73, ALT 73. Repeat LDH 732. C-reactive protein less than 5. Patient will continue treatment in the hospital until oxygenation is improved and she is down to 5 or 6 L nasal cannula. 07/27: Patient is pulse oxing 91-95% on 15 L high flow nasal cannula. She has been afebrile, heart rate 80, blood pressure 139/81. Blood sugars are running between 163 and 246. Patient is continued on IV Solu-Medrol, supplements, Lovenox. 07/28: Patient has been diuresing very well, she has significant weight loss, per patient she has now lost 45 pounds for the past 2 weeks, shortness breath is also much better, pulse oximetry is now are between 90-96%, 11 L nasal cannula, vital signs stable, no fever no chills, no diarrhea, decreas Bumex now to 2 mg daily, she has dyspnea on exertion, minimal conversational dyspnea however this has improved. No lightheadedness no falls 07/29 patient feels not somewhat worse, she seems to slightly be better, has lost 2 more pounds, still diuresing at nighttime, complains of being tired or sleepy during the day, not sleeping well at night. Appetite is much better, no nausea no respiratory events, still 8 L nasal cannula 91%, still has anasarca mainly in the legs, resolved edema in the upper extremities , start melatonin for sleep hygiene episcopalian, on Zaroxolyn Thursday 2.5, still on Solu-Medrol 60 mg every 6 hours, Bumex at 2 mg IV daily. Potassium at 3.4, being replaced 07/30: Blood sugars are in the low 200s, Levemir will be increased to 50 units daily which will start tomorrow. She is currently on Solu-Medrol 60 mg IV every 6 hours. Patient has been afebrile, heart rate 75, blood pressure 108/56. Pulse ox is 91-94% on 7 L high flow nasal cannula which is an improvement over the weekend. Patient does desaturate with exertion. She has been continued onIV Bumex 2 mg daily, in addition to Zaroxolyn 2.5 mg on Thursday and Thursday. She is diuresing, she is in -2.5 L fluid balance over the last 24 hours. Lower extremity edema is improved. Her stool culture was positive for Vianey albicans, and so was her sputum culture. She is on Diflucan. Her last chest x- ray was yesterday showing persistent interstitial infiltrates. Afrin spray added. 07/31 patient examined bedside. Shortness of breath is improved currently on 4- 1/2 L of oxygen saturating well at 93-95%. The patient's breathing is better. Sinus congestion is better with Afrin spray. Continue Bumex at 2 mg IV daily. Metolazone increased to 2.5 mg daily from Thursday and Thursday. Solu- Medrol switched to prednisone 30 mg by mouth daily. Blood sugar remains to be high Levemir increased to 30 twice a day 08/01: Patient continues to complain of sore mouth. She has already been treated with nystatin and now on Diflucan. We will add and cool solution 3 times daily. She is currently on 8 L high flow nasal cannula with pulse ox of 92%. Afebrile, heart rate 65, blood pressure 118/72. Repeat blood work reveals WBC 18.45. Hemoglobin 11.1, platelet count 217. Potassium is 2.8 and will be replaced with 120 mEq of potassium. Recheck potassium this afternoon. BUN 57, creatinine 1.1. Blood sugar was low this morning at 46 with repeated 63. Scheduled NovoLog discontinued, Levemir decreased from 30 units twice daily to 40 units once at bedtime C-reactive protein less than 0.4. LDH 395. Liver function tests are elevated with total bilirubin 1.3, AST 62, ALT 130, apply phosphatase 139. CTA of the chest showed no acute pulmonary embolism. Scatte red groundglass opacities and increased lung markings considered atypical pneumonia or pulmonary edema. 08/02 patient examined bedside. Shortness of breath is worsened since yesterday patient is currently on 15 L high flow oxygen. Patient switched to Solu-Medrol 60 every 6 hours. CTA ordered to rule out pulmonary embolism but was negative for PE patient continues remain on Bumex in addition to Zaroxolyn. 08/03 patient examined bedside. Appears comfortable. She is down trended on oxygen need from 15 L to 6 L nasal cannula. Blood sugar appears to be high with the increase in steroids. Continue Solu-Medrol at 60 every 6. Patient initiated on Zosyn by Dr. Ward. Continue Bumex 1 mg IV every 12 in addition to Zaroxolyn. Zaroxolyn increased to 5 mg daily Continue to monitor patient's vitals continue colchicine Protonix 40 twice a day 08/04: Patient is doing better yesterday her oxygen was down to 6 L but the blood to have low-grade temperature review of her chest CAT scan showed some consolidation area around the bronchial tube with scarring from code 19 also shows slight pericardial effusion, echocardiogram will be done today, continue diuretics and be more aggressive with furosemide on the short on the long run. Meanwhile try to decrease her O2 to be under 6 L and hopefully prepare for discharge this week one of the retirement with higher flow to at least between 5 and 6 L for the next 2-3 weeks. 08/05: Patient remain on oxygen require around 5 L nasal cannula, decreased cough, no fever or chills. Echocardiogram result came back with very small amount of pericardial effusion no decompression. Patient is not having any fever or chills. Patient is having significant constipation and plan for discharge tomorrow patient wants to go to subacute rehab most likely to [facility]. 08/06: Patient is having more shortness of breath along with nausea and more GI symptoms morning not clear etiology her oxygen level dropped down she is up to 7 L today try to keep pulse ox above 92 percentile, EKGs on order CK and troponin will be done along with BNP and patient will be going for CTA to exclude any possibility of pulmonary embolism at this point. Patient is having mild anxiety as well we can use small dose of benzodiazepine. Her discharge planning will be delayed at least the next 24 hours until this is better until make sure from cardiology and pulmonary standpoint she stable. 08/07: Patient evaluated, her oxygen noted to drop to 81% on 7L, she was increased back to 10L and currently is saturating in the lower 90s. Clinically she looks good and does not appear to be in distress. Her CT was negative for PE and showed groundglass infiltrates, but improved from last exam. Discharge held due to her hypoxia this morning. Patient was also refusing her Bumex, after discussion with the patient, she is now agreeable. 08/08: Patient's oxygen saturation dropped down into the 70s when she sat at the side of the bed. She is currently seeing with nonrebreather in place. She does not appear to be in acute distress at rest. Pulse ox is 92-100% on high flow na lam cannula at 11 L. She has been afebrile, heart rate 78, blood pressure 144/79. Blood sugars are running between 159 and 202. She is continued on IV Bumex 1 mg every 12 hours, Solu-Medrol 40 mg IV every 8 hours, Zaroxolyn 5 mg daily 08/09: She was seen today resting in bed. She is currently on 8 L nasal cannula and pulse ox is 98%. We will decrease to 6 L and her nurse will recheck pulse ox. Goal will be to wean down to 5 L with possible discharge tomorrow. Discharge plan is for [facility]. Patient has been afebrile, heart rate 80, blood pressure 115/75. Blood sugars are running between 96 and 189. She is currently on Solu-Medrol 40 mg IV every 8 hours. 08/10: Pulse ox is 91-95% on 6 L nasal cannula. The patient continues to desaturate with minimal movement. She has been afebrile, heart rate 74, blood pressure 97/64. Blood sugars overnight were elevated at 196-344 this morning. No medication changes have been made. Plan is to continue current therapy, over the weekend and plan for discharge to [facility] on Thursday. 08/11: She states that she was able to sit up in a chair for 4 hours yesterday and did well with this. Her oxygenation was maintained. She is currently on 6 L nasal cannula with a pulse ox of 96%. She has been afebrile, heart rate 69, blood pressure 105/64. Solu-Medrol has been transitioned to prednisone by pulmonary medicine. Blood sugars are decreasing and we will make adjustments to her insulin. 08/12: Patient is sleeping in bed and appears to be comfortable. She awakens easily to verbal stimuli. At rest or pulse ox is 97% on 4 L nasal cannula. Heart rate 60, blood pressure 91/51, afebrile. Repeat blood work reveals sodium 139, potassium 3.7, chloride 95, CO2 32, BUN 90 and creatinine 1.4. Blood sugars are running between 107 and 271. Blood sugars are high in the afternoon and evening. REVIEW OF SYSTEMS CONSTITUTIONAL: Well-developed with no respiratory distress at rest. Denies fe vers. Denies chills. EYES: No icterus sclerae, no conjunctivitis. EARS, NOSE, MOUTH, THROAT, and FACE: Reports nasal congestion. No sore throat, lymphadenopathy, carotid bruits or deformity. RESPIRATORY: Reports dyspnea and shortness of breath and cough, slowly improving. Dyspnea with minimal exertion. CARDIOVASCULAR: Positive PND orthopnea . Denies palpitation with no angina. GASTROINTESTINAL: No Abd pain, Nausea or vomiting, no Diarrhea or constipation, No GI Bleed, no distention or masses. GENITOURINARY: Negative for Hematuria or UTI, no kidney stones. INTEGUMENT/BREAST: Negative for any muscular injury with mild osteoarthritis. Chronic edema. HEMATOLOGIC/LYMPHATIC: Negative for bleed or purpura. MUSCULOSKELTAL: Negative for Myalgia or arthralgia. Significant arthralgia and myalgia. NEURLOGICAL: No LOC, Sz or syncope, blurred vision dizziness or abnormality.. BEHAVIORAL/PSYCH: Negative. ENDOCRINE: Labile blood sugars PHYSICAL EXAMINATION General Appearance: Alert, cooperative, morbidly obese in no respiratory distress. Patient is resting comfortably in bed. Patient is on nasal cannula. Neck HEENT: Supple, no lymphadenopathy, no thyroid enlargement, no carotid bruits. Lungs: Bilateral scattered rhonchi. No accessory muscle usage while at rest. Chest Wall: Decrease expansion with deep inspiration no tenderness and no deformity was found on exam, no costochondral pain or discomfort. Heart: Regular rate and rhythm, S1, S2 positive systolic murmur with S3. Back: Symmetric, no curvature, ROM normal, no CVA tenderness. Abdomen: Soft, non-tender, bowel sounds active all four quadrants, no masses, no organomegaly. Extremities: no edema and decreased pulses bilaterally. Pulses: 1+ and symmetric. Skin: Skin color, texture, tugor normal, no rashes or lesions. Neurologic: Alert oriented x3 cranial nerves II through XII intact, no motor deficit, no abnormal balance or gait. ASSESSMENT AND PLAN 1 acute hypoxic respiratory failure secondary to acute Covid pneumonitis with worsening symptoms. Consult with pulmonary medicine shaded. Continue Solu- Medrol 40 mg IV every 8 hours, Bumex 1 mg IV push every 12 hours, Ventolin inhaler every 6 hours as needed, Zaroxolyn 5 mg daily, Tessalon Perles 100 mg 3 times daily, colchicine 0.6 mg daily, vitamin C, vitamin D, zinc, Afrin nasal spray, Lovenox 40 mg subcu daily. Continue current regime and monitor. 2 acute Covid pneumonitis with worsening symptoms. Continue as in #1. 3 COPD, stable continue albuterol inhaler. 4. Paroxysmal atrial fibrillation, unable to tolerate anticoagulation secondary to acute GI bleed, continue metoprolol 12.5 mg twice daily and flecainide 50 mg twice a day. 5 type 2 diabetes, uncontrolled with hyperglycemia secondary to steroids and episodes of hypoglycemia. Continue Accu-Chek with sliding scales coverage continue Lantus changed back to her home dose of 45 units daily to start tomorrow, discontinue scheduled NovoLog with meals. 6 chronic diastolic heart failure. Continue Bumex IV every 12 hours, Lopressor. 7 peptic ulcer disease and GI prophylaxis: Continue patient on pantoprazole 40 mg daily. 8 chronic anemia: Remain on iron supplement and multivitamins no need for transfusion. 9 mild hyponatremia: Most likely SIADH from pneumonia will continue mild gentle hydration repeat chemistry in the next 24 hours. 10 DVT prophylaxis: Patient will be on Lovenox subcutaneous daily. 11 GI prophylaxis: Will be on pantoprazole. 12. Diarrhea. Stool cultures. C. diff negative. Diarrhea most likely seco ndary to Augmentin. 13. Thrush. Patient has been treated with nystatin, Diflucan and cool solutio n. 14. Bilateral buttocks ulcer stage II, shearing-type injury. Continue local wound care. CODE STATUS: No Code DISCHARGE PLAN on Thursday. Impression and plan of care have been directed as dictated by the signing physician. Leeann Rose nurse practitioner acting as scribe for signing physician. Objective - Vital Signs Vital signs: Vital Signs Temp 96.8 F L 08/12/20 07:31 Pulse 71 08/12/20 07:31 Resp 20 08/12/20 07:31 BP 91/58 08/12/20 07:31 Pulse Ox 93 L 08/12/20 07:31 Intake & Output 08/11/20 08/12/20 08/12/20 18:59 06:59 18:59 Output Total 1200 Balance -1200 Weight 123.5 kg Output: Urine 1200 Other: Voiding Method Bedpan External Catheter - Labs CBC & Chem 7: 08/05/20 05:26 08/12/20 05:37 Labs: Abnormal Lab Results - Last 24 Hours (Table) 08/11/20 08/11/20 08/11/20 Range/Units 11:44 16:38 20:20 POC Glucose (mg/dL) 150 H 235 H 271 H (75-99) mg/dL 08/12/20 Range/Units 07:31 POC Glucose (mg/dL) 108 H (75-99) mg/dL
[2020-08-12 11:35] LABS: Glucose,Whole Blood 276 mg/dL (75-99)
[2020-08-12 14:30] VITALS: RESP 18
[2020-08-12 16:36] LABS: Glucose,Whole Blood 377 mg/dL (75-99)
[2020-08-12] MEDS ORDERED: INSULIN ASPART (NovoLOG) 100 UNIT/ML VIAL SQ SCH (17:30)
[2020-08-12 20:29] LABS: Glucose,Whole Blood 251 mg/dL (75-99)
[2020-08-12] MEDS: MELATONIN 3 MG TABLET PO SCH (20:43)
[2020-08-12] MEDS: LINAGLIPTIN 5 MG TABLET PO SCH (20:44)
[2020-08-12] MEDS: ACETAMINOPHEN TAB 325 MG TAB PO PRN (22:38)
[2020-08-13] MEDS: ACETAMINOPHEN TAB 325 MG TAB PO PRN (05:08)
[2020-08-13 07:31] LABS: Glucose,Whole Blood 70 mg/dL (75-99)
[2020-08-13] MEDS: ALBUTEROL HFA INHALER INHALATION PRN (07:38)
[2020-08-13] MEDS: INSULIN ASPART (NovoLOG) 100 UNIT/ML VIAL SQ SCH ×2 (07:56→12:09)
[2020-08-13] MEDS: BENZONATATE 100 MG CAP PO SCH (08:35)
[2020-08-13] MEDS: ZINC SULFATE 220 MG CAP PO SCH (08:35)
[2020-08-13] MEDS: ASCORBIC ACID 500 MG TAB PO SCH (08:35)
[2020-08-13] MEDS: PANTOPRAZOLE 40 MG TABLET PO SCH (08:35)
[2020-08-13] MEDS: INSULIN DETEMIR (LEVEMIR) 100 UNIT/ML SYR SQ SCH (08:35)
[2020-08-13] MEDS: METOPROLOL TARTRATE 12.5 MG TAB PO SCH (08:35)
[2020-08-13] MEDS: predniSONE 20 MG TAB PO SCH (08:35)
[2020-08-13] MEDS: FLECAINIDE 50 MG TAB PO SCH (08:36)
[2020-08-13] MEDS: POTASSIUM CHLORIDE ER 20 MEQ TAB.ER PO SCH (08:36)
[2020-08-13] MEDS: CHOLECALCIFEROL 25 MCG (1000 IU) TABLET PO SCH (08:36)
[2020-08-13] MEDS: metOLazone 5 MG TAB PO SCH (08:36)
[2020-08-13] MEDS: BUMETANIDE 0.25 MG/ML 4 ML VIAL IVP SCH (08:36)
[2020-08-13] MEDS: OXYMETAZOLINE 0.05% NASL SPRAY 1 SPRAY BOTTLE NASAL SCH (08:37)
[2020-08-13] MEDS: MAG HYDROX/AL HYDROX/SIMETH 30 ML, LIDOCAINE VISCOUS 30 ML, NYSTATIN 100,000 UNIT/ML SU... PO SCH ×3 (08:37)
[2020-08-13] MEDS: ENOXAPARIN 40 MG/0.4 ML SYRINGE SQ SCH (08:37)
--- NOTE | 2020-08-13 09:32 | P.DS ---
Providers Date of admission: 07/16/20 17:32 Expected date of discharge: 08/13/20 Attending physician: Ld Betancur Consults: 07/16/20 17:53 Consult Physician Urgent Consulting Provider: Kee Rome Reason/Comments: acute hypoxic resp failure, acute covid pna Do you want consulting provider notified?: Yes Primary care physician: [facility] Course: 74-year-old morbidly obese female one of my office patient with past medical history of A. fib with RVR, history of acute gastrointestinal bleed with anemia, history of type 2 diabetes, history of obstructive sleep apnea, mild reactive airway/COPD and mild diastolic congestive heart failure who has been seen in the office the last week for acute Covid, patient was diagnosed on the ended up going for monoclonal anti-body infusion on the . Patient called office with worsening symptoms was seen in virtual visit and was recommended to go to the hospital to be admitted. Patient has been having worsening dyspnea and shortness of breath along with severe hypoxia worsening persistent cough productive of phlegm along with mild twinges of blood. Patient was seen at the emergency department her pulse ox was in the 80 percentile with a few breathing treatment along with 3 L of O2 her pulse ox was increased to the low 90. Patient chest x-ray showed severe interstitial pneumonitis. Her d-dimer was elevated and ended up going for CTA showed extensive ground glass pulmonary interstitial edema could be related to RDS no pleural effusion found at the time. Patient was started on steroids along with updraft treatment O2 will consult pulmonary admit patient to the hospital. 2/2: The patient states that she is feeling much better today. She states that she did not sleep well last night. She is found sitting up in recliner and appears to be comfortable and in no acute distress. She has been afebrile, heart rate 72, blood pressure 160/83, pulse ox 92-98% on 5 L nasal cannula. Consult in place from pulmonary medicine. Blood sugars are running in the 200s. WBC 8, hemoglobin 10.1. Repeat lactic acid 1.7. IV fluids will be discontinued. Patient is on her home dose of Bumex. 2/3: Patient has been afebrile, heart rate 79, blood pressure 162/69, pulse ox 93% on 10 L nasal cannula. Patient complains of shortness of breath and feeling cold. She continues to cough. WBC is 18.5, hemoglobin 10.4, electrolytes normal. Creatinine 0.9. Total bilirubin 0.9, AST 88, ALT 44, alkaline phosphatase 143, LDH 943, C reactive protein 6.6. Overall, inflammatory markers are improving. Patient has been seen by pulmonary medicine and is outside of the window for Remdesivir treatment. Colchicine was added 07/19:tates that she was unable to sleep all night. She was on a nonrebreather and she felt she had a panic attack. She states that she is normally claustrophobic. She is currently seen on 15 L with pulse ox of 91%. She appears to be comfortable at rest. She is complaining of dark brown sputum production. She is also having mild nosebleed with dried blood only. Blood sugars are running between 257-300. D-dimer 8.72. LDH and CRP are pending. Patient has been afebrile, heart rate 82, blood pressure 144/51. She will probably not be ready for discharge until Thursday. 07/20: Patient has developed increasing shortness of breath overnight. She is now requiring high flow nasal cannula and nonrebreather with pulse ox of 91-95%. She has been afebrile, heart rate 77, blood pressure 178/79. Blood sugars are running between 132 and 261. Convalescent plasma has been ordered by pulmonary medicine today. Steroids have been changed to Solu-Medrol 60 mg IV every 6 hours. Lovenox increased to 70 mg subcu twice daily. Antibiotics in the form of Augmentin. 07/21: Patient states that she is feeling better compared to yesterday. She continues to be on 15 L high flow not nasal cannula and nonrebreather. We'll continue to attempt to wean. Receiving Bumex 2 mg IV. Continues to have lower extremity swelling bilaterally. Patient received 2 units of convalescent plasma. She was complaining of dryness to bilateral nares. Flonase added. Patient remains afebrile, pulse rate 56, blood pressure 167/73, pulse ox 94% on nonrebreather and high flow oxygen. Discussed with patient's CODE STATUS. Patient states that she does not want to be intubated or have CPR performed. We will change her CODE STATUS to no code. 07/22: Patient is found sitting up in chair continue to utilize 15 L of high flow oxygen be significantly cannula nonrebreather pulse oxing 98%. Patient states that she is feeling better able to breathe easier. She has been having diarrhea for the past few days 3-4 episodes yesterday and only one today. Patient denies any abdominal discomfort or blood in stool. She is currently on Augmentin. We will do stool cultures including C. diff. 07/23: Patient remains on high flow nasal cannula 15 L with nonrebreather at her bedside. She is pulse oxing 91 and 94%. She's been afebrile, heart rate in the 70s, blood pressure 123/74. Blood sugars have been between 193 and 339. Anticipate need for oxygen at home. 07/24: Patient is on oxygen at 15 L high flow nasal cannula with pulse ox of 95%. She has been afebrile, heart rate 74, blood pressure 135/75. WBC 9.8, hemoglobin 10.3, platelet count 95. Sodium 136, potassium 3. former be replaced. BUN 35 and creatinine 1. Blood sugars running in the 200s. AST 37, ALT 48. Anticipate that the patient will require home oxygen at the time of discharge. 07/25: Pulse ox is 93% on 15 L high flow nasal cannula and partial rebreather. She's been afebrile, heart rate 89, blood pressure 127/74. Blood sugars running between 128 and 262. Repeat chest x-ray reveals stable findings. Correlate for pneumonia. Patient has been maintained on Augmentin, colchicine, Lovenox, IV Solu-Medrol and supplements. We'll order one additional dose of Bumex this afternoon. 07/26: Patient continues to have cough with hemoptysis, she has shortness of breath with minimal activity. Pulse ox is 91-95% on 15 L high flow nasal cannula. We will add in Tessalon pearls. She continues to have thrush for which she is on Diflucan. Bumex increased to 2 mg IV push twice daily. She has been afebrile, heart rate 77, blood pressure 143/68. Repeat blood work reveals WBC 9, hemoglobin 11.2, platelet count 87. Sodium 136, potassium 3.7, CO2 34, BUN 44 and creatinine 0.8. Blood sugars are running 186-237. AST at 73, ALT 73. Repeat LDH 732. C-reactive protein less than 5. Patient will continue treatment in the hospital until oxygenation is improved and she is down to 5 or 6 L nasal cannula. 07/27: Patient is pulse oxing 91-95% on 15 L high flow nasal cannula. She has been afebrile, heart rate 80, blood pressure 139/81. Blood sugars are running between 163 and 246. Patient is continued on IV Solu-Medrol, supplements, Lovenox. 07/28: Patient has been diuresing very well, she has significant weight loss, per patient she has now lost 45 pounds for the past 2 weeks, shortness breath is also much better, pulse oximetry is now are between 90-96%, 11 L nasal cannula, vital signs stable, no fever no chills, no diarrhea, decreas Bumex now to 2 mg daily, she has dyspnea on exertion, minimal conversational dyspnea however this has improved. No lightheadedness no falls 07/29 patient feels not somewhat worse, she seems to slightly be better, has lost 2 more pounds, still diuresing at nighttime, complains of being tired or sleepy during the day, not sleeping well at night. Appetite is much better, no nausea no respiratory events, still 8 L nasal cannula 91%, still has anasarca mainly in the legs, resolved edema in the upper extremities , start melatonin for sleep hygiene gnosticism, on Zaroxolyn Thursday 2.5, still on Solu-Medrol 60 mg every 6 hours, Bumex at 2 mg IV daily. Potassium at 3.4, being replaced 07/30: Blood sugars are in the low 200s, Levemir will be increased to 50 units daily which will start tomorrow. She is currently on Solu-Medrol 60 mg IV every 6 hours. Patient has been afebrile, heart rate 75, blood pressure 108/56. Pulse ox is 91-94% on 7 L high flow nasal cannula which is an improvement over the weekend. Patient does desaturate with exertion. She has been continued onIV Bumex 2 mg daily, in addition to Zaroxolyn 2.5 mg on Thursday and Thursday. She is diuresing, she is in -2.5 L fluid balance over the last 24 hours. Lower extremity edema is improved. Her stool culture was positive for Vianey albicans, and so was her sputum culture. She is on Diflucan. Her last chest x- ray was yesterday showing persistent interstitial infiltrates. Afrin spray added. 07/31 patient examined bedside. Shortness of breath is improved currently on 4- 1/2 L of oxygen saturating well at 93-95%. The patient's breathing is better. Sinus congestion is better with Afrin spray. Continue Bumex at 2 mg IV daily. Metolazone increased to 2.5 mg daily from Thursday and Thursday. Solu- Medrol switched to prednisone 30 mg by mouth daily. Blood sugar remains to be high Levemir increased to 30 twice a day 08/01: Patient continues to complain of sore mouth. She has already been treated with nystatin and now on Diflucan. We will add and cool solution 3 times daily. She is currently on 8 L high flow nasal cannula with pulse ox of 92%. Afebrile, heart rate 65, blood pressure 118/72. Repeat blood work reveals WBC 18.45. Hemoglobin 11.1, platelet count 217. Potassium is 2.8 and will be replaced with 120 mEq of potassium. Recheck potassium this afternoon. BUN 57, creatinine 1.1. Blood sugar was low this morning at 46 with repeated 63. Scheduled NovoLog discontinued, Levemir decreased from 30 units twice daily to 40 units once at bedtime C-reactive protein less than 0.4. LDH 395. Liver function tests are elevated with total bilirubin 1.3, AST 62, ALT 130, apply phosphatase 139. CTA of the chest showed no acute pulmonary embolism. Scattered groundglass opacities and increased lung markings considered atypical pneumonia or pulmonary edema. 08/02 patient examined bedside. Shortness of breath is worsened since yesterday patient is currently on 15 L high flow oxygen. Patient switched to Solu-Medrol 60 every 6 hours. CTA ordered to rule out pulmonary embolism but was negative for PE patient continues remain on Bumex in addition to Zaroxolyn. 08/03 patient examined bedside. Appears comfortable. She is down trended on oxygen need from 15 L to 6 L nasal cannula. Blood sugar appears to be high with the increase in steroids. Continue Solu-Medrol at 60 every 6. Patient initiated on Zosyn by Dr. Ward. Continue Bumex 1 mg IV every 12 in addition to Zaroxolyn. Zaroxolyn increased to 5 mg daily Continue to monitor patient's vitals continue colchicine Protonix 40 twice a day 08/04: Patient is doing better yesterday her oxygen was down to 6 L but the blood to have low-grade temperature review of her chest CAT scan showed some c onsolidation area around the bronchial tube with scarring from code 19 also shows slight pericardial effusion, echocardiogram will be done today, continue diuretics and be more aggressive with furosemide on the short on the long run. Meanwhile try to decrease her O2 to be under 6 L and hopefully prepare for discharge this week one of the detention with higher flow to at least between 5 and 6 L for the next 2-3 weeks. 08/05: Patient remain on oxygen require around 5 L nasal cannula, decreased cough, no fever or chills. Echocardiogram result came back with very small amount of pericardial effusion no decompression. Patient is not having any fever or chills. Patient is having significant constipation and plan for discharge tomorrow patient wants to go to subacute rehab most [facility] to [facility]. 08/06: Patient is having more shortness of breath along with nausea and more GI symptoms morning not clear etiology her oxygen level dropped down she is up to 7 L today try to keep pulse ox above 92 percentile, EKGs on order CK and troponin will be done along with BNP and patient will be going for CTA to exclude any possibility of pulmonary embolism at this point. Patient is having mild anxiety as well we can use small dose of benzodiazepine. Her discharge planning will be delayed at least the next 24 hours until this is better until make sure from cardiology and pulmonary standpoint she stable. 08/07: Patient evaluated, her oxygen noted to drop to 81% on 7L, she was increased back to 10L and currently is saturating in the lower 90s. Clinically she looks good and does not appear to be in distress. Her CT was negative for PE and showed groundglass infiltrates, but improved from last exam. Discharge held due to her hypoxia this morning. Patient was also refusing her Bumex, after discussion with the patient, she is now agreeable. 08/08: Patient's oxygen saturation dropped down into the 70s when she sat at the side of the bed. She is currently seeing with nonrebreather in place. She does not appear to be in acute distress at rest. Pulse ox is 92-100% on high flow nasal cannula at 11 L. She has been afebrile, heart rate 78, blood pressure 144/79. Blood sugars are running between 159 and 202. She is continued on IV Bumex 1 mg every 12 hours, Solu-Medrol 40 mg IV every 8 hours, Zaroxolyn 5 mg daily 08/09: She was seen today resting in bed. She is currently on 8 L nasal cannula and pulse ox is 98%. We will decrease to 6 L and her nurse will recheck pulse ox. Goal will be to wean down to 5 L with possible discharge tomorrow. Discharge plan is for [facility]. Patient has been afebrile, heart rate 80, blood pressure 115/75. Blood sugars are running between 96 and 189. She is currently on Solu-Medrol 40 mg IV every 8 hours. 08/10: Pulse ox is 91-95% on 6 L nasal cannula. The patient continues to desaturate with minimal movement. She has been afebrile, heart rate 74, blood pressure 97/64. Blood sugars overnight were elevated at 196-344 this morning. No medication changes have been made. Plan is to continue current therapy, monitor over the weekend and plan for discharge to [facility] on Thursday. 08/11: She states that she was able to sit up in a chair for 4 hours yesterday and did well with this. Her oxygenation was maintained. She is currently on 6 L nasal cannula with a pulse ox of 96%. She has been afebrile, heart rate 69, b lood pressure 105/64. Solu-Medrol has been transitioned to prednisone by pulmonary medicine. Blood sugars are decreasing and we will make adjustments to her insulin. 08/12: Patient is sleeping in bed and appears to be comfortable. She awakens easily to verbal stimuli. At rest or pulse ox is 97% on 4 L nasal cannula. Heart rate 60, blood pressure 91/51, afebrile. Repeat blood work reveals sodium 139, potassium 3.7, chloride 95, CO2 32, BUN 90 and creatinine 1.4. Blood sugars are running between 107 and 271. Blood sugars are high in the afternoon and evening. 08/13. Pulse ox is now at 93% on 3 L nasal cannula. She's been afebrile, heart rate 93, blood pressure 91/57. Blood sugars are running between 70 and 251. Medications will be adjusted prior to discharge. Patient is stable will be discharged to [facility] followed by Dr. Betancur. ASSESSMENT AND PLAN 1 acute hypoxic respiratory failure secondary to acute Covid pneumonitis 2 acute Covid pneumonitis with worsening symptoms. 3 COPD, stable 4. Paroxysmal atrial fibrillation, unable to tolerate anticoagulation secondary to acute GI bleed. 5 type 2 diabetes, uncontrolled with hyperglycemia secondary to steroids and episodes of hypoglycemia. 6 chronic diastolic heart failure. 7 peptic ulcer disease. 8 chronic anemia (of chronic disease. 9 mild hyponatremia: Most likely SIADH from pneumonia. 10 Diarrhea. 11. Thrush. 14. Bilateral buttocks ulcer stage II, shearing-type injury. DISCHARGE PLAN [facility] on Thursday. Impression and plan of care have been directed as dictated by the signing physician. Leeann Rose nurse practitioner acting as scribe for signing physician. Patient Condition at Discharge: Good Plan - Discharge Summary Discharge Rx Participant: No New Discharge Prescriptions: New Oxymetazoline 0.05% Nasl [place] [Afrin 0.05% Nasal [place]] 2 spray NASAL BID bottle Potassium Chloride ER [K-Dur 20] 40 meq PO DAILY tab.er.prt Melatonin 6 mg PO HS tablet Nystatin 100,000 Unit/ml Susp [Mycostatin Oral Susp] 3,000,000 unit PO TID #15 dose INSULIN ASPART (NovoLOG) [NovoLOG (formulary)] 0 unit SQ ACHS vial Zinc Sulfate [Orazinc] 220 mg PO DAILY cap Cholestyramine (with Sugar) [Questran Packet] 4 gm PO BID@1000,1800 packet Benzonatate [Tessalon Perles] 100 mg PO TID cap metOLazone [Zaroxolyn] 5 mg PO DAILY tab INSULIN ASPART (NovoLOG) [NovoLOG (formulary)] 3 unit SQ AC-BRKFST vial Continue sitaGLIPtin [Januvia] 100 mg PO HS Flecainide [Tambocor] 50 mg PO Q12HR Metoprolol Tartrate 12.5 mg PO DAILY #90 tab Ascorbic Acid/Multivit-Min [Emergen-C 1,000 mg Packet] 1,000 mg PO DAILY Cholecalciferol (Vitamin D3) [Vitamin D3 (5000 Iu)] 125 mcg PO DAILY Pantoprazole Sodium [Protonix] 40 mg PO BID Diclofenac Sodium [Voltaren Arthritis Pain 1% Gel] 2 gm TOPICAL QID PRN PRN Reason: Pain Albuterol Inhaler [Ventolin Hfa Inhaler] 2 puff INHALATION RT-Q6H PRN PRN Reason: Shortness Of Breath Acetaminophen-Codeine 300-30mg [Tylenol w/codeine #3] 1 tab PO Q6H PRN #12 tab PRN Reason: Pain Changed Bumetanide [BUMEX] 1 mg PO BID #0 Insulin Glargine,Hum.rec.anlog [Lantus Solostar] 40 unit SQ DAILY #0 Discontinued Potassium Gluconate 99 mg PO DAILY Azithromycin [Zithromax] See Taper PO DAILY Discharge Medication List sitaGLIPtin [Januvia] 100 mg PO HS 10/18/18 [History] Flecainide [Tambocor] 50 mg PO Q12HR 10/20/19 [History] Metoprolol Tartrate 12.5 mg PO DAILY #90 tab 10/21/19 [Rx] Ascorbic Acid/Multivit-Min [Emergen-C 1,000 mg Packet] 1,000 mg PO DAILY 07/09/20 [History] Cholecalciferol (Vitamin D3) [Vitamin D3 (5000 Iu)] 125 mcg PO DAILY 07/09/20 [History] Diclofenac Sodium [Voltaren Arthritis Pain 1% Gel] 2 gm TOPICAL QID PRN 07/09/20 [History] Pantoprazole Sodium [Protonix] 40 mg PO BID 07/09/20 [History] Albuterol Inhaler [Ventolin Hfa Inhaler] 2 puff INHALATION RT-Q6H PRN 07/16/20 [History] Acetaminophen-Codeine 300-30mg [Tylenol w/codeine #3] 1 tab PO Q6H PRN #12 tab 08/12/20 [Rx] Benzonatate [Tessalon Perles] 100 mg PO TID cap 08/12/20 [Rx] Bumetanide [BUMEX] 1 mg PO BID #0 08/12/20 [Rx] Cholestyramine (with Sugar) [Questran Packet] 4 gm PO BID@1000,1800 packet 08/12/20 [Rx] INSULIN ASPART (NovoLOG) [NovoLOG (formulary)] 0 unit SQ ACHS vial 08/12/20 [Rx] Melatonin 6 mg PO HS tablet 08/12/20 [Rx] Nystatin 100,000 Unit/ml Susp [Mycostatin Oral Susp] 3,000,000 unit PO TID #15 dose 08/12/20 [Rx] Oxymetazoline 0.05% Nasl [place] [Afrin 0.05% Nasal [place]] 2 spray NASAL BID bottle 08/12/20 [Rx] Potassium Chloride ER [K-Dur 20] 40 meq PO DAILY tab.er.prt 08/12/20 [Rx] Zinc Sulfate [Orazinc] 220 mg PO DAILY cap 08/12/20 [Rx] metOLazone [Zaroxolyn] 5 mg PO DAILY tab 08/12/20 [Rx] INSULIN ASPART (NovoLOG) [NovoLOG (formulary)] 3 unit SQ AC-BRKFST vial 08/13/20 [Rx] Insulin Glargine,Hum.rec.anlog [Lantus Solostar] 40 unit SQ DAILY #0 08/13/20 [Rx] Follow up Appointment(s)/Referral(s): Heide Valles, [NON-STAFF] - As Needed [facility], [NON-STAFF] - As Needed Derrell Chavez MD [STAFF PHYSICIAN] - 08/29/20 3:30 pm Ld Betancur MD [Primary Care Provider] - 1 Week (at [facility] ) Discharge Disposition: TRANSFER TO SNF/ECF
[2020-08-13 10:45] VITALS: BP 107/63; PULSE 74; TEMP 96.7
[2020-08-13] MEDS: CHOLESTYRAMINE (WITH SUGAR) 4 GM PACKET PO SCH (11:27)
[2020-08-13 11:59] LABS: Glucose,Whole Blood 257 mg/dL (75-99)
== END 2020-08-13 13:17 | DRG 177 ==
LOC: EC 15:35 → 4SSUR 17:32
PROVIDERS: ADMIT Internal Medicine Geriatric Medicine; ATTEND Internal Medicine Geriatric Medicine
PROC: 3E0333Z Introduction of Anti-inflammatory into Peripheral Vein, Percutaneous Approach (ICD-10-PCS; principal; 2020-07-23 15:45)
PROC: XW13325 Transfusion of Convalescent Plasma (Nonautologous) into Peripheral Vein, Percutaneous Approach, New Technology Group 5 (ICD-10-PCS; 2020-07-23 15:45)
DX: U07.1 COVID-19 (principal); J12.82 Pneumonia due to coronavirus disease 2019; J96.01 Acute respiratory failure with hypoxia; Z68.42 Body mass index [BMI] 45.0-49.9, adult; I50.32 Chronic diastolic (congestive) heart failure; E22.2 Syndrome of inappropriate secretion of antidiuretic hormone; R04.2 Hemoptysis; E66.01 Morbid (severe) obesity due to excess calories; I48.0 Paroxysmal atrial fibrillation; Z79.01 Long term (current) use of anticoagulants; E11.65 Type 2 diabetes mellitus with hyperglycemia; Z79.4 Long term (current) use of insulin; G47.33 Obstructive sleep apnea (adult) (pediatric); K27.9 Peptic ulcer, site unspecified, unspecified as acute or chronic, without hemorrhage or perforation; D64.9 Anemia, unspecified; T38.0X5A Adverse effect of glucocorticoids and synthetic analogues, initial encounter; H91.90 Unspecified hearing loss, unspecified ear; F40.240 Claustrophobia; M19.90 Unspecified osteoarthritis, unspecified site; M54.9 Dorsalgia, unspecified; Z66 Do not resuscitate; R19.7 Diarrhea, unspecified; B37.9 Candidiasis, unspecified; K13.79 Other lesions of oral mucosa; K59.00 Constipation, unspecified; F41.9 Anxiety disorder, unspecified; L98.419 Non-pressure chronic ulcer of buttock with unspecified severity; R63.4 Abnormal weight loss; F32.9 Major depressive disorder, single episode, unspecified
CPT/HCPCS: 36410; 36415; 71045; 71275; 76937; 80048; 80053; 82553; 82728; 83036; 83605; 83615; 83630; 83735; 83880; 84145; 84484; 85025; 85027; 85379; 85610; 85730; 86140; 86850; 86900; 86901; 87040; 87045; 87046; 87070; 87205; 87324; 87502; 87635; 93005; 93306; 94640; 94760; 94762

== ENCOUNTER 2020-08-22 18:40 | Inpatient (IN) | payer MEDICARE, OTHER ==
[2020-08-22 19:14] LABS: Anisocytosis Moderate; Basophils # (A) 0.1 k/uL (0-0.2); Basophils % (A) 1 %; Eosinophils # (A) 0.1 k/uL (0-0.7); Eosinophils % (A) 1 %; HCT 41.5 % (34.0-46.0); Hypochromasia Moderate; Lymphocytes # (A) 0.7 k/uL (1.0-4.8); Lymphocytes % (A) 13 %; MCHC 31.2 g/dL (31.0-37.0); Mean Platelet Volume 9.9; Microcytosis Moderate; Monocytes # (A) 0.3 k/uL (0-1.0); Monocytes % (A) 6 %; Neutrophils # (A) 3.8 k/uL (1.3-7.7); Neutrophils % (A) 76 %; Poikilocytosis Slight; RBC 5.18 m/uL (3.80-5.40); RDW 23.6 % (11.5-15.5)
[2020-08-22 19:24] LABS: Albumin 2.7 g/dL (3.5-5.0); Calcium 8.6 mg/dL (8.4-10.2); Magnesium 2.5 mg/dL (1.6-2.3); Potassium 3.1 mmol/L (3.5-5.1); Total Bilirubin 2.5 mg/dL (0.2-1.3); Total Protein 5.9 g/dL (6.3-8.2)
[2020-08-22 19:26] LABS: INR 1.2 (<1.2); Partial Thromboplastin Time 26.7 sec (22.0-30.0); Platelet Count 85 k/uL (150-450)
[2020-08-22] MEDS ORDERED: HEPARIN SODIUM,PORCINE 5,000 UNIT/ML 1 ML VIAL IV STA (19:37)
[2020-08-22] MEDS ORDERED: SODIUM CHLORIDE 0.9% 1,000 ML IV STA (19:37)
[2020-08-22] MEDS ORDERED: ONDANSETRON 4 MG/2 ML VIAL IVP PRN (19:41)
[2020-08-22] MEDS ORDERED: TEMAZEPAM 15 MG CAP PO PRN (19:41)
[2020-08-22] MEDS ORDERED: MAG HYDROX/AL HYDROX/SIMETH 30 ML CUP PO PRN (19:41)
[2020-08-22] MEDS ORDERED: NALOXONE 0.4 MG/ML 1 ML VIAL IV PRN (19:41)
--- NOTE | 2020-08-22 19:41 | ED ---
SOB HPI - General Chief Complaint: Shortness of Breath Stated Complaint: R/O PE Time Seen by Provider: 08/22/20 18:44 Source: patient, EMS Mode of arrival: EMS - History of Present Illness Initial Comments: Patient presents with shortness of breath, not feeling well. She was diagnosed with a DVT in the right leg today. She has no belly pain. She has no chest pain. She has no pressure in the chest. She has no nausea or vomiting or diaphoresis. She has taken no medicine for her symptoms. She wasn't doing anything when this began. - Related Data Home Medications Medication Instructions Recorded Confirmed sitaGLIPtin [Januvia] 100 mg PO HS 10/18/18 07/16/20 Flecainide [Tambocor] 50 mg PO Q12HR 10/20/19 07/16/20 Ascorbic Acid/Multivit-Min 1,000 mg PO DAILY 07/09/20 07/16/20 [Emergen-C 1,000 mg Packet] Cholecalciferol (Vitamin D3) 125 mcg PO DAILY 07/09/20 07/16/20 [Vitamin D3 (5000 Iu)] Diclofenac Sodium [Voltaren 2 gm TOPICAL QID PRN 07/09/20 07/16/20 Arthritis Pain 1% Gel] Pantoprazole Sodium [Protonix] 40 mg PO BID 07/09/20 07/16/20 Albuterol Inhaler [Ventolin Hfa 2 puff INHALATION RT-Q6H PRN 07/16/20 07/16/20 Inhaler] Previous Rx's Medication Instructions Recorded Metoprolol Tartrate 12.5 mg PO DAILY #90 tab 10/21/19 Acetaminophen-Codeine 300-30mg 1 tab PO Q6H PRN #12 tab 08/12/20 [Tylenol w/codeine #3] Benzonatate [Tessalon Perles] 100 mg PO TID cap 08/12/20 Bumetanide [BUMEX] 1 mg PO BID #0 08/12/20 Cholestyramine (with Sugar) 4 gm PO BID@1000,1800 packet 08/12/20 [Questran Packet] INSULIN ASPART (NovoLOG) [NovoLOG 0 unit SQ ACHS vial 08/12/20 (formulary)] Melatonin 6 mg PO HS tablet 08/12/20 Nystatin 100,000 Unit/ml Susp 3,000,000 unit PO TID #15 dose 08/12/20 [Mycostatin Oral Susp] Oxymetazoline 0.05% Nasl [place] 2 spray NASAL BID bottle 08/12/20 [Afrin 0.05% Nasal [place]] Potassium Chloride ER [K-Dur 20] 40 meq PO DAILY tab.er.prt 08/12/20 Zinc Sulfate [Orazinc] 220 mg PO DAILY cap 08/12/20 metOLazone [Zaroxolyn] 5 mg PO DAILY tab 08/12/20 INSULIN ASPART (NovoLOG) [NovoLOG 3 unit SQ AC-BRKFST vial 08/13/20 (formulary)] Insulin Glargine,Hum.rec.anlog 40 unit SQ DAILY #0 08/13/20 [Lantus Solostar] Allergies Allergy/AdvReac Type Severity Reaction Status Date / Time adhesive tape Allergy tears skin Verified 07/16/20 16:44 ciprofloxacin [From Cipro] Allergy Rash/Hives Verified 07/16/20 16:44 doxycycline Allergy Rash/Hives Verified 07/16/20 16:44 hydrochlorothiazide Allergy Unknown Verified 07/16/20 16:44 pioglitazone [From Actos] Allergy Swelling Verified 07/16/20 16:44 "HCL" AdvReac Cough Uncoded 07/09/20 13:34 Review of Systems ROS Statement: Those systems with pertinent positive or pertinent negative responses have been documented in the HPI. ROS Other: All systems not noted in ROS Statement are negative. Past Medical History Past Medical History: Atrial Fibrillation, Heart Failure, Diabetes Mellitus, Osteoarthritis (OA) Additional Past Medical History / Comment(s): states SOB, back pain-receiving physical therapy., has Lap Band (does not think there is fluid in it), [place], See Cardiology H & P. History of Any Multi-Drug Resistant Organisms: None Reported Past Surgical History: Bariatric Surgery, Hysterectomy, Joint Replacement, Orthopedic Surgery Additional Past Surgical History / Comment(s): katie knee replacements,katie knee arthroscopies,katie ovaries removed,lap band placed x 2-"doesn't think there is fluid is present", cataracts. Past Anesthesia/Blood Transfusion Reactions: Previous Problems w/ Anesthesia, Family History of Problems w/ Anesthesia, Motion Sickness Additional Past Anesthesia/Blood Transfusion Reaction / Comment(s): states she was alert when I was getting put under and the tube going into my throat and I panicked, trouble waking up with general anesthesia. mother-ponv Past Psychological History: Depression Smoking Status: Never smoker Past Alcohol Use History: Occasional Past Drug Use History: None Reported - Past Family History Mother Additional Family Medical History / Comment(s): breast,bladder,lung Father Family Medical History: No Reported History General Exam General appearance: alert, in no apparent distress Head exam: Present: atraumatic, normocephalic, normal inspection Eye exam: Present: normal appearance, PERRL, EOMI. Absent: scleral icterus, conjunctival injection, periorbital swelling ENT exam: Present: normal exam, mucous membranes moist Neck exam: Present: normal inspection. Absent: tenderness, meningismus, lymphadenopathy Respiratory exam: Present: normal lung sounds bilaterally. Absent: respiratory distress, wheezes, rales, rhonchi, stridor Cardiovascular Exam: Present: irregular rhythm, normal heart sounds. Absent: systolic murmur, diastolic murmur, rubs, gallop, clicks GI/Abdominal exam: Present: soft, normal bowel sounds. Absent: distended, tenderness, guarding, rebound, rigid Extremities exam: Present: tenderness, pedal edema, calf tenderness Back exam: Present: normal inspection Neurological exam: Present: alert, oriented X3, CN II-XII intact Psychiatric exam: Present: normal affect, normal mood Skin exam: Present: warm, dry, intact, normal color. Absent: rash Course Vital Signs 08/22/20 08/22/20 18:48 19:13 Temperature 97.1 F L Pulse Rate 83 78 Respiratory 22 22 Rate Blood Pressure 83/51 83/54 O2 Sat by Pulse 96 98 Oximetry Medical Decision Making - Lab Data Result diagrams: 08/22/20 19:10 08/22/20 19:10 Lab Results 08/22/20 08/22/20 08/22/20 Range/Units 19:10 19:10 19:10 WBC 5.0 (3.8-10.6) k/uL RBC 5.18 (3.80-5.40) m/uL Hgb 13.0 (11.4-16.0) gm/dL Hct 41.5 (34.0-46.0) % MCV 80.0 (80.0-100.0) fL MCH 25.0 (25.0-35.0) pg MCHC 31.2 (31.0-37.0) g/dL RDW 23.6 H (11.5-15.5) % Plt Count 85 L D (150-450) k/uL MPV 9.9 Neutrophils % 76 % Lymphocytes % 13 % Monocytes % 6 % Eosinophils % 1 % Basophils % 1 % Neutrophils # 3.8 (1.3-7.7) k/uL Lymphocytes # 0.7 L (1.0-4.8) k/uL Monocytes # 0.3 (0-1.0) k/uL Eosinophils # 0.1 (0-0.7) k/uL Basophils # 0.1 (0-0.2) k/uL Manual Slide Review Performed Hypochromasia Moderate Poikilocytosis Slight Anisocytosis Moderate Microcytosis Moderate PT 12.0 (9.0-12.0) sec INR 1.2 H (<1.2) APTT 26.7 (22.0-30.0) sec Sodium 135 L (137-145) mmol/L Potassium 3.1 L (3.5-5.1) mmol/L Chloride 95 L (98-107) mmol/L Carbon Dioxide 29 (22-30) mmol/L Anion Gap 11 mmol/L BUN 103 H* (7-17) mg/dL Creatinine 2.01 H (0.52-1.04) mg/dL Est GFR (CKD-EPI)AfAm 28 (>60 ml/min/1.73 sqM) Est GFR (CKD-EPI)NonAf 24 (>60 ml/min/1.73 sqM) Glucose 106 H (74-99) mg/dL Plasma Lactic Acid Ubaldo (0.7-2.0) mmol/L Calcium 8.6 (8.4-10.2) mg/dL Magnesium 2.5 H (1.6-2.3) mg/dL Total Bilirubin 2.5 H (0.2-1.3) mg/dL AST 72 H (14-36) U/L ALT 115 H (4-34) U/L Alkaline Phosphatase 312 H (38-126) U/L Troponin I (0.000-0.034) ng/mL Total Protein 5.9 L (6.3-8.2) g/dL Albumin 2.7 L (3.5-5.0) g/dL 08/22/20 08/22/20 Range/Units 19:10 19:10 WBC (3.8-10.6) k/uL RBC (3.80-5.40) m/uL Hgb (11.4-16.0) gm/dL Hct (34.0-46.0) % MCV (80.0-100.0) fL MCH (25.0-35.0) pg MCHC (31.0-37.0) g/dL RDW (11.5-15.5) % Plt Count (150-450) k/uL MPV Neutrophils % % Lymphocytes % % Monocytes % % Eosinophils % % Basophils % % Neutrophils # (1.3-7.7) k/uL Lymphocytes # (1.0-4.8) k/uL Monocytes # (0-1.0) k/uL Eosinophils # (0-0.7) k/uL Basophils # (0-0.2) k/uL Manual Slide Review Hypochromasia Poikilocytosis Anisocytosis Microcytosis PT (9.0-12.0) sec INR (<1.2) APTT (22.0-30.0) sec Sodium (137-145) mmol/L Potassium (3.5-5.1) mmol/L Chloride (98-107) mmol/L Carbon Dioxide (22-30) mmol/L Anion Gap mmol/L BUN (7-17) mg/dL Creatinine (0.52-1.04) mg/dL Est GFR (CKD-EPI)AfAm (>60 ml/min/1.73 sqM) Est GFR (CKD-EPI)NonAf (>60 ml/min/1.73 sqM) Glucose (74-99) mg/dL Plasma Lactic Acid Ubaldo 3.1 H* (0.7-2.0) mmol/L Calcium (8.4-10.2) mg/dL Magnesium (1.6-2.3) mg/dL Total Bilirubin (0.2-1.3) mg/dL AST (14-36) U/L ALT (4-34) U/L Alkaline Phosphatase (38-126) U/L Troponin I 0.245 H* (0.000-0.034) ng/mL Total Protein (6.3-8.2) g/dL Albumin (3.5-5.0) g/dL 08/22/20 19:40 Twelve-lead EKG shows ventricular rate 76 bpm, no P waves are present, the QRS complexes are normal, no ST elevation or depression, interpreted by me as atrial fibrillation. Disposition Clinical Impression: DVT (deep venous thrombosis), Lactic acid acidosis, NSTEMI (non-ST elevated myocardial infarction) Disposition: ADMITTED IP TO THIS HOSP Referrals: Ld Betancur MD [Primary Care Provider] - 1-2 days
[2020-08-22] MEDS ORDERED: ALBUTEROL HFA INHALER INHALATION PRN (19:43)
[2020-08-22] MEDS: HEPARIN SOD,PORK IN 0.45% NACL 25,000 UNIT in 0.45% NACL 1 250ML.BAG IV SCH (19:58)
[2020-08-22] MEDS ORDERED: NYSTATIN 100,000 UNIT/ML SUSP 500,000 UNIT/5 ML CUP PO SCH (22:00)
[2020-08-22] MEDS: FLECAINIDE 50 MG TAB PO SCH (22:17)
[2020-08-22 22:39] LABS: Glucose,Whole Blood 158 mg/dL (75-99)
[2020-08-22] MEDS: BENZONATATE 100 MG CAP PO SCH (23:13)
[2020-08-22] MEDS: LINAGLIPTIN 5 MG TABLET PO SCH (23:19)
[2020-08-22] MEDS: INSULIN ASPART (NovoLOG) 100 UNIT/ML VIAL SQ SCH (23:19)
[2020-08-22] MEDS: OXYMETAZOLINE 0.05% NASL SPRAY 1 SPRAY BOTTLE NASAL SCH (23:20)
[2020-08-22] MEDS: HYDROcodone/APAP 5-325MG 1 EACH TAB PO PRN (23:49)
[2020-08-23 06:30] LABS: Glucose,Whole Blood 85 mg/dL (75-99)
[2020-08-23] MEDS: HYDROcodone/APAP 5-325MG 1 EACH TAB PO PRN (06:54)
[2020-08-23] MEDS: INSULIN ASPART (NovoLOG) 100 UNIT/ML VIAL SQ SCH ×5 (07:50→21:54)
[2020-08-23] MEDS: FLECAINIDE 50 MG TAB PO SCH ×2 (08:43→21:57)
[2020-08-23] MEDS: BENZONATATE 100 MG CAP PO SCH ×3 (08:43→21:57)
[2020-08-23] MEDS: CHOLECALCIFEROL 25 MCG (1000 IU) TABLET PO SCH (08:43)
[2020-08-23] MEDS: METOPROLOL TARTRATE 12.5 MG TAB PO SCH (08:43)
[2020-08-23] MEDS: ZINC SULFATE 220 MG CAP PO SCH (08:43)
[2020-08-23] MEDS: CHOLESTYRAMINE (WITH SUGAR) 4 GM PACKET PO SCH ×2 (08:44→19:23)
[2020-08-23] MEDS: OXYMETAZOLINE 0.05% NASL SPRAY 1 SPRAY BOTTLE NASAL SCH ×2 (08:44→21:57)
[2020-08-23] MEDS ORDERED: metOLazone 5 MG TAB PO SCH (09:00)
[2020-08-23 10:46] LABS: D-Dimer 5.46 mg/L FEU (<0.60)
--- NOTE | 2020-08-23 11:00 | ECHOF ---
Referral Reason:pulmonary embolism MEASUREMENTS -------- HEIGHT: 165.1 cm WEIGHT: 124.3 kg BP: 93/51 IVSd: 1.9 cm (0.6 - 1.1) LVIDd: 4.3 cm (3.9 - 5.3) LVPWd: 1.7 cm (0.6 - 1.1) IVSs: 2.4 cm LVIDs: 3.6 cm LVPWs: 1.8 cm LA Diam: 4.4 cm (2.7 - 3.8) MV EXCURSION: 20.130 mm (> 18.000) MV EF SLOPE: 111 mm/s (70 - 150) EPSS: 0.6 cm AV maxP.60 mmHg AV meanP.91 mmHg RAP: 5.00 mmHg RVSP: 18.61 mmHg FINDINGS -------- Sinus rhythm. Morbid Obesity Pt was in 08/04/20 positive for Covid, echo done: echo 08/23/20 for pe. The left ventricular size is normal. There is moderate concentric left ventricular hypertrophy. O verall left ventricular systolic function is normal with, an EF between 55 - 60 %. The left atrium is moderately dilated. The right atrial size is normal. 5.0mg OF Lumason UTLIZED: 2 OR MORE WALL SEGMENTS NOT VISUALIZED. There is mild aortic stenosis present. Peak/mean gradient across the Aortic Valve is 20.60mmHg / 8. 91mmHg. Mild mitral annular calcification present. Mild mitral regurgitation is present. The tricuspid valve appears structurally normal. Mild tricuspid regurgitation present. Right vent ricular systolic pressure is normal at < 35 mmHg. The pulmonic valve was not well visualized. There is no pulmonic regurgitation present. The aortic root size is normal. There is a trivial pericardial effusion present. CONCLUSIONS -------- 1. Morbid Obesity 2. Pt was in 08/04/20 positive for Covid, echo done: echo 08/23/20 for pe. 3. There is moderate concentric left ventricular hypertrophy. 4. Overall left ventricular systolic function is normal with, an EF between 55 - 60 %. 5. The left atrium is moderately dilated. 6. 5.0mg OF Lum[place] UTLIZED: 2 OR MORE WALL SEGMENTS NOT VISUALIZED. 7. There is mild aortic stenosis present. 8. Peak/mean gradient across the Aortic Valve is 20.60mmHg / 8.91mmHg. 9. Mild mitral regurgitation is present. 10. Mild tricuspid regurgitation present. 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
[2020-08-23] MEDS ORDERED: DICLOFENAC SODIUM GEL 100 GM TUBE TOPICAL PRN (11:44)
[2020-08-23] MEDS ORDERED: Acetaminophen-Codeine 300-30mg TAB PO PRN (11:44)
--- NOTE | 2020-08-23 11:46 | P.HPIM ---
History of Present Illness H&P Date: 08/23/20 Chief Complaint: weakness HISTORY OF PRESENT ILLNESS This is a 75-year-old female patient of Dr. Betancur with past medical history significant for COVID-19 pneumonia diagnosed July 17 with a month long hospitalization, chronic hypoxic respiratory failure secondary to Covid, paroxysmal atrial fibrillation on eliquis, diabetes mellitus type 2, chronic diastolic heart failure, peptic ulcer disease, chronic anemia. Patient was discharged from the hospital and when to [facility] for subacute rehab. She has been maintained on 2 L nasal cannula. Patient was apparently diagnosed with a DVT in her right lower extremity yesterday. She states that she had a panic attack and she couldn't catch her breath and in general she was not feeling w ell. She states she feels like they are force-feeding her and just wants to be left alone. She complains of dehydration and feeling dry. No chest pain. No nausea, vomiting. No abdominal pain. Patient was apparently sent here to be evaluated for possible pulmonary embolism. Patient was afebrile, heart rate 83, blood pressure 83/51, pulse ox 96%. Platelet count 85, WBC 5, hemoglobin 12. Sodium 135, potassium 3.1, chloride 95, CO2 29, BUN 103, creatinine 2.01. Blood sugar 106 magnesium 2.5. Total bilirubin 2.5, AST 72, ALT 115, alkaline phosphatase 312. Lactic acid 3.1. Troponin 0.245. EKG was atrial fibrillation with no acute ST changes. Noted that patient's troponins were positive on last admission and trending down. Patient was started on heparin drip, [facility] and consult with cardiology for elevated troponins, nephrology for acute kidney injury and pulmonary was added for rule out PE. We'll consult in place for multiple pressure ulcers on the coccyx area present on admission. VQ scan was ordered and canceled after discussion with pulmonary medicine. Echocardiogram reveals EF of 55-60% with mild aortic stenosis, mild mitral regurgitation, mild tricuspid regurgitation. REVIEW OF SYSTEMS Constitutional: No fever, no chills, no night sweats. No weight change. Reports weakness, Reportsfatigue. No daytime sleepiness. EENT: No headache. No blurred vision or double vision, no loss of vision. No loss of Hearing, no ringing in the ears, no dizziness. No nasal drainage or congestion. No epistaxis. No sore throat. Lungs: Reports shortness of breath, cough, no sputum production. No wheezing. Cardiovascular: No chest pain, Reports lower extremity edema. No palpitations. No paroxysmal nocturnal dyspnea. No orthopnea. No lightheadedness or dizziness. No syncopal episodes. Abdominal: No abdominal pain. No nausea, vomiting. No diarrhea. No constipation. No bloody or tarry stools.. No loss of appetite. Genitourinary: No dysuria, increased frequency, urgency. No urinary retention. Musculoskeletal: No myalgias. Reports muscle weakness, no gait dysfunction, no frequent falls. No back pain. No neck pain. Integumentary: No wounds, no lesions. No rash or pruritus. No unusual bruising. No change in hair or nails. Neurologic: No aphasia. No facial droop. No change in mentation. No head injury. No headache. No paralysis. No paresthesia. Psychiatric: No depression. Reports anxiety. No mood swings. Endocrine: No abnormal blood sugars. No weight change. SOCIAL HISTORY Patient currently was a lifelong nonsmoker. No alcohol use/abuse. No illicit drug use. Patient lives at home with her . She is currently at [facility] for subacute rehab. FAMILY HISTORY Mother at age 72 from lung cancer with history of coronary artery disease. Father in his late 60s from a head trauma. Patient has one brother that is alive and broke his neck when he was young. Patient has one sister with COPD. Patient has one daughter age 53 with anxiety and one son with osteoarthritis. PHYSICAL EXAMINATION Gen: This is a morbidly obese 75-year-old female. Patient is resting in bed and appears to be in no acute distress. No respiratory distress is noted. HEENT: Head is atraumatic, normocephalic. Pupils equal, round. Sclerae is anicteric. NECK: Supple. No JVD. No lymphadenopathy. No thyromegaly. LUNGS: Clear to auscultation. No wheezes or rhonchi. No intercostal retr actions. HEART: Irregular rate and rhythm. Systolic murmur. ABDOMEN: Soft. Bowel sounds are present. No masses. No tenderness. EXTREMITIES: 1+ pedal edema. No calf tenderness. NEUROLOGICAL: Patient is awake, alert and oriented x3. Cranial nerves 2 through 12 are grossly intact. ASSESSMENT AND PLAN 1. Acute lactic acidosis, status post 1 L of IV fluids, continue protocol. 2. Acute kidney injury with metabolic acidosis. Consult with nephrology. Patient is status post 1 L of IV fluids. IV fluids at 50 mL per hour will be started, avoid nephrotoxic agents, hold Bumex and Zaroxolyn. 3. Elevated troponin with downtrending since last admission. Do not suspect non-ST NM. Cardiology consult. Echocardiogram as above. 4. New diagnosis of right lower extremity DVT. Patient is on a heparin drip. Discussed with pulmonary medicine and VQ scan would not give us an accurate reading due to Covid 19 lung changes. Patient is a candidate for CTA due to elevated creatinine. Continue heparin drip. Pulmonary consult. 5. Elevated liver function test most likely secondary to Covid 19 as she was normal on her past admission initially. Numbers are stable from August 15. Liver ultrasound ordered. 6. Chronic thrombocytopenia. Continue to monitor. 7. Chronic hypoxic respiratory failure on oxygen at 2-3 L nasal cannula. Continue oxygen therapy. Pulmonary consult. 8. Paroxysmal atrial fibrillation. Continue flecainide 50 g twice daily, Lopressor 12.5 mg daily, eliquis 2.5 mg twice daily. 9. Diabetes mellitus type 2. Continue Levemir 40 units daily, NovoLog 3 units with breakfast and NovoLog scale before meals and at bedtime, Januvia 100 mg da myriam or equivalent. 10. Recent Covid 19 pneumonia with elevated inflammatory markers, stable. Cont inue albuterol inhaler as needed. 11. Chronic diastolic heart failure. Bumex and Zaroxolyn on hold. Cardiology consult. 12. Peptic ulcer disease and GI prophylaxis. Protonix 40 mg twice daily. 13. Stage II decubitus ulcers to the coccyx area. Wound Center consult. 14. DVT prophylaxis. Heparin drip for now and transition to eliquis. Patient will be admitted to the hospital for a minimum of 2 night stay. DISCHARGE PLAN RETURN TO [facility] FOR SUBACUTE REHAB. Impression and plan of care have been directed as dictated by the signing physician. Leeann Rose nurse practitioner acting as scribe for signing physician. Past Medical History Past Medical History: Atrial Fibrillation, Heart Failure, Diabetes Mellitus, Osteoarthritis (OA) Additional Past Medical History / Comment(s): states SOB, back pain-receiving physical therapy., has Lap Band (does not think there is fluid in it), [place], See Cardiology H & P. History of Any Multi-Drug Resistant Organisms: None Reported Past Surgical History: Bariatric Surgery, Hysterectomy, Joint Replacement, Orthopedic Surgery Additional Past Surgical History / Comment(s): katie knee replacements,katie knee arthroscopies,katie ovaries removed,lap band placed x 2-"doesn't think there is fluid is present", cataracts. Past Anesthesia/Blood Transfusion Reactions: Previous Problems w/ Anesthesia, Family History of Problems w/ Anesthesia, Motion Sickness Additional Past Anesthesia/Blood Transfusion Reaction / Comment(s): states she was alert when I was getting put under and the tube going into my throat and I panicked, trouble waking up with general anesthesia. mother-ponv Past Psychological History: Depression Additional Psychological History / Comment(s): past depression-denies problem now. Smoking Status: Never smoker Past Alcohol Use History: Occasional Past Drug Use History: None Reported Additional Drug Use History / Comment(s): HX OF CBD OIL USE. - Past Family History Mother Additional Family Medical History / Comment(s): breast,bladder,lung Father Family Medical History: No Reported History Medications and Allergies Home Medications Medication Instructions Recorded Confirmed Type sitaGLIPtin [Januvia] 100 mg PO DAILY@0800 10/18/18 08/22/20 History Flecainide [Tambocor] 50 mg PO BID@0800,2100 10/20/19 08/22/20 History Cholecalciferol (Vitamin D3) 125 mcg PO DAILY@1700 07/09/20 08/22/20 History [Vitamin D3 (5000 Iu)] Diclofenac Sodium [Voltaren 2 gm TOPICAL QID PRN 07/09/20 08/22/20 History Arthritis Pain 1% Gel] Pantoprazole Sodium [Protonix] 40 mg PO BID@0800,1700 07/09/20 08/22/20 History Albuterol Inhaler [Ventolin Hfa 2 puff INHALATION RT-Q6H PRN 07/16/20 08/22/20 History Inhaler] Acetaminophen-Codeine 300-30mg 1 tab PO Q6H PRN #12 tab 08/12/20 08/22/20 Rx [Tylenol w/codeine #3] Cholestyramine (with Sugar) 4 gm PO BID@1000,1800 packet 08/12/20 08/22/20 Rx [Questran Packet] Melatonin 6 mg PO HS tablet 08/12/20 08/22/20 Rx Apixaban [Eliquis] 2.5 mg PO BID@0800,1700 08/22/20 08/22/20 History Ascorbic Acid [Vitamin C] 1,000 mg PO DAILY@1700 08/22/20 08/22/20 History Benzonatate [Tessalon Perles] 100 mg PO TID@0800,1200,1700 08/22/20 08/22/20 History Bumetanide [Bumex] 1 mg PO BID@0800,1700 08/22/20 08/22/20 History Insulin Aspart [NovoLOG Flexpen] 3 units SQ DAILY@0700 08/22/20 08/22/20 History Insulin Aspart [NovoLOG Flexpen] 6 units SQ AC-BID@1100,1630 08/22/20 08/22/20 History Insulin Aspart [NovoLOG Flexpen] See Protocol SQ ACHS 08/22/20 08/22/20 History Insulin Glargine,Hum.rec.anlog 40 unit SQ HS@2130 08/22/20 08/22/20 History [Lantus Solostar] Magic Butt Paste 1 applic TOPICAL DAILY PRN 08/22/20 08/22/20 History Magic Butt Paste 1 applic TOPICAL TID 08/22/20 08/22/20 History Magnesium Hydroxide [Milk of 7,200 mg PO Q48H PRN 08/22/20 08/22/20 History Magnesia Concentrate] Metoprolol Tartrate [Lopressor] 12.5 mg PO DAILY@0800 08/22/20 08/22/20 History Na Phos,M-B/Na Phos,Di-Ba [Fleet 133 ml RECTAL DAILY PRN 08/22/20 08/22/20 History Adult] Oxymetazoline 0.05% Nasl [place] 2 spray EA NOSTRIL BID@0800,1700 08/22/20 08/22/20 History [Afrin 0.05% Nasal [place]] Potassium Chloride ER [K-Dur 20] 40 meq PO DAILY@1700 08/22/20 08/22/20 History SILVER sulfADIAZINE CREAM 1 applic TOPICAL BID 08/22/20 08/22/20 History [Silvadene Cream] Zinc Sulfate [Orazinc] 220 mg PO DAILY@1700 08/22/20 08/22/20 History bisacodyL [Bisacodyl] 10 mg RECTAL DAILY PRN 08/22/20 08/22/20 History metOLazone [Zaroxolyn] 5 mg PO DAILY@0600 08/22/20 08/22/20 History Allergies Allergy/AdvReac Type Severity Reaction Status Date / Time adhesive tape Allergy tears skin Verified 08/22/20 20:01 ciprofloxacin [From Cipro] Allergy Rash/Hives Verified 08/22/20 20:01 doxycycline Allergy Rash/Hives Verified 08/22/20 20:01 hydrochlorothiazide Allergy Unknown Verified 08/22/20 20:01 pioglitazone [From Actos] Allergy Swelling Verified 08/22/20 20:01 "HCL" AdvReac Cough Uncoded 08/22/20 20:01 Physical Exam Vitals: Vital Signs Temp Pulse Pulse Resp BP BP Pulse Ox 08/23/20 08:00 97.4 F L 74 18 103/60 96 08/23/20 04:00 69 18 93/51 99 08/23/20 01:21 81 20 08/22/20 22:35 97.1 F L 78 20 114/70 97 08/22/20 20:47 22 08/22/20 20:45 77 20 120/80 97 08/22/20 20:39 97.7 F 81 18 91/51 96 08/22/20 19:13 78 22 83/54 98 08/22/20 18:48 97.1 F L 83 22 83/51 96 Intake and Output 08/22/20 08/23/20 08/23/20 22:59 06:59 14:59 Intake Total 200 67.833 240 Balance 200 67.833 240 Intake: Intake, IV Titration 67.833 Amount Heparin Sod,Pork in 0.45% 67.833 NaCl 25,000 unit In 0.45 % NaCl 1 250ml.bag @ 8. 288 UNITS/KG/HR 10 mls/hr IV .Q24H [facility] Rx#: [id number] Oral 200 240 Other: # Voids 2 Weight 120.656 kg 124.5 kg Results CBC & Chem 7: 08/22/20 19:10 08/22/20 19:10 Labs: Abnormal Lab Results - Last 24 Hours (Table) 08/22/20 08/22/20 08/22/20 Range/Units 19:10 19:10 19:10 RDW 23.6 H (11.5-15.5) % Plt Count 85 L D (150-450) k/uL Lymphocytes # 0.7 L (1.0-4.8) k/uL INR 1.2 H (<1.2) APTT (22.0-30.0) sec Sodium 135 L (137-145) mmol/L Potassium 3.1 L (3.5-5.1) mmol/L Chloride 95 L (98-107) mmol/L BUN 103 H* (7-17) mg/dL Creatinine 2.01 H (0.52-1.04) mg/dL Glucose 106 H (74-99) mg/dL POC Glucose (mg/dL) (75-99) mg/dL Plasma Lactic Acid U[place] (0.7-2.0) mmol/L Magnesium 2.5 H (1.6-2.3) mg/dL Total Bilirubin 2.5 H (0.2-1.3) mg/dL AST 72 H (14-36) U/L ALT 115 H (4-34) U/L Alkaline Phosphatase 312 H (38-126) U/L Troponin I (0.000-0.034) ng/mL Total Protein 5.9 L (6.3-8.2) g/dL Albumin 2.7 L (3.5-5.0) g/dL 08/22/20 08/22/20 08/22/20 Range/Units 19:10 19:10 22:13 RDW (11.5-15.5) % Plt Count (150-450) k/uL Lymphocytes # (1.0-4.8) k/uL INR (<1.2) APTT (22.0-30.0) sec Sodium (137-145) mmol/L Potassium (3.5-5.1) mmol/L Chloride (98-107) mmol/L BUN (7-17) mg/dL Creatinine (0.52-1.04) mg/dL Glucose (74-99) mg/dL POC Glucose (mg/dL) (75-99) mg/dL Plasma Lactic Acid Ubaldo 3.1 H* (0.7-2.0) mmol/L Magnesium (1.6-2.3) mg/dL Total Bilirubin (0.2-1.3) mg/dL AST (14-36) U/L ALT (4-34) U/L Alkaline Phosphatase (38-126) U/L Troponin I 0.245 H* 0.255 H* (0.000-0.034) ng/mL Total Protein (6.3-8.2) g/dL Albumin (3.5-5.0) g/dL 08/22/20 08/22/20 08/23/20 Range/Units 22:13 22:32 01:41 RDW (11.5-15.5) % Plt Count (150-450) k/uL Lymphocytes # (1.0-4.8) k/uL INR (<1.2) APTT (22.0-30.0) sec Sodium (137-145) mmol/L Potassium (3.5-5.1) mmol/L Chloride (98-107) mmol/L BUN (7-17) mg/dL Creatinine (0.52-1.04) mg/dL Glucose (74-99) mg/dL POC Glucose (mg/dL) 158 H (75-99) mg/dL Plasma Lactic Acid Ubaldo 2.3 H* (0.7-2.0) mmol/L Magnesium (1.6-2.3) mg/dL Total Bilirubin (0.2-1.3) mg/dL AST (14-36) U/L ALT (4-34) U/L Alkaline Phosphatase (38-126) U/L Troponin I 0.272 H* (0.000-0.034) ng/mL Total Protein (6.3-8.2) g/dL Albumin (3.5-5.0) g/dL 08/23/20 08/23/20 08/23/20 Range/Units 01:41 01:41 05:01 RDW (11.5-15.5) % Plt Count (150-450) k/uL Lymphocytes # (1.0-4.8) k/uL INR (<1.2) APTT >200.0 H* (22.0-30.0) sec Sodium (137-145) mmol/L Potassium (3.5-5.1) mmol/L Chloride (98-107) mmol/L BUN (7-17) mg/dL Creatinine (0.52-1.04) mg/dL Glucose (74-99) mg/dL POC Glucose (mg/dL) (75-99) mg/dL Plasma Lactic Acid [place]bal[place] 2.1 H* 3.0 H* (0.7-2.0) mmol/L Magnesium (1.6-2.3) mg/dL Total Bilirubin (0.2-1.3) mg/dL AST (14-36) U/L ALT (4-34) U/L Alkaline Phosphatase (38-126) U/L Troponin I (0.000-0.034) ng/mL Total Protein (6.3-8.2) g/dL Albumin (3.5-5.0) g/dL Thrombosis Risk Factor Assmnt - Choose All That Apply Any of the Below Risk Factors Present?: Yes Each Factor Represents 1 point: Obesity (BMI >25) Other Risk Factors: Yes Each Risk Factor Represents 2 Points: Age 61-74 years Other congenital or acquired thrombophilia - If yes, enter type in comment: No Thrombosis Risk Factor Assessment Total Risk Factor Score: 3 Thrombosis Risk Factor Assessment Level: Moderate Risk
--- NOTE | 2020-08-23 11:52 | P.CONS ---
History of Present Illness - Reason for Consult Consult date: 08/23/20 wound care - History of Present Illness This is a 75-year-old patient being seen by the wound care center on for nonhealing ulcerations to the left medial thigh left lateral thigh and coccyx. Patient has multiple ulcerations that are stage II with granulation seen throughout the wound bed and significant amount of slough. Patient states that the ulcerations have been there since June. In June she was hospitalized with cold that she was then sent to [facility]. Patient does not know what has been placed on the ulcerations prior. At this time she is living with her who is been doing wound care with whatever cream they have available. She's past medical history significant for diabetes, heart failure, atrial fibrillation, osteoarthritis. She is lifelong nonsmoker. Review Of Systems: Constitutional: No fever, no chills, no night sweats. No weight change. No weakness, fatigue or lethargy. No daytime sleepiness. Integumentary:reports wounds, no lesions. No rash or pruritus. No unusual bruising. No change in hair or nails. Physical exam: General Appearance: Alert, cooperative, no distress, appears stated age. Skin: See HPI all other Skin color, texture, tugor normal, no rashes or lesions. Neurologic: Alert oriented x3 Assessment/plan: 1. Nonhealing ulcerations with fat layer exposure to coccyx. Apply triad to the site daily. Turn patient every 2 hours. Avoid incontinence. 2. Nonhealing ulcerations to left lower extremity with fat layer exposure 3. Diabetes mellitus with skin ulcer Thank you for the consultation any questions please contact the wound care center DNP note has been reviewed and discussed with Dr. Pardo and the impression and plan of care has been directed as dictated. Past Medical History Past Medical History: Atrial Fibrillation, Heart Failure, Diabetes Mellitus, Osteoarthritis (OA) Additional Past Medical History / Comment(s): states SOB, back pain-receiving physical therapy., has Lap Band (does not think there is fluid in it), [place], See Cardiology [facility] & P. History of Any Multi-Drug Resistant Organisms: None Reported Past Surgical History: Bariatric Surgery, Hysterectomy, Joint Replacement, Orthopedic Surgery Additional Past Surgical History / Comment(s): katie knee replacements,katie knee arthroscopies,katie ovaries removed,lap band placed x 2-"doesn't think there is fluid is present", cataracts. Past Anesthesia/Blood Transfusion Reactions: Previous Problems w/ Anesthesia, Family History of Problems w/ Anesthesia, Motion Sickness Additional Past Anesthesia/Blood Transfusion Reaction / Comm: states she was alert when I was getting put under and the tube going into my throat and I panicked, trouble waking up with general anesthesia. mother-ponv Past Psychological History: Depression Additional Psychological History / Comment(s): past depression-denies problem now. Smoking Status: Never smoker Past Alcohol Use History: Occasional Past Drug Use History: None Reported Additional Drug Use History / Comment(s): HX OF CBD OIL USE. - Past Family History Mother Additional Family Medical History / Comment(s): breast,bladder,lung Father Family Medical History: No Reported History Medications and Allergies Home Medications Medication Instructions Recorded Confirmed Type sitaGLIPtin [Januvia] 100 mg PO DAILY@0800 10/18/18 08/22/20 History Flecainide [Tambocor] 50 mg PO BID@0800,2100 10/20/19 08/22/20 History Cholecalciferol (Vitamin D3) 125 mcg PO DAILY@1700 07/09/20 08/22/20 History [Vitamin D3 (5000 Iu)] Diclofenac Sodium [Voltaren 2 gm TOPICAL QID PRN 07/09/20 08/22/20 History Arthritis Pain 1% Gel] Pantoprazole Sodium [Protonix] 40 mg PO BID@0800,1700 07/09/20 08/22/20 History Albuterol Inhaler [Ventolin Hfa 2 puff INHALATION RT-Q6H PRN 07/16/20 08/22/20 History Inhaler] Acetaminophen-Codeine 300-30mg 1 tab PO Q6H PRN #12 tab 08/12/20 08/22/20 Rx [Tylenol w/codeine #3] Cholestyramine (with Sugar) 4 gm PO BID@1000,1800 packet 08/12/20 08/22/20 Rx [Questran Packet] Melatonin 6 mg PO HS tablet 08/12/20 08/22/20 Rx Apixaban [Eliquis] 2.5 mg PO BID@0800,1700 08/22/20 08/22/20 History Ascorbic Acid [Vitamin C] 1,000 mg PO DAILY@1700 08/22/20 08/22/20 History Benzonatate [Tessalon Perles] 100 mg PO TID@0800,1200,1700 08/22/20 08/22/20 History Bumetanide [Bumex] 1 mg PO BID@0800,1700 08/22/20 08/22/20 History Insulin Aspart [NovoLOG Flexpen] 3 units SQ DAILY@0700 08/22/20 08/22/20 History Insulin Aspart [NovoLOG Flexpen] 6 units SQ AC-BID@1100,1630 08/22/20 08/22/20 History Insulin Aspart [NovoLOG Flexpen] See Protocol SQ ACHS 08/22/20 08/22/20 History Insulin Glargine,Hum.rec.anlog 40 unit SQ HS@2130 08/22/20 08/22/20 History [Lantus Solostar] Magic Butt Paste 1 applic TOPICAL DAILY PRN 08/22/20 08/22/20 History Magic Butt Paste 1 applic TOPICAL TID 08/22/20 08/22/20 History Magnesium Hydroxide [Milk of 7,200 mg PO Q48H PRN 08/22/20 08/22/20 History Magnesia Concentrate] Metoprolol Tartrate [Lopressor] 12.5 mg PO DAILY@0800 08/22/20 08/22/20 History Na Phos,M-B/Na Phos,Di-Ba [Fleet 133 ml RECTAL DAILY PRN 08/22/20 08/22/20 History Adult] Oxymetazoline 0.05% Nasl [place] 2 spray EA NOSTRIL BID@0800,1700 08/22/20 08/22/20 History [Afrin 0.05% Nasal [place]] Potassium Chloride ER [K-Dur 20] 40 meq PO DAILY@1700 08/22/20 08/22/20 History SILVER sulfADIAZINE CREAM 1 applic TOPICAL BID 08/22/20 08/22/20 History [Silvadene Cream] Zinc Sulfate [Orazinc] 220 mg PO DAILY@1700 08/22/20 08/22/20 History bisacodyL [Bisacodyl] 10 mg RECTAL DAILY PRN 08/22/20 08/22/20 History metOLazone [Zaroxolyn] 5 mg PO DAILY@0600 08/22/20 08/22/20 History Allergies Allergy/AdvReac Type Severity Reaction Status Date / Time adhesive tape Allergy tears skin Verified 08/22/20 20:01 ciprofloxacin [From Cipro] Allergy Rash/Hives Verified 08/22/20 20:01 doxycycline Allergy Rash/Hives Verified 08/22/20 20:01 hydrochlorothiazide Allergy Unknown Verified 08/22/20 20:01 pioglitazone [From Actos] Allergy Swelling Verified 08/22/20 20:01 "HCL" AdvReac Cough Uncoded 08/22/20 20:01 Physical Exam Vitals: Vital Signs Temp Pulse Pulse Resp BP BP Pulse Ox 08/23/20 08:00 97.4 F L 74 18 103/60 96 08/23/20 04:00 69 18 93/51 99 08/23/20 01:21 81 20 08/22/20 22:35 97.1 F L 78 20 114/70 97 08/22/20 20:47 22 08/22/20 20:45 77 20 120/80 97 08/22/20 20:39 97.7 F 81 18 91/51 96 08/22/20 19:13 78 22 83/54 98 08/22/20 18:48 97.1 F L 83 22 83/51 96 Intake and Output 08/22/20 08/23/20 08/23/20 22:59 06:59 14:59 Intake Total 200 67.833 284.341 Balance 200 67.833 284.341 Intake: Intake, IV Titration 67.833 44.341 Amount Heparin Sod,Pork in 0.45% 67.833 44.341 NaCl 25,000 unit In 0.45 % NaCl 1 250ml.bag @ 8. 288 UNITS/KG/HR 10 mls/hr IV .Q24H [facility] Rx#: [id number] Oral 200 240 Other: # Voids 2 Weight 120.656 kg 124.5 kg 124.5 kg Results CBC & Chem 7: 08/22/20 19:10 08/22/20 19:10 Labs: Abnormal Lab Results - Last 24 Hours (Table) 08/22/20 08/22/20 08/22/20 Range/Units 19:10 19:10 19:10 RDW 23.6 H (11.5-15.5) % Plt Count 85 L D (150-450) k/uL Lymphocytes # 0.7 L (1.0-4.8) k/uL INR 1.2 H (<1.2) APTT (22.0-30.0) sec D-Dimer (<0.60) mg/L FEU Sodium 135 L (137-145) mmol/L Potassium 3.1 L (3.5-5.1) mmol/L Chloride 95 L (98-107) mmol/L BUN 103 H* (7-17) mg/dL Creatinine 2.01 H (0.52-1.04) mg/dL Glucose 106 H (74-99) mg/dL POC Glucose (mg/dL) (75-99) mg/dL Plasma Lactic Acid [place] (0.7-2.0) mmol/L Magnesium 2.5 H (1.6-2.3) mg/dL Total Bilirubin 2.5 H (0.2-1.3) mg/dL AST 72 H (14-36) U/L ALT 115 H (4-34) U/L Alkaline Phosphatase 312 H (38-126) U/L Troponin I (0.000-0.034) ng/mL Total Protein 5.9 L (6.3-8.2) g/dL Albumin 2.7 L (3.5-5.0) g/dL 08/22/20 08/22/20 08/22/20 Range/Units 19:10 19:10 22:13 RDW (11.5-15.5) % Plt Count (150-450) k/uL Lymphocytes # (1.0-4.8) k/uL INR (<1.2) APTT (22.0-30.0) sec D-Dimer (<0.60) mg/L FEU Sodium (137-145) mmol/L Potassium (3.5-5.1) mmol/L Chloride (98-107) mmol/L BUN (7-17) mg/dL Creatinine (0.52-1.04) mg/dL Glucose (74-99) mg/dL POC Glucose (mg/dL) (75-99) mg/dL Plasma Lactic Acid Ubaldo 3.1 H* (0.7-2.0) mmol/L Magnesium (1.6-2.3) mg/dL Total Bilirubin (0.2-1.3) mg/dL AST (14-36) U/L ALT (4-34) U/L Alkaline Phosphatase (38-126) U/L Troponin I 0.245 H* 0.255 H* (0.000-0.034) ng/mL Total Protein (6.3-8.2) g/dL Albumin (3.5-5.0) g/dL 08/22/20 08/22/20 08/23/20 Range/Units 22:13 22:32 01:41 RDW (11.5-15.5) % Plt Count (150-450) k/uL Lymphocytes # (1.0-4.8) k/uL INR (<1.2) APTT (22.0-30.0) sec D-Dimer (<0.60) mg/L FEU Sodium (137-145) mmol/L Potassium (3.5-5.1) mmol/L Chloride (98-107) mmol/L BUN (7-17) mg/dL Creatinine (0.52-1.04) mg/dL Glucose (74-99) mg/dL POC Glucose (mg/dL) 158 H (75-99) mg/dL Plasma Lactic Acid Ubal[place] 2.3 H* (0.7-2.0) mmol/L Magnesium (1.6-2.3) mg/dL Total Bilirubin (0.2-1.3) mg/dL AST (14-36) U/L ALT (4-34) U/L Alkaline Phosphatase (38-126) U/L Troponin I 0.272 H* (0.000-0.034) ng/mL Total Protein (6.3-8.2) g/dL Albumin (3.5-5.0) g/dL 08/23/20 08/23/20 08/23/20 Range/Units 01:41 01:41 05:01 RDW (11.5-15.5) % Plt Count (150-450) k/uL Lymphocytes # (1.0-4.8) k/uL INR (<1.2) APTT >200.0 H* (22.0-30.0) sec D-Dimer (<0.60) mg/L FEU Sodium (137-145) mmol/L Potassium (3.5-5.1) mmol/L Chloride (98-107) mmol/L BUN (7-17) mg/dL Creatinine (0.52-1.04) mg/dL Glucose (74-99) mg/dL POC Glucose (mg/dL) (75-99) mg/dL Plasma Lactic Acid [place] 2.1 H* 3.0 H* (0.7-2.0) mmol/L Magnesium (1.6-2.3) mg/dL Total Bilirubin (0.2-1.3) mg/dL AST (14-36) U/L ALT (4-34) U/L Alkaline Phosphatase (38-126) U/L Troponin I (0.000-0.034) ng/mL Total Protein (6.3-8.2) g/dL Albumin (3.5-5.0) g/dL 08/23/20 08/23/20 Range/Units 09:33 09:33 RDW (11.5-15.5) % Plt Count (150-450) k/uL Lymphocytes # (1.0-4.8) k/uL INR (<1.2) APTT 76.0 H (22.0-30.0) sec D-Dimer 5.46 H (<0.60) mg/L FEU Sodium (137-145) mmol/L Potassium (3.5-5.1) mmol/L Chloride (98-107) mmol/L BUN (7-17) mg/dL Creatinine (0.52-1.04) mg/dL Glucose (74-99) mg/dL POC Glucose (mg/dL) (75-99) mg/dL Plasma Lactic Acid [place] 2.5 H* (0.7-2.0) mmol/L Magnesium (1.6-2.3) mg/dL Total Bilirubin (0.2-1.3) mg/dL AST (14-36) U/L ALT (4-34) U/L Alkaline Phosphatase (38-126) U/L Troponin I (0.000-0.034) ng/mL Total Protein (6.3-8.2) g/dL Albumin (3.5-5.0) g/dL
--- NOTE | 2020-08-23 12:10 | P.CRDCN ---
History of Present Illness Consult date: 08/23/20 History of present illness: HISTORY OF PRESENT ILLNESS: This is a 75-year-old female with a past medical history significant for diabetes mellitus, osteoarthritis, congestive heart failure, atrial fibrillation, and morbid obesity. Patient follows in the office with Dr. Valdes. We have been asked to see the patient in consultation for abnormal troponins. Patient examined at the bedside. Patient currently resides at [facility]. She reports being diagnosed with a DVT in the right lower extremity yesterday. She states she has been feeling short of breath for about 3 weeks. Patient was diagnosed with Covid on 07/16/2020. Patient denies any chest pain or pressure. EKG reveals atrial fibrillation with controlled ventricular rate Laboratory data: WBC 5.0. Hemoglobin 13.0. Platelet count 85. Sodium 135. Potassium 3.1. BUN 103. Creatinine 2.01. BNP 2000. Troponin 0.245. 0.255. 0.272. Current home cardiac medications include Zaroxolyn 5 mg daily, metoprolol tartrate 12.5 mg daily, flecainide 50 mg twice a day, Bumex 1 mg twice a day, Eliquis 2.5 mg twice a day Most recent echocardiogram obtained in July 2020 revealed ejection fraction 50-55% with mild aortic stenosis According to office records, patient had a Lexiscan stress test in June 2019 which was negative for ischemia REVIEW OF SYSTEMS: At the time of my exam: CONSTITUTIONAL: Denies fever or chills. HEENT: Denies blurred vision, vision changes, or eye pain. Denies hemoptysis CARDIOVASCULAR: Denies chest pain. Denies orthopnea. Denies PND. Denies palpitations RESPIRATORY: Reports shortness of breath. GASTROINTESTINAL: Denies abdominal pain. Denies nausea or vomiting. HEMATOLOGIC: Denies bleeding disorders. GENITOURINARY: Denies any blood in urine. SKIN: Denies pruitis. Denies rash. PHYSICAL EXAM: VITAL SIGNS: Reviewed. GENERAL: Well-developed in no acute distress. HEENT: Head is normocephalic. Pupils are equal, round. Sclerae anicteric. Mucous membranes of the mouth are moist. Neck supple. No JVD or thyromegaly LUNGS: Respirations even and unlabored. Lungs diminished bilaterally. HEART: Irregular rate and rhythm. S1 and S2 heard. Systolic murmur noted. ABDOMEN: Soft. Nondistended. Nontender. EXTREMITIES: Normal range of motion. No clubbing or cyanosis. Peripheral pulses intact. Bilateral lower extremity edema with erythema noted to right lower extremity. NEUROLOGIC: Awake and alert. Oriented x 3. ASSESSMENT: Acute DVT of right lower extremity Shortness of breath 3 weeks, with recent Covid 19 infection, rule out PE Paroxysmal atrial fibrillation, on anticoagulation with Eliquis Mild aortic stenosis Chronic diastolic heart failure, ejection fraction 50-55%, currently euvolemic Abnormal troponins, no evidence of acute coronary syndrome Elevated lactic acid Acute kidney injury PLAN: Obtain 2-D echo to assess cardiac structure and function Obtain chest x-ray Obtain d-dimer Repeat Covid testing Resume home cardiac medications Diuretics on hold secondary to acute kidney injury Patient currently on IV heparin. Transition to Eliquis when okay with pulmonary Further recommendations pending patient's course Nurse practitioner note has been reviewed by physician. Signing provider agrees with the documented findings, assessment, and plan of care. Past Medical History Past Medical History: Atrial Fibrillation, Heart Failure, Diabetes Mellitus, Osteoarthritis (OA) Additional Past Medical History / Comment(s): states SOB, back pain-receiving physical therapy., has Lap Band (does not think there is fluid in it), [place], See Cardiology [facility]. History of Any Multi-Drug Resistant Organisms: None Reported Past Surgical History: Bariatric Surgery, Hysterectomy, Joint Replacement, Orth opedic Surgery Additional Past Surgical History / Comment(s): katie knee replacements,katie knee arthroscopies,katie ovaries removed,lap band placed x 2-"doesn't think there is fluid is present", cataracts. Past Anesthesia/Blood Transfusion Reactions: Previous Problems w/ Anesthesia, Family History of Problems w/ Anesthesia, Motion Sickness Additional Past Anesthesia/Blood Transfusion Reaction / Comment(s): states she was alert when I was getting put under and the tube going into my throat and I panicked, trouble waking up with general anesthesia. mother-ponv Past Psychological History: Depression Additional Psychological History / Comment(s): past depression-denies problem now. Smoking Status: Never smoker Past Alcohol Use History: Occasional Past Drug Use History: None Reported Additional Drug Use History / Comment(s): HX OF CBD OIL USE. - Past Family History Mother Additional Family Medical History / Comment(s): breast,bladder,lung Father Family Medical History: No Reported History Medications and Allergies Home Medications Medication Instructions Recorded Confirmed Type sitaGLIPtin [Januvia] 100 mg PO DAILY@0800 10/18/18 08/22/20 History Flecainide [Tambocor] 50 mg PO BID@0800,2100 10/20/19 08/22/20 History Cholecalciferol (Vitamin D3) 125 mcg PO DAILY@1700 07/09/20 08/22/20 History [Vitamin D3 (5000 Iu)] Diclofenac Sodium [Voltaren 2 gm TOPICAL QID PRN 07/09/20 08/22/20 History Arthritis Pain 1% Gel] Pantoprazole Sodium [Protonix] 40 mg PO BID@0800,1700 07/09/20 08/22/20 History Albuterol Inhaler [Ventolin Hfa 2 puff INHALATION RT-Q6H PRN 07/16/20 08/22/20 History Inhaler] Acetaminophen-Codeine 300-30mg 1 tab PO Q6H PRN #12 tab 08/12/20 08/22/20 Rx [Tylenol w/codeine #3] Cholestyramine (with Sugar) 4 gm PO BID@1000,1800 packet 08/12/20 08/22/20 Rx [Questran Packet] Melatonin 6 mg PO HS tablet 08/12/20 08/22/20 Rx Apixaban [Eliquis] 2.5 mg PO BID@0800,1700 08/22/20 08/22/20 History Ascorbic Acid [Vitamin C] 1,000 mg PO DAILY@1700 08/22/20 08/22/20 History Benzonatate [Tessalon Perles] 100 mg PO TID@0800,1200,1700 08/22/20 08/22/20 History Bumetanide [Bumex] 1 mg PO BID@0800,1700 08/22/20 08/22/20 History Insulin Aspart [NovoLOG Flexpen] 3 units SQ DAILY@0700 08/22/20 08/22/20 History Insulin Aspart [NovoLOG Flexpen] 6 units SQ AC-BID@1100,1630 08/22/20 08/22/20 History Insulin Aspart [NovoLOG Flexpen] See Protocol SQ ACHS 08/22/20 08/22/20 History Insulin Glargine,Hum.rec.anlog 40 unit SQ HS@2130 08/22/20 08/22/20 History [Lantus Solostar] Magic Butt Paste 1 applic TOPICAL DAILY PRN 08/22/20 08/22/20 History Magic Butt Paste 1 applic TOPICAL TID 08/22/20 08/22/20 History Magnesium Hydroxide [Milk of 7,200 mg PO Q48H PRN 08/22/20 08/22/20 History Magnesia Concentrate] Metoprolol Tartrate [Lopressor] 12.5 mg PO DAILY@0800 08/22/20 08/22/20 History Na Phos,M-B/Na Phos,Di-Ba [Fleet 133 ml RECTAL DAILY PRN 08/22/20 08/22/20 History Adult] Oxymetazoline 0.05% Nasl [place] 2 spray EA NOSTRIL BID@0800,1700 08/22/20 08/22/20 History [Afrin 0.05% Nasal [place]] Potassium Chloride ER [K-Dur 20] 40 meq PO DAILY@1700 08/22/20 08/22/20 History SILVER sulfADIAZINE CREAM 1 applic TOPICAL BID 08/22/20 08/22/20 History [Silvadene Cream] Zinc Sulfate [Orazinc] 220 mg PO DAILY@1700 08/22/20 08/22/20 History bisacodyL [Bisacodyl] 10 mg RECTAL DAILY PRN 08/22/20 08/22/20 History metOLazone [Zaroxolyn] 5 mg PO DAILY@0600 08/22/20 08/22/20 History Allergies Allergy/AdvReac Type Severity Reaction Status Date / Time adhesive tape Allergy tears skin Verified 08/22/20 20:01 ciprofloxacin [From Cipro] Allergy Rash/Hives Verified 08/22/20 20:01 doxycycline Allergy Rash/Hives Verified 08/22/20 20:01 hydrochlorothiazide Allergy Unknown Verified 08/22/20 20:01 pioglitazone [From Actos] Allergy Swelling Verified 08/22/20 20:01 "HCL" AdvReac Cough Uncoded 08/22/20 20:01 Physical Exam Vitals: Vital Signs Temp Pulse Pulse Resp BP BP Pulse Ox 08/23/20 08:00 97.4 F L 74 18 103/60 96 08/23/20 04:00 69 18 93/51 99 08/23/20 01:21 81 20 08/22/20 22:35 97.1 F L 78 20 114/70 97 08/22/20 20:47 22 08/22/20 20:45 77 20 120/80 97 08/22/20 20:39 97.7 F 81 18 91/51 96 08/22/20 19:13 78 22 83/54 98 08/22/20 18:48 97.1 F L 83 22 83/51 96 Intake and Output 08/22/20 08/23/20 08/23/20 22:59 06:59 14:59 Intake Total 200 67.833 284.341 Balance 200 67.833 284.341 Intake: Intake, IV Titration 67.833 44.341 Amount Heparin Sod,Pork in 0.45% 67.833 44.341 NaCl 25,000 unit In 0.45 % NaCl 1 250ml.bag @ 8. 288 UNITS/KG/HR 10 mls/hr IV .Q24H [facility] Rx#: [id number] Oral 200 240 Other: # Voids 2 Weight 120.656 kg 124.5 kg 124.5 kg Results 08/22/20 19:10 08/22/20 19:10 Cardiac Enzymes 08/22/20 08/22/20 08/22/20 Range/Units 19:10 19:10 22:13 AST 72 H (14-36) U/L Troponin I 0.245 H* 0.255 H* (0.000-0.034) ng/mL 08/23/20 Range/Units 01:41 AST (14-36) U/L Troponin I 0.272 H* (0.000-0.034) ng/mL Coagulation 08/22/20 08/23/20 08/23/20 Range/Units 19:10 01:41 09:33 PT 12.0 (9.0-12.0) sec APTT 26.7 >200.0 H* 76.0 H (22.0-30.0) sec CBC 08/22/20 Range/Units 19:10 WBC 5.0 (3.8-10.6) k/uL RBC 5.18 (3.80-5.40) m/uL Hgb 13.0 (11.4-16.0) gm/dL Hct 41.5 (34.0-46.0) % Plt Count 85 L D (150-450) k/uL Comprehensive Metabolic Panel 08/22/20 Range/Units 19:10 Sodium 135 L (137-145) mmol/L Potassium 3.1 L (3.5-5.1) mmol/L Chloride 95 L (98-107) mmol/L Carbon Dioxide 29 (22-30) mmol/L BUN 103 H* (7-17) mg/dL Creatinine 2.01 H (0.52-1.04) mg/dL Glucose 106 H (74-99) mg/dL Calcium 8.6 (8.4-10.2) mg/dL AST 72 H (14-36) U/L ALT 115 H (4-34) U/L Alkaline Phosphatase 312 H (38-126) U/L Total Protein 5.9 L (6.3-8.2) g/dL Albumin 2.7 L (3.5-5.0) g/dL Current Medications Generic Name Dose Route Start Last Admin Trade Name Freq PRN Reason Stop Dose Admin Acetaminophen/Codeine Phosphate 1 each 08/23/20 11:44 Acetaminophen-Codeine 300-30mg Tab PO Q6H PRN Pain Hydrocodone Bitart/Acetaminophen 1 each 08/22/20 19:41 08/23/20 06:54 Hydrocodone/Apap 5-325mg 1 Each Tab PO 1 each Q4HR PRN Administration Moderate Pain Al Hydroxide/Mg Hydroxide 15 ml 08/22/20 19:41 Mag Hydrox/Al Hydrox/Simeth 30 Ml Cup PO Q6HR PRN Indigestion Albuterol Sulfate 2 puff 08/22/20 19:43 Albuterol Hfa Inhaler INHALATION RT-Q6H PRN Shortness Of Breath Benzonatate 100 mg 08/22/20 22:00 08/23/20 08:43 Benzonatate 100 Mg Cap PO 100 mg TID CASIMIRO Administration Cholecalciferol 125 mcg 08/23/20 09:00 08/23/20 08:43 Cholecalciferol 25 Mcg (1000 Iu) Tablet PO 125 mcg DAILY CASIMIRO Administration Cholestyramine Resin 4 gm 08/23/20 10:00 08/23/20 08:44 Cholestyramine (With Sugar) 4 Gm Packet PO 4 gm BID@1000,1800 CASIMIRO Administration Diclofenac Sodium 2 gm 08/23/20 11:44 Diclofenac Sodium Gel 100 Gm Tube TOPICAL QID PRN Pain Flecainide Acetate 50 mg 08/22/20 21:00 08/23/20 08:43 Flecainide 50 Mg Tab PO 50 mg Q12HR [facility] Administration Heparin Sodium/Sodium Chloride 250 mls @ 10 mls/hr 08/22/20 19:45 08/23/20 10:58 25,000 unit/ Sodium Chloride IV 3.288 units/kg/hr .Q24H [facility] 3.967 mls/hr Titration Protocol 8.288 UNITS/KG/HR Sodium Chloride 1,000 mls @ 50 mls/hr 08/23/20 10:30 Saline 0.9% IV .Q20H [facility] Insulin Aspart 3 unit 08/23/20 07:30 08/23/20 07:51 Insulin Aspart (Novolog) 100 Unit/Ml Vial SQ Not Given [id number] [facility] Insulin Aspart 0 unit 08/22/20 21:00 08/23/20 07:50 Insulin Aspart (Novolog) 100 Unit/Ml Vial SQ Not Given ACHS [facility] Protocol Insulin Detemir 40 unit 08/23/20 07:00 Insulin Detemir (Levemir) 100 Unit/Ml Syr SQ DAILY@0700 [facility] Linagliptin 5 mg 08/22/20 21:00 08/22/20 23:19 Linagliptin 5 Mg Tablet PO 5 mg HS [facility] Administration Melatonin 6 mg 08/23/20 21:00 Melatonin 3 Mg Tablet PO HS [facility] Metoprolol Tartrate 12.5 mg 08/23/20 09:00 08/23/20 08:43 Metoprolol Tartrate 12.5 Mg Tab PO 12.5 mg DAILY [facility] Administration Multi-Ingred Cream/Lotion/Oil/Oint 1 applic 08/23/20 12:00 Hydrophilic Cream 180 Gm Tube TOPICAL DAILY [facility] Naloxone HCl 0.2 mg 08/22/20 19:41 Naloxone 0.4 Mg/Ml 1 Ml Vial IV Q2M PRN Opioid Reversal Ondansetron HCl 4 mg 08/22/20 19:41 Ondansetron 4 Mg/2 Ml Vial IVP Q8HR PRN Nausea And Vomiting Oxymetazoline HCl 2 spray 08/22/20 21:00 08/23/20 08:44 Oxymetazoline 0.05% Nasl Eldred 1 Eldred Bottle NASAL Not Given BID [facility] Pantoprazole Sodium 40 mg 08/23/20 17:00 Pantoprazole 40 Mg Tablet PO BID@0800,1700 [facility] Temazepam 15 mg 08/22/20 19:41 Temazepam 15 Mg Cap PO HS PRN Insomnia Tramadol HCl 50 mg 08/22/20 19:41 Tramadol 50 Mg Tab PO Q6H PRN Moderate Pain Zinc Sulfate 220 mg 08/23/20 09:00 08/23/20 08:43 Zinc Sulfate 220 Mg Cap PO 220 mg DAILY CASIMIRO Administration Intake and Output 08/22/20 08/23/20 08/23/20 22:59 06:59 14:59 Intake Total 200 67.833 284.341 Balance 200 67.833 284.341 Intake: Intake, IV Titration 67.833 44.341 Amount Heparin Sod,Pork in 0.45% 67.833 44.341 NaCl 25,000 unit In 0.45 % NaCl 1 250ml.bag @ 8. 288 UNITS/KG/HR 10 mls/hr IV .Q24H [facility] Rx#: [id number] Oral 200 240 Other: # Voids 2 Weight 120.656 kg 124.5 kg 124.5 kg Patient Weight 08/24/20 06:59 Weight 124.5 kg 08/22/20 19:10 08/22/20 19:10
[2020-08-23 12:15] LABS: Glucose,Whole Blood 160 mg/dL (75-99)
[2020-08-23] MEDS: SODIUM CHLORIDE 0.9% 1,000 ML IV SCH (12:15)
[2020-08-23] MEDS: INSULIN DETEMIR (LEVEMIR) 100 UNIT/ML SYR SQ SCH (12:46)
[2020-08-23 13:43] LABS: Appearance,Urine Clear (Clear); Bacteria,Urine Occasional /hpf; Bilirubin,Urine Negative (Negative); Blood,Urine Negative (Negative); Color,Urine Yellow; Glucose,Urine (UA) Negative (Negative); Hyaline Casts,Urine 90 /lpf (0-2); Ketones,Urine Negative (Negative); Leukocyte Esterase,Urine Moderate (Negative); Mucus,Urine Rare /hpf; Nitrite,Urine Negative (Negative); Protein,Urine Negative (Negative); RBC,Urine 7 /hpf (0-5); Squamous Epithelial Cell,Urine 1 /hpf (0-4); Urobilinogen,Urine <2.0 mg/dL (<2.0); WBC,Urine 20 /hpf (0-5)
--- NOTE | 2020-08-23 14:01 | P.CNPUL ---
History of Present Illness Consult date: 08/23/20 Requesting physician: Candace Bazan Reason for consult: dyspnea Chief complaint: Dyspnea History of present illness: 75-year-old white female patient of Dr. Bazan with recent history of hospital ization from 07/16/2020 through 08/13/2020 after having prolonged hospitalization with COVID 19 pneumonia. Patient had a long hospital course, required high flow oxygen, and was weaned down to 3 L of oxygen on the day of discharge on 08/13/2020 and was discharged to [facility] and rehab in sta ble condition. Patient has history of COPD, paroxysmal A. fib on Eliquis at 2.5 mg twice a day adjusted for her impaired renal function, type 2 diabetes mellitus, chronic diastolic CHF, history of peptic ulcer disease with prior episode of acute GI bleeding, anemia of chronic disease, morbid obesity status post lap band surgery. Patient was to the hospital yesterday on 08/22/2020 from the intermediate after being diagnosed with a DVT in the right leg. The right leg is red and painful, however not any more swollen than the left leg and patient does have some chronic lower extremity swelling and venous stasis. Patient was also complaining of some shortness of breath, not feeling well, but no fever or chills. No nausea vomiting or diarrhea, no chest pain. Note that she was on Eliquis 2.5 mg at the intermediate. FiO2 requirement was the same, her pulse ox is 99% on 3 L, she thinks she may have had anxiety attack. No cough or phlegm production no chest pain. Her EKG reveals A. fib with controlled rate. Her labs have been reviewed, showing white blood cell count 4.8, hemoglobin of 12, sodium is 140, potassium 3.0, CO2 is 29, BUN of 106, creatinine is 2, LFTs are elevated, with AST at 56, ALT of 117, ALT is 326, she did have troponin elevation of 0.245, 0.255, and 0.272, proBNP was 2000, and she did have some mild lactic acid elevation. In view of new diagnosis of right ext remity DVT and the concern for possibility of underlying pulmonary embolism despite the chronic anticoagulation patient was placed on heparin infusion. She is breathing comfortably today, she denies any chest pain, chest x-ray is pending today, her kidney function is impaired, and creatinine is up to 2.01 today. VQ scan is pending, and we were asked to see in consultation for shortness of breath Review of Systems All systems: negative Constitutional: Denies chills, Denies fever Eyes: denies blurred vision, denies pain Ears, nose, mouth and throat: Denies headache, Denies sore throat Cardiovascular: Denies chest pain, Denies shortness of breath Respiratory: Reports dyspnea, Denies cough Gastrointestinal: Denies abdominal pain, Denies diarrhea, Denies nausea, Denies vomiting Genitourinary: Denies dysuria, Denies hematuria Musculoskeletal: Denies myalgias Musculoskeletal: right: ankle swelling Integumentary: Denies pruritus, Denies rash Neurological: Denies numbness, Denies weakness Psychiatric: Denies anxiety, Denies depression Endocrine: Denies fatigue, Denies weight change Past Medical History Past Medical History: Atrial Fibrillation, Heart Failure, Diabetes Mellitus, Osteoarthritis (OA) Additional Past Medical History / Comment(s): states SOB, back pain-receiving physical therapy., has Lap Band (does not think there is fluid in it), [place], See [facility] History of Any Multi-Drug Resistant Organisms: None Reported Past Surgical History: Bariatric Surgery, Hysterectomy, Joint Replacement, Orthopedic Surgery Additional Past Surgical History / Comment(s): katie knee replacements,katie knee arthroscopies,katie ovaries removed,lap band placed x 2-"doesn't think there is fluid is present", cataracts. Past Anesthesia/Blood Transfusion Reactions: Previous Problems w/ Anesthesia, Family History of Problems w/ Anesthesia, Motion Sickness Additional Past Anesthesia/Blood Transfusion Reaction / Comment(s): states she was alert when I was getting put under and the tube going into my throat and I panicked, trouble waking up with general anesthesia. mother-ponv Past Psychological History: Depression Additional Psychological History / Comment(s): past depression-denies problem now. Smoking Status: Never smoker Past Alcohol Use History: Occasional Past Drug Use History: None Reported Additional Drug Use History / Comment(s): HX OF CBD OIL USE. - Past Family History Mother Additional Family Medical History / Comment(s): breast,bladder,lung Father Family Medical History: No Reported History Medications and Allergies Home Medications Medication Instructions Recorded Confirmed Type sitaGLIPtin [Januvia] 100 mg PO DAILY@0800 10/18/18 08/22/20 History Flecainide [Tambocor] 50 mg PO BID@0800,2100 10/20/19 08/22/20 History Cholecalciferol (Vitamin D3) 125 mcg PO DAILY@1700 07/09/20 08/22/20 History [Vitamin D3 (5000 Iu)] Diclofenac Sodium [Voltaren 2 gm TOPICAL QID PRN 07/09/20 08/22/20 History Arthritis Pain 1% Gel] Pantoprazole Sodium [Protonix] 40 mg PO BID@0800,1700 07/09/20 08/22/20 History Albuterol Inhaler [Ventolin Hfa 2 puff INHALATION RT-Q6H PRN 07/16/20 08/22/20 History Inhaler] Acetaminophen-Codeine 300-30mg 1 tab PO Q6H PRN #12 tab 08/12/20 08/22/20 Rx [Tylenol w/codeine #3] Cholestyramine (with Sugar) 4 gm PO BID@1000,1800 packet 08/12/20 08/22/20 Rx [Questran Packet] Melatonin 6 mg PO HS tablet 08/12/20 08/22/20 Rx Apixaban [Eliquis] 2.5 mg PO BID@0800,1700 08/22/20 08/22/20 History Ascorbic Acid [Vitamin C] 1,000 mg PO DAILY@1700 08/22/20 08/22/20 History Benzonatate [Tessalon Perles] 100 mg PO TID@0800,1200,1700 08/22/20 08/22/20 History Bumetanide [Bumex] 1 mg PO BID@0800,1700 08/22/20 08/22/20 History Insulin Aspart [NovoLOG Flexpen] 3 units SQ DAILY@0700 08/22/20 08/22/20 History Insulin Aspart [NovoLOG Flexpen] 6 units SQ AC-BID@1100,1630 08/22/20 08/22/20 History Insulin Aspart [NovoLOG Flexpen] See Protocol SQ ACHS 08/22/20 08/22/20 History Insulin Glargine,Hum.rec.anlog 40 unit SQ HS@2130 08/22/20 08/22/20 History [Lantus Solostar] Magic Butt Paste 1 applic TOPICAL DAILY PRN 08/22/20 08/22/20 History Magic Butt Paste 1 applic TOPICAL TID 08/22/20 08/22/20 History Magnesium Hydroxide [Milk of 7,200 mg PO Q48H PRN 08/22/20 08/22/20 History Magnesia Concentrate] Metoprolol Tartrate [Lopressor] 12.5 mg PO DAILY@0800 08/22/20 08/22/20 History Na Phos,M-B/Na Phos,Di-Ba [Fleet 133 ml RECTAL DAILY PRN 08/22/20 08/22/20 History Adult] Oxymetazoline 0.05% Nasl [place] 2 spray EA NOSTRIL BID@0800,1700 08/22/20 08/22/20 History [Afrin 0.05% Nasal [place]] Potassium Chloride ER [K-Dur 20] 40 meq PO DAILY@1700 08/22/20 08/22/20 History SILVER sulfADIAZINE CREAM 1 applic TOPICAL BID 08/22/20 08/22/20 History [Silvadene Cream] Zinc Sulfate [Orazinc] 220 mg PO DAILY@1700 08/22/20 08/22/20 History bisacodyL [Bisacodyl] 10 mg RECTAL DAILY PRN 08/22/20 08/22/20 History metOLazone [Zaroxolyn] 5 mg PO DAILY@0600 08/22/20 08/22/20 History Allergies Allergy/AdvReac Type Severity Reaction Status Date / Time adhesive tape Allergy tears skin Verified 08/22/20 20:01 ciprofloxacin [From Cipro] Allergy Rash/Hives Verified 08/22/20 20:01 doxycycline Allergy Rash/Hives Verified 08/22/20 20:01 hydrochlorothiazide Allergy Unknown Verified 08/22/20 20:01 pioglitazone [From Actos] Allergy Swelling Verified 08/22/20 20:01 "HCL" AdvReac Cough Uncoded 08/22/20 20:01 Physical Exam Vitals: Vital Signs Temp Pulse Pulse Resp BP BP Pulse Ox 08/23/20 08:00 97.4 F L 74 18 103/60 96 08/23/20 04:00 69 18 93/51 99 08/23/20 01:21 81 20 08/22/20 22:35 97.1 F L 78 20 114/70 97 08/22/20 20:47 22 08/22/20 20:45 77 20 120/80 97 08/22/20 20:39 97.7 F 81 18 91/51 96 08/22/20 19:13 78 22 83/54 98 08/22/20 18:48 97.1 F L 83 22 83/51 96 Intake and Output 08/22/20 08/23/20 08/23/20 22:59 06:59 14:59 Intake Total 200 67.833 284.341 Output Total 1550 Balance 200 67.833 -1265.659 Intake: Intake, IV Titration 67.833 44.341 Amount Heparin Sod,Pork in 0.45% 67.833 44.341 NaCl 25,000 unit In 0.45 % NaCl 1 250ml.bag @ 8. 288 UNITS/KG/HR 10 mls/hr IV .Q24H [facility] Rx#: [id number] Oral 200 240 Output: Urine 1550 Uretheral (Knight) 1550 Other: # Voids 2 Weight 120.656 kg 124.5 kg 124.5 kg GENERAL EXAM: Alert, very pleasant, 75-year-old white female, on 3 L of oxygen the pulse ox 96-99% comfortable in no apparent distress. HEAD: Normocephalic/atraumatic. EYES: Normal reaction of pupils, equal size. Conjunctiva pink, sclera white. NOSE: Clear with pink turbinates. THROAT: No erythema or exudates. NECK: No masses, no JVD, no thyroid enlargement, no adenopathy. CHEST: No chest wall deformity. Symmetrical expansion. LUNGS: Equal air entry with no crackles, wheeze, rhonchi or dullness. CVS: Regular rate and rhythm, normal S1 and S2, no gallops, no murmurs, no rubs ABDOMEN: Soft, nontender. No hepatosplenomegaly, normal bowel sounds, no guarding or rigidity. EXTREMITIES: No clubbing, changes of chronic venous stasis in bilateral lower extremities with increased redness and tenderness in the right lower extremity, no cyanosis, 2+ pulses and upper and lower extremities. MUSCULOSKELETAL: Muscle strength and tone normal. SPINE: No scoliosis or deformity SKIN: No rashes CENTRAL NERVOUS SYSTEM: Alert and oriented -3. No focal deficits, tone is normal in all 4 extremities. PSYCHIATRIC: Alert and oriented -3. Appropriate affect. Intact judgment and insight. Results - Laboratory Findings CBC and BMP: 08/22/20 19:10 08/22/20 19:10 PT/INR, D-dimer PT 12.0 sec (9.0-12.0) 08/22/20 19:10 INR 1.2 (<1.2) H 08/22/20 19:10 D-Dimer 5.46 mg/L FEU (<0.60) H 08/23/20 09:33 Abnormal lab findings: Abnormal Labs 08/22/20 08/22/20 08/22/20 19:10 19:10 19:10 RDW 23.6 H Plt Count 85 L D Lymphocytes # 0.7 L INR 1.2 H APTT D-Dimer Sodium 135 L Potassium 3.1 L Chloride 95 L BUN 103 H* Creatinine 2.01 H Glucose 106 H POC Glucose (mg/dL) Plasma Lactic Acid Ubaldo Magnesium 2.5 H Total Bilirubin 2.5 H AST 72 H ALT 115 H Alkaline Phosphatase 312 H Troponin I Total Protein 5.9 L Albumin 2.7 L 08/22/20 08/22/20 08/22/20 19:10 19:10 22:13 RDW Plt Count Lymphocytes # INR APTT D-Dimer Sodium Potassium Chloride BUN Creatinine Glucose POC Glucose (mg/dL) Plasma Lactic Acid Ubaldo 3.1 H* Magnesium Total Bilirubin AST ALT Alkaline Phosphatase Troponin I 0.245 H* 0.255 H* Total Protein Albumin 08/22/20 08/22/20 08/23/20 22:13 22:32 01:41 RDW Plt Count Lymphocytes # INR APTT D-Dimer Sodium Potassium Chloride BUN Creatinine Glucose POC Glucose (mg/dL) 158 H Plasma Lactic Acid Ubaldo 2.3 H* Magnesium Total Bilirubin AST ALT Alkaline Phosphatase Troponin I 0.272 H* Total Protein Albumin 08/23/20 08/23/20 08/23/20 01:41 01:41 05:01 RDW Plt Count Lymphocytes # INR APTT >200.0 H* D-Dimer Sodium Potassium Chloride BUN Creatinine Glucose POC Glucose (mg/dL) Plasma Lactic Acid Ubaldo 2.1 H* 3.0 H* Magnesium Total Bilirubin AST ALT Alkaline Phosphatase Troponin I Total Protein Albumin 08/23/20 08/23/20 08/23/20 09:33 09:33 11:57 RDW Plt Count Lymphocytes # INR APTT 76.0 H D-Dimer 5.46 H Sodium Potassium Chloride BUN Creatinine Glucose POC Glucose (mg/dL) 160 H Plasma Lactic Acid Ubaldo 2.5 H* Magnesium Total Bilirubin AST ALT Alkaline Phosphatase Troponin I Total Protein Albumin - Diagnostic Findings Additional studies: EKG reviewed, echocardiogram revealed Assessment and Plan Plan: Assessment: #1. Dyspnea, rule out possibility of pulmonary embolism. Note that the patient has been on maintenance dose of Eliquis 2.5 mg twice daily for history of paroxysmal atrial fibrillation, however did have recent Covid 19 pneumonia #2. Acute right lower leg DVT, currently on heparin infusion #3. Acute kidney injury #4. Mild lactic acidosis, rule out possibility of sepsis #5. Troponin elevation, cardiology is following #6. Chronic CHF with diastolic dysfunction and EF of 50-55% #7. Recent prolonged hospitalization from 07/16/2020 through 08/13/2020 for Covid 19 pneumonia #8. Paroxysmal A. fib on the renal dose Eliquis 2.5 mg twice daily #9. Mild aortic stenosis #10. Morbid obesity with history of lap banding #11. History of diabetes mellitus #12. History of chronic back pain Plan We will review the chest x-ray when it's available, continue heparin infusion for now, VQ scan is pending, it is likely patient will need increased dose of Eliquis because of failure of renal dose Eliquis in view of recent Covid 19 i nfection. Right now she appears to be comfortable, denies any dyspnea, no increased oxygen demand, vital signs are stable. We'll continue on IV heparin right now continue to follow I performed a history & physical examination of the patient and discussed their management with my nurse practitioner, Corrina Paz. I reviewed the nurse practitioner's note and agree with the documented findings and plan of care. Lung sounds are positive for clear breath sounds. The findings and the impression was discussed with the patient. I attest to the documentation by the nurse practitioner. Time with Patient: Greater than 30
--- NOTE | 2020-08-23 14:48 | CONS ---
CONSULTATION REASON FOR CONSULT: Renal failure. HISTORY OF PRESENT ILLNESS: Patient is a 75-year-old female who was admitted to the hospital with complaints of not feeling well, increased weakness. The patient was recently hospitalized for COVID pneumonia last month. She also has an underlying history of type 2 diabetes, chronic diastolic CHF, paroxysmal atrial fibrillation. Previous creatinine has been at about 1.0-1.1 mg/dL. On this admission, her creatinine was 2 and staying at about 2. Blood pressure is noted to be low with systolic in the 90s. Prior to admission, patient was not maintained on any nonsteroidal anti- inflammatory agents. She is currently incontinent and patient states that she has been voiding. I do not see a chest x-ray. Echocardiogram shows ejection fraction 55% to 60%, with moderate concentric LVH. PAST MEDICAL HISTORY: Recent COVID pneumonia, atrial fibrillation, CHF, diastolic heart failure, type 2 diabetes, osteoarthritis. PAST SURGICAL HISTORY: Bariatric surgery, hysterectomy, bilateral knee arthroscopies, bilateral knee arthroplasty, cataract surgery, explorative lap with oophorectomy. SOCIAL HISTORY: Negative for smoking, drug abuse or alcohol abuse. Patient does have history of depression. MEDICATIONS: Medications prior to admission included Januvia, Tambocor, vitamin D, Protonix, Ventolin, Eliquis, melatonin, vitamin C, Bumex, insulin, metoprolol, magnesium, zinc, potassium. ALLERGIES: Multiple include CIPRO, ADHESIVE TAPE, DOXYCYCLINE, HYDROCHLOROTHIAZIDE, ACTOS. REVIEW OF SYSTEMS: As per HPI. Other systems negative. PHYSICAL EXAMINATION: The patient is currently comfortable, awake. She is not in any acute distress. Blood pressure is 93/51 later on 103/60, heart rate 74 per minute. Patient is not febrile. EXAMINATION OF THE HEART: S1, S2. EXAMINATION OF THE LUNGS: Bilateral breath sounds are heard. Abdomen is soft, obese, nontender. Examination of lower extremities shows chronic skin changes. Chronic edema noted bilaterally. LABS: Labs show sodium 135, potassium 3.1, chloride 95, CO2 is 29, BUN 103, serum creatinine 2.0. Lactic acid 3.1, down to 2.3 now. ASSESSMENT: 1. Acute kidney injury, mostly associated with low blood pressure, currently nonoliguric. Need to rule out urine retention. A bladder scan will be checked postvoid preferably. The patient is not on any nephrotoxic medications. I will order a chest x-ray. 2. History of recent COVID pneumonia last month. 3. Right lower extremity deep venous thrombosis, maintained on IV heparin. 4. Paroxysmal atrial fibrillation, rate is controlled, maintained on flecainide, Lopressor and Eliquis for anticoagulation. 5. Hypokalemia secondary to diuretics. PLAN: Hold off on diuretics for now. I will hold off on the IV fluids as well. Check chest x-ray. Repeat labs in a.m. Check urine analysis. Check bladder scan. Rule out urine retention. Check urinalysis as well. Check ultrasound of the kidneys if not done recently. Thank you for this consultation. We will continue to follow the patient with you during her hospitalization. MMODL / IJN: [id number] /
--- NOTE | 2020-08-23 15:41 | NM ---
EXAMINATION TYPE: NM pul vent and perfuse DATE OF EXAM: 08/23/2020 COMPARISON: Chest x-ray 08/23/2020 HISTORY: Congestive heart failure, deep venous thrombosis, history of Covid pneumonia TECHNIQUE: Utilizing inhalation of 68 mCi Tc 99m DTPA aerosol and intravenous injection of 5.1 mCi o f Tc 99m MAA, ventilation and perfusion images are acquired post injection in multiple projections. FINDINGS: Normal radiotracer distribution is noted in the lungs. Matched defect is present at the posterior lef t lung base seen on the posterior exam which may be artifactual, uptake is otherwise essentially homo genous ventilation and perfusion imaging There is no evidence of mismatched defects. IMPRESSION: Low probability for pulmonary embolism
--- NOTE | 2020-08-23 16:18 | XR ---
EXAMINATION TYPE: XR chest 2V DATE OF EXAM: 08/23/2020 COMPARISON: Chest x-ray dated 08/05/2020 HISTORY: Covid pneumonia TECHNIQUE: Frontal and lateral views of the chest are obtained. FINDINGS: Findings are similar to prior exam. Right hemidiaphragm is elevated. IMPRESSION: Correlate for Covid pneumonia.
[2020-08-23] MEDS: HYDROPHILIC CREAM 180 GM TUBE TOPICAL SCH (16:31)
[2020-08-23] MEDS ORDERED: SODIUM CHLORIDE 0.9% 1,000 ML IV ONE (16:49)
[2020-08-23] MEDS ORDERED: VANCOMYCIN 1,000 MG in SODIUM CHLORIDE 0.9% 250 ML IVPB STA (16:50)
[2020-08-23] MEDS ORDERED: CEFEPIME 2 GM in SODIUM CHLORIDE 0.9% 100 ML IVPB SCH (17:00)
[2020-08-23] MEDS ORDERED: VANCOMYCIN IV PER PHARMACY 1 EACH MISC MISCELLANE PRN (17:01)
[2020-08-23] MEDS ORDERED: VANCOMYCIN 2,000 MG in SODIUM CHLORIDE 0.9% 500 ML 500 ML IVPB STA (17:06)
[2020-08-23 17:22] LABS: Glucose,Whole Blood 312 mg/dL (75-99)
[2020-08-23] MEDS: PANTOPRAZOLE 40 MG TABLET PO SCH (18:35)
[2020-08-23 20:21] LABS: Glucose,Whole Blood 290 mg/dL (75-99)
[2020-08-23] MEDS: LINAGLIPTIN 5 MG TABLET PO SCH (21:57)
[2020-08-23] MEDS: MELATONIN 3 MG TABLET PO SCH (21:57)
[2020-08-23] MEDS: CEFEPIME 1 GM in SODIUM CHLORIDE 0.9% 50 ML IVPB SCH (23:38)
[2020-08-24 06:01] LABS: Glucose,Whole Blood 126 mg/dL (75-99)
[2020-08-24] MEDS: CEFEPIME 1 GM in SODIUM CHLORIDE 0.9% 50 ML IVPB SCH (06:16)
[2020-08-24] MEDS: INSULIN ASPART (NovoLOG) 100 UNIT/ML VIAL SQ SCH ×5 (08:59→20:29)
[2020-08-24] MEDS: INSULIN DETEMIR (LEVEMIR) 100 UNIT/ML SYR SQ SCH (09:00)
[2020-08-24] MEDS: FLECAINIDE 50 MG TAB PO SCH ×2 (09:00→20:28)
[2020-08-24] MEDS: ZINC SULFATE 220 MG CAP PO SCH (09:00)
[2020-08-24] MEDS: METOPROLOL TARTRATE 12.5 MG TAB PO SCH (09:00)
[2020-08-24] MEDS: PANTOPRAZOLE 40 MG TABLET PO SCH ×2 (09:00→17:18)
[2020-08-24] MEDS: CHOLECALCIFEROL 25 MCG (1000 IU) TABLET PO SCH (09:00)
[2020-08-24] MEDS: BENZONATATE 100 MG CAP PO SCH ×3 (09:00→20:28)
[2020-08-24] MEDS: HYDROPHILIC CREAM 180 GM TUBE TOPICAL SCH (09:01)
[2020-08-24] MEDS: CHOLESTYRAMINE (WITH SUGAR) 4 GM PACKET PO SCH ×2 (09:11→16:59)
[2020-08-24] MEDS: OXYMETAZOLINE 0.05% NASL SPRAY 1 SPRAY BOTTLE NASAL SCH ×2 (09:11→21:40)
[2020-08-24] MEDS: HEPARIN SOD,PORK IN 0.45% NACL 25,000 UNIT in 0.45% NACL 1 250ML.BAG IV SCH (09:13)
[2020-08-24] MEDS: SODIUM CHLORIDE 0.9% 1,000 ML IV SCH (09:14)
[2020-08-24 10:00] LABS: Calcium 8.3 mg/dL (8.4-10.2); Potassium 2.8 mmol/L (3.5-5.1)
--- NOTE | 2020-08-24 11:30 | P.PN ---
Subjective Progress Note Date: 08/24/20 This is 75-year-old female with history of atrial fibrillation and chronic diastolic CHF and also known Covid infection, is admitted to the hospital with increasing shortness of breath. She is diagnosed to have DVT. A pulmonary perfusion study yesterday was low probability for pulmonary emboli. She also had a high creatinine. Patient was taken of the diuretics. Yesterday. Her creatinine has come down to 1.3, potassium is low which is being corrected. Echo cardiogram showed normal LV function without any segmental wall motion defects. There is no evidence of acute cardiac injury at this time. Patient can be switched to oral anticoagulants when cleared by pulmonology. Diuretics to be resumed when cleared by nephrology. current medical therapy. Chest x- ray findings are consistent with chronic Covid infection. Objective - Vital Signs Vital signs: Vital Signs Temp 97.3 F L 08/24/20 08:00 Pulse 59 L 08/24/20 08:00 Resp 18 08/24/20 08:00 BP 102/57 08/24/20 08:00 Pulse Ox 97 08/24/20 08:00 Intake & Output 08/23/20 08/24/20 08/24/20 18:59 06:59 18:59 Intake Total 504.341 48.794 240 Output Total 1550 1400 Balance -1045.659 -1351.206 240 Weight 124.5 kg 129.1 kg Intake: Intake, IV Titration 44.341 48.794 Amount Heparin Sod,Pork in 0.45% 44.341 48.794 NaCl 25,000 unit In 0.45 % NaCl 1 250ml.bag @ 8. 288 UNITS/KG/HR 10 mls/hr IV .Q24H [facility] Rx#: [id number] Oral 460 240 Output: Urine 1550 1400 Uretheral (Knight) 1550 Other: Voiding Method Indwelling Catheter # Bowel Movements 1 - Exam Patient is not personally examined. As for consultation notes - Labs CBC & Chem 7: 08/22/20 19:10 08/24/20 06:59 Labs: Abnormal Lab Results - Last 24 Hours (Table) 08/23/20 08/23/20 08/23/20 Range/Units 01:41 11:42 11:57 APTT (22.0-30.0) sec Potassium (3.5-5.1) mmol/L BUN (7-17) mg/dL Creatinine (0.52-1.04) mg/dL Glucose (74-99) mg/dL POC Glucose (mg/dL) 160 H (75-99) mg/dL Plasma Lactic Acid Ubaldo (0.7-2.0) mmol/L Calcium (8.4-10.2) mg/dL Procalcitonin 0.39 H (0.02-0.09) ng/mL Ur Leukocyte Esterase Moderate H (Negative) Urine RBC 7 H (0-5) /hpf Urine WBC 20 H (0-5) /hpf Urine WBC Clumps Rare H (None) /hpf Urine Bacteria Occasional H (None) /hpf Hyaline Casts 90 H (0-2) /lpf Urine Mucus Rare H (None) /hpf 08/23/20 08/23/20 08/23/20 Range/Units 15:24 17:19 20:19 APTT (22.0-30.0) sec Potassium (3.5-5.1) mmol/L BUN (7-17) mg/dL Creatinine (0.52-1.04) mg/dL Glucose (74-99) mg/dL POC Glucose (mg/dL) 312 H 290 H (75-99) mg/dL Plasma Lactic Acid Ubaldo 3.4 H* (0.7-2.0) mmol/L Calcium (8.4-10.2) mg/dL Procalcitonin (0.02-0.09) ng/mL Ur Leukocyte Esterase (Negative) Urine RBC (0-5) /hpf Urine WBC (0-5) /hpf Urine WBC Clumps (None) /hpf Urine Bacteria (None) /hpf Hyaline Casts (0-2) /lpf Urine Mucus (None) /hpf 08/23/20 08/24/20 08/24/20 Range/Units 22:02 01:48 06:00 APTT (22.0-30.0) sec Potassium (3.5-5.1) mmol/L BUN (7-17) mg/dL Creatinine (0.52-1.04) mg/dL Glucose (74-99) mg/dL POC Glucose (mg/dL) 126 H (75-99) mg/dL Plasma Lactic Acid Ubaldo 2.7 H* 2.3 H* (0.7-2.0) mmol/L Calcium (8.4-10.2) mg/dL Procalcitonin (0.02-0.09) ng/mL Ur Leukocyte Esterase (Negative) Urine RBC (0-5) /hpf Urine WBC (0-5) /hpf Urine WBC Clumps (None) /hpf Urine Bacteria (None) /hpf Hyaline Casts (0-2) /lpf Urine Mucus (None) /hpf 08/24/20 08/24/20 08/24/20 Range/Units 06:59 06:59 07:57 APTT 47.8 H (22.0-30.0) sec Potassium 2.8 L (3.5-5.1) mmol/L BUN 83 H (7-17) mg/dL Creatinine 1.31 H (0.52-1.04) mg/dL Glucose 123 H (74-99) mg/dL POC Glucose (mg/dL) (75-99) mg/dL Plasma Lactic Acid Ubaldo 2.9 H* (0.7-2.0) mmol/L Calcium 8.3 L (8.4-10.2) mg/dL Procalcitonin (0.02-0.09) ng/mL Ur Leukocyte Esterase (Negative) Urine RBC (0-5) /hpf Urine WBC (0-5) /hpf Urine WBC Clumps (None) /hpf Urine Bacteria (None) /hpf Hyaline Casts (0-2) /lpf Urine Mucus (None) /hpf Microbiology - Last 24 Hours (Table) 08/23/20 11:42 Urine Culture - Preliminary Urine,Clean Catch Assessment and Plan (1) Troponin level elevated Current Visit: Yes Status: Acute Code(s): R77.8 - OTHER SPECIFIED ABNORMALITIES OF PLASMA PROTEINS SNOMED Code(s): 807052822 (2) DVT (deep venous thrombosis) Current Visit: Yes Status: Acute Code(s): I82.409 - ACUTE EMBOLISM AND THOMBOS UNSP DEEP VN UNSP LOWER EXTREMITY SNOMED Code(s): 641280674 (3) COVID-19 Current Visit: No Status: Acute Code(s): U07.1 - COVID-19 SNOMED Code(s): 088667991 (4) Hypoxia Current Visit: No Status: Acute Code(s): R09.02 - HYPOXEMIA SNOMED Code(s): 813914540 Plan: Patient has chronic hypoxia related to pneumonia. No evidence of CHF. No evidence of any acute cardiac injury pattern. Echo Cardigan showed normal LV function. Continue treatment for DVT and concentric switching to oral an ticoagulants. We'll follow
[2020-08-24 11:52] LABS: Glucose,Whole Blood 155 mg/dL (75-99)
[2020-08-24] MEDS ORDERED: VANCOMYCIN 2,000 MG in SODIUM CHLORIDE 0.9% 500 ML 500 ML IVPB ONE (12:00)
--- NOTE | 2020-08-24 14:02 | US ---
EXAMINATION TYPE: US abdomen complete DATE OF EXAM: 08/24/2020 COMPARISON: Chest CT CLINICAL HISTORY: LFT, atten renal for MADELEINE. Elevated LFT's, MADELEINE EXAM MEASUREMENTS: Extremely limited due to pt severely, morbidly obese Spleen: 13.4 cm Right Kidney: 11.5 x 6.4 x 5.8 cm Left Kidney: 11.6 x 5.1 x 5.4 cm Extremely, limited, somewhat nondiagnostic due to severe morbid obesity Pancreas: Unable to visualize Liver: Suspect echotexture is coarse Gallbladder: Surgically absent Evidence for sonographic Jay's sign: No CBD: Unable to visualize Spleen: Enlarged Right Kidney: No evidence of hydro Left Kidney: wnl Upper IVC: Unable to visualize Abd Aorta: Unable to visualize There is no ascites. Cortical medullary differentiation is maintained. IMPRESSION: Splenomegaly, possible hepatic steatosis, hepatocellular disease. Limited exam.
--- NOTE | 2020-08-24 14:49 | P.PN ---
Subjective Progress Note Date: 08/24/20 Principal diagnosis: Dyspnea 75-year-old white female patient of Dr. Bazan with recent history of hospitalization from 07/16/2020 through 08/13/2020 after having prolonged hospi talization with COVID 19 pneumonia. Patient had a long hospital course, required high flow oxygen, and was weaned down to 3 L of oxygen on the day of discharge on 08/13/2020 and was discharged to [facility] nursing and rehab in stable condition. Patient has history of COPD, paroxysmal A. fib on Eliquis at 2.5 mg twice a day adjusted for her impaired renal function, type 2 diabetes mellitus, chronic diastolic CHF, history of peptic ulcer disease with prior episode of acute GI bleeding, anemia of chronic disease, morbid obesity status post lap band surgery. Patient was to the hospital yesterday on 08/22/2020 from the half-way after being diagnosed with a DVT in the right leg. The right leg is red and painful, however not any more swollen than the left leg and patient does have some chronic lower extremity swelling and venous stasis. Patient was also complaining of some shortness of breath, not feeling well, but no fever or chills. No nausea vomiting or diarrhea, no chest pain. Note that she was on Eliquis 2.5 mg at the half-way. FiO2 requirement was the same, her pulse ox is 99% on 3 L, she thinks she may have had anxiety attack. No cough or phlegm production no chest pain. Her EKG reveals A. fib with controlled rate. Her labs have been reviewed, showing white blood cell count 4.8, hemoglobin of 12, sodium is 140, potassium 3.0, CO2 is 29, BUN of 106, creatinine is 2, LFTs are elevated, with AST at 56, ALT of 117, ALT is 326, she did have troponin elevation of 0.245, 0.255, and 0.272, proBNP was 2000, and she did have some mild lactic acid elevation. In view of new diagnosis of right extremity DVT and the concern for possibility of underlying pulmonary embolism despite the chronic anticoagulation patient was placed on heparin infusion. She is breathing comfortably today, she denies any chest pain, chest x-ray is pending today, her kidney function is impaired, and creatinine is up to 2.01 today. VQ scan is pending, and we were asked to see in consultation for shortness of breath On 08/24/2020 patient is seen in follow-up on selective care unit, she is resting in bed, appears weak, slightly pale, but denies any worsening shortness of breath, she remains on 2 L of oxygen pulse ox of 96%, as been afebrile, no cognitive chest pain, vital signs have been stable, no cough or congestion, yesterday her Bumex was placed on hold related to renal function, renal function is improved on today's labs, creatinine is down to 1.31, B1 is 83, and clinicall y patient appears fluid overloaded, today's chest x-ray shows mixed interstitial and alveolar infiltrates. VQ scan showed low probability for pulmonary embolism. Urine culture show no growth. She remains on cefepime and vancomycin. No increased cough or phlegm production. Objective - Vital Signs Vital signs: Vital Signs Temp 97.3 F L 08/24/20 08:00 Pulse 59 L 08/24/20 08:00 Resp 18 08/24/20 08:00 BP 102/57 08/24/20 08:00 Pulse Ox 97 08/24/20 08:00 Intake & Output 08/23/20 08/24/20 08/24/20 18:59 06:59 18:59 Intake Total 504.341 48.794 240 Output Total 1550 1400 Balance -1045.659 -1351.206 240 Weight 124.5 kg 129.1 kg Intake: Intake, IV Titration 44.341 48.794 Amount Heparin Sod,Pork in 0.45% 44.341 48.794 NaCl 25,000 unit In 0.45 % NaCl 1 250ml.bag @ 8. 288 UNITS/KG/HR 10 mls/hr IV .Q24H [facility] Rx#: [id number] Oral 460 240 Output: Urine 1550 1400 Uretheral (Knight) 1550 Other: Voiding Method Indwelling Catheter # Bowel Movements 1 - Exam GENERAL EXAM: Alert, very pleasant, 75-year-old white female, on 3 L of oxygen the pulse ox 96-99% comfortable in no apparent distress. HEAD: Normocephalic/atraumatic. EYES: Normal reaction of pupils, equal size. Conjunctiva pink, sclera white. NOSE: Clear with pink turbinates. THROAT: No erythema or exudates. NECK: No masses, no JVD, no thyroid enlargement, no adenopathy. CHEST: No chest wall deformity. Symmetrical expansion. LUNGS: Equal air entry with no crackles, wheeze, rhonchi or dullness. CVS: Regular rate and rhythm, normal S1 and S2, no gallops, no murmurs, no rubs ABDOMEN: Soft, nontender. No hepatosplenomegaly, normal bowel sounds, no guarding or rigidity. EXTREMITIES: No clubbing, changes of chronic venous stasis in bilateral lower extremities with increased redness and tenderness in the right lower extremity, no cyanosis, 2+ pulses and upper and lower extremities. MUSCULOSKELETAL: Muscle strength and tone normal. SPINE: No scoliosis or deformity SKIN: No rashes CENTRAL NERVOUS SYSTEM: Alert and oriented -3. No focal deficits, tone is normal in all 4 extremities. PSYCHIATRIC: Alert and oriented -3. Appropriate affect. Intact judgment and insight. - Labs CBC & Chem 7: 08/22/20 19:10 08/24/20 06:59 Labs: Abnormal Lab Results - Last 24 Hours (Table) 08/23/20 08/23/20 08/23/20 Range/Units 01:41 15:24 17:19 APTT (22.0-30.0) sec Potassium (3.5-5.1) mmol/L BUN (7-17) mg/dL Creatinine (0.52-1.04) mg/dL Glucose (74-99) mg/dL POC Glucose (mg/dL) 312 H (75-99) mg/dL Plasma Lactic Acid Ubaldo 3.4 H* (0.7-2.0) mmol/L Calcium (8.4-10.2) mg/dL Procalcitonin 0.39 H (0.02-0.09) ng/mL 08/23/20 08/23/20 08/24/20 Range/Units 20:19 22:02 01:48 APTT (22.0-30.0) sec Potassium (3.5-5.1) mmol/L BUN (7-17) mg/dL Creatinine (0.52-1.04) mg/dL Glucose (74-99) mg/dL POC Glucose (mg/dL) 290 H (75-99) mg/dL Plasma Lactic Acid Ubaldo 2.7 H* 2.3 H* (0.7-2.0) mmol/L Calcium (8.4-10.2) mg/dL Procalcitonin (0.02-0.09) ng/mL 08/24/20 08/24/20 08/24/20 Range/Units 06:00 06:59 06:59 APTT (22.0-30.0) sec Potassium 2.8 L (3.5-5.1) mmol/L BUN 83 H (7-17) mg/dL Creatinine 1.31 H (0.52-1.04) mg/dL Glucose 123 H (74-99) mg/dL POC Glucose (mg/dL) 126 H (75-99) mg/dL Plasma Lactic Acid Ubaldo 2.9 H* (0.7-2.0) mmol/L Calcium 8.3 L (8.4-10.2) mg/dL Procalcitonin (0.02-0.09) ng/mL 08/24/20 08/24/20 Range/Units 07:57 11:50 APTT 47.8 H (22.0-30.0) sec Potassium (3.5-5.1) mmol/L BUN (7-17) mg/dL Creatinine (0.52-1.04) mg/dL Glucose (74-99) mg/dL POC Glucose (mg/dL) 155 H (75-99) mg/dL Plasma Lactic Acid Ubaldo (0.7-2.0) mmol/L Calcium (8.4-10.2) mg/dL Procalcitonin (0.02-0.09) ng/mL Microbiology - Last 24 Hours (Table) 08/23/20 11:42 Urine Culture - Preliminary Urine,Clean Catch Assessment and Plan Plan: Assessment: #1. Dyspnea, possibility of pulmonary embolism was ruled out by low probability VQ scan. Dyspnea likely related to recent history of COVID 19 pneumonitis and possibility of diastolic CHF #2. Acute right lower leg DVT, currently on heparin infusion, Note that the patient has been on maintenance dose of Eliquis 2.5 mg twice daily for history of paroxysmal atrial fibrillation, however did have recent Covid 19 pneumonia #3. Acute kidney injury, improved #4. Mild lactic acidosis, rule out possibility of sepsis #5. Troponin elevation, cardiology is following #6. Chronic CHF with diastolic dysfunction and EF of 50-55% #7. Recent prolonged hospitalization from 07/16/2020 through 08/13/2020 for Covid 19 pneumonia #8. Paroxysmal A. fib on the renal dose Eliquis 2.5 mg twice daily #9. Mild aortic stenosis #10. Morbid obesity with history of lap banding #11. History of diabetes mellitus #12. History of chronic back pain Plan Increase Eliquis to 5 mg twice daily, discontinue heparin infusion, this x-ray has been reviewed showing interstitial alveolar infiltrates related to recent history of COVID 19 pneumonitis and CHF exacerbation. Renal profile has improved on today's labs, we will put the patient back on her Bumex and Zaroxolyn. She was started on empiric antibiotics as well, she's had no fever or chills. Daily labs, electrolytes and renal profile, monitor febrile pattern, oxygenation pattern. Repeat chest x-ray in the morning, will follow I performed a history & physical examination of the patient and discussed their management with my nurse practitioner, Corrina Paz. I reviewed the nurse practitioner's note and agree with the documented findings and plan of care. Lung sounds are positive for clear breath sounds. The findings and the impression was discussed with the patient. I attest to the documentation by the nurse practitioner. Time with Patient: Less than 30
--- NOTE | 2020-08-24 16:15 | PN ---
PROGRESS NOTE The patient is seen for followup for acute kidney injury, mostly associated with urine retention. Creatinine is down from 2.0-1.3. The patient had about 1500 mL of urine obtained on initial Knight catheter placement yesterday. PHYSICAL EXAMINATION: On examination today, she is comfortable denies any significant complaints. Blood pressure is 100/50, heart rate 82 per minute. She is afebrile. EXAMINATION OF THE HEART: S1, S2. EXAMINATION OF LUNGS: Decreased breath sounds at bases. The patient is morbidly obese. Abdomen is soft. Morbidly obese. Examination of lower extremities shows 1+ edema bilaterally with chronic skin changes. INVESTIGATION CLERK exam grossly intact. The patient states she has not walked for many months now, although she has been able to sit on the side of the bed in rehab. LABS: Labs show sodium 141, potassium 2.8, chloride 102, BUN 83, creatinine 1.3. Lactic acid was 2.9. ASSESSMENT: 1. Acute kidney injury mostly obstructive uropathy and some element of acute tubular necrosis associated with hypotension, currently significantly improved. Continue with Knight catheter. 2. Hypokalemia associated with postobstructive diuresis currently being replaced. 3. Lactic acidosis associated with hypotension with systolic blood pressure in the 80s yesterday, currently improved. 4. Morbid obesity. 5. Recent COVID-19 pneumonia in July of 2020. 6. Paroxysmal atrial fibrillation with controlled ventricular rate. 7. Right lower extremity deep venous thrombosis, maintained on IV heparin. PLAN: Hold IV fluids, encourage increased oral intake. The patient is maintained on Bumex as well which we can continue for now and continue with the Knight catheter. Urine culture is currently pending. MMODL / IJN: [id number] /
--- NOTE | 2020-08-24 16:34 | P.PN ---
Subjective Progress Note Date: 08/24/20 HISTORY OF PRESENT ILLNESS This is a 75-year-old female patient of Dr. Betancur with past medical history significant for COVID-19 pneumonia diagnosed July 17 with a month long hospitalization, chronic hypoxic respiratory failure secondary to Covid, paroxysmal atrial fibrillation on eliquis, diabetes mellitus type 2, chronic diastolic heart failure, peptic ulcer disease, chronic anemia. Patient was discharged from the hospital and when to [facility] for subacute rehab. She has been maintained on 2 L nasal cannula. Patient was apparently diagnosed with a DVT in her right lower extremity yesterday. She states that she had a panic attack and she couldn't catch her breath and in general she was not feeling well. She states she feels like they are force-feeding her and just wants to be left alone. She complains of dehydration and feeling dry. No chest pain. No nausea, vomiting. No abdominal pain. Patient was apparently sent here to be evaluated for possible pulmonary embolism. Patient was afebrile, heart rate 83, blood pressure 83/51, pulse ox 96%. Platelet count 85, WBC 5, hemoglobin 12. Sodium 135, potassium 3.1, chloride 95, CO2 29, BUN 103, creatinine 2.01. Blood sugar 106 magnesium 2.5. Total bilirubin 2.5, AST 72, ALT 115, alkaline phosph atase 312. Lactic acid 3.1. Troponin 0.245. EKG was atrial fibrillation with no acute ST changes. Noted that patient's troponins were positive on last admission and trending down. Patient was started on heparin drip, admitted to the [facility] floor and consult with cardiology for elevated troponins, nephrology for acute kidney injury and pulmonary was added for rule out PE. We'll consult in place for multiple pressure ulcers on the coccyx area present on admission. VQ scan was ordered and canceled after discussion with pulmonary medicine. Echocardiogram reveals EF of 55-60% with mild aortic stenosis, mild mitral regurgitation, mild tricuspid regurgitation. 08/24: VQ scan was low probability for pulmonary embolism. Abdominal ultrasound revealed splenomegaly, possible hepatic steatosis, hepatocellular disease. Limited exam due to morbid obesity significant for getting here dyspnea. No ascites. Patient has been seen by nephrology with recommendations to hold IV fluids and encourage oral intake, continue Bumex and Knight catheter. Cardiology has evaluated the patient, no evidence of acute cardiac injury. Repeat blood work reveals sodium 141, potassium 2.8, chloride 102, CO2 30, BUN 83 and creatinine 1.31. Lactic acid 2.9. Blood sugars 123 155. Urine culture in progress. Patient has been resumed on Zaroxolyn and Bumex. She is on antibiotics the form of cefepime and vancomycin. REVIEW OF SYSTEMS Constitutional: No fever, no chills, no night sweats. No weight change. Reports weakness, Reportsfatigue. No daytime sleepiness. EENT: No headache. No blurred vision or double vision, no loss of vision. No loss of Hearing, no ringing in the ears, no dizziness. No nasal drainage or congestion. No epistaxis. No sore throat. Complains of dry mouth. Lungs: Reports shortness of breath, cough, no sputum production. No wheezing. Cardiovascular: No chest pain, Reports lower extremity edema. No palpitations. No paroxysmal nocturnal dyspnea. No orthopnea. No lightheadedness or dizzines s. No syncopal episodes. Abdominal: No abdominal pain. No nausea, vomiting. No diarrhea. No cons tipation. No bloody or tarry stools.. No loss of appetite. Genitourinary: No dysuria, increased frequency, urgency. No urinary retention. Musculoskeletal: No myalgias. Reports muscle weakness, no gait dysfunction, no frequent falls. No back pain. No neck pain. Integumentary: No wounds, no lesions. No rash or pruritus. No unusual bruising. No change in hair or nails. Neurologic: No aphasia. No facial droop. No change in mentation. No head injury. No headache. No paralysis. No paresthesia. Psychiatric: No depression. Reports anxiety. No mood swings. Endocrine: No abnormal blood sugars. No weight change. PHYSICAL EXAMINATION Gen: This is a morbidly obese 75-year-old female. Patient is resting in bed and appears to be in no acute distress. No respiratory distress is noted. HEENT: Head is atraumatic, normocephalic. Pupils equal, round. Sclerae is anicteric. Dry oral mucous membranes. NECK: Supple. No JVD. No lymphadenopathy. No thyromegaly. LUNGS: Clear to auscultation. No wheezes or rhonchi. No intercostal retractions. HEART: Irregular rate and rhythm. Systolic murmur. ABDOMEN: Soft. Bowel sounds are present. No masses. No tenderness. EXTREMITIES: 1+ pedal edema. No calf tenderness. NEUROLOGICAL: Patient is awake, alert and oriented x3. Cranial nerves 2 through 12 are grossly intact. ASSESSMENT AND PLAN 1. Acute lactic acidosis, status post IV fluids. 2. Acute kidney injury with metabolic acidosis. Consult with nephrology. Patient resumed on Bumex and Zaroxolyn. 3. Elevated troponin with downtrending since last admission. Do not suspect non-ST ND. Cardiology consult. Echocardiogram as above. 4. New diagnosis of right lower extremity DVT. Eliquis 5 mg twice daily. VQ scan low probability for pulmonary embolism. Consult with pulmonary medicine appreciated. 5. Elevated liver function test most likely secondary to Covid 19 as she was normal on her past admission initially. Numbers are stable from August 15. Liver ultrasound as above. 6. Chronic thrombocytopenia. Continue to monitor. 7. Chronic hypoxic respiratory failure on oxygen at 2-3 L nasal cannula. Continue oxygen therapy. Pulmonary consult. 8. Paroxysmal atrial fibrillation. Continue flecainide 50 g twice daily, Lopressor 12.5 mg daily, eliquis 5 mg twice daily. 9. Diabetes mellitus type 2. Continue Levemir 40 units daily, NovoLog 3 units with breakfast and NovoLog scale before meals and at bedtime, Januvia 100 mg daily or equivalent. 10. Recent Covid 19 pneumonia with elevated inflammatory markers, stable. Continue albuterol inhaler as needed. 11. Chronic diastolic heart failure. Bumex and Zaroxolyn resumed. Cardiology consult. 12. Peptic ulcer disease and GI prophylaxis. Protonix 40 mg twice daily. 13. Stage II decubitus ulcers to the coccyx area. Wound Center consult. 14. DVT prophylaxis. Heparin drip for now and transition to eliquis. DISCHARGE PLAN RETURN TO [facility] FOR SUBACUTE REHAB on Thursday. Impression and plan of care have been directed as dictated by the signing physician. Leeann Rose nurse practitioner acting as scribe for signing physician. Objective - Vital Signs Vital signs: Vital Signs Temp 97.4 F L 08/24/20 04:00 Pulse 86 08/24/20 04:00 Resp 20 08/24/20 04:00 BP 94/53 08/24/20 04:00 Pulse Ox 95 08/24/20 04:00 Intake & Output 08/23/20 08/24/20 08/24/20 18:59 06:59 18:59 Intake Total 504.341 48.794 240 Output Total 1550 1400 Balance -1045.659 -1351.206 240 Weight 124.5 kg 129.1 kg Intake: Intake, IV Titration 44.341 48.794 Amount Heparin Sod,Pork in 0.45% 44.341 48.794 NaCl 25,000 unit In 0.45 % NaCl 1 250ml.bag @ 8. 288 UNITS/KG/HR 10 mls/hr IV .Q24H [facility] Rx#: [id number] Oral 460 240 Output: Urine 1550 1400 Uretheral (Knight) 1550 Other: Voiding Method Indwelling Catheter - Labs CBC & Chem 7: 08/22/20 19:10 08/24/20 06:59 Labs: Abnormal Lab Results - Last 24 Hours (Table) 08/23/20 08/23/20 08/23/20 Range/Units 01:41 09:33 09:33 APTT 76.0 H (22.0-30.0) sec D-Dimer 5.46 H (<0.60) mg/L FEU Potassium (3.5-5.1) mmol/L BUN (7-17) mg/dL Creatinine (0.52-1.04) mg/dL Glucose (74-99) mg/dL POC Glucose (mg/dL) (75-99) mg/dL Plasma Lactic Acid Ubaldo 2.5 H* (0.7-2.0) mmol/L Calcium (8.4-10.2) mg/dL Procalcitonin 0.39 H (0.02-0.09) ng/mL Ur Leukocyte Esterase (Negative) Urine RBC (0-5) /hpf Urine WBC (0-5) /hpf Urine WBC Clumps (None) /hpf Urine Bacteria (None) /hpf Hyaline Casts (0-2) /lpf Urine Mucus (None) /hpf 08/23/20 08/23/20 08/23/20 Range/Units 11:42 11:57 15:24 APTT (22.0-30.0) sec D-Dimer (<0.60) mg/L FEU Potassium (3.5-5.1) mmol/L BUN (7-17) mg/dL Creatinine (0.52-1.04) mg/dL Glucose (74-99) mg/dL POC Glucose (mg/dL) 160 H (75-99) mg/dL Plasma Lactic Acid Ubaldo 3.4 H* (0.7-2.0) mmol/L Calcium (8.4-10.2) mg/dL Procalcitonin (0.02-0.09) ng/mL Ur Leukocyte Esterase Moderate H (Negative) Urine RBC 7 H (0-5) /hpf Urine WBC 20 H (0-5) /hpf Urine WBC Clumps Rare H (None) /hpf Urine Bacteria Occasional H (None) /hpf Hyaline Casts 90 H (0-2) /lpf Urine Mucus Rare H (None) /hpf 08/23/20 08/23/20 08/23/20 Range/Units 17:19 20:19 22:02 APTT (22.0-30.0) sec D-Dimer (<0.60) mg/L FEU Potassium (3.5-5.1) mmol/L BUN (7-17) mg/dL Creatinine (0.52-1.04) mg/dL Glucose (74-99) mg/dL POC Glucose (mg/dL) 312 H 290 H (75-99) mg/dL Plasma Lactic Acid Ubaldo 2.7 H* (0.7-2.0) mmol/L Calcium (8.4-10.2) mg/dL Procalcitonin (0.02-0.09) ng/mL Ur Leukocyte Esterase (Negative) Urine RBC (0-5) /hpf Urine WBC (0-5) /hpf Urine WBC Clumps (None) /hpf Urine Bacteria (None) /hpf Hyaline Casts (0-2) /lpf Urine Mucus (None) /hpf 08/24/20 08/24/20 08/24/20 Range/Units 01:48 06:00 06:59 APTT (22.0-30.0) sec D-Dimer (<0.60) mg/L FEU Potassium 2.8 L (3.5-5.1) mmol/L BUN 83 H (7-17) mg/dL Creatinine 1.31 H (0.52-1.04) mg/dL Glucose 123 H (74-99) mg/dL POC Glucose (mg/dL) 126 H (75-99) mg/dL Plasma Lactic Acid Ubaldo 2.3 H* (0.7-2.0) mmol/L Calcium 8.3 L (8.4-10.2) mg/dL Procalcitonin (0.02-0.09) ng/mL Ur Leukocyte Esterase (Negative) Urine RBC (0-5) /hpf Urine WBC (0-5) /hpf Urine WBC Clumps (None) /hpf Urine Bacteria (None) /hpf Hyaline Casts (0-2) /lpf Urine Mucus (None) /hpf 08/24/20 08/24/20 Range/Units 06:59 07:57 APTT 47.8 H (22.0-30.0) sec D-Dimer (<0.60) mg/L FEU Potassium (3.5-5.1) mmol/L BUN (7-17) mg/dL Creatinine (0.52-1.04) mg/dL Glucose (74-99) mg/dL POC Glucose (mg/dL) (75-99) mg/dL Plasma Lactic Acid Ubaldo 2.9 H* (0.7-2.0) mmol/L Calcium (8.4-10.2) mg/dL Procalcitonin (0.02-0.09) ng/mL Ur Leukocyte Esterase (Negative) Urine RBC (0-5) /hpf Urine WBC (0-5) /hpf Urine WBC Clumps (None) /hpf Urine Bacteria (None) /hpf Hyaline Casts (0-2) /lpf Urine Mucus (None) /hpf Microbiology - Last 24 Hours (Table) 08/23/20 11:42 Urine Culture - Preliminary Urine,Clean Catch
[2020-08-24 16:45] LABS: Glucose,Whole Blood 170 mg/dL (75-99)
[2020-08-24] MEDS: APIXABAN 5 MG TAB PO SCH ×2 (17:16→20:28)
[2020-08-24] MEDS: HYDROcodone/APAP 5-325MG 1 EACH TAB PO PRN ×2 (17:16→21:38)
[2020-08-24] MEDS: BUMETANIDE 1 MG TAB PO SCH (17:16)
[2020-08-24] MEDS: CEFEPIME 2 GM in SODIUM CHLORIDE 0.9% 100 ML IVPB SCH (17:19)
[2020-08-24] MEDS: DRY MOUTH SPRAY 44.3 SPRAY/44.3 ML SPRAY MUCOUS MEM PRN (17:20)
[2020-08-24 19:48] LABS: Glucose,Whole Blood 321 mg/dL (75-99)
[2020-08-24] MEDS: LINAGLIPTIN 5 MG TABLET PO SCH (20:28)
[2020-08-24] MEDS: MELATONIN 3 MG TABLET PO SCH (20:28)
[2020-08-24] MEDS ORDERED: POTASSIUM CHLORIDE ER 20 MEQ TAB.ER PO STA (22:26)
[2020-08-25 05:55] LABS: Glucose,Whole Blood 50 mg/dL (75-99)
[2020-08-25] MEDS: INSULIN ASPART (NovoLOG) 100 UNIT/ML VIAL SQ SCH ×6 (06:23→21:11)
[2020-08-25 06:30] LABS: Glucose,Whole Blood 54 mg/dL (75-99)
[2020-08-25 06:53] LABS: Glucose,Whole Blood 87 mg/dL (75-99)
[2020-08-25] MEDS: HYDROcodone/APAP 5-325MG 1 EACH TAB PO PRN ×2 (06:53→21:10)
[2020-08-25] MEDS: CEFEPIME 2 GM in SODIUM CHLORIDE 0.9% 100 ML IVPB SCH ×2 (06:55→17:54)
--- NOTE | 2020-08-25 07:43 | XR ---
EXAMINATION TYPE: XR chest 1V portable DATE OF EXAM: 08/25/2020 COMPARISON: 08/23/2020 HISTORY: CHF TECHNIQUE: Single frontal view of the chest is obtained. FINDINGS there is moderate diffuse interstitial opacity essentially unchanged compared to the prior s tudy. The right hemidiaphragm remains markedly elevated. The heart size is difficult to assess second genny to the right diaphragmatic elevation. There is no pneumothorax. The osseous structures are intact. IMPRESSION: Moderate diffuse interstitial opacity with no significant interval change.
[2020-08-25] MEDS ORDERED: metOLazone 5 MG TAB PO SCH (09:00)
[2020-08-25 09:11] LABS: Potassium 2.7 mmol/L (3.5-5.1)
[2020-08-25] MEDS: INSULIN DETEMIR (LEVEMIR) 100 UNIT/ML SYR SQ SCH (09:39)
[2020-08-25] MEDS: VANCOMYCIN 2,000 MG in SODIUM CHLORIDE 0.9% 500 ML 500 ML IVPB SCH (09:39)
[2020-08-25] MEDS: OXYMETAZOLINE 0.05% NASL SPRAY 1 SPRAY BOTTLE NASAL SCH ×2 (09:40→23:53)
--- NOTE | 2020-08-25 10:56 | P.PN ---
Subjective Progress Note Date: 08/25/20 Principal diagnosis: 75-year-old obese female seen in consultation regarding acute kidney injury. This is deemed to be from outlet obstruction. Today her potassium is low at 2.9 she has had several loose bowel movements. No nausea vomiting. She is also on metolazone but no other diuretics explained this degree of low potassium Creatinine is down to normal Other than this she has had atrial fibrillation, right lower extremity DVT Other than this her liver ultrasound shows possible hepatic steatosis and splenomegaly Objective - Vital Signs Vital signs: Vital Signs Temp 97.5 F L 08/25/20 08:45 Pulse 86 08/25/20 08:45 Resp 18 08/25/20 08:45 BP 119/45 08/25/20 08:45 Pulse Ox 95 08/25/20 08:45 Intake & Output 08/24/20 08/25/20 08/25/20 18:59 06:59 18:59 Intake Total 598 Output Total 400 Balance 598 -400 Weight 129.7 kg Intake: Oral 598 Output: Urine 400 Other: Voiding Method Indwelling Catheter Indwelling Catheter Indwelling Catheter # Bowel Movements 1 Examination she is somewhat obese Awake alert oriented comfortable. HEENT exam no JVP neck is supple no facial asymmetry Lungs are clear to auscultation good air entry bilaterally Heart sounds unremarkable for any murmur rub gallop Abdomen soft nontender obese Extreme exam was trace edema Neurologically awake alert oriented. - Labs CBC & Chem 7: 08/22/20 19:10 08/25/20 07:06 Labs: Abnormal Lab Results - Last 24 Hours (Table) 08/24/20 08/24/20 08/24/20 Range/Units 11:50 16:42 19:46 Potassium (3.5-5.1) mmol/L POC Glucose (mg/dL) 155 H 170 H 321 H (75-99) mg/dL 08/25/20 08/25/20 08/25/20 Range/Units 05:53 06:18 07:06 Potassium 2.7 L* (3.5-5.1) mmol/L POC Glucose (mg/dL) 50 L 54 L (75-99) mg/dL Microbiology - Last 24 Hours (Table) 08/23/20 11:42 Urine Culture - Final Urine,Clean Catch Assessment and Plan Assessment: Impression 1. Acute kidney injury from outlet obstruction improved creatinine was 2 and has improved to 1 this morning 2. Hypokalemia secondary to combination of postobstructive diuresis, diuretics. Ruled out magnesium deficiency, magnesium was 2.5. 3. DVT right leg 4. Paroxysmal atrial fibrillation 5. Diabetes mellitus 6. Thrombocytopenia likely from splenomegaly, although she had normal platelet count on 08/02/2020. Recommendation for Hypokalemia is deemed to be from her diarrhea and also from her postoperative diuresis. We will continue to replace and see if she will be able to maintain her potassium otherwise we'll work her up.
--- NOTE | 2020-08-25 10:59 | P.PN ---
Subjective Progress Note Date: 08/25/20 History of present illness: This is 75-year-old female with history of atrial fibrillation and chronic marvin stolic CHF and also known Covid infection, is admitted to the hospital with increasing shortness of breath. She is diagnosed to have DVT. A pulmonary perfusion study yesterday was low probability for pulmonary emboli. She also had a high creatinine. Patient was taken of the diuretics. Yesterday. Her creatinine has come down to 1.3, potassium is low which is being corrected. Echo cardiogram showed normal LV function without any segmental wall motion defects. There is no evidence of acute cardiac injury at this time. Patient can be switched to oral anticoagulants when cleared by pulmonology. Diuretics to be resumed when cleared by nephrology. current medical therapy. Chest x-ray findings are consistent with chronic Covid infection. 08/25: Patient has been afebrile, heart rate 86, blood pressure 119/45, pulse ox 95% on 3 L nasal cannula. A repeat chest x-ray reveals moderate diffuse interstitial opacities with no significant interval change. Physical examination: Patient is not personally examined. Notes has been reviewed. Assessment: Acute DVT Paroxysmal atrial fibrillation on anticoagulation with eliquis Mild aortic stenosis Chronic diastolic heart failure Abnormal troponins, acute coronary syndrome ruled out Acute kidney injury Plan: Patient has chronic hypoxia related to COVID pneumonia. No evidence of CHF. No evidence of any acute cardiac injury pattern. Echo Cardigan showed normal LV function. Continue treatment for DVT with oral anticoagulation. Would recommend discontinuing diuretics. Cardiology will follow on an as-needed basis. Practitioner note has been reviewed, I agree with documented findings and plan of care. Patient was seen and examined. Objective - Vital Signs Vital signs: Vital Signs Temp 97.5 F L 08/25/20 08:45 Pulse 86 08/25/20 08:45 Resp 18 08/25/20 08:45 BP 119/45 08/25/20 08:45 Pulse Ox 95 08/25/20 08:45 Intake & Output 08/24/20 08/25/20 08/25/20 18:59 06:59 18:59 Intake Total 598 600 Output Total 400 Balance 598 -400 600 Weight 129.7 kg Intake: Oral 598 600 Output: Urine 400 Other: Voiding Method Indwelling Catheter Indwelling Catheter Indwelling Catheter # Bowel Movements 1 1 - Labs CBC & Chem 7: 08/22/20 19:10 08/25/20 07:06 Labs: Abnormal Lab Results - Last 24 Hours (Table) 08/24/20 08/24/20 08/24/20 Range/Units 11:50 16:42 19:46 Potassium (3.5-5.1) mmol/L POC Glucose (mg/dL) 155 H 170 H 321 H (75-99) mg/dL 08/25/20 08/25/20 08/25/20 Range/Units 05:53 06:18 07:06 Potassium 2.7 L* (3.5-5.1) mmol/L POC Glucose (mg/dL) 50 L 54 L (75-99) mg/dL Microbiology - Last 24 Hours (Table) 08/23/20 11:42 Urine Culture - Final Urine,Clean Catch
[2020-08-25] MEDS: POTASSIUM CHLORIDE ER 20 MEQ TAB.ER PO SCH ×4 (11:01→21:11)
[2020-08-25] MEDS: HYDROPHILIC CREAM 180 GM TUBE TOPICAL SCH (11:02)
[2020-08-25 11:51] LABS: Glucose,Whole Blood 220 mg/dL (75-99)
[2020-08-25] MEDS: CHOLECALCIFEROL 25 MCG (1000 IU) TABLET PO SCH (12:34)
[2020-08-25] MEDS: CHOLESTYRAMINE (WITH SUGAR) 4 GM PACKET PO SCH ×2 (12:35→17:32)
[2020-08-25] MEDS: METOPROLOL TARTRATE 12.5 MG TAB PO SCH (12:41)
[2020-08-25] MEDS: PANTOPRAZOLE 40 MG TABLET PO SCH ×2 (12:41→17:31)
[2020-08-25] MEDS: BUMETANIDE 1 MG TAB PO SCH (12:41)
[2020-08-25] MEDS: APIXABAN 5 MG TAB PO SCH ×2 (12:41→21:11)
[2020-08-25] MEDS: BENZONATATE 100 MG CAP PO SCH ×3 (12:41→21:11)
[2020-08-25] MEDS: FLECAINIDE 50 MG TAB PO SCH ×2 (12:41→21:11)
[2020-08-25] MEDS: ZINC SULFATE 220 MG CAP PO SCH (12:41)
--- NOTE | 2020-08-25 13:58 | P.PN ---
Subjective Progress Note Date: 08/25/20 HISTORY OF PRESENT ILLNESS This is a 75-year-old female patient of Dr. Betancur with past medical history significant for COVID-19 pneumonia diagnosed July 17 with a month long hospitalization, chronic hypoxic respiratory failure secondary to Covid, paroxysmal atrial fibrillation on eliquis, diabetes mellitus type 2, chronic diastolic heart failure, peptic ulcer disease, chronic anemia. Patient was discharged from the hospital and when to [facility] for subacute rehab. She has been maintained on 2 L nasal cannula. Patient was apparently diagnosed with a DVT in her right lower extremity yesterday. She states that she had a panic attack and she couldn't catch her breath and in general she was not feeling well. She states she feels like they are force-feeding her and just wants to be left alone. She complains of dehydration and feeling dry. No chest pain. No nausea, vomiting. No abdominal pain. Patient was apparently sent here to be evaluated for possible pulmonary embolism. Patient was afebrile, heart rate 83, blood pressure 83/51, pulse ox 96%. Platelet count 85, WBC 5, hemoglobin 12. Sodium 135, potassium 3.1, chloride 95, CO2 29, BUN 103, creatinine 2.01. Blood sugar 106 magnesium 2.5. Total bilirubin 2.5, AST 72, ALT 115, alkaline phosph atase 312. Lactic acid 3.1. Troponin 0.245. EKG was atrial fibrillation with no acute ST changes. Noted that patient's troponins were positive on last admission and trending down. Patient was started on heparin drip, admitted to the [facility] floor and consult with cardiology for elevated troponins, nephrology for acute kidney injury and pulmonary was added for rule out PE. We'll consult in place for multiple pressure ulcers on the coccyx area present on admission. VQ scan was ordered and canceled after discussion with pulmonary medicine. Echocardiogram reveals EF of 55-60% with mild aortic stenosis, mild mitral regurgitation, mild tricuspid regurgitation. 08/24: VQ scan was low probability for pulmonary embolism. Abdominal ultrasound revealed splenomegaly, possible hepatic steatosis, hepatocellular disease. Limited exam due to morbid obesity significant for getting here dyspnea. No ascites. Patient has been seen by nephrology with recommendations to hold IV fluids and encourage oral intake, continue Bumex and Knight catheter. Cardiology has evaluated the patient, no evidence of acute cardiac injury. Repeat blood work reveals sodium 141, potassium 2.8, chloride 102, CO2 30, BUN 83 and creatinine 1.31. Lactic acid 2.9. Blood sugars 123 155. Urine culture in progress. Patient has been resumed on Zaroxolyn and Bumex. She is on antibiotics the form of cefepime and vancomycin. 08/25. Patient examined bedside continues to be lethargic. She did have 4 bowel movements this morning which were watery. Stool culture and C. diff will be obtained as patient is not on any stool softeners that will contribute to the di arrhea. Vitals evaluated patient is afebrile.Blood pressure 94/55 oxygen saturation 98% on 3 L. Cardiology recommends holding of diuretics as patient does not appear to be in CHF. her troponin is elevated we'll continue with the IV antibiotics. Metolazone was discontinued Bumex reduced to 1 mg once a day. Patient's potassium is 2.7 Will repeat CMP tomorrow. Continue potassium supplementation twice a day with diuresis. Creatinine is improved REVIEW OF SYSTEMS Constitutional: No fever, no chills, no night sweats. No weight change. Reports weakness, Reportsfatigue. No daytime sleepiness. EENT: No headache. No blurred vision or double vision, no loss of vision. No loss of Hearing, no ringing in the ears, no dizziness. No nasal drainage or congestion. No epistaxis. No sore throat. Complains of dry mouth. Lungs: Reports shortness of breath, cough, no sputum production. No wheezing. Cardiovascular: No chest pain, Reports lower extremity edema. No palpitations. No paroxysmal nocturnal dyspnea. No orthopnea. No lightheadedness or dizziness. No syncopal episodes. Abdominal: No abdominal pain. No nausea, vomiting. No diarrhea. No constipation. No bloody or tarry stools.. No loss of appetite. Genitourinary: No dysuria, increased frequency, urgency. No urinary retention. Musculoskeletal: No myalgias. Reports muscle weakness, no gait dysfunction, no frequent falls. No back pain. No neck pain. Integumentary: No wounds, no lesions. No rash or pruritus. No unusual bruising. No change in hair or nails. Neurologic: No aphasia. No facial droop. No change in mentation. No head injury. No headache. No paralysis. No paresthesia. Psychiatric: No depression. Reports anxiety. No mood swings. Endocrine: No abnormal blood sugars. No weight change. Objective - Vital Signs Vital signs: Vital Signs Temp 97.3 F L 08/25/20 12:40 Pulse 106 H 08/25/20 12:40 Resp 18 08/25/20 12:40 BP 94/55 08/25/20 12:40 Pulse Ox 98 08/25/20 12:40 Intake & Output 08/24/20 08/25/20 08/25/20 18:59 06:59 18:59 Intake Total 598 600 Output Total 400 Balance 598 -400 600 Weight 129.7 kg Intake: Oral 598 600 Output: Urine 400 Other: Voiding Method Indwelling Catheter Indwelling Catheter Indwelling Catheter # Bowel Movements 1 1 - Exam PHYSICAL EXAMINATION Gen: This is a morbidly obese 75-year-old female. Patient is resting in bed and appears to be in no acute distress. No respiratory distress is noted. HEENT: Head is atraumatic, normocephalic. Pupils equal, round. Sclerae is anicteric. Dry oral mucous membranes. NECK: Supple. No JVD. No lymphadenopathy. No thyromegaly. LUNGS: Clear to auscultation. No wheezes or rhonchi. No intercostal retractions. HEART: Irregular rate and rhythm. Systolic murmur. ABDOMEN: Soft. Bowel sounds are present. No masses. No tenderness. EXTREMITIES: 1+ pedal edema. No calf tenderness. NEUROLOGICAL: Patient is awake, alert and oriented x3. Cranial nerves 2 through 12 are grossly intact. - Labs CBC & Chem 7: 08/22/20 19:10 08/25/20 07:06 Labs: Abnormal Lab Results - Last 24 Hours (Table) 08/24/20 08/24/20 08/25/20 Range/Units 16:42 19:46 05:53 Potassium (3.5-5.1) mmol/L POC Glucose (mg/dL) 170 H 321 H 50 L (75-99) mg/dL 08/25/20 08/25/20 08/25/20 Range/Units 06:18 07:06 11:50 Potassium 2.7 L* (3.5-5.1) mmol/L POC Glucose (mg/dL) 54 L 220 H (75-99) mg/dL Microbiology - Last 24 Hours (Table) 08/23/20 11:42 Urine Culture - Final Urine,Clean Catch Assessment and Plan Plan: 1. Acute lactic acidosis, status post IV fluids. 2. Acute kidney injury with metabolic acidosis. Consult with nephrology. Bumex reduced and Zaroxolyn Discontinued as patient appeared dehydrated 3. Elevated troponin with downtrending since last admission. Do not suspect non-ST NE. Cardiology consult. Echocardiogram as above. 4. New diagnosis of right lower extremity DVT. Eliquis 5 mg twice daily. VQ scan low probability for pulmonary embolism. Consult with pulmonary medicine appreciated. 5. Elevated liver function test most likely secondary to Covid 19 as she was normal on her past admission initially. Numbers are stable from August 15. Liver ultrasound as above. 6. Chronic thrombocytopenia. Continue to monitor. 7. Chronic hypoxic respiratory failure on oxygen at 2-3 L nasal cannula with persistent bibasilar opacities. Her calcitonin elevated continue antibiotics. Continue oxygen therapy. Pulmonary consult. 8. Paroxysmal atrial fibrillation. Continue flecainide 50 g twice daily, Lopressor 12.5 mg daily, eliquis 5 mg twice daily. 9. Diabetes mellitus type 2. Continue Levemir 40 units daily, NovoLog 3 units with breakfast and NovoLog scale before meals and at bedtime, Januvia 100 mg daily or equivalent. 10. Recent Covid 19 pneumonia with elevated inflammatory markers, stable. Continue albuterol inhaler as needed. We'll calcitonin elevated. Continue cefepime and Zosyn. 11. Chronic diastolic heart failure. Bumex and Zaroxolyn resumed. Cardiology consult. 12. Peptic ulcer disease and GI prophylaxis. Protonix 40 mg twice daily. 13. Stage II decubitus ulcers to the coccyx area. Wound Center consult. 14. DVT prophylaxis. Heparin drip for now and transition to eliquis. 15 acute diarrhea rule out colitis C. diff as patient is on IV antibiotics. DISCHARGE PLAN RETURN TO [facility] FOR SUBACUTE REHAB on Thursday.
[2020-08-25 16:47] LABS: Glucose,Whole Blood 158 mg/dL (75-99)
[2020-08-25 20:43] LABS: Glucose,Whole Blood 156 mg/dL (75-99)
[2020-08-25] MEDS: LINAGLIPTIN 5 MG TABLET PO SCH (21:11)
[2020-08-25] MEDS: MELATONIN 3 MG TABLET PO SCH (21:11)
[2020-08-26 06:07] LABS: Glucose,Whole Blood 30 mg/dL (75-99)
[2020-08-26 06:18] LABS: Glucose,Whole Blood 41 mg/dL (75-99)
[2020-08-26] MEDS ORDERED: DEXTROSE 50% SYRINGE 50 ML IVP ONE (06:18)
[2020-08-26] MEDS: INSULIN DETEMIR (LEVEMIR) 100 UNIT/ML SYR SQ SCH (06:24)
[2020-08-26] MEDS: INSULIN ASPART (NovoLOG) 100 UNIT/ML VIAL SQ SCH ×4 (06:24→20:15)
[2020-08-26] MEDS: CEFEPIME 2 GM in SODIUM CHLORIDE 0.9% 100 ML IVPB SCH ×2 (06:28→17:31)
[2020-08-26 06:43] LABS: Glucose,Whole Blood 94 mg/dL (75-99)
[2020-08-26 07:55] LABS: Albumin 2.1 g/dL (3.5-5.0); Calcium 8.2 mg/dL (8.4-10.2); Potassium 3.6 mmol/L (3.5-5.1); Total Bilirubin 1.4 mg/dL (0.2-1.3); Total Protein 5.1 g/dL (6.3-8.2)
[2020-08-26] MEDS: BENZONATATE 100 MG CAP PO SCH ×3 (08:38→20:14)
[2020-08-26] MEDS: CHOLECALCIFEROL 25 MCG (1000 IU) TABLET PO SCH (08:38)
[2020-08-26] MEDS: OXYMETAZOLINE 0.05% NASL SPRAY 1 SPRAY BOTTLE NASAL SCH ×2 (08:39→20:23)
[2020-08-26] MEDS: ZINC SULFATE 220 MG CAP PO SCH (08:45)
[2020-08-26] MEDS: FLECAINIDE 50 MG TAB PO SCH ×2 (08:45→20:15)
[2020-08-26] MEDS: METOPROLOL TARTRATE 12.5 MG TAB PO SCH (08:45)
[2020-08-26] MEDS: PANTOPRAZOLE 40 MG TABLET PO SCH ×2 (08:45→16:55)
[2020-08-26] MEDS: APIXABAN 5 MG TAB PO SCH ×2 (08:45→20:15)
[2020-08-26] MEDS: POTASSIUM CHLORIDE ER 20 MEQ TAB.ER PO SCH (08:45)
[2020-08-26] MEDS: BUMETANIDE 1 MG TAB PO SCH (08:46)
[2020-08-26] MEDS: HYDROPHILIC CREAM 180 GM TUBE TOPICAL SCH (08:46)
[2020-08-26] MEDS: CHOLESTYRAMINE (WITH SUGAR) 4 GM PACKET PO SCH ×2 (09:49→16:51)
--- NOTE | 2020-08-26 10:05 | P.PN ---
Subjective Progress Note Date: 08/26/20 Principal diagnosis: 75-year-old obese female seen in consultation regarding acute kidney injury. This is deemed to be from outlet obstruction. She has a Knight catheter placed and had diuresis She had hypokalemia potassium was 2.9 deemed to be from diarrhea, she was on replacement and potassium is normalized today at 3.6. She was also on metolazone. No nausea vomiting. Creatinine is down to normal This morning she was started on Bumex 1 mg daily Other than this she has had atrial fibrillation, right lower extremity DVT, chronic thrombocytopenia which is on and off , decub on the coccyx area Other than this her liver ultrasound shows possible hepatic steatosis and splenomegaly Objective - Vital Signs Vital signs: Vital Signs Temp 97.3 F L 08/26/20 07:40 Pulse 94 08/26/20 07:40 Resp 18 08/26/20 07:40 BP 95/51 08/26/20 07:40 Pulse Ox 92 L 08/26/20 07:40 Intake & Output 08/25/20 08/26/20 08/26/20 17:59 06:59 18:59 Intake Total Output Total Balance Intake: Oral Output: Urine Other: Voiding Method Indwelling Catheter # Bowel Movements On examination she is awake alert oriented comfortable. She is morbidly obese HEENT exam no JVP neck is supple no facial asymmetry Lungs are clear to auscultation fair air entry bilaterally Heart sounds unremarkable except for atrial fibrillation Abdomen soft obese difficult to examine Extremity exam was minimal edema Neurologically awake alert oriented No or extremely do show some erythema - Labs CBC & Chem 7: 08/22/20 19:10 08/26/20 06:25 Labs: Abnormal Lab Results - Last 24 Hours (Table) 08/25/20 08/25/20 08/25/20 Range/Units 07:06 11:50 16:46 Potassium 2.7 L* (3.5-5.1) mmol/L Chloride (98-107) mmol/L BUN (7-17) mg/dL Glucose (74-99) mg/dL POC Glucose (mg/dL) 220 H 158 H (75-99) mg/dL Calcium (8.4-10.2) mg/dL Total Bilirubin (0.2-1.3) mg/dL AST (14-36) U/L ALT (4-34) U/L Alkaline Phosphatase (38-126) U/L Total Protein (6.3-8.2) g/dL Albumin (3.5-5.0) g/dL 08/25/20 08/26/20 08/26/20 Range/Units 20:41 06:05 06:16 Potassium (3.5-5.1) mmol/L Chloride (98-107) mmol/L BUN (7-17) mg/dL Glucose (74-99) mg/dL POC Glucose (mg/dL) 156 H 30 L 41 L (75-99) mg/dL Calcium (8.4-10.2) mg/dL Total Bilirubin (0.2-1.3) mg/dL AST (14-36) U/L ALT (4-34) U/L Alkaline Phosphatase (38-126) U/L Total Protein (6.3-8.2) g/dL Albumin (3.5-5.0) g/dL 08/26/20 Range/Units 06:25 Potassium (3.5-5.1) mmol/L Chloride 108 H (98-107) mmol/L BUN 58 H (7-17) mg/dL Glucose 108 H (74-99) mg/dL POC Glucose (mg/dL) (75-99) mg/dL Calcium 8.2 L (8.4-10.2) mg/dL Total Bilirubin 1.4 H (0.2-1.3) mg/dL AST 57 H (14-36) U/L ALT 81 H (4-34) U/L Alkaline Phosphatase 228 H (38-126) U/L Total Protein 5.1 L (6.3-8.2) g/dL Albumin 2.1 L (3.5-5.0) g/dL Microbiology - Last 24 Hours (Table) 08/25/20 17:53 Stool Culture - Preliminary Stool Assessment and Plan Assessment: Impression 1. Acute kidney injury from outlet obstruction improved creatinine was 2 and has improved to 0.97 this morning 2. Hypokalemia secondary to combination of postobstructive diuresis, diuretics. Ruled out magnesium deficiency, magnesium was 2.5. Resolved on replacement 3. DVT right leg 4. Paroxysmal atrial fibrillation controlled ventricular response 5. Diabetes mellitus 6. Thrombocytopenia likely from splenomegaly, although she had normal platelet count on 08/02/2020. Recommendation for 1. She is on Bumex 1 mg starting this morning, watch for hypokalemia and if necessary we can add a potassium sparing diuretic such as Aldactone 25 mg a day
[2020-08-26] MEDS: VANCOMYCIN 2,000 MG in SODIUM CHLORIDE 0.9% 500 ML 500 ML IVPB SCH (10:23)
[2020-08-26 11:50] LABS: Glucose,Whole Blood 290 mg/dL (75-99)
--- NOTE | 2020-08-26 15:09 | P.PN ---
Subjective Progress Note Date: 08/26/20 HISTORY OF PRESENT ILLNESS This is a 75-year-old female patient of Dr. Betancur with past medical history significant for COVID-19 pneumonia diagnosed July 17 with a month long hospitalization, chronic hypoxic respiratory failure secondary to Covid, paroxysmal atrial fibrillation on eliquis, diabetes mellitus type 2, chronic diastolic heart failure, peptic ulcer disease, chronic anemia. Patient was discharged from the hospital and when to [facility] for subacute rehab. She has been maintained on 2 L nasal cannula. Patient was apparently diagnosed with a DVT in her right lower extremity yesterday. She states that she had a panic attack and she couldn't catch her breath and in general she was not feeling well. She states she feels like they are force-feeding her and just wants to be left alone. She complains of dehydration and feeling dry. No chest pain. No nausea, vomiting. No abdominal pain. Patient was apparently sent here to be evaluated for possible pulmonary embolism. Patient was afebrile, heart rate 83, blood pressure 83/51, pulse ox 96%. Platelet count 85, WBC 5, hemoglobin 12. Sodium 135, potassium 3.1, chloride 95, CO2 29, BUN 103, creatinine 2.01. Blood sugar 106 magnesium 2.5. Total bilirubin 2.5, AST 72, ALT 115, alkaline phosph atase 312. Lactic acid 3.1. Troponin 0.245. EKG was atrial fibrillation with no acute ST changes. Noted that patient's troponins were positive on last admission and trending down. Patient was started on heparin drip, admitted to the MedSur floor and consult with cardiology for elevated troponins, nephrology for acute kidney injury and pulmonary was added for rule out PE. We'll consult in place for multiple pressure ulcers on the coccyx area present on admission. VQ scan was ordered and canceled after discussion with pulmonary medicine. Echocardiogram reveals EF of 55-60% with mild aortic stenosis, mild mitral regurgitation, mild tricuspid regurgitation. 08/24: VQ scan was low probability for pulmonary embolism. Abdominal ultrasound revealed splenomegaly, possible hepatic steatosis, hepatocellular disease. Limited exam due to morbid obesity significant for getting here dyspnea. No ascites. Patient has been seen by nephrology with recommendations to hold IV fluids and encourage oral intake, continue Bumex and Knight catheter. Cardiology has evaluated the patient, no evidence of acute cardiac injury. Repeat blood work reveals sodium 141, potassium 2.8, chloride 102, CO2 30, BUN 83 and creatinine 1.31. Lactic acid 2.9. Blood sugars 123 155. Urine culture in progress. Patient has been resumed on Zaroxolyn and Bumex. She is on antibiotics the form of cefepime and vancomycin. 08/25. Patient examined bedside continues to be lethargic. She did have 4 bowel movements this morning which were watery. Stool culture and C. diff will be obtained as patient is not on any stool softeners that will contribute to the di arrhea. Vitals evaluated patient is afebrile.Blood pressure 94/55 oxygen saturation 98% on 3 L. Cardiology recommends holding of diuretics as patient does not appear to be in CHF. her troponin is elevated we'll continue with the IV antibiotics. Metolazone was discontinued Bumex reduced to 1 mg once a day. Patient's potassium is 2.7 Will repeat CMP tomorrow. Continue potassium supplementation twice a day with diuresis. Creatinine is improved 08/26 patient examined bedside. He is comfortable is apparently able to eat by herself. An assessment patient denies any shortness of breath or chest pain. Patient does not have any episodes of diarrhea though stool culture was and it was negative for any enteric bacteria. Patient is afebrile blood pressure is 3 oxygen saturation 90% on 2 L. Her calcitonin was elevated continue patient on broad-spectrum antibiotics. Patient also noted to have multiple stage III ulcers on her buttocks continues to need Knight catheter for urinary retention. An assessment of vision [facility] today patient's creatinine is improved to 0.97. Hold Zaroxolyn on discharge. Continue patient on Bumex. Possible plan for discharge on Thursday to subacute rehab. Patient's in the room, plan was updated to the family REVIEW OF SYSTEMS Constitutional: No fever, no chills, no night sweats. No weight change. Reports weakness, Reportsfatigue. No daytime sleepiness. EENT: No headache. No blurred vision or double vision, no loss of vision. No loss of Hearing, no ringing in the ears, no dizziness. No nasal drainage or congestion. No epistaxis. No sore throat. Complains of dry mouth. Lungs: Reports shortness of breath, cough, no sputum production. No wheezing. Cardiovascular: No chest pain, Reports lower extremity edema. No palpitations. No paroxysmal nocturnal dyspnea. No orthopnea. No lightheadedness or dizziness . No syncopal episodes. Abdominal: No abdominal pain. No nausea, vomiting. No diarrhea. No const ipation. No bloody or tarry stools.. No loss of appetite. Genitourinary: No dysuria, increased frequency, urgency. No urinary retention. Musculoskeletal: No myalgias. Reports muscle weakness, no gait dysfunction, no frequent falls. No back pain. No neck pain. Integumentary: No wounds, no lesions. No rash or pruritus. No unusual bruising. No change in hair or nails. Neurologic: No aphasia. No facial droop. No change in mentation. No head injury. No headache. No paralysis. No paresthesia. Psychiatric: No depression. Reports anxiety. No mood swings. Endocrine: No abnormal blood sugars. No weight change. Objective - Vital Signs Vital signs: Vital Signs Temp 97.4 F L 08/26/20 12:34 Pulse 83 08/26/20 12:34 Resp 18 08/26/20 12:34 BP 102/53 08/26/20 12:34 Pulse Ox 92 L 08/26/20 12:34 Intake & Output 08/25/20 08/26/20 08/26/20 17:59 06:59 18:59 Intake Total 600 Output Total Balance 600 Intake: Intake, IV Titration 600 Amount Cefepime 2 gm In Sodium 100 Chloride 0.9% 100 ml @ 25 mls/hr IVPB Q12H [facility] Rx# :[id number] Vancomycin 2,000 mg In 500 Sodium Chloride 0.9% 500 ml 500 ml @ 167 mls/hr IVPB DAILY [facility] Rx#: [id number] Oral Output: Urine Other: Voiding Method Indwelling Catheter # Bowel Movements 1 - Exam PHYSICAL EXAMINATION Gen: This is a morbidly obese 75-year-old female. Patient is resting in bed and appears to be in no acute distress. No respiratory distress is no marizol. HEENT: Head is atraumatic, normocephalic. Pupils equal, round. Sclerae is anicteric. Dry oral mucous membranes. NECK: Supple. No JVD. No lymphadenopathy. No thyromegaly. LUNGS: Clear to auscultation. No wheezes or rhonchi. No intercostal retractions. HEART: Irregular rate and rhythm. Systolic murmur. ABDOMEN: Soft. Bowel sounds are present. No masses. No tenderness. EXTREMITIES: 1+ pedal edema. No calf tenderness. NEUROLOGICAL: Patient is awake, alert and oriented x3. Cranial nerves 2 through 12 are grossly intact. Skin - multiple stage II ulcers present on bilateral buttocks, present on admission - Labs CBC & Chem 7: 08/22/20 19:10 08/26/20 06:25 Labs: Abnormal Lab Results - Last 24 Hours (Table) 08/25/20 08/25/20 08/26/20 Range/Units 16:46 20:41 06:05 Chloride (98-107) mmol/L BUN (7-17) mg/dL Glucose (74-99) mg/dL POC Glucose (mg/dL) 158 H 156 H 30 L (75-99) mg/dL Calcium (8.4-10.2) mg/dL Total Bilirubin (0.2-1.3) mg/dL AST (14-36) U/L ALT (4-34) U/L Alkaline Phosphatase (38-126) U/L Total Protein (6.3-8.2) g/dL Albumin (3.5-5.0) g/dL 08/26/20 08/26/20 08/26/20 Range/Units 06:16 06:25 11:49 Chloride 108 H (98-107) mmol/L BUN 58 H (7-17) mg/dL Glucose 108 H (74-99) mg/dL POC Glucose (mg/dL) 41 L 290 H (75-99) mg/dL Calcium 8.2 L (8.4-10.2) mg/dL Total Bilirubin 1.4 H (0.2-1.3) mg/dL AST 57 H (14-36) U/L ALT 81 H (4-34) U/L Alkaline Phosphatase 228 H (38-126) U/L Total Protein 5.1 L (6.3-8.2) g/dL Albumin 2.1 L (3.5-5.0) g/dL Microbiology - Last 24 Hours (Table) 08/25/20 17:53 Stool Culture - Preliminary Stool Assessment and Plan Plan: 1. Acute lactic acidosis, status post IV fluids. 2. Acute kidney injury with metabolic acidosis secondary to postobstructive diuresis and being on nephrotoxic agents. Resolved. Consult with nephrology. Bumex reduced and ZaroxolynDiscontinued as patient appeared dehydrated 3. Elevated troponin with downtrending since last admission. Do not suspect non-ST ND. Cardiology consult. Echocardiogram as above. 4. New diagnosis of right lower extremity DVT. Eliquis 5 mg twice daily. VQ scan low probability for pulmonary embolism. Consult with pulmonary medicine appreciated. 5. Elevated liver function test most likely secondary to Covid 19 as she was normal on her past admission initially. Numbers are stable from August 15. Liver ultrasound as above. 6. Chronic thrombocytopenia. Continue to monitor. 7. Chronic hypoxic respiratory failure on oxygen at 2-3 L nasal cannula with pe rsistent bibasilar opacities. procalcitonin elevated continue antibiotics. Continue oxygen therapy. Pulmonary consult. 8. Paroxysmal atrial fibrillation. Continue flecainide 50 g twice daily, Lo pressor 12.5 mg daily, eliquis 5 mg twice daily. 9. Diabetes mellitus type 2. Continue Levemir 40 units daily, NovoLog 3 units with breakfast and NovoLog scale before meals and at bedtime, Januvia 100 mg daily or equivalent. 10. Recent Covid 19 pneumonia with elevated inflammatory markers, stable. Continue albuterol inhaler as needed. We'll calcitonin elevated. Continue cefepime and Zosyn. 11. Chronic diastolic heart failure. Bumex and Zaroxolyn resumed. Cardiology consult. 12. Peptic ulcer disease and GI prophylaxis. Protonix 40 mg twice daily. 13. Stage 2 decubitus ulcers to the coccyx area. Isn't on admission [facility] consult. 14. DVT prophylaxis. Heparin drip for now and transition to eliquis. 15 acute diarrhea soft stool noted by the nurse no diarrhea. Stool culture negative for infection DISCHARGE PLAN RETURN TO [facility] FOR SUBACUTE REHAB on Thursday.
[2020-08-26 16:53] LABS: Glucose,Whole Blood 113 mg/dL (75-99)
[2020-08-26] MEDS: HYDROcodone/APAP 5-325MG 1 EACH TAB PO PRN ×2 (16:56→20:14)
[2020-08-26] MEDS: DRY MOUTH SPRAY 44.3 SPRAY/44.3 ML SPRAY MUCOUS MEM PRN (16:57)
[2020-08-26 20:05] LABS: Glucose,Whole Blood 197 mg/dL (75-99)
[2020-08-26] MEDS: MELATONIN 3 MG TABLET PO SCH (20:14)
[2020-08-26] MEDS: LINAGLIPTIN 5 MG TABLET PO SCH (20:15)
[2020-08-27] MEDS: HYDROcodone/APAP 5-325MG 1 EACH TAB PO PRN ×3 (01:20→15:20)
[2020-08-27] MEDS: CEFEPIME 2 GM in SODIUM CHLORIDE 0.9% 100 ML IVPB SCH (03:20)
[2020-08-27] MEDS: traMADol 50 MG TAB PO PRN ×2 (04:28→15:19)
[2020-08-27] MEDS: INSULIN DETEMIR (LEVEMIR) 100 UNIT/ML SYR SQ SCH (06:32)
[2020-08-27] MEDS ORDERED: VANCOMYCIN TROUGH DUE 1 EACH MISC MISCELLANE ONE (08:00)
[2020-08-27] MEDS: INSULIN ASPART (NovoLOG) 100 UNIT/ML VIAL SQ SCH ×3 (08:52→13:30)
[2020-08-27] MEDS: PANTOPRAZOLE 40 MG TABLET PO SCH (08:53)
[2020-08-27] MEDS: BENZONATATE 100 MG CAP PO SCH (08:53)
[2020-08-27] MEDS: APIXABAN 5 MG TAB PO SCH (08:53)
[2020-08-27] MEDS: ZINC SULFATE 220 MG CAP PO SCH (08:53)
[2020-08-27] MEDS: FLECAINIDE 50 MG TAB PO SCH (08:53)
[2020-08-27] MEDS: BUMETANIDE 1 MG TAB PO SCH (08:53)
[2020-08-27] MEDS: CHOLECALCIFEROL 25 MCG (1000 IU) TABLET PO SCH (08:53)
[2020-08-27] MEDS: METOPROLOL TARTRATE 12.5 MG TAB PO SCH (08:53)
[2020-08-27] MEDS: OXYMETAZOLINE 0.05% NASL SPRAY 1 SPRAY BOTTLE NASAL SCH (08:54)
[2020-08-27] MEDS: HYDROPHILIC CREAM 180 GM TUBE TOPICAL SCH (08:54)
[2020-08-27] MEDS: CHOLESTYRAMINE (WITH SUGAR) 4 GM PACKET PO SCH (09:05)
[2020-08-27] MEDS: VANCOMYCIN 2,000 MG in SODIUM CHLORIDE 0.9% 500 ML 500 ML IVPB SCH (09:09)
[2020-08-27] MEDS ORDERED: VANCOMYCIN IV PER PHARMACY 1 EACH MISC MISCELLANE PRN (09:10)
[2020-08-27 09:27] VITALS: RESP 18; TEMP 97.9
--- NOTE | 2020-08-27 10:43 | P.DS ---
Providers Date of admission: 08/22/20 19:43 Expected date of discharge: 08/27/20 Attending physician: Candace Bazan MD Consults: 08/22/20 19:42 Consult Physician Routine Consulting Provider: Octavio Caraballo Consult Reason/Comments: [email or web address] Do you want consulting provider notified?: Yes Consult Physician Routine Consulting Provider: Lupe Macias Consult Reason/Comments: elliott Do you want consulting provider notified?: Yes 08/23/20 10:12 Consult Physician Routine Consulting Provider: Hadley Zuniga Consult Reason/Comments: R/o PE, hx covid Do you want consulting provider notified?: Yes Primary care physician: [facility] Course: HISTORY OF PRESENT ILLNESS This is a 75-year-old female patient of Dr. Betancur with past medical history significant for COVID-19 pneumonia diagnosed July 17 with a month long hospitalization, chronic hypoxic respiratory failure secondary to Covid, paroxysmal atrial fibrillation on eliquis, diabetes mellitus type 2, chronic diastolic heart failure, peptic ulcer disease, chronic anemia. Patient was discharged from the hospital and when to [facility] for subacute rehab. She has been maintained on 2 L nasal cannula. Patient was apparently diagnosed with a DVT in her right lower extremity yesterday. She states that she had a panic attack and she couldn't catch her breath and in general she was not feeling well. She states she feels like they are force-feeding her and just wants to be left alone. She complains of dehydration and feeling dry. No chest pain. No nausea, vomiting. No abdominal pain. Patient was apparently sent here to be evaluated for possible pulmonary embolism. Patient was afebrile, heart rate 83, blood pressure 83/51, pulse ox 96%. Platelet count 85, WBC 5, hemoglobin 12. Sodium 135, potassium 3.1, chloride 95, CO2 29, BUN 103, creatinine 2.01. Blood sugar 106 magnesium 2.5. Total bilirubin 2.5, AST 72, ALT 115, alkaline phosphatase 312. Lactic acid 3.1. Troponin 0.245. EKG was atrial fibrillation with no acute ST changes. Noted that patient's troponins were positive on last admission and trending down. Patient was started on heparin drip, admitted to the MedSur floor and consult with cardiology for elevated troponins, nephrology for acute kidney injury and pulmonary was added for rule out PE. We'll consult in place for multiple pressure ulcers on the coccyx area present on admission. VQ scan was ordered and canceled after discussion with pulmonary medicine. Echocardiogram reveals EF of 55-60% with mild aortic stenosis, mild mitral regurgitation, mild tricuspid regurgitation. 08/24: VQ scan was low probability for pulmonary embolism. Abdominal ultrasound revealed splenomegaly, possible hepatic steatosis, hepatocellular disease. Limited exam due to morbid obesity significant for getting here dyspnea. No ascites. Patient has been seen by nephrology with recommendations to hold IV fluids and encourage oral intake, continue Bumex and Knight catheter. Cardiology has evaluated the patient, no evidence of acute cardiac injury. Repeat blood work reveals sodium 141, potassium 2.8, chloride 102, CO2 30, BUN 83 and creatinine 1.31. Lactic acid 2.9. Blood sugars 123 155. Urine culture in progress. Patient has been resumed on Zaroxolyn and Bumex. She is on antibiotics the form of cefepime and vancomycin. 08/25. Patient examined bedside continues to be lethargic. She did have 4 bowel movements this morning which were watery. Stool culture and C. diff will be obtained as patient is not on any stool softeners that will contribute to the diarrhea. Vitals evaluated patient is afebrile.Blood pressure 94/55 oxygen saturation 98% on 3 L. Cardiology recommends holding of diuretics as patient does not appear to be in CHF. her troponin is elevated we'll continue with the IV antibiotics. Metolazone was discontinued Bumex reduced to 1 mg once a day. Patient's potassium is 2.7 Will repeat CMP tomorrow. Continue potassium supplementation twice a day with diuresis. Creatinine is improved 08/26 patient examined bedside. He is comfortable is apparently able to eat by herself. An assessment patient denies any shortness of breath or chest pain. Patient does not have any episodes of diarrhea though stool culture was and it was negative for any enteric bacteria. Patient is afebrile blood pressure is 3 oxygen saturation 90% on 2 L. Her calcitonin was elevated continue patient on broad-spectrum antibiotics. Patient also noted to have multiple stage III ulcers on her buttocks continues to need Knight catheter for urinary retention. An assessment of vision CMP today patient's creatinine is improved to 0.97. Hold Zaroxolyn on discharge. Continue patient on Bumex. Possible plan for discharge on Thursday to subacute rehab. Patient's in the room, plan was updated to the family 08/27: Patient is currently pulse ox seen 93% on 2 L nasal cannula. She has been afebrile, heart rate in the 80s and 90s, blood pressure 85/52. Repeat blood work reveals normal electrolytes, BUN 59 creatinine 1.31. Blood sugars up and running between 53 and 197. Patient has been seen by pulmonary medicine and cardiology in both signed off. Patient was negative for pulmonary embolism and acute coronary syndrome. Patient is followed by nephrology. Patient states that her breathing status is stable today. She still has a Knight catheter in which will have discontinued at the [facility]. Patient will be discharged to subacute rehab in stable condition. Patient has changed location for [facility] to [facility]. DISCHARGE DIAGNOSES 1. Acute lactic acidosis, resolved. 2. Acute kidney injury with metabolic acidosis secondary to postobstructive diuresis and being on nephrotoxic agents. Resolved. 3. Elevated troponin, acute coronary syndrome ruled out 4. New diagnosis of right lower extremity DVT. 5. Elevated liver function test most likely secondary to Covid 19. 6. Chronic thrombocytopenia. 7. Chronic hypoxic respiratory failure on oxygen at 2-3 L nasal cannula with persistent bibasilar opacities. 8. Paroxysmal atrial fibrillation. 9. Diabetes mellitus type 2. 10. Recent Covid 19 pneumonia with elevated inflammatory markers, stable. 11. Chronic diastolic heart failure. 12. Peptic ulcer disease. 13. Stage 2 decubitus ulcers to the coccyx area. DISCHARGE PLAN SUBACUTE REHAB at [facility] Impression and plan of care have been directed as dictated by the signing physician. Leeann Rose nurse practitioner acting as scribe for signing physician. Patient Condition at Discharge: Stable Plan - Discharge Summary Discharge Rx Participant: Yes New Discharge Prescriptions: New Spironolactone [Aldactone] 12.5 mg PO DAILY #30 tablet Apixaban [Eliquis] 5 mg PO BID tab Continue sitaGLIPtin [Januvia] 100 mg PO DAILY@0800 Flecainide [Tambocor] 50 mg PO BID@0800,2100 Cholecalciferol (Vitamin D3) [Vitamin D3 (5000 Iu)] 125 mcg PO DAILY@1700 Pantoprazole Sodium [Protonix] 40 mg PO BID@0800,1700 Diclofenac Sodium [Voltaren Arthritis Pain 1% Gel] 2 gm TOPICAL QID PRN PRN Reason: Pain Albuterol Inhaler [Ventolin Hfa Inhaler] 2 puff INHALATION RT-Q6H PRN PRN Reason: Shortness Of Breath Melatonin 6 mg PO HS tablet Cholestyramine (with Sugar) [Questran Packet] 4 gm PO BID@1000,1800 packet Magic Butt Paste 1 applic TOPICAL DAILY PRN PRN Reason: MASD Magic Butt Paste 1 applic TOPICAL TID Ascorbic Acid [Vitamin C] 1,000 mg PO DAILY@1700 Benzonatate [Tessalon Perles] 100 mg PO TID@0800,1200,1700 bisacodyL [Bisacodyl] 10 mg RECTAL DAILY PRN PRN Reason: Constipation Bumetanide [BUMEX] 1 mg PO BID@0800,1700 Insulin Aspart [NovoLOG Flexpen] See Protocol SQ ACHS Insulin Aspart [NovoLOG Flexpen] 6 units SQ AC-BID@1100,1630 Insulin Aspart [NovoLOG Flexpen] 3 units SQ DAILY@0700 Insulin Glargine,Hum.rec.anlog [Lantus Solostar] 40 unit SQ HS@2130 Magnesium Hydroxide [Milk of Magnesia Concentrate] 7,200 mg PO Q48H PRN PRN Reason: Constipation Metoprolol Tartrate [Lopressor] 12.5 mg PO DAILY@0800 Na Phos,M-B/Na Phos,Di-Ba [Fleet Adult] 133 ml RECTAL DAILY PRN PRN Reason: Constipation Oxymetazoline 0.05% Nasl [place] [Afrin 0.05% Nasal [place]] 2 spray EA NOSTRIL BID@0800,1700 SILVER sulfADIAZINE CREAM [Silvadene Cream] 1 applic TOPICAL BID Zinc Sulfate [Orazinc] 220 mg PO DAILY@1700 Acetaminophen-Codeine 300-30mg [Tylenol w/codeine #3] 1 tab PO Q6H PRN #12 tab PRN Reason: Pain Discontinued Apixaban [Eliquis] 2.5 mg PO BID@0800,1700 metOLazone [Zaroxolyn] 5 mg PO DAILY@0600 Potassium Chloride ER [K-Dur 20] 40 meq PO DAILY@1700 Discharge Medication List sitaGLIPtin [Januvia] 100 mg PO DAILY@0800 10/18/18 [History] Flecainide [Tambocor] 50 mg PO BID@0800,2100 10/20/19 [History] Cholecalciferol (Vitamin D3) [Vitamin D3 (5000 Iu)] 125 mcg PO DAILY@1700 07/09 [History] Diclofenac Sodium [Voltaren Arthritis Pain 1% Gel] 2 gm TOPICAL QID PRN 07/09/20 [History] Pantoprazole Sodium [Protonix] 40 mg PO BID@0800,1700 07/09/20 [History] Albuterol Inhaler [Ventolin Hfa Inhaler] 2 puff INHALATION RT-Q6H PRN 07/16/20 [History] Cholestyramine (with Sugar) [Questran Packet] 4 gm PO BID@1000,1800 packet 08/12/20 [Rx] Melatonin 6 mg PO HS tablet 08/12/20 [Rx] Ascorbic Acid [Vitamin C] 1,000 mg PO DAILY@1700 08/22/20 [History] Benzonatate [Tessalon Perles] 100 mg PO TID@0800,1200,1700 08/22/20 [History] Bumetanide [BUMEX] 1 mg PO BID@0800,1700 08/22/20 [History] Insulin Aspart [NovoLOG Flexpen] 3 units SQ DAILY@0700 08/22/20 [History] Insulin Aspart [NovoLOG Flexpen] 6 units SQ AC-BID@1100,1630 08/22/20 [History] Insulin Aspart [NovoLOG Flexpen] See Protocol SQ ACHS 08/22/20 [History] Insulin Glargine,Hum.rec.anlog [Lantus Solostar] 40 unit SQ HS@2130 08/22/20 [History] Magic Butt Paste 1 applic TOPICAL DAILY PRN 08/22/20 [History] Magic Butt Paste 1 applic TOPICAL TID 08/22/20 [History] Magnesium Hydroxide [Milk of Magnesia Concentrate] 7,200 mg PO Q48H PRN 08/22/20 [History] Metoprolol Tartrate [Lopressor] 12.5 mg PO DAILY@0800 08/22/20 [History] Na Phos,M-B/Na Phos,Di-Ba [Fleet Adult] 133 ml RECTAL DAILY PRN 08/22/20 [History] Oxymetazoline 0.05% Nasl [place] [Afrin 0.05% Nasal [place]] 2 spray EA NOSTRIL BID@0800,1700 08/22/20 [History] SILVER sulfADIAZINE CREAM [Silvadene Cream] 1 applic TOPICAL BID 08/22/20 [History] Zinc Sulfate [Orazinc] 220 mg PO DAILY@1700 08/22/20 [History] bisacodyL [Bisacodyl] 10 mg RECTAL DAILY PRN 08/22/20 [History] Acetaminophen-Codeine 300-30mg [Tylenol w/codeine #3] 1 tab PO Q6H PRN #12 tab 08/27/20 [Rx] Apixaban [Eliquis] 5 mg PO BID tab 08/27/20 [Rx] Spironolactone [Aldactone] 12.5 mg PO DAILY #30 tablet 08/27/20 [Rx] Follow up Appointment(s)/Referral(s): Ld Betancur MD [Primary Care Provider] - 1 Week (After discharge from ECF) Discharge Disposition: TRANSFER TO SNF/ECF
[2020-08-27 11:02] LABS: Calcium 8.1 mg/dL (8.4-10.2); Magnesium 1.9 mg/dL (1.6-2.3); Potassium 3.9 mmol/L (3.5-5.1)
[2020-08-27 11:39] LABS: Glucose,Whole Blood 53 mg/dL (75-99)
[2020-08-27 11:58] LABS: Glucose,Whole Blood 101 mg/dL (75-99)
--- NOTE | 2020-08-27 12:23 | P.PN ---
Subjective Patient is seen in follow-up for acute kidney injury. Renal function little worse today. Has a Knight catheter for urinary retention. Nonoliguric. Maintained on oral Bumex 1 mg daily. Denies chest pain or shortness of breath. Currently on 2 L nasal cannula. Vancomycin level elevated at 31 today. Vital signs are stable. General: The patient appeared well nourished and normally developed. HEENT: Head exam is unremarkable. Neck is without jugular venous distension. LUNGS: Breath sounds decreased. HEART: Rate and Rhythm are regular. ABDOMEN: Soft, nontender. Obese. EXTREMITITES: 1+ edema. Erythema noted. No drainage noted. Objective - Vital Signs Vital signs: Vital Signs Temp 97.9 F 08/27/20 08:50 Pulse 96 08/27/20 08:50 Resp 18 08/27/20 08:50 BP 85/52 08/27/20 08:50 Pulse Ox 93 L 08/27/20 08:50 Intake & Output 08/26/20 08/27/20 08/27/20 18:59 06:59 18:59 Intake Total 1205 Output Total 950 300 Balance 255 -300 Weight 138.9 kg Intake: Intake, IV Titration 600 Amount Cefepime 2 gm In Sodium 100 Chloride 0.9% 100 ml @ 25 mls/hr IVPB Q12H [facility] Rx# :[id number] Vancomycin 2,000 mg In 500 Sodium Chloride 0.9% 500 ml 500 ml @ 167 mls/hr IVPB DAILY [facility] Rx#: [id number] Oral 605 Output: Urine 950 300 Other: Voiding Method Indwelling Catheter Indwelling Catheter Indwelling Catheter # Bowel Movements 1 1 - Labs CBC & Chem 7: 08/22/20 19:10 08/27/20 07:55 Labs: Abnormal Lab Results - Last 24 Hours (Table) 08/26/20 08/26/20 08/27/20 Range/Units 16:51 20:03 07:55 BUN (7-17) mg/dL Creatinine (0.52-1.04) mg/dL Glucose (74-99) mg/dL POC Glucose (mg/dL) 113 H 197 H (75-99) mg/dL Calcium (8.4-10.2) mg/dL Vancomycin Trough 31.0 H* ug/mL 03/15/21 03/15/21 03/15/21 Range/Units 07:55 11:38 11:57 BUN 59 H (7-17) mg/dL Creatinine 1.31 H (0.52-1.04) mg/dL Glucose 71 L (74-99) mg/dL POC Glucose (mg/dL) 53 L 101 H (75-99) mg/dL Calcium 8.1 L (8.4-10.2) mg/dL Vancomycin Trough ug/mL Assessment and Plan Plan: Assessment: 1. Acute kidney injury mostly prerenal from diuresis and urinary retention. Also concern for vancomycin toxicity. Vancomycin level 31 today. Creatinine 1.31 today. No proteinuria on UA. 2. Urinary retention status post Knight catheter placement. 3. Volume overload intake and on oral Bumex. 4. Acute on chronic diastolic CHF. 5. Hypokalemia from diuresis. Status post placement. Improved. Plan: Maintain oral Bumex 1 mg daily. Dose of vancomycin to be adjusted for renal function. Monitor vancomycin levels closely. Add midodrine. Check morning cortisol level. Avoid nephrotoxins.
[2020-08-27] MEDS ORDERED: MIDODRINE 5 MG TAB PO SCH (12:30)
[2020-08-27 13:54] VITALS: BP 89/56; PULSE 88
[2020-08-27 14:57] VITALS: BMI 50.9
== END 2020-08-27 15:29 | DRG 299 ==
LOC: EC 18:40 → 3SCARD 19:43
PROVIDERS: ADMIT Internal Medicine; ATTEND Internal Medicine
DX: I82.401 Acute embolism and thrombosis of unspecified deep veins of right lower extremity (principal); N17.0 Acute kidney failure with tubular necrosis; J96.11 Chronic respiratory failure with hypoxia; E87.2 Acidosis; L97.122 Non-pressure chronic ulcer of left thigh with fat layer exposed; Z68.43 Body mass index [BMI] 50.0-59.9, adult; I50.32 Chronic diastolic (congestive) heart failure; L89.152 Pressure ulcer of sacral region, stage 2; D63.8 Anemia in other chronic diseases classified elsewhere; I95.9 Hypotension, unspecified; E66.01 Morbid (severe) obesity due to excess calories; I48.0 Paroxysmal atrial fibrillation; E11.622 Type 2 diabetes mellitus with other skin ulcer; J44.9 Chronic obstructive pulmonary disease, unspecified; Z79.4 Long term (current) use of insulin; B94.8 Sequelae of other specified infectious and parasitic diseases; Z20.822 Contact with and (suspected) exposure to COVID-19; K76.0 Fatty (change of) liver, not elsewhere classified; D69.59 Other secondary thrombocytopenia; R16.1 Splenomegaly, not elsewhere classified; E86.0 Dehydration; E87.6 Hypokalemia; T50.1X5A Adverse effect of loop [high-ceiling] diuretics, initial encounter; N13.9 Obstructive and reflux uropathy, unspecified; I08.3 Combined rheumatic disorders of mitral, aortic and tricuspid valves; F41.0 Panic disorder [episodic paroxysmal anxiety]; M54.9 Dorsalgia, unspecified; G89.29 Other chronic pain; K27.9 Peptic ulcer, site unspecified, unspecified as acute or chronic, without hemorrhage or perforation; R33.9 Retention of urine, unspecified; R19.7 Diarrhea, unspecified; M19.90 Unspecified osteoarthritis, unspecified site; R77.8 Other specified abnormalities of plasma proteins; Z79.01 Long term (current) use of anticoagulants; Z79.899 Other long term (current) drug therapy; Z87.01 Personal history of pneumonia (recurrent); Z71.3 Dietary counseling and surveillance; Z98.84 Bariatric surgery status; Z96.653 Presence of artificial knee joint, bilateral; Z90.710 Acquired absence of both cervix and uterus; Z87.42 Personal history of other diseases of the female genital tract; Z90.722 Acquired absence of ovaries, bilateral; Z98.42 Cataract extraction status, left eye; Z98.41 Cataract extraction status, right eye; Z98.890 Other specified postprocedural states; Z88.1 Allergy status to other antibiotic agents; Z88.8 Allergy status to other drugs, medicaments and biological substances; Z91.048 Other nonmedicinal substance allergy status; Z82.49 Family history of ischemic heart disease and other diseases of the circulatory system; Z82.5 Family history of asthma and other chronic lower respiratory diseases; Z82.61 Family history of arthritis; Z81.8 Family history of other mental and behavioral disorders; Z80.1 Family history of malignant neoplasm of trachea, bronchus and lung
CPT/HCPCS: 36415; 71045; 71046; 76700; 78582; 80048; 80053; 80202; 81001; 82565; 83605; 83735; 83880; 84132; 84145; 84484; 85025; 85379; 85610; 85730; 87045; 87046; 87086; 87635; 93005; 93306; 96360; 96361; 99285

== ENCOUNTER 2020-08-28 12:51 | Inpatient (IN) | payer MEDICARE, OTHER ==
[2020-08-28 13:07] LABS: Glucose,Whole Blood 74 mg/dL (75-99)
[2020-08-28] MEDS ORDERED: SODIUM CHLORIDE 0.9% 500 ML 500 ML IV ONE ×2 (13:14→22:16)
[2020-08-28] MEDS: DEXTROSE 50% SYRINGE 50 ML IVP STA ×2 (13:17→21:15)
--- NOTE | 2020-08-28 13:17 | ED ---
General Adult HPI - General Source: patient, EMS, RN notes reviewed, old records reviewed Mode of arrival: EMS Limitations: altered mental status <Iam Sutherland - Last Filed: 08/28/20 16:02> <Kee Boyer - Last Filed: 08/28/20 23:31> - General Chief complaint: Altered Mental Status Stated complaint: Altered Mental Status Time Seen by Provider: 08/28/20 13:00 - History of Present Illness Initial comments: This is a 75-year-old female who presents emergency Department is altered mental status. According to staff at the facility patient was last seen normal yesterday and today when he went into her room the patient was altered significantly they did a blood glucose on her it was 44 and they gave her 1 mg of glucagon. Patient was released from the hospital yesterday. Patient can continues to be altered she is awake but oriented 0 at this time no further history is available from the patient or any staff because no one came with the patient. (Iam Sutherland) - Related Data Home Medications Medication Instructions Recorded Confirmed Flecainide [Tambocor] 50 mg PO BID@0800,1600 10/20/19 08/28/20 Cholecalciferol (Vitamin D3) 125 mcg PO DAILY@0800 07/09/20 08/28/20 [Vitamin D3 (5000 Iu)] Diclofenac Sodium [Voltaren 2 gm TOPICAL QID PRN 07/09/20 08/28/20 Arthritis Pain 1% Gel] Albuterol Inhaler [Ventolin Hfa 2 puff INHALATION RT-Q6H PRN 07/16/20 08/28/20 Inhaler] Ascorbic Acid [Vitamin C] 1,000 mg PO DAILY@1600 08/22/20 08/28/20 Benzonatate [Tessalon Perles] 100 mg PO TID@0800,1200,1700 08/22/20 08/28/20 Bumetanide [BUMEX] 1 mg PO BID@0800,1700 08/22/20 08/28/20 Insulin Aspart [NovoLOG Flexpen] 3 units SQ DAILY@0700 08/22/20 08/28/20 Insulin Aspart [NovoLOG Flexpen] 6 units SQ AC-BID@1100,1600 08/22/20 08/28/20 Insulin Aspart [NovoLOG Flexpen] See Protocol SQ ACHS 08/22/20 08/28/20 Insulin Glargine,Hum.rec.anlog 40 unit SQ HS@199908/22/20 08/28/20 [Lantus Solostar] Magnesium Hydroxide [Milk of 7,200 mg PO Q48H PRN 08/22/20 08/28/20 Magnesia Concentrate] Metoprolol Tartrate [Lopressor] 12.5 mg PO DAILY@0600 08/22/20 08/28/20 Oxymetazoline 0.05% Nasl [place] 2 spray EA NOSTRIL BID@0800,1600 08/22/20 08/28/20 [Afrin 0.05% Nasal [place]] SILVER sulfADIAZINE CREAM 1 applic TOPICAL BID 08/22/20 08/28/20 [Silvadene Cream] Zinc Sulfate [Orazinc] 220 mg PO DAILY@0600 08/22/20 08/28/20 Apixaban [Eliquis] 5 mg PO BID@0600,199908/28/20 08/28/20 Cholestyramine (with Sugar) 4 gm PO BID@0800,1600 08/28/20 08/28/20 [Questran Packet] Melatonin 6 mg PO HS@199908/28/20 08/28/20 Omeprazole 20 mg PO DAILY@0600 08/28/20 08/28/20 Periguard Ointment 1 applic TOPICAL DAILY PRN 08/28/20 08/28/20 Spironolactone [Aldactone] 12.5 mg PO DAILY@0600 08/28/20 08/28/20 Allergies Allergy/AdvReac Type Severity Reaction Status Date / Time adhesive tape Allergy tears skin Verified 08/28/20 15:06 ciprofloxacin [From Cipro] Allergy Rash/Hives Verified 08/28/20 15:06 doxycycline Allergy Rash/Hives Verified 08/28/20 15:06 hydrochlorothiazide Allergy Unknown Verified 08/28/20 15:06 pioglitazone [From Actos] Allergy Swelling Verified 08/28/20 15:06 "HCL" AdvReac Cough Uncoded 08/28/20 15:06 Review of Systems ROS Other: All systems not noted in ROS Statement are negative. <Iam Sutherland - Last Filed: 08/28/20 16:02> ROS Other: All systems not noted in ROS Statement are negative. <Helmreich,Kee N - Last Filed: 08/28/20 23:31> ROS Statement: Those systems with pertinent positive or pertinent negative responses have been documented in the HPI. Past Medical History Past Medical History: Atrial Fibrillation, Heart Failure, Diabetes Mellitus, Osteoarthritis (OA) Additional Past Medical History / Comment(s): states SOB, back pain-receiving physical therapy., has Lap Band (does not think there is fluid in it), [place], See Cardiology [facility] History of Any Multi-Drug Resistant Organisms: None Reported Past Surgical History: Bariatric Surgery, Hysterectomy, Joint Replacement, Orthopedic Surgery Additional Past Surgical History / Comment(s): katie knee replacements,katie knee arthroscopies,katie ovaries removed,lap band placed x 2-"doesn't think there is fluid is present", cataracts. Past Anesthesia/Blood Transfusion Reactions: Previous Problems w/ Anesthesia, Family History of Problems w/ Anesthesia, Motion Sickness Additional Past Anesthesia/Blood Transfusion Reaction / Comment(s): states she was alert when I was getting put under and the tube going into my throat and I panicked, trouble waking up with general anesthesia. mother-ponv Past Psychological History: Depression Smoking Status: Never smoker Past Alcohol Use History: Occasional Past Drug Use History: None Reported - Past Family History Mother Additional Family Medical History / Comment(s): breast,bladder,lung Father Family Medical History: No Reported History <SutherlandIam - Last Filed: 08/28/20 16:02> General Exam Limitations: altered mental status <Iam Sutherland - Last Filed: 08/28/20 16:02> - General Exam Comments Initial Comments: GENERAL: Patient is well-developed and well-nourished. Patient is nontoxic and well- hydrated and is in mild distress. ENT: Neck is soft and supple. No significant lymphadenopathy is noted. Oropharynx is clear. Moist mucous membranes. Neck has full range of motion without eliciting any pain. EYES: The sclera were anicteric and conjunctiva were pink and moist. Extraocular movements were intact and pupils were equal round and reactive to light. Eyelids were unremarkable. PULMONARY: Unlabored respirations. Good breath sounds bilaterally. No audible rales rhonchi or wheezing was noted. CARDIOVASCULAR: Patient is tachycardic at about 100 510 beats a minute. ABDOMEN: Soft and nontender with normal bowel sounds. SKIN: Skin is clear with no lesions or rashes and otherwise unremarkable. NEUROLOGIC: Patient is alert and oriented 0. Cranial nerves II through XII are grossly intact. Motor and sensory are also intact. Normal speech, volume and content. Symmetrical smile. MUSCULOSKELETAL: Normal extremities with adequate strength and full range of motion. 2+ edema bilaterally LYMPHATICS: No significant lymphadenopathy is noted PSYCHIATRIC: Unable to assess (Iam Sutherland) Course Vital Signs 08/28/20 08/28/20 08/28/20 12:56 14:52 15:47 Temperature 99.0 F 100.4 F H Pulse Rate 102 H 105 H 102 H Pulse Rate [ Pulse Oximetery ] Respiratory 18 18 18 Rate Blood Pressure 120/62 115/84 105/86 Blood Pressure [Right Arm] O2 Sat by Pulse 96 97 97 Oximetry 08/28/20 08/28/20 19:49 19:53 Temperature 96.9 F L Pulse Rate Pulse Rate [ 102 H Pulse Oximetery ] Respiratory 22 Rate Blood Pressure Blood Pressure 87/51 105/44 [Right Arm] O2 Sat by Pulse 94 L Oximetry Procedures - Central Line Placement Left IJ Consent Obtained: written consent Patient Placed on Monitor/Pulse Ox: Yes MD Prep: mask, gown, gloves Central Line Prep: Chlorhexidine scrub, sterile drapes applied Local Anesthesia Used: Lidocaine 1% Amount of Anesthesia Used (mls): 2 Ultrasound Used for Placement: Yes Central Line Lumen Inserted: triple Bloods Obtained for Lab: No Central Line Position: good blood return, all ports aspirated, flushed, capped, sutured in place with 3-0 nylon Dressing Applied: Tegaderm Post Procedure X-Ray: other (Tip of central line is in the right subclavian) Patient Tolerated Procedure: well Complications: none <Kee Boyer - Last Filed: 08/28/20 23:31> Medical Decision Making - Lab Data Result diagrams: 08/28/20 13:46 08/28/20 13:46 <Iam Sutherland - Last Filed: 08/28/20 16:02> - Lab Data Result diagrams: 08/28/20 13:46 08/28/20 13:46 <Kee Boyer - Last Filed: 08/28/20 23:31> - Medical Decision Making EKG shows an accelerated junctional rhythm with occasional PVCs on 13 bpm QRS is 98 QT interval is 424 QTC is 51. Patient's EKG shows prolonged QT but there is no significant ST segment elevation or depression Patient remained altered throughout her ED stay. Patient low-grade fever of 100.4. Patient was hypoglycemic and was given D50 upon arrival and did not change her mental status. Chest x-ray showed no acute abnormality. CT of the brain showed no acute abnormality. I spoke with Dr. Betancur he agreed to admit the patient admitted the patient wrote admitting orders. (Iam Sutherland) - Lab Data Lab Results 08/28/20 08/28/20 08/28/20 Range/Units 13:06 13:39 13:46 WBC 10.8 H (3.8-10.6) k/uL RBC 4.69 (3.80-5.40) m/uL Hgb 11.6 (11.4-16.0) gm/dL Hct 38.6 (34.0-46.0) % MCV 82.3 (80.0-100.0) fL MCH 24.7 L (25.0-35.0) pg MCHC 30.0 L (31.0-37.0) g/dL RDW 24.2 H (11.5-15.5) % Plt Count 202 D (150-450) k/uL MPV 7.1 Neutrophils % DIRECTOR OF LEARNING Neutrophils % (Manual) 81 % Band Neuts % (Manual) 3 % Lymphocytes % DIRECTOR OF LEARNING Lymphocytes % (Manual) 9 % Monocytes % DIRECTOR OF LEARNING Monocytes % (Manual) 4 % Eosinophils % DIRECTOR OF LEARNING Eosinophils % (Manual) 1 % Basophils % DIRECTOR OF LEARNING Metamyelocytes % 3 % Neutrophils # DIRECTOR OF LEARNING Neutrophils # (Manual) 9.00 H (1.3-7.7) k/uL Lymphocytes # DIRECTOR OF LEARNING Lymphocytes # (Manual) 0.97 L (1.0-4.8) k/uL Monocytes # DIRECTOR OF LEARNING Monocytes # (Manual) 0.43 (0-1.0) k/uL Eosinophils # DIRECTOR OF LEARNING Eosinophils # (Manual) 0.11 (0-0.7) k/uL Basophils # DIRECTOR OF LEARNING Metamyelocytes # (Man) 0.32 H (0) k/uL Nucleated RBCs 0 (0-0) /100 WBC Polychromasia Present Hypochromasia Marked Poikilocytosis Slight Anisocytosis Marked Microcytosis Moderate PT (9.0-12.0) sec INR (<1.2) APTT (22.0-30.0) sec Sodium (137-145) mmol/L Potassium (3.5-5.1) mmol/L Chloride (98-107) mmol/L Carbon Dioxide (22-30) mmol/L Anion Gap mmol/L BUN (7-17) mg/dL Creatinine (0.52-1.04) mg/dL Est GFR (CKD-EPI)AfAm (>60 ml/min/1.73 sqM) Est GFR (CKD-EPI)NonAf (>60 ml/min/1.73 sqM) Glucose (74-99) mg/dL POC Glucose (mg/dL) 74 L 149 H (75-99) mg/dL POC Glu Last Sorter ID Ailyn Sahu Tammy Calcium (8.4-10.2) mg/dL Total Bilirubin (0.2-1.3) mg/dL AST (14-36) U/L ALT (4-34) U/L Alkaline Phosphatase (38-126) U/L Troponin I (0.000-0.034) ng/mL Total Protein (6.3-8.2) g/dL Albumin (3.5-5.0) g/dL Urine Color Urine Appearance (Clear) Urine pH (5.0-8.0) Ur Specific Noel (1.001-1.035) Urine Protein (Negative) Urine Glucose (UA) (Negative) Urine Ketones (Negative) Urine Blood (Negative) Urine Nitrite (Negative) Urine Bilirubin (Negative) Urine Urobilinogen (<2.0) mg/dL Ur Leukocyte Esterase (Negative) Urine RBC (0-5) /hpf Urine WBC (0-5) /hpf Ur Squamous Epith Cells (0-4) /hpf Urine Bacteria (None) /hpf Hyaline Casts (0-2) /lpf Urine Mucus (None) /hpf Urine Opiates Screen (NotDetected) Ur Oxycodone Screen (NotDetected) Urine Methadone Screen (NotDetected) Ur Propoxyphene Screen (NotDetected) Ur Barbiturates Screen (NotDetected) U Tricyclic Antidepress (NotDetected) Ur Phencyclidine Scrn (NotDetected) Ur Amphetamines Screen (NotDetected) U Methamphetamines Scrn (NotDetected) U Benzodiazepines Scrn (NotDetected) Urine Cocaine Screen (NotDetected) U Marijuana (THC) Screen (NotDetected) 08/28/20 08/28/20 08/28/20 Range/Units 13:46 13:46 13:46 WBC (3.8-10.6) k/uL RBC (3.80-5.40) m/uL Hgb (11.4-16.0) gm/dL Hct (34.0-46.0) % MCV (80.0-100.0) fL MCH (25.0-35.0) pg MCHC (31.0-37.0) g/dL RDW (11.5-15.5) % Plt Count (150-450) k/uL MPV Neutrophils % Neutrophils % (Manual) % Band Neuts % (Manual) % Lymphocytes % Lymphocytes % (Manual) % Monocytes % Monocytes % (Manual) % Eosinophils % Eosinophils % (Manual) % Basophils % Metamyelocytes % % Neutrophils # Neutrophils # (Manual) (1.3-7.7) k/uL Lymphocytes # Lymphocytes # (Manual) (1.0-4.8) k/uL Monocytes # Monocytes # (Manual) (0-1.0) k/uL Eosinophils # Eosinophils # (Manual) (0-0.7) k/uL Basophils # Metamyelocytes # (Man) (0) k/uL Nucleated RBCs (0-0) /100 WBC Polychromasia Hypochromasia Poikilocytosis Anisocytosis Microcytosis PT (9.0-12.0) sec INR (<1.2) APTT (22.0-30.0) sec Sodium 137 (137-145) mmol/L Potassium 3.7 (3.5-5.1) mmol/L Chloride 101 (98-107) mmol/L Carbon Dioxide 29 (22-30) mmol/L Anion Gap 7 mmol/L BUN 56 H (7-17) mg/dL Creatinine 1.19 H (0.52-1.04) mg/dL Est GFR (CKD-EPI)AfAm 52 (>60 ml/min/1.73 sqM) Est GFR (CKD-EPI)NonAf 45 (>60 ml/min/1.73 sqM) Glucose 144 H (74-99) mg/dL POC Glucose (mg/dL) (75-99) mg/dL POC Glu Last Sorter ID Calcium 7.9 L (8.4-10.2) mg/dL Total Bilirubin 1.5 H (0.2-1.3) mg/dL AST 64 H (14-36) U/L ALT 78 H (4-34) U/L Alkaline Phosphatase 258 H (38-126) U/L Troponin I 0.156 H* (0.000-0.034) ng/mL Total Protein 5.2 L (6.3-8.2) g/dL Albumin 2.0 L (3.5-5.0) g/dL Urine Color Yellow Urine Appearance Clear (Clear) Urine pH 5.5 (5.0-8.0) Ur Specific Noel 1.011 (1.001-1.035) Urine Protein Trace H (Negative) Urine Glucose (UA) Negative (Negative) Urine Ketones Negative (Negative) Urine Blood Small H (Negative) Urine Nitrite Negative (Negative) Urine Bilirubin Negative (Negative) Urine Urobilinogen <2.0 (<2.0) mg/dL Ur Leukocyte Esterase Trace H (Negative) Urine RBC 10 H (0-5) /hpf Urine WBC 10 H (0-5) /hpf Ur Squamous Epith Cells <1 (0-4) /hpf Urine Bacteria Rare H (None) /hpf Hyaline Casts 4 H (0-2) /lpf Urine Mucus Rare H (None) /hpf Urine Opiates Screen Detected H (NotDetected) Ur Oxycodone Screen Not Detected (NotDetected) Urine Methadone Screen Not Detected (NotDetected) Ur Propoxyphene Screen Not Detected (NotDetected) Ur Barbiturates Screen Not Detected (NotDetected) U Tricyclic Antidepress Not Detected (NotDetected) Ur Phencyclidine Scrn Not Detected (NotDetected) Ur Amphetamines Screen Not Detected (NotDetected) U Methamphetamines Scrn Not Detected (NotDetected) U Benzodiazepines Scrn Not Detected (NotDetected) Urine Cocaine Screen Not Detected (NotDetected) U Marijuana (THC) Screen Not Detected (NotDetected) 08/28/20 08/28/20 Range/Units 14:53 15:02 WBC (3.8-10.6) k/uL RBC (3.80-5.40) m/uL Hgb (11.4-16.0) gm/dL Hct (34.0-46.0) % MCV (80.0-100.0) fL MCH (25.0-35.0) pg MCHC (31.0-37.0) g/dL RDW (11.5-15.5) % Plt Count (150-450) k/uL MPV Neutrophils % Neutrophils % (Manual) % Band Neuts % (Manual) % Lymphocytes % Lymphocytes % (Manual) % Monocytes % Monocytes % (Manual) % Eosinophils % Eosinophils % (Manual) % Basophils % Metamyelocytes % % Neutrophils # Neutrophils # (Manual) (1.3-7.7) k/uL Lymphocytes # Lymphocytes # (Manual) (1.0-4.8) k/uL Monocytes # Monocytes # (Manual) (0-1.0) k/uL Eosinophils # Eosinophils # (Manual) (0-0.7) k/uL Basophils # Metamyelocytes # (Man) (0) k/uL Nucleated RBCs (0-0) /100 WBC Polychromasia Hypochromasia Poikilocytosis Anisocytosis Microcytosis PT 12.7 H (9.0-12.0) sec INR 1.2 H (<1.2) APTT 28.1 (22.0-30.0) sec Sodium (137-145) mmol/L Potassium (3.5-5.1) mmol/L Chloride (98-107) mmol/L Carbon Dioxide (22-30) mmol/L Anion Gap mmol/L BUN (7-17) mg/dL Creatinine (0.52-1.04) mg/dL Est GFR (CKD-EPI)AfAm (>60 ml/min/1.73 sqM) Est GFR (CKD-EPI)NonAf (>60 ml/min/1.73 sqM) Glucose (74-99) mg/dL POC Glucose (mg/dL) 108 H (75-99) mg/dL POC Glu Last Sorter ID Rebeca, Kaylee Calcium (8.4-10.2) mg/dL Total Bilirubin (0.2-1.3) mg/dL AST (14-36) U/L ALT (4-34) U/L Alkaline Phosphatase (38-126) U/L Troponin I (0.000-0.034) ng/mL Total Protein (6.3-8.2) g/dL Albumin (3.5-5.0) g/dL Urine Color Urine Appearance (Clear) Urine pH (5.0-8.0) Ur Specific Noel (1.001-1.035) Urine Protein (Negative) Urine Glucose (UA) (Negative) Urine Ketones (Negative) Urine Blood (Negative) Urine Nitrite (Negative) Urine Bilirubin (Negative) Urine Urobilinogen (<2.0) mg/dL Ur Leukocyte Esterase (Negative) Urine RBC (0-5) /hpf Urine WBC (0-5) /hpf Ur Squamous Epith Cells (0-4) /hpf Urine Bacteria (None) /hpf Hyaline Casts (0-2) /lpf Urine Mucus (None) /hpf Urine Opiates Screen (NotDetected) Ur Oxycodone Screen (NotDetected) Urine Methadone Screen (NotDetected) Ur Propoxyphene Screen (NotDetected) Ur Barbiturates Screen (NotDetected) U Tricyclic Antidepress (NotDetected) Ur Phencyclidine Scrn (NotDetected) Ur Amphetamines Screen (NotDetected) U Methamphetamines Scrn (NotDetected) U Benzodiazepines Scrn (NotDetected) Urine Cocaine Screen (NotDetected) U Marijuana (THC) Screen (NotDetected) Disposition Time of Disposition: 16:01 <Iam Sutherland - Last Filed: 08/28/20 16:02> <Kee Boyer - Last Filed: 08/28/20 23:31> Clinical Impression: Altered mental status, Hypoglycemia, Fever Disposition: ADMITTED IP TO THIS HOSP
[2020-08-28 13:42] LABS: Glucose,Whole Blood 149 mg/dL (75-99)
[2020-08-28 14:08] LABS: Appearance,Urine Clear (Clear); Bacteria,Urine Rare /hpf; Bilirubin,Urine Negative (Negative); Blood,Urine Small (Negative); Color,Urine Yellow; Glucose,Urine (UA) Negative (Negative); Hyaline Casts,Urine 4 /lpf (0-2); Ketones,Urine Negative (Negative); Leukocyte Esterase,Urine Trace (Negative); Mucus,Urine Rare /hpf; Nitrite,Urine Negative (Negative); PH, Urine 5.5 (5.0-8.0); Protein,Urine Trace (Negative); RBC,Urine 10 /hpf (0-5); Specific Gravity,Urine 1.011 (1.001-1.035); Squamous Epithelial Cell,Urine <1 /hpf (0-4); Urobilinogen,Urine <2.0 mg/dL (<2.0); WBC,Urine 10 /hpf (0-5)
[2020-08-28 14:09] LABS: Calcium 7.9 mg/dL (8.4-10.2); Potassium 3.7 mmol/L (3.5-5.1); Total Bilirubin 1.5 mg/dL (0.2-1.3); Total Protein 5.2 g/dL (6.3-8.2)
[2020-08-28 14:15] LABS: Amphetamine Screen,Urine Not Detected (NotDetected); Barbiturate Screen,Urine Not Detected (NotDetected); Benzodiazepines Screen,Urine Not Detected (NotDetected); Cocaine Screen,Urine Not Detected (NotDetected); Methadone Screen, Urine Not Detected (NotDetected); Opiate Screen,Urine Detected (NotDetected); Oxycodone Screen, Urine Not Detected (NotDetected); Phencyclidine Screen,Urine Not Detected (NotDetected); Tricyclic Antidepressant,Urine Not Detected (NotDetected); Urn Cannabinoid Scrn Not Detected (NotDetected)
--- NOTE | 2020-08-28 14:32 | XR ---
EXAMINATION TYPE: XR chest 2V DATE OF EXAM: 08/28/2020 COMPARISON: 08/25/2020 TECHNIQUE: PA and lateral views submitted. HISTORY: Mental status FINDINGS: Heart is enlarged and there is a diffuse interstitial pattern. Limited inspiration with elevated righ t hemidiaphragm. No pneumothorax. No pleural effusion. IMPRESSION: 1. Cardiomegaly with diffuse interstitial pattern similar to the prior exam most likely in the basis of pulmonary fibrosis. Correlate clinically to exclude other etiologies including interstitial pneumo nitis.
--- NOTE | 2020-08-28 14:37 | CT ---
EXAMINATION TYPE: CT brain wo con DATE OF EXAM: 08/28/2020 COMPARISON: 08/07/2009 HISTORY: altered mental status CT DLP: 1099.4 mGycm Automated exposure control for dose reduction was used. FINDINGS: Mild generalized degenerative change. Faint low-attenuation the white matter is nonspecific. Intracra nial atherosclerotic changes are seen. No acute hemorrhage. No midline shift or mass effect. Calvarium intact. Orbits are symmetric. No significant changes of sinusitis. Craniocervical junction maintained. IMPRESSION: DEGENERATIVE AND NONSPECIFIC WHITE MATTER CHANGES MOST TYPICAL OF REMOTE WHITE MATTER ISCHEMIA. NO WA DLINE SHIFT OR MASS EFFECT.
[2020-08-28 14:42] LABS: Anisocytosis Marked; HCT 38.6 % (34.0-46.0); HGB 11.6 gm/dL (11.4-16.0); Hypochromasia Marked; MCH 24.7 pg (25.0-35.0); MCV 82.3 fL (80.0-100.0); Mean Platelet Volume 7.1; Microcytosis Moderate; Poikilocytosis Slight; RBC 4.69 m/uL (3.80-5.40); RDW 24.2 % (11.5-15.5); WBC 10.8 k/uL (3.8-10.6)
[2020-08-28 14:46] LABS: Platelet Count 202 k/uL (150-450)
[2020-08-28 15:01] LABS: Band Neutrophils % 3 %; Eosinophils # (M) 0.11 k/uL (0-0.7); Lymphocytes # (M) 0.97 k/uL (1.0-4.8); Metamyelocytes # (M) 0.32 k/uL (0); Metamyelocytes % 3 %; Monocytes # (M) 0.43 k/uL (0-1.0); Neutrophils % (M) 81 %; Nucleated Red Blood Cells 0 /100 WBC (0-0); Polychromasia Present; Total Cells Counted 200
[2020-08-28 15:04] LABS: Glucose,Whole Blood 108 mg/dL (75-99)
[2020-08-28 15:54] LABS: INR 1.2 (<1.2); Partial Thromboplastin Time 28.1 sec (22.0-30.0); Prothrombin Time 12.7 sec (9.0-12.0)
[2020-08-28] MEDS ORDERED: ACETAMINOPHEN SUPPOSITORY 650 MG SUPP RECTAL STA (15:58)
[2020-08-28] MEDS ORDERED: NITROGLYCERIN SL TABS 0.4 MG TAB SUBLINGUAL PRN (16:22)
[2020-08-28] MEDS ORDERED: HYDROmorphone 0.5 MG/0.5 ML SYRINGE IVP STA (20:18)
[2020-08-28] MEDS ORDERED: DICLOFENAC SODIUM GEL 100 GM TUBE TOPICAL PRN (20:36)
[2020-08-28] MEDS ORDERED: MAGNESIUM HYDROXIDE 2,400 MG/10 ML CUP PO PRN (20:36)
[2020-08-28] MEDS ORDERED: PERIGUARD TOPICAL PRN (20:36)
[2020-08-28 21:11] LABS: Glucose,Whole Blood 64 mg/dL (75-99)
[2020-08-28] MEDS ORDERED: DEXTROSE 50% SYRINGE 50 ML IVP ONE (21:11)
[2020-08-28 21:31] LABS: Glucose,Whole Blood 103 mg/dL (75-99)
[2020-08-28 22:10] LABS: Glucose,Whole Blood 102 mg/dL (75-99)
[2020-08-28] MEDS ORDERED: SODIUM CHLORIDE 0.9% 1,000 ML IV ONE (22:16)
[2020-08-28] MEDS ORDERED: VANCOMYCIN IV PER PHARMACY 1 EACH MISC MISCELLANE PRN (22:18)
[2020-08-28] MEDS: NOREPINEPHRINE 4 MG in SODIUM CHLORIDE 0.9% 250 ML IV SCH (22:37)
[2020-08-28] MEDS ORDERED: VANCOMYCIN 2,000 MG in SODIUM CHLORIDE 0.9% 500 ML 500 ML IVPB ONE (23:00)
--- NOTE | 2020-08-28 23:25 | P.EN ---
A team called on this patient due to hypotension , and worsening mental status 75 year old female ( h/o peptic ulcer disease, DM, chronic pressure ulcer, diastolic CHF, chronic hypoxic respiratory failure on supplemental oxygen 2/2 COVID infection ) recently discharged from hospital (after prolonged hospitalization) to custodial (she was treated for MADELEINE, new DVT, and ACS ruled out ) per her , she was awake and oriented up until last night when he was with her. this morning she had an acute change in her mental status at the custodial, and her blood sugar found to be 44 gm/dl. for which she was sent to the hospital . otherwise, per her , he is not aware of any new complaint , or changes in her meds. her labs reviewed and overall showed no significant changes compared to when she was discharged yesterday. CT brain and CXR showed no new acute pathology. patient is confused, moaning , does not make eye contact, does not follow commands. she seems to be protecting airways for now. BP 70s /40s despite 1.5 L normal saline boluses. tachycardia HR 120s, oxygen sat in mid 90s. blood sugar now low 100 lungs decrease breath sounds at lung basis, difficult to assess, patient moaning and her body habitus heart normal s1 s2 , tachycardia trace bilateral peripheral edema , chronic skin changes over bilateral lower legs chronic bean cath , present on admission abdomen , obese limiting exam, soft overall patient had low grade fever, and leukocytosis assessment possible septic shock , unknown primary infection acute metabolic enchephalopathy chronic hypoxic respiratory failure on supplemental oxygen post fluid resuscitation , lactic acid 2.0 ammonia level <9 elevated liver enzymes elevated creatinine elevated but stable troponin continue supportive care check urine cultures, blood cultures start empiric antibiotics vanc and zosyn check liver US transfer patient to ICU , close monitoring central line to be inserted by ED doc, for possible need of pressors hydrocortison IV patient NO CODE case discussed with Dr Rome patient at bedside, updates and question s answered 45 minutes spent in critical service in the care of this patient
--- NOTE | 2020-08-28 23:35 | XR ---
EXAMINATION TYPE: XR chest 1V portable DATE OF EXAM: 08/28/2020 COMPARISON: Today HISTORY: Altered mental status. Short of breath. There is left jugular catheter with the tip in the superior vena cava. The catheter is pointing super iorly. There is pulmonary interstitial and airspace edema. Heart is enlarged. IMPRESSION: There is moderate pulmonary edema unchanged compared to the exam 9 hours ago.
[2020-08-28 23:51] LABS: Glucose,Whole Blood 89 mg/dL (75-99)
[2020-08-29] MEDS: HYDROCORTISONE SUCCINATE 100 MG/2 ML VIAL IV SCH ×4 (00:30→23:43)
[2020-08-29 05:25] LABS: Glucose,Whole Blood 107 mg/dL (75-99)
[2020-08-29 05:27] LABS: Anisocytosis Marked; Basophils # (A) 0.1 k/uL (0-0.2); Basophils % (A) 1 %; Eosinophils % (A) 0 %; HCT 38.9 % (34.0-46.0); Hypochromasia Marked; Lymphocytes # (A) 1.8 k/uL (1.0-4.8); Lymphocytes % (A) 14 %; MCH 25.7 pg (25.0-35.0); MCHC 30.9 g/dL (31.0-37.0); MCV 83.2 fL (80.0-100.0); Mean Platelet Volume 7.5; Microcytosis Moderate; Monocytes # (A) 0.8 k/uL (0-1.0); Monocytes % (A) 6 %; Neutrophils # (A) 9.8 k/uL (1.3-7.7); Neutrophils % (A) 76 %; Platelet Count 295 k/uL (150-450); Poikilocytosis Slight; RBC 4.68 m/uL (3.80-5.40); RDW 24.8 % (11.5-15.5); WBC 12.9 k/uL (3.8-10.6)
[2020-08-29 05:40] LABS: Cholesterol 145 mg/dL (<200); HDL Cholesterol 15 mg/dL (40-60); LDL Cholesterol,Calculated 105 mg/dL (0-99); Triglycerides 126 mg/dL (<150)
[2020-08-29 05:41] LABS: Albumin 2.1 g/dL (3.5-5.0); Calcium 7.7 mg/dL (8.4-10.2); Total Bilirubin 1.7 mg/dL (0.2-1.3); Total Protein 5.4 g/dL (6.3-8.2)
[2020-08-29] MEDS ORDERED: APIXABAN 5 MG TAB PO SCH (06:00)
[2020-08-29] MEDS ORDERED: SPIRONOLACTONE 25 MG TAB PO SCH (06:00)
[2020-08-29] MEDS ORDERED: PANTOPRAZOLE 40 MG TABLET PO SCH (06:00)
[2020-08-29] MEDS ORDERED: ZINC SULFATE 220 MG CAP PO SCH (06:00)
[2020-08-29] MEDS ORDERED: Potassium Replacement Protocol 1 EACH MISC MISCELLANE PRN (06:03)
[2020-08-29] MEDS: INSULIN ASPART (NovoLOG) 100 UNIT/ML VIAL SQ SCH ×7 (06:24→21:38)
[2020-08-29] MEDS: PANTOPRAZOLE 40 MG TABLET PO SCH (06:24)
[2020-08-29] MEDS: POTASSIUM CHLORIDE 20 MEQ in WATER FOR INJECTION 1 100ML.BAG IVPB SCH ×2 (06:24→10:41)
[2020-08-29] MEDS: PIPERACILLIN-TAZOBACTAM 3.375 GM in SODIUM CHLORIDE 0.9% 100 ML IVPB SCH ×3 (06:24→21:39)
[2020-08-29] MEDS ORDERED: ASPIRIN 325 MG TAB PO SCH (09:00)
[2020-08-29] MEDS: BUMETANIDE 1 MG TAB PO SCH ×2 (09:47→17:30)
[2020-08-29] MEDS: FLECAINIDE 50 MG TAB PO SCH ×2 (09:47→17:29)
[2020-08-29] MEDS: CHOLECALCIFEROL 25 MCG (1000 IU) TABLET PO SCH (09:47)
[2020-08-29] MEDS: CHOLESTYRAMINE (WITH SUGAR) 4 GM PACKET PO SCH ×2 (09:47→17:29)
[2020-08-29] MEDS: OXYMETAZOLINE 0.05% NASL SPRAY 1 SPRAY BOTTLE EA NOSTRIL SCH ×2 (09:47→17:29)
[2020-08-29] MEDS: BENZONATATE 100 MG CAP PO SCH ×3 (09:47→17:30)
--- NOTE | 2020-08-29 10:30 | P.CNPUL ---
History of Present Illness Consult date: 08/29/20 Requesting physician: Ld Betancur Reason for consult: other Chief complaint: Mental status changes, hypoglycemia, hypotension. History of present illness: 75-year-old female, who presents to the emergency department, on August 28, at 12:51 PM, with mental status changes. The patient was brought in from one of the local nursing homes. The patient was recently in the hospital between August 22, and August 27. The patient apparently was found to have hypoglycemia, with a blood sugar of 44, and she received 1 ampule of glucagon. I was notified by the on-call hospitalist, that the patient was hypotensive, looking very poorly, and had in addition to hypoglycemia, had hypotension. She received a couple liters of fluid and I agreed to have the patient transferred to the intensive care unit. Initially, the patient was on norepinephrine, but that has been turned off. This is a patient well-known to our service. She was previously inpatient between July 16 and August 13, with an episode of coronavirus infection. Currently, she is on 4 L nasal cannula, and saline at 20 mL an hour. She is much more awake and alert, and as I mentioned, the norepinephrine has been weaned off. White count is 12.9, hemoglobin 12, hematocrit 38.9, and platelet count 295,000. Sodium 140, calcium 3, chlorides 105, CO2 29, anion gap 6, with a BUN of 51, and a creatinine of 1.20. The troponin was 0.3, and calcium of 7.7. Chest x-ray showed evidence of cardiomegaly, with a diffuse interstitial pattern, consistent with pulmonary fibrosis. This is probably most consistent with a residual from her recent COVID 19 pneumonia. Review of Systems REVIEW OF SYSTEMS: CONSTITUTIONAL: [Negative.] NEUROLOGIC: Acute mental status changes. HEENT: [ Negative.] CARDIAC: Hypotension, resolved. PULMONARY: [Negative.] GI: [Negative.] : [Negative.] RHEUMATOLOGIC: [ Negative.] IMMUNOLOGIC: [ Negative.] ENDOCRINE: [Negative. ] DERMATOLOGIC: [Negative.] Past Medical History Past Medical History: Atrial Fibrillation, Heart Failure, Diabetes Mellitus, Osteoarthritis (OA) Additional Past Medical History / Comment(s): states SOB, back pain-receiving physical therapy., has Lap Band (does not think there is fluid in it), [place], See [facility] History of Any Multi-Drug Resistant Organisms: None Reported Past Surgical History: Bariatric Surgery, Hysterectomy, Joint Replacement, Orthopedic Surgery Additional Past Surgical History / Comment(s): katie knee replacements,katie knee arthroscopies,katie ovaries removed,lap band placed x 2-"doesn't think there is fluid is present", cataracts. Past Anesthesia/Blood Transfusion Reactions: Previous Problems w/ Anesthesia, Family History of Problems w/ Anesthesia, Motion Sickness Additional Past Anesthesia/Blood Transfusion Reaction / Comment(s): states she was alert when I was getting put under and the tube going into my throat and I panicked, trouble waking up with general anesthesia. mother-ponv Past Psychological History: Depression Additional Psychological History / Comment(s): past depression-denies problem now. Smoking Status: Never smoker Past Alcohol Use History: Occasional Past Drug Use History: None Reported Additional Drug Use History / Comment(s): HX OF CBD OIL USE. - Past Family History Mother Additional Family Medical History / Comment(s): breast,bladder,lung Father Family Medical History: No Reported History Medications and Allergies Home Medications Medication Instructions Recorded Confirmed Type Flecainide [Tambocor] 50 mg PO BID@0800,1600 10/20/19 08/28/20 History Cholecalciferol (Vitamin D3) 125 mcg PO DAILY@0800 07/09/20 08/28/20 History [Vitamin D3 (5000 Iu)] Diclofenac Sodium [Voltaren 2 gm TOPICAL QID PRN 07/09/20 08/28/20 History Arthritis Pain 1% Gel] Albuterol Inhaler [Ventolin Hfa 2 puff INHALATION RT-Q6H PRN 07/16/20 08/28/20 History Inhaler] Ascorbic Acid [Vitamin C] 1,000 mg PO DAILY@1600 08/22/20 08/28/20 History Benzonatate [Tessalon Perles] 100 mg PO TID@0800,1200,1700 08/22/20 08/28/20 History Bumetanide [BUMEX] 1 mg PO BID@0800,1700 08/22/20 08/28/20 History Insulin Aspart [NovoLOG Flexpen] 3 units SQ DAILY@0700 08/22/20 08/28/20 History Insulin Aspart [NovoLOG Flexpen] 6 units SQ AC-BID@1100,1600 03/10/21 03/16/21 History Insulin Aspart [NovoLOG Flexpen] See Protocol SQ ACHS 08/22/20 08/28/20 History Insulin Glargine,Hum.rec.anlog 40 unit SQ HS@199908/22/20 08/28/20 History [Lantus Solostar] Magnesium Hydroxide [Milk of 7,200 mg PO Q48H PRN 08/22/20 08/28/20 History Magnesia Concentrate] Metoprolol Tartrate [Lopressor] 12.5 mg PO DAILY@0600 08/22/20 08/28/20 History Oxymetazoline 0.05% Nasl [place] 2 spray EA NOSTRIL BID@0800,1600 08/22/20 08/28/20 History [Afrin 0.05% Nasal [place]] SILVER sulfADIAZINE CREAM 1 applic TOPICAL BID 08/22/20 08/28/20 History [Silvadene Cream] Zinc Sulfate [Orazinc] 220 mg PO DAILY@0600 08/22/20 08/28/20 History Apixaban [Eliquis] 5 mg PO BID@0600,199908/28/20 08/28/20 History Cholestyramine (with Sugar) 4 gm PO BID@0800,1600 08/28/20 08/28/20 History [Questran Packet] Melatonin 6 mg PO HS@199908/28/20 08/28/20 History Omeprazole 20 mg PO DAILY@0600 08/28/20 08/28/20 History Periguard Ointment 1 applic TOPICAL DAILY PRN 08/28/20 08/28/20 History Spironolactone [Aldactone] 12.5 mg PO DAILY@0600 08/28/20 08/28/20 History Allergies Allergy/AdvReac Type Severity Reaction Status Date / Time adhesive tape Allergy tears skin Verified 08/28/20 15:06 ciprofloxacin [From Cipro] Allergy Rash/Hives Verified 08/28/20 15:06 doxycycline Allergy Rash/Hives Verified 08/28/20 15:06 hydrochlorothiazide Allergy Unknown Verified 08/28/20 15:06 pioglitazone [From Actos] Allergy Swelling Verified 08/28/20 15:06 "HCL" AdvReac Cough Uncoded 08/28/20 15:06 Physical Exam Osteopathic Statement: *. No significant issues noted on an osteopathic structural exam other than those noted in the History and Physical/Consult. Vitals: Vital Signs Temp Pulse Pulse Resp BP BP Pulse Ox 08/29/20 09:45 101 H 22 99/87 08/29/20 09:30 92 17 106/90 08/29/20 09:15 103 H 12 102/85 91 L 08/29/20 09:00 96 16 85/61 95 08/29/20 08:45 83 13 95/68 94 L 08/29/20 08:30 98 19 95/49 08/29/20 08:15 82 16 119/92 98 08/29/20 08:00 89 15 107/69 99 08/29/20 07:45 24 81/58 89 L 08/29/20 07:30 76 16 120/96 99 08/29/20 07:15 89 10 L 131/81 96 08/29/20 07:00 79 20 110/73 96 08/29/20 06:51 85/49 08/29/20 06:45 76 11 L 110/60 97 08/29/20 06:30 80 14 117/60 99 08/29/20 06:15 76 20 113/67 96 08/29/20 06:00 82 17 112/67 98 08/29/20 05:45 94 17 85/69 98 08/29/20 05:30 80 19 127/65 96 08/29/20 05:15 82 14 92/71 98 08/29/20 05:00 91 11 L 111/92 95 08/29/20 04:45 83 18 116/82 100 08/29/20 04:30 84 16 98 08/29/20 04:15 76 14 117/76 97 08/29/20 04:00 98.3 F 88 28 H 117/81 98 08/29/20 03:45 92 20 120/70 96 08/29/20 03:30 80 14 126/66 97 08/29/20 03:15 91 13 95 08/29/20 03:00 84 24 112/79 95 08/29/20 02:45 81 16 112/71 98 08/29/20 02:30 103 H 19 114/73 97 08/29/20 02:15 99 11 L 120/62 92 L 08/29/20 02:00 85 27 H 116/79 100 08/29/20 01:45 76 10 L 115/54 08/29/20 01:30 95 14 115/58 96 08/29/20 01:15 78 21 110/62 08/29/20 01:00 81 17 109/55 95 08/29/20 00:45 90 21 119/55 97 08/29/20 00:30 84 31 H 116/61 98 08/29/20 00:20 85 17 116/61 98 08/29/20 00:15 89 15 124/65 97 08/29/20 00:00 98.1 F 92 17 97 08/28/20 23:47 91 17 08/28/20 23:25 80 104/59 08/28/20 23:20 78 102/88 08/28/20 23:15 87 103/80 08/28/20 23:10 98 108/70 08/28/20 23:05 93 111/59 08/28/20 23:00 88 107/92 08/28/20 22:55 86 96/68 08/28/20 22:50 86 107/68 08/28/20 22:45 88 113/65 08/28/20 22:40 82 104/82 08/28/20 22:35 89 95/78 08/28/20 22:30 92 90/52 08/28/20 22:25 84/54 08/28/20 22:20 78/41 08/28/20 22:15 88/59 08/28/20 19:53 105/44 08/28/20 19:49 96.9 F L 102 H 22 87/51 94 L 08/28/20 15:47 100.4 F H 102 H 18 105/86 97 08/28/20 14:52 105 H 18 115/84 97 08/28/20 12:56 99.0 F 102 H 18 120/62 96 Intake and Output 08/28/20 08/29/20 08/29/20 22:59 06:59 14:59 Intake Total 2340 229.392 Output Total 950 350 60 Balance -950 1989 169.392 Intake: IV 100 20 0.9 @ 20 mL/hr 100 20 Intake, IV Titration 1999 209.392 Amount Norepinephrine 4 mg In 209.392 Sodium Chloride 0.9% 250 ml @ 0.05 MCG/KG/MIN 24. 022 mls/hr IV .[id number] [facility] Rx#:[id number] Sodium Chloride 0.9% 1, 2000 000 ml @ 999 mls/hr IV . Q1H1M ONE Rx#:[id number] Oral 240 Output: Urine 950 350 60 Other: Voiding Method Indwelling Catheter Weight 126.099 kg No acute distress, oriented 3. Currently, on 4 L nasal cannula. HEENT examination is grossly unremarkable. Mucous membranes are dry. No oral lesions. Neck supple. Full range of motion. No adenopathy thyromegaly or neck vein distention. Cardiovascular examination reveals regular rhythm rate. S1-S2 normal. No S3 or S4. No discernible murmur noted. Heart rate 101. Lungs reveal bilateral rhonchi, as well as some bibasilar crackles. Breath sounds equal. Abdomen soft bowel sounds are heard. No masses or tenderness. Extremities are intact. No cyanosis or clubbing, but there is some mild edema. Skin is without rash or lesion. Neurologic examination is brief but nonfocal. Results - Laboratory Findings CBC and BMP: 08/29/20 05:00 08/29/20 05:00 PT/INR, D-dimer PT 12.7 sec (9.0-12.0) H 08/28/20 14:53 INR 1.2 (<1.2) H 08/28/20 14:53 Abnormal lab findings: Abnormal Labs 08/28/20 08/28/20 08/28/20 13:06 13:39 13:46 WBC 10.8 H MCH 24.7 L MCHC 30.0 L RDW 24.2 H Neutrophils # Neutrophils # (Manual) 9.00 H Lymphocytes # (Manual) 0.97 L Metamyelocytes # (Man) 0.32 H PT INR Potassium BUN Creatinine Glucose POC Glucose (mg/dL) 74 L 149 H Calcium Total Bilirubin AST ALT Alkaline Phosphatase Troponin I Total Protein Albumin LDL Cholesterol, Calc HDL Cholesterol Urine Protein Urine Blood Ur Leukocyte Esterase Urine RBC Urine WBC Urine Bacteria Hyaline Casts Urine Mucus Urine Opiates Screen 08/28/20 08/28/20 08/28/20 13:46 13:46 13:46 WBC MCH MCHC RDW Neutrophils # Neutrophils # (Manual) Lymphocytes # (Manual) Metamyelocytes # (Man) PT INR Potassium BUN 56 H Creatinine 1.19 H Glucose 144 H POC Glucose (mg/dL) Calcium 7.9 L Total Bilirubin 1.5 H AST 64 H ALT 78 H Alkaline Phosphatase 258 H Troponin I 0.156 H* Total Protein 5.2 L Albumin 2.0 L LDL Cholesterol, Calc HDL Cholesterol Urine Protein Trace H Urine Blood Small H Ur Leukocyte Esterase Trace H Urine RBC 10 H Urine WBC 10 H Urine Bacteria Rare H Hyaline Casts 4 H Urine Mucus Rare H Urine Opiates Screen Detected H 08/28/20 08/28/20 08/28/20 14:53 15:02 18:18 WBC MCH MCHC RDW Neutrophils # Neutrophils # (Manual) Lymphocytes # (Manual) Metamyelocytes # (Man) PT 12.7 H INR 1.2 H Potassium BUN Creatinine Glucose POC Glucose (mg/dL) 108 H Calcium Total Bilirubin AST ALT Alkaline Phosphatase Troponin I 0.262 H* Total Protein Albumin LDL Cholesterol, Calc HDL Cholesterol Urine Protein Urine Blood Ur Leukocyte Esterase Urine RBC Urine WBC Urine Bacteria Hyaline Casts Urine Mucus Urine Opiates Screen 08/28/20 08/28/20 08/28/20 21:08 21:29 21:58 WBC MCH MCHC RDW Neutrophils # Neutrophils # (Manual) Lymphocytes # (Manual) Metamyelocytes # (Man) PT INR Potassium BUN Creatinine Glucose POC Glucose (mg/dL) 64 L 103 H 102 H Calcium Total Bilirubin AST ALT Alkaline Phosphatase Troponin I Total Protein Albumin LDL Cholesterol, Calc HDL Cholesterol Urine Protein Urine Blood Ur Leukocyte Esterase Urine RBC Urine WBC Urine Bacteria Hyaline Casts Urine Mucus Urine Opiates Screen 08/28/20 08/29/20 08/29/20 22:34 05:00 05:00 WBC 12.9 H MCH MCHC 30.9 L RDW 24.8 H Neutrophils # 9.8 H Neutrophils # (Manual) Lymphocytes # (Manual) Metamyelocytes # (Man) PT INR Potassium BUN Creatinine Glucose POC Glucose (mg/dL) Calcium Total Bilirubin AST ALT Alkaline Phosphatase Troponin I 0.300 H* Total Protein Albumin LDL Cholesterol, Calc 105 H HDL Cholesterol 15 L Urine Protein Urine Blood Ur Leukocyte Esterase Urine RBC Urine WBC Urine Bacteria Hyaline Casts Urine Mucus Urine Opiates Screen 08/29/20 08/29/20 05:00 05:23 WBC MCH MCHC RDW Neutrophils # Neutrophils # (Manual) Lymphocytes # (Manual) Metamyelocytes # (Man) PT INR Potassium 3.0 L BUN 51 H Creatinine 1.20 H Glucose 123 H POC Glucose (mg/dL) 107 H Calcium 7.7 L Total Bilirubin 1.7 H AST 74 H ALT 87 H Alkaline Phosphatase 272 H Troponin I Total Protein 5.4 L Albumin 2.1 L LDL Cholesterol, Calc HDL Cholesterol Urine Protein Urine Blood Ur Leukocyte Esterase Urine RBC Urine WBC Urine Bacteria Hyaline Casts Urine Mucus Urine Opiates Screen - Diagnostic Findings Chest x-ray: image reviewed Assessment and Plan Assessment: Acute mental status changes, likely related to hypoglycemia, currently much improved. Hypotension, likely on the basis of volume depletion and dehydration. Recent prolonged admission for COVID 19 pneumonia, with admission from July 16 through August 13. Possible urinary tract infection. Hypokalemia. History of chronic atrial fibrillation. History of CHF. History of diabetes mellitus. Morbid obesity. History of osteoarthritis. Prior history of bariatric surgery. Multiple medical problems and comorbidities. Plan: Plan dated 08/29/2020. The patient has been weaned off the norepinephrine. We'll give her some additional volume. She looks much better and is much more awake and alert. Likely, the mental status changes related to the hypoglycemia. Hypotension likely related to underlying volume depletion and dehydration, and/or mild sepsis from urinary source. Additional recommendations and suggestions are forthcoming. The patient could be transferred out of the ICU later today. She is a DO NOT RESUSCITATE. That order has been placed into the computer. Time with Patient: Greater than 30
[2020-08-29] MEDS: ZINC SULFATE 220 MG CAP PO SCH (10:37)
[2020-08-29] MEDS: APIXABAN 5 MG TAB PO SCH ×2 (10:40→21:38)
[2020-08-29] MEDS: ALBUTEROL HFA INHALER INHALATION PRN (10:54)
[2020-08-29 11:27] LABS: Glucose,Whole Blood 123 mg/dL (75-99)
[2020-08-29 11:31] VITALS: BMI 47.7
[2020-08-29] MEDS: NOREPINEPHRINE 4 MG in SODIUM CHLORIDE 0.9% 250 ML IV SCH ×2 (12:06→20:53)
[2020-08-29] MEDS: SODIUM CHLORIDE 0.9% 1,000 ML IV SCH ×2 (12:06→23:43)
--- NOTE | 2020-08-29 13:04 | CONS ---
CONSULTATION Bernice Chou is a 75-year-old lady who came into the emergency room on August 28 in the afternoon with some altered mentation was brought in from one of the local nursing homes, [facility]. However, she was also recently discharged from the hospital on the . Apparently her hypoglycemia was addressed with an amp of glucagon and then she became hypotensive and then received 2-3 L of fluid and was transferred to the ICU. I am seeing her mainly because of a mild elevation of her troponin. This lady has history of a coronavirus infection in the last week of July or so. However after she was brought into the ICU, she received fluids and was placed on a small dose of Levophed which is being weaned off. She has fairly well preserved left ventricular systolic function. Her chest x-ray suggests pulmonary fibrosis. Troponin profile does not suggest any myocardial injury. This is probably related to some hypoxia. However her troponins have been flat even on her previous hospitalization as well. She is lethargic, but comfortable and not in any distress and no hypoxia is evident. PAST MEDICAL HISTORY: Past medical history is remarkable for chronic atrial fibrillation on anticoagulants, history of recent hospitalization with what seems to be a coronavirus infection and possibly had some had some pulmonary fibrosis as well. She has type 2 diabetes, on insulin requiring; osteoarthritis and previous lap band surgery, details of which are not available. She is status post hysterectomy and orthopedic surgery in the past. MEDICATIONS: Her medications in the [facility] include flecainide 50 mg b.i.d., Aldactone 25 mg daily, insulin, Lopressor 12.5 mg daily, melatonin, and she also takes albuterol inhaler and Bumex 1 mg b.i.d. ALLERGIES: She is allergic to CIPRO, HYDROCHLOROTHIAZIDE, DOXYCYCLINE, and ACTOS. PHYSICAL EXAMINATION: On examination, blood pressure is about 108/70, pulse rate is about 90 per minute irregular. HEENT: Unremarkable. Fundus was not examined by me. Neck is supple. There is no JVD. Heart exam reveals S1, S2 heard normally. There is an irregularity in rhythm noted. Short systolic murmur is audible. Lungs reveal bilateral scattered rales, fair air entry. Abdomen is soft. Lower extremities reveal diminished pulses. Central nervous system limited assessment does not reveal focal deficits. This patient apparently had a Lexiscan stress test in June 2019 which was normal. She sees Dr. Valdes in the office and is known to have atrial fibrillation which seems to be paroxysmal, but here she seems to be in atrial fibrillation today. IMPRESSION: 1. Rule out sepsis given her hypotension. 2. Episode of hypoglycemia. 3. Atrial fibrillation appears to be persistent. 4. Probable mild aortic stenosis. 5. History of abnormal troponins with no evidence to suggest acute myocardial injury. 6. History of pulmonary fibrosis. 7. History of recent deep vein thrombosis. RECOMMENDATIONS: I am recommending that we continue the septic workup. The patient's aortic stenosis is mild. LV function is good. Continue IV fluids and perform septic workup. With regards to her atrial fibrillation, I think the rate control is fairly reasonable. We will continue all her medications including 5 mg b.i.d. of Eliquis. We will check the electrolytes and supplement the potassium and also magnesium if abnormal. No aggressive measures for her troponin elevation. I believe this is related to some relative hypoxia or not related to myocardial injury. Thank you very much for the consult. MMODL / IJN: [id number] /
--- NOTE | 2020-08-29 13:19 | P.HPIM ---
History of Present Illness H&P Date: 08/29/20 Chief Complaint: MS change HISTORY OF PRESENT ILLNESS This is a 75-year-old female patient of Dr. Betancur with past medical history significant for COVID-19 pneumonia diagnosed July 17 with a month long hospitalization, chronic hypoxic respiratory failure secondary to Covid, paroxysmal atrial fibrillation on eliquis, diabetes mellitus type 2, chronic diastolic heart failure, peptic ulcer disease, chronic anemia. Patient was discharged from the hospital and when to [facility] for subacute rehab. Patient was diagnosed with a DVT in her right lower extremity and readmitted to the hospital treated for acute kidney injury with metabolic acidosis secondary to postobstructive diuresis and nephrotoxic agents, acute PE was ruled out by VQ scan. Echocardiogram at that time revealed EF 55-60% with mild aortic stenosis, mild mitral regurgitation, mild tricuspid regurgitation. She also had abdominal ultrasound as she has chronically elevated liver function tests since her Covid diagnosis which revealed splenomegaly, possible hepatic steatosis, hepatocellular disease. Patient was discharged back to [facility] on August 27. Patient was sent by EMS back to [facility] due to mental status changes and had a blood glucose of 44 give her 1 mg of glucagon 102, blood pressure 120/62, pulse ox 96% CBC was unremarkable. Electrolytes normal, BUN 56 and creatinine 1.19, blood sugar 144. EKG was accelerated junctional rhythm with occasional PVCs. No acute ST changes. Chest x-ray showed no acute abnormality. CAT scan of the brain showed no acute abnormality. Patient was admitted to cardiac stepdown unit but A-Team was called yesterday afternoon for hypotension and worsening mental status blood pressure was in the 70s over 40s and patient was status post 1.5 L of normal saline. She was tachycardic. Patient was seen by Dr. López and started on vancomycin and Zosyn, liver ultrasound and contacted Dr. Rome. Patient was then transferred to the intensive care unit where she is seen today. Patient is quite confused although she is awake and alert. REVIEW OF SYSTEMS Unable to obtain due to patient's mental status. SOCIAL HISTORY Patient currently was a lifelong nonsmoker. No alcohol use/abuse. No illicit drug use. Patient lives at home with her . She is currently at [facility] for subacute rehab. FAMILY HISTORY Mother at age 72 from lung cancer with history of coronary artery disease. Father in his late 60s from a head trauma. Patient has one brother that is alive and broke his neck when he was young. Patient has one sister with COPD. Patient has one daughter age 53 with anxiety and one son with osteoarthritis. PHYSICAL EXAMINATION Gen: This is a morbidly obese 75-year-old female. Patient is resting in bed and appears to be in no acute distress. No respiratory distress is noted. HEENT: Head is atraumatic, normocephalic. Pupils equal, round. Sclerae is anicteric. NECK: Supple. No JVD. No lymphadenopathy. No thyromegaly. LUNGS: Clear to auscultation. No wheezes or rhonchi. No intercostal retractions. HEART: Irregular rate and rhythm. Systolic murmur. ABDOMEN: Soft. Bowel sounds are present. No masses. No tenderness. EXTREMITIES: Trace bilateral pedal edema. No calf tenderness. NEUROLOGICAL: Patient is awake, alert and oriented to person Cranial nerves 2 through 12 are grossly intact. ASSESSMENT AND PLAN 1. Acute metabolic encephalopathy most likely secondary to hypoglycemia. Patient not yet back to her baseline. 2. Hypovolemic shock requiring IV fluid resuscitation and transferred to the intensive care unit. Consult with Dr. Michel appreciated. 3. Possible urinary tract infection. Patient has been started on IV antibiotics. 4. Hypokalemia status post replacement. 5. Rght lower extremity DVT. Continue eliquis. 6. Elevated liver function test most likely secondary to Covid 19 as she was normal on her past admission initially. Numbers are stable from August 15. Liver ultrasound ordered. 7. Chronic thrombocytopenia resolved. Continue to monitor. 8. Chronic hypoxic respiratory failure on oxygen at 2-3 L nasal cannula. Continue oxygen therapy. Pulmonary consult. 9. Paroxysmal atrial fibrillation. Continue flecainide 50 g twice daily, Lopressor 12.5 mg daily, eliquis 2.5 mg twice daily. 0. Diabetes mellitus type 2. Continue Levemir 40 units daily, NovoLog 3 units with breakfast and NovoLog scale before meals and at bedtime, Januvia 100 mg daily or equivalent. 11. Recent Covid 19 pneumonia with elevated inflammatory markers, stable. Continue albuterol inhaler as needed. 12. Chronic diastolic heart failure. Bumex and Zaroxolyn on hold. Cardiology consult. 13. Peptic ulcer disease and GI prophylaxis. Protonix 40 mg twice daily. 14. Stage II decubitus ulcers to the coccyx area. Wound Center consult. 15. DVT prophylaxis. Heparin drip for now and transition to eliquis. Patient will be admitted to the hospital for a minimum of 2 night stay. DISCHARGE PLAN RETURN TO [facility] FOR SUBACUTE REHAB. Impression and plan of care have been directed as dictated by the signing physician. Leeann Rose nurse practitioner acting as scribe for signing physician. Past Medical History Past Medical History: Atrial Fibrillation, Heart Failure, Diabetes Mellitus, Osteoarthritis (OA) Additional Past Medical History / Comment(s): states SOB, back pain-receiving physical therapy., has Lap Band (does not think there is fluid in it), ATKA, See Cardiology H & P. History of Any Multi-Drug Resistant Organisms: None Reported Past Surgical History: Bariatric Surgery, Hysterectomy, Joint Replacement, Orthopedic Surgery Additional Past Surgical History / Comment(s): katie knee replacements,katie knee arthroscopies,katie ovaries removed,lap band placed x 2-"doesn't think there is fluid is present", cataracts. Past Anesthesia/Blood Transfusion Reactions: Previous Problems w/ Anesthesia, Family History of Problems w/ Anesthesia, Motion Sickness Additional Past Anesthesia/Blood Transfusion Reaction / Comment(s): states she was alert when I was getting put under and the tube going into my throat and I panicked, trouble waking up with general anesthesia. mother-ponv Past Psychological History: Depression Additional Psychological History / Comment(s): past depression-denies problem now. Smoking Status: Never smoker Past Alcohol Use History: Occasional Past Drug Use History: None Reported Additional Drug Use History / Comment(s): HX OF CBD OIL USE. - Past Family History Mother Additional Family Medical History / Comment(s): breast,bladder,lung Father Family Medical History: No Reported History Medications and Allergies Home Medications Medication Instructions Recorded Confirmed Type Flecainide [Tambocor] 50 mg PO BID@0800,1600 10/20/19 08/28/20 History Cholecalciferol (Vitamin D3) 125 mcg PO DAILY@0800 07/09/20 08/28/20 History [Vitamin D3 (5000 Iu)] Diclofenac Sodium [Voltaren 2 gm TOPICAL QID PRN 07/09/20 08/28/20 History Arthritis Pain 1% Gel] Albuterol Inhaler [Ventolin Hfa 2 puff INHALATION RT-Q6H PRN 07/16/20 08/28/20 History Inhaler] Ascorbic Acid [Vitamin C] 1,000 mg PO DAILY@1600 08/22/20 08/28/20 History Benzonatate [Tessalon Perles] 100 mg PO TID@0800,1200,1700 08/22/20 08/28/20 History Bumetanide [BUMEX] 1 mg PO BID@0800,1700 08/22/20 08/28/20 History Insulin Aspart [NovoLOG Flexpen] 3 units SQ DAILY@0700 08/22/20 08/28/20 History Insulin Aspart [NovoLOG Flexpen] 6 units SQ AC-BID@1100,1600 08/22/20 08/28/20 History Insulin Aspart [NovoLOG Flexpen] See Protocol SQ ACHS 08/22/20 08/28/20 History Insulin Glargine,Hum.rec.anlog 40 unit SQ HS@199908/22/20 08/28/20 History [Lantus Solostar] Magnesium Hydroxide [Milk of 7,200 mg PO Q48H PRN 08/22/20 08/28/20 History Magnesia Concentrate] Metoprolol Tartrate [Lopressor] 12.5 mg PO DAILY@0600 08/22/20 08/28/20 History Oxymetazoline 0.05% Nasl Justin 2 spray EA NOSTRIL BID@0800,1600 08/22/20 08/28/20 History [Afrin 0.05% Nasal Justin] SILVER sulfADIAZINE CREAM 1 applic TOPICAL BID 08/22/20 08/28/20 History [Silvadene Cream] Zinc Sulfate [Orazinc] 220 mg PO DAILY@0600 08/22/20 08/28/20 History Apixaban [Eliquis] 5 mg PO BID@0600,199908/28/20 08/28/20 History Cholestyramine (with Sugar) 4 gm PO BID@0800,1600 08/28/20 08/28/20 History [Questran Packet] Melatonin 6 mg PO HS@199908/28/20 08/28/20 History Omeprazole 20 mg PO DAILY@0600 08/28/20 08/28/20 History Periguard Ointment 1 applic TOPICAL DAILY PRN 08/28/20 08/28/20 History Spironolactone [Aldactone] 12.5 mg PO DAILY@0600 08/28/20 08/28/20 History Allergies Allergy/AdvReac Type Severity Reaction Status Date / Time adhesive tape Allergy tears skin Verified 08/28/20 15:06 ciprofloxacin [From Cipro] Allergy Rash/Hives Verified 08/28/20 15:06 doxycycline Allergy Rash/Hives Verified 08/28/20 15:06 hydrochlorothiazide Allergy Unknown Verified 08/28/20 15:06 pioglitazone [From Actos] Allergy Swelling Verified 08/28/20 15:06 "HCL" AdvReac Cough Uncoded 08/28/20 15:06 Physical Exam Vitals: Vital Signs Temp Pulse Pulse Resp BP BP Pulse Ox 08/29/20 09:45 101 H 22 99/87 08/29/20 09:30 92 17 106/90 08/29/20 09:15 103 H 12 102/85 91 L 08/29/20 09:00 96 16 85/61 95 08/29/20 08:45 83 13 95/68 94 L 08/29/20 08:30 98 19 95/49 08/29/20 08:15 82 16 119/92 98 08/29/20 08:00 89 15 107/69 99 08/29/20 07:45 24 81/58 89 L 08/29/20 07:30 76 16 120/96 99 08/29/20 07:15 89 10 L 131/81 96 08/29/20 07:00 79 20 110/73 96 08/29/20 06:51 85/49 08/29/20 06:45 76 11 L 110/60 97 08/29/20 06:30 80 14 117/60 99 08/29/20 06:15 76 20 113/67 96 08/29/20 06:00 82 17 112/67 98 08/29/20 05:45 94 17 85/69 98 08/29/20 05:30 80 19 127/65 96 08/29/20 05:15 82 14 92/71 98 08/29/20 05:00 91 11 L 111/92 95 08/29/20 04:45 83 18 116/82 100 08/29/20 04:30 84 16 98 08/29/20 04:15 76 14 117/76 97 08/29/20 04:00 98.3 F 88 28 H 117/81 98 08/29/20 03:45 92 20 120/70 96 08/29/20 03:30 80 14 126/66 97 08/29/20 03:15 91 13 95 08/29/20 03:00 84 24 112/79 95 08/29/20 02:45 81 16 112/71 98 08/29/20 02:30 103 H 19 114/73 97 08/29/20 02:15 99 11 L 120/62 92 L 08/29/20 02:00 85 27 H 116/79 100 08/29/20 01:45 76 10 L 115/54 08/29/20 01:30 95 14 115/58 96 08/29/20 01:15 78 21 110/62 08/29/20 01:00 81 17 109/55 95 08/29/20 00:45 90 21 119/55 97 08/29/20 00:30 84 31 H 116/61 98 08/29/20 00:20 85 17 116/61 98 08/29/20 00:15 89 15 124/65 97 08/29/20 00:00 98.1 F 92 17 97 08/28/20 23:47 91 17 08/28/20 23:25 80 104/59 08/28/20 23:20 78 102/88 08/28/20 23:15 87 103/80 08/28/20 23:10 98 108/70 08/28/20 23:05 93 111/59 08/28/20 23:00 88 107/92 08/28/20 22:55 86 96/68 08/28/20 22:50 86 107/68 08/28/20 22:45 88 113/65 08/28/20 22:40 82 104/82 08/28/20 22:35 89 95/78 08/28/20 22:30 92 90/52 08/28/20 22:25 84/54 08/28/20 22:20 78/41 08/28/20 22:15 88/59 08/28/20 19:53 105/44 08/28/20 19:49 96.9 F L 102 H 22 87/51 94 L 08/28/20 15:47 100.4 F H 102 H 18 105/86 97 08/28/20 14:52 105 H 18 115/84 97 08/28/20 12:56 99.0 F 102 H 18 120/62 96 Intake and Output 08/28/20 08/29/20 08/29/20 22:59 06:59 14:59 Intake Total 2340 289.392 Output Total 950 350 165 Balance -950 1990 124.392 Intake: IV 100 80 0.9 @ 20 mL/hr 100 80 Intake, IV Titration 1999 209.392 Amount Norepinephrine 4 mg In 209.392 Sodium Chloride 0.9% 250 ml @ 0.05 MCG/KG/MIN 24. 022 mls/hr IV .[id number] CASIMIRO Rx#:[id number] Sodium Chloride 0.9% 1, 2000 000 ml @ 999 mls/hr IV . Q1H1M ONE Rx#:[id number] Oral 240 Output: Urine 950 350 165 Other: Voiding Method Indwelling Catheter Indwelling Catheter Weight 126.099 kg Results CBC & Chem 7: 08/29/20 05:00 08/29/20 05:00 Labs: Abnormal Lab Results - Last 24 Hours (Table) 08/28/20 08/28/20 08/28/20 Range/Units 13:06 13:39 13:46 WBC 10.8 H (3.8-10.6) k/uL MCH 24.7 L (25.0-35.0) pg MCHC 30.0 L (31.0-37.0) g/dL RDW 24.2 H (11.5-15.5) % Neutrophils # (1.3-7.7) k/uL Neutrophils # (Manual) 9.00 H (1.3-7.7) k/uL Lymphocytes # (Manual) 0.97 L (1.0-4.8) k/uL Metamyelocytes # (Man) 0.32 H (0) k/uL PT (9.0-12.0) sec INR (<1.2) Potassium (3.5-5.1) mmol/L BUN (7-17) mg/dL Creatinine (0.52-1.04) mg/dL Glucose (74-99) mg/dL POC Glucose (mg/dL) 74 L 149 H (75-99) mg/dL Calcium (8.4-10.2) mg/dL Total Bilirubin (0.2-1.3) mg/dL AST (14-36) U/L ALT (4-34) U/L Alkaline Phosphatase (38-126) U/L Troponin I (0.000-0.034) ng/mL Total Protein (6.3-8.2) g/dL Albumin (3.5-5.0) g/dL LDL Cholesterol, Calc (0-99) mg/dL HDL Cholesterol (40-60) mg/dL Urine Protein (Negative) Urine Blood (Negative) Ur Leukocyte Esterase (Negative) Urine RBC (0-5) /hpf Urine WBC (0-5) /hpf Urine Bacteria (None) /hpf Hyaline Casts (0-2) /lpf Urine Mucus (None) /hpf Urine Opiates Screen (NotDetected) 08/28/20 08/28/20 08/28/20 Range/Units 13:46 13:46 13:46 WBC (3.8-10.6) k/uL MCH (25.0-35.0) pg MCHC (31.0-37.0) g/dL RDW (11.5-15.5) % Neutrophils # (1.3-7.7) k/uL Neutrophils # (Manual) (1.3-7.7) k/uL Lymphocytes # (Manual) (1.0-4.8) k/uL Metamyelocytes # (Man) (0) k/uL PT (9.0-12.0) sec INR (<1.2) Potassium (3.5-5.1) mmol/L BUN 56 H (7-17) mg/dL Creatinine 1.19 H (0.52-1.04) mg/dL Glucose 144 H (74-99) mg/dL POC Glucose (mg/dL) (75-99) mg/dL Calcium 7.9 L (8.4-10.2) mg/dL Total Bilirubin 1.5 H (0.2-1.3) mg/dL AST 64 H (14-36) U/L ALT 78 H (4-34) U/L Alkaline Phosphatase 258 H (38-126) U/L Troponin I 0.156 H* (0.000-0.034) ng/mL Total Protein 5.2 L (6.3-8.2) g/dL Albumin 2.0 L (3.5-5.0) g/dL LDL Cholesterol, Calc (0-99) mg/dL HDL Cholesterol (40-60) mg/dL Urine Protein Trace H (Negative) Urine Blood Small H (Negative) Ur Leukocyte Esterase Trace H (Negative) Urine RBC 10 H (0-5) /hpf Urine WBC 10 H (0-5) /hpf Urine Bacteria Rare H (None) /hpf Hyaline Casts 4 H (0-2) /lpf Urine Mucus Rare H (None) /hpf Urine Opiates Screen Detected H (NotDetected) 08/28/20 08/28/20 08/28/20 Range/Units 14:53 15:02 18:18 WBC (3.8-10.6) k/uL MCH (25.0-35.0) pg MCHC (31.0-37.0) g/dL RDW (11.5-15.5) % Neutrophils # (1.3-7.7) k/uL Neutrophils # (Manual) (1.3-7.7) k/uL Lymphocytes # (Manual) (1.0-4.8) k/uL Metamyelocytes # (Man) (0) k/uL PT 12.7 H (9.0-12.0) sec INR 1.2 H (<1.2) Potassium (3.5-5.1) mmol/L BUN (7-17) mg/dL Creatinine (0.52-1.04) mg/dL Glucose (74-99) mg/dL POC Glucose (mg/dL) 108 H (75-99) mg/dL Calcium (8.4-10.2) mg/dL Total Bilirubin (0.2-1.3) mg/dL AST (14-36) U/L ALT (4-34) U/L Alkaline Phosphatase (38-126) U/L Troponin I 0.262 H* (0.000-0.034) ng/mL Total Protein (6.3-8.2) g/dL Albumin (3.5-5.0) g/dL LDL Cholesterol, Calc (0-99) mg/dL HDL Cholesterol (40-60) mg/dL Urine Protein (Negative) Urine Blood (Negative) Ur Leukocyte Esterase (Negative) Urine RBC (0-5) /hpf Urine WBC (0-5) /hpf Urine Bacteria (None) /hpf Hyaline Casts (0-2) /lpf Urine Mucus (None) /hpf Urine Opiates Screen (NotDetected) 08/28/20 08/28/20 08/28/20 Range/Units 21:08 21:29 21:58 WBC (3.8-10.6) k/uL MCH (25.0-35.0) pg MCHC (31.0-37.0) g/dL RDW (11.5-15.5) % Neutrophils # (1.3-7.7) k/uL Neutrophils # (Manual) (1.3-7.7) k/uL Lymphocytes # (Manual) (1.0-4.8) k/uL Metamyelocytes # (Man) (0) k/uL PT (9.0-12.0) sec INR (<1.2) Potassium (3.5-5.1) mmol/L BUN (7-17) mg/dL Creatinine (0.52-1.04) mg/dL Glucose (74-99) mg/dL POC Glucose (mg/dL) 64 L 103 H 102 H (75-99) mg/dL Calcium (8.4-10.2) mg/dL Total Bilirubin (0.2-1.3) mg/dL AST (14-36) U/L ALT (4-34) U/L Alkaline Phosphatase (38-126) U/L Troponin I (0.000-0.034) ng/mL Total Protein (6.3-8.2) g/dL Albumin (3.5-5.0) g/dL LDL Cholesterol, Calc (0-99) mg/dL HDL Cholesterol (40-60) mg/dL Urine Protein (Negative) Urine Blood (Negative) Ur Leukocyte Esterase (Negative) Urine RBC (0-5) /hpf Urine WBC (0-5) /hpf Urine Bacteria (None) /hpf Hyaline Casts (0-2) /lpf Urine Mucus (None) /hpf Urine Opiates Screen (NotDetected) 08/28/20 08/29/20 08/29/20 Range/Units 22:34 05:00 05:00 WBC 12.9 H (3.8-10.6) k/uL MCH (25.0-35.0) pg MCHC 30.9 L (31.0-37.0) g/dL RDW 24.8 H (11.5-15.5) % Neutrophils # 9.8 H (1.3-7.7) k/uL Neutrophils # (Manual) (1.3-7.7) k/uL Lymphocytes # (Manual) (1.0-4.8) k/uL Metamyelocytes # (Man) (0) k/uL PT (9.0-12.0) sec INR (<1.2) Potassium (3.5-5.1) mmol/L BUN (7-17) mg/dL Creatinine (0.52-1.04) mg/dL Glucose (74-99) mg/dL POC Glucose (mg/dL) (75-99) mg/dL Calcium (8.4-10.2) mg/dL Total Bilirubin (0.2-1.3) mg/dL AST (14-36) U/L ALT (4-34) U/L Alkaline Phosphatase (38-126) U/L Troponin I 0.300 H* (0.000-0.034) ng/mL Total Protein (6.3-8.2) g/dL Albumin (3.5-5.0) g/dL LDL Cholesterol, Calc 105 H (0-99) mg/dL HDL Cholesterol 15 L (40-60) mg/dL Urine Protein (Negative) Urine Blood (Negative) Ur Leukocyte Esterase (Negative) Urine RBC (0-5) /hpf Urine WBC (0-5) /hpf Urine Bacteria (None) /hpf Hyaline Casts (0-2) /lpf Urine Mucus (None) /hpf Urine Opiates Screen (NotDetected) 08/29/20 08/29/20 Range/Units 05:00 05:23 WBC (3.8-10.6) k/uL MCH (25.0-35.0) pg MCHC (31.0-37.0) g/dL RDW (11.5-15.5) % Neutrophils # (1.3-7.7) k/uL Neutrophils # (Manual) (1.3-7.7) k/uL Lymphocytes # (Manual) (1.0-4.8) k/uL Metamyelocytes # (Man) (0) k/uL PT (9.0-12.0) sec INR (<1.2) Potassium 3.0 L (3.5-5.1) mmol/L BUN 51 H (7-17) mg/dL Creatinine 1.20 H (0.52-1.04) mg/dL Glucose 123 H (74-99) mg/dL POC Glucose (mg/dL) 107 H (75-99) mg/dL Calcium 7.7 L (8.4-10.2) mg/dL Total Bilirubin 1.7 H (0.2-1.3) mg/dL AST 74 H (14-36) U/L ALT 87 H (4-34) U/L Alkaline Phosphatase 272 H (38-126) U/L Troponin I (0.000-0.034) ng/mL Total Protein 5.4 L (6.3-8.2) g/dL Albumin 2.1 L (3.5-5.0) g/dL LDL Cholesterol, Calc (0-99) mg/dL HDL Cholesterol (40-60) mg/dL Urine Protein (Negative) Urine Blood (Negative) Ur Leukocyte Esterase (Negative) Urine RBC (0-5) /hpf Urine WBC (0-5) /hpf Urine Bacteria (None) /hpf Hyaline Casts (0-2) /lpf Urine Mucus (None) /hpf Urine Opiates Screen (NotDetected) Microbiology - Last 24 Hours (Table) 08/28/20 22:15 Urine Culture - Preliminary Urine,Catheterized Thrombosis Risk Factor Assmnt - Choose All That Apply Any of the Below Risk Factors Present?: Yes Each Factor Represents 1 point: Obesity (BMI >25) Other Risk Factors: Yes Each Risk Factor Represents 2 Points: Age 61-74 years Other congenital or acquired thrombophilia - If yes, enter type in comment: No Thrombosis Risk Factor Assessment Total Risk Factor Score: 3 Thrombosis Risk Factor Assessment Level: Moderate Risk
[2020-08-29 16:32] LABS: Glucose,Whole Blood 126 mg/dL (75-99)
[2020-08-29] MEDS: ASCORBIC ACID 500 MG TAB PO SCH (17:29)
[2020-08-29 20:41] LABS: Glucose,Whole Blood 178 mg/dL (75-99)
[2020-08-29] MEDS ORDERED: VANCOMYCIN 1,750 MG in SODIUM CHLORIDE 0.9% 500 ML 500 ML IVPB SCH (21:00)
[2020-08-29] MEDS ORDERED: VANCOMYCIN 2,250 MG in SODIUM CHLORIDE 0.9% 500 ML 500 ML IVPB SCH (21:00)
[2020-08-29] MEDS: INSULIN DETEMIR (LEVEMIR) 100 UNIT/ML SYR SQ SCH (21:38)
[2020-08-29] MEDS: MELATONIN 3 MG TABLET PO SCH (21:38)
[2020-08-30] MEDS ORDERED: VANCOMYCIN 1,750 MG in SODIUM CHLORIDE 0.9% 500 ML 500 ML IVPB SCH (01:00)
[2020-08-30 03:51] LABS: Glucose,Whole Blood 237 mg/dL (75-99)
[2020-08-30 05:03] LABS: Anisocytosis Marked; Basophils # (A) 0.1 k/uL (0-0.2); Basophils % (A) 1 %; Eosinophils % (A) 0 %; HCT 37.2 % (34.0-46.0); Hypochromasia Marked; Lymphocytes # (A) 1.2 k/uL (1.0-4.8); Lymphocytes % (A) 13 %; MCH 24.8 pg (25.0-35.0); MCHC 29.5 g/dL (31.0-37.0); Mean Platelet Volume 7.2; Microcytosis Slight; Monocytes # (A) 0.5 k/uL (0-1.0); Monocytes % (A) 5 %; Neutrophils # (A) 7.3 k/uL (1.3-7.7); Neutrophils % (A) 80 %; Platelet Count 204 k/uL (150-450); Poikilocytosis Slight; RBC 4.43 m/uL (3.80-5.40); RDW 24.3 % (11.5-15.5); WBC 9.1 k/uL (3.8-10.6)
[2020-08-30 05:19] LABS: Calcium 7.8 mg/dL (8.4-10.2); Total Bilirubin 1.2 mg/dL (0.2-1.3); Total Protein 5.1 g/dL (6.3-8.2)
[2020-08-30] MEDS: POTASSIUM CHLORIDE ER 20 MEQ TAB.ER PO SCH ×3 (06:15→09:31)
[2020-08-30] MEDS: PIPERACILLIN-TAZOBACTAM 3.375 GM in SODIUM CHLORIDE 0.9% 100 ML IVPB SCH ×3 (06:15→20:44)
[2020-08-30] MEDS: NOREPINEPHRINE 4 MG in SODIUM CHLORIDE 0.9% 250 ML IV SCH (06:53)
[2020-08-30 07:00] LABS: Glucose,Whole Blood 191 mg/dL (75-99)
[2020-08-30] MEDS: PANTOPRAZOLE 40 MG TABLET PO SCH (07:02)
[2020-08-30] MEDS: INSULIN ASPART (NovoLOG) 100 UNIT/ML VIAL SQ SCH ×7 (07:02→20:33)
--- NOTE | 2020-08-30 08:28 | PN ---
PROGRESS NOTE Mrs. Chou remains in atrial fib, the rate is controlled. She is feeling a lot better. Her blood pressure is about 120/78, pulse rate is in the 80s. She is responding to questions, feels well, has no chest pain or shortness of breath. Her laboratory data from this morning suggests a hemoglobin of 11, platelet count is good. Her potassium is low at 3.0. She is feeling much better. PHYSICAL EXAMINATION: There is no JVD . S1, S2 heard normally, irregularity in rhythm noted, short systolic murmur noted. Lungs are clear. Abdomen is soft, nontender. Lower extremities reveal diminished pulses. No edema. Central nervous system is grossly within normal limits. RECOMMENDATIONS: I am recommending metoprolol tartrate 25 mg b.i.d. We will supplement potassium up to a total of 60 mEq and check a magnesium level and supplement if necessary. I discussed my thoughts in detail with the patient. She will be going to the medical floor and we will see her as needed. MMODL / IJN: [id number] /
[2020-08-30] MEDS: CHOLESTYRAMINE (WITH SUGAR) 4 GM PACKET PO SCH ×2 (09:21→16:42)
[2020-08-30] MEDS: FLECAINIDE 50 MG TAB PO SCH ×2 (09:21→16:42)
[2020-08-30] MEDS: BENZONATATE 100 MG CAP PO SCH ×3 (09:21→16:41)
[2020-08-30] MEDS: OXYMETAZOLINE 0.05% NASL SPRAY 1 SPRAY BOTTLE EA NOSTRIL SCH ×2 (09:23→16:41)
[2020-08-30] MEDS: BUMETANIDE 1 MG TAB PO SCH ×2 (09:23→16:43)
[2020-08-30] MEDS: HYDROCORTISONE SUCCINATE 100 MG/2 ML VIAL IV SCH ×3 (09:31→23:11)
[2020-08-30] MEDS: CHOLECALCIFEROL 25 MCG (1000 IU) TABLET PO SCH (09:31)
[2020-08-30] MEDS: APIXABAN 5 MG TAB PO SCH ×2 (09:31→20:43)
[2020-08-30] MEDS: ZINC SULFATE 220 MG CAP PO SCH (09:31)
--- NOTE | 2020-08-30 10:43 | P.PN ---
Subjective Progress Note Date: 08/30/20 Principal diagnosis: Mental status changes, hypoglycemia, hypotension 75-year-old female, who presents to the emergency department, on August 28, at 12:51 PM, with mental status changes. The patient was brought in from one of the local nursing homes. The patient was recently in the hospital between August 22, and August 27. The patient apparently was found to have hypoglycemia, with a blood sugar of 44, and she received 1 ampule of glucagon. I was notified by the on-call hospitalist, that the patient was hypotensive, looking very poorly, and had in addition to hypoglycemia, had hypotension. She received a couple liters of fluid and I agreed to have the patient transferred to the intensive care unit. Initially, the patient was on norepinephrine, but that has been turned off. This is a patient well-known to our service. She was previously inpatient between July 16 and August 13, with an episode of coronavirus infection. Currently, she is on 4 L nasal cannula, and saline at 20 mL an hour. She is much more awake and alert, and as I mentioned, the norepinephrine has been weaned off. White count is 12.9, hemoglobin 12, hematocrit 38.9, and platelet count 295,000. Sodium 140, calcium 3, chlorides 105, CO2 29, anion gap 6, with a BUN of 51, and a creatinine of 1.20. The troponin was 0.3, and calcium of 7.7. Chest x-ray showed evidence of cardiomegaly, with a diffuse interstitial pattern, consistent with pulmonary fibrosis. This is probably most consistent with a residual from her recent COVID 19 pneumonia. On 08/30/2000 patient seen in follow-up in the intensive care unit, her mentation is much improved since admission, she is awake and alert, her speech is somewhat slow, but she is answering questions appropriately, she is oriented times place and person. No acute events overnight, on 4 L of oxygen her pulse ox is 97%, no fever or chills, blood pressure is 110/60, lung sounds are clear. No nausea or vomiting, no abdominal pain, patient is tolerating oral intake. She's been receiving any IV fluids, his labs have been reviewed showing white blood cell count of 9.1, hemoglobin of 11, sodium is 136, potassium is 3.0, BUN 49 creatinine of 1.23, LFTs are relatively stable. Urinalysis did not show definite sign of infection, urine drug screen was positive for opiates. Blood culture showed group D enterococcus, follow blood culture has been sent and he remains negative at the 24-hour ada, urine culture has been negative. Patient is currently on daptomycin and Zosyn. She remains on Eliquis for history of chronic A. fib. Objective - Vital Signs Vital signs: Vital Signs Temp 98.3 F 08/30/20 02:00 Pulse 79 08/30/20 02:00 Resp 18 08/30/20 02:00 BP 110/60 08/30/20 02:00 Pulse Ox 97 08/30/20 02:00 Intake & Output 08/29/20 08/30/20 08/30/20 18:59 06:59 18:59 Intake Total 449.392 160 Output Total 465 800 Balance -15.608 -640 Weight 126.099 kg Intake: IV 240 160 0.9 @ 20 mL/hr 240 160 Intake, IV Titration 209.392 Amount Norepinephrine 4 mg In 209.392 Sodium Chloride 0.9% 250 ml @ 0.05 MCG/KG/MIN 24. 022 mls/hr IV .[id number] [facility] Rx#:[id number] Output: Urine 465 800 Other: Voiding Method Indwelling Catheter Indwelling Catheter - Exam GENERAL EXAM: Alert, very pleasant, morbidly obese 75-year-old white female, currently on 4 L of oxygen, pulse ox of 97% comfortable in no apparent distress. HEAD: Normocephalic/atraumatic. EYES: Normal reaction of pupils, equal size. Conjunctiva pink, sclera white. NOSE: Clear with pink turbinates. THROAT: No erythema or exudates. NECK: No masses, no JVD, no thyroid enlargement, no adenopathy. CHEST: No chest wall deformity. Symmetrical expansion. LUNGS: Equal air entry with no crackles, wheeze, rhonchi or dullness. CVS: Irregular rate and rhythm, normal S1 and S2, no gallops, no murmurs, no rubs ABDOMEN: Soft, nontender. No hepatosplenomegaly, normal bowel sounds, no guarding or rigidity. EXTREMITIES: No clubbing, no edema, no cyanosis, 2+ pulses and upper and lower extremities. MUSCULOSKELETAL: Muscle strength and tone normal. SPINE: No scoliosis or deformity SKIN: No rashes CENTRAL NERVOUS SYSTEM: Alert and oriented -3. No focal deficits, tone is normal in all 4 extremities. PSYCHIATRIC: Alert and oriented -3. Appropriate affect. Intact judgment and insight. - Labs CBC & Chem 7: 08/30/20 04:12 08/30/20 04:12 Labs: Abnormal Lab Results - Last 24 Hours (Table) 08/29/20 08/29/20 08/29/20 Range/Units 11:26 16:31 20:40 Hgb (11.4-16.0) gm/dL MCH (25.0-35.0) pg MCHC (31.0-37.0) g/dL RDW (11.5-15.5) % Sodium (137-145) mmol/L Potassium (3.5-5.1) mmol/L BUN (7-17) mg/dL Creatinine (0.52-1.04) mg/dL Glucose (74-99) mg/dL POC Glucose (mg/dL) 123 H 126 H 178 H (75-99) mg/dL Calcium (8.4-10.2) mg/dL AST (14-36) U/L ALT (4-34) U/L Alkaline Phosphatase (38-126) U/L Total Protein (6.3-8.2) g/dL Albumin (3.5-5.0) g/dL 08/30/20 08/30/20 08/30/20 Range/Units 03:50 04:12 04:12 Hgb 11.0 L (11.4-16.0) gm/dL MCH 24.8 L (25.0-35.0) pg MCHC 29.5 L (31.0-37.0) g/dL RDW 24.3 H (11.5-15.5) % Sodium 136 L (137-145) mmol/L Potassium 3.0 L (3.5-5.1) mmol/L BUN 49 H (7-17) mg/dL Creatinine 1.23 H (0.52-1.04) mg/dL Glucose 197 H (74-99) mg/dL POC Glucose (mg/dL) 237 H (75-99) mg/dL Calcium 7.8 L (8.4-10.2) mg/dL AST 63 H (14-36) U/L ALT 77 H (4-34) U/L Alkaline Phosphatase 279 H (38-126) U/L Total Protein 5.1 L (6.3-8.2) g/dL Albumin 2.0 L (3.5-5.0) g/dL 08/30/20 Range/Units 06:59 Hgb (11.4-16.0) gm/dL MCH (25.0-35.0) pg MCHC (31.0-37.0) g/dL RDW (11.5-15.5) % Sodium (137-145) mmol/L Potassium (3.5-5.1) mmol/L BUN (7-17) mg/dL Creatinine (0.52-1.04) mg/dL Glucose (74-99) mg/dL POC Glucose (mg/dL) 191 H (75-99) mg/dL Calcium (8.4-10.2) mg/dL AST (14-36) U/L ALT (4-34) U/L Alkaline Phosphatase (38-126) U/L Total Protein (6.3-8.2) g/dL Albumin (3.5-5.0) g/dL Microbiology - Last 24 Hours (Table) 08/28/20 22:34 Blood Culture Gram Stain - Preliminary Blood Blood Culture - Preliminary Group D Enterococcus 08/29/20 02:20 Blood Culture - Preliminary Blood No Growth after 24 hours 08/28/20 22:15 Urine Culture - Final Urine,Catheterized 08/28/20 22:34 Blood Culture - Final Blood Assessment and Plan Plan: Assessment: #1. Acute status changes, multifactorial, possibly related to hypoglycemia and possibility of sepsis which has currently improved #2. Group D enterococcus bacteremia, covered with daptomycin and Zosyn, was g iven a dose of vancomycin which is currently discontinued #3. Hypotension, possibly related to sepsis, vitamin depletion and dehydration, currently improved #4. Prolonged admission for COVID19 pneumonia from 07/16/2020 through 08/13/2020 #5. Possible urinary tract infection. Culture has been negative #6. Hypokalemia, improved #7. History of chronic atrial fibrillation on Eliquis #8. Recent diagnosis of left leg DVT, and since then her Eliquis dose was adjusted to 5 mg twice daily from 2.5 mg twice daily #9. History of CHF #10. History of diabetes mellitus type 2 #11. Morbid obesity #12. History of osteoarthritis #13. History of bariatric surgery. Plan: No acute events overnight, patient was fluid resuscitated, vasopressors have been weaned off since yesterday, mentation has significantly improved, she is awake and alert, responding appropriately, she is tolerating oral intake, blood cultures were positive for group D enterococcus, follow-up cultures remain negat rosamaria thus far, current antibiotic coverage with daptomycin and Zosyn. No worsening dyspnea, wean FiO2, increase activity as tolerated, from pulmonary/critical care perspective she is stable for transfer out of ICU today to a general medical floor I performed a history & physical examination of the patient and discussed their management with my nurse practitioner, Corrina Paz. I reviewed the nurse practitioner's note and agree with the documented findings and plan of care. Lung sounds are positive for clear breath sounds. The findings and the impression was discussed with the patient. I attest to the documentation by the nurse practitioner. Time with Patient: Less than 30
[2020-08-30 11:32] LABS: Glucose,Whole Blood 201 mg/dL (75-99)
[2020-08-30] MEDS: METOPROLOL TARTRATE 25 MG TAB PO SCH ×2 (13:53→20:43)
--- NOTE | 2020-08-30 14:07 | P.PN ---
Subjective Progress Note Date: 08/30/20 HISTORY OF PRESENT ILLNESS This is a 75-year-old female patient of Dr. Betancur with past medical history significant for COVID-19 pneumonia diagnosed July 17 with a month long hospitalization, chronic hypoxic respiratory failure secondary to Covid, paroxysmal atrial fibrillation on eliquis, diabetes mellitus type 2, chronic diastolic heart failure, peptic ulcer disease, chronic anemia. Patient was discharged from the hospital and when to [facility] for subacute rehab. Patient was diagnosed with a DVT in her right lower extremity and readmitted to the hospital treated for acute kidney injury with metabolic acidosis secondary to postobstructive diuresis and nephrotoxic agents, acute PE was ruled out by VQ scan. Echocardiogram at that time revealed EF 55-60% with mild aortic stenosis, mild mitral regurgitation, mild tricuspid regurgitation. She also had abdominal ultrasound as she has chronically elevated liver function tests since her Covid diagnosis which revealed splenomegaly, possible hepatic steatosis, hepatocellular disease. Patient was discharged back to [facility] on August 27. Patient was sent by EMS back to [facility] due to mental status changes and had a blood glucose of 44 give her 1 mg of glucagon 102, blood pressure 120/62, pulse ox 96% CBC was unremarkable. Electrolytes normal, BUN 56 and creatinine 1.19, blood sugar 144. EKG was accelerated junctional rhythm with occasional PVCs. No acute ST changes. Chest x-ray showed no acute abnormality. CAT scan of the brain showed no acute abnormality. Patient was admitted to cardiac stepdown unit but A-Team was called yesterday afternoon for hypotension and worsening mental status blood pressure was in the 70s over 40s and patient was status post 1.5 L of normal saline. She was tachycardic. Patient was seen by Dr. López and started on vancomycin and Zosyn, liver ultrasound and contacted Dr. Rome. Patient was then transferred to the intensive care unit where she is seen today. Patient is quite confused although she is awake and alert. 08/30: Patient remains in the intensive care unit with plans transferred to [facility] floor. Mentation is improved today. She is awake and alert. Speech is slow. She is able to answer questions appropriately. Blood culture blood culture came back group D enterococcus and patient was transitioned off vancomycin to daptomycin and consult will be added for Dr. Kasper. Repeat blood culture from August 29 showing no growth. Patient is also continued on Zosyn. Repeat blood work reveals WBC 9.1, hemoglobin 11, platelet count 204. Sodium 136, potassium 3.0 and has been replaced, chloride 103, CO2 29, BUN 49 and cre atinine 1.23. Blood sugar 178-237. Pulse ox is 96% on 4 L nasal cannula, afebrile, heart rate 78, blood pressure 96/64. If patient continues to show improvement and bacteremia/antibiotic as can be decided, Inocenciomary return to [facility] tomorrow or Thursday. REVIEW OF SYSTEMS Constitutional: No fever, no chills, no night sweats. No weight change. No weakness, fatigue or lethargy. No daytime sleepiness. EENT: No headache. No blurred vision or double vision, no loss of vision. No loss of Hearing, no ringing in the ears, no dizziness. No nasal drainage or congestion. No epistaxis. No sore throat. Lungs: No shortness of breath, cough, no sputum production. No wheezing. Cardiovascular: No chest pain, no lower extremity edema. No palpitations. No paroxysmal nocturnal dyspnea. No orthopnea. No lightheadedness or dizziness. No syncopal episodes. Abdominal: No abdominal pain. No nausea, vomiting. No diarrhea. No constipation. No bloody or tarry stools.. No loss of appetite. Genitourinary: No dysuria, increased frequency, urgency. No urinary retention. Musculoskeletal: No myalgias. No muscle weakness, no gait dysfunction, no frequent falls. No back pain. No neck pain. Integumentary: No wounds, no lesions. No rash or pruritus. No unusual brui sing. No change in hair or nails. Neurologic: No aphasia. No facial droop. Improved change in mentation. No head injury. No headache. No paralysis. No paresthesia. Psychiatric: No depression. No anxiety. No mood swings. Endocrine: No abnormal blood sugars. No weight change. No excessive sweating or thirst. No cold intolerance. PHYSICAL EXAMINATION Gen: This is a morbidly obese 75-year-old female. Patient is resting in ICU bed and appears to be in no acute distress. No respiratory distress is noted. HEENT: Head is atraumatic, normocephalic. Pupils equal, round. Sclerae is anicteric. NECK: Supple. No JVD. No lymphadenopathy. No thyromegaly. LUNGS: Clear to auscultation. No wheezes or rhonchi. No intercostal retractions. HEART: Irregular rate and rhythm. Systolic murmur. ABDOMEN: Soft. Bowel sounds are present. No masses. No tenderness. EXTREMITIES: Trace bilateral pedal edema. No calf tenderness. NEUROLOGICAL: Patient is awake, alert and oriented 3 Cranial nerves 2 through 12 are grossly intact. ASSESSMENT AND PLAN 1. Acute metabolic encephalopathy most likely secondary to hypoglycemia. Patient not yet back to her baseline. 2. Hypovolemic shock requiring IV fluid resuscitation and transferred to the intensive care unit. Consult with Dr. Hannah constantino. 3. Possible urinary tract infection. Patient has been started on IV antibiotics. 4. Hypokalemia status post replacement. 5. Rght lower extremity DVT. Continue eliquis. 6. Elevated liver function test most likely secondary to Covid 19 as she was normal on her past admission initially. Numbers are stable from August 15. 7. Chronic thrombocytopenia resolved. Continue to monitor. 8. Chronic hypoxic respiratory failure on oxygen at 2-3 L nasal cannula. Continue oxygen therapy. Pulmonary consult. 9. Paroxysmal atrial fibrillation. Continue flecainide 50 g twice daily, Lopressor 12.5 mg daily, eliquis 2.5 mg twice daily. 0. Diabetes mellitus type 2. Continue Levemir 40 units daily, NovoLog 3 units with breakfast and NovoLog scale before meals and at bedtime, Januvia 100 mg daily or equivalent. 11. Recent Covid 19 pneumonia with elevated inflammatory markers, stable. Continue albuterol inhaler as needed. 12. Chronic diastolic heart failure. Bumex and Zaroxolyn on hold. Cardiology consult. 13. Peptic ulcer disease and GI prophylaxis. Protonix 40 mg twice daily. 14. Stage II decubitus ulcers to the coccyx area. Wound Center consult. 15. DVT prophylaxis. Heparin drip for now and transition to eliquis. DISCHARGE PLAN RETURN TO [facility] FOR SUBACUTE REHAB on Thursday or Thursday. Impression and plan of care have been directed as dictated by the signing physician. Leeann Rose nurse practitioner acting as scribe for signing physician. Objective - Vital Signs Vital signs: Vital Signs Temp 98.4 F 08/30/20 08:00 Pulse 78 08/30/20 08:00 Resp 17 08/30/20 08:00 BP 96/64 08/30/20 08:00 Pulse Ox 96 08/30/20 08:00 Intake & Output 08/29/20 08/30/20 08/30/20 18:59 06:59 18:59 Intake Total 449.392 160 Output Total 465 800 Balance -15.608 -640 Weight 126.099 kg Intake: IV 240 160 0.9 @ 20 mL/hr 240 160 Intake, IV Titration 209.392 Amount Norepinephrine 4 mg In 209.392 Sodium Chloride 0.9% 250 ml @ 0.05 MCG/KG/MIN 24. 022 mls/hr IV .[id number] [facility] Rx#:[id number] Output: Urine 465 800 Other: Voiding Method Indwelling Catheter Indwelling Catheter Indwelling Catheter - Labs CBC & Chem 7: 08/30/20 04:12 08/30/20 04:12 Labs: Abnormal Lab Results - Last 24 Hours (Table) 08/29/20 08/29/20 08/29/20 Range/Units 11:26 16:31 20:40 Hgb (11.4-16.0) gm/dL MCH (25.0-35.0) pg MCHC (31.0-37.0) g/dL RDW (11.5-15.5) % Sodium (137-145) mmol/L Potassium (3.5-5.1) mmol/L BUN (7-17) mg/dL Creatinine (0.52-1.04) mg/dL Glucose (74-99) mg/dL POC Glucose (mg/dL) 123 H 126 H 178 H (75-99) mg/dL Calcium (8.4-10.2) mg/dL AST (14-36) U/L ALT (4-34) U/L Alkaline Phosphatase (38-126) U/L Total Protein (6.3-8.2) g/dL Albumin (3.5-5.0) g/dL 08/30/20 08/30/20 08/30/20 Range/Units 03:50 04:12 04:12 Hgb 11.0 L (11.4-16.0) gm/dL MCH 24.8 L (25.0-35.0) pg MCHC 29.5 L (31.0-37.0) g/dL RDW 24.3 H (11.5-15.5) % Sodium 136 L (137-145) mmol/L Potassium 3.0 L (3.5-5.1) mmol/L BUN 49 H (7-17) mg/dL Creatinine 1.23 H (0.52-1.04) mg/dL Glucose 197 H (74-99) mg/dL POC Glucose (mg/dL) 237 H (75-99) mg/dL Calcium 7.8 L (8.4-10.2) mg/dL AST 63 H (14-36) U/L ALT 77 H (4-34) U/L Alkaline Phosphatase 279 H (38-126) U/L Total Protein 5.1 L (6.3-8.2) g/dL Albumin 2.0 L (3.5-5.0) g/dL 08/30/20 Range/Units 06:59 Hgb (11.4-16.0) gm/dL MCH (25.0-35.0) pg MCHC (31.0-37.0) g/dL RDW (11.5-15.5) % Sodium (137-145) mmol/L Potassium (3.5-5.1) mmol/L BUN (7-17) mg/dL Creatinine (0.52-1.04) mg/dL Glucose (74-99) mg/dL POC Glucose (mg/dL) 191 H (75-99) mg/dL Calcium (8.4-10.2) mg/dL AST (14-36) U/L ALT (4-34) U/L Alkaline Phosphatase (38-126) U/L Total Protein (6.3-8.2) g/dL Albumin (3.5-5.0) g/dL Microbiology - Last 24 Hours (Table) 08/28/20 22:34 Blood Culture Gram Stain - Preliminary Blood Blood Culture - Preliminary Group D Enterococcus 08/29/20 02:20 Blood Culture - Preliminary Blood No Growth after 24 hours 08/28/20 22:15 Urine Culture - Final Urine,Catheterized 08/28/20 22:34 Blood Culture - Final Blood
[2020-08-30 14:29] LABS: Magnesium 2.2 mg/dL (1.6-2.3); Potassium 3.7 mmol/L (3.5-5.1)
[2020-08-30] MEDS: SODIUM CHLORIDE 0.9% 1,000 ML IV SCH (16:21)
[2020-08-30] MEDS: ASCORBIC ACID 500 MG TAB PO SCH (16:41)
[2020-08-30 16:52] LABS: Glucose,Whole Blood 188 mg/dL (75-99)
[2020-08-30 19:51] LABS: Glucose,Whole Blood 90 mg/dL (75-99)
[2020-08-30 20:39] LABS: Glucose,Whole Blood 93 mg/dL (75-99)
[2020-08-30] MEDS: INSULIN DETEMIR (LEVEMIR) 100 UNIT/ML SYR SQ SCH (20:42)
[2020-08-30] MEDS: MELATONIN 3 MG TABLET PO SCH (20:44)
[2020-08-30] MEDS ORDERED: ACETAMINOPHEN TAB 500 MG TAB PO PRN (22:28)
[2020-08-30] MEDS: Acetaminophen-Codeine 300-30mg TAB PO PRN (23:07)
[2020-08-30] MEDS ORDERED: IOPAMIDOL CONTRAST (ORAL USE) VIAL PO PRN (23:30)
[2020-08-31] MEDS: SODIUM CHLORIDE 0.9% 1,000 ML IV SCH ×2 (03:29→23:10)
[2020-08-31] MEDS: PIPERACILLIN-TAZOBACTAM 3.375 GM in SODIUM CHLORIDE 0.9% 100 ML IVPB SCH ×3 (05:15→21:24)
--- NOTE | 2020-08-31 06:37 | CONS ---
CONSULTATION DATE OF SERVICE: 08/30/2020 REASON FOR STAY: Enterococcus faecalis bacteremia. HISTORY OF PRESENT ILLNESS: The patient is a 75-year-old, female who was brought into the hospital and admitted to [facility] on 08/28/2020 for evaluation of mental status changes. The patient was noticed at the [facility] to be not herself. The patient was noticed to have a low blood sugar of 44. She did receive a dose of 1 mg of Glucagon and the patient was subsequently transferred to [facility] for further evaluation. On arrival to the ER, she was noticed to be awake, alert, oriented times zero. She was lethargic. Patient on presentation to the hospital was running a low-grade fever of 100.4 degrees Fahrenheit. The patient did have a white count of 10.2, repeat was 12.1 and is currently normal. The patient did have elevated BUN and creatinine with creatinine of 1.23. Liver enzymes are mildly elevated. Urine was not significantly positive, WBC. Urine drug screen positive for opiates. The patient's blood culture now showing group D Enterococcus that prompted this infectious disease consultation. Patient did have a chest x-ray, cardiomegaly with diffuse interstitial pattern. The patient currently denies having any distress. The patient knows she is in the hospital in the ICU. Patient denies having any chest pain or shortness of breath. Occasional cough. No nausea. No vomiting. No abdominal pain. No diarrhea. REVIEW OF SYSTEMS: Positive points have been mentioned in HPI. Rest of systems are negative. PAST MEDICAL HISTORY: Atrial fibrillation, heart failure, diabetes mellitus, osteoarthritis. PAST SURGICAL HISTORY: Bariatric surgery, hysterectomy, joint replacement. SOCIAL HISTORY: No history of smoking. Occasionally drinks. No drug use. FAMILY HISTORY: No pertinent findings noticed. ALLERGIES: CIPROFLOXACIN, DOXYCYCLINE, HYDROCHLOROTHIAZIDE, . MEDICATIONS: Currently include the patient is on Tylenol, Ventolin, Eliquis, Tessalon Perles, Bumex, vitamin D3, Questran, Solu-Cortef, Zosyn, zinc and daptomycin. PHYSICAL EXAMINATION: VITAL SIGNS: Blood pressure 123/64 with a pulse of 94, temperature 97.8, she is 93% on 4 L nasal cannula. GENERAL DESCRIPTION: Patient is an elderly female lying in bed in no distress. No tachypnea or accessory muscles of respiration use. HEENT: Examination shows pallor, no scleral icterus. Oral mucous membrane is dry. NECK: Trachea central, no thyromegaly. LUNGS: Unlabored breathing, decreased breath sounds at the bases. No wheeze. HEART: S1-S2, regular rate and rhythm. ABDOMEN: Soft, no tenderness. No guarding or rigidity. EXTREMITIES: No edema of the feet. SKIN: No rash or mass palpable. NEUROLOGICAL: Patient is awake, alert, oriented times three. Mood and affect normal. LABS: Hemoglobin is 11.9, white count 9.1, and repeat white count is 10.8. BUN of 49, creatinine 1.23. Potassium 3.0. Liver enzymes are elevated. Urine is negative. Chest x-ray with more of a CHF pattern. DIAGNOSTIC IMPRESSION/PLAN: 1. Patient with Enterococcus faecalis bacteremia, which is usually of or urinary source in this patient who presented to hospital with mental status changes, more likely related to her low blood sugar. The patient's urine is not significantly positive. Clinically doubt urinary source of this bacteremia. She did have mild elevated liver enzymes. Question of possible hepatitis, biliary or other abdominal source. 2. Patient with high risk of nephrotoxicity. 3. Borderline kidney function. PLAN: 1. We will obtain a CT of abdomen and pelvis with oral contrast only to rule out any intraabdominal pathology. 2. Patient to continue with daptomycin and Zosyn while waiting for the workup to be completed. Blood cultures repeated to document clearance of bacteremia. 3. Thank you for this consultation. Will follow this patient along with you. MMODL / IJN: [id number] /
[2020-08-31 07:24] LABS: Glucose,Whole Blood 145 mg/dL (75-99)
[2020-08-31] MEDS: ALBUTEROL HFA INHALER INHALATION PRN ×2 (07:29→15:43)
[2020-08-31] MEDS: INSULIN ASPART (NovoLOG) 100 UNIT/ML VIAL SQ SCH ×7 (07:34→21:25)
[2020-08-31] MEDS: IOPAMIDOL CONTRAST (ORAL USE) VIAL PO PRN ×2 (07:55→08:24)
--- NOTE | 2020-08-31 09:36 | P.CONS ---
History of Present Illness - Reason for Consult Consult date: 08/31/20 wound care - History of Present Illness This is a 75-year-old patient being seen by the wound care center on [address]. for nonhealing ulcerations to the left medial thigh, left lateral thigh and coccyx. Patient has multiple ulcerations that are stage II with granulation tissue throughout the wound bed and moderate Slough, nonviable tissue noted. The wound edges are attached to the wound base. It appeared wound shows excoriation and maceration. The patient states that the ulcerations have been there since June. In June she was hospitalized with cold and was sent to [facility]. Patient was seen last week and ordered Triad which she said did help. She continues to complain of pain and discomfort to the site. After discharge patient states that she was unsure what was applied to the site. She however does not think that it was Triad. Patient's past medical history significant for diabetes, heart failure, atrial fibrillation, also arthritis. She is a lifelong nonsmoker. Review Of Systems: Constitutional: No fever, no chills, no night sweats. No weight change. No weakness, fatigue or lethargy. No daytime sleepiness. Integumentary:reports wounds, no lesions. No rash or pruritus. No unusual bruising. No change in hair or nails. Physical exam: General Appearance: Alert, cooperative, no distress, appears stated age. Skin: See HPI all other Skin color, texture, tugor normal, no rashes or lesions. Neurologic: Alert oriented x3 Assessment/plan: 1. Nonhealing ulceration with fatty layer exposure coccyx. Apply triad to the site daily. Turn patient every 2 hours. Avoid incontinence. Utilize a waffle cushion for sitting. 2. Nonhealing ulceration to the left lower extremity with fat layer exposure 3. Diabetes mellitus with skin ulcer Thank for the consultation any questions please contact the wound care center DNP note has been reviewed and discussed with Dr. Pardo and the impression and plan of care has been directed as dictated. Past Medical History Past Medical History: Atrial Fibrillation, Heart Failure, Diabetes Mellitus, Osteoarthritis (OA) Additional Past Medical History / Comment(s): states SOB, back pain-receiving physical therapy., has Lap Band (does not think there is fluid in it), LITTLE TRAVERSE, See Cardiology H & P. History of Any Multi-Drug Resistant Organisms: None Reported Past Surgical History: Bariatric Surgery, Hysterectomy, Joint Replacement, Orthopedic Surgery Additional Past Surgical History / Comment(s): katie knee replacements,katie knee arthroscopies,katie ovaries removed,lap band placed x 2-"doesn't think there is fluid is present", cataracts. Past Anesthesia/Blood Transfusion Reactions: Previous Problems w/ Anesthesia, Family History of Problems w/ Anesthesia, Motion Sickness Additional Past Anesthesia/Blood Transfusion Reaction / Comm: states she was alert when I was getting put under and the tube going into my throat and I panicked, trouble waking up with general anesthesia. mother-ponv Past Psychological History: Depression Additional Psychological History / Comment(s): past depression-denies problem now. Smoking Status: Never smoker Past Alcohol Use History: Occasional Past Drug Use History: None Reported Additional Drug Use History / Comment(s): HX OF CBD OIL USE. - Past Family History Mother Additional Family Medical History / Comment(s): breast,bladder,lung Father Family Medical History: No Reported History Medications and Allergies Home Medications Medication Instructions Recorded Confirmed Type Flecainide [Tambocor] 50 mg PO BID@0800,1600 10/20/19 08/28/20 History Cholecalciferol (Vitamin D3) 125 mcg PO DAILY@0800 07/09/20 08/28/20 History [Vitamin D3 (5000 Iu)] Diclofenac Sodium [Voltaren 2 gm TOPICAL QID PRN 07/09/20 08/28/20 History Arthritis Pain 1% Gel] Albuterol Inhaler [Ventolin Hfa 2 puff INHALATION RT-Q6H PRN 07/16/20 08/28/20 History Inhaler] Ascorbic Acid [Vitamin C] 1,000 mg PO DAILY@1600 08/22/20 08/28/20 History Benzonatate [Tessalon Perles] 100 mg PO TID@0800,1200,1700 08/22/20 08/28/20 History Bumetanide [BUMEX] 1 mg PO BID@0800,1700 08/22/20 08/28/20 History Insulin Aspart [NovoLOG Flexpen] 3 units SQ DAILY@0700 08/22/20 08/28/20 History Insulin Aspart [NovoLOG Flexpen] 6 units SQ AC-BID@1100,1600 08/22/20 08/28/20 History Insulin Aspart [NovoLOG Flexpen] See Protocol SQ ACHS 08/22/20 08/28/20 History Insulin Glargine,Hum.rec.anlog 40 unit SQ HS@199908/22/20 08/28/20 History [Lantus Solostar] Magnesium Hydroxide [Milk of 7,200 mg PO Q48H PRN 08/22/20 08/28/20 History Magnesia Concentrate] Metoprolol Tartrate [Lopressor] 12.5 mg PO DAILY@0600 08/22/20 08/28/20 History Oxymetazoline 0.05% Nasl Waddy 2 spray EA NOSTRIL BID@0800,1600 08/22/20 08/28/20 History [Afrin 0.05% Nasal Waddy] SILVER sulfADIAZINE CREAM 1 applic TOPICAL BID 08/22/20 08/28/20 History [Silvadene Cream] Zinc Sulfate [Orazinc] 220 mg PO DAILY@0600 08/22/20 08/28/20 History Apixaban [Eliquis] 5 mg PO BID@06,199908/28/20 08/28/20 History Cholestyramine (with Sugar) 4 gm PO BID@0800,1600 08/28/20 08/28/20 History [Questran Packet] Melatonin 6 mg PO HS@199908/28/20 08/28/20 History Omeprazole 20 mg PO DAILY@0600 08/28/20 08/28/20 History Periguard Ointment 1 applic TOPICAL DAILY PRN 08/28/20 08/28/20 History Spironolactone [Aldactone] 12.5 mg PO DAILY@0600 08/28/20 08/28/20 History Allergies Allergy/AdvReac Type Severity Reaction Status Date / Time adhesive tape Allergy tears skin Verified 08/28/20 15:06 ciprofloxacin [From Cipro] Allergy Rash/Hives Verified 08/28/20 15:06 doxycycline Allergy Rash/Hives Verified 08/28/20 15:06 hydrochlorothiazide Allergy Unknown Verified 08/28/20 15:06 pioglitazone [From Actos] Allergy Swelling Verified 08/28/20 15:06 "HCL" AdvReac Cough Uncoded 08/28/20 15:06 Physical Exam Vitals: Vital Signs Temp Pulse Resp BP Pulse Ox 08/31/20 08:00 68 17 08/31/20 07:35 97.4 F L 68 17 106/68 99 08/31/20 02:44 97.5 F L 66 99/62 96 08/30/20 22:00 94 18 08/30/20 20:00 97.8 F 94 18 103/64 93 L 08/30/20 14:00 97.9 F 81 17 114/59 94 L Intake and Output 08/30/20 08/31/20 08/31/20 22:59 06:59 14:59 Intake Total 160 Output Total 500 1100 Balance -340 -1100 Intake: IV 160 0.9 @ 20 mL/hr 160 Output: Urine 500 1100 Other: Voiding Method Indwelling Catheter Indwelling Catheter # Bowel Movements 1 Results CBC & Chem 7: 08/30/20 04:12 08/30/20 12:28 Labs: Abnormal Lab Results - Last 24 Hours (Table) 08/30/20 08/30/20 08/31/20 Range/Units 11:31 16:50 07:19 POC Glucose (mg/dL) 201 H 188 H 145 H (75-99) mg/dL Microbiology - Last 24 Hours (Table) 08/29/20 02:20 Blood Culture - Preliminary Blood No Growth after 48 hours 08/28/20 22:15 Urine Culture - Final Urine,Catheterized Vianey albicans 08/28/20 22:34 Blood Culture Gram Stain - Preliminary Blood Blood Culture - Preliminary Group D Enterococcus
--- NOTE | 2020-08-31 09:45 | CT ---
EXAMINATION TYPE: CT abdomen pelvis wo con DATE OF EXAM: 08/31/2020 COMPARISON: None INDICATION: Enterococcus bacteremia DLP: 1729.4 mGycm, Automated exposure control for dose reduction was used. CONTRAST: 0 mL of Isovue 300. Study performed with Oral Contrast TECHNIQUE: Axial images were obtained from above the diaphragm to the pubic rami in the axial plane a t 5 mm thick sections. Reconstructed images are reviewed on the computer in the coronal plane. FINDINGS: Limited CT sections are obtained the lung bases. Patchy infiltrates at the bilateral lung bases. Aty pical pneumonia should be considered. Pulmonary fibrosis could be considered. Note is made of some co ronary artery calcification. CT ABDOMEN: Ascites is present adjacent to the liver. A lap band is present. An anterior abdominal wa ll hernia in the periumbilical region is present. The opening is somewhat indistinct but appears to b e approximately 2.2 cm. No loops of bowel are involved. Liver: Normal Spleen: Normal Pancreas: Fatty infiltrated. Adrenal glands: The adrenal glands are normal. Gallbladder: Not identified. Kidneys: r there is a 7 mm hyperdensity within the inferior lateral left kidney could be a small antonia omyolipoma.. No hydronephrosis is present. No cysts are present. No renal stones are identified. Aorta: Vascular calcification is within the aorta. Inferior vena cava: Normal. CT PELVIS: Small amount of free fluid is within the pelvis. Loops of bowel within the abdomen and pelvis are normal. Scattered contrast within the colon and di stal small bowel loops. There are loops of bowel which are incompletely distended or lack oral contr ast limiting their evaluation. Appendix: Normal as visualized. Urinary bladder: Decompressed with a Knight catheter. Genitourinary structures: Uterus and ovaries are not identified. Osseous structures: No suspicious lytic or sclerotic lesions. Degenerative disc changes are within th e upper lumbar spine. Facet changes are through the lumbar spine. IMPRESSIONS: 1. Bilateral lung base infiltrates. Correlate for atypical pneumonia. Some underlying pulmonary fibr osis may be present. 2. Ascites. 3. Periumbilical fat-containing hernia.
[2020-08-31] MEDS: PANTOPRAZOLE 40 MG TABLET PO SCH (10:47)
[2020-08-31] MEDS: ASCORBIC ACID 500 MG TAB PO SCH (10:47)
[2020-08-31] MEDS: BENZONATATE 100 MG CAP PO SCH ×3 (10:47→17:16)
[2020-08-31] MEDS: METOPROLOL TARTRATE 25 MG TAB PO SCH ×2 (10:47→21:25)
[2020-08-31] MEDS: APIXABAN 5 MG TAB PO SCH ×2 (10:47→21:25)
[2020-08-31] MEDS: ZINC SULFATE 220 MG CAP PO SCH (10:48)
[2020-08-31] MEDS: CHOLECALCIFEROL 25 MCG (1000 IU) TABLET PO SCH (10:48)
[2020-08-31] MEDS: BUMETANIDE 1 MG TAB PO SCH ×2 (10:48→17:16)
[2020-08-31] MEDS: CHOLESTYRAMINE (WITH SUGAR) 4 GM PACKET PO SCH ×2 (10:49→17:16)
[2020-08-31] MEDS: FLECAINIDE 50 MG TAB PO SCH ×2 (10:49→17:16)
[2020-08-31] MEDS: OXYMETAZOLINE 0.05% NASL SPRAY 1 SPRAY BOTTLE EA NOSTRIL SCH ×2 (10:50→17:21)
[2020-08-31 11:27] LABS: Glucose,Whole Blood 132 mg/dL (75-99)
[2020-08-31] MEDS: HYDROPHILIC CREAM 180 GM TUBE TOPICAL SCH (11:35)
[2020-08-31] MEDS: Acetaminophen-Codeine 300-30mg TAB PO PRN (12:05)
--- NOTE | 2020-08-31 12:28 | P.PN ---
Subjective Progress Note Date: 08/31/20 HISTORY OF PRESENT ILLNESS This is a 75-year-old female patient of Dr. Betancur with past medical history significant for COVID-19 pneumonia diagnosed July 17 with a month long hospitalization, chronic hypoxic respiratory failure secondary to Covid, paroxysmal atrial fibrillation on eliquis, diabetes mellitus type 2, chronic diastolic heart failure, peptic ulcer disease, chronic anemia. Patient was discharged from the hospital and when to [facility] for subacute rehab. Patient was diagnosed with a DVT in her right lower extremity and readmitted to the hospital treated for acute kidney injury with metabolic acidosis secondary to postobstructive diuresis and nephrotoxic agents, acute PE was ruled out by VQ scan. Echocardiogram at that time revealed EF 55-60% with mild aortic stenosis, mild mitral regurgitation, mild tricuspid regurgitation. She also had abdominal ultrasound as she has chronically elevated liver function tests since her Covid diagnosis which revealed splenomegaly, possible hepatic steatosis, hepatocellular disease. Patient was discharged back to [facility] on August 27. Patient was sent by EMS back to [facility] due to mental status changes and had a blood glucose of 44 give her 1 mg of glucagon 102, blood pressure 120/62, pulse ox 96% CBC was unremarkable. Electrolytes normal, BUN 56 and creatinine 1.19, blood sugar 144. EKG was accelerated junctional rhythm with occasional PVCs. No acute ST changes. Chest x-ray showed no acute abnormality. CAT scan of the brain showed no acute abnormality. Patient was admitted to cardiac stepdown unit but A-Team was called yesterday afternoon for hypotension and worsening mental status blood pressure was in the 70s over 40s and patient was status post 1.5 L of normal saline. She was tachycardic. Patient was seen by Dr. López and started on vancomycin and Zosyn, liver ultrasound and contacted Dr. Rome. Patient was then transferred to the intensive care unit where she is seen today. Patient is quite confused although she is awake and alert. 08/30: Patient remains in the intensive care unit with plans transferred to [facility] floor. Mentation is improved today. She is awake and alert. Speech is slow. She is able to answer questions appropriately. Blood culture blood culture came back group D enterococcus and patient was transitioned off vancomycin to daptomycin and consult will be added for Dr. Kasper. Repeat blood culture from August 29 showing no growth. Patient is also continued on Zosyn. Repeat blood work reveals WBC 9.1, hemoglobin 11, platelet count 204. Sodium 136, potassium 3.0 and has been replaced, chloride 103, CO2 29, BUN 49 and cre atinine 1.23. Blood sugar 178-237. Pulse ox is 96% on 4 L nasal cannula, afebrile, heart rate 78, blood pressure 96/64. If patient continues to show improvement and bacteremia/antibiotic as can be decided, Fransico return to [facility] tomorrow or Thursday. 08/31: Patient has been seen by infectious disease. He doubts that urinary source cause bacteremia. He has ordered a CAT scan of the abdomen and pelvis which revealed bilateral lung base infiltrates correlate for atypical pneumonia. Some underlying pulmonary fibrosis may be present. Ascites. Periumbilical fat-containing hernia. Patient has been seen by wound care team for ulceration to the coccyx and left lower extremity. Patient's mental status is improved but not back to her baseline. She has been afebrile, heart rate 68, blood pressure 106/68, pulse ox 99% on 4 L nasal cannula. Anticipate discharge back to subacute rehab on Thursday. Blood culture is positive for group D enterococcus. REVIEW OF SYSTEMS Constitutional: No fever, no chills, no night sweats. No weight change. No weakness, fatigue or lethargy. No daytime sleepiness. EENT: No headache. No blurred vision or double vision, no loss of vision. No loss of Hearing, no ringing in the ears, no dizziness. No nasal drainage or congestion. No epistaxis. No sore throat. Lungs: No shortness of breath, cough, no sputum production. No wheezing. Cardiovascular: No chest pain, no lower extremity edema. No palpitations. No paroxysmal nocturnal dyspnea. No orthopnea. No lightheadedness or dizziness. No syncopal episodes. Abdominal: No abdominal pain. No nausea, vomiting. No diarrhea. No constipation. No bloody or tarry stools.. No loss of appetite. Genitourinary: No dysuria, increased frequency, urgency. No urinary retention. Musculoskeletal: No myalgias. No muscle weakness, no gait dysfunction, no frequent falls. No back pain. No neck pain. Integumentary: No wounds, no lesions. No rash or pruritus. No unusual bruising. No change in hair or nails. Neurologic: No aphasia. No facial droop. Improved change in mentation. No head injury. No headache. No paralysis. No paresthesia. Psychiatric: No depression. No anxiety. No mood swings. Endocrine: No abnormal blood sugars. No weight change. No excessive sweating or thirst. No cold intolerance. PHYSICAL EXAMINATION Gen: This is a morbidly obese 75-year-old female. Patient is resting in bed and appears to be in no acute distress. No respiratory distress is noted. HEENT: Head is atraumatic, normocephalic. Pupils equal, round. Sclerae is anicteric. NECK: Supple. No JVD. No lymphadenopathy. No thyromegaly. LUNGS: Clear to auscultation. No wheezes or rhonchi. No intercostal retractions. HEART: Irregular rate and rhythm. Systolic murmur. ABDOMEN: Soft. Bowel sounds are present. No masses. No tenderness. EXTREMITIES: Trace bilateral pedal edema. No calf tenderness. NEUROLOGICAL: Patient is awake, alert and oriented 3 Cranial nerves 2 through 12 are grossly intact. ASSESSMENT AND PLAN 1. Acute metabolic encephalopathy most likely secondary to hypoglycemia. Patient not yet back to her baseline. 2. Hypovolemic shock requiring IV fluid resuscitation and transferred to the intensive care unit. Consult with Dr. Rome appreciated. 3. Possible urinary tract infection. Patient has been started on IV antibiotics. 4. Hypokalemia status post replacement. 5. Bacteremia. Waiting for blood cultures to finalize. Unknown source of bacteremia. Consult with Dr. Kasper appreciated. Patient is currently on daptomycin. 6. Rght lower extremity DVT. Continue eliquis. 7. Elevated liver function test most likely secondary to Covid 19 as she was normal on her past admission initially. Numbers are stable from August 15. 8. Chronic thrombocytopenia resolved. Continue to monitor. 9. Chronic hypoxic respiratory failure on oxygen at 2-3 L nasal cannula. Co ntinue oxygen therapy. Pulmonary consult. 10. Paroxysmal atrial fibrillation. Continue flecainide 50 g twice daily, Lopressor 12.5 mg daily, eliquis 2.5 mg twice daily. 11. Diabetes mellitus type 2. Continue Levemir 40 units daily, NovoLog 3 units with breakfast and NovoLog scale before meals and at bedtime, Januvia 100 mg daily or equivalent. 12. Recent Covid 19 pneumonia with elevated inflammatory markers, stable. Continue albuterol inhaler as needed. 13. Chronic diastolic heart failure. Bumex and Zaroxolyn on hold. Cardiology consult. 14. Peptic ulcer disease and GI prophylaxis. Protonix 40 mg twice daily. 15. Stage II decubitus ulcers to the coccyx area. Wound Center consult. 16. DVT prophylaxis. Heparin drip for now and transition to eliquis. DISCHARGE PLAN RETURN TO SUBACUTE REHAB on Thursday. Impression and plan of care have been directed as dictated by the signing physician. Leeann Rose nurse practitioner acting as scribe for signing physician. Objective - Vital Signs Vital signs: Vital Signs Temp 97.4 F L 08/31/20 07:35 Pulse 68 08/31/20 07:35 Resp 17 08/31/20 07:35 BP 106/68 08/31/20 07:35 Pulse Ox 99 08/31/20 07:35 Intake & Output 08/30/20 08/31/20 08/31/20 18:59 06:59 18:59 Intake Total 160 Output Total 500 Balance -340 Intake: IV 160 0.9 @ 20 mL/hr 160 Output: Urine 500 Other: Voiding Method Indwelling Catheter Indwelling Catheter # Bowel Movements 1 - Labs CBC & Chem 7: 08/30/20 04:12 08/30/20 12:28 Labs: Abnormal Lab Results - Last 24 Hours (Table) 08/30/20 08/30/20 08/31/20 Range/Units 11:31 16:50 07:19 POC Glucose (mg/dL) 201 H 188 H 145 H (75-99) mg/dL Microbiology - Last 24 Hours (Table) 08/29/20 02:20 Blood Culture - Preliminary Blood No Growth after 48 hours 08/28/20 22:15 Urine Culture - Final Urine,Catheterized Vianey albicans 08/28/20 22:34 Blood Culture Gram Stain - Preliminary Blood Blood Culture - Preliminary Group D Enterococcus
[2020-08-31 16:40] LABS: Glucose,Whole Blood 116 mg/dL (75-99)
--- NOTE | 2020-08-31 16:52 | P.PN ---
Subjective Progress Note Date: 08/31/20 Principal diagnosis: Altered mental status, hypoglycemia, recovered 75-year-old female, who presents to the emergency department, on August 28, at 12:51 PM, with mental status changes. The patient was brought in from one of the local nursing homes. The patient was recently in the hospital between August 22, and August 27. The patient apparently was found to have hypoglycemia, with a blood sugar of 44, and she received 1 ampule of glucagon. I was notified by the on-call hospitalist, that the patient was hypotensive, looking very poorly, and had in addition to hypoglycemia, had hypotension. She received a couple liters of fluid and I agreed to have the patient transferred to the intensive care unit. Initially, the patient was on norepinephrine, but that has been turned off. This is a patient well-known to our service. She was previously inpatient between July 16 and August 13, with an episode of coronavirus infection. Currently, she is on 4 L nasal cannula, and saline at 20 mL an hour. She is much more awake and alert, and as I mentioned, the norepinephrine has been weaned off. White count is 12.9, hemoglobin 12, hematocrit 38.9, and platelet count 295,000. Sodium 140, calcium 3, chlorides 105, CO2 29, anion gap 6, with a BUN of 51, and a creatinine of 1.20. The troponin was 0.3, and calcium of 7.7. Chest x-ray showed evidence of cardiomegaly, with a diffuse interstitial pattern, consistent with pulmonary fibrosis. This is probably most consistent with a residual from her recent COVID 19 pneumonia. On 08/30/2000 patient seen in follow-up in the intensive care unit, her mentation is much improved since admission, she is awake and alert, her speech is somewhat slow, but she is answering questions appropriately, she is oriented times place and person. No acute events overnight, on 4 L of oxygen her pulse ox is 97%, no fever or chills, blood pressure is 110/60, lung sounds are clear. No nausea or vomiting, no abdominal pain, patient is tolerating oral intake. She's been receiving any IV fluids, his labs have been reviewed showing white blood cell count of 9.1, hemoglobin of 11, sodium is 136, potassium is 3.0, BUN 49 creatinine of 1.23, LFTs are relatively stable. Urinalysis did not show definite sign of infection, urine drug screen was positive for opiates. Blood culture showed group D enterococcus, follow blood culture has been sent and he remains negative at the 24-hour ada, urine culture has been negative. Patient is currently on daptomycin and Zosyn. She remains on Eliquis for history of chronic A. fib. The patient is seen today 08/31/2020 in follow-up on the regular medical floor. She is currently sitting up in bed. Awake and alert in no acute distress. Maintaining O2 saturations in the 90s on 3 L/m per nasal cannula. 0.9 normal saline at 75 ML's per hour. Computed tomography scan of the abdomen and pelvis reveals bilateral infiltrates in lung bases. Ascites.. Umbilical fat- containing hernia. Initial blood cultures positive for enterococcus faecium VRE. Blood glucose 116. Reactive protein 3.2. Pro-calcitonin 0.47. She remains on daptomycin and Zosyn. Objective - Vital Signs Vital signs: Vital Signs Temp 97.6 F 08/31/20 12:59 Pulse 64 08/31/20 12:59 Resp 18 08/31/20 12:59 BP 114/69 08/31/20 12:59 Pulse Ox 94 L 08/31/20 12:59 Intake & Output 08/30/20 08/31/20 08/31/20 18:59 06:59 18:59 Intake Total 160 Output Total 500 1250 Balance -340 -1250 Intake: IV 160 0.9 @ 20 mL/hr 160 Output: Urine 500 1250 Other: Voiding Method Indwelling Catheter Indwelling Catheter Indwelling Catheter # Bowel Movements 1 - Exam GENERAL EXAM: Alert, very pleasant, morbidly obese 75-year-old white female, currently on 4 L of oxygen, pulse ox of 94% comfortable in no apparent distress. HEAD: Normocephalic/atraumatic. EYES: Normal reaction of pupils, equal size. Conjunctiva pink, sclera white. NOSE: Clear with pink turbinates. THROAT: No erythema or exudates. NECK: No masses, no JVD, no thyroid enlargement, no adenopathy. CHEST: No chest wall deformity. Symmetrical expansion. LUNGS: Equal air entry with crackles in the bilateral posterior bases CVS: Irregular rate and rhythm, normal S1 and S2, no gallops, no murmurs, no rubs ABDOMEN: Soft, nontender. No hepatosplenomegaly, normal bowel sounds, no guarding or rigidity. EXTREMITIES: No clubbing, no edema, no cyanosis, 2+ pulses and upper and lower extremities. MUSCULOSKELETAL: Muscle strength and tone normal. SPINE: No scoliosis or deformity SKIN: No rashes CENTRAL NERVOUS SYSTEM: Alert and oriented -3. No focal deficits, tone is normal in all 4 extremities. PSYCHIATRIC: Alert and oriented -3. Appropriate affect. Intact judgment and insight. - Labs CBC & Chem 7: 08/30/20 04:12 08/30/20 12:28 Labs: Abnormal Lab Results - Last 24 Hours (Table) 08/30/20 08/31/20 08/31/20 Range/Units 16:50 06:13 06:13 POC Glucose (mg/dL) 188 H (75-99) mg/dL C-Reactive Protein 3.2 H (0.0-0.8) mg/dL Procalcitonin 0.47 H (0.02-0.09) ng/mL 08/31/20 08/31/20 08/31/20 Range/Units 07:19 11:25 16:39 POC Glucose (mg/dL) 145 H 132 H 116 H (75-99) mg/dL C-Reactive Protein (0.0-0.8) mg/dL Procalcitonin (0.02-0.09) ng/mL Microbiology - Last 24 Hours (Table) 08/28/20 22:34 Blood Culture Gram Stain - Final Blood Blood Culture - Final Enterococcus faecium VRE 08/29/20 02:20 Blood Culture - Preliminary Blood No Growth after 48 hours 08/28/20 22:15 Urine Culture - Final Urine,Catheterized Vianey albicans Assessment and Plan Assessment: 1. Acute status changes, multifactorial, possibly related to hypoglycemia and possibility of sepsis which has currently improved 2. Group D enterococcus bacteremia, covered with daptomycin and Zosyn, was given a dose of vancomycin which is currently discontinued 3. Hypotension, possibly related to sepsis, vitamin depletion and dehydration, currently improved 4. Prolonged admission for COVID19 pneumonia from 07/16/2020 through 08/13/2020 5. Possible urinary tract infection. Culture has been negative 6. Hypokalemia, improved 7. History of chronic atrial fibrillation on Eliquis 8. Recent diagnosis of left leg DVT, and since then her Eliquis dose was ad justed to 5 mg twice daily from 2.5 mg twice daily 9. History of CHF 10. History of diabetes mellitus type 2 11. Morbid obesity 12. History of osteoarthritis 13. History of bariatric surgery. Plan: The patient was seen and evaluated by Dr. Rome Currently stable from the pulmonary standpoint Titrate down the FiO2 as tolerated Antibiotics per ID services We will see as needed I, the cosigning physician, performed a history & physical examination of the patient. Lungs sounds eczema bilateral posterior bases. Maintaining good O2 saturations in the 90s on 4 L/m per nasal cannula. I discussed the assessment and plan of care with my nurse practitioner, Luisa Lubin. I attest to the above note as dictated by her.
--- NOTE | 2020-08-31 18:54 | PN ---
PROGRESS NOTE DATE OF SERVICE: 08/31/2020 REASON FOR FOLLOWUP: Enterococcus faecalis bacteremia. INTERVAL HISTORY: The patient is currently afebrile. The patient is breathing comfortably. Denies having any chest pain or shortness of breath or cough. No abdominal pain or diarrhea. PHYSICAL EXAMINATION: Blood pressure 142/69, pulse of 64, temperature 97.6. She is 94% on 4 L nasal cannula. General description is an elderly female lying in bed in no distress. RESPIRATORY SYSTEM: Unlabored breathing with decreased breath sounds at the base. No wheeze. HEART: S1, S2. Regular rate and rhythm. ABDOMEN: Soft. No tenderness. LABS: White count normal. Creatinine is 1.23. CT abdomen and pelvis did not any abnormality. Procalcitonin is 0.47. Repeat blood culture so far negative. DIAGNOSTIC IMPRESSION AND PLAN: Patient with VRE bacteremia without any clear focus, with abdominal CT negative. Urine showing Vianey albicans. Blood culture repeat is currently pending. To continue with daptomycin and nifedipine. Blood culture negative. any further workup; however, would benefit from an echo to rule out any endovascular source. Continue with supportive care. MMODL / IJN: [id number] /
[2020-08-31 20:19] LABS: Glucose,Whole Blood 140 mg/dL (75-99)
[2020-08-31] MEDS: INSULIN DETEMIR (LEVEMIR) 100 UNIT/ML SYR SQ SCH (20:24)
[2020-08-31] MEDS: MELATONIN 3 MG TABLET PO SCH (20:25)
[2020-09-01] MEDS: SODIUM CHLORIDE 0.9% 1,000 ML IV SCH ×2 (05:58→22:29)
[2020-09-01 07:20] LABS: Glucose,Whole Blood 28 mg/dL (75-99)
[2020-09-01 07:27] LABS: Glucose,Whole Blood 30 mg/dL (75-99)
[2020-09-01] MEDS ORDERED: DEXTROSE 50% SYRINGE 50 ML IVP STA (07:32)
[2020-09-01] MEDS: PIPERACILLIN-TAZOBACTAM 3.375 GM in SODIUM CHLORIDE 0.9% 100 ML IVPB SCH ×3 (07:33→22:38)
[2020-09-01 07:36] LABS: Glucose,Whole Blood 155 mg/dL (75-99)
[2020-09-01] MEDS: INSULIN ASPART (NovoLOG) 100 UNIT/ML VIAL SQ SCH ×7 (07:43→22:30)
[2020-09-01] MEDS: BENZONATATE 100 MG CAP PO SCH ×3 (10:18→16:51)
[2020-09-01] MEDS: APIXABAN 5 MG TAB PO SCH ×2 (10:18→22:29)
[2020-09-01] MEDS: CHOLECALCIFEROL 25 MCG (1000 IU) TABLET PO SCH (10:18)
[2020-09-01] MEDS: PANTOPRAZOLE 40 MG TABLET PO SCH (10:19)
[2020-09-01] MEDS: BUMETANIDE 1 MG TAB PO SCH ×2 (10:19→16:51)
[2020-09-01] MEDS: CHOLESTYRAMINE (WITH SUGAR) 4 GM PACKET PO SCH ×2 (10:19→17:14)
[2020-09-01] MEDS: HYDROPHILIC CREAM 180 GM TUBE TOPICAL SCH (10:19)
[2020-09-01] MEDS: FLECAINIDE 50 MG TAB PO SCH ×2 (10:19→16:51)
[2020-09-01] MEDS: ZINC SULFATE 220 MG CAP PO SCH (10:19)
[2020-09-01] MEDS: METOPROLOL TARTRATE 25 MG TAB PO SCH ×2 (10:19→22:29)
[2020-09-01] MEDS: OXYMETAZOLINE 0.05% NASL SPRAY 1 SPRAY BOTTLE EA NOSTRIL SCH ×2 (10:53→17:14)
[2020-09-01 11:50] LABS: Glucose,Whole Blood 54 mg/dL (75-99)
[2020-09-01] MEDS: ALBUTEROL HFA INHALER INHALATION PRN ×2 (11:57→15:14)
[2020-09-01 12:06] LABS: Glucose,Whole Blood 68 mg/dL (75-99)
[2020-09-01 12:19] LABS: Glucose,Whole Blood 65 mg/dL (75-99)
[2020-09-01 12:38] LABS: Glucose,Whole Blood 84 mg/dL (75-99)
[2020-09-01] MEDS ORDERED: FUROSEMIDE 10 MG/ML 4 ML VIAL IV STA (13:40)
[2020-09-01 14:33] LABS: Glucose,Whole Blood 115 mg/dL (75-99)
--- NOTE | 2020-09-01 15:19 | P.PN ---
Subjective Progress Note Date: 09/01/20 Principal diagnosis: Altered mental status, hypoglycemia, recovered 75-year-old female, who presents to the emergency department, on August 28, at 12:51 PM, with mental status changes. The patient was brought in from one of the local nursing homes. The patient was recently in the hospital between August 22, and August 27. The patient apparently was found to have hypoglycemia, with a blood sugar of 44, and she received 1 ampule of glucagon. I was notified by the on-call hospitalist, that the patient was hypotensive, looking very poorly, and had in addition to hypoglycemia, had hypotension. She received a couple liters of fluid and I agreed to have the patient transferred to the intensive care unit. Initially, the patient was on norepinephrine, but that has been turned off. This is a patient well-known to our service. She was previously inpatient between July 16 and August 13, with an episode of coronavirus infection. Currently, she is on 4 L nasal cannula, and saline at 20 mL an hour. She is much more awake and alert, and as I mentioned, the norepinephrine has been weaned off. White count is 12.9, hemoglobin 12, hematocrit 38.9, and platelet count 295,000. Sodium 140, calcium 3, chlorides 105, CO2 29, anion gap 6, with a BUN of 51, and a creatinine of 1.20. The troponin was 0.3, and calcium of 7.7. Chest x-ray showed evidence of cardiomegaly, with a diffuse interstitial pattern, consistent with pulmonary fibrosis. This is probably most consistent with a residual from her recent COVID 19 pneumonia. On 08/30/2000 patient seen in follow-up in the intensive care unit, her mentation is much improved since admission, she is awake and alert, her speech is somewhat slow, but she is answering questions appropriately, she is oriented times place and person. No acute events overnight, on 4 L of oxygen her pulse ox is 97%, no fever or chills, blood pressure is 110/60, lung sounds are clear. No nausea or vomiting, no abdominal pain, patient is tolerating oral intake. She's been receiving any IV fluids, his labs have been reviewed showing white blood cell count of 9.1, hemoglobin of 11, sodium is 136, potassium is 3.0, BUN 49 creatinine of 1.23, LFTs are relatively stable. Urinalysis did not show definite sign of infection, urine drug screen was positive for opiates. Blood culture showed group D enterococcus, follow blood culture has been sent and he remains negative at the 24-hour ada, urine culture has been negative. Patient is currently on daptomycin and Zosyn. She remains on Eliquis for history of chronic A. fib. The patient is seen today 08/31/2020 in follow-up on the regular medical floor. She is currently sitting up in bed. Awake and alert in no acute distress. Maintaining O2 saturations in the 90s on 3 L/m per nasal cannula. 0.9 normal saline at 75 ML's per hour. Computed tomography scan of the abdomen and pelvis reveals bilateral infiltrates in lung bases. Ascites.. Umbilical fat- containing hernia. Initial blood cultures positive for enterococcus faecium VRE. Blood glucose 116. Reactive protein 3.2. Pro-calcitonin 0.47. She remains on daptomycin and Zosyn. The patient is seen today 09/01/2020 in follow-up on the regular medical floor. She is currently resting flat in bed. Awake and alert in no acute distress. She is maintaining O2 saturation in the 90s on 5 L/m per nasal cannula. Follow- up blood cultures reveal no growth. Blood glucose 115. Remains on daptomycin and Zosyn. Anticoagulated with Eliquis. Objective - Vital Signs Vital signs: Vital Signs Temp 98.4 F 09/01/20 08:00 Pulse 78 09/01/20 08:00 Resp 20 09/01/20 08:00 BP 147/84 09/01/20 08:00 Pulse Ox 90 L 09/01/20 08:00 Intake & Output 08/31/20 09/01/20 09/01/20 18:59 06:59 18:59 Output Total 9794 340 7463 Balance -1250 -450 -1000 Output: Urine 5372 805 1255 Other: Voiding Method Indwelling Catheter Indwelling Catheter Indwelling Catheter # Bowel Movements 1 - Exam GENERAL EXAM: Alert, very pleasant, morbidly obese 75-year-old white female, currently on 5 L of oxygen, pulse ox of 90% comfortable in no apparent distress. HEAD: Normocephalic/atraumatic. EYES: Normal reaction of pupils, equal size. Conjunctiva pink, sclera white. NOSE: Clear with pink turbinates. THROAT: No erythema or exudates. NECK: No masses, no JVD, no thyroid enlargement, no adenopathy. CHEST: No chest wall deformity. Symmetrical expansion. LUNGS: Equal air entry with crackles in the bilateral posterior bases CVS: Irregular rate and rhythm, normal S1 and S2, no gallops, no murmurs, no rubs ABDOMEN: Soft, nontender. No hepatosplenomegaly, normal bowel sounds, no guarding or rigidity. EXTREMITIES: No clubbing, no edema, no cyanosis, 2+ pulses and upper and lower extremities. MUSCULOSKELETAL: Muscle strength and tone normal. SPINE: No scoliosis or deformity SKIN: No rashes CENTRAL NERVOUS SYSTEM: Alert and oriented -3. No focal deficits, tone is normal in all 4 extremities. PSYCHIATRIC: Alert and oriented -3. Appropriate affect. Intact judgment and insight. - Labs CBC & Chem 7: 08/30/20 04:12 08/30/20 12:28 Labs: Abnormal Lab Results - Last 24 Hours (Table) 08/31/20 08/31/20 09/01/20 Range/Units 16:39 20:16 07:19 POC Glucose (mg/dL) 116 H 140 H 28 L (75-99) mg/dL 09/01/20 09/01/20 09/01/20 Range/Units 07:21 07:34 11:42 POC Glucose (mg/dL) 30 L 155 H 54 L (75-99) mg/dL 09/01/20 09/01/20 09/01/20 Range/Units 12:02 12:18 14:31 POC Glucose (mg/dL) 68 L 65 L 115 H (75-99) mg/dL Microbiology - Last 24 Hours (Table) 08/31/20 06:13 Blood Culture - Preliminary Blood No Growth after 24 hours 08/29/20 02:20 Blood Culture - Preliminary Blood No Growth after 72 hours 08/28/20 22:34 Blood Culture Gram Stain - Final Blood Blood Culture - Final Enterococcus faecium VRE Assessment and Plan Assessment: 1. Acute status changes, multifactorial, possibly related to hypoglycemia and possibility of sepsis which has currently improved 2. Group D enterococcus bacteremia, covered with daptomycin and Zosyn, was given a dose of vancomycin which is currently discontinued 3. Hypotension, possibly related to sepsis, vitamin depletion and dehydration, currently improved 4. Prolonged admission for COVID19 pneumonia from 07/16/2020 through 08/13/2020 5. Possible urinary tract infection. Culture has been negative 6. Hypokalemia, improved 7. History of chronic atrial fibrillation on Eliquis 8. Recent diagnosis of left leg DVT, and since then her Eliquis dose was adjusted to 5 mg twice daily from 2.5 mg twice daily 9. History of CHF 10. History of diabetes mellitus type 2 11. Morbid obesity 12. History of osteoarthritis 13. History of bariatric surgery. Plan: The patient was seen and evaluated by Dr. Rome Currently stable from the pulmonary standpoint We will see as needed I, the cosigning physician, performed a history & physical examination of the patient. Lungs sounds crackles bilateral posterior bases. Maintaining good O2 saturations in the 90s on 5 L/m per nasal cannula. I discussed the assessment and plan of care with my nurse practitioner, Luisa Lubin. I attest to the above note as dictated by her.
[2020-09-01 15:20] VITALS: RESP 22
--- NOTE | 2020-09-01 15:57 | P.PN ---
Subjective Progress Note Date: 09/01/20 ISTORY OF PRESENT ILLNESS This is a 75-year-old female patient of Dr. Betancur with past medical history significant for COVID-19 pneumonia diagnosed July 17 with a month long hospitalization, chronic hypoxic respiratory failure secondary to Covid, paroxysmal atrial fibrillation on eliquis, diabetes mellitus type 2, chronic diastolic heart failure, peptic ulcer disease, chronic anemia. Patient was discharged from the hospital and when to [facility] for subacute rehab. Patient was diagnosed with a DVT in her right lower extremity and readmitted to the hospital treated for acute kidney injury with metabolic acidosis secondary to postobstructive diuresis and nephrotoxic agents, acute PE was ruled out by VQ scan. Echocardiogram at that time revealed EF 55-60% with mild aortic stenosis, mild mitral regurgitation, mild tricuspid regurgitation. She also had abdominal ultrasound as she has chronically elevated liver function tests since her Covid diagnosis which revealed splenomegaly, possible hepatic steatosis, hepatocellular disease. Patient was discharged back to [facility] on August 27. Patient was sent by EMS back to [facility] due to mental status changes and had a blood glucose of 44 give her 1 mg of glucagon 102, blood pressure 120/62, pulse ox 96% CBC was unremarkable. Electrolytes normal, BUN 56 and creatinine 1.19, blood sugar 144. EKG was accelerated junctional rhythm with occasional PVCs. No acute ST changes. Chest x-ray showed no acute abnormality. CAT scan of the brain showed no acute abnormality. Patient was admitted to cardiac stepdown unit but A-Team was called yesterday afternoon for hypotension and worsening mental status blood pressure was in the 70s over 40s and patient was status post 1.5 L of normal saline. She was tachycardic. Patient was seen by Dr. López and started on vancomycin and Zosyn, liver ultrasound and contacted Dr. Rome. Patient was then transferred to the intensive care unit where she is seen today. Patient is quite confused although she is awake and alert. 08/30: Patient remains in the intensive care unit with plans transferred to [facility] floor. Mentation is improved today. She is awake and alert. Speech is slow. She is able to answer questions appropriately. Blood culture blood culture came back group D enterococcus and patient was transitioned off vancomycin to daptomycin and consult will be added for Dr. Kasper. Repeat blood culture from August 29 showing no growth. Patient is also continued on Zosyn. Repeat blood work reveals WBC 9.1, hemoglobin 11, platelet count 204. Sodium 136, potassium 3.0 and has been replaced, chloride 103, CO2 29, BUN 49 and crea tinine 1.23. Blood sugar 178-237. Pulse ox is 96% on 4 L nasal cannula, afebrile, heart rate 78, blood pressure 96/64. If patient continues to show improvement and bacteremia/antibiotic as can be decided, [facility] return to [facility] tomorrow or Thursday. 08/31: Patient has been seen by infectious disease. He doubts that urinary source cause bacteremia. He has ordered a CAT scan of the abdomen and pelvis which revealed bilateral lung base infiltrates correlate for atypical pneumonia. Some underlying pulmonary fibrosis may be present. Ascites. Periumbilical fat-containing hernia. Patient has been seen by wound care team for ulceration to the coccyx and left lower extremity. Patient's mental status is improved but not back to her baseline. She has been afebrile, heart rate 68, blood pressure 106/68, pulse ox 99% on 4 L nasal cannula. Anticipate discharge back to subacute rehab on Thursday. Blood culture is positive for group D enterococcus. was seen with the at bedside, edema noted on bilateral legs, patient requires assistance in turning, also has a decubitus ulcer, in the sacrum for which wound care is now following, no current Knight catheter, CAT scan shows local ascites, with lap banding present, pulmonary imaging noted some bilateral basilar infiltrates, without any effusion, pulmonary fibrosis is also contemplated. He is followed by Dr. Rome IV Lasix 40 mg 1 dose, maintained on 40 twice a day, pulse ox desaturated today, 90s on 5 L nasal cannula, blood cultures have revealed no growth, remains on daptomycin and Zosyn, for initial bacteremia VRE fascium. Patient is significantly debilitated sill, with diminished strength in the left extremity, patient also has been noted to have recurrent hypoglycemic, is not eating, I less than 20% of nutrition. Levemir 20 has been discontinued, and would start on a scale with 3 units prior to meals if blood sugar is over 110. REVIEW OF SYSTEMS Constitutional: No fever, no chills, no night sweats. No weight change. No weakness, fatigue or lethargy. No daytime sleepiness. EENT: No headache. No blurred vision or double vision, no loss of vision. No loss of Hearing, no ringing in the ears, no dizziness. No nasal drainage or congestion. No epistaxis. No sore throat. Lungs: No shortness of breath, cough, no sputum production. No wheezing. Cardiovascular: No chest pain, no lower extremity edema. No palpitations. No paroxysmal nocturnal dyspnea. No orthopnea. No lightheadedness or dizziness. No syncopal episodes. Abdominal: No abdominal pain. No nausea, vomiting. No diarrhea. No constipation. No bloody or tarry stools.. No loss of appetite. Genitourinary: No dysuria, increased frequency, urgency. No urinary retention. Musculoskeletal: No myalgias. No muscle weakness, no gait dysfunction, no frequent falls. No back pain. No neck pain. Integumentary: No wounds, no lesions. No rash or pruritus. No unusual bruising. No change in hair or nails. Neurologic: No aphasia. No facial droop. Improved change in mentation. No head injury. No headache. No paralysis. No paresthesia. Psychiatric: No depression. No anxiety. No mood swings. Endocrine: No abnormal blood sugars. No weight change. No excessive sweating or thirst. No cold intolerance. Objective - Vital Signs Vital signs: Vital Signs Temp 98.4 F 09/01/20 08:00 Pulse 78 09/01/20 08:00 Resp 20 09/01/20 08:00 BP 147/84 09/01/20 08:00 Pulse Ox 90 L 09/01/20 08:00 Intake & Output 08/31/20 09/01/20 09/01/20 18:59 06:59 18:59 Output Total 4380 342 8246 Balance -1250 -450 -1000 Output: Urine 3985 770 0808 Other: Voiding Method Indwelling Catheter Indwelling Catheter Indwelling Catheter # Bowel Movements 1 - Constitutional General appearance: Present: cooperative, no acute distress - EENT Eyes: Present: anicteric sclerae, EOMI, PERRLA, normal appearance ENT: Present: NA/AT, normal oropharynx - Neck Neck: Present: normal ROM - Respiratory Respiratory: bilateral: CTA, negative: diminished, dullness - Cardiovascular Rhythm: regular Heart sounds: normal: S1, S2 Abnormal Heart Sounds: Absent: systolic murmur, diastolic murmur, rub, S3 Gallop, S4 Gallop, click, other - Gastrointestinal General gastrointestinal: Present: organomegaly, soft - Labs CBC & Chem 7: 08/30/20 04:12 08/30/20 12:28 Labs: Abnormal Lab Results - Last 24 Hours (Table) 08/31/20 08/31/20 08/31/20 Range/Units 06:13 06:13 16:39 POC Glucose (mg/dL) 116 H (75-99) mg/dL C-Reactive Protein 3.2 H (0.0-0.8) mg/dL Procalcitonin 0.47 H (0.02-0.09) ng/mL 08/31/20 09/01/20 09/01/20 Range/Units 20:16 07:19 07:21 POC Glucose (mg/dL) 140 H 28 L 30 L (75-99) mg/dL C-Reactive Protein (0.0-0.8) mg/dL Procalcitonin (0.02-0.09) ng/mL 09/01/20 09/01/20 09/01/20 Range/Units 07:34 11:42 12:02 POC Glucose (mg/dL) 155 H 54 L 68 L (75-99) mg/dL C-Reactive Protein (0.0-0.8) mg/dL Procalcitonin (0.02-0.09) ng/mL 09/01/20 Range/Units 12:18 POC Glucose (mg/dL) 65 L (75-99) mg/dL C-Reactive Protein (0.0-0.8) mg/dL Procalcitonin (0.02-0.09) ng/mL Microbiology - Last 24 Hours (Table) 08/31/20 06:13 Blood Culture - Preliminary Blood No Growth after 24 hours 08/29/20 02:20 Blood Culture - Preliminary Blood No Growth after 72 hours 08/28/20 22:34 Blood Culture Gram Stain - Final Blood Blood Culture - Final Enterococcus faecium VRE Assessment and Plan Plan: . Acute metabolic encephalopathy most likely secondary to hypoglycemia. Patient not yet back to her baseline. 2. Hypovolemic shock requiring IV fluid resuscitation and transferred to the intensive care unit. Consult with Dr. Wild constantino. 3. Recurrent hypoglycemia, on Levemir 20, and this will be discontinued for now, continue on pre-meal scale NovoLog, discontinued 3 units before breakfast lunch and dinner. Has recurrent episodes, was required glucagon and orange juice 3. Possible urinary tract infection. Patient has been started on IV antibiotics. 4. Hypokalemia status post replacement. 5. Bacteremia. Waiting for blood cultures to finalize. Unknown source of bacteremia. Consult with Dr. Ranjith constantino. Patient is currently on daptomycin. 6. Rght lower extremity DVT. Continue eliquis. 7. Elevated liver function test most likely secondary to Covid 19 as she was normal on her past admission initially. Numbers are stable from August 15. 8. Chronic thrombocytopenia resolved. Continue to monitor. 9. Chronic hypoxic respiratory failure on oxygen at 2-3 L nasal cannula. Continue oxygen therapy. Pulmonary consult. 10. Paroxysmal atrial fibrillation. Continue flecainide 50 g twice daily, Lopressor 12.5 mg daily, eliquis 2.5 mg twice daily. 11. Diabetes mellitus type 2. was Levemir 40 units daily, NovoLog 3 units with breakfast and NovoLog scale before meals and at bedtime, Januvia 100 mg daily or equivalent. All diabetic medications discontinued as of September 01 secondary to severe hypoglycemia blood sugars in the 30 12. Recent Covid 19 pneumonia with elevated inflammatory markers, stable. Continue albuterol inhaler as needed. 13. Chronic diastolic heart failure. Bumex and Zaroxolyn on hold. Cardiology consult. 14. Peptic ulcer disease and GI prophylaxis. Protonix 40 mg twice daily. 15. Stage II decubitus ulcers to the coccyx area. Wound Center consult. 16. DVT prophylaxis. Heparin drip for now and transition to eliquis. DISCHARGE PLAN RETURN TO SUBACUTE REHAB on Thursday.
--- NOTE | 2020-09-01 16:41 | PN ---
PROGRESS NOTE DATE OF SERVICE: 09/01/2020 REASON FOR FOLLOWUP: VRE bacteremia. INTERVAL HISTORY: Patient is currently afebrile. She seems to have slight mental status changes and weakness today. Denies any chest pain. No shortness of breath. No cough. No abdominal pain or diarrhea. PHYSICAL EXAMINATION: Blood pressure 136/69, pulse of 94, temperature is 97.5, she is 93% on 5 liters nasal cannula. GENERAL DESCRIPTION: An elderly female lying in bed in no distress. Respiratory System: Unlabored breathing clear to auscultation anteriorly. HEART: S1, S2. Regular rate and rhythm. ABDOMEN: Soft, no tenderness. Examination of sacral area did have multiple pressure ulcers, but no definite cellulitis. LABS: Sedimentation rate is 14. CRP was 3.2. Blood culture repeat has been negative. DIAGNOSTIC IMPRESSION AND PLAN: Patient with VRE bacteremia no obvious focus. Urine showing Vianey albicans. CT of abdomen and pelvis normal. The patient will need at least 2 weeks of IV daptomycin from negative blood cultures with plan for repeat blood cultures after she completes her antibiotic therapy and if no recurrence will not need any further workup. All questions were answered. was at bedside. MMODL / IJN: [id number] /
[2020-09-01] MEDS: ASCORBIC ACID 500 MG TAB PO SCH (16:51)
[2020-09-01 16:55] LABS: Glucose,Whole Blood 133 mg/dL (75-99)
[2020-09-01] MEDS: Acetaminophen-Codeine 300-30mg TAB PO PRN (16:55)
[2020-09-01 21:14] LABS: Glucose,Whole Blood 150 mg/dL (75-99)
[2020-09-01] MEDS: MELATONIN 3 MG TABLET PO SCH (22:29)
[2020-09-02 03:12] VITALS: BP 162/81; PULSE 73; TEMP 96.7
[2020-09-02] MEDS: Acetaminophen-Codeine 300-30mg TAB PO PRN (03:59)
[2020-09-02 04:10] LABS: Glucose,Whole Blood 136 mg/dL (75-99)
[2020-09-02] MEDS: PIPERACILLIN-TAZOBACTAM 3.375 GM in SODIUM CHLORIDE 0.9% 100 ML IVPB SCH (05:21)
--- NOTE | 2020-09-03 08:13 | P.DS ---
Providers Date of admission: 08/28/20 16:22 Expected date of discharge: 09/02/20 Attending physician: Ld Betancur Consults: 08/28/20 16:39 Consult Physician Urgent Consulting Provider: [facility] Consult Reason/Comments: Elevated troponin Do you want consulting provider notified?: Yes 08/28/20 16:41 Consult Physician Urgent Consulting Provider: Kee Rome Consult Reason/Comments: Fever Do you want consulting provider notified?: Yes 08/30/20 11:28 Consult Physician Routine Consulting Provider: Kari Kasper Consult Reason/Comments: bacteremia Do you want consulting provider notified?: Yes Primary care physician: [facility] Course: HISTORY OF PRESENT ILLNESS This is a 75-year-old female patient of Dr. Betancur with past medical history significant for COVID-19 pneumonia diagnosed July 17 with a month long hospitalization, chronic hypoxic respiratory failure secondary to Covid, paroxysmal atrial fibrillation on eliquis, diabetes mellitus type 2, chronic diastolic heart failure, peptic ulcer disease, chronic anemia. Patient was discharged from the hospital and when to [facility] for subacute rehab. Patient was diagnosed with a DVT in her right lower extremity and readmitted to the hospital treated for acute kidney injury with metabolic acidosis secondary to postobstructive diuresis and nephrotoxic agents, acute PE was ruled out by VQ scan. Echocardiogram at that time revealed EF 55-60% with mild aortic stenosis, mild mitral regurgitation, mild tricuspid regurgitation. She also had abdominal ultrasound as she has chronically elevated liver function tests since her Covid diagnosis which revealed splenomegaly, possible hepatic steatosis, hepatocellular disease. Patient was discharged back to [facility] on August 27. Patient was sent by EMS back to [facility] due to mental status changes and had a blood glucose of 44 give her 1 mg of glucagon 102, blood pressure 120/62, pulse ox 96% CBC was unremarkable. Electrolytes normal, BUN 56 and creatinine 1.19, blood sugar 144. EKG was accelerated junctional rhythm with occasional PVCs. No acute ST changes. Chest x-ray showed no acute abnormality. CAT scan of the brain showed no acute abnormality. Patient was admitted to cardiac stepdown unit but A-Team was called yesterday afternoon for hypotension and worsening m ental status blood pressure was in the 70s over 40s and patient was status post 1.5 L of normal saline. She was tachycardic. Patient was seen by Dr. López and started on vancomycin and Zosyn, liver ultrasound and contacted Dr. Rome. Patient was then transferred to the intensive care unit where she is seen today. Patient is quite confused although she is awake and alert. 08/30: Patient remains in the intensive care unit with plans transferred to [facility] floor. Mentation is improved today. She is awake and alert. Speech is slow. She is able to answer questions appropriately. Blood culture blood culture came back group D enterococcus and patient was transitioned off vancomycin to daptomycin and consult will be added for Dr. Kasper. Repeat blood culture from August 29 showing no growth. Patient is also continued on Zosyn. Repeat blood work reveals WBC 9.1, hemoglobin 11, platelet count 204. Sodium 136, potassium 3.0 and has been replaced, chloride 103, CO2 29, BUN 49 and creat inine 1.23. Blood sugar 178-237. Pulse ox is 96% on 4 L nasal cannula, afebrile, heart rate 78, blood pressure 96/64. If patient continues to show improvement and bacteremia/antibiotic as can be decided, [facility] tomorrow or Thursday. 08/31: Patient has been seen by infectious disease. He doubts that urinary source cause bacteremia. He has ordered a CAT scan of the abdomen and pelvis which revealed bilateral lung base infiltrates correlate for atypical pneumonia. Some underlying pulmonary fibrosis may be present. Ascites. Periumbilical fat-containing hernia. Patient has been seen by wound care team for ulceration to the coccyx and left lower extremity. Patient's mental status is improved but not back to her baseline. She has been afebrile, heart rate 68, blood pressure 106/68, pulse ox 99% on 4 L nasal cannula. Anticipate discharge back to subacute rehab on Thursday. Blood culture is positive for group D enterococcus. was seen with the at bedside, edema noted on bilateral legs, patient requires assistance in turning, also has a decubitus ulcer, in the sacrum for which wound care is now following, no current Knight catheter, CAT scan shows local ascites, with lap banding present, pulmonary imaging noted some bilateral basilar infiltrates, without any effusion, pulmonary fibrosis is also contemplated. He is followed by Dr. Rome IV Lasix 40 mg 1 dose, maintained on 40 twice a day, pulse ox desaturated today, 90s on 5 L nasal cannula, blood cultures have revealed no growth, remains on daptomycin and Zosyn, for initial bacteremia VRE fascium. Patient is significantly debilitated sill, with diminished strength in the left extremity, patient also has been noted to have recurrent hypoglycemic, is not eating, I less than 20% of nutrition. Levemir 20 has been discontinued, and would start on a scale with 3 units prior to meals if blood sugar is over 110. 09/02: On the morning of September 02, staff found patient unresponsive with no heart beat and no respirations. Patient was a no CODE STATUS CPR was not initiated. Patient's family was notified. DISCHARGE DIAGNOSES 1. Acute metabolic encephalopathy most likely secondary to hypoglycemia and sepsis with VRE bacteremia, POA. 2. Hypovolemic shock . 3. Possible urinary tract infection, ruled out. 4. Hypokalemia. 5. VRE Bacteremia of unclear source. Preliminary cause of 6. Rght lower extremity DVT. 7. Elevated liver function test most likely secondary to Covid 19 as she was normal on her past admission initially. 8. Chronic thrombocytopenia resolved. 9. Chronic hypoxic respiratory failure on oxygen at 2-3 L nasal cannula. 10. Paroxysmal atrial fibrillation. 11. Diabetes mellitus type 2 uncontrolled secondary to hypoglycemia. 12. Recent Covid 19 pneumonia with elevated inflammatory markers, stable. 13. Chronic diastolic heart failure. 14. Peptic ulcer disease. 15. Stage II decubitus ulcers to the coccyx area. Impression and plan of care have been directed as dictated by the signing physician. Leeann Rose nurse practitioner acting as scribe for signing physician. Plan - Discharge Summary Discharge Rx Participant: No New Discharge Prescriptions: No Action Flecainide [Tambocor] 50 mg PO BID@0800,1600 Cholecalciferol (Vitamin D3) [Vitamin D3 (5000 Iu)] 125 mcg PO DAILY@0800 Diclofenac Sodium [Voltaren Arthritis Pain 1% Gel] 2 gm TOPICAL QID PRN PRN Reason: Pain Albuterol Inhaler [Ventolin Hfa Inhaler] 2 puff INHALATION RT-Q6H PRN PRN Reason: Shortness Of Breath Ascorbic Acid [Vitamin C] 1,000 mg PO DAILY@1600 Benzonatate [Tessalon Perles] 100 mg PO TID@0800,1200,1700 Bumetanide [BUMEX] 1 mg PO BID@0800,1700 Insulin Aspart [NovoLOG Flexpen] See Protocol SQ ACHS Insulin Aspart [NovoLOG Flexpen] 6 units SQ AC-BID@1100,1600 Insulin Aspart [NovoLOG Flexpen] 3 units SQ DAILY@0700 Insulin Glargine,Hum.rec.anlog [Lantus Solostar] 40 unit SQ HS@1999 Magnesium Hydroxide [Milk of Magnesia Concentrate] 7,200 mg PO Q48H PRN PRN Reason: Constipation Metoprolol Tartrate [Lopressor] 12.5 mg PO DAILY@0600 Oxymetazoline 0.05% Nasl [place] [Afrin 0.05% Nasal [place]] 2 spray EA NOSTRIL BID@0800,1600 SILVER sulfADIAZINE CREAM [Silvadene Cream] 1 applic TOPICAL BID Zinc Sulfate [Orazinc] 220 mg PO DAILY@0600 Periguard Ointment 1 applic TOPICAL DAILY PRN PRN Reason: MASD Omeprazole 20 mg PO DAILY@0600 Cholestyramine (with Sugar) [Questran Packet] 4 gm PO BID@0800,1600 Apixaban [Eliquis] 5 mg PO BID@0600,1999 Spironolactone [Aldactone] 12.5 mg PO DAILY@0600 Melatonin 6 mg PO HS@1999 Discharge Medication List Flecainide [Tambocor] 50 mg PO BID@0800,1600 10/20/19 [History] Cholecalciferol (Vitamin D3) [Vitamin D3 (5000 Iu)] 125 mcg PO DAILY@0800 07/09/20 [History] Diclofenac Sodium [Voltaren Arthritis Pain 1% Gel] 2 gm TOPICAL QID PRN 07/09/20 [History] Albuterol Inhaler [Ventolin Hfa Inhaler] 2 puff INHALATION RT-Q6H PRN 07/16/20 [History] Ascorbic Acid [Vitamin C] 1,000 mg PO DAILY@1600 08/22/20 [History] Benzonatate [Tessalon Perles] 100 mg PO TID@0800,1200,1700 08/22/20 [History] Bumetanide [BUMEX] 1 mg PO BID@0800,1700 08/22/20 [History] Insulin Aspart [NovoLOG Flexpen] 3 units SQ DAILY@0700 08/22/20 [History] Insulin Aspart [NovoLOG Flexpen] 6 units SQ AC-BID@1100,1600 08/22/20 [History] Insulin Aspart [NovoLOG Flexpen] See Protocol SQ ACHS 08/22/20 [History] Insulin Glargine,Hum.rec.anlog [Lantus Solostar] 40 unit SQ HS@199908/22/20 [History] Magnesium Hydroxide [Milk of Magnesia Concentrate] 7,200 mg PO Q48H PRN 08/22/20 [History] Metoprolol Tartrate [Lopressor] 12.5 mg PO DAILY@0600 08/22/20 [History] Oxymetazoline 0.05% Nasl [place] [Afrin 0.05% Nasal [place]] 2 spray EA NOSTRIL BID@0800,159908/22/20 [History] SILVER sulfADIAZINE CREAM [Silvadene Cream] 1 applic TOPICAL BID 08/22/20 [ History] Zinc Sulfate [Orazinc] 220 mg PO DAILY@0608/22/20 [History] Apixaban [Eliquis] 5 mg PO BID@0600,199908/28/20 [History] Cholestyramine (with Sugar) [Questran Packet] 4 gm PO BID@0800,1600 08/28/20 [History] Melatonin 6 mg PO HS@199908/28/20 [History] Omeprazole 20 mg PO DAILY@0608/28/20 [History] Periguard Ointment 1 applic TOPICAL DAILY PRN 08/28/20 [History] Spironolactone [Aldactone] 12.5 mg PO DAILY@0608/28/20 [History] Follow up Appointment(s)/Referral(s): Ben Valdes MD [STAFF PHYSICIAN] - 2 Weeks Ld Betancur MD [Primary Care Provider] - 1-2 days Discharge Disposition: - Preliminary Cause of Preliminary Cause of : VRE Bacteremia
== END 2020-09-02 08:41 | disposition expired | DRG 871 ==
LOC: EC 12:51 → 3SCARD 16:22 → 2SICU 23:53 → 4SSUR 08-30 21:29
PROVIDERS: ADMIT Internal Medicine Geriatric Medicine; ATTEND Internal Medicine Geriatric Medicine
PROC: 05H533Z Insertion of Infusion Device into Right Subclavian Vein, Percutaneous Approach (ICD-10-PCS; principal; 2020-08-28)
PROC: 3E033XZ Introduction of Vasopressor into Peripheral Vein, Percutaneous Approach (ICD-10-PCS; 2020-08-29)
DX: A41.81 Sepsis due to Enterococcus (principal); G93.41 Metabolic encephalopathy; R65.21 Severe sepsis with septic shock; J96.11 Chronic respiratory failure with hypoxia; N17.9 Acute kidney failure, unspecified; E87.2 Acidosis; R18.8 Other ascites; I48.19 Other persistent atrial fibrillation; L97.122 Non-pressure chronic ulcer of left thigh with fat layer exposed; I50.32 Chronic diastolic (congestive) heart failure; K77 Liver disorders in diseases classified elsewhere; Z16.21 Resistance to vancomycin; Z68.42 Body mass index [BMI] 45.0-49.9, adult; E11.649 Type 2 diabetes mellitus with hypoglycemia without coma; D69.6 Thrombocytopenia, unspecified; L89.152 Pressure ulcer of sacral region, stage 2; J84.10 Pulmonary fibrosis, unspecified; E11.622 Type 2 diabetes mellitus with other skin ulcer; E66.01 Morbid (severe) obesity due to excess calories; Z79.4 Long term (current) use of insulin; Z66 Do not resuscitate; K76.0 Fatty (change of) liver, not elsewhere classified; B94.8 Sequelae of other specified infectious and parasitic diseases; E87.6 Hypokalemia; E86.0 Dehydration; I49.3 Ventricular premature depolarization; I08.3 Combined rheumatic disorders of mitral, aortic and tricuspid valves; F32.9 Major depressive disorder, single episode, unspecified; D64.9 Anemia, unspecified; M54.9 Dorsalgia, unspecified; K27.9 Peptic ulcer, site unspecified, unspecified as acute or chronic, without hemorrhage or perforation; R16.1 Splenomegaly, not elsewhere classified; K42.9 Umbilical hernia without obstruction or gangrene; M19.90 Unspecified osteoarthritis, unspecified site; R77.8 Other specified abnormalities of plasma proteins; Z79.01 Long term (current) use of anticoagulants; Z79.899 Other long term (current) drug therapy; Z86.718 Personal history of other venous thrombosis and embolism; Z87.01 Personal history of pneumonia (recurrent); Z98.84 Bariatric surgery status; Z90.722 Acquired absence of ovaries, bilateral; Z90.710 Acquired absence of both cervix and uterus; Z87.42 Personal history of other diseases of the female genital tract; Z96.653 Presence of artificial knee joint, bilateral; Z98.42 Cataract extraction status, left eye; Z98.41 Cataract extraction status, right eye; Z98.890 Other specified postprocedural states; Z71.3 Dietary counseling and surveillance; Z88.1 Allergy status to other antibiotic agents; Z88.8 Allergy status to other drugs, medicaments and biological substances; Z91.048 Other nonmedicinal substance allergy status; Z80.1 Family history of malignant neoplasm of trachea, bronchus and lung; Z82.49 Family history of ischemic heart disease and other diseases of the circulatory system; Z82.5 Family history of asthma and other chronic lower respiratory diseases; Z82.61 Family history of arthritis; Z81.8 Family history of other mental and behavioral disorders; Z84.89 Family history of other specified conditions
CPT/HCPCS: 36415; 36556; 70450; 71045; 71046; 74176; 80053; 80061; 80306; 81001; 82140; 83605; 83735; 84132; 84145; 84484; 85025; 85610; 85652; 85730; 86140; 87040; 87077; 87086; 87186; 93005; 94640; 96361; 96365; 96375; 99285